=== PATIENT | male | born 1940 | race Caucasian/White ===

== ENCOUNTER → 2020-01-28 09:28 | Outpatient (BNVA) | payer MEDICARE, SELFPAY | PROVIDERS: PCP Internal Medicine; Referring Provider Internal Medicine; Visit Provider Internal Medicine Cardiovascular Disease | DX: I48.20 Chronic atrial fibrillation, unspecified (principal) | CPT/HCPCS: 93005; 99212 ==

== ENCOUNTER 2020-02-26 11:00 | Outpatient (REF) | payer MEDICARE, SELFPAY ==
[2020-02-26 14:15] LABS: MANUAL DIFF FLAG NO
[2020-02-26 14:22] LABS: Basophils Absolute Auto 0.1 X10*3/uL (0.0-0.2); Basophils Percent Auto 0.8 % (0-2); Eosinophils Absolute Auto 0.4 X10*3/uL (0.0-0.4); Eosinophils Percent Auto 3.9 % (0-4); Hematocrit 44.1 % (42-52); Hemoglobin 14.5 g/dl (14.0-18.0); Imm Gran Abs Auto 0.04 X10*3/uL (0.00-0.03); Imm Gran Pct Auto 0.4 % (0.0-0.4); Lymphocytes Percent Auto 19.1 % (20-40); Mean Corpuscular HGB Conc 32.9 g/dl (31.0-36.0); Mean Corpuscular Hemoglobin 30.3 pg (27.0-33.0); Mean Corpuscular Volume 92.3 fL (80-98); Mean Platelet Volume 9.8 fL (9.4-12.4); Monocytes Percent Auto 9.5 % (2-11); Neutrophils Absolute Auto 6.8 X10*3/uL (2.0-8.3); Neutrophils Percent Auto 66.3 % (45-73); Platelet Count 333 X10*3/uL (160-400); Red Blood Count 4.78 X10*6/uL (4.60-5.80); Red Cell Distribution Width 12.3 % (11.0-16.0); White Blood Count 10.3 X10*3/uL (4.8-10.8)
[2020-02-26 14:44] LABS: Alanine Aminotransferase 8 U/L (0-40); Albumin Level 4.1 g/dL (3.5-5.0); Alkaline Phosphatase 110 U/L (39-117); Anion Gap 13 (12-20); Aspartate Amino Transferase 10 U/L (5-37); Bilirubin Total 0.4 mg/dL (0.0-1.0); Blood Urea Nitrogen 17 mg/dL (9-16); Calcium 9.1 mg/dL (8.4-10.2); Carbon Dioxide 31 mmol/L (22-29); Chloride 97 mmol/L (96-108); Estimated Glomerular Filt Rate > 60; Glucose Random 83 mg/dL (60-115); Potassium 4.9 mmol/l (3.3-5.1); Sodium 136 mmol/L (135-145); Total Protein 6.6 g/dL (6.5-8.0)
== END 2020-02-26 11:01 | disposition home or self-care (01) ==
LOC: HO.10HDL 11:00
PROVIDERS: Absent Provider Internal Medicine Cardiovascular Disease; PCP Internal Medicine; Visit Provider Internal Medicine
DX: I48.91 Unspecified atrial fibrillation (principal); I10 Essential (primary) hypertension; J44.9 Chronic obstructive pulmonary disease, unspecified; E78.00 Pure hypercholesterolemia, unspecified
CPT/HCPCS: 36415; 80053; 85025

== ENCOUNTER → 2020-09-05 10:24 | Outpatient (BNVA) | payer MEDICARE, SELFPAY | PROVIDERS: PCP Internal Medicine; Visit Provider Nurse Practitioner | DX: Z13.89 Encounter for screening for other disorder (principal) | CPT/HCPCS: Q3014 ==

== ENCOUNTER 2020-10-07 09:53 | Outpatient (REF) | payer MEDICARE, SELFPAY ==
[2020-10-07 10:15] LABS: MANUAL DIFF FLAG NO
[2020-10-07 10:25] LABS: Basophils Absolute Auto 0.1 X10*3/uL (0.0-0.2); Basophils Percent Auto 0.5 % (0-2); Eosinophils Absolute Auto 0.3 X10*3/uL (0.0-0.4); Eosinophils Percent Auto 2.8 % (0-4); Hemoglobin 14.5 g/dl (14.0-18.0); Imm Gran Abs Auto 0.06 X10*3/uL (0.00-0.03); Imm Gran Pct Auto 0.5 % (0.0-0.4); Lymphocytes Absolute Auto 1.9 X10*3/uL (1.2-4.9); Lymphocytes Percent Auto 16.8 % (20-40); Mean Corpuscular Hemoglobin 29.7 pg (27.0-33.0); Mean Platelet Volume 8.9 fL (9.4-12.4); Monocytes Absolute Auto 1.1 X10*3/uL (0.1-1.2); Monocytes Percent Auto 9.6 % (2-11); Neutrophils Absolute Auto 7.9 X10*3/uL (2.0-8.3); Neutrophils Percent Auto 69.8 % (45-73); Platelet Count 346 X10*3/uL (160-400); Red Blood Count 4.89 X10*6/uL (4.60-5.80); Red Cell Distribution Width 12.6 % (11.0-16.0); White Blood Count 11.3 X10*3/uL (4.8-10.8)
[2020-10-07 11:15] LABS: Prostate Specific Antigen Scr 3.07 ng/mL (<0.05-4.0)
[2020-10-07 11:16] LABS: Alanine Aminotransferase 10 U/L (0-40); Albumin Level 4.3 g/dL (3.5-5.0); Alkaline Phosphatase 119 U/L (39-117); Anion Gap 13 (12-20); Aspartate Amino Transferase 10 U/L (5-37); Bilirubin Total 0.8 mg/dL (0.0-1.0); Blood Urea Nitrogen 15 mg/dL (9-16); Calcium 9.6 mg/dL (8.4-10.2); Carbon Dioxide 31 mmol/L (22-29); Chloride 93 mmol/L (96-108); Cholesterol 137 mg/dL; Estimated Glomerular Filt Rate > 60; Glucose Fasting 106 mg/dL (60-99); HDL Cholesterol 45 mg/dL; LDL Cholesterol Calculated 85 mg/dl; Potassium 4.7 mmol/L (3.3-5.1); Sodium 132 mmol/L (135-145); Total Protein 6.9 g/dL (6.5-8.0); Triglycerides 38 mg/dL
== END 2020-10-07 09:54 | disposition home or self-care (01) ==
LOC: HO.10HDL 09:53
PROVIDERS: Visit Provider Internal Medicine
DX: Z12.5 Encounter for screening for malignant neoplasm of prostate (principal); I48.91 Unspecified atrial fibrillation; E78.00 Pure hypercholesterolemia, unspecified; J44.9 Chronic obstructive pulmonary disease, unspecified; I10 Essential (primary) hypertension; N40.0 Benign prostatic hyperplasia without lower urinary tract symptoms
CPT/HCPCS: 36415; 80053; 80061; 84153; 85025

== ENCOUNTER → 2020-12-26 10:18 | Outpatient (REF) | payer MEDICARE, SELFPAY ==
--- NOTE | 2020-12-26 10:30 | CA_ITS ---
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 Normal LV systolic function 2. Mildly dilated left atrium 3. Normal cardiac valvular Doppler 4. Normal RV systolic pressure 5. No gross pericardial effusion Findings Left Ventricle Normal left ventricular size, thickness, and systolic function. The visually estimated ejection fraction is between 60-65%. Diastolic function is indeterminate on the basis of available data. Right Ventricle Normal right ventricular cavity size and systolic function. Atria The left atrium is mildly dilated. There is no evidence of interatrial shunt. The right atrium is normal in size. Aortic Valve There is mild calcification of the aortic valve. There is mild thickening of the aortic valve. There is no aortic valve stenosis. There is no aortic valve regurgitation. Mitral Valve There is mild anterior and posterior mitral leaflet thickening. There is trace mitral valve regurgitation. There is no mitral valve stenosis. Pulmonic Valve The pulmonic valve was not well visualized. Tricuspid Valve Likely normal tricuspid valve structure and function. There is mild tricuspid valve regurgitation. The right ventricular systolic pressure is normal. Normal right atrial pressure. There is no evidence of pulmonary hypertension. Great Vessels All visible segments of the aorta are normal in size. The pulmonary artery was not well visualized. Venous The inferior vena cava is normal in size and collapses greater than 50% with inspiration. Pericardium/Pleural There is no evidence of pericardial effusion. Prior Study Comparison No significant change compared to prior study. Measurements 2D Linear Measurements IVSd: 1.15 0.6-0.9/0.6-1.0 cm LVIDd: 3.76 3.9-5.3/4.2-5.9 cm LVIDd Index: 1.92 2.4-3.2/2.2-3.1 cm/m2 LVIDs: 2.54 2.0-3.6 cm LVPWd: 1.43 0.7-1.1 cm Ao Root: 2.80 2.1-3.5 cm LA Diam: 4.10 2.7-3.8/3.0-4.0 cm LAIDs Index: 2.09 1.5-2.3 cm/m2 LV Mass: 209.75 67-162/88-224 g LV Mass Index: 107.02 43-95/49-115 g/m2 LVOT Diam: 2.30 3.0+(-)1.3 cm 2D Systolic Function EF 4C: 73.60 >55% EF 2C: 55.70 >55% EF BiP: 66.70 >55% Mitral Valve MV Pk E: 0.97 MV Decel Time: 126.00 E'Lateral: 8.54 E'Medial: 7.56 E/E' Med: 12.80 E/E' Lat: 11.30 PHT: 37.00 MVA PHT: 5.95 Decel Murray: 7.68 Aortic Valve AoV Pk Jamel: 1.00 AoV Pk Grad: 4.00 LVOT LVOT Pk Jamel: 0.78 LVOT Mn Jamel: 0.60 LVOT VTI: 0.19 LVOT Pk Grad: 2.00 LVOT Mn Grad: 2.00 LVOT Diam: 2.30 LVOT Area: 4.15 Diastolic Function MV Pk E: 0.97 E'Medial: 7.56 E/E' Med: 12.80 E' Laterial: 8.54 E/E' Lat: 11.30 Right Ventricle TAPSE (mm): 1.82 Tricuspid Valve TR Pk Jamel: 2.79 TR Pk Grad: 31.00 RA Press: 3.00 RVSP: 34.00 Great Vessels Aorta Ao Root-2D: 2.80 2.0-3.7 cm Updated in Other Vendor System with Status of Final Moshe Morgan MD electronically signed on 12/26/2020 5:01:53 PM with status of Final
== END ==
LOC: HO.CARD 10:18
PROVIDERS: PCP Internal Medicine; Visit Provider Internal Medicine
DX: I65.29 Occlusion and stenosis of unspecified carotid artery (principal); I48.91 Unspecified atrial fibrillation; R60.9 Edema, unspecified
CPT/HCPCS: 93306

== ENCOUNTER 2021-01-05 13:45 | Outpatient (REF) | payer MEDICARE, SELFPAY ==
--- NOTE | ~2021-01-05 | US_ITS ---
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 Hypertension. Hyperlipidemia. COMPARISON: Comparison is made to a previous study dated 12/28/2017 which demonstrated bilateral 0-49% internal carotid artery stenoses. TECHNIQUE: Real-time ultrasound and Doppler techniques (integrating B-mode 2-D vascular images, Doppler spectral analysis and color-flow Doppler imaging) were utilized to interrogate the extracranial carotid arteries, the vertebral arteries and proximal subclavian arteries bilaterally. The degree of stenosis is determined by criteria similar to NASCET. FINDINGS: Right Side: 1. There is moderate atherosclerotic plaque seen in the bifurcation/proximal ICA region. 2. The common carotid artery PSV proximally is 112 cm/s and distally 105 cm/s. 3. The proximal internal carotid artery velocities are 150 cm/s systolic and 20 cm/s diastolic. 4. The proximal external carotid artery PSV is 150 cm/s. 5. The vertebral artery shows antegrade flow. 6. The subclavian artery waveforms are normal. Left Side: 1. There is moderate atherosclerotic plaque seen in the bifurcation/proximal ICA region. 2. The common carotid artery PSV proximally is 71 cm/s and distally 73 cm/s. 3. The proximal internal carotid artery velocities are 139 cm/s systolic and 35 cm/s diastolic. 4. The proximal external carotid artery PSV is 147 cm/s. 5. The vertebral artery shows antegrade flow. 6. The subclavian artery waveforms are elevated with stenotic velocities measuring 230 cm/s. US/US carotid duplex BI IMPRESSION: 1. RIGHT: Moderate, hemodynamically significant stenosis of the proximal right internal carotid artery corresponding to a 50-79% stenosis by velocity criteria. 2. LEFT: Moderate, hemodynamically significant stenosis of the proximal left internal carotid artery corresponding to a 50-79% stenosis by velocity criteria. 3. There has been an increase in the category severity of disease bilaterally when compared to the previous study dated 12/28/2017. 4. 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 However, both vertebral arteries remain antegrade. 5. There is an arrhythmia present during the duplex portion of the examination. This would be best evaluated with an EKG.
== END 2021-01-05 13:46 | disposition home or self-care (01) ==
LOC: HO.US 13:45
PROVIDERS: PCP Internal Medicine; Visit Provider Internal Medicine
DX: I65.29 Occlusion and stenosis of unspecified carotid artery (principal); I48.91 Unspecified atrial fibrillation; R60.9 Edema, unspecified
CPT/HCPCS: 93880

== ENCOUNTER → 2021-01-26 10:26 | Outpatient (BNVA) | payer MEDICARE, SELFPAY | PROVIDERS: PCP Internal Medicine; Referring Provider Internal Medicine; Visit Provider Internal Medicine Cardiovascular Disease | DX: I48.20 Chronic atrial fibrillation, unspecified (principal); I10 Essential (primary) hypertension | CPT/HCPCS: 93005; 99212 ==

== ENCOUNTER → 2021-03-03 10:11 | Outpatient (BNVA) | payer MEDICARE, SELFPAY | PROVIDERS: PCP Internal Medicine; Referring Provider Internal Medicine; Visit Provider Nurse Practitioner | DX: K21.9 Gastro-esophageal reflux disease without esophagitis (principal); Z53.20 Procedure and treatment not carried out because of patient's decision for unspecified reasons | CPT/HCPCS: 99212 ==

== ENCOUNTER 2021-03-26 10:20 | Outpatient (REF) | payer MEDICARE, SELFPAY ==
[2021-03-26 13:59] LABS: MANUAL DIFF FLAG NO
[2021-03-26 14:04] LABS: Basophils Absolute Auto 0.1 X10*3/uL (0.0-0.2); Basophils Percent Auto 0.7 % (0-2); Eosinophils Absolute Auto 0.4 X10*3/uL (0.0-0.4); Eosinophils Percent Auto 3.6 % (0-4); Hematocrit 44.7 % (42.0-52.0); Hemoglobin 14.5 g/dl (14.0-18.0); Imm Gran Abs Auto 0.04 X10*3/uL (0.00-0.03); Imm Gran Pct Auto 0.4 % (0.0-0.4); Lymphocytes Percent Auto 17.7 % (20-40); Mean Corpuscular HGB Conc 32.4 g/dl (31.0-36.0); Mean Corpuscular Hemoglobin 30.3 pg (27.0-33.0); Mean Corpuscular Volume 93.3 fL (80.0-98.0); Mean Platelet Volume 9.7 fL (9.4-12.4); Monocytes Absolute Auto 1.2 X10*3/uL (0.1-1.2); Monocytes Percent Auto 10.6 % (2-11); Neutrophils Absolute Auto 7.5 x10*3/uL (2.0-8.3); Platelet Count 311 X10*3/uL (160-400); Red Blood Count 4.79 X10*6/uL (4.60-5.80); Red Cell Distribution Width 12.7 % (11.0-16.0); White Blood Count 11.2 X10*3/uL (4.8-10.8)
[2021-03-26 14:43] LABS: Alanine Aminotransferase 11 U/L (0-40); Alkaline Phosphatase 110 U/L (39-117); Anion Gap 13 (12-20); Aspartate Amino Transferase 12 U/L (5-37); Bilirubin Total 0.6 mg/dL (0.0-1.0); Blood Urea Nitrogen 16 mg/dL (9-16); Calcium 9.5 mg/dL (8.4-10.2); Carbon Dioxide 31 mmol/L (22-29); Chloride 95 mmol/L (96-108); Estimated Glomerular Filt Rate > 60; Glucose Random 77 mg/dL (60-115); Potassium 4.7 mmol/L (3.3-5.1); Sodium 134 mmol/L (135-145); Total Protein 6.7 g/dL (6.5-8.0)
== END 2021-03-26 10:21 | disposition home or self-care (01) ==
LOC: HO.10HDL 10:20
PROVIDERS: Visit Provider Internal Medicine
DX: I48.91 Unspecified atrial fibrillation (principal); J44.9 Chronic obstructive pulmonary disease, unspecified; I73.9 Peripheral vascular disease, unspecified
CPT/HCPCS: 36415; 80053; 85025

== ENCOUNTER 2021-06-11 10:26 | Inpatient (IN) | payer MEDICARE, SELFPAY ==
[2021-06-11] VITALS (11 sets, daily range): BP systolic 135–157; BP diastolic 50–125; PULSE 74–103; RESP 16–22; TEMP 36.8–37; O2SAT 89–95; BMI 23.0
--- NOTE | ~2021-06-11 | XR_ITS ---
EXAMINATION: XR CHEST CLINICAL INFORMATION: Shortness of breath COMPARISON: Previous chest x-rays and chest CT scans most recent 06/11/2021 TECHNIQUE: Frontal view of the chest was obtained. FINDINGS: The cardiac and mediastinal contours are stable. The lungs are well-inflated suggestive of emphysema or COPD. There is right apical pleural thickening that is unchanged. There are calcified pulmonary nodules that are stable. There is airspace disease seen at the left lung base suggestive of a left lower lobe pneumonia. This does not appear appreciably changed from recent exam 06/11/2021 but is new from older exams from February 2019. There is blunting at the bilateral costophrenic angles that is stable questionable for tiny pleural effusions or pleural thickening. There is no Pneumothorax. There are degenerative changes of the spine. XR/XR chest 1V IMPRESSION: Left lower lobe pneumonia not appreciably changed from recent exam 06/11/2021. Hyperinflation right apical pleural thickening and innumerable calcified pulmonary nodules that appear stable.
--- NOTE | ~2021-06-11 | US_ITS ---
EXAMINATION: US VENOUS ULTRASOUND WITH DOPPLER LOWER EXTREMITY, BILATERAL CLINICAL INFORMATION: Edema COMPARISON: None TECHNIQUE: Ultrasound of the deep veins is performed from the hip to the calf with compression sonography and color and pulse Doppler assessment. Spectral analysis with color-flow imaging is performed. FINDINGS: RIGHT: There is normal venous compression and respiratory variation and augmented flow. The visualized common femoral vein, superficial femoral vein, profunda femoral vein, popliteal vein, and the trifurcation region shows no evidence of deep venous thrombosis. There is no significant popliteal fossa cyst. LEFT: There is normal venous compression and respiratory variation and augmented flow. The visualized common femoral vein, superficial femoral vein, profunda femoral vein, popliteal vein, and the trifurcation region shows no evidence of deep venous thrombosis. There is no significant popliteal fossa cyst. If the patient's symptoms persist, followup ultrasound in 5 days 7 days might be of value to exclude proximal propagation from a non-visualized calf vein. US/US venous duplex LE BI IMPRESSION: No DVT demonstrated in the bilateral lower extremities.
--- NOTE | ~2021-06-11 | XR_ITS ---
EXAMINATION: XR CHEST CLINICAL INFORMATION: Shortness of breath COMPARISON: Chest radiograph and chest CT 03/22/2019 TECHNIQUE: 2 views of the chest were obtained. FINDINGS: Compared to the prior study there's been no interval change. Once again noted is normal heart size and emphysematous changes with biapical scarring and innumerable small calcified pulmonary nodules. There is a calcified pleural plaque seen en face in the left midlung better characterized on the prior CT scan. On the lateral radiograph, there is increased patchy density seen overlying the lower thoracic spine suggesting an acute infiltrate in the posterior basal segment of the left lower lobe. This is a new finding when compared to the prior study. XR/XR chest 2V IMPRESSION: Chronic findings as described above with new patchy consolidation in the posterior basal segment of the left lower lobe
--- NOTE | ~2021-06-11 | CT_ITS ---
EXAMINATION: CT ANGIOGRAM OF THE CHEST WITH AND WITHOUT CONTRAST (CT PULMONARY ANGIOGRAM FOR PE) CLINICAL INFORMATION: Reason for Exam sob worsen COMPARISON: Radiograph 06/11/[address] 03/15/2019 . TECHNIQUE: Prior to contrast administration, noncontrast localization images were obtained. Subsequently, multidetector volumetric imaging was performed from the thoracic inlet to below the diaphragms following the administration of 63 mL Omnipaque 350 intravenous contrast. No contrast reaction reported Sagittal, coronal, and MIP oblique sagittal reformatted images were obtained on the CT workstation, uploaded to PACS, and reviewed. This CT examination was performed using dose optimization techniques as appropriate, variously including the following: *Automated exposure control *Adjustment of mA and/or kV according to patient size (this includes techniques or standardized protocols for targeted exams where dose is matched to indication/reason for exam; i.e. extremities or head) *Use of iterative reconstruction technique Total exam dose-length product 357 mGy-cm FINDINGS: QUALITY OF STUDY/CONTRAST BOLUS: Satisfactory. PULMONARY ARTERIES: No central or segmental pulmonary emboli. THORACIC AORTA: No aneurysm or dissection. LUNG: The central airways are patent. Bronchiectasis with bronchial wall thickening in the lower lungs. Severe emphysema again noted. Cystic changes are most prominent at the right apex posteriorly, similar to prior. There is surrounding pleural thickening. Calcified granulomata are seen throughout. Irregular area of cystic change with consolidation in the lingula, unchanged. There is an area of dependent consolidation in the left lower lobe associated with a small left pleural effusion. This finding could be acute. No pneumothorax. MEDIASTINUM: Normal heart size. No pericardial effusion. No hilar or mediastinal lymphadenopathy. No evidence of septal bowing or right heart strain. CHEST WALL/AXILLA: No axillary or internal mammary lymphadenopathy. OSSEOUS STRUCTURES: No acute or suspicious osseous abnormality. Mild degenerative changes of the spine. UPPER ABDOMEN: Unremarkable. No reflux of contrast into the hepatic veins to suggest elevated right heart pressures. CT/CT angio chest PE protocol IMPRESSION: 1. No pulmonary embolism. 2. Severe chronic changes in the lungs with emphysema. Diffuse granulomata with areas of cystic change and pleural thickening. 3. There is a small left pleural effusion with patchy areas of dependent consolidation in the lower lobe. This may be acute infectious/inflammatory in nature. VTE: negative
--- NOTE | 2021-06-11 10:46 | ECG_ITS ---
Test Reason : dyspnea Blood Pressure : / mmHG Vent. Rate : 087 BPM Atrial Rate : 000 BPM P-R Int : 000 ms QRS Dur : 104 ms QT Int : 376 ms P-R-T Axes : 000 028 063 degrees QTc Int : 452 ms Atrial fibrillation Incomplete right bundle branch block Anteroseptal infarct (cited on or before 09-APR-2013) Abnormal ECG When compared with ECG of 15-MAR-2019 16:49, No significant change was found Referred By: Generic ED Physician Electronically Signed By:
--- NOTE | 2021-06-11 11:03 | ED_ITS ---
HPI - SOB/Dyspnea General Chief Complaint: Dyspnea Stated Complaint: diff breathing Time Seen by Provider: 06/11/21 11:03 Source: patient Mode of arrival: ambulatory Limitations: no limitations History of Present Illness HPI Narrative: Patient presents to the emergency department for evaluation of increasing shortn ess of breath, dyspnea on exertion, productive cough with an increased amount of phlegm and congestion for 1 week, Additionally has generalized weakness and worsening bilateral lower extremity edema. Phlegm is a bella color which is normal but is increased in amount. Does not use home O2. Has been using inhalers and nebulizer treatments without significant improvement. Denies any known sick contacts. Denies fevers, chills, nasal congestion, sore throat, chest pain, nausea, vomiting, abdominal pain, constipation, diarrhea, dysuria, urinary frequency/ urgency / hesitancy. Denies any recent falls. Reports hospitalization 2 years ago for pneumonia. Related Data Home Medications Medication Instructions Recorded Confirmed albuterol sulfate 2.5 mg INHALATION Q4H PRN 01/28/20 06/11/21 albuterol sulfate 90 mcg/actuation 2 puff INHALATION Q6H PRN 01/28/20 06/11/21 aerosol inhaler apixaban 5 mg tablet 5 mg PO BID 01/28/20 06/11/21 ropinirole 2 mg tablet 2 mg PO BID 01/28/20 06/11/21 diltiazem HCl 120 mg capsule,24 1 cap PO QPM 06/11/21 06/11/21 hr,extended release pantoprazole 40 mg tablet,delayed 40 mg PO DAILY@0630 06/11/21 06/11/21 release tiotropium bromide 2.5 1 spray PO DAILY 06/11/21 06/11/21 mcg/actuation mist for inhalation (Spiriva Respimat) vit C 250 mg-vit E 90 mg-zinc 40 1 tab PO BID 06/11/21 06/11/21 mg-copper 1 [id number]-mupyku capsule (PreserVision AREDS-2) Previous Rx's Medication Instructions Recorded diltiazem HCl 240 mg 240 mg PO DAILY 90 Days #90 cap 11/11/20 capsule,extended release 24 hr atorvastatin 20 mg tablet 20 mg PO DAILY 90 Days #90 tab 02/23/21 metoprolol succinate 100 mg 100 mg PO DAILY 90 Days #90 tab 03/16/21 tablet,extended release 24 hr Allergies Allergy/AdvReac Type Severity Reaction Status Date / Time No Known Allergies Allergy Unknown UNKNOWN Verified 06/11/21 10:46 [NO KNOWN ALLERGIES] Review of Systems Review of Systems: Constitutional: Positive generalized weakness. Positive fatigue. No weight loss, fever, chills. HEENT: No visual loss, blurred vision, double vision or yellow sclera. No hearing loss, sneezing, congestion, runny nose or sore throat. Skin: No rash or itching. Cardiovascular: Positive bilateral pedal edema. No chest pain, chest pressure or chest discomfort. No palpitations. Respiratory: positive shortness of breath. Positive dyspnea on exertion. Positive orthopnea. Positive cough. Positive increased sputum production. Gastrointestinal: No anorexia, nausea, vomiting or diarrhea. No abdominal pain or blood in stool. Genitourinary: No burning micturition. No urinary frequency or incontinence. Neurologic: No headache, dizziness, syncope, unilateral weakness, ataxia, numbness or tingling in the extremities. Musculoskeletal: Positive body aches. No back pain, joint pain or stiffness. Hematologic: No bleeding or bruising. Lymphatics: No enlarged lymph nodes. Psychiatric:No depression or anxiety. Endocrine: No polyuria or polydipsia. Yes all other systems are reviewed and are negative PMFSH Past Medical History Attestation statement: The following information was validated with the patient. Source: old records reviewed Medical History Bilateral carotid artery disease Chronic atrial fibrillation COPD (chronic obstructive pulmonary disease) History of cardiomyopathy History of cardioversion HTN (hypertension) Hyperlipidemia Surgical History History of tonsillectomy and adenoidectomy Hx of cardiac cath Hx of colonoscopy Family History Family History Father Stroke CVD (cardiovascular disease) Mother Colon cancer Diabetes Sister Diabetes COPD (chronic obstructive pulmonary disease) Breast cancer Social History Social History Household Members: Spouse Housing: House Do you presently have visiting nurse or other home services: No Patient Tobacco Use Status: Former Tobacco user Quit Date: 2001 Tobacco use type: Cigarette Smoked in Last 30 Days: No Use of substances other than those prescribed or required for medical reasons: No Have you been hit, kicked, punched, or otherwise hurt by someone within the past year? If so, by whom?: No Do you feel safe in your current relationship?: Yes Is there a partner from a previous relationship who is making you feel unsafe now?: No Are you made to feel afraid or neglected: No Advance Directives: Yes Advance Directives Information Provided: Yes Advance Directives on File: No Advance Directives Date on File: 06/11/21 Do you have thoughts of harming others: None Do you have a plan to hurt others: No Plan Recently lost weight without trying: No Physical Exam Vital Signs: Vital Signs: Last Vital Signs Temp 98.6 F 06/11/21 16:00 Pulse 87 06/11/21 20:00 Resp 20 06/11/21 20:00 BP 153/78 H 06/11/21 20:00 Pulse Ox 94 06/11/21 20:00 BMI result Body Mass Index 23.0 Vital signs have been reviewed and appeared to be correct. Hypertensive.? Heart rate normal.? Tachypnea.. Temperature normal.? Oxygen saturation normal. Appearance: Alert.?Oriented to person, place and time. No acute distress.?Normal affect. Eyes: Pupils equal, round and reactive to light.? ENT: Pharynx normal.?? Neck: Normal inspection.? Neck supple.?? CVS: Heart sounds normal. Normal heart rate and rhythm.? Pulses normal.?? Respiratory: tachypnea. Increased work of breathing.? Lung sounds with rhonchi bilaterally?? Abdomen: Soft and non-tender. Normoactive bowel sounds. No pulsatile mass.?? Skin: Skin warm and dry.? Normal skin color.? Normal skin turgor.?? Extremities: 2+ bilateral lower extremity edema.? No calf ttp? Neuro: Moves all extremities spontaneously. Sensation intact bilaterally. CN II- XII intact. No focal neuro deficits. Ambulates with normal steady gait. Course Course Course Narrative: Patient is a 81-year-old male with a past medical history of carotid artery disease, atrial fibrillation on Eliquis, COPD, cardiomyopathy, hypertension, and hyperlipidemia. Presenting to the emergency department for shortness breath. He is tachypneic with rhonchi bilaterally, afebrile, no tachycardia, O2 saturation noted to drop to 92% on room air while talking, mild increased work of breathing. At this time managing airway, speaking clears short sentences. Will obtain CBC to evaluate for leukocytosis/ anemia, CMP to evaluate for abnormal electrolytes /abnormal renal function/ abnormal hepatic function, EKG and troponin to evaluate for ischemia/ACS. Chest x-ray to evaluate for consolidation/ infiltrate/ mass/ pulmonary congestion. Urinalysis to evaluate for infection. Patient received DuoNeb updraft, total albuterol 10 mg, methylprednisolone 125 mg. Disposition pending results. Reevaluation(s) Reevaluation #1: CBC reveals leukocytosis WBC 14.0 with left shift, mild normocytic anemia with hemoglobin 12.9 and hematocrit 36.8. Troponin <3.5, EKG reveals atrial fibrillation with incomplete RBBB, no acute concerns for ischemia, no active chest pain. BNP 99. Covid-19 and Influenza are negative. significant hypernatremia of 117, no neurological symptoms, no seizure activity concerning for SIADH. hyperkalemia 5.5, chloride 79, glucose is normal, total protein low 5.9, albumin low 2.3. Chest x-ray concerning for patchy consolidation of the posterior basal segment of the left lower lobe, concerning for pneumonia, ordered blood cultures and lactic acid in addition to ceftriaxone and azithromycin IV. Consulted historic clothing and costume maker Dr. Sloan, for admission to ICU, who accepted patient for transfer. spoke with patient and his , who were both agreeable with plan of care. Time: 12:40 MDM - SOB/Dyspnea Medical Records Attestation: I reviewed the patient's medical records. Lab Data Attestation: I reviewed the patient's lab results. Result diagrams: 06/11/21 11:03 06/11/21 15:07 Labs: Lab Results 06/11/21 06/11/21 06/11/21 Range/Units 10:58 10:58 11:03 WBC 14.0 H (4.8-10.8) X10*3/uL RBC 4.33 L (4.60-5.80) X10*6/uL Hgb 12.9 L (14.0-18.0) g/dl Hct 36.8 L (42.0-52.0) % MCV 85.0 (80.0-98.0) fL MCH 29.8 (27.0-33.0) pg MCHC 35.1 (31.0-36.0) g/dl RDW 11.6 (11.0-16.0) % Plt Count 354 (160-400) X10*3/uL MPV 8.9 L (9.4-12.4) fL Immature Gran % (Auto) 1.8 H (0.0-0.4) % Neut % (Auto) 75.0 H (45-73) % Lymph % (Auto) 7.7 L (20-40) % [place] % (Auto) 15.1 H (2-11) % Eos % (Auto) 0.1 (0-4) % Baso % (Auto) 0.3 (0-2) % Lymph # (Auto) 1.1 L (1.2-4.9) X10*3/uL [place] # (Auto) 2.1 H (0.1-1.2) X10*3/uL Eos # (Auto) 0.0 (0.0-0.4) X10*3/uL Baso # (Auto) 0.0 (0.0-0.2) X10*3/uL Abs Immat Gran (auto) 0.25 H (0.00-0.03) X10*3/uL Absolute Neuts (auto) 10.5 H (2.0-8.3) x10*3/uL Absolute Nucleated RBC 0.000 (0.0-0.012) X10*3/uL Nucleated RBC % (auto) 0.0 (0.0-0.2) /100WBC Smear Tech's Comments VERIFIED Sodium (135-145) mmol/L Potassium (3.3-5.1) mmol/L Chloride (96-108) mmol/L Carbon Dioxide (22-29) mmol/L Anion Gap (12-20) BUN (9-16) mg/dL Creatinine (0.5-1.4) mg/dL Estim Creat Clear Calc Estimated GFR Random Glucose (60-115) mg/dL Calcium (8.4-10.2) mg/dL Total Bilirubin (0.0-1.0) mg/dL Direct Bilirubin (0.0-0.5) mg/dL AST (5-37) U/L ALT (0-40) U/L Alkaline Phosphatase (39-117) U/L Troponin I High Sens (<3.5-35.0) ng/L B-Natriuretic Peptide (<100) pg/mL Total Protein (6.5-8.0) g/dL Albumin (3.5-5.0) g/dL COVID-19 ([facility]AYNE) Negative (Negative) COVID-19 Clin Com See Note Influenza Type A (LUIS E) Negative (Negative) Influenza Type B (LUIS E) Negative (Negative) Influenza A & B Note See Note 06/11/21 06/11/21 Range/Units 11:03 11:03 WBC (4.8-10.8) X10*3/uL RBC (4.60-5.80) X10*6/uL Hgb (14.0-18.0) g/dl Hct (42.0-52.0) % MCV (80.0-98.0) fL MCH (27.0-33.0) pg MCHC (31.0-36.0) g/dl RDW (11.0-16.0) % Plt Count (160-400) X10*3/uL MPV (9.4-12.4) fL Immature Gran % (Auto) (0.0-0.4) % Neut % (Auto) (45-73) % Lymph % (Auto) (20-40) % [place] % (Auto) (2-11) % Eos % (Auto) (0-4) % Baso % (Auto) (0-2) % Lymph # (Auto) (1.2-4.9) X10*3/uL [place] # (Auto) (0.1-1.2) X10*3/uL Eos # (Auto) (0.0-0.4) X10*3/uL Baso # (Auto) (0.0-0.2) X10*3/uL Abs Immat Gran (auto) (0.00-0.03) X10*3/uL Absolute Neuts (auto) (2.0-8.3) x10*3/uL Absolute Nucleated RBC (0.0-0.012) X10*3/uL Nucleated RBC % (auto) (0.0-0.2) /100WBC Smear Tech's Comments Sodium 117 L* (135-145) mmol/L Potassium 5.5 H (3.3-5.1) mmol/L Chloride 79 L (96-108) mmol/L Carbon Dioxide 31 H (22-29) mmol/L Anion Gap 13 (12-20) BUN 13 (9-16) mg/dL Creatinine 0.70 (0.5-1.4) mg/dL Estim Creat Clear Calc 93.3 Estimated GFR > 60 Random Glucose 105 D (60-115) mg/dL Calcium 8.3 L D (8.4-10.2) mg/dL Total Bilirubin 0.9 (0.0-1.0) mg/dL Direct Bilirubin 0.4 (0.0-0.5) mg/dL AST 21 D (5-37) U/L ALT 18 (0-40) U/L Alkaline Phosphatase 108 (39-117) U/L Troponin I High Sens < 3.5 (<3.5-35.0) ng/L B-Natriuretic Peptide 99 (<100) pg/mL Total Protein 5.9 L (6.5-8.0) g/dL Albumin 3.3 L (3.5-5.0) g/dL COVID-19 (DWAYNE) (Negative) COVID-19 Clin Com Influenza Type A (LUIS E) (Negative) Influenza Type B (LUIS E) (Negative) Influenza A & B Note Imaging Data Chest x-ray: Radiologist's impression: XR/XR chest 2V IMPRESSION: Chronic findings as described above with new patchy consolidation in the posterior basal segment of the left lower lobe ECG Data Attestation: I personally reviewed and interpreted this ECG as follows: ECG interpretation date: 06/11/21 ECG interpretation time: 12:10 Prior ECG tracings: available for review Interpretation: Rate: 93 Rhythm:? atrial fibrillation, incomplete RBBB [place]:? normal Normal QRS complex.?? ST T wave :?? no ST elevation, no ST depression, no T-wave inversion qTC: 467 prior studies:? February 2019 The study has been interpreted contemporaneously by me. Critical Care Time Critical Care Time Critical Care Time: Yes Total Critical Care Time: 40 Attestation: I personally attest to this time spent taking care of the patient. Discharge Plan Discharge Clinical Impression: Hyponatremia Patient Disposition: Admitted As Inpatient Interventions: Admission Worksheet (ED) Last Done: 06/11/21 15:35 Discharge Date/Time: 06/11/21 15:00
[2021-06-11] MEDS: methylPREDNISolone Sod Succ 125 MG/2 ML VIAL IVPUSH (11:23)
[2021-06-11 11:24] LABS: Basophils Percent Auto 0.3 % (0-2); Eosinophils Percent Auto 0.1 % (0-4); Hematocrit 36.8 % (42.0-52.0); Hemoglobin 12.9 g/dl (14.0-18.0); Imm Gran Abs Auto 0.25 X10*3/uL (0.00-0.03); Imm Gran Pct Auto 1.8 % (0.0-0.4); Lymphocytes Absolute Auto 1.1 X10*3/uL (1.2-4.9); Lymphocytes Percent Auto 7.7 % (20-40); MANUAL DIFF FLAG SCAN; Mean Corpuscular HGB Conc 35.1 g/dl (31.0-36.0); Mean Corpuscular Hemoglobin 29.8 pg (27.0-33.0); Mean Platelet Volume 8.9 fL (9.4-12.4); Monocytes Absolute Auto 2.1 X10*3/uL (0.1-1.2); Monocytes Percent Auto 15.1 % (2-11); Neutrophils Absolute Auto 10.5 x10*3/uL (2.0-8.3); Platelet Count 354 X10*3/uL (160-400); Red Blood Count 4.33 X10*6/uL (4.60-5.80); Red Cell Distribution Width 11.6 % (11.0-16.0); SCAN SMEAR FLAG 1
[2021-06-11 11:26] LABS: COVID-19 Test Negative (Negative); IDNOW Serial# 16C4AD1C
[2021-06-11 11:27] LABS: Influenza A Negative (Negative); Influenza B2 Negative (Negative)
[2021-06-11] MEDS: Albuterol Sulfate (0.083%) 2.5 MG/3 ML VIAL.NEB 7.5 MG INHALE (11:36)
[2021-06-11] MEDS: Albuterol/Iprat 2.5/0.5MG 3 ML AMPUL.NEB INHALE (11:36)
[2021-06-11 11:49] LABS: B Type Natriuretic Peptide 99 pg/mL (<100); Troponin-I High Sensitivity < 3.5 ng/L (<3.5-35.0)
[2021-06-11 12:12] LABS: Blood Urea Nitrogen 13 mg/dL (9-16); Calcium 8.3 mg/dL (8.4-10.2); Creatinine Clr Calc Pharmacy 93.3; Estimated Glomerular Filt Rate > 60; Glucose Random 105 mg/dL (60-115)
[2021-06-11 12:22] LABS: Anion Gap 13 (12-20); Carbon Dioxide 31 mmol/L (22-29); Chloride 79 mmol/L (96-108); Potassium 5.5 mmol/L (3.3-5.1); Sodium 117 mmol/L (135-145)
[2021-06-11 12:48] LABS: SLIDE REVIEW VERIFIED
[2021-06-11 12:55] LABS: Alanine Aminotransferase 18 U/L (0-40); Albumin Level 3.3 g/dL (3.5-5.0); Alkaline Phosphatase 108 U/L (39-117); Aspartate Amino Transferase 21 U/L (5-37); Bilirubin Direct 0.4 mg/dL (0.0-0.5); Bilirubin Total 0.9 mg/dL (0.0-1.0); Total Protein 5.9 g/dL (6.5-8.0)
[2021-06-11 13:43] LABS: Lactic Acid 2.7 mmol/L (0.5-2.0)
[2021-06-11] MEDS: Furosemide 20 MG/2 ML VIAL IVPUSH (14:00)
[2021-06-11] MEDS: cefTRIAXone sodium 1 GM in 0.9 % Sodium Chloride 50 ML IV (14:01)
[2021-06-11 14:39] LABS: Cancel Lactic Acid Canceled
--- NOTE | 2021-06-11 14:40 | P.HPCC_ITS ---
History of Present Illness Date of Service: 06/11/21 Attending physician on admission: Abdi Sloan Chief Complaint: Hyponatremia Mr. Marsh is being admitted to the ICU for management of severe hyponatremia. The patient is a 81-year-old man with past medical history of PVD with bilateral carotid artery disease and s/p left femoral stent, chronic atrial fibrillation on Eliquis, COPD 2? former smoking, hypertension, hyperlipidemia, GERD, rectal cancer s/p local excision with no chemo or XRT, alcoholism, and history of influenza pneumonia two years ago.? The patient has had multiple prior episodes of hyponatremia, in 2018, 2019, and 2020.? Lives with his , independent w ADLs, normally does not have AMADOR with usual activity, does not have orthopnea. No h/o heart failure.. MEDS at home include Eliquis, diltiazem and metoprolol. ECHOcardiogram 12/2020 showed normal LV systolic function, normal RV cavity size and function, mildly dilated left atrium, normal right atrium, normal cardiac valvular Dopplers, normal IVC, normal RV systolic pressure. The patient presented ambulatory to the ED about 11am for evaluation of increasing shortness of breath, dyspnea on exertion, productive cough with an increased amount of phlegm and congestion for 1 week,?? Additionally has genera lized weakness and worsening bilateral lower extremity edema.? Phlegm is a bella color which is normal but is increased in amount.? Does not use home O2.? Has been using inhalers and nebulizer treatments without significant improvement.? Denied any known sick contacts.? Denied fevers, chills, nasal congestion, sore throat, chest pain, nausea, vomiting, abdominal pain, constipation, diarrhea, dysuria, urinary frequency/ urgency / hesitancy.? Denied any recent falls.? Reported hospitalization two years ago for pneumonia. In the ED, the patient was afebrile, mildly tachypneic, hypertensive, with a sat of 95% on room air, that decreased to 92% with talking.? On exam he had increased work of breathing with bilateral rhonchi.? Neuro exam was intact.? He had at least 2+ periph edema. Labs in the ED notable for white count of 14, hemoglobin down to 12.9, sodium 117 (was 134 two months ago), BUN/creatinine 13/0.7, serum bicarb 31, potassium 5.5, serum albumin 3.3 (was 4.0 two months ago).? BNP was 99.? Lactate 2.7.? EKG showed atrial fibrillation with right bundle-branch block.? Chest x-ray was notable for marked emphysematous changes on the lateral radiograph, there is a suggestion of a new infiltrate in the posterior basal segment of the left lower lobe compared to the chest CT of 03/22/2019. The patient was given no fluids.? He was given ceftriaxone, Zithromax, and Solu- Medrol. ?The ICU was called and the patient was admitted to the ICU for management of hyponatremia. On my exam, the patient is awake, alert, and oriented, although when I asked him about his previous episodes of hyponatremia, he did not know anything about it.? His main complaint seems to be weakness and the swelling in his legs, he says he can?t walk.? He also has severe AMADOR, walking just a few steps, and severe orthop johny.? Hasn?t slept in his bed in over a week.? At rest he was breathing easy on room air with sat 92%.? He has no jugular venous distention with the head of the bed at about 45 degrees.? Auscultation of the chest shows diffuse coarse expiratory crackles, most of which seem to be coming from his upper airway.? His expiratory phase is completely normal.? Heart tones are very soft.? I heard no murmur or gallops.? He has at least 2+ lower extremity pitting edema. My bedside ECHOCARDIOGRAM:? Difficult to estimate EF bec of Afib, but LV size and fxn appears normal, with no wall motion abnormalities.? RV is mildly enlarged, with normal function.? No significant cardiac valvular Doppler abnormalities.? Tricuspid valve CWD was unremarkable.? IVC measured 1.6 cm with greater than 50% inspiratory collapse. IMPRESSION: 1. Underlying COPD.? Looking at his serum bicarb levels, they?ve all been 31 (just above our upper limit of normal) since 2020.? He may be starting to retain CO2. ?(He?s not on any diuretic as far as I can tell.) 2. Underlying atrial fibrillation, on Eliquis.? We?ll continue the Eliquis here. 3. Severe hyponatremia.? Aysmptomatic, so usual management, aiming for limited rise in the serum sodium over 24 hours. ?We?ll start off with just Lasix. 4. ?Although the chest x-ray is not very impressive, his symptoms are very out of proportion, possibly because he has pneumonia on top of severe COPD.? At this point in time, I do not think there is a need for a chest CT, but if he is not better within the next day or two, he?ll need one.? We?ll continue the ceftriaxone and Zithromax.? We?ll try to get a sputum sample. 5. Elevated lactate.? Undetermined etiology.? The patient is not septic, and I don?t think he?s dry.? Probably from his beta agonist nebs.? No need for a repeat. ADDENDUM at 1600.? Repeat S-Na was 116.? I?ll start him on low dose hypertonic saline.? D/W Dr. Santoyo (renal).? Later on or tomorrow we?ll start him on urea +/- salt tabs. Critical care time: 75+ min. [facility] Past Medical History Medical History Bilateral carotid artery disease Chronic atrial fibrillation COPD (chronic obstructive pulmonary disease) History of cardiomyopathy History of cardioversion HTN (hypertension) Hyperlipidemia Family History Family History Father Stroke CVD (cardiovascular disease) Mother Colon cancer Diabetes Sister Diabetes COPD (chronic obstructive pulmonary disease) Breast cancer Surgical History Surgical History History of tonsillectomy and adenoidectomy Hx of cardiac cath Hx of colonoscopy Social History Social History Household Members: Spouse Housing: House Do you presently have visiting nurse or other home services: No Patient Tobacco Use Status: Former Tobacco user Quit Date: 2001 Tobacco use type: Cigarette Smoked in Last 30 Days: No Use of substances other than those prescribed or required for medical reasons: No Have you been hit, kicked, punched, or otherwise hurt by someone within the past year? If so, by whom?: No Do you feel safe in your current relationship?: Yes Is there a partner from a previous relationship who is making you feel unsafe now?: No Are you made to feel afraid or neglected: No Advance Directives: Yes Advance Directives Information Provided: Yes Advance Directives on File: No Advance Directives Date on File: 06/11/21 Do you have thoughts of harming others: None Do you have a plan to hurt others: No Plan Recently lost weight without trying: No Meds Allergies Allergy/AdvReac Type Severity Reaction Status Date / Time No Known Allergies Allergy Unknown UNKNOWN Verified 06/11/21 10:46 [NO KNOWN ALLERGIES] Active Medications: Current Medications Pharmacy Consult (Consult Rx Perform Med Rec) 1 each MISCELLANE ONCE PRN PRN Reason: Consult order Home Medications Medication Instructions Recorded Confirmed Last Taken Type albuterol sulfate 2.5 mg INHALATION Q4H PRN 01/28/20 06/11/21 Unknown History albuterol sulfate 90 mcg/actuation 2 puff INHALATION Q6H PRN 01/28/20 06/11/21 Unknown History aerosol inhaler apixaban 5 mg tablet 5 mg PO BID 01/28/20 06/11/21 Unknown History ropinirole 2 mg tablet 2 mg PO BID 01/28/20 06/11/21 Unknown History diltiazem HCl 120 mg capsule,24 1 cap PO QPM 06/11/21 06/11/21 Unknown History hr,extended release pantoprazole 40 mg tablet,delayed 40 mg PO DAILY@0630 06/11/21 06/11/21 Unknown History release tiotropium bromide 2.5 1 spray PO DAILY 06/11/21 06/11/21 Unknown History mcg/actuation mist for inhalation (Spiriva Respimat) vit C 250 mg-vit E 90 mg-zinc 40 1 tab PO BID 06/11/21 06/11/21 Unknown History mg-copper 1 [id number] capsule (PreserVision AREDS-2) Physical Exam Vital Signs: Vital Signs: Last Vital Signs Temp 98.3 F 06/11/21 10:43 Pulse 84 06/11/21 11:37 Resp 22 H 06/11/21 11:37 BP 146/125 H 06/11/21 10:43 Pulse Ox 95 06/11/21 10:43 BMI result Body Mass Index 23.0 Results Labs CBC and Chem 7: 06/11/21 11:03 06/11/21 15:07 Labs: Laboratory Results - last 24 hr 06/11/21 06/11/21 06/11/21 10:58 10:58 11:03 MCV 85.0 MCH 29.8 MCHC 35.1 RDW 11.6 Plt Count 354 MPV 8.9 L Immature Gran % (Auto) 1.8 H Neut % (Auto) 75.0 H Lymph % (Auto) 7.7 L Wayne % (Auto) 15.1 H Eos % (Auto) 0.1 Baso % (Auto) 0.3 Lymph # (Auto) 1.1 L Wayne # (Auto) 2.1 H Eos # (Auto) 0.0 Baso # (Auto) 0.0 Abs Immat Gran (auto) 0.25 H Absolute Neuts (auto) 10.5 H Absolute Nucleated RBC 0.000 Nucleated RBC % (auto) 0.0 Smear Tech's Comments VERIFIED Anion Gap Estim Creat Clear Calc Estimated GFR Random Glucose Lactic Acid Calcium Total Bilirubin Direct Bilirubin AST ALT Alkaline Phosphatase Troponin I High Sens B-Natriuretic Peptide Total Protein Albumin COVID-19 (DWAYNE) Negative COVID-19 Clin Com See Note Influenza Type A (LUIS E) Negative Influenza Type B (LUIS E) Negative Influenza A & B Note See Note 06/11/21 06/11/21 06/11/21 11:03 11:03 13:20 MCV MCH MCHC RDW Plt Count MPV Immature Gran % (Auto) Neut % (Auto) Lymph % (Auto) Wayne % (Auto) Eos % (Auto) Baso % (Auto) Lymph # (Auto) Wayne # (Auto) Eos # (Auto) Baso # (Auto) Abs Immat Gran (auto) Absolute Neuts (auto) Absolute Nucleated RBC Nucleated RBC % (auto) Smear Tech's Comments Anion Gap 13 Estim Creat Clear Calc 93.3 Estimated GFR > 60 Random Glucose 105 D Lactic Acid 2.7 H* Calcium 8.3 L D Total Bilirubin 0.9 Direct Bilirubin 0.4 AST 21 D ALT 18 Alkaline Phosphatase 108 Troponin I High Sens < 3.5 B-Natriuretic Peptide 99 Total Protein 5.9 L Albumin 3.3 L COVID-19 (DWAYNE) COVID-19 Clin Com Influenza Type A (LUIS E) Influenza Type B (LUIS E) Influenza A & B Note Imaging Radiologist's Impressions: Impressions Chest X-Ray 06/11/21 11:30 IMPRESSION: Chronic findings as described above with new patchy consolidation in the posterior basal segment of the left lower lobe Critical Care Time Critical Care Time (minutes): 90
--- NOTE | 2021-06-11 14:55 | PHA.MEDREC ---
Addendum entered by Nicolasa Diaz [facility] 06/11/21 15:04: Spoke with Dr. Morgan, patient is on both strengths of Diltiazem 240 mg in am and 120 mg in evening. Original Note: Pharmacy Consult ? Medication Reconciliation Pharmacy has completed the medication reconciliation. Spoke with patient in the ED and also spoke with the patients . Pts listed off all medications. Pts unsure if he took his morning medications. Pt is on two different strengths of Diltiazem 120 mg [address] Morgan is prescribing the [address] Cifuentes is prescribing his 120 mg dose and patient is taking both and filling both regularly.
[2021-06-11] MEDS: Azithromycin 500 MG in 0.9 % Sodium Chloride 250 ML 125 MG IV (15:01)
--- NOTE | 2021-06-11 15:15 | CA_ITS ---
Transthoracic Echocardiogram Patient (Last, First, Middle): Mac Marsh A Gender: Male Date of : 1940 Age: 81 Procedure Date: 06/11/2021 Procedure Type: Transthoracic Echocardiogram Location: ICU Height: 182.88 cm Weight: 77.11 kg BSA: 1.99 m2 Heart Rate: bpm BP: 157 / 84 mmHg Nc Manager: BILLY Polo MD: Abdi Sloan MD Partition Assembly Machine Operator: Moshe Morgan MD Symptoms: severe AMADOR and orthopnea; r/o CHF Study Quality: Fair ECG Rhythm: Atrial Fibrillation Conclusions: - 1. Limited study performed 2. Normal biventricular systolic function with mildly dilated right-sided chambers and left atrium 3. Normal RV systolic pressure Findings Left Ventricle Normal left ventricular size, thickness, and systolic function. The visually estimated ejection fraction is between 55-60%. Diastolic function is indeterminate on the basis of available data. Right Ventricle Mildly increased right ventricular cavity size. There is normal right ventricular systolic function. Atria The left atrium is mildly dilated. Interatrial shunt cannot be excluded. The right atrium is moderately dilated. Tricuspid Valve Likely normal tricuspid valve structure and function. There is mild tricuspid valve regurgitation. The right ventricular systolic pressure is 14 mmHg. There is no evidence of pulmonary hypertension. Venous The inferior vena cava is normal in size and collapses greater than 50% with inspiration. Prior Study Comparison No significant change compared to prior study dated: 12/26/2020. Measurements Right Ventricle TAPSE (mm): 20.80 Tricuspid Valve TR Pk Jamel: 1.63 TR Pk Grad: 11.00 RA Press: 3.00 RVSP: 14.00 Updated in Other Vendor System with Status of Final Moshe Morgan MD electronically signed on 06/11/2021 4:27:55 PM with status of Final
[2021-06-11 15:17] LABS: Appearance Urine CLEAR; Color Urine YELLOW; Glucose Urine UA NEG (NEG); Leukocyte Esterase Urine NEG (NEG); Nitrite Urine NEG (NEG); PH 5.5 (5.0-8.0); Urine Blood NEG (NEG); Urine Ketones 15 MG/DL (NEG); Urine Protein TRACE MG/DL (NEG-TRACE)
[2021-06-11 15:30] LABS: Sodium 116 mmol/L (135-145)
--- NOTE | 2021-06-11 15:39 | PC.NURSE ---
Pt admitted to ICU from ED arrived in stretcher ambulated 4 ft to bed from [facility], voided 700ml urine, U/A sent, azithromycin running 20 R ac, serum sodium rechecked 116, pt was on 2L/min NC SaO2 was 98% CO2 was high 31 so i took pt off o2. MD aWARE. Med rec verified with , MD in at bedside, CA echo performed. pt breathing is labored, orthopnea noted, AMADOR noted, right throughout inssp/exp rhonchi w/ insp wheeze, intermittent strong prod cough waiting for sputum sample, lungs dim globally. Bed locked and in lowest position, call spence in reach.
[2021-06-11 20:23] LABS: Sodium 115 mmol/L (135-145)
[2021-06-11] MEDS: rOPINIRole HCL 2 MG TABLET PO (22:20)
[2021-06-11] MEDS: Metoprolol Succinate ER 25 MG TAB.ER.24H PO (22:20)
[2021-06-11] MEDS: Apixaban 5 MG TABLET PO (22:20)
[2021-06-11] MEDS: iohexoL 350 MG/ML 100 ML INFUS..BTL IV (22:38)
[2021-06-11] MEDS: Melatonin 3 MG TABLET 6 MG PO (22:52)
[2021-06-11 22:58] LABS: Anion Gap 13 (12-20); Blood Urea Nitrogen 12 mg/dL (9-16); Calcium 8.1 mg/dL (8.4-10.2); Carbon Dioxide 26 mmol/L (22-29); Chloride 82 mmol/L (96-108); Creatinine Clr Calc Pharmacy 93.3; Estimated Glomerular Filt Rate > 60; Glucose Random 158 mg/dL (60-115); Potassium 4.6 mmol/L (3.3-5.1); Sodium 116 mmol/L (135-145); Uric Acid 4.4 mg/dL (3.4-7.0)
[2021-06-11 23:03] LABS: D Dimer High Sensitivity 380 NG/ML
[2021-06-11] MEDS: levoFLOXacin/D5W 500 MG/100 ML PIGGYBACK 100 MG IV (23:40)
[2021-06-12] VITALS (20 sets, daily range): BP systolic 135–169; BP diastolic 67–94; PULSE 83–116; RESP 14–25; TEMP 36.4–37.1; O2SAT 89–97; BMI 22.6
--- NOTE | 2021-06-12 01:37 | PC.NURSE ---
Addendum entered by Christophe Carlisle RN 06/12/21 06:40: PATIENT STATED HE QUIT DRINKING BEER 2 YEARS AGO..NO CURRENT USE Addendum entered by Christophe Carlisle RN 06/12/21 06:00: AM [id number]...ICU PA AWARE...3% SALINE WEANED TO 20 CC/HR...FOR 9AM LAB DRAW Addendum entered by Christophe Carlisle RN 06/12/21 05:31: PREMIXED 3% SALINE UNABLE TO SCAN...MED CO-VERFIED AND HUNG 0520...AM LABS DRAWN 05:30 AND PENDING Addendum entered by Christophe Carlisle RN 06/12/21 05:02: CARDIZEM QHS ORDERED BY PA...5AM DOSE IN APR HELD PER PA..TO START 9PM TONIGHT PER [facility] Addendum entered by Christophe Carlisle RN 06/12/21 03:58: 03:19 SODIUM =[id number]....ICU PA AWARE...3% SODIUM CONTINUE 40 CC/HR..FOR F/U LABS THIS AM APPROX 05:30 PER PA...NEUROLOGIC ASSESSMENT UNCHANGED... Original Note: CARE ASSUMED 23:15..AWAKE..ALERT..ORIENTED X3...BP STABLE...ATRIAL FIB CONTROLLED HR....MILD AMADOR..PRODUCTIVE COUGH..RAISES THICK BOWMAN SPUTUM...3% SALINE INFUSING 40 CC/HR....STANDS TO VOID STEADY GAIT....RADIOLOGY AT BEDSIDE AT FOR US LEGS...(-) DVT....REMAINS BILATERAL LOWER LEG/PEDAL EDEMA...ICU PA PRESENT...WATER PITCHER REMOVED FROM BEDSIDE AND PROVIDED WITH ICE CHIPS AND SIPS H20 PER PA...REPEAT [id number]...PA PRESENT AND AWARE...REPEAT 3% SALINE HUNG @ 40 CC/HR X150ML...FOR REPEAT SODIUM LEVEL 3AM AND 6AM....SAO2 91-92% ROOM AIR AWAKE...SAO2 88-89% ASLEEP...O2 1 L/M CANNULA APPLIED...SAO2 95% ASLEEP...DENIES DISCOMFORT WHEN AWAKE...REPEAT 3% SALINE BAG FROM PHARMACY UNABLE TO SCAN...MED CO-VERIFIED..CURRENTLY DOZING
[2021-06-12 03:54] LABS: Sodium 119 mmol/L (135-145)
[2021-06-12] MEDS: Omeprazole 20 MG CAPSULE.DR PO (05:19)
[2021-06-12 05:28] LABS: MANUAL DIFF FLAG NO
[2021-06-12 05:31] LABS: Basophils Percent Auto 0.2 % (0-2); Hematocrit 36.2 % (42.0-52.0); Hemoglobin 12.9 g/dl (14.0-18.0); Imm Gran Abs Auto 0.41 X10*3/uL (0.00-0.03); Imm Gran Pct Auto 3.2 % (0.0-0.4); Lymphocytes Absolute Auto 0.7 X10*3/uL (1.2-4.9); Lymphocytes Percent Auto 5.8 % (20-40); Mean Corpuscular HGB Conc 35.6 g/dl (31.0-36.0); Mean Corpuscular Hemoglobin 29.9 pg (27.0-33.0); Mean Platelet Volume 8.5 fL (9.4-12.4); Monocytes Absolute Auto 0.6 X10*3/uL (0.1-1.2); Monocytes Percent Auto 4.7 % (2-11); Neutrophils Absolute Auto 10.9 x10*3/uL (2.0-8.3); Neutrophils Percent Auto 86.1 % (45-73); Platelet Count 379 X10*3/uL (160-400); Red Blood Count 4.31 X10*6/uL (4.60-5.80); Red Cell Distribution Width 11.8 % (11.0-16.0); White Blood Count 12.6 X10*3/uL (4.8-10.8)
[2021-06-12 05:52] LABS: Alanine Aminotransferase 18 U/L (0-40); Albumin Level 3.2 g/dL (3.5-5.0); Alkaline Phosphatase 104 U/L (39-117); Anion Gap 13 (12-20); Aspartate Amino Transferase 18 U/L (5-37); Bilirubin Total 0.5 mg/dL (0.0-1.0); Blood Urea Nitrogen 10 mg/dL (9-16); Calcium 8.3 mg/dL (8.4-10.2); Carbon Dioxide 27 mmol/L (22-29); Chloride 87 mmol/L (96-108); Creatinine Clr Calc Pharmacy 97.4; Estimated Glomerular Filt Rate > 60; Glucose Random 138 mg/dL (60-115); Potassium 4.9 mmol/L (3.3-5.1); Sodium 122 mmol/L (135-145)
[2021-06-12 06:18] LABS: Sodium 116 mmol/L (135-145)
[2021-06-12] MEDS: Metoprolol Succinate ER 100 MG TAB.ER.24H PO (08:25)
[2021-06-12] MEDS: Multivitamin TABLET 1 TAB PO (08:25)
[2021-06-12] MEDS: rOPINIRole HCL 2 MG TABLET PO ×2 (08:26→19:48)
[2021-06-12] MEDS: Apixaban 5 MG TABLET PO ×2 (08:26→19:48)
[2021-06-12] MEDS: Urea 15 GM POWDER 30 GM PO (08:26)
[2021-06-12 09:40] LABS: Anion Gap 15 (12-20); Carbon Dioxide 26 mmol/L (22-29); Chloride 87 mmol/L (96-108); Potassium 4.8 mmol/L (3.3-5.1); Sodium 123 mmol/L (135-145)
--- NOTE | 2021-06-12 10:19 | MHC.CM.PN ---
Met with pt and spouse to discuss d/c planning; Pt resides with spouse and is independent with all care needs at baseline. He has no services and has a cane prn. Pt drives and has no barriers to care. PCP Dr. Cifuentes, HCP at home: copy requested, BLAS vax x4, IMM in chart. D/C PLAN: home: no services.
--- NOTE | 2021-06-12 10:27 | P.CONNP_ITS ---
History of Present Illness Reason for Consult Consult date: 06/12/21 Reason for consult: Hyponatremia Requesting physician: Abdi Sloan Chief Complaint Chief complaint: Hyponatremia History of Present Illness Narrative: 81-year-old man with past medical history of chronic atrial fibrillation on Eliquis, COPD 2? former smoking, hypertension, hyperlipidemia, GERD, rectal cancer s/p local excision with no chemo or XRT, and alcoholism who presented to [facility] ED with increasing shortness of breath, dyspnea on exertion, productive cough with an increased amount of phlegm and congestion for 1 week. He was also noted to have generalized weakness and worsening bilateral lower extremity edema. In the ED, the patient was afebrile, mildly tachypneic, hypertensive, with a sat of 95% on room air, that decreased to 92% with talking. Noted to have edema on presentation ~ 2+. ROS otherwise negative. Review of Systems Review of Systems Yes all other systems are reviewed and are negative PMFSH Past Medical History Medical History Bilateral carotid artery disease Chronic atrial fibrillation COPD (chronic obstructive pulmonary disease) History of cardiomyopathy History of cardioversion HTN (hypertension) Hyperlipidemia Family History Family History Father Stroke CVD (cardiovascular disease) Mother Colon cancer Diabetes Sister Diabetes COPD (chronic obstructive pulmonary disease) Breast cancer Surgical History Surgical History History of tonsillectomy and adenoidectomy Hx of cardiac cath Hx of colonoscopy Social History Social History Household Members: Spouse Housing: House Do you presently have visiting nurse or other home services: No Patient Tobacco Use Status: Former Tobacco user Quit Date: 2001 Tobacco use type: Cigarette Smoked in Last 30 Days: No Use of substances other than those prescribed or required for medical reasons: No Currently Displaying Signs/Symptoms of Drug Intoxication Withdrawal: No Have you been hit, kicked, punched, or otherwise hurt by someone within the past year? If so, by whom?: No Do you feel safe in your current relationship?: Yes Is there a partner from a previous relationship who is making you feel unsafe now?: No Are you made to feel afraid or neglected: No Advance Directives: Yes Advance Directives Information Provided: Yes Advance Directives on File: No Advance Directives Date on File: 06/11/21 Do you have thoughts of harming others: None Do you have a plan to hurt others: No Plan Recently lost weight without trying: No service: No 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al status: retired Meds Allergies Allergy/AdvReac Type Severity Reaction Status Date / Time No Known Allergies Allergy Unknown UNKNOWN Verified 06/11/21 10:46 [NO KNOWN ALLERGIES] Active Medications: Current Medications Albuterol Sulfate (Albuterol Sulfate (0.083%) 2.5 Mg/3 Ml Vial.Neb) 2.5 mg INHALE Q4H PRN PRN Reason: Shortness Of Breath Albuterol Sulfate (Albuterol Sulfate 90 Mcg 8 Gm Inhaler) 2 puff INHALE Q6H PRN PRN Reason: Shortness Of Breath Or Wheezing Apixaban (Apixaban 5 Mg Tablet) 5 mg PO BID [facility] Last Admin: 06/12/21 08:26 Dose: 5 mg Documented by: Atorvastatin Calcium (Atorvastatin Calcium 20 Mg Tablet) 20 mg PO BEDTIME [facility] Diltiazem HCl (Diltiazem Hcl Cd 120 Mg Cap.Er.Deg) 120 mg PO BEDTIME [facility]; Protocol Last Admin: 06/12/21 05:02 Dose: Not Given Documented by: Levofloxacin (Levofloxacin 500 Mg Tablet) 500 mg PO Q24H [facility] Metoprolol Succinate (Metoprolol Succinate Er 100 Mg Tab.Er.24h) 100 mg PO DAILY [facility]; Protocol Last Admin: 06/12/21 08:25 Dose: 100 mg Documented by: Multivitamins/Vitamin C (Multivitamin Tablet) 1 tab PO DAILY [facility] Last Admin: 06/12/21 08:25 Dose: 1 tab Documented by: Omeprazole (Omeprazole 20 Mg Capsule.Dr) 20 mg PO DAILY@0630 [facility] Last Admin: 06/12/21 05:19 Dose: 20 mg Documented by: Pharmacy Consult (Consult Rx Perform Med Rec) 1 each MISCELLANE ONCE PRN PRN Reason: Consult order Ropinirole HCl (Ropinirole Hcl 2 Mg Tablet) 2 mg PO BID [facility] Last Admin: 06/12/21 08:26 Dose: 2 mg Documented by: Tiotropium Murray (Tiotropium [place] 18 Mcg Cap.W.Dev) 1 puff INHALE RDCANDIY [facility] Last Admin: 06/12/21 07:18 Dose: 1 puff Documented by: Home Medications Medication Instructions Recorded Confirmed Last Taken Type albuterol sulfate 2.5 mg INHALATION Q4H PRN 01/28/20 06/11/21 Unknown History albuterol sulfate 90 mcg/actuation 2 puff INHALATION Q6H PRN 01/28/20 06/11/21 Unknown History aerosol inhaler apixaban 5 mg tablet 5 mg PO BID 01/28/20 06/11/21 Unknown History ropinirole 2 mg tablet 2 mg PO BID 01/28/20 06/11/21 Unknown History diltiazem HCl 120 mg capsule,24 1 cap PO QPM 06/11/21 06/11/21 Unknown History hr,extended release pantoprazole 40 mg tablet,delayed 40 mg PO DAILY@0630 06/11/21 06/11/21 Unknown History release tiotropium bromide 2.5 1 spray PO DAILY 06/11/21 06/11/21 Unknown History mcg/actuation mist for inhalation (Spiriva Respimat) vit C 250 mg-vit E 90 mg-zinc 40 1 tab PO BID 06/11/21 06/11/21 Unknown History mg-copper 1 hv-[id number]-[id number] capsule (PreserVision AREDS-2) Physical Exam Vital Signs: Last Vital Signs Temp 97.9 F 06/12/21 08:00 Pulse 97 06/12/21 10:00 Resp 17 06/12/21 10:00 BP 142/73 H 06/12/21 10:00 Pulse Ox 91 L 06/12/21 10:00 BMI result Body Mass Index 22.6 Const General: no acute distress Orientation/consciousness: patient oriented x3 HEENT Head: Yes normocephalic and Yes atraumatic Neck Neck: Yes no JVD Resp Effort & Inspection: able to speak in complete sentences Auscultation: crackles Cardio Jugular venous distension: no JVD Rate: regular rate Rhythm: regular rhythm Heart sounds: S1 normal heart sound present and S2 normal heart sound present GI Auscultation: normal bowel sounds Neuro General: patient oriented x3 and no focal motor deficits Extrem General: Yes edema Results Lab Results Result Diagrams: 06/12/21 05:23 06/12/21 09:00 Lab results: Chemistry 06/11/21 06/11/21 06/11/21 11:03 15:07 20:04 Sodium 117 L* 116 L* 115 L* Potassium 5.5 H Carbon Dioxide 31 H BUN 13 Creatinine 0.70 Calcium 8.3 L D 06/11/21 06/12/21 06/12/21 22:33 00:34 03:19 Sodium 116 L* 116 L* 119 L* Potassium 4.6 Carbon Dioxide 26 BUN 12 Creatinine 0.70 Calcium 8.1 L 06/12/21 06/12/21 05:23 09:00 Sodium 122 L 123 L Potassium 4.9 4.8 Carbon Dioxide 27 26 BUN 10 Creatinine 0.66 Calcium 8.3 L Hematology 06/11/21 06/12/21 11:03 05:23 WBC 14.0 H 12.6 H Hgb 12.9 L 12.9 L Plt Count 354 379 Urinalysis 06/11/21 06/11/21 15:04 15:04 Urine Color Cancelled YELLOW Urine Appearance Cancelled CLEAR Urine pH Cancelled 5.5 Ur Specific [employer] Cancelled 1.010 Urine Protein Cancelled TRACE Urine Glucose (UA) Cancelled NEG Urine Ketones Cancelled 15 Urine Blood Cancelled NEG Urine Nitrite Cancelled NEG Ur Leukocyte Esterase Cancelled NEG Assessment and Plan (1) Hyponatremia: Status: Acute Plan #)Hypotonic Hyponatremia: No hx of CHF, liver cirrhosis, nephrotic syndrome. Can assess for urine protein gap to rule out paraproteinemia. -U-Osm pending, Urine sodium show inappropriate loss which likely consistent with ADH secretion however uric acid was normal. -I suspect he has adh present due to underlying infection and his hyponatremia was further exacerbated by poor po intake. -Check urine legionella -Urine studies pending.Uric acid normal. -Check S-Na q 6 hours. -Treat pain/nausea, as these also promote secretion of ADH. -S/P 3% hyperteonic saline with correction from 116--> 122. This is an appropriate 24 hour correction rate. -Agree with switching him to 30 Gm urea bid and limit FW intake to less than 1 L/day. Encourage sips of water only when thirsty. -Can also add boost or ensure for nutritional support and to provide additional solute load. -Goal correction over next 24 hours should be ~ 128 meq/L. Limit correction to 6-8 meq/L in 24 hour period. Procedures Date of Service Date of Service: 06/12/21
[2021-06-12] MEDS: Albuterol Sulfate (0.083%) 2.5 MG/3 ML VIAL.NEB INHALE (11:15)
--- NOTE | 2021-06-12 11:21 | PM.CNPUL ---
History of Present Illness History of Present Illness Consult date: 06/12/21 Requesting physician: Abdi Sloan Reason for consult: COPD and pneumonia Chief complaint: Hyponatremia Narrative: This patient is 81 years old male, admitted yesterday through the emergency room, which chief complaint of marked generalized weakness and shortness of breath on walking. In the ER found to have severe hyponatremia, which is being corrected here in the intensive care unit. In addition he also presented with history of increasing shortness of breath for the last 10 12 days, He did have says cold-like symptoms to start with, but denies fever or chills. He has had mild intermittent cough. Patient has been up to date with COVID vaccination, and he has been staying mostly in the house. This gentleman does have history of chronic obstructive pulmonary disease for the past many years. [place]ime in the remote I have seen him, but he is being cared by his primary care physician, and for COPD has been on Spiriva 1 inhalation daily and albuterol by updraft 2 or 3 times a day as needed. He denies having had any frequent respiratory infections. He has history of multiple medical problems including COPD as noted above, hyperlipidemia, GERD symptoms, peripheral vascular disease, bilateral carotid artery atherosclerosis, history of intermittent alcoholism. He has had rectal carcinoma treated by local surgical resection but did not have any chemo or radiation therapy. He smoked about 1 pack a day for 40 years or so and quit in 1998. Patient has had hypertension and chronic atrial fibrillation and he is on Eliquis for anticoagulation Recently he has had edema of the legs, and he was not on any diuretic therapy. [facility] Past Medical History Medical History (Updated 06/12/21 @ 11:32 by Leonidas Cloud MD) Bilateral carotid artery disease Chronic atrial fibrillation COPD (chronic obstructive pulmonary disease) COPD (chronic obstructive pulmonary disease) with emphysema History of cardiomyopathy History of cardioversion HTN (hypertension) Hyperlipidemia Pneumonia Family History Family History Father Stroke CVD (cardiovascular disease) Mother Colon cancer Diabetes Sister Diabetes COPD (chronic obstructive pulmonary disease) Breast cancer Surgical History Surgical History History of tonsillectomy and adenoidectomy Hx of cardiac cath Hx of colonoscopy Social History Social History Household Members: Spouse Housing: House Do you presently have visiting nurse or other home services: No Patient Tobacco Use Status: Former Tobacco user Quit Date: 2001 Tobacco use type: Cigarette Smoked in Last 30 Days: No Use of substances other than those prescribed or required for medical reasons: No Currently Displaying Signs/Symptoms of Drug Intoxication Withdrawal: No Have you been hit, kicked, punched, or otherwise hurt by someone within the past year? If so, by whom?: No Do you feel safe in your current relationship?: Yes Is there a partner from a previous relationship who is making you feel unsafe now?: No Are you made to feel afraid or neglected: No Advance Directives: Yes Advance Directives Information Provided: Yes Advance Directives on File: No Advance Directives Date on File: 06/11/21 Do you have thoughts of harming others: None Do you have a plan to hurt others: No Plan Recently lost weight without trying: No service: No 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al status: retired [employer] Allergies Allergy/AdvReac Type Severity Reaction Status Date / Time No Known Allergies Allergy Unknown UNKNOWN Verified 06/11/21 10:46 [NO KNOWN ALLERGIES] Active Medications: Current Medications Albuterol Sulfate (Albuterol Sulfate (0.083%) 2.5 Mg/3 Ml Vial.Neb) 2.5 mg INHALE Q4H PRN PRN Reason: Shortness Of Breath Last Admin: 06/12/21 11:15 Dose: 2.5 mg Documented by: Albuterol Sulfate (Albuterol Sulfate 90 Mcg 8 Gm Inhaler) 2 puff INHALE Q6H PRN PRN Reason: Shortness Of Breath Or Wheezing Apixaban (Apixaban 5 Mg Tablet) 5 mg PO BID [facility] Last Admin: 06/12/21 08:26 Dose: 5 mg Documented by: Atorvastatin Calcium (Atorvastatin Calcium 20 Mg Tablet) 20 mg PO BEDTIME [facility] Diltiazem HCl (Diltiazem Hcl Cd 120 Mg Cap.Er.Deg) 120 mg PO BEDTIME [facility]; Protocol Last Admin: 06/12/21 05:02 Dose: Not Given Documented by: Levofloxacin (Levofloxacin 500 Mg Tablet) 500 mg PO Q24H [facility] Metoprolol Succinate (Metoprolol Succinate Er 100 Mg Tab.Er.24h) 100 mg PO DAILY [facility]; Protocol Last Admin: 06/12/21 08:25 Dose: 100 mg Documented by: Multivitamins/Vitamin C (Multivitamin Tablet) 1 tab PO DAILY [facility] Last Admin: 06/12/21 08:25 Dose: 1 tab Documented by: Omeprazole (Omeprazole 20 Mg Capsule.) 20 mg PO DAILY@0630 [facility] Last Admin: 06/12/21 05:19 Dose: 20 mg Documented by: Pharmacy Consult (Consult Rx Perform Med Rec) 1 each MISCELLANE ONCE PRN PRN Reason: Consult order Ropinirole HCl (Ropinirole Hcl 2 Mg Tablet) 2 mg PO BID [facility] Last Admin: 06/12/21 08:26 Dose: 2 mg Documented by: Tiotropium [place] (Tiotropium [place] 18 Mcg Cap.W.Dev) 1 puff INHALE RDAILY [facility] Last Admin: 06/12/21 07:18 Dose: 1 puff Documented by: Urea (Urea 15 Gm Powder) 30 gm PO DAILY [facility] Urea (Urea 15 Gm Powder) 15 gm PO DAILY@1800 [facility] Home Medications Medication Instructions Recorded Confirmed Last Taken Type albuterol sulfate 2.5 mg INHALATION Q4H PRN 01/28/20 06/11/21 Unknown History albuterol sulfate 90 mcg/actuation 2 puff INHALATION Q6H PRN 01/28/20 06/11/21 Unknown History aerosol inhaler apixaban 5 mg tablet 5 mg PO BID 01/28/20 06/11/21 Unknown History ropinirole 2 mg tablet 2 mg PO BID 01/28/20 06/11/21 Unknown History diltiazem HCl 120 mg capsule,24 1 cap PO QPM 06/11/21 06/11/21 Unknown History hr,extended release pantoprazole 40 mg tablet,delayed 40 mg PO DAILY@0630 06/11/21 06/11/21 Unknown History release tiotropium bromide 2.5 1 spray PO DAILY 06/11/21 06/11/21 Unknown History mcg/actuation mist for inhalation (Spiriva Respimat) vit C 250 mg-vit E 90 mg-zinc 40 1 tab PO BID 06/11/21 06/11/21 Unknown History mg-copper 1 [id number]-tixcar capsule (PreserVision AREDS-2) Physical Exam Vital Signs: Vital Signs: Last Vital Signs Temp 97.9 F 04/22/22 08:00 Pulse 108 H 06/12/21 11:15 Resp 21 H 06/12/21 11:15 BP 147/79 H 06/12/21 11:00 Pulse Ox 92 06/12/21 11:00 BMI result Body Mass Index 22.6 Const: General: comfortable, no acute distress, alert and awake Orientation/consciousness: patient oriented x3 HEENT: Head: Yes normal to inspection General nose exam: No nasal polyps present and No nasal discharge present Face and sinus: Yes sinuses nontender Mouth: oropharynx normal Throat: Yes posterior oropharynx normal Eyes: General: appearance normal, both eyes and all related structures Neck: Neck: Yes normal visual inspection, Yes no lymphadenopathy, Yes trachea midline and Yes no JVD Thyroid: Thyroid normal Chest: Chest palpation & inspection: normal inspection of the chest and no tenderness Resp: Other: Percussion note hyper-resonant, breath sounds are distant, Has coarse crepitations over the left lower lobe, posteriorly and also over the right base. No wheezes are heard. Cardio: Palpation: normal PMI Rate: regular rate Rhythm: abnormal rhythm (Atrial fibrillation) Heart sounds: no gallops and no murmurs Bruits: femoral bruit GI: Palpation (GI): Soft to palpation, nontender, No hepatosplenomegaly present and no masses Auscultation: normal bowel sounds Back/Spine/Pelvis: Thoracic/Lumbar Spine: thoracic and lumbar spine normal to inspection Skin: General skin exam: no rashes or lesions noted Neuro: General: patient oriented x3 and no focal motor deficits Cranial nerves: Yes CN's II-XII intact bilaterally Extrem: General: Yes normal to inspection, Yes no calf tenderness and Yes edema (2 + pitting edema of both legs) Psych: Mental Status: mental status grossly normal Speech and movement: Normal speech and movement present Results Laboratory Findings CBC and BMP: 06/12/21 05:23 06/12/21 09:00 Abnormal lab findings: Abnormal Labs 06/11/21 06/11/21 06/11/21 11:03 11:03 13:20 WBC 14.0 H RBC 4.33 L Hgb 12.9 L Hct 36.8 L MPV 8.9 L Immature Gran % (Auto) 1.8 H Neut % (Auto) 75.0 H Lymph % (Auto) 7.7 L Phillips % (Auto) 15.1 H Lymph # (Auto) 1.1 L Phillips # (Auto) 2.1 H Abs Immat Gran (auto) 0.25 H Absolute Neuts (auto) 10.5 H Sodium 117 L* Potassium 5.5 H Chloride 79 L Carbon Dioxide 31 H Random Glucose Lactic Acid 2.7 H* Calcium 8.3 L D Total Protein 5.9 L Albumin 3.3 L 06/11/21 06/11/21 06/11/21 15:07 20:04 22:33 WBC RBC Hgb Hct MPV Immature Gran % (Auto) Neut % (Auto) Lymph % (Auto) Phillips % (Auto) Lymph # (Auto) Phillips # (Auto) Abs Immat Gran (auto) Absolute Neuts (auto) Sodium 116 L* 115 L* 116 L* Potassium Chloride 82 L Carbon Dioxide Random Glucose 158 H D Lactic Acid Calcium 8.1 L Total Protein Albumin 06/12/21 06/12/21 06/12/21 00:34 03:19 05:23 WBC 12.6 H RBC 4.31 L Hgb 12.9 L Hct 36.2 L MPV 8.5 L Immature Gran % (Auto) 3.2 H Neut % (Auto) 86.1 H Lymph % (Auto) 5.8 L Phillips % (Auto) Lymph # (Auto) 0.7 L Phillips # (Auto) Abs Immat Gran (auto) 0.41 H Absolute Neuts (auto) 10.9 H Sodium 116 L* 119 L* Potassium Chloride Carbon Dioxide Random Glucose Lactic Acid Calcium Total Protein Albumin 06/12/21 06/12/21 05:23 09:00 WBC RBC Hgb Hct MPV Immature Gran % (Auto) Neut % (Auto) Lymph % (Auto) Phillips % (Auto) Lymph # (Auto) Phillips # (Auto) Abs Immat Gran (auto) Absolute Neuts (auto) Sodium 122 L 123 L Potassium Chloride 87 L 87 L Carbon Dioxide Random Glucose 138 H Lactic Acid Calcium 8.3 L Total Protein 6.0 L Albumin 3.2 L Microbiology: Microbiology 06/11/21 15:58 Sputum - Expectorated Gram Stain - Final 06/11/21 15:58 Sputum - Expectorated Sputum Culture - Preliminary Culture in progress. Diagnostic Findings Chest x-ray: report reviewed and image reviewed CT scan - chest: report reviewed and image reviewed Assessment and Plan (1) COPD (chronic obstructive pulmonary disease) with emphysema: Status: Acute (2) Hyponatremia: Status: Acute (3) Pneumonia: Status: Acute Plan This gentleman being treated for ., the etiology of that is not clear at this time, He is responding well to the treatment. There is the clinical evidence of chronic obstructive pulmonary disease predominantly secondary to pulmonary emphysema. At present he has definite infiltrate in the left lower lobe and may and some infiltrate in the right base, consistent with pneumonia. This may be post viral infection. Recc . Correct hyponatremia Treat for pneumonia, he has been started on Levaquin that is fine. O2 supplementation only as needed to keep O2 sat above 90%. Check for CO2 retention, venous blood gas would be fine. Continue Spiriva Respimat 2 inhalation daily, and albuterol updraft Q 4-6 hours p.r.n.. Post discharge he would need complete pulmonary evaluation as outpatient. Thank you for asking me to see this patient Procedures Date of Service Date of Service: 06/12/21
--- NOTE | 2021-06-12 11:26 | P.PNCC_ITS ---
Subjective Subjective Date of Service: 06/12/21 Interval History: Mr. Marsh was admitted to the ICU yesterday for management of severe hyponatremia. The patient is a 81-year-old man with past medical history of PVD with bilateral carotid artery disease and s/p left femoral stent, chronic atrial fibrillation on Eliquis (sees Dr. Morgan), COPD 2? former smoking (doesn?t see a pulmnologist), hypertension, hyperlipidemia, GERD, rectal cancer s/p local excision with no chemo or XRT, alcoholism (last drink was two years ago), and history of influenza pneumonia two years ago.? The patient has had multiple prior episodes of hyponatremia, in 2018, 2019, and 2020.? Lives with his , independent w ADLs.? Moderately active, goes bowling.? Does not usually have AMADOR, is not on home oxygen. MEDS at home include Eliquis, diltiazem and metoprolol. ECHOcardiogram 12/2020 showed normal LV systolic function, normal RV cavity size and function, mildly dilated left atrium, normal right atrium, normal cardiac v alvular Dopplers, normal IVC, normal RV systolic pressure. HISTORY OF PRESENT ILLNESS:? The patient presented ambulatory to the ED yesterday morning for evaluation of increasing shortness of breath, dyspnea on exertion, productive cough with an increased amount of phlegm and congestion for 1 week,?? Additionally has generalized weakness and worsening bilateral lower extremity edema.? Phlegm is a bella color which is normal but is increased in amount.? Has been using inhalers and nebulizer treatments without significant improvement.? Denied any known sick contacts.? Denied fevers, chills, nasal congestion, sore throat, chest pain, nausea, vomiting, abdominal pain, consti pation, diarrhea, dysuria, urinary frequency/ urgency / hesitancy.? Denied any recent falls. In the ED, the patient was afebrile, mildly tachypneic, hypertensive, with a sat of 95% on room air, that decreased to 92% with talking.? On exam he had increased work of breathing with bilateral rhonchi.? Neuro exam was intact.? He had at least 2+ periph edema. Labs in the ED notable for white count of 14, hemoglobin down to 12.9, sodium 117 (was 134 two months ago), BUN/creatinine 13/0.7, serum bicarb 31, potassium 5.5, serum albumin 3.3 (was 4.0 two months ago).? BNP was 99.? Lactate 2.7.? EKG showed atrial fibrillation with right bundle-branch block.? Chest x-ray was notable for marked emphysematous changes; on the lateral radiograph, there is a suggestion of a new infiltrate in the posterior basal segment of the left lower lobe compared to the chest CT of 03/22/2019.? That chest CT shows significant emphysema. The patient was given no fluids.? He was given ceftriaxone, Zithromax, and Solu- Medrol.? The ICU was called and the patient was admitted to the ICU for management of hyponatremia. Exam in the ICU was most notable for extreme AMADOR, just getting off the gurney and into the ICU bed.? SpO2 on room air was 92%.? He had no JVD, chest had diffuse coarse crackles with normal exp phase.? At least 2+ LE edema. ECHOCARDIOGRAM showed normal LV size and fxn, mild increased RV size with normal fxn, normal IVC, and normal RVSP estimate. CTPA last night showed no PE, borderline RV size, borderline main PA size, small left pleural effusion with small area of patchy LLL consolidation.? LE duplex scan was negative for DVT. We changed his abx to Levaquin last night in case this is Legionella.? Mycoplasma titers pending, Legionella urinary Ag pending.? Sodium level had no response to Lasix, so he was started on hypertonic saline. Sodium level this morning is up to 122.? I stopped the hypertonic saline at 9am and started him on urea, plus fluid restriction to 1000cc/day.? This morning he tells me that he feels much better, less coughing, breathing easier.? Legs are still swollen.? He?s fully awake, alert, and oriented.? Heart rate about 100, chronic atrial fibrillation.? Blood pressure about 150/70.? Respiratory rate about 20 on room air with sat 92%.? No work of breathing.? No jugular venous distention sitting in the chair.? Chest is CTA, a dramatic difference compared to yesterday.? His expiratory phase is completely normal, with no wheezing.? Heart tones are very soft.? I heard no murmur or gallops.? He has at least 2+ lower extremity pitting edema. LABORATORY DATA:? Below.? Notably, white count is down to 12.6.? Sodium at 09:00 is up to 123.? Renal indices stable.? Albumin is 3.2. MICROBIOLOGY:? Sutum Gram stain shows 4+ polys, 2+ epithelial cells, 4+ GNR, 4+ GPC, 1+ GNC. IMPRESSION: 1. Underlying COPD.? Looking at his serum bicarb levels, they?ve all been 31 (just above our upper limit of normal) since 2020.? He may be starting to retain CO2.? (He?s not on any diuretic.)? Dr. Cloud has seen the patient and will follow. 2. Underlying atrial fibrillation, on Eliquis.? We?re continuing the Eliquis here. 3. Severe hyponatremia.? Aysmptomatic, so usual management, aiming for limited rise in the serum sodium over 24 hours.? I stopped his hypertonic saline this morning, put him on fluid restriction, and started him on Urea, 30g qAM, 15g qPM.? That should make his serum Na rise 5-10 meq.? If necessary, salt tablets can be added. 4. Severe AMADOR and orthopnea:? Although the chest x-ray and CT show no impre ssive infiltrates, his symptoms are very out of proportion, possibly because he has a small pneumonia on top of severe COPD.? Continue the Levaquin pending the Legionella antigen results. 5. Leg swelling.? Etiology is not entirely clear.? Contributing factors include hyponatremia, vasodilation 2? diltiazem, being sedentary for the last week bec of pneumonia.? Discussed with Dr. Morgan.? Altho his RV was enlarged on this echo, his IVC and RVSP were completely normal, so he doesn?t think the patient has RHF. 6. Elevated lactate.? The patient is not septic, and I don?t think he was significantly dry.? The lactate elevation is probably from his beta agonist nebs.? No need for a repeat. Stable for transfer to [facility] [place].? Will sign out to the hospitalists. Critical Care Time (minutes): 0 Physical Exam Vital Signs: Vital Signs: Last Vital Signs Temp 97.9 F 06/12/21 08:00 Pulse 108 H 06/12/21 11:15 Resp 21 H 06/12/21 11:15 BP 147/79 H 06/12/21 11:00 Pulse Ox 92 06/12/21 11:00 BMI result Body Mass Index 22.6 Objective Data Labs CBC & Chem 7: 06/12/21 05:23 06/12/21 09:00 Labs: Laboratory Results - last 24 hr 06/11/21 06/11/21 06/11/21 10:58 10:58 11:03 WBC 14.0 H RBC 4.33 L Hgb 12.9 L Hct 36.8 L MCV 85.0 MCH 29.8 MCHC 35.1 RDW 11.6 Plt Count 354 MPV 8.9 L Immature Gran % (Auto) 1.8 H Neut % (Auto) 75.0 H Lymph % (Auto) 7.7 L [place] % (Auto) 15.1 H Eos % (Auto) 0.1 Baso % (Auto) 0.3 Lymph # (Auto) 1.1 L [place] # (Auto) 2.1 H Eos # (Auto) 0.0 Baso # (Auto) 0.0 Abs Immat Gran (auto) 0.25 H Absolute Neuts (auto) 10.5 H Absolute Nucleated RBC 0.000 Nucleated RBC % (auto) 0.0 Smear Tech's Comments VERIFIED D-Dimer High Sensitivty Sodium Potassium Chloride Carbon Dioxide Anion Gap BUN Creatinine Estim Creat Clear Calc Estimated GFR Random Glucose Lactic Acid Uric Acid Calcium Total Bilirubin Direct Bilirubin AST ALT Alkaline Phosphatase Troponin I High Sens B-Natriuretic Peptide Total Protein Albumin Urine Color Urine Appearance Urine pH Ur Specific [place] Urine Protein Urine Glucose (UA) Urine Ketones Urine Blood Urine Nitrite Ur Leukocyte Esterase Ur Random Sodium COVID-19 (DWAYNE) Negative COVID-19 Clin Com See Note Influenza Type A (LUIS E) Negative Influenza Type B (LUIS E) Negative Influenza A & B Note See Note 06/11/21 06/11/21 06/11/21 11:03 11:03 13:20 WBC RBC Hgb Hct MCV MCH MCHC RDW Plt Count MPV Immature Gran % (Auto) Neut % (Auto) Lymph % (Auto) [place] % (Auto) Eos % (Auto) Baso % (Auto) Lymph # (Auto) [place] # (Auto) Eos # (Auto) Baso # (Auto) Abs Immat Gran (auto) Absolute Neuts (auto) Absolute Nucleated RBC Nucleated RBC % (auto) Smear Tech's Comments D-Dimer High Sensitivty Sodium 117 L* Potassium 5.5 H Chloride 79 L Carbon Dioxide 31 H Anion Gap 13 BUN 13 Creatinine 0.70 Estim Creat Clear Calc 93.3 Estimated GFR > 60 Random Glucose 105 D Lactic Acid 2.7 H* Uric Acid Calcium 8.3 L D Total Bilirubin 0.9 Direct Bilirubin 0.4 AST 21 D ALT 18 Alkaline Phosphatase 108 Troponin I High Sens < 3.5 B-Natriuretic Peptide 99 Total Protein 5.9 L Albumin 3.3 L Urine Color Urine Appearance Urine pH Ur Specific [place] Urine Protein Urine Glucose (UA) Urine Ketones Urine Blood Urine Nitrite Ur Leukocyte Esterase Ur Random Sodium COVID-19 (DWAYNE) COVID-19 Clin Com Influenza Type A (LUIS E) Influenza Type B (LUIS E) Influenza A & B Note 06/11/21 06/11/21 06/11/21 15:04 15:04 15:07 WBC RBC Hgb Hct MCV MCH MCHC RDW Plt Count MPV Immature Gran % (Auto) Neut % (Auto) Lymph % (Auto) [place] % (Auto) Eos % (Auto) Baso % (Auto) Lymph # (Auto) [place] # (Auto) Eos # (Auto) Baso # (Auto) Abs Immat Gran (auto) Absolute Neuts (auto) Absolute Nucleated RBC Nucleated RBC % (auto) Smear Tech's Comments D-Dimer High Sensitivty Sodium 116 L* Potassium Chloride Carbon Dioxide Anion Gap BUN Creatinine Estim Creat Clear Calc Estimated GFR Random Glucose Lactic Acid Uric Acid Calcium Total Bilirubin Direct Bilirubin AST ALT Alkaline Phosphatase Troponin I High Sens B-Natriuretic Peptide Total Protein Albumin Urine Color Cancelled YELLOW Urine Appearance Cancelled CLEAR Urine pH Cancelled 5.5 Ur Specific [place] Cancelled 1.010 Urine Protein Cancelled TRACE Urine Glucose (UA) Cancelled NEG Urine Ketones Cancelled 15 Urine Blood Cancelled NEG Urine Nitrite Cancelled NEG Ur Leukocyte Esterase Cancelled NEG Ur Random Sodium COVID-19 (DWAYNE) COVID-19 Clin Com Influenza Type A (LUIS E) Influenza Type B (LUIS E) Influenza A & B Note 06/11/21 06/11/21 06/11/21 16:23 20:04 22:33 WBC RBC Hgb Hct MCV MCH MCHC RDW Plt Count MPV Immature Gran % (Auto) Neut % (Auto) Lymph % (Auto) [place] % (Auto) Eos % (Auto) Baso % (Auto) Lymph # (Auto) [place] # (Auto) Eos # (Auto) Baso # (Auto) Abs Immat Gran (auto) Absolute Neuts (auto) Absolute Nucleated RBC Nucleated RBC % (auto) Smear Tech's Comments D-Dimer High Sensitivty Sodium 115 L* 116 L* Potassium 4.6 Chloride 82 L Carbon Dioxide 26 Anion Gap 13 BUN 12 Creatinine 0.70 Estim Creat Clear Calc 93.3 Estimated GFR > 60 Random Glucose 158 H D Lactic Acid Uric Acid 4.4 Calcium 8.1 L Total Bilirubin Direct Bilirubin AST ALT Alkaline Phosphatase Troponin I High Sens B-Natriuretic Peptide Total Protein Albumin Urine Color Urine Appearance Urine pH Ur Specific [place] Urine Protein Urine Glucose (UA) Urine Ketones Urine Blood Urine Nitrite Ur Leukocyte Esterase Ur Random Sodium 34.0 COVID-19 (DWAYNE) COVID-19 Clin Com Influenza Type A (LUIS E) Influenza Type B (LUIS E) Influenza A & B Note 06/11/21 06/12/21 06/12/21 22:33 00:34 03:19 WBC RBC Hgb Hct MCV MCH MCHC RDW Plt Count MPV Immature Gran % (Auto) Neut % (Auto) Lymph % (Auto) [place] % (Auto) Eos % (Auto) Baso % (Auto) Lymph # (Auto) [place] # (Auto) Eos # (Auto) Baso # (Auto) Abs Immat Gran (auto) Absolute Neuts (auto) Absolute Nucleated RBC Nucleated RBC % (auto) Smear Tech's Comments D-Dimer High Sensitivty 380 Sodium 116 L* 119 L* Potassium Chloride Carbon Dioxide Anion Gap BUN Creatinine Estim Creat Clear Calc Estimated GFR Random Glucose Lactic Acid Uric Acid Calcium Total Bilirubin Direct Bilirubin AST ALT Alkaline Phosphatase Troponin I High Sens B-Natriuretic Peptide Total Protein Albumin Urine Color Urine Appearance Urine pH Ur Specific [place] Urine Protein Urine Glucose (UA) Urine Ketones Urine Blood Urine Nitrite Ur Leukocyte Esterase Ur Random Sodium COVID-19 (DWAYNE) COVID-19 Clin Com Influenza Type A (LUIS E) Influenza Type B (LUIS E) Influenza A & B Note 06/12/21 06/12/21 06/12/21 05:23 05:23 09:00 WBC 12.6 H RBC 4.31 L Hgb 12.9 L Hct 36.2 L MCV 84.0 MCH 29.9 MCHC 35.6 RDW 11.8 Plt Count 379 MPV 8.5 L Immature Gran % (Auto) 3.2 H Neut % (Auto) 86.1 H Lymph % (Auto) 5.8 L [place] % (Auto) 4.7 Eos % (Auto) 0.0 Baso % (Auto) 0.2 Lymph # (Auto) 0.7 L [place] # (Auto) 0.6 Eos # (Auto) 0.0 Baso # (Auto) 0.0 Abs Immat Gran (auto) 0.41 H Absolute Neuts (auto) 10.9 H Absolute Nucleated RBC 0.000 Nucleated RBC % (auto) 0.0 Smear Tech's Comments D-Dimer High Sensitivty Sodium 122 L 123 L Potassium 4.9 4.8 Chloride 87 L 87 L Carbon Dioxide 27 26 Anion Gap 13 15 BUN 10 Creatinine 0.66 Estim Creat Clear Calc 97.4 Estimated GFR > 60 Random Glucose 138 H Lactic Acid Uric Acid Calcium 8.3 L Total Bilirubin 0.5 Direct Bilirubin AST 18 ALT 18 Alkaline Phosphatase 104 Troponin I High Sens B-Natriuretic Peptide Total Protein 6.0 L Albumin 3.2 L Urine Color Urine Appearance Urine pH Ur Specific [place] Urine Protein Urine Glucose (UA) Urine Ketones Urine Blood Urine Nitrite Ur Leukocyte Esterase Ur Random Sodium COVID-19 (DWAYNE) COVID-19 Clin Com Influenza Type A (LUIS E) Influenza Type B (LUIS E) Influenza A & B Note Microbiology Microbiology Results: Microbiology 06/11/21 15:58 Sputum - Expectorated Gram Stain - Final 06/11/21 15:58 Sputum - Expectorated Sputum Culture - Preliminary Culture in progress. Quality Stroke Does the patient have a stroke diagnosis?: No VTE Prior VTE?: No VTE Risk Level:: Medical - low VTE Device Contraindication: Treatment Not Indicated VTE Drug Contraindication: Treatment Not Indicated
[2021-06-12] MEDS: dilTIAZem HCL CD 120 MG CAP.ER.DEG PO ×2 (11:42→19:48)
[2021-06-12 15:36] LABS: Sodium 123 mmol/L (135-145)
--- NOTE | 2021-06-12 16:29 | PM.EVENT ---
Event Note Date of Service: 06/12/21 Event Note: We started Mr. Gore on bid Urea as of this morning. At 3pm, Na is still 123. I will add NaCL tablets, 1G tid, starting now. Next sodium level will be drawn at 10pm, then 4am tomorrow.
[2021-06-12] MEDS: Sodium Chloride Tab 1 GM TABLET PO ×2 (17:11→19:48)
[2021-06-12] MEDS: Urea 15 GM POWDER PO (17:12)
[2021-06-12] MEDS: Atorvastatin Calcium 20 MG TABLET PO (19:48)
[2021-06-12 22:18] LABS: Sodium 125 mmol/L (135-145)
[2021-06-13] VITALS (8 sets, daily range): BP systolic 141–173; BP diastolic 71–84; PULSE 88–104; RESP 17–20; TEMP 36.2–37.1; O2SAT 92–98; BMI 23.1
[2021-06-13] MEDS: levoFLOXacin 500 MG TABLET PO (00:24)
[2021-06-13] MEDS: Albuterol Sulfate (0.083%) 2.5 MG/3 ML VIAL.NEB INHALE ×2 (03:43→20:07)
[2021-06-13] MEDS: Omeprazole 20 MG CAPSULE.DR PO (06:25)
[2021-06-13 06:33] LABS: Basophils Absolute Auto 0.1 X10*3/uL (0.0-0.2); Basophils Percent Auto 0.2 % (0-2); Hematocrit 40.4 % (42.0-52.0); Imm Gran Abs Auto 0.96 X10*3/uL (0.00-0.03); Imm Gran Pct Auto 4.5 % (0.0-0.4); Lymphocytes Absolute Auto 1.1 X10*3/uL (1.2-4.9); MANUAL DIFF FLAG SCAN; Mean Corpuscular HGB Conc 34.7 g/dl (31.0-36.0); Mean Corpuscular Hemoglobin 29.8 pg (27.0-33.0); Mean Platelet Volume 8.5 fL (9.4-12.4); Monocytes Absolute Auto 1.9 X10*3/uL (0.1-1.2); Monocytes Percent Auto 8.9 % (2-11); Neutrophils Absolute Auto 17.5 x10*3/uL (2.0-8.3); Neutrophils Percent Auto 81.4 % (45-73); Platelet Count 449 X10*3/uL (160-400); Red Cell Distribution Width 12.2 % (11.0-16.0); SCAN SMEAR FLAG 1; White Blood Count 21.5 X10*3/uL (4.8-10.8)
[2021-06-13 06:36] LABS: Venous Blood Gas Refer to POC result
[2021-06-13 06:37] LABS: VBG Base Excess 5.4 mmol/L; VBG HCO3 30 mmol/L (22-26); VBG pCO2 47 mmHg; VBG pH 7.42 (7.32-7.43); VBG pO2 42 mmHg
[2021-06-13 06:53] LABS: SLIDE REVIEW VERIFIED
[2021-06-13 07:02] LABS: Alanine Aminotransferase 22 U/L (0-40); Albumin Level 3.4 g/dL (3.5-5.0); Alkaline Phosphatase 96 U/L (39-117); Anion Gap 13 (12-20); Aspartate Amino Transferase 19 U/L (5-37); Bilirubin Direct 0.2 mg/dL (0.0-0.5); Bilirubin Total 0.6 mg/dL (0.0-1.0); Blood Urea Nitrogen 32 mg/dL (9-16); Calcium 9.1 mg/dL (8.4-10.2); Carbon Dioxide 29 mmol/L (22-29); Chloride 91 mmol/L (96-108); Creatinine Clr Calc Pharmacy 87.4; Estimated Glomerular Filt Rate > 60; Glucose Random 138 mg/dL (60-115); Phosphorus 2.5 mg/dL (2.7-4.5); Potassium 4.6 mmol/L (3.3-5.1); Sodium 128 mmol/L (135-145); Total Protein 6.2 g/dL (6.5-8.0)
[2021-06-13] MEDS: Apixaban 5 MG TABLET PO ×2 (07:31→20:20)
[2021-06-13] MEDS: Urea 15 GM POWDER 30 GM PO (07:31)
[2021-06-13] MEDS: Sodium Chloride Tab 1 GM TABLET PO ×3 (07:31→20:19)
[2021-06-13] MEDS: Metoprolol Succinate ER 100 MG TAB.ER.24H PO (07:31)
[2021-06-13] MEDS: Multivitamin TABLET 1 TAB PO (07:32)
[2021-06-13] MEDS: dilTIAZem HCL CD 120 MG CAP.ER.DEG PO ×2 (07:32→20:20)
[2021-06-13] MEDS: rOPINIRole HCL 2 MG TABLET PO ×2 (07:32→20:20)
[2021-06-13 07:52] LABS: Osmolality Urine 363 mosm/kg (373-1093)
[2021-06-13] MEDS: Azithromycin 500 MG TABLET PO (12:20)
--- NOTE | 2021-06-13 12:47 | HO.PM.IMPN ---
Subjective Subjective Date of Service: 06/13/21 Interval History: No acute issues overnight. Patient ambulating in the halls without issue Review of Systems Denies chest pain Admits more short of breath this morning Denies nausea vomiting diarrhea Denies fever chills Physical Exam Vital Signs: Vital Signs: Last Vital Signs Temp 97.4 F 06/13/21 11:17 Pulse 88 06/13/21 11:17 Resp 18 06/13/21 11:17 BP 141/71 H 06/13/21 11:17 Pulse Ox 93 06/13/21 11:17 BMI result Body Mass Index 23.1 Const: Other: Wake alert no acute distress speaking full sentences Resp: Other: Diminished throughout with dense crackles left lower lung anderson. Diffuse expiratory wheezes noted Cardio: Other: No S4; positive S1-S2; no S3 murmurs or gallops GI: Other: Soft nontender nondistended with normoactive bowel sounds Extrem: Other: No edema bilaterally Objective Data Active Medications Albuterol Sulfate (Albuterol Sulfate (0.083%) 2.5 Mg/3 Ml Vial.Neb) 2.5 mg INHALE Q4H PRN PRN Reason: Shortness Of Breath Last Admin: 06/13/21 03:43 Dose: 2.5 mg Documented by: BERNARDA Albuterol Sulfate (Albuterol Sulfate 90 Mcg 8 Gm Inhaler) 2 puff INHALE Q6H PRN PRN Reason: Shortness Of Breath Or Wheezing Apixaban (Apixaban 5 Mg Tablet) 5 mg PO BID [facility] Last Admin: 06/13/21 07:31 Dose: 5 mg Documented by: SCOTT Atorvastatin Calcium (Atorvastatin Calcium 20 Mg Tablet) 20 mg PO BEDTIME [facility] Last Admin: 06/12/21 19:48 Dose: 20 mg Documented by: LISA Azithromycin (Azithromycin 500 Mg Tablet) 500 mg PO Q24H [facility] Stop: 06/17/21 12:01 Last Admin: 06/13/21 12:20 Dose: 500 mg Documented by: SCOTT Diltiazem HCl (Diltiazem Hcl Cd 120 Mg Cap.Er.Deg) 120 mg PO BID [facility]; Protocol Last Admin: 06/13/21 07:32 Dose: 120 mg Documented by: SCOTT Levofloxacin (Levofloxacin 500 Mg Tablet) 500 mg PO Q24H [facility] Last Admin: 06/13/21 00:24 Dose: 500 mg Documented by: LISA Metoprolol Succinate (Metoprolol Succinate Er 100 Mg Tab.Er.24h) 100 mg PO DAILY [facility]; Protocol Last Admin: 06/13/21 07:31 Dose: 100 mg Documented by: SCOTT Multivitamins/Vitamin C (Multivitamin Tablet) 1 tab PO DAILY [facility] Last Admin: 06/13/21 07:32 Dose: 1 tab Documented by: SCOTT Omeprazole (Omeprazole 20 Mg Capsule.Dr) 20 mg PO DAILY@0630 [facility] Last Admin: 06/13/21 06:25 Dose: 20 mg Documented by: LISA Pharmacy Consult (Consult Rx Perform Med Rec) 1 each MISCELLANE ONCE PRN PRN Reason: Consult order Ropinirole HCl (Ropinirole Hcl 2 Mg Tablet) 2 mg PO BID [facility] Last Admin: 06/13/21 07:32 Dose: 2 mg Documented by: SCOTT Sodium Chloride (Sodium Chloride Tab 1 Gm Tablet) 1 gm PO TID [facility] Last Admin: 06/13/21 07:31 Dose: 1 gm Documented by: SCOTT Tiotropium [place] (Tiotropium [place] 18 Mcg Cap.W.Dev) 1 puff INHALE RDAILY [facility] Last Admin: 06/13/21 09:44 Dose: 1 puff Documented by: SCOTT Urea (Urea 15 Gm Powder) 30 gm PO DAILY [facility] Last Admin: 06/13/21 07:31 Dose: 30 gm Documented by: SCOTT Urea (Urea 15 Gm Powder) 15 gm PO DAILY@1800 [facility] Last Admin: 06/12/21 17:12 Dose: 15 gm Documented by: GHADA Labs CBC & Chem 7: 06/13/21 06:25 06/13/21 06:25 Labs: Laboratory Results - last 24 hr 06/11/21 06/13/21 06/13/21 16:23 06:25 06:25 MCV 86.0 MCH 29.8 MCHC 34.7 RDW 12.2 Plt Count 449 H MPV 8.5 L Immature Gran % (Auto) 4.5 H Neut % (Auto) 81.4 H Lymph % (Auto) 5.0 L [place] % (Auto) 8.9 Eos % (Auto) 0.0 Baso % (Auto) 0.2 Lymph # (Auto) 1.1 L [place] # (Auto) 1.9 H Eos # (Auto) 0.0 Baso # (Auto) 0.1 Abs Immat Gran (auto) 0.96 H Absolute Neuts (auto) 17.5 H Absolute Nucleated RBC 0.000 Nucleated RBC % (auto) 0.0 Smear Tech's Comments VERIFIED VBG pH VBG pCO2 VBG pO2 VBG HCO3 VBG O2 Saturation VBG Base Excess Anion Gap Cancelled Estim Creat Clear Calc Cancelled Estimated GFR Cancelled Random Glucose Fasting Glucose Cancelled Calcium Cancelled Phosphorus Magnesium Total Bilirubin Cancelled Direct Bilirubin AST Cancelled ALT Cancelled Alkaline Phosphatase Cancelled Total Protein Cancelled Albumin Cancelled Urine Osmolality 363 L 06/13/21 06/13/21 06:25 06:27 MCV MCH MCHC RDW Plt Count MPV Immature Gran % (Auto) Neut % (Auto) Lymph % (Auto) [place] % (Auto) Eos % (Auto) Baso % (Auto) Lymph # (Auto) [place] # (Auto) Eos # (Auto) Baso # (Auto) Abs Immat Gran (auto) Absolute Neuts (auto) Absolute Nucleated RBC Nucleated RBC % (auto) Smear Tech's Comments VBG pH 7.42 VBG pCO2 47 VBG pO2 42 VBG HCO3 30 H VBG O2 Saturation 64.0 VBG Base Excess 5.4 Anion Gap 13 Estim Creat Clear Calc 87.4 Estimated GFR > 60 Random Glucose 138 H Fasting Glucose Calcium 9.1 D Phosphorus 2.5 L Magnesium 2.0 Total Bilirubin 0.6 Direct Bilirubin 0.2 AST 19 ALT 22 Alkaline Phosphatase 96 Total Protein 6.2 L Albumin 3.4 L Urine Osmolality Microbiology Microbiology Results: Microbiology 06/11/21 13:14 Blood Culture - Preliminary Blood - Venous No growth after 24 hours. 06/11/21 13:03 Blood Culture - Preliminary Blood - Venous No growth after 24 hours. Assessment and Plan (1) COPD (chronic obstructive pulmonary disease) with emphysema: Status: Acute (2) Pneumonia: Status: Acute (3) HTN (hypertension): Status: Acute Plan 81-year-old male presents the ER with complaints of worsening shortness of breath beginning 1 week prior to arrival. He also complained of generalized weakness and lower extremity edema. He stated he was not making sputum. Emergency room chest x-ray was suspicious for pneumonia; sodium was 117 treated in ICU. Sodium normalized he was transferred to the floor. Over the past 24 hours patient states he was ambulatory in the hallway without issue; states slightly more short of breath this a.m. 1. Pneumonia -started on Levaquin (suspicion for Legionella). -portable chest x-ray today without significant worsening -azithromycin added for greater atypical coverage -will add pulse dose steroids and continue nebs 2. Hyponatremia (resolved) -continue sodium tabs and urea as ordered -follow renals/divalents daily 3.Chronic Atrial Fibrilation -acceptable rate control; adjust as indicated -continue Eliquis 4.HTN -acceptable control on current therapies -adjust as indicated Eliquis Full code Requires ongoing hospitalization for trending of sodium and treatment of COPD/pneumonia Quality Stroke Does the patient have a stroke diagnosis?: No VTE Prior VTE?: No VTE Risk Level:: Medical - low VTE Device Contraindication: Treatment Not Indicated VTE Drug Contraindication: Treatment Not Indicated
[2021-06-13] MEDS: methylPREDNISolone Sod Succ 125 MG/2 ML VIAL 60 MG IVPUSH ×2 (14:09→18:27)
--- NOTE | 2021-06-13 18:10 | P.PNNP_ITS ---
Subjective Subjective Date of Service: 06/13/21 Interval history: No acute issues overnight. CHart Reviewed. Events noted. Physical Exam Vital Signs: Vital Signs: Last Vital Signs Temp 98.7 F 06/13/21 16:00 Pulse 89 06/13/21 16:00 Resp 18 06/13/21 16:00 BP 149/73 H 06/13/21 16:00 Pulse Ox 98 06/13/21 16:00 BMI result Body Mass Index 23.1 Const: General: comfortable and no acute distress Orientation/consciousness: patient oriented x3 HEENT: Head: Yes normocephalic and Yes atraumatic Neck: Neck: Yes no JVD Resp: Effort & Inspection: normal respiratory effort Auscultation: clear to auscultation bilaterally Cardio: Jugular venous distension: no JVD Rate: regular rate Rhythm: regular rhythm Heart sounds: S1 normal heart sound present and S2 normal heart sound present GI: Auscultation: normal bowel sounds Neuro: General: patient oriented x3 and no focal motor deficits Extrem: General: Yes no clubbing, cyanosis or edema Objective Data Labs CBC & Chem 7: 06/13/21 06:25 06/13/21 06:25 Labs: Laboratory Results - last 24 hr 06/11/21 06/12/21 06/13/21 16:23 21:53 06:25 WBC 21.5 H RBC 4.70 Hgb 14.0 Hct 40.4 L MCV 86.0 MCH 29.8 MCHC 34.7 RDW 12.2 Plt Count 449 H MPV 8.5 L Immature Gran % (Auto) 4.5 H Neut % (Auto) 81.4 H Lymph % (Auto) 5.0 L [place] % (Auto) 8.9 Eos % (Auto) 0.0 Baso % (Auto) 0.2 Lymph # (Auto) 1.1 L [place] # (Auto) 1.9 H Eos # (Auto) 0.0 Baso # (Auto) 0.1 Abs Immat Gran (auto) 0.96 H Absolute Neuts (auto) 17.5 H Absolute Nucleated RBC 0.000 Nucleated RBC % (auto) 0.0 Smear Tech's Comments VERIFIED VBG pH VBG pCO2 VBG pO2 VBG HCO3 VBG O2 Saturation VBG Base Excess Sodium 125 L Potassium Chloride Carbon Dioxide Anion Gap BUN Creatinine Estim Creat Clear Calc Estimated GFR Random Glucose Fasting Glucose Calcium Phosphorus Magnesium Total Bilirubin Direct Bilirubin AST ALT Alkaline Phosphatase Total Protein Albumin Urine Osmolality 363 L 06/13/21 06/13/21 06/13/21 06:25 06:25 06:27 WBC RBC Hgb Hct MCV MCH MCHC RDW Plt Count MPV Immature Gran % (Auto) Neut % (Auto) Lymph % (Auto) [place] % (Auto) Eos % (Auto) Baso % (Auto) Lymph # (Auto) [place] # (Auto) Eos # (Auto) Baso # (Auto) Abs Immat Gran (auto) Absolute Neuts (auto) Absolute Nucleated RBC Nucleated RBC % (auto) Smear Tech's Comments VBG pH 7.42 VBG pCO2 47 VBG pO2 42 VBG HCO3 30 H VBG O2 Saturation 64.0 VBG Base Excess 5.4 Sodium Cancelled 128 L Potassium Cancelled 4.6 Chloride Cancelled 91 L Carbon Dioxide Cancelled 29 Anion Gap Cancelled 13 BUN Cancelled 32 H D Creatinine Cancelled 0.75 Estim Creat Clear Calc Cancelled 87.4 Estimated GFR Cancelled > 60 Random Glucose 138 H Fasting Glucose Cancelled Calcium Cancelled 9.1 D Phosphorus 2.5 L Magnesium 2.0 Total Bilirubin Cancelled 0.6 Direct Bilirubin 0.2 AST Cancelled 19 ALT Cancelled 22 Alkaline Phosphatase Cancelled 96 Total Protein Cancelled 6.2 L Albumin Cancelled 3.4 L Urine Osmolality Microbiology Microbiology Results: Microbiology 06/11/21 13:14 Blood - Venous Blood Culture - Preliminary No growth after 48 hours. 06/11/21 13:03 Blood - Venous Blood Culture - Preliminary No growth after 48 hours. 06/11/21 15:58 Sputum - Expectorated Gram Stain - Final 06/11/21 15:58 Sputum - Expectorated Sputum Culture - Preliminary Culture in progress. Procedures Date of Service Date of Service: 06/13/21 Assessment & Plan Assessment and plan (1) Hyponatremia: Status: Acute Plan #)Hypotonic Hyponatremia: No hx of CHF, liver cirrhosis, nephrotic syndrome. Can assess for urine protein gap to rule out paraproteinemia. -S-Na improving. -S-Na level daily ok. -Continue 15 Gm urea powder for now. Patient reports improvement in eating and knee pain 100% better -Treat pain/nausea, as these also promote secretion of ADH. -Can also add boost or ensure for nutritional support and to provide additional solute load. -will give 10 mg IV lasix x 1 for additional FW excretion and treatment of htn. Time Spent With Patient Time: Total time spent is greater than 50% in coordination of care (as documented) at patient's floor/unit and/or counseling patient: Progress Note: Quality Stroke Does the patient have a stroke diagnosis?: No
[2021-06-13] MEDS: Urea 15 GM POWDER PO (18:27)
[2021-06-13] MEDS: Furosemide 20 MG/2 ML VIAL 10 MG IVPUSH (18:27)
[2021-06-13] MEDS: Atorvastatin Calcium 20 MG TABLET PO (20:20)
[2021-06-14] VITALS (9 sets, daily range): BP systolic 148–167; BP diastolic 60–91; PULSE 91–109; RESP 16–20; TEMP 36.1–37.1; O2SAT 92–99; BMI 22.7
[2021-06-14] MEDS: levoFLOXacin 500 MG TABLET PO ×2 (01:03→22:44)
[2021-06-14] MEDS: methylPREDNISolone Sod Succ 125 MG/2 ML VIAL 60 MG IVPUSH ×5 (01:03→23:53)
[2021-06-14] MEDS: Omeprazole 20 MG CAPSULE.DR PO (05:59)
[2021-06-14 07:30] LABS: Hematocrit 40.5 % (42.0-52.0); Hemoglobin 13.7 g/dl (14.0-18.0); Mean Corpuscular HGB Conc 33.8 g/dl (31.0-36.0); Mean Corpuscular Hemoglobin 29.8 pg (27.0-33.0); Mean Platelet Volume 8.6 fL (9.4-12.4); Platelet Count 563 X10*3/uL (160-400); Red Cell Distribution Width 12.4 % (11.0-16.0); White Blood Count 13.7 X10*3/uL (4.8-10.8)
[2021-06-14 08:04] LABS: Band Neutrophils Percent 3 % (3-5); Lymphocytes Absolute Manual 0.3 X10*3/uL (1.2-4.9); Lymphocytes Percent Manual 2 % (20-40); Metamyelocytes Absolute 0.3 X10*3/uL; Metamyelocytes Percent 2 %; Monocytes Absolute Manual 0.7 X10*3/uL (0.1-1.2); Monocytes Percent Manual 5 % (2-11); Neutrophils Absolute Manual 12.5 X10*3/uL (2.0-8.3); Neutrophils Percent Manual 88 % (45-73)
[2021-06-14 08:05] LABS: Platelet Estimate INCREASED (NORMAL); Platelet Morphology Comment NORMAL; RBC Morphology NORMAL
[2021-06-14 08:25] LABS: Alanine Aminotransferase 29 U/L (0-40); Albumin Level 3.6 g/dL (3.5-5.0); Alkaline Phosphatase 97 U/L (39-117); Anion Gap 15 (12-20); Aspartate Amino Transferase 17 U/L (5-37); Bilirubin Total 0.4 mg/dL (0.0-1.0); Blood Urea Nitrogen 40 mg/dL (9-16); Calcium 9.4 mg/dL (8.4-10.2); Carbon Dioxide 31 mmol/L (22-29); Chloride 92 mmol/L (96-108); Creatinine Clr Calc Pharmacy 79.5; Estimated Glomerular Filt Rate > 60; Glucose Fasting 135 mg/dL (60-99); Potassium 5.1 mmol/L (3.3-5.1); Sodium 133 mmol/L (135-145); Total Protein 6.5 g/dL (6.5-8.0)
[2021-06-14] MEDS: Urea 15 GM POWDER 30 GM PO (08:35)
[2021-06-14] MEDS: Multivitamin TABLET 1 TAB PO (08:35)
[2021-06-14] MEDS: Metoprolol Succinate ER 100 MG TAB.ER.24H PO (08:35)
[2021-06-14] MEDS: dilTIAZem HCL CD 120 MG CAP.ER.DEG PO ×2 (08:35→20:39)
[2021-06-14] MEDS: rOPINIRole HCL 2 MG TABLET PO ×2 (08:35→20:39)
[2021-06-14] MEDS: Sodium Chloride Tab 1 GM TABLET PO ×3 (08:35→20:39)
[2021-06-14] MEDS: Apixaban 5 MG TABLET PO ×2 (08:35→20:39)
[2021-06-14] MEDS: Albuterol Sulfate (0.083%) 2.5 MG/3 ML VIAL.NEB INHALE (12:20)
[2021-06-14] MEDS: Azithromycin 500 MG TABLET PO (12:20)
--- NOTE | 2021-06-14 15:04 | P.PNIM_ITS ---
Subjective Subjective Date of Service: 06/14/21 Interval History: No acute issues overnight. Patient ambulating in the halls without issue Review of Systems Denies chest pain Admits more short of breath this morning Denies nausea vomiting diarrhea Denies fever chills Physical Exam Vital Signs: Vital Signs: Last Vital Signs Temp 97.6 F 06/14/21 11:59 Pulse 106 H 06/14/21 11:59 Resp 16 06/14/21 11:59 BP 148/60 H 06/14/21 11:59 Pulse Ox 92 06/14/21 11:59 BMI result Body Mass Index 22.7 Const: Other: Wake alert no acute distress speaking full sentences Resp: Other: Diminished throughout with dense crackles left lower lung anderson. Diffuse expiratory wheezes noted Cardio: Other: No S4; positive S1-S2; no S3 murmurs or gallops GI: Other: Soft nontender nondistended with normoactive bowel sounds Extrem: Other: No edema bilaterally Objective Data Active Medications Albuterol Sulfate (Albuterol Sulfate (0.083%) 2.5 Mg/3 Ml Vial.Neb) 2.5 mg INH MYKEL Q4H PRN PRN Reason: Shortness Of Breath Last Admin: 06/14/21 12:20 Dose: 2.5 mg Documented by: KIMBERLYN Albuterol Sulfate (Albuterol Sulfate 90 Mcg 8 Gm Inhaler) 2 puff INHALE Q6H PRN PRN Reason: Shortness Of Breath Or Wheezing Albuterol/Ipratropium (Albuterol/Iprat 2.5/0.5mg 3 Ml Ampul.Neb) 3 ml INHALE RQ4H WHILE AWAKE [facility] Apixaban (Apixaban 5 Mg Tablet) 5 mg PO BID [facility] Last Admin: 06/14/21 08:35 Dose: 5 mg Documented by: KIMBERLYN Atorvastatin Calcium (Atorvastatin Calcium 20 Mg Tablet) 20 mg PO BEDTIME [facility] Last Admin: 06/13/21 20:20 Dose: 20 mg Documented by: NARA Azithromycin (Azithromycin 500 Mg Tablet) 500 mg PO Q24H [facility] Stop: 06/17/21 12:01 Last Admin: 06/14/21 12:20 Dose: 500 mg Documented by: KIMBERLYN Diltiazem HCl (Diltiazem Hcl Cd 120 Mg Cap.Er.Deg) 120 mg PO BID [facility]; Protocol Last Admin: 06/14/21 08:35 Dose: 120 mg Documented by: KIMBERLYN Guaifenesin (Guaifenesin [place] 600 Mg Tab.Er.12h) 600 mg PO BID PRN PRN Reason: Cough Levofloxacin (Levofloxacin 500 Mg Tablet) 500 mg PO Q24H [facility] Last Admin: 06/14/21 01:03 Dose: 500 mg Documented by: NARA Methylprednisolone Sodium Succinate (Methylprednisolone Sod Succ 125 Mg/2 Ml Vial) 60 mg IVPUSH Q6H [facility] Last Admin: 06/14/21 12:22 Dose: 60 mg Documented by: KIMBERLYN Metoprolol Succinate (Metoprolol Succinate Er 100 Mg Tab.Er.24h) 100 mg PO DAILY [facility]; Protocol Last Admin: 06/14/21 08:35 Dose: 100 mg Documented by: KIMBERLYN Multivitamins/Vitamin C (Multivitamin Tablet) 1 tab PO DAILY [facility] Last Admin: 06/14/21 08:35 Dose: 1 tab Documented by: KIMBERLYN Omeprazole (Omeprazole 20 Mg Capsule.Dr) 20 mg PO DAILY@0630 [facility] Last Admin: 06/14/21 05:59 Dose: 20 mg Documented by: NARA Pharmacy Consult (Consult Rx Perform Med Rec) 1 each MISCELLANE ONCE PRN PRN Reason: Consult order Ropinirole HCl (Ropinirole Hcl 2 Mg Tablet) 2 mg PO BID [facility] Last Admin: 06/14/21 08:35 Dose: 2 mg Documented by: KIMBERLYN Sodium Chloride (Sodium Chloride Tab 1 Gm Tablet) 1 gm PO TID [facility] Last Admin: 06/14/21 08:35 Dose: 1 gm Documented by: KIMBERLYN Tiotropium [place] (Tiotropium [place] 18 Mcg Cap.W.Dev) 1 puff INHALE RDAILY [facility] Last Admin: 06/14/21 07:24 Dose: 1 puff Documented by: KARUNA Urea (Urea 15 Gm Powder) 30 gm PO DAILY [facility] Last Admin: 06/14/21 08:35 Dose: 30 gm Documented by: KIMBERLYN Urea (Urea 15 Gm Powder) 15 gm PO DAILY@1800 [facility] Last Admin: 06/13/21 18:27 Dose: 15 gm Documented by: RICCARDO Labs CBC & Chem 7: 06/14/21 06:44 06/14/21 06:44 Labs: Laboratory Results - last 24 hr 06/14/21 06/14/21 06:44 06:44 MCV 88.0 MCH 29.8 MCHC 33.8 RDW 12.4 Plt Count 563 H D MPV 8.6 L Immature Gran % (Auto) Cancelled Neut % (Auto) Cancelled Lymph % (Auto) Cancelled [place] % (Auto) Cancelled Eos % (Auto) Cancelled Baso % (Auto) Cancelled Lymph # (Auto) Cancelled [place] # (Auto) Cancelled Eos # (Auto) Cancelled Baso # (Auto) Cancelled Abs Immat Gran (auto) Cancelled Absolute Neuts (auto) Cancelled Absolute Nucleated RBC 0.000 Nucleated RBC % (auto) 0.0 Neutrophils % (Manual) 88 H Band Neutrophils % 3 Lymphocytes % (Manual) 2 L Monocytes % (Manual) 5 Metamyelocytes % 2 Abs Neuts (Manual) 12.5 H Lymphocytes # (Manual) 0.3 L Monocytes # (Manual) 0.7 Metamyelocytes # 0.3 Platelet Estimate INCREASED Plt Morphology Comment NORMAL RBC Morphology NORMAL Anion Gap 15 Estim Creat Clear Calc 79.5 Estimated GFR > 60 Fasting Glucose 135 H Calcium 9.4 Total Bilirubin 0.4 AST 17 ALT 29 Alkaline Phosphatase 97 Total Protein 6.5 Albumin 3.6 Microbiology Microbiology Results: Microbiology 06/11/21 13:14 Blood Culture - Preliminary Blood - Venous No growth after 48 hours. 06/11/21 13:03 Blood Culture - Preliminary Blood - Venous No growth after 48 hours. 06/11/21 15:58 Gram Stain - Final Sputum - Expectorated Sputum Culture - Preliminary Culture in progress. Assessment and Plan (1) Pneumonia: Status: Acute (2) COPD (chronic obstructive pulmonary disease) with emphysema: Status: Acute (3) HTN (hypertension): Status: Acute (4) Chronic atrial fibrillation: Status: Acute Plan 81-year-old male presents the ER with complaints of worsening shortness of breath beginning 1 week prior to arrival. He also complained of generalized weakness and lower extremity edema. He stated he was not making sputum. Emergency room chest x-ray was suspicious for pneumonia; sodium was 117 treated in ICU. Sodium normalized he was transferred to the floor. Over the past 24 hours patient states he was ambulatory in the hallway without issue; states slightly more short of breath this a.m. 1. Pneumonia -WBC improved with addition of azithromycin -will schedule DuoNebs -good response to steroids -add Mucinex -pulmonary consult in a.m. 2. Hyponatremia (resolved) -continue sodium tabs and urea as ordered -follow renals/divalents daily 3.Chronic Atrial Fibrilation -acceptable rate control; adjust as indicated -continue Eliquis 4.HTN -acceptable control on current therapies -adjust as indicated Eliquis Full code Requires ongoing hospitalization for trending of sodium and treatment of COPD/pneumonia Quality Stroke Does the patient have a stroke diagnosis?: No VTE Prior VTE?: No VTE Risk Level:: Medical - low VTE Device Contraindication: Treatment Not Indicated VTE Drug Contraindication: Treatment Not Indicated
[2021-06-14] MEDS: Albuterol/Iprat 2.5/0.5MG 3 ML AMPUL.NEB INHALE ×2 (15:13→19:35)
--- NOTE | 2021-06-14 15:46 | PM.PNNEP ---
Subjective Subjective Date of Service: 06/14/21 Interval history: No acute issues overnight. Na improving. Physical Exam Vital Signs: Vital Signs: Last Vital Signs Temp 98.7 F 06/14/21 15:17 Pulse 91 06/14/21 15:17 Resp 19 06/14/21 15:17 BP 152/79 H 06/14/21 15:17 Pulse Ox 95 06/14/21 15:17 BMI result Body Mass Index 22.7 Const: General: cooperative, comfortable and no acute distress Orientation/consciousness: patient oriented x3 HEENT: Head: Yes normocephalic and Yes atraumatic Neck: Neck: Yes no JVD Resp: Effort & Inspection: normal respiratory effort Cardio: Jugular venous distension: no JVD Rate: regular rate Rhythm: regular rhythm Heart sounds: S1 normal heart sound present and S2 normal heart sound present GI: Auscultation: normal bowel sounds Neuro: General: patient oriented x3 and no focal motor deficits Extrem: General: Yes no clubbing, cyanosis or edema Objective Data Labs CBC & Chem 7: 06/14/21 06:44 06/14/21 06:44 Labs: Laboratory Results - last 24 hr 06/14/21 06/14/21 06:44 06:44 WBC 13.7 H RBC 4.60 Hgb 13.7 L Hct 40.5 L MCV 88.0 MCH 29.8 MCHC 33.8 RDW 12.4 Plt Count 563 H D MPV 8.6 L Immature Gran % (Auto) Cancelled Neut % (Auto) Cancelled Lymph % (Auto) Cancelled [place] % (Auto) Cancelled Eos % (Auto) Cancelled Baso % (Auto) Cancelled Lymph # (Auto) Cancelled [place] # (Auto) Cancelled Eos # (Auto) Cancelled Baso # (Auto) Cancelled Abs Immat Gran (auto) Cancelled Absolute Neuts (auto) Cancelled Absolute Nucleated RBC 0.000 Nucleated RBC % (auto) 0.0 Neutrophils % (Manual) 88 H Band Neutrophils % 3 Lymphocytes % (Manual) 2 L Monocytes % (Manual) 5 Metamyelocytes % 2 Abs Neuts (Manual) 12.5 H Lymphocytes # (Manual) 0.3 L Monocytes # (Manual) 0.7 Metamyelocytes # 0.3 Platelet Estimate INCREASED Plt Morphology Comment NORMAL RBC Morphology NORMAL Sodium 133 L Potassium 5.1 Chloride 92 L Carbon Dioxide 31 H Anion Gap 15 BUN 40 H Creatinine 0.81 Estim Creat Clear Calc 79.5 Estimated GFR > 60 Fasting Glucose 135 H Calcium 9.4 Total Bilirubin 0.4 AST 17 ALT 29 Alkaline Phosphatase 97 Total Protein 6.5 Albumin 3.6 Microbiology Microbiology Results: Microbiology 06/11/21 15:58 Sputum - Expectorated Gram Stain - Final 06/11/21 15:58 Sputum - Expectorated Sputum Culture - Final Haemophilus influenzae 06/11/21 13:14 Blood - Venous Blood Culture - Preliminary No growth after 48 hours. 06/11/21 13:03 Blood - Venous Blood Culture - Preliminary No growth after 48 hours. Procedures Date of Service Date of Service: 06/14/21 Assessment & Plan Assessment and plan (1) Hyponatremia: Status: Acute Plan #)Hypotonic Hyponatremia: No hx of CHF, liver cirrhosis, nephrotic syndrome. Can assess for urine protein gap to rule out paraproteinemia. -S-Na improving. -S-Na level daily ok. -Can dc urea salt tabs and monitor. Noted hypertension -Treat pain/nausea, as these also promote secretion of ADH. -Responded well to 10 mg IV lasix with noted FW excretion. -S-Na has improved further. -We can relax fluid restriction and monitor. -Encourage supplementation with boost or ensure daily. Time Spent With Patient Time: Total time spent is greater than 50% in coordination of care (as documented) at patient's floor/unit and/or counseling patient: Progress Note: Quality Stroke Does the patient have a stroke diagnosis?: No
[2021-06-14] MEDS: Urea 15 GM POWDER PO (18:12)
[2021-06-14] MEDS: Atorvastatin Calcium 20 MG TABLET PO (20:39)
[2021-06-15] MEDS: traZODone HCL 25 MG HALFTAB PO (02:17)
[2021-06-15 03:35] VITALS: BP 159/69; PULSE 98; RESP 18; TEMP 36; O2SAT 99
[2021-06-15 06:00] VITALS: BMI 23.0
[2021-06-15] MEDS: Omeprazole 20 MG CAPSULE.DR PO (06:09)
[2021-06-15] MEDS: methylPREDNISolone Sod Succ 125 MG/2 ML VIAL 60 MG IVPUSH ×2 (06:13→12:52)
[2021-06-15 06:37] LABS: Hematocrit 40.8 % (42.0-52.0); Hemoglobin 13.5 g/dl (14.0-18.0); Mean Corpuscular HGB Conc 33.1 g/dl (31.0-36.0); Mean Corpuscular Hemoglobin 29.1 pg (27.0-33.0); Mean Corpuscular Volume 87.9 fL (80.0-98.0); Mean Platelet Volume 8.2 fL (9.4-12.4); Platelet Count 523 X10*3/uL (160-400); Red Blood Count 4.64 X10*6/uL (4.60-5.80); Red Cell Distribution Width 12.6 % (11.0-16.0); White Blood Count 15.8 X10*3/uL (4.8-10.8)
[2021-06-15 06:55] LABS: Alanine Aminotransferase 26 U/L (0-40); Albumin Level 3.7 g/dL (3.5-5.0); Alkaline Phosphatase 87 U/L (39-117); Anion Gap 15 (12-20); Aspartate Amino Transferase 15 U/L (5-37); Bilirubin Total 0.5 mg/dL (0.0-1.0); Blood Urea Nitrogen 41 mg/dL (9-16); Calcium 9.4 mg/dL (8.4-10.2); Carbon Dioxide 30 mmol/L (22-29); Chloride 97 mmol/L (96-108); Creatinine Clr Calc Pharmacy 79.6; Estimated Glomerular Filt Rate > 60; Glucose Fasting 152 mg/dL (60-99); Potassium 4.7 mmol/L (3.3-5.1); Sodium 137 mmol/L (135-145); Total Protein 6.5 g/dL (6.5-8.0)
[2021-06-15 07:11] VITALS: BP 140/62; PULSE 110; RESP 18; TEMP 35.9; O2SAT 93
[2021-06-15] MEDS: Albuterol/Iprat 2.5/0.5MG 3 ML AMPUL.NEB INHALE ×2 (07:21→11:33)
[2021-06-15 07:23] VITALS: PULSE 78; RESP 16; O2SAT 97
[2021-06-15 08:09] LABS: Band Neutrophils Percent 1 % (3-5); Lymphocytes Absolute Manual 0.6 X10*3/uL (1.2-4.9); Lymphocytes Percent Manual 4 % (20-40); Metamyelocytes Absolute 0.2 X10*3/uL; Metamyelocytes Percent 1 %; Monocytes Absolute Manual 0.2 X10*3/uL (0.1-1.2); Monocytes Percent Manual 1 % (2-11); Myelocytes Absolute 0.2 X10*/uL; Myelocytes Percent 1 %; Neutrophils Absolute Manual 14.7 X10*3/uL (2.0-8.3); Neutrophils Percent Manual 92 % (45-73); Platelet Estimate INCREASED (NORMAL); Platelet Morphology Comment NORMAL; RBC Morphology NORMAL
[2021-06-15] MEDS: Multivitamin TABLET 1 TAB PO (09:09)
[2021-06-15] MEDS: rOPINIRole HCL 2 MG TABLET PO (09:09)
[2021-06-15] MEDS: dilTIAZem HCL CD 120 MG CAP.ER.DEG PO (09:09)
[2021-06-15] MEDS: Apixaban 5 MG TABLET PO (09:10)
[2021-06-15] MEDS: Metoprolol Succinate ER 100 MG TAB.ER.24H PO (09:10)
--- NOTE | 2021-06-15 10:40 | P.DS_ITS ---
DS: Providers Provider Date of Service: 06/15/21 Date of admission: 06/11/21 12:51 Date of discharge: 06/15/21 Primary care physician: Vicente Cifuentes MD Consults: 06/12/21 09:24 Consult to Pulmonology Routine Consulting Provider: Leonidas Cloud Reason for consultation: Severe emphysema Has provider been notified: No 06/12/21 10:08 Consult to Nephrology Routine Consulting Provider: Ricardo Santoyo Reason for consultation: hyponatrem Has provider been notified: Yes 06/15/21 08:18 Consult to Pulmonology Routine Consulting Provider: Jayy Genao Reason for consultation: copd Has provider been notified: No DS: Diagnosis Discharge Diagnosis (1) Hyponatremia: Status: Acute DS: Summary Hospital Course Hospital Course: The patient presented ambulatory to the ED about 11am for evaluation of increasing shortness of breath, dyspnea on exertion, productive cough with an increased amount of phlegm and congestion for 1 week,?? Additionally has generalized weakness and worsening bilateral lower extremity edema.? Phlegm is a bella color which is normal but is increased in amount.? Does not use home O2.? Has been using inhalers and nebulizer treatments without significant improvement.? Denied any known sick contacts.? Denied fevers, chills, nasal congestion, sore throat, chest pain, nausea, vomiting, abdominal pain, constipation, diarrhea, dysuria, urinary frequency/ urgency / hesitancy.? Denied any recent falls.? Reported hospitalization two years ago for pneumonia. In the ED, the patient was afebrile, mildly tachypneic, hypertensive, with a sat of 95% on room air, that decreased to 92% with talking.? On exam he had increased work of breathing with bilateral rhonchi.? Neuro exam was intact.? He had at least 2+ periph edema. Labs in the ED notable for white count of 14, hemoglobin down to 12.9, sodium 117 (was 134 two months ago), BUN/creatinine 13/0.7, serum bicarb 31, potassium 5.5, serum albumin 3.3 (was 4.0 two months ago).? BNP was 99.? Lactate 2.7.? EKG showed atrial fibrillation with right bundle-branch block.? Chest x-ray was notable for marked emphysematous changes on the lateral radiograph, there is a suggestion of a new infiltrate in the posterior basal segment of the left lower lobe compared to the chest CT of 03/22/2019. The patient was given no fluids.? He was given ceftriaxone, Zithromax, and Solu- Medrol. ?The ICU was called and the patient was admitted to the ICU for management of hyponatremia. Hopsital Course Patient sodium normalized and was transferred out of ICU. Seen by Renal for hyponatremia; felt to have increased ADH production secondary underlying infection which was exacerbated by poor p.o. intake. He initially was given 3% saline and then switch to 30 g urea b.i.d.. Free water was limited to 1 L per day. Sodium chloride tabs were added and his sodium normalized and remained normal for the remainder of his admission Seen by pulmonology for his pneumonia: Was treated with Levaquin initially for thoughts of Legionella possibly causing hyponatremia. Azithromycin at was added for better atypical coverage. Patient completed course of azithromycin will be discharged home to complete a course of oral Levaquin. Dr. Genao will follow him in the office for treatment of his COPD. He is sent home on DuoNeb solution has nebulizer and equipment at home. On the day of discharge he is medically stable for same. He will follow up with pulmonology and his PCP Time Spent with Patient Time attestation: Total time spent providing and/or coordinating discharge services: Discharge coordination time: Greater than 30 minutes Quality: Safe Use of Opioids Does Pt have an Active Cancer Diagnosis on the Problem List?: No Quality: Stroke Does the patient have a stroke diagnosis?: No Physical Exam Vital Signs: Vital Signs: Last Vital Signs Temp 96.6 F L 06/15/21 07:11 Pulse 78 06/15/21 07:23 Resp 16 06/15/21 07:23 BP 140/62 H 06/15/21 07:11 Pulse Ox 93 06/15/21 07:11 BMI result Body Mass Index 23.0 DS: Data Data Completed and Pending Labs on day of discharge: Laboratory Results - last 24 hr 06/15/21 06/15/21 06:27 06:27 WBC 15.8 H RBC 4.64 Hgb 13.5 L Hct 40.8 L MCV 87.9 MCH 29.1 MCHC 33.1 RDW 12.6 Plt Count 523 H MPV 8.2 L Immature Gran % (Auto) Cancelled Neut % (Auto) Cancelled Lymph % (Auto) Cancelled Branch % (Auto) Cancelled Eos % (Auto) Cancelled Baso % (Auto) Cancelled Lymph # (Auto) Cancelled Branch # (Auto) Cancelled Eos # (Auto) Cancelled Baso # (Auto) Cancelled Abs Immat Gran (auto) Cancelled Absolute Neuts (auto) Cancelled Absolute Nucleated RBC 0.000 Nucleated RBC % (auto) 0.0 Neutrophils % (Manual) 92 H Band Neutrophils % 1 L Lymphocytes % (Manual) 4 L Monocytes % (Manual) 1 L Metamyelocytes % 1 Myelocytes % 1 Abs Neuts (Manual) 14.7 H Lymphocytes # (Manual) 0.6 L Monocytes # (Manual) 0.2 Metamyelocytes # 0.2 Myelocytes # 0.2 Platelet Estimate INCREASED Plt Morphology Comment NORMAL RBC Morphology NORMAL Sodium 137 Potassium 4.7 Chloride 97 Carbon Dioxide 30 H Anion Gap 15 BUN 41 H Creatinine 0.82 Estim Creat Clear Calc 79.6 Estimated GFR > 60 Fasting Glucose 152 H Calcium 9.4 Total Bilirubin 0.5 AST 15 ALT 26 Alkaline Phosphatase 87 Total Protein 6.5 Albumin 3.7 Preliminary micro results at discharge 06/11/21 13:14 Blood Culture - Preliminary Blood - Venous No growth after 48 hours. 06/11/21 13:03 Blood Culture - Preliminary Blood - Venous No growth after 48 hours. Discharge Plan Discharge Patient Disposition: Home Health Service Discharge Diagnosis: Pneumonia Referrals: Vicente Cifuentes MD [Primary Care Provider] - 1 Week Discharge Medications: New ipratropium-albuterol 0.5 mg-3 mg(2.5 mg base)/3 mL Solution For Nebulization 3 ml inhalation RQ4H WHILE AWAKE Qty: 270 0RF levofloxacin 500 mg Tablet 500 mg PO Q24H Qty: 5 0RF sodium chloride 1 gram tablet 1,000 mg PO TID Qty: 90 0RF urea 15 gram powder in packet 1 packet PO BID Qty: 60 0RF prednisone 10 mg tablet See Rx Instructions .Route .COMPLEX Qty: 45 0RF Rx Instructions: 10 mg orally; 5 tabs p.o. daily x3 days; 4 tabs p.o. daily x3 days; 3 tabs daily x3 days; 2 tabs daily x3 days; 1 tab daily x3 days Continued diltiazem HCl 240 mg capsule,extended release 24hr 240 mg PO DAILY 90 Days Qty: 90 2RF atorvastatin 20 mg tablet 20 mg PO DAILY 90 Days Qty: 90 3RF metoprolol succinate 100 mg tablet extended release 24 hr 100 mg PO DAILY 90 Days Qty: 90 3RF Spiriva Respimat 2.5 mcg/actuation mist 1 spray PO DAILY 0RF PreserVision AREDS-2 250-90-40-1 mg Capsule 1 tab PO BID 0RF pantoprazole 40 mg tablet,delayed release (DR/EC) 40 mg PO DAILY@0630 0RF diltiazem HCl 120 mg capsule,extended release 24 hr 1 cap PO QPM 0RF ropinirole 2 mg tablet 2 mg PO BID 0RF apixaban 5 mg tablet 5 mg PO BID 0RF albuterol sulfate 2.5 mg /3 mL (0.083 %) solution for nebulization 2.5 mg inhalation Q4H PRN (Reason: Shortness Of Breath) 0RF albuterol sulfate 90 mcg/actuation HFA aerosol inhaler 2 puff inhalation Q6H PRN (Reason: Shortness Of Breath Or Wheezing) 0RF Discharge Orders: Discharge Order (Routine); Ordered 06/15/21 Ordered By: David Rodgers Diet: advance to usual diet Activity on Discharge: As tolerated Stand Alone Forms: Patient Portal Discharge page Care Plan Goals: Complete course of Levaquin and prednisone as ordered Health Concerns: Use DuoNeb solution 3 times a day in your nebulizer Plan of Treatment: Follow-up with Dr. Genao; his office will call you with an appointment. Follow-up with Dr. Cifuentes in 1-2 weeks Assessment: See discharge summary
[2021-06-15] MEDS: Urea 15 GM POWDER 30 GM PO (10:45)
[2021-06-15] MEDS: Sodium Chloride Tab 1 GM TABLET PO (10:45)
[2021-06-15 11:19] VITALS: BP 157/91; PULSE 109; RESP 19; TEMP 36.3; O2SAT 96
[2021-06-15 11:34] VITALS: PULSE 81; RESP 16; O2SAT 95
[2021-06-15] MEDS: Azithromycin 500 MG TABLET PO (12:52)
[2021-06-16 05:26] LABS: Legionella Ag Urine Not Detected (Not Detected)
[2021-06-17 14:01] LABS: Mycoplasma Pneumoniae - IgG <=0.90 (<=0.90); Mycoplasma Pneumoniae - IgM 233 U/mL (<770)
--- NOTE | 2021-06-19 08:33 | P.F2F_ITS ---
Service Date Service Date: 06/19/21 Encounter Date of encounter: 06/15/21 Encounter: Hospital Reasons for Services Signs and symptoms assessed: COPD exacerbation secondary to pneumonnia Reason for senior living: medication management and other (monitor respiratory status and response to therapies) Homebound: Leaving the home is medically contraindicated at this time without the asist of a device and/or another person due th the listed conditions above and below. Reason homebound: unsteady gait / fall risk, shortness of breath with minimal effort and shortness of breath at rest Certification: Based on the above findings, I certify that this patient is confined to the home and needs intermittent senior living care, physical therapy and/or speech therapy, or continues to need occupational therapy. The patient is under my care, and I have initiated the establishment of the plan of care. The patient will be followed by a physician who will periodically review the plan of care.
== END 2021-06-15 13:30 | disposition home health service (06) | DRG 640 ==
LOC: HO.ED 11:02 → HO.ICU 13:17 → HO.IMC 06-12 13:54
PROVIDERS: Nurse Practitioner Family; Physician Assistant Medical; Admitting Provider Anesthesiology; Emergency Provider Student in an Organized Health Care Education/Training Program; PCP Internal Medicine; Visit Provider Hospitalist
DX: E87.1 Hypo-osmolality and hyponatremia (principal); J18.9 Pneumonia, unspecified organism; I48.20 Chronic atrial fibrillation, unspecified; E78.5 Hyperlipidemia, unspecified; I10 Essential (primary) hypertension; K21.9 Gastro-esophageal reflux disease without esophagitis; Z85.048 Personal history of other malignant neoplasm of rectum, rectosigmoid junction, and anus; F10.21 Alcohol dependence, in remission; J43.9 Emphysema, unspecified; Z20.822 Contact with and (suspected) exposure to COVID-19; Z87.891 Personal history of nicotine dependence; Z79.01 Long term (current) use of anticoagulants; Z79.899 Other long term (current) drug therapy
CPT/HCPCS: 36415; 71045; 71046; 71275; 80048; 80051; 80053; 80076; 81003; 82803; 83605; 83735; 83880; 83935; 84100; 84295; 84300; 84484; 84550; 85007; 85025; 85027; 85379; 86738; 87040; 87070; 87077; 87185; 87205; 87449; 87502; 87635; 93005; 93308; 93970; 94640; 94644; 96365; 96367; 96375; 99283; 99291; J0456; J0696; J1940; J1956; J2930; J7131; Q9967

== ENCOUNTER 2021-06-29 11:59 | Outpatient (REF) | payer MEDICARE, SELFPAY ==
[2021-06-29 13:58] LABS: MANUAL DIFF FLAG NO
[2021-06-29 14:06] LABS: Basophils Percent Auto 0.2 % (0-2); Eosinophils Percent Auto 0.2 % (0-4); Hematocrit 42.1 % (42.0-52.0); Hemoglobin 13.6 g/dl (14.0-18.0); Imm Gran Pct Auto 0.8 % (0.0-0.4); Lymphocytes Absolute Auto 0.8 X10*3/uL (1.2-4.9); Mean Corpuscular HGB Conc 32.3 g/dl (31.0-36.0); Mean Corpuscular Volume 92.9 fL (80.0-98.0); Mean Platelet Volume 9.7 fL (9.4-12.4); Monocytes Absolute Auto 0.6 X10*3/uL (0.1-1.2); Neutrophils Absolute Auto 11.4 x10*3/uL (2.0-8.3); Neutrophils Percent Auto 87.8 % (45-73); Platelet Count 300 X10*3/uL (160-400); Red Blood Count 4.53 X10*6/uL (4.60-5.80); Red Cell Distribution Width 14.4 % (11.0-16.0); White Blood Count 12.9 X10*3/uL (4.8-10.8)
[2021-06-29 14:21] LABS: Alanine Aminotransferase 23 U/L (0-40); Albumin Level 3.7 g/dL (3.5-5.0); Alkaline Phosphatase 80 U/L (39-117); Anion Gap 12 (12-20); Aspartate Amino Transferase 17 U/L (5-37); Bilirubin Total 0.6 mg/dL (0.0-1.0); Blood Urea Nitrogen 34 mg/dL (9-16); Calcium 9.4 mg/dL (8.4-10.2); Carbon Dioxide 34 mmol/L (22-29); Chloride 94 mmol/L (96-108); Estimated Glomerular Filt Rate > 60; Glucose Random 121 mg/dL (60-115); Potassium 4.8 mmol/L (3.3-5.1); Sodium 135 mmol/L (135-145); Total Protein 5.8 g/dL (6.5-8.0)
== END 2021-06-29 12:00 | disposition home or self-care (01) ==
LOC: HO.HMGCLDS 11:59
PROVIDERS: PCP Internal Medicine; Visit Provider Internal Medicine
DX: J44.9 Chronic obstructive pulmonary disease, unspecified (principal); I48.91 Unspecified atrial fibrillation; E87.1 Hypo-osmolality and hyponatremia
CPT/HCPCS: 36415; 80053; 83735; 85025

== ENCOUNTER 2021-07-06 15:53 | Outpatient (REF) | payer MEDICARE, SELFPAY ==
--- NOTE | ~2021-07-06 | XR_ITS ---
EXAMINATION: XR CHEST CLINICAL INFORMATION: COPD. COMPARISON: Chest radiographs dated 06/13/2021; CTA chest dated 06/11/2021. TECHNIQUE: Frontal and lateral views of the chest were obtained. FINDINGS: The heart, great vessels, pulmonary vasculature and mediastinum are normal. There is biapical pleural and parenchymal scarring, right greater than left. There are benign, calcified course granulomas noted. There is hyperinflation, and bilateral blebs are seen. No new infiltrate, effusion or pneumothorax is seen. There is no acute osseous abnormality. There are degenerative changes of the thoracic spine. XR/XR chest 2V IMPRESSION: 1. No focal infiltrate or congestive heart failure is seen. 2. 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
== END 2021-07-06 15:54 | disposition home or self-care (01) ==
LOC: HO.XRAY 15:53
PROVIDERS: PCP Internal Medicine; Visit Provider Internal Medicine
DX: J44.9 Chronic obstructive pulmonary disease, unspecified (principal); J18.9 Pneumonia, unspecified organism
CPT/HCPCS: 71046; 99212

== ENCOUNTER 2021-07-27 10:56 | Outpatient (REF) | payer MEDICARE, SELFPAY ==
[2021-07-27 14:03] LABS: Alanine Aminotransferase 10 U/L (0-40); Albumin Level 3.9 g/dL (3.5-5.0); Alkaline Phosphatase 90 U/L (39-117); Anion Gap 12 (12-20); Aspartate Amino Transferase 9 U/L (5-37); Bilirubin Total 0.4 mg/dL (0.0-1.0); Blood Urea Nitrogen 14 mg/dL (9-16); Carbon Dioxide 31 mmol/L (22-29); Chloride 98 mmol/L (96-108); Estimated Glomerular Filt Rate > 60; Glucose Random 95 mg/dL (60-115); Magnesium 1.9 mg/dL (1.6-2.6); Potassium 5.3 mmol/L (3.3-5.1); Sodium 136 mmol/L (135-145); Total Protein 6.1 g/dL (6.5-8.0)
== END 2021-07-27 10:57 | disposition home or self-care (01) ==
LOC: HO.HMGCLDS 10:56
PROVIDERS: PCP Internal Medicine; Visit Provider Internal Medicine
DX: J44.9 Chronic obstructive pulmonary disease, unspecified (principal); I48.91 Unspecified atrial fibrillation; G25.81 Restless legs syndrome
CPT/HCPCS: 36415; 80053; 83735

== ENCOUNTER 2021-08-04 08:49 | Outpatient (REF) | payer MEDICARE, SELFPAY ==
--- NOTE | 2021-08-04 16:37 | PFT_ITS ---
FLOWS: FEV1 of 31% of predicted at 0.95 L. FVC of 81% of predicted at 3.43 L. FEV1 to FVC ratio of 0.28. Positive bronchodilator response. LUNG VOLUMES: Total lung capacity 81% of predicted at 5.91 L. Residual volume 111% of predicted at 3.02 L. Slow vital capacity 63% of predicted at 2.88 L. Expiratory reserve volume 104% of predicted at 1.30 L. Diffusion capacity is severely decreased, diffusion capacity adjust to being moderately decreased after correction for alveolar ventilation. IMPRESSION: Very severe obstructive ventilatory defect with positive bronchodilator response. Decreased diffusion capacity suggests emphysema. MD NILTON Pena/MODL / [id number]
== END 2021-08-04 08:50 | disposition home or self-care (01) ==
LOC: HO.RESP 08:49
PROVIDERS: Visit Provider Internal Medicine
DX: J44.9 Chronic obstructive pulmonary disease, unspecified (principal); J18.9 Pneumonia, unspecified organism
CPT/HCPCS: 94060; 94618; 94727; 94729; 99212

== ENCOUNTER → 2021-10-01 08:23 | Outpatient (BNVA) | payer MEDICARE, SELFPAY | PROVIDERS: PCP Internal Medicine; Referring Provider Internal Medicine; Visit Provider Nurse Practitioner | DX: K21.9 Gastro-esophageal reflux disease without esophagitis (principal) | CPT/HCPCS: 99212 ==

== ENCOUNTER 2021-11-03 09:26 | Outpatient (REF) | payer MEDICARE, SELFPAY ==
[2021-11-03 11:31] LABS: MANUAL DIFF FLAG NO
[2021-11-03 11:39] LABS: Basophils Absolute Auto 0.1 X10*3/uL (0.0-0.2); Basophils Percent Auto 0.5 % (0-2); Eosinophils Absolute Auto 0.7 X10*3/uL (0.0-0.4); Eosinophils Percent Auto 6.3 % (0-4); Hematocrit 42.1 % (42.0-52.0); Hemoglobin 13.7 g/dl (14.0-18.0); Imm Gran Abs Auto 0.04 X10*3/uL (0.00-0.03); Imm Gran Pct Auto 0.4 % (0.0-0.4); Lymphocytes Absolute Auto 1.2 X10*3/uL (1.2-4.9); Lymphocytes Percent Auto 10.7 % (20-40); Mean Corpuscular HGB Conc 32.5 g/dl (31.0-36.0); Mean Corpuscular Hemoglobin 29.7 pg (27.0-33.0); Mean Corpuscular Volume 91.3 fL (80.0-98.0); Monocytes Absolute Auto 1.1 X10*3/uL (0.1-1.2); Monocytes Percent Auto 10.1 % (2-11); Neutrophils Absolute Auto 7.9 x10*3/uL (2.0-8.3); Platelet Count 276 X10*3/uL (160-400); Red Blood Count 4.61 X10*6/uL (4.60-5.80); Red Cell Distribution Width 12.8 % (11.0-16.0)
[2021-11-03 12:06] LABS: Alanine Aminotransferase 10 U/L (0-40); Albumin Level 3.9 g/dL (3.5-5.0); Alkaline Phosphatase 120 U/L (39-117); Anion Gap 15 (12-20); Aspartate Amino Transferase 14 U/L (5-37); Bilirubin Total 0.7 mg/dL (0.0-1.0); Blood Urea Nitrogen 12 mg/dL (9-16); Calcium 8.7 mg/dL (8.4-10.2); Carbon Dioxide 28 mmol/L (22-29); Chloride 96 mmol/L (96-108); Cholesterol 125 mg/dL; Estimated Glomerular Filt Rate > 60; Glucose Fasting 109 mg/dL (60-99); HDL Cholesterol 38 mg/dL; LDL Cholesterol Calculated 79 mg/dl; Potassium 4.7 mmol/L (3.3-5.1); Sodium 134 mmol/L (135-145); Total Protein 6.5 g/dL (6.5-8.0); Triglycerides 44 mg/dL
[2021-11-03 12:08] LABS: Prostate Specific Antigen 2.55 ng/mL (<0.05-4.0)
== END 2021-11-03 09:27 | disposition home or self-care (01) ==
LOC: HO.HMGCLDS 09:26
PROVIDERS: PCP Internal Medicine; Visit Provider Internal Medicine
DX: Z12.5 Encounter for screening for malignant neoplasm of prostate (principal); I48.91 Unspecified atrial fibrillation; G25.81 Restless legs syndrome; E78.00 Pure hypercholesterolemia, unspecified; J44.9 Chronic obstructive pulmonary disease, unspecified; N40.0 Benign prostatic hyperplasia without lower urinary tract symptoms; I73.9 Peripheral vascular disease, unspecified
CPT/HCPCS: 36415; 80053; 80061; 84153; 85025

== ENCOUNTER → 2021-11-05 10:32 | Outpatient (BNVA) | payer MEDICARE, SELFPAY | PROVIDERS: PCP Internal Medicine; Visit Provider Internal Medicine | DX: J44.9 Chronic obstructive pulmonary disease, unspecified (principal); J18.9 Pneumonia, unspecified organism | CPT/HCPCS: 99212 ==

== ENCOUNTER → 2022-02-01 10:26 | Outpatient (BNVA) | payer MEDICARE, SELFPAY | PROVIDERS: PCP Internal Medicine; Referring Provider Internal Medicine; Visit Provider Internal Medicine Cardiovascular Disease | DX: I48.20 Chronic atrial fibrillation, unspecified (principal); I65.23 Occlusion and stenosis of bilateral carotid arteries; Z79.01 Long term (current) use of anticoagulants; Z79.899 Other long term (current) drug therapy | CPT/HCPCS: 93005; 99212 ==

== ENCOUNTER 2022-03-08 11:22 | Outpatient (REF) | payer MEDICARE, SELFPAY ==
--- NOTE | ~2022-03-08 | US_ITS ---
EXAMINATION: US EXTRACRANIAL CAROTID DUPLEX, BILATERAL CLINICAL INFORMATION: Carotid artery stenosis COMPARISON: Carotid duplex on 01/05/2021 TECHNIQUE: Real-time ultrasound and Doppler techniques (integrating B-mode 2-D vascular images, Doppler spectral analysis and color-flow Doppler imaging) were utilized to interrogate the extracranial carotid arteries, the vertebral arteries and proximal subclavian arteries bilaterally. The degree of stenosis is determined by criteria similar to NASCET. FINDINGS: Right Side: 1. There is moderate atherosclerotic plaque seen in the bifurcation/proximal ICA region. 2. The common carotid artery PSV proximally is 77 cm/s and distally 67 cm/s. 3. The proximal internal carotid artery velocities are 74 cm/s systolic and 15 cm/s diastolic. 4. The proximal external carotid artery PSV is 139 cm/s. 5. The vertebral artery shows antegrade flow. 6. The subclavian artery waveforms are normal. Left Side: 1. There is moderate atherosclerotic plaque seen in the bifurcation/proximal ICA region. 2. The common carotid artery PSV proximally is 64 cm/s and distally 68 cm/s. 3. The proximal internal carotid artery velocities are 69 cm/s systolic and 15 cm/s diastolic. 4. The proximal external carotid artery PSV is 121 cm/s. 5. The vertebral artery shows antegrade flow. 6. The subclavian artery waveforms are normal. Incidental note is made of arrhythmia. US/US carotid duplex BI IMPRESSION: 1. RIGHT: Minimal, non-hemodynamically significant stenosis of the proximal right internal carotid artery corresponding to a 0-49% stenosis by velocity criteria. 2. LEFT: Minimal, non-hemodynamically significant stenosis of the proximal left internal carotid artery corresponding to a 0-49% stenosis by velocity criteria. 3. There is improvement in the category disease compared to 01/05/2021 by velocity criteria, however the visual evaluation of the plaque at the bilateral bifurcations is unchanged.
== END 2022-03-08 11:23 | disposition home or self-care (01) ==
LOC: HO.US 11:22
PROVIDERS: Absent Provider Internal Medicine; PCP Internal Medicine; Visit Provider Internal Medicine Cardiovascular Disease
DX: I65.21 Occlusion and stenosis of right carotid artery (principal)
CPT/HCPCS: 93880

== ENCOUNTER 2022-07-01 13:12 | Outpatient (REF) | payer MEDICARE, SELFPAY ==
--- NOTE | 2022-07-01 08:30 | EMG_ITS ---
Right median and ulnar motor and sensory studies were performed. Right radial sensory study was performed, and paraspinal muscles were tested. IMPRESSION: 1. 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 2. Mild right ulnar neuropathy across cubital tunnel. MD KATE Francois/ABDIAS / [id number]
== END 2022-07-01 13:13 | disposition home or self-care (01) ==
LOC: HO.NEURO 13:12
PROVIDERS: PCP Internal Medicine; Visit Provider Internal Medicine
DX: M79.641 Pain in right hand (principal); M25.531 Pain in right wrist
CPT/HCPCS: 95886; 95909

== ENCOUNTER 2022-08-17 11:01 | Outpatient (REF) | payer MEDICARE, SELFPAY ==
[2022-08-17 13:36] LABS: MANUAL DIFF FLAG NO
[2022-08-17 13:42] LABS: Basophils Absolute Auto 0.1 X10*3/uL (0.0-0.2); Basophils Percent Auto 0.6 % (0-2); Eosinophils Absolute Auto 0.4 X10*3/uL (0.0-0.4); Eosinophils Percent Auto 4.2 % (0-4); Hematocrit 44.1 % (42.0-52.0); Hemoglobin 14.6 g/dl (14.0-18.0); Imm Gran Abs Auto 0.05 X10*3/uL (0.00-0.03); Imm Gran Pct Auto 0.5 % (0.0-0.4); Lymphocytes Absolute Auto 1.9 X10*3/uL (1.2-4.9); Lymphocytes Percent Auto 19.2 % (20-40); Mean Corpuscular HGB Conc 33.1 g/dl (31.0-36.0); Mean Corpuscular Hemoglobin 31.2 pg (27.0-33.0); Mean Corpuscular Volume 94.2 fL (80.0-98.0); Mean Platelet Volume 9.9 fL (9.4-12.4); Monocytes Percent Auto 10.1 % (2-11); Neutrophils Absolute Auto 6.5 x10*3/uL (2.0-8.3); Neutrophils Percent Auto 65.4 % (45-73); Platelet Count 274 X10*3/uL (160-400); Red Blood Count 4.68 X10*6/uL (4.60-5.80); Red Cell Distribution Width 12.7 % (11.0-16.0)
[2022-08-17 14:01] LABS: Alanine Aminotransferase 14 U/L (0-40); Alkaline Phosphatase 107 U/L (39-117); Anion Gap 13 (12-20); Aspartate Amino Transferase 18 U/L (5-37); Bilirubin Total 0.8 mg/dL (0.0-1.0); Blood Urea Nitrogen 15 mg/dL (9-16); Calcium 9.7 mg/dL (8.4-10.2); Carbon Dioxide 30 mmol/L (22-29); Chloride 97 mmol/L (96-108); Estimated Glomerular Filt Rate > 60; Glucose Random 96 mg/dL (60-115); Potassium 4.7 mmol/L (3.3-5.1); Sodium 135 mmol/L (135-145); Total Protein 6.7 g/dL (6.5-8.0)
== END 2022-08-17 11:02 | disposition home or self-care (01) ==
LOC: HO.10HDL 11:01
PROVIDERS: Visit Provider Internal Medicine
DX: J44.9 Chronic obstructive pulmonary disease, unspecified (principal); I48.91 Unspecified atrial fibrillation; R60.0 Localized edema; I10 Essential (primary) hypertension; I73.9 Peripheral vascular disease, unspecified
CPT/HCPCS: 36415; 80053; 85025

== ENCOUNTER 2022-09-29 08:56 | Outpatient (AMB) | payer MEDICARE, SELFPAY ==
--- NOTE | 2022-09-29 09:00 | MHC.OFFVIS ---
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 States symptoms started about 4-5 years and has worsen in the last 2 yrs especially at night time and mornings. States he has on and off numbness. Patient has tried bracing with little relief. EMG done. Patient would like to discuss injection vs surgical intervention. 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 He complains of numbness in the median nerve distribution of his right hand for ~5 years, worse in the last 2 years. He says his symptoms are intermittent, but daily, and worse at night. He denies any small finger numbness. His numbness is worse in the index finger & thumb, and he says he has difficulty with weakness or picking up objects. He found no relief from bracing and denies any other treatment. [facility] Medical History (Updated 09/29/22 @ 09:47 by Burton Ortiz) Bilateral carotid artery disease Chronic atrial fibrillation COPD (chronic obstructive pulmonary disease) COPD (chronic obstructive pulmonary disease) COPD (chronic obstructive pulmonary disease) with emphysema History of cardiomyopathy History of cardioversion HTN (hypertension) Hyperlipidemia Pneumonia Pneumonia Surgical History History of tonsillectomy and adenoidectomy Hx of cardiac cath Hx of colonoscopy Family History Father Stroke CVD (cardiovascular disease) Mother Colon cancer Diabetes Sister Diabetes COPD (chronic obstructive pulmonary disease) Breast cancer Social History (Updated 09/29/22 @ 09:05 by STANLEY Landin) Household Members: Spouse Housing: House Do you presently have visiting nurse or other home services: No Patient Tobacco Use Status: Former Tobacco user Quit Date: 2001 Tobacco use type: Cigarette Advance Directives Date on File: 06/11/21 service: No 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al status: retired 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 Review of Systems Const All systems reviewed & are unremarkable except as noted in HPI and below Physical Exam Vital Signs: BMI result Body Mass Index 23.0 Const General: cooperative, healthy appearing and no acute distress Orientation/consciousness: patient oriented x3 HEENT Head: Yes normocephalic and Yes atraumatic Eyes EOM: EOMs intact bilaterally Resp Effort & Inspection: normal respiratory effort and able to speak in complete sentences Cardio Jugular venous distension: no JVD Skin General skin exam: turgor normal Rashes: no rashes Neuro General: patient oriented x3 Extrem Other: Evaluation of Right Upper Extremity: The patient is alert, oriented, and in no acute distress Neuro: Dense numbness in the thumb & index finger today in clinic. Normal sensation in the middle, ring, and small fingers Mild thenar wasting, no intrinsic wasting Good APB muscle belly firing and good finger cross Vascular: Cap refill brisk ROM: He can make a fist and extend all his digits No locking or catching Skin: No lacerations or abrasions. General: No Ecchymosis. No Erythema or evidence of infection. Nerve Conduction Study: IMPRESSION:? 1. 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 2. Mild right ulnar neuropathy across cubital tunnel. 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 Maintained on rate control without obvious cardiac decompensation Code(s): I48.20 - Chronic atrial fibrillation, unspecified Plan Assessment & Plan: 1. Right Carpal tunnel syndrome, moderate-severe Dense numbness in the thumb & index finger, worse at night With mild thenar wasting I educated him about this condition I discussed operative and non-operative treatment options The patient would like to proceed with surgery The risks and benefits of operative treatment were discussed with the patient and the patient wishes to proceed with surgery. These risks include, but are not limited to risk of damage to blood vessels, nerves, tendons, infection, recurrence, incomplete relief of preoperative symptoms, persistent pain, possible need for further surgery and the risks associated with regional blocks and anesthesia. The plan is to take the patient to the operating room sometime in the next few weeks for the following procedures: 1. Right carpal tunnel release, under local All of the preoperative paperwork including the consent was filled out today. All the patient's questions were answered. The patient understands that they will be contacted by our appraisal manager soon to schedule this procedure He denies Diabetes, asthma, kidney issues He has a hx of afib, CAD, and COPD, and is on Eliquis 2. Right Cubital tunnel syndrome, mild Asymptomatic at this time I educated him on the signs of cubital tunnel, if he develops any increased numbness in the small finger he will contact the clinic Scribed for Carol Vu MD by Burton Ortiz, medical assistant internal medicine, on 09/29/22 at 9:45 AM, EST. 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
[2022-09-29 09:01] VITALS: BMI 23.0
== END 2022-09-29 09:58 | disposition home or self-care (01) ==
PROVIDERS: PCP Internal Medicine; Visit Provider Orthopaedic Surgery
DX: G56.01 Carpal tunnel syndrome, right upper limb (principal); G56.21 Lesion of ulnar nerve, right upper limb
CPT/HCPCS: 99204

== ENCOUNTER → 2022-09-29 08:56 | Outpatient (BNVA) | payer MEDICARE, SELFPAY | PROVIDERS: PCP Internal Medicine; Visit Provider Orthopaedic Surgery | DX: G56.01 Carpal tunnel syndrome, right upper limb (principal); G56.21 Lesion of ulnar nerve, right upper limb; I77.9 Disorder of arteries and arterioles, unspecified; I48.20 Chronic atrial fibrillation, unspecified | CPT/HCPCS: 99202 ==

== ENCOUNTER 2022-09-30 09:27 | Outpatient (AMB) | payer MEDICARE, SELFPAY ==
--- NOTE | 2022-09-30 09:30 | MHC.OFFVIS ---
Intake Vital Signs 09/30/22 09:31 Height 5 ft 11 in Weight 161 lb 6.054 oz BMI 22.5 BP 128/75 Blood Pressure Location Lt brachial Position Sitting Pulse 66 Intake Visit Reasons: 1 yr follow up Intake Note: Patient presents to in office visit today in 1 year follow up. Denies having any GI issues or concerns today. 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 He continues to decline any type of colon screening, colonoscopy or Cologuard. ROV 6 months. (2) Colonoscopy refused: ?Comment: ?also discussed Cologuard which she has refused ?Code(s): Z53.20 - Procedure and treatment not carried out because of patient's decision for unspecified reasons ? ? ? Medications:?Refilled pantoprazole 40 mg? PO DAILY 3 0 tabs 6RF K21.9 - Gastro-eso phageal reflux dis ease without esoph agitis TODAY'S VISIT He is here with his who is supportive. He continues to do well on his protonix. He continues to decline colonoscopy. With this he is quite satisfied with his GI regimen and since he is very stable we will move him to a 1 year follow-up and he is quite agreeable to this. ROV 1 years. [facility] Medical History (Updated 09/29/22 @ 09:47 by Burton Ortiz) Bilateral carotid artery disease Chronic atrial fibrillation COPD (chronic obstructive pulmonary disease) COPD (chronic obstructive pulmonary disease) COPD (chronic obstructive pulmonary disease) with emphysema History of cardiomyopathy History of cardioversion HTN (hypertension) Hyperlipidemia Pneumonia Pneumonia Surgical History History of tonsillectomy and adenoidectomy Hx of cardiac cath Hx of colonoscopy Family History Father Stroke CVD (cardiovascular disease) Mother Colon cancer Diabetes Sister Diabetes COPD (chronic obstructive pulmonary disease) Breast cancer Social History (Updated 09/29/22 @ 09:05 by Carmen Sood [facility]) Household Members: Spouse Housing: House Do you presently have visiting nurse or other home services: No Patient Tobacco Use Status: Former Tobacco user Quit Date: 2001 Tobacco use type: Cigarette Advance Directives Date on File: 06/11/21 service: No 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al status: retired 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 Review of Systems Const Denies fatigue, Denies fever(s), Denies night sweats, Denies poor appetite and Denies weight loss ENT Reports Normal hearing present, Denies dental pain, Denies dysphagia, Denies hearing loss, Denies mouth pain, Denies odynophagia, Denies throat swelling, Denies tongue swelling and Reports other (Dentition adequate) Card Reports no additional complaints Resp Reports no additional complaints GI Denies abdominal pain, Denies melena, Denies bloating, Denies hematochezia, Denies constipation, Denies GI cramping, Denies dysphagia, Denies excessive flatus, Denies early satiety, Reports heartburn, Denies diarrhea, Denies nausea, Denies odynophagia, Denies vomiting and Denies hematemesis Skin/Breast Denies pruritus, Denies lesions, Denies rash and Denies jaundice Neuro Reports Normal hearing present and Denies Abnormal speech present Endo Denies fatigue Aller/Immun Denies throat swelling and Denies tongue swelling Physical Exam Vital Signs: Last Vital Signs Pulse 66 09/30/22 09:31 BP 128/75 09/30/22 09:31 BMI result Body Mass Index 22.5 Const General: cooperative, no acute distress, well developed and well groomed Nutritional Appearance: well nourished and thin Orientation/consciousness: oriented to person, oriented to place and oriented to time Limitations: No language barrier HEENT Head: Yes normocephalic and Yes atraumatic Eyes General: appearance normal, both eyes and all related structures Pupils: Equal, round and reactive pupils present Neck Neck: Yes normal visual inspection and Yes no lymphadenopathy Thyroid: Thyroid normal Resp Effort & Inspection: normal respiratory effort and able to speak in complete sentences Auscultation: clear to auscultation bilaterally Cardio Rate: regular rate Rhythm: regular rhythm Heart sounds: Normal, physiologic split S2 sound present Peripheral pulses: radial pulses present and posterior tibial pulses present GI Inspection: No distended and No Abdominal panniculus present Palpation (GI): Soft to palpation, nontender, no guarding, not rigid and No hepatosplenomegaly present Percussion: Yes normal to percussion Auscultation: normal bowel sounds Rectal Exam - Male: Yes deferred Skin Other: Tattoos thinning skin General skin exam: no rashes or lesions noted, dry skin, no jaundice, No spider nevi, no striae and turgor decreased Rashes: no rashes Nails: normal Neuro General: oriented to person, oriented to place and oriented to time Cranial nerves: Yes Equal, round and reactive pupils present and Yes Normal hearing present Speech: No Abnormal speech present Extrem General: Yes normal to inspection, No clubbing, No cyanosis and No edema Psych Appearance: grossly normal and well kempt Mental Status: mental status grossly normal Speech and movement: Normal speech and movement present Affect: normal affect Attitude: cooperative Thought process: Normal thought process present and not confabulating Thought content: Normal thought content present Insight: Limited insight present (Psych) Judgement: Limited judgement present (Psych) Assessment & Plan Assessment & Plan (1) GERD (gastroesophageal reflux disease): Code(s): K21.9 - Gastro-esophageal reflux disease without esophagitis Plan: He is here with his who is supportive. He continues to do well on his protonix. He continues to decline colonoscopy. With this he is quite satisfied with his GI regimen and since he is very stable we will move him to a 1 year follow-up and he is quite agreeable to this. ROV 1 years. (2) Colonoscopy refused: Comment: also discussed Cologuard which she has refused Code(s): Z53.20 - Procedure and treatment not carried out because of patient's decision for unspecified reasons Medications: Refilled pantoprazole 40 mg PO DAILY 30 days 30 tabs 12RF K21.9 - Gastro-esophageal reflux disease without esophagitis Coding Level of Care Code Est Pt Level 3 (58678) Diagnoses GERD (gastroesophageal reflux disease) K21.9 Colonoscopy refused Z53.20
[2022-09-30 09:31] VITALS: BP 128/75; PULSE 66; BMI 22.5
== END 2022-09-30 09:49 | disposition home or self-care (01) ==
PROVIDERS: Visit Provider Nurse Practitioner
DX: K21.9 Gastro-esophageal reflux disease without esophagitis (principal); Z53.20 Procedure and treatment not carried out because of patient's decision for unspecified reasons
CPT/HCPCS: 99213

== ENCOUNTER → 2022-09-30 09:27 | Outpatient (BNVA) | payer MEDICARE, SELFPAY | PROVIDERS: Visit Provider Nurse Practitioner | DX: K21.9 Gastro-esophageal reflux disease without esophagitis (principal); Z79.899 Other long term (current) drug therapy | CPT/HCPCS: 99212 ==

== ENCOUNTER 2022-10-14 09:24 | Day surgery (SDC) | payer MEDICARE, SELFPAY ==
[2022-10-14 09:18] VITALS: BMI 23.0
[2022-10-14 09:43] VITALS: BP 151/64; PULSE 78; RESP 20; TEMP 36.6; O2SAT 95
--- NOTE | 2022-10-14 10:18 | PC.NURSE ---
dr rice aware patient took his eliquis okay to proceed no need to be held
--- NOTE | 2022-10-14 11:03 | PC.NURSE ---
report received from maximino ireland rn at this time.
--- NOTE | 2022-10-14 11:46 | MHC.SHP ---
Pre-Procedural Eval Section A Date of Service: 10/14/22 The patient is an INPATIENT: No Changes since office visit: No Cold of Flu in the past 2 weeks, No New Medical Problems, No Changes in Medication and No Patient answered all questions The History & Physical has been completed within 30 days and I have reviewed it.: Yes Section B Chief Complaint: Carpal tunnel syndrome, right upper limb Allergies: Allergies Allergy/AdvReac Type Severity Reaction Status Date / Time No Known Allergies Allergy Unknown UNKNOWN Verified 09/30/22 09:32 [NO KNOWN ALLERGIES] Plan I have reviewed the history and physical and performed a pertinent physical examination on my patient. No changes have occurred unless specified. Time Spent With Patient Time: Total time managing care of this patient today ____ minutes.
--- NOTE | 2022-10-14 11:46 | W.PM.OPN ---
Operative Note Operative Note Date of Service: 10/14/22 Narrative: Preop diagnosis: 1. right Carpal tunnel syndrome Postop diagnosis: same Procedure: 1. right Carpal tunnel release Surgeon: Carol Vu MD Anesthesia: local block using 1% lidocaine with epinephrine Findings: Thickened transverse carpal ligament. EBL: Less than 5 mL Specimens: None Complications: None Disposition: Brought to recovery room in stable condition Plan: Follow-up for 10-14 days for wound check and suture removal Indications: The patient is 82 years old, with right carpal tunnel syndrome that has been unresponsive to nonoperative management. The risks and benefits of operative treatment including but not limited to risk of damage to blood vessels, nerves, tendons, infection, persistent pain, persistent symptoms, or possible need for additional surgery were discussed with the patient and the patient wishes to proceed with surgery. Procedure: Once consent was obtained a local block was performed using a combination of 1% lidocaine with epinephrine. The patient was then brought back to the operating suite and placed on the operative table in supine position. The right upper extremity was prepped and draped in a standard surgical fashion. Once assured that we had a good block, a 2.0 cm longitudinal incision was made centered over the carpal tunnel. The incision was made through the skin to the subcutaneous tissues using a #15 blade. Dissection was made down to the level of the transverse carpal ligament with care being taken to protect the palmar cutaneous nerve. Once the transverse carpal ligament was clearly visualized, a longitudinal incision was made in the transverse carpal ligament 1st using a #15 blade, then using tenotomy scissors under direct visualization. Care was taken to look for and protect the motor branch of the median nerve when seen in this area. Once satisfied with our carpal tunnel release the wound was copiously irrigated with normal saline and hemostasis was obtained with a brief period of local pressure. The skin edges were reapproximated with some 5.0 nylon suture material and a sterile dressing was applied. The patient appears to have tolerated the procedure well and with no complications. All digits were well vascularized at the conclusion of the case.
[2022-10-14 11:47] VITALS: BP 148/69; PULSE 92; RESP 16; O2SAT 94
== END 2022-10-14 12:00 | disposition home or self-care (01) ==
PROVIDERS: PCP Internal Medicine; Visit Provider Orthopaedic Surgery
PROC: (CPT 64721; principal; 2022-10-14 10:30)
DX: G56.01 Carpal tunnel syndrome, right upper limb (principal); R20.0 Anesthesia of skin; R20.2 Paresthesia of skin; I48.20 Chronic atrial fibrillation, unspecified; I10 Essential (primary) hypertension; I77.9 Disorder of arteries and arterioles, unspecified; E78.5 Hyperlipidemia, unspecified; Z79.01 Long term (current) use of anticoagulants; J44.9 Chronic obstructive pulmonary disease, unspecified; Z87.891 Personal history of nicotine dependence
CPT/HCPCS: 64721; J0171

== ENCOUNTER → 2022-10-14 09:24 | Outpatient (BNV) | payer MEDICARE, SELFPAY | PROVIDERS: PCP Internal Medicine; Visit Provider Orthopaedic Surgery | DX: G56.01 Carpal tunnel syndrome, right upper limb (principal) | CPT/HCPCS: 64721 ==

== ENCOUNTER 2022-10-27 13:46 | Outpatient (AMB) | payer MEDICARE, SELFPAY ==
[2022-10-27 13:57] VITALS: BMI 23.0
--- NOTE | 2022-10-27 13:57 | MHC.OFFVIS ---
Intake Vital Signs 10/27/22 13:57 Height 5 ft 11 in Weight 165 lb BMI 23.0 Intake Visit Reasons: P/O CTR 10/14/22 Intake Note: Mac 82 yr old female presents today for her P/O visit for her right carpal tunnel release from 10/14/22. States numbness has improved and is now only having very little tingling in thumb. Sutures removed and steri strips applied. Allergies No Known Allergies [NO KNOWN ALLERGIES] Allergy (Unknown, Verified 10/27/22 14:04) UNKNOWN HPI P/O CTR 10/14/22 HPI Details Mac is an 82 year old right hand dominant man who presents S/P right carpal tunnel release, DOS: 10/14/22. He says he is doing well and has had good improvement in his numbness.. He has some mild numbness at the tip of his thumb and index finger, but normal sensation to the rest of his hand. He is happy with the results of his surgery [facility] Medical History (Updated 09/29/22 @ 09:47 by Burton Ortiz) Bilateral carotid artery disease Chronic atrial fibrillation COPD (chronic obstructive pulmonary disease) COPD (chronic obstructive pulmonary disease) COPD (chronic obstructive pulmonary disease) with emphysema History of cardiomyopathy History of cardioversion HTN (hypertension) Hyperlipidemia Pneumonia Pneumonia Surgical History History of tonsillectomy and adenoidectomy Hx of cardiac cath Hx of colonoscopy Family History Father Stroke CVD (cardiovascular disease) Mother Colon cancer Diabetes Sister Diabetes COPD (chronic obstructive pulmonary disease) Breast cancer Social History Household Members: Spouse Housing: House Do you presently have visiting nurse or other home services: No Patient Tobacco Use Status: Former Tobacco user Quit Date: 2001 Tobacco use type: Cigarette Advance Directives Date on File: 06/11/21 service: No 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al status: retired 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 Review of Systems Const All systems reviewed & are unremarkable except as noted in HPI and below Physical Exam Vital Signs: BMI result Body Mass Index 23.0 Const General: no acute distress and alert Orientation/consciousness: patient oriented x3 Neuro General: patient oriented x3 Extrem Other: The patient was alert oriented and in no acute distress The incision is healing well with no erythema drainage or evidence of infection. Sutures removed and Steri-Strips applied He can make a fist and extend all his digits Sensation is improved from prior to surgery in the median nerve distribution, still with some mild decreased sensation to the tip of the thumb & index finger. Cap refill is brisk Nerve Conduction Study: IMPRESSION:? 1. 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 2. Mild right ulnar neuropathy across cubital tunnel. 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 Right Carpal tunnel syndrome, S/P release Pre-operatively with dense numbness in the thumb & index finger, worse at night Now with improved sensation in the median nerve distribution, still some residual numbness to the tip of the thumb and index finger but improved from prior With mild thenar wasting The patient appears to be doing well post-operatively I educated him about the post-operative course I discussed activity modifications, he is to lift nothing heavier than a cellphone for the next two weeks He will perform gentle ROM exercises at home He should avoid any underwater activities for the next 5 days He should gently massage about the incision site to reduce the risk of hypersensitivity He can follow up prn 2. Right Cubital tunnel syndrome, mild Asymptomatic at this time I educated him on the signs of cubital tunnel, if he develops any increased numbness in the small finger he will contact the clinic Scribed for Carol Vu MD by Burton Ortiz, director medical writing, on 10/27/22 at 2:15 PM, EST. 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
== END 2022-10-27 14:24 | disposition home or self-care (01) ==
PROVIDERS: PCP Internal Medicine; Visit Provider Orthopaedic Surgery
DX: G56.01 Carpal tunnel syndrome, right upper limb (principal); G56.21 Lesion of ulnar nerve, right upper limb
CPT/HCPCS: 99024

== ENCOUNTER → 2022-10-27 13:46 | Outpatient (BNVA) | payer MEDICARE, SELFPAY | PROVIDERS: PCP Internal Medicine; Visit Provider Orthopaedic Surgery ==

== ENCOUNTER 2022-12-06 06:50 | Outpatient (REF) | payer MEDICARE, SELFPAY ==
[2022-12-06 11:22] LABS: Appearance Urine Turbid; Color Urine Yellow; Glucose Urine UA Negative (Negative); Leukocyte Esterase Urine Moderate (2+) (Negative); Nitrite Urine Positive (Negative); PH >= 9.0 (5.0-9.0); Specific Gravity - Urine 1.015 (1.005-1.025); UMIC TRIGGER UA YES; Urine Blood Negative (Negative); Urine Ketones Negative (Negative); Urine Protein Trace mg/dL (Neg-Trace)
[2022-12-06 11:25] LABS: MANUAL DIFF FLAG NO
[2022-12-06 11:34] LABS: Basophils Absolute Auto 0.1 X10*3/uL (0.0-0.2); Basophils Percent Auto 0.6 % (0-2); Eosinophils Absolute Auto 0.6 X10*3/uL (0.0-0.4); Eosinophils Percent Auto 4.6 % (0-4); Hematocrit 41.9 % (42.0-52.0); Hemoglobin 13.6 g/dl (14.0-18.0); Imm Gran Abs Auto 0.06 X10*3/uL (0.00-0.03); Imm Gran Pct Auto 0.5 % (0.0-0.4); Lymphocytes Percent Auto 15.2 % (20-40); Mean Corpuscular HGB Conc 32.5 g/dl (31.0-36.0); Mean Corpuscular Hemoglobin 30.6 pg (27.0-33.0); Mean Corpuscular Volume 94.2 fL (80.0-98.0); Mean Platelet Volume 10.4 fL (9.4-12.4); Monocytes Absolute Auto 1.3 X10*3/uL (0.1-1.2); Monocytes Percent Auto 10.1 % (2-11); Platelet Count 295 X10*3/uL (160-400); Red Blood Count 4.45 X10*6/uL (4.60-5.80); Red Cell Distribution Width 12.6 % (11.0-16.0); White Blood Count 13.1 X10*3/uL (4.8-10.8)
[2022-12-06 11:36] LABS: Bacteria Urine 2+ (None Seen); RBC Urine 0-2 /HPF (0-2); Squamous Epithelial Cell Urine 0-2 /HPF (0-2)
[2022-12-06 12:11] LABS: Alanine Aminotransferase 10 U/L (0-40); Albumin Level 3.8 g/dL (3.5-5.0); Alkaline Phosphatase 96 U/L (39-117); Anion Gap 16 (12-20); Aspartate Amino Transferase 14 U/L (5-37); Bilirubin Total 0.7 mg/dL (0.0-1.0); Blood Urea Nitrogen 19 mg/dL (9-16); Calcium 9.4 mg/dL (8.4-10.2); Carbon Dioxide 29 mmol/L (22-29); Chloride 92 mmol/L (96-108); Cholesterol 122 mg/dL (<200); Estimated Glomerular Filt Rate > 60; Glucose Fasting 93 mg/dL (60-99); HDL Cholesterol 42 mg/dL (>40); LDL Cholesterol Calculated 71 mg/dL (<100); Potassium 4.5 mmol/L (3.3-5.1); Sodium 132 mmol/L (135-145); Total Protein 6.6 g/dL (6.5-8.0); Triglycerides 48 mg/dL (<150)
== END 2022-12-06 06:51 | disposition home or self-care (01) ==
LOC: HO.HMGCLDS 06:50
PROVIDERS: PCP Internal Medicine; Visit Provider Internal Medicine
DX: J44.9 Chronic obstructive pulmonary disease, unspecified (principal); I73.9 Peripheral vascular disease, unspecified; K21.9 Gastro-esophageal reflux disease without esophagitis; I10 Essential (primary) hypertension; E78.00 Pure hypercholesterolemia, unspecified; I48.91 Unspecified atrial fibrillation
CPT/HCPCS: 36415; 80053; 80061; 81001; 85025

== ENCOUNTER 2022-12-23 08:26 | Outpatient (REF) | payer MEDICARE, SELFPAY ==
--- NOTE | ~2022-12-23 | XR_ITS ---
EXAMINATION: XR CHEST CLINICAL INFORMATION: Shortness of breath with history of COPD COMPARISON: Chest radiograph 07/06/2021, CT angiogram chest 06/11/2021 TECHNIQUE: 2 views of the chest were obtained. FINDINGS: Again noted are changes of severe emphysema with calcified granulomas present throughout the lung. Bronchiectatic changes are better demonstrated on the prior CT. Stable opacity in the mid left chest combination of area of bronchiectasis and calcifications, better characterized on prior CT. Compared to the prior chest radiograph, there has been no interval change. The heart size is normal. No new consolidations, pleural effusions or pneumothorax is seen. XR/XR chest 2V IMPRESSION: No acute intrathoracic disease. Severe emphysema with calcified granulomas and bronchiectasis. No interval change.
[2022-12-23 11:32] LABS: Basophils Absolute Auto 0.1 X10*3/uL (0.0-0.2); Basophils Percent Auto 0.4 % (0-2); Eosinophils Absolute Auto 0.4 X10*3/uL (0.0-0.4); Eosinophils Percent Auto 1.9 % (0-4); Hematocrit 37.2 % (42.0-52.0); Hemoglobin 12.2 g/dl (14.0-18.0); Imm Gran Abs Auto 0.19 X10*3/uL (0.00-0.03); Imm Gran Pct Auto 0.9 % (0.0-0.4); Lymphocytes Absolute Auto 1.1 X10*3/uL (1.2-4.9); Lymphocytes Percent Auto 5.2 % (20-40); MANUAL DIFF FLAG SCAN; Mean Corpuscular HGB Conc 32.8 g/dl (31.0-36.0); Mean Corpuscular Hemoglobin 29.9 pg (27.0-33.0); Mean Corpuscular Volume 91.2 fL (80.0-98.0); Mean Platelet Volume 8.7 fL (9.4-12.4); Monocytes Absolute Auto 2.1 X10*3/uL (0.1-1.2); Monocytes Percent Auto 9.9 % (2-11); Neutrophils Absolute Auto 17.1 x10*3/uL (2.0-8.3); Neutrophils Percent Auto 81.7 % (45-73); Platelet Count 655 X10*3/uL (160-400); Red Blood Count 4.08 X10*6/uL (4.60-5.80); SCAN SMEAR FLAG 1
[2022-12-23 12:14] LABS: Alanine Aminotransferase 99 U/L (0-40); Albumin Level 2.7 g/dL (3.5-5.0); Alkaline Phosphatase 98 U/L (39-117); Anion Gap 11 (12-20); Aspartate Amino Transferase 137 U/L (5-37); Bilirubin Total 0.6 mg/dL (0.0-1.0); Blood Urea Nitrogen 22 mg/dL (9-16); C Reactive Protein 21.47 mg/dL (< or = 0.50); Carbon Dioxide 35 mmol/L (22-29); Chloride 91 mmol/L (96-108); Estimated Glomerular Filt Rate > 60; Glucose Random 114 mg/dL (60-115); Potassium 3.9 mmol/L (3.3-5.1); Sodium 133 mmol/L (135-145); Total Protein 6.2 g/dL (6.5-8.0)
[2022-12-23 12:27] LABS: B Type Natriuretic Peptide 161 pg/mL (<100)
[2022-12-23 13:37] LABS: SLIDE REVIEW VERIFIED
== END 2022-12-23 08:27 | disposition home or self-care (01) ==
LOC: HO.HMGCX 08:26
PROVIDERS: PCP Internal Medicine; Visit Provider Internal Medicine
DX: I48.91 Unspecified atrial fibrillation (principal); I10 Essential (primary) hypertension; J44.9 Chronic obstructive pulmonary disease, unspecified; R60.9 Edema, unspecified; R06.02 Shortness of breath
CPT/HCPCS: 36415; 71046; 80053; 82550; 83880; 85025; 86140

== ENCOUNTER 2023-02-01 10:21 | Outpatient (AMB) | payer MEDICARE, SELFPAY ==
--- NOTE | 2023-02-01 10:30 | A.OFFVIS_ITS ---
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 Required: No Accompanied by: Spouse Allergies No Known Allergies [NO KNOWN ALLERGIES] Allergy (Unknown, Verified 10/27/22 14:04) UNKNOWN Medication List - Last Reviewed 02/01/23 by HEATH Vásquez albuterol sulfate 2.5 mg inhalation Q4H PRN albuterol sulfate 90 mcg/actuation 2 puffs inhalation Q6H PRN apixaban 5 mg PO BID atorvastatin 20 mg PO DAILY diltiazem HCl ER 240 mg PO DAILY diltiazem HCl ER 120 mg PO BEDTIME fluticasone propion-salmeterol 250-50 mcg/dose (Advair Diskus) 1 inh inhalation BID 30 days furosemide 20 mg PO BID metoprolol succinate ER 100 mg PO DAILY oxycodone-acetaminophen 5-325 mg 1 tab PO Q6H PRN pantoprazole 40 mg PO DAILY 30 days ropinirole 2 mg PO DAILY tiotropium bromide 2.5 mcg/actuation (Spiriva Respimat) 1 spray PO DAILY HPI HPI Comments History of Present Illness Details Mac comes for follow-up. He said recently started noticing increasing shortness of breath and a bilateral lower extremity edema. He was then started on furosemide 20 mg b.i.d. by Jigna about a month ago. He says leg edema is improved but continues to have exertional shortness of breath. He denies any clear significant shortness of breath. Denies any worsening lung function no wheezing. Denies any recent fever or chills. Denies any prolonged palpitations irregular heartbeat. No bleeding issues or neurologic events. His BNP done in December at shown a BNP of 161. He denies any lightheadedness, syncope. [facility] Medical History COPD (chronic obstructive pulmonary disease) Pneumonia Pneumonia COPD (chronic obstructive pulmonary disease) with emphysema Chronic atrial fibrillation HTN (hypertension) Bilateral carotid artery disease Hyperlipidemia History of cardiomyopathy COPD (chronic obstructive pulmonary disease) History of cardioversion Surgical History History of tonsillectomy and adenoidectomy Hx of colonoscopy Hx of cardiac cath Family History Father Stroke CVD (cardiovascular disease) Mother Colon cancer Diabetes Sister Diabetes COPD (chronic obstructive pulmonary disease) Breast cancer Social History Household Members: Spouse Housing: House Do you presently have visiting nurse or other home services: No Patient Tobacco Use Status: Former Tobacco user Quit Date: 2001 Tobacco use type: Cigarette Advance Directives Date on File: 06/11/21 service: No 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al status: retired 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 Review of Systems Const Reports chills, Reports fatigue, Reports fever(s), Reports frequent falls, Reports weakness, Reports weight gain and Reports weight loss ENT Reports dizziness Card Reports chest pain, Reports leg edema, Reports lightheadedness, Reports palpitations, Reports dyspnea and Reports dyspnea on exertion Resp Reports cough, Reports dyspnea and Reports dyspnea on exertion GI Reports hematochezia Musc Reports abnormal gait, Reports muscle weakness, Reports numbness, Reports radiating pain into limb and Reports tingling Neuro Reports abnormal gait, Reports dizziness, Reports frequent falls, Reports numb ness, Reports tingling and Reports weakness Endo Reports fatigue and Reports palpitations Physical Exam Vital Signs: Last Vital Signs Pulse 67 02/01/23 10:31 BP 106/50 L 02/01/23 10:31 BMI result Body Mass Index 22.0 Const General: cooperative, comfortable, alert and awake Nutritional Appearance: average body habitus Orientation/consciousness: patient oriented x3 Limitations: no limitations Neck Neck: Yes trachea midline, Yes supple and Yes no JVD Chest Chest palpation & inspection: normal inspection of the chest Resp Effort & Inspection: normal respiratory effort Auscultation: no crackles, no rales, no rhonchi, no wheezes and diminished lung sounds Cardio Jugular venous distension: no JVD Palpation: normal PMI Rhythm: abnormal rhythm irregularly irregular Heart sounds: S1 normal heart sound present and S2 normal heart sound present GI Auscultation: normal bowel sounds Skin General skin exam: no rashes or lesions noted Neuro General: patient oriented x3 and no focal motor deficits Extrem General: No clubbing, No cyanosis and Yes edema (One to 2+ below knee) Psych Appearance: grossly normal Office Procedures EKG Details: EKG shows atrial fibrillation with left axis deviation incomplete right bundle- branch block with poor R-wave progression [id number]-[id number], Complete Assessment & Plan Assessment & Plan (1) (HFpEF) heart failure with preserved ejection fraction: Code(s): I50.30 - Unspecified diastolic (congestive) heart failure Plan: Patient developing new symptoms of worsening shortness of breath as well as bilateral leg edema improved with diuretic therapy. I think patient developing heart failure syndrome at this point in time most likely related to chronic atrial fibrillation. Could also be related to right heart failure related advanced COPD. Will obtain an echocardiogram to assess for the same including filling pressures and biatrial chamber size any valvular abnormality and LV systolic function. Meanwhile agree with diuretic regimen. Will advise him to follow-up with blood work. If his potassium is within acceptable limits will consider starting spironolactone as additional heart failure therapy. Continue manage COPD aggressively. Continue rate control with atrial fibrillation. Management of heart failure was discussed including daily weight monitoring and additional diuretics as need be. Avoidance of salt loading was discussed. He was not quite happy to hear about it. Follow up in the clinic in 3 months time. (2) Chronic atrial fibrillation: Comment: failed maintenance of rhythm despite antiarrhythmic drug therapy and cardioversion. Maintained on rate control without obvious cardiac decompensation Code(s): I48.20 - Chronic atrial fibrillation, unspecified Plan: Chronic rate control atrial fibrillation. Continue rate control approach. Has failed rhythm control approach in the past. Unfortunately causing secondary heart failure development which is known in patients chronic atrial fibrillation. This was discussed with him. Continue full oral anticoagulation, currently on Eliquis 5 mg b.i.d.. At least semi annual renal function test should be pursued. Will follow up in the clinic in 3 months time, sooner p.r.n.. Thank you for allowing me to partake in his care Orders: Orders B Type Natriuretic Peptide Today I50.30 - Unspecified diastolic (congestive) heart failure CA echo transthoracic complete Today I50.30 - Unspecified diastolic (congestive) heart failure Basic Metabolic Panel Today I50.30 - Unspecified diastolic (congestive) heart failure Medications: New furosemide 20 mg PO BID Coding Level of Care Code Est Pt Level 4 (28847) Diagnoses (HFpEF) heart failure with preserved ejection fraction I50.30 Chronic atrial fibrillation I48.20 CPT Codes EKG - CPT: 56198-[id number], Complete ([id number])
[2023-02-01 10:31] VITALS: BP 106/50; PULSE 67; BMI 22.0
== END 2023-02-01 11:00 | disposition home or self-care (01) ==
PROVIDERS: Visit Provider Internal Medicine Cardiovascular Disease
DX: I50.30 Unspecified diastolic (congestive) heart failure (principal); I48.20 Chronic atrial fibrillation, unspecified
CPT/HCPCS: 93010; 99214

== ENCOUNTER → 2023-02-01 10:21 | Outpatient (BNVA) | payer MEDICARE, SELFPAY | PROVIDERS: Visit Provider Internal Medicine Cardiovascular Disease | DX: I50.30 Unspecified diastolic (congestive) heart failure (principal); I48.20 Chronic atrial fibrillation, unspecified | CPT/HCPCS: 93005; 99212 ==

== ENCOUNTER 2023-02-01 11:11 | Outpatient (REF) | payer MEDICARE, SELFPAY ==
[2023-02-01 12:11] LABS: B Type Natriuretic Peptide 237 pg/mL (<100)
[2023-02-01 12:15] LABS: Anion Gap 11 (12-20); Blood Urea Nitrogen 18 mg/dL (9-16); Calcium 9.3 mg/dL (8.4-10.2); Carbon Dioxide 34 mmol/L (22-29); Chloride 95 mmol/L (96-108); Estimated Glomerular Filt Rate > 60; Glucose Random 80 mg/dL (60-115); Potassium 4.4 mmol/L (3.3-5.1); Sodium 136 mmol/L (135-145)
== END 2023-02-01 11:12 | disposition home or self-care (01) ==
LOC: HO.LAB 11:11
PROVIDERS: Visit Provider Internal Medicine Cardiovascular Disease
DX: I50.30 Unspecified diastolic (congestive) heart failure (principal)
CPT/HCPCS: 36415; 80048; 83880

== ENCOUNTER 2023-02-16 10:39 | Outpatient (REF) | payer MEDICARE, SELFPAY ==
[2023-02-16 13:15] LABS: MANUAL DIFF FLAG NO
[2023-02-16 13:34] LABS: Basophils Absolute Auto 0.1 X10*3/uL (0.0-0.2); Basophils Percent Auto 0.6 % (0-2); Eosinophils Absolute Auto 0.5 X10*3/uL (0.0-0.4); Eosinophils Percent Auto 4.2 % (0-4); Hematocrit 42.3 % (42.0-52.0); Hemoglobin 13.6 g/dl (14.0-18.0); Imm Gran Abs Auto 0.04 X10*3/uL (0.00-0.03); Imm Gran Pct Auto 0.4 % (0.0-0.4); Lymphocytes Percent Auto 18.4 % (20-40); Mean Corpuscular HGB Conc 32.2 g/dl (31.0-36.0); Mean Corpuscular Hemoglobin 29.5 pg (27.0-33.0); Mean Corpuscular Volume 91.8 fL (80.0-98.0); Mean Platelet Volume 9.8 fL (9.4-12.4); Monocytes Percent Auto 9.4 % (2-11); Neutrophils Absolute Auto 7.4 x10*3/uL (2.0-8.3); Platelet Count 288 X10*3/uL (160-400); Red Blood Count 4.61 X10*6/uL (4.60-5.80); Red Cell Distribution Width 14.6 % (11.0-16.0); White Blood Count 11.1 X10*3/uL (4.8-10.8)
[2023-02-16 16:16] LABS: Alanine Aminotransferase 8 U/L (0-40); Alkaline Phosphatase 104 U/L (39-117); Anion Gap 15 (12-20); Aspartate Amino Transferase 13 U/L (5-37); Bilirubin Total 0.6 mg/dL (0.0-1.0); Blood Urea Nitrogen 22 mg/dL (9-16); C Reactive Protein 0.63 mg/dL (< or = 0.50); Calcium 9.4 mg/dL (8.4-10.2); Carbon Dioxide 32 mmol/L (22-29); Chloride 96 mmol/L (96-108); Estimated Glomerular Filt Rate > 60; Glucose Random 100 mg/dL (60-115); Potassium 4.5 mmol/L (3.3-5.1); Sodium 138 mmol/L (135-145); Total Protein 7.1 g/dL (6.5-8.0)
== END 2023-02-16 10:40 | disposition home or self-care (01) ==
LOC: HO.10HDL 10:39
PROVIDERS: Visit Provider Internal Medicine
DX: J44.9 Chronic obstructive pulmonary disease, unspecified (principal); I48.91 Unspecified atrial fibrillation; I10 Essential (primary) hypertension; R60.9 Edema, unspecified
CPT/HCPCS: 36415; 80053; 85025; 86140

== ENCOUNTER → 2023-02-18 08:54 | Outpatient (REF) | payer MEDICARE, SELFPAY ==
--- NOTE | 2023-02-18 08:57 | CA_ITS ---
Transthoracic Echocardiogram Patient (Last, First, Middle): Mac Marsh A Gender: Male Date of : 1940 Age: 83 Procedure Date: 02/18/2023 Procedure Type: Transthoracic Echocardiogram Location: OP Height: 177.8 cm Weight: 70.31 kg BSA: 1.87 m2 Heart Rate: 89 bpm BP: 115 / 60 mmHg Inventory Control Associate: TIERRA HERNANDEZ Referring MD: Moshe Morgan MD Symptoms: I50.30 - Unspecified diastolic (congestive) heart failure Study Quality: Fair ECG Rhythm: Atrial Fibrillation Conclusions: - The left ventricular systolic function is normal. The visually estimated ejection fraction is between 65-70%. - Moderately increased right ventricular cavity size. - No obvious valvular pathology seen on this study. Findings Left Ventricle Normal left ventricular cavity size. The left ventricular systolic function is normal. The visually estimated ejection fraction is between 65-70%. There is no evidence of regional wall motion abnormalities. Diastolic function is indeterminate on the basis of available data. There is mild septal asymmetric hypertrophy. Right Ventricle Moderately increased right ventricular cavity size. There is mildly decreased right ventricular systolic function. Atria The left atrium is likely dilated. There is no evidence of interatrial shunt by color Doppler. The right atrium is moderately dilated. Aortic Valve There is a normal trileaflet aortic valve. There is mild calcification of the aortic valve. There is no aortic valve regurgitation. Mitral Valve The mitral valve appears normal. There is trace mitral valve regurgitation. There is no mitral valve stenosis. Pulmonic Valve The pulmonic valve is likely normal. Tricuspid Valve Normal tricuspid valve structure. There is mild tricuspid valve regurgitation. There is no evidence of pulmonary hypertension. Great Vessels The asc aorta is normal in size. Venous The inferior vena cava is normal in size and collapses greater than 50% with inspiration. Pericardium/Pleural There is no evidence of pericardial effusion. Prior Study Comparison Changes noted compared to prior study dated: 06/11/2021. Right ventricular size seems larger. Recommendations, Care & Conclusions No obvious valvular pathology seen on this study. Measurements 2D Linear Measurements IVSd: 1.15 0.6-0.9/0.6-1.0 cm LVIDd: 3.92 3.9-5.3/4.2-5.9 cm LVIDd Index: 2.10 2.4-3.2/2.2-3.1 cm/m2 LVIDs: 1.64 2.0-3.6 cm LVPWd: 0.91 0.7-1.1 cm LA Diam: 4.50 2.7-3.8/3.0-4.0 cm LAIDs Index: 2.41 1.5-2.3 cm/m2 LV Mass: 160.20 67-162/88-224 g LV Mass Index: 85.67 43-95/49-115 g/m2 LVOT Diam: 2.20 3.0+(-)1.3 cm 2D Systolic Function EF 4C: 61.40 >55% EF 2C: 74.80 >55% EF BiP: 67.70 >55% Mitral Valve MV Pk E: 0.90 MV Decel Time: 126.00 E'Lateral: 9.14 E'Medial: 4.90 E/E' Med: 18.40 E/E' Lat: 9.80 PHT: 37.00 MVA PHT: 5.95 Decel [place]: 7.13 Aortic Valve AoV Pk Jamel: 1.12 AoV Mn Jamel: 0.86 AoV VTI: 0.23 AoV Pk Grad: 5.00 Aov Mn Grad: 3.00 NORMA Cont.VTI: 2.70 LVOT LVOT Pk Jamel: 0.69 LVOT Mn Jamel: 0.55 LVOT VTI: 0.17 LVOT Pk Grad: 2.00 LVOT Mn Grad: 1.00 LVOT Diam: 2.20 LVOT Area: 3.80 Diastolic Function MV Pk E: 0.90 E'Medial: 4.90 E/E' Med: 18.40 E' Laterial: 9.14 E/E' Lat: 9.80 Right Ventricle TAPSE (mm): 16.70 TVS' Jamel: 8.16 Tricuspid Valve TR Pk Jamel: 2.44 TR Pk Grad: 24.00 RA Press: 3.00 RVSP: 27.00 Great Vessels Aorta Sinus of Valsalva: 3.40 2.0-3.5 cm Ao Asc: 3.50 2.1-3.4 cm Updated in Other Vendor System with Status of Final Elliot Jurado MD electronically signed on 02/20/2023 11:59:52 AM with status of Final
== END ==
LOC: HO.CARD 08:54
PROVIDERS: Visit Provider Internal Medicine Cardiovascular Disease
DX: I50.30 Unspecified diastolic (congestive) heart failure (principal)
CPT/HCPCS: 93306

== ENCOUNTER → 2023-02-18 08:57 | Outpatient (BNV) | payer MEDICARE, SELFPAY | PROVIDERS: Visit Provider Internal Medicine | DX: I36.1 Nonrheumatic tricuspid (valve) insufficiency (principal); I50.30 Unspecified diastolic (congestive) heart failure | CPT/HCPCS: 93306 ==

== ENCOUNTER 2023-05-09 09:44 | Outpatient (AMB) | payer MEDICARE, SELFPAY ==
[2023-05-09 09:47] VITALS: BP 120/70; PULSE 70; BMI 21.2
--- NOTE | 2023-05-09 09:47 | A.OFFVIS_ITS ---
Intake Vital Signs 05/09/23 09:47 Height 5 ft 11 in Weight 152 lb 1.903 oz BMI 21.2 BP 120/70 Blood Pressure Location Lt brachial Position Sitting Pulse 70 Intake Visit Reasons: 3 mth f/up echo/ labs Intake Note: 3 month follow-up after echo feeling good Cradle Placer Required: No Supervisor Sawing And Assembly: Supervisor Sawing And Assembly Present Accompanied by: Spouse Allergies No Known Allergies [NO KNOWN ALLERGIES] Allergy (Unknown, Verified 10/27/22 14:04) UNKNOWN Medication List - Last Reconciled 05/09/23 by Moshe Morgan MD albuterol sulfate 2.5 mg inhalation Q4H PRN albuterol sulfate 90 mcg/actuation 2 puffs inhalation Q6H PRN apixaban 5 mg PO BID atorvastatin 20 mg PO DAILY diltiazem HCl ER 240 mg PO DAILY diltiazem HCl ER 120 mg PO BEDTIME fluticasone propion-salmeterol 250-50 mcg/dose (Advair Diskus) 1 inh inhalation BID 30 days furosemide 20 mg PO BID metoprolol succinate ER 100 mg PO DAILY oxycodone-acetaminophen 5-325 mg 1 tab PO Q6H PRN pantoprazole 40 mg PO DAILY 30 days ropinirole 2 mg PO DAILY spironolactone 12.5 mg (1/2 x 25 mg) PO DAILY 90 days tiotropium bromide 2.5 mcg/actuation (Spiriva Respimat) 1 spray PO DAILY HPI HPI Comments History of Present Illness Details Pj comes for follow-up. He has been doing okay with his fluid buildup appears taking Lasix 20 mg twice a day. However denies any orthopnea. 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 He said however he is doing and carrying heavy boxes which she has not used to do in the past. Denies any lightheadedness, syncope. No bleeding issues or neurologic events. [facility] Medical History COPD (chronic obstructive pulmonary disease) Pneumonia Pneumonia COPD (chronic obstructive pulmonary disease) with emphysema Chronic atrial fibrillation HTN (hypertension) Bilateral carotid artery disease Hyperlipidemia History of cardiomyopathy COPD (chronic obstructive pulmonary disease) History of cardioversion Surgical History History of tonsillectomy and adenoidectomy Hx of colonoscopy Hx of cardiac cath Family History Father Stroke CVD (cardiovascular disease) Mother Colon cancer Diabetes Sister Diabetes COPD (chronic obstructive pulmonary disease) Breast cancer Social History Household Members: Spouse Housing: House Do you presently have visiting nurse or other home services: No Patient Tobacco Use Status: Former Tobacco user Quit Date: 2001 Tobacco use type: Cigarette Advance Directives Date on File: 06/11/21 service: No 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al status: retired 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 Review of Systems Const Denies chills, Denies fatigue, Denies fever(s), Denies frequent falls, Denies weakness, Denies weight gain and Denies weight loss ENT Denies dizziness Card Denies chest pain, Denies leg edema, Denies lightheadedness, Denies palpitations, Denies dyspnea, Denies dyspnea on exertion, Denies orthopnea and Denies other (loss of consciousness) Resp Denies cough, Denies dyspnea and Denies dyspnea on exertion GI Denies hematochezia and Denies change in stool character Musc Denies abnormal gait, Denies muscle weakness, Denies numbness, Denies radiating pain into limb and Denies tingling Neuro Denies abnormal gait, Denies dizziness, Denies frequent falls, Denies numbness, Denies tingling and Denies weakness Endo Denies fatigue and Denies palpitations Physical Exam Vital Signs: Last Vital Signs Pulse 70 05/09/23 09:47 BP 120/70 05/09/23 09:47 BMI result Body Mass Index 21.2 Const General: cooperative, comfortable, alert and awake Nutritional Appearance: average body habitus Orientation/consciousness: patient oriented x3 Limitations: no limitations Neck Neck: Yes trachea midline, Yes supple and Yes no JVD Chest Chest palpation & inspection: normal inspection of the chest Resp Effort & Inspection: normal respiratory effort Auscultation: no crackles, no rales, no rhonchi, no wheezes and diminished lung sounds Cardio Jugular venous distension: no JVD Palpation: normal PMI Rhythm: abnormal rhythm irregularly irregular Heart sounds: S1 normal heart sound present and S2 normal heart sound present GI Auscultation: normal bowel sounds Skin General skin exam: no rashes or lesions noted Neuro General: patient oriented x3 and no focal motor deficits Extrem General: No clubbing, No cyanosis and No edema Psych Appearance: grossly normal Assessment & Plan Assessment & Plan (1) (HFpEF) heart failure with preserved ejection fraction: Code(s): I50.30 - Unspecified diastolic (congestive) heart failure Plan: Heart failure preserved ejection fraction, clinically euvolemic and well compensated. Currently on Lasix 20 mg twice a day. Advised him to switch her to 40 mg once a day for convenience and knees of remembering. Signs and symptoms of heart failure were discussed. Most likely related to advancing age and chronic atrial fibrillation with underlying COPD. Daily weight monitoring avoidance of salt loading was discussed. Additional diuretics as need be. Advised to call me with worsening symptoms of congestion. (2) Chronic atrial fibrillation: Comment: failed maintenance of rhythm despite antiarrhythmic drug therapy and cardioversion. Maintained on rate control without obvious cardiac decompensation Code(s): I48.20 - Chronic atrial fibrillation, unspecified Plan: Chronic atrial fibrillation has failed rhythm control approach despite antiarrhythmic drug therapy. Continue aggressive rate control, currently on metoprolol high dose as well as Cardizem twice a day. Continue the same. Continue full oral anticoagulation, currently on Eliquis 5 mg b.i.d.. Semi annual renal function test should be pursued. Follow up in the clinic in 6 months time. Coding Level of Care Code Est Pt Level 4 (29480) Diagnoses (HFpEF) heart failure with preserved ejection fraction I50.30 Chronic atrial fibrillation I48.20
== END 2023-05-09 10:07 | disposition home or self-care (01) ==
PROVIDERS: PCP Internal Medicine; Visit Provider Internal Medicine Cardiovascular Disease
DX: I50.30 Unspecified diastolic (congestive) heart failure (principal); I48.20 Chronic atrial fibrillation, unspecified
CPT/HCPCS: 99214

== ENCOUNTER → 2023-05-09 09:44 | Outpatient (BNVA) | payer MEDICARE, SELFPAY | PROVIDERS: PCP Internal Medicine; Visit Provider Internal Medicine Cardiovascular Disease | DX: I50.30 Unspecified diastolic (congestive) heart failure (principal); I48.20 Chronic atrial fibrillation, unspecified | CPT/HCPCS: 99212 ==

== ENCOUNTER 2023-05-12 10:43 | Outpatient (REF) | payer MEDICARE, SELFPAY ==
[2023-05-12 13:30] LABS: MANUAL DIFF FLAG NO
[2023-05-12 13:43] LABS: Basophils Absolute Auto 0.1 X10*3/uL (0.0-0.2); Basophils Percent Auto 0.7 % (0-2); Eosinophils Absolute Auto 0.4 X10*3/uL (0.0-0.4); Eosinophils Percent Auto 3.6 % (0-4); Hematocrit 44.9 % (42.0-52.0); Hemoglobin 14.8 g/dl (14.0-18.0); Imm Gran Abs Auto 0.05 X10*3/uL (0.00-0.03); Imm Gran Pct Auto 0.5 % (0.0-0.4); Lymphocytes Absolute Auto 1.9 X10*3/uL (1.2-4.9); Lymphocytes Percent Auto 17.8 % (20-40); Mean Corpuscular Hemoglobin 29.9 pg (27.0-33.0); Mean Corpuscular Volume 90.7 fL (80.0-98.0); Mean Platelet Volume 9.4 fL (9.4-12.4); Monocytes Absolute Auto 0.9 X10*3/uL (0.1-1.2); Monocytes Percent Auto 8.5 % (2-11); Neutrophils Absolute Auto 7.2 x10*3/uL (2.0-8.3); Neutrophils Percent Auto 68.9 % (45-73); Platelet Count 296 X10*3/uL (160-400); Red Blood Count 4.95 X10*6/uL (4.60-5.80); Red Cell Distribution Width 13.5 % (11.0-16.0); White Blood Count 10.4 X10*3/uL (4.8-10.8)
[2023-05-12 13:54] LABS: Alanine Aminotransferase 9 U/L (0-40); Alkaline Phosphatase 104 U/L (39-117); Anion Gap 12 (12-20); Aspartate Amino Transferase 13 U/L (5-37); Bilirubin Total 0.5 mg/dL (0.0-1.0); Blood Urea Nitrogen 30 mg/dL (9-16); Calcium 9.8 mg/dL (8.4-10.2); Carbon Dioxide 35 mmol/L (22-29); Chloride 96 mmol/L (96-108); Estimated Glomerular Filt Rate 59; Glucose Random 86 mg/dL (60-115); Potassium 4.4 mmol/L (3.3-5.1); Sodium 139 mmol/L (135-145); Total Protein 7.4 g/dL (6.5-8.0)
== END 2023-05-12 10:44 | disposition home or self-care (01) ==
LOC: HO.10HDL 10:43
PROVIDERS: Visit Provider Internal Medicine
DX: J44.9 Chronic obstructive pulmonary disease, unspecified (principal); I48.91 Unspecified atrial fibrillation
CPT/HCPCS: 36415; 80053; 85025

== ENCOUNTER 2023-08-18 11:46 | Outpatient (REF) | payer MEDICARE, SELFPAY ==
[2023-08-18 13:12] LABS: MANUAL DIFF FLAG NO
[2023-08-18 13:13] LABS: Basophils Absolute Auto 0.1 X10*3/uL (0.0-0.2); Basophils Percent Auto 0.4 % (0-2); Eosinophils Absolute Auto 0.3 X10*3/uL (0.0-0.4); Eosinophils Percent Auto 2.4 % (0-4); Hematocrit 41.6 % (42.0-52.0); Hemoglobin 13.9 g/dl (14.0-18.0); Imm Gran Abs Auto 0.03 X10*3/uL (0.00-0.03); Imm Gran Pct Auto 0.3 % (0.0-0.4); Lymphocytes Absolute Auto 1.9 X10*3/uL (1.2-4.9); Mean Corpuscular HGB Conc 33.4 g/dl (31.0-36.0); Mean Corpuscular Hemoglobin 30.8 pg (27.0-33.0); Mean Platelet Volume 9.2 fL (9.4-12.4); Monocytes Absolute Auto 1.1 X10*3/uL (0.1-1.2); Monocytes Percent Auto 9.7 % (2-11); Neutrophils Absolute Auto 8.4 x10*3/uL (2.0-8.3); Neutrophils Percent Auto 71.2 % (45-73); Platelet Count 268 X10*3/uL (160-400); Red Blood Count 4.52 X10*6/uL (4.60-5.80); Red Cell Distribution Width 12.4 % (11.0-16.0); White Blood Count 11.7 X10*3/uL (4.8-10.8)
[2023-08-18 13:24] LABS: Anion Gap 13 (12-20); Blood Urea Nitrogen 25 mg/dL (9-16); Calcium 9.6 mg/dL (8.4-10.2); Carbon Dioxide 32 mmol/L (22-29); Chloride 93 mmol/L (96-108); Estimated Glomerular Filt Rate 56; Glucose Random 98 mg/dL (60-115); Potassium 4.3 mmol/L (3.3-5.1); Sodium 134 mmol/L (135-145)
== END 2023-08-18 11:47 | disposition home or self-care (01) ==
LOC: HO.10HDL 11:46
PROVIDERS: Visit Provider Internal Medicine
DX: Z13.89 Encounter for screening for other disorder (principal)
CPT/HCPCS: 36415; 80048; 85025

== ENCOUNTER 2023-08-18 11:58 | Outpatient (REF) | payer MEDICARE, SELFPAY ==
--- NOTE | ~2023-08-18 | XR_ITS ---
EXAMINATION: XR CHEST CLINICAL INFORMATION: COPD. COMPARISON: December 23, 2022. TECHNIQUE: 2 views of the chest were obtained. FINDINGS: The lungs are hyperinflated with redemonstration of severe emphysema with calcified granulomata. Redemonstration of asymmetric right apical pleural thickening, bronchiectatic changes and stable opacity in the mid left chest, better characterized on CT chest. Stable right costophrenic angle blunting. S-shaped thoracolumbar scoliosis with multilevel degenerative changes. XR/XR chest 2V IMPRESSION: Redemonstration of severe emphysema with calcified granulomata. Redemonstration of asymmetric right apical pleural thickening, bronchiectatic changes and stable opacity in the mid left chest, better characterized on CT chest. Stable right costophrenic angle blunting.
== END 2023-08-18 11:59 | disposition home or self-care (01) ==
LOC: HO.XRAY 11:58
PROVIDERS: PCP Internal Medicine; Visit Provider Internal Medicine
DX: J44.9 Chronic obstructive pulmonary disease, unspecified (principal); R63.4 Abnormal weight loss; I48.91 Unspecified atrial fibrillation
CPT/HCPCS: 36415; 71046; 80048; 85025

== ENCOUNTER 2023-10-26 11:22 | Outpatient (AMB) | payer MEDICARE, SELFPAY ==
--- NOTE | 2023-10-26 11:28 | MHC.OFFVIS ---
Vital Signs 10/26/23 11:29 Height 5 ft 11 in Weight 147 lb BMI 20.5 BP 116/57 L Blood Pressure Location Lt brachial Position Sitting Pulse 63 Intake Visit Reasons: 1 yr follow up Intake Note: Patient yearly follow up for GERD. Patient denies any GI issues or concern. College Dean Required: No Accompanied by: Self / Same As Patient Allergies No Known Allergies [NO KNOWN ALLERGIES] Allergy (Unknown, Verified 10/26/23 11:27) UNKNOWN HPI HPI 1 yr follow up: Details: Assessment & Plan (1) GERD (gastroesophageal reflux disease): Code(s): K21.9 - Gastro-esophageal reflux disease without esophagitis Plan: He is here with his who is supportive. He continues to do well on his protonix. He continues to decline colonoscopy. With this he is quite satisfied with his GI regimen and since he is very stable we will move him to a 1 year follow-up and he is quite agreeable to this. ROV 1 years. (2) Colonoscopy refused: Comment: also discussed Cologuard which she has refused Code(s): Z53.20 - Procedure and treatment not carried out because of patient's decision for unspecified reasons Medications: Refilled pantoprazole 40 mg PO DAILY 30 days 30 tabs 12RF K21.9 - Gastro-esophageal reflux disease without esophagitis TODAY'S VISIT He is here today with his who is supportive. He would prefer to have Dr. Cifuentes take over his pantorpazole prescribing and this is fine wiht me since he has been very stable. He is always welcome to return to our service if needed/desired. prn PFSH Medical History COPD (chronic obstructive pulmonary disease) Pneumonia Pneumonia COPD (chronic obstructive pulmonary disease) with emphysema Chronic atrial fibrillation HTN (hypertension) Bilateral carotid artery disease Hyperlipidemia History of cardiomyopathy COPD (chronic obstructive pulmonary disease) History of cardioversion Surgical History History of tonsillectomy and adenoidectomy Hx of colonoscopy Hx of cardiac cath Family History Father Stroke CVD (cardiovascular disease) Mother Colon cancer Diabetes Sister Diabetes COPD (chronic obstructive pulmonary disease) Breast cancer Social History Household Members: Spouse Housing: House Do you presently have visiting nurse or other home services: No Patient Tobacco Use Status: Former Tobacco user Tobacco use type: Cigarette Advance Directives Date on File: 06/11/21 service: No 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al status: retired 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 Review of Systems Const Denies fatigue, Denies fever(s), Denies night sweats, Denies poor appetite and Denies weight loss ENT Reports Normal hearing present, Denies dental pain, Denies dysphagia, Denies hearing loss, Denies mouth pain, Denies odynophagia, Denies throat swelling, Denies tongue swelling and Reports other (Dentition adequate) Card Reports no additional complaints Resp Reports no additional complaints GI Details: Denies abdominal pain, Denies melena, Denies bloating, Denies hematochezia, Denies constipation, Denies GI cramping, Denies dysphagia, Denies excessive flatus, Denies early satiety, Reports heartburn, Denies diarrhea, Denies nausea, Denies odynophagia, Denies vomiting and Denies hematemesis Skin/Breast Denies pruritus, Denies lesions, Denies rash and Denies jaundice Neuro Reports Normal hearing present and Denies Abnormal speech present Endo Denies fatigue Aller/Immun Denies throat swelling and Denies tongue swelling Physical Exam Vital Signs: Last Vital Signs Pulse 63 10/26/23 11:29 BP 116/57 L 10/26/23 11:29 BMI result Body Mass Index 20.5 Const General: cooperative, no acute distress, well developed and well groomed Nutritional Appearance: average body habitus and well nourished Orientation/consciousness: oriented to person, oriented to place and oriented to time Limitations: No language barrier HEENT Head: Yes normocephalic and Yes atraumatic Eyes General: appearance normal, both eyes and all related structures Pupils: Equal, round and reactive pupils present Neck Neck: Yes normal visual inspection and Yes no lymphadenopathy Thyroid: Thyroid normal Resp Effort & Inspection: normal respiratory effort and able to speak in complete sentences GI Inspection: No distended and No Abdominal panniculus present Palpation (GI): Soft to palpation, nontender, no guarding, not rigid and No hepatosplenomegaly present Percussion: Yes normal to percussion Auscultation: normal bowel sounds Rectal Exam - Male: Yes deferred Skin General skin exam: no rashes or lesions noted, turgor normal, skin not dry, no jaundice, No spider nevi and no striae Rashes: no rashes Nails: normal Neuro General: oriented to person, oriented to place and oriented to time Cranial nerves: Yes Equal, round and reactive pupils present and Yes Normal hearing present Speech: No Abnormal speech present Extrem General: Yes normal to inspection Psych Appearance: grossly normal and well kempt Mental Status: mental status grossly normal Speech and movement: Normal speech and movement present Affect: normal affect Attitude: cooperative Thought process: Normal thought process present and not confabulating Thought content: Normal thought content present Insight: Limited insight present (Psych) Judgement: Limited judgement present (Psych) Assessment & Plan Assessment & Plan (1) GERD (gastroesophageal reflux disease): Code(s): K21.9 - Gastro-esophageal reflux disease without esophagitis Category: Medical Plan He is here today with his who is supportive. He would prefer to have Dr. Cifuentes take over his pantorpazole prescribing and this is fine wiht me since he has been very stable. He is always welcome to return to our service if needed/desired. prn Medications: Refilled pantoprazole 40 mg PO DAILY 30 tabs 12RF 30 days K21.9 - Gastro-esophageal reflux disease without esophagitis Coding Level of Care Code Est Pt Level 3 (85198) Diagnoses GERD (gastroesophageal reflux disease) K21.9
[2023-10-26 11:29] VITALS: BP 116/57; PULSE 63; BMI 20.5
== END 2023-10-26 11:46 | disposition home or self-care (01) ==
PROVIDERS: PCP Internal Medicine; Visit Provider Nurse Practitioner
DX: K21.9 Gastro-esophageal reflux disease without esophagitis (principal)
CPT/HCPCS: 99213

== ENCOUNTER → 2023-10-26 11:22 | Outpatient (BNVA) | payer MEDICARE, SELFPAY | PROVIDERS: PCP Internal Medicine; Visit Provider Nurse Practitioner | DX: K21.9 Gastro-esophageal reflux disease without esophagitis (principal) | CPT/HCPCS: 99212 ==

== ENCOUNTER 2023-10-31 11:10 | Outpatient (AMB) | payer MEDICARE, SELFPAY ==
[2023-10-31 11:22] VITALS: BP 110/62; PULSE 50; BMI 20.9
--- NOTE | 2023-10-31 11:22 | MHC.OFFVIS ---
Vital Signs 10/31/23 11:22 Height 5 ft 11 in Weight 149 lb 14.629 oz BMI 20.9 BP 110/62 Blood Pressure Location Lt brachial Position Sitting Pulse 50 Intake Visit Reasons: 6 mth f/up Intake Note: 6 month follow-up with ekg feeling good [employer] Required: No Allergies No Known Allergies [NO KNOWN ALLERGIES] Allergy (Unknown, Verified 10/26/23 11:27) UNKNOWN Medication List - Last Reconciled 10/31/23 by Moshe Morgan MD albuterol sulfate 2.5 mg inhalation Q4H PRN albuterol sulfate 90 mcg/actuation 2 puffs inhalation Q6H PRN apixaban 5 mg PO BID atorvastatin 20 mg PO DAILY diltiazem HCl ER 240 mg PO DAILY diltiazem HCl ER 120 mg PO BEDTIME fluticasone propion-salmeterol 250-50 mcg/dose (Advair Diskus) 1 inh inhalation BID 30 days furosemide 20 mg PO BID metoprolol succinate ER 100 mg PO DAILY oxycodone-acetaminophen 5-325 mg 1 tab PO Q6H PRN pantoprazole 40 mg PO DAILY 30 days ropinirole 2 mg PO DAILY spironolactone 12.5 mg (1/2 x 25 mg) PO DAILY 90 days tiotropium bromide 2.5 mcg/actuation (Spiriva Respimat) 1 spray PO DAILY HPI Comments Details: Mac comes for follow-up. He is accompanied by his . Continues to have exertional shortness of breath, NYHA class 2-3. Denies any clear orthopnea although has trouble laying flat for a long time uses pillows. However he has no leg edema, PND. Denies any palpitations. Takes all his medication including his diuretic regimen. No hospitalization the last 6 months. Denies any bleeding issues or neurologic events. [facility] Medical History COPD (chronic obstructive pulmonary disease) Pneumonia Pneumonia COPD (chronic obstructive pulmonary disease) with emphysema Chronic atrial fibrillation HTN (hypertension) Bilateral carotid artery disease Hyperlipidemia History of cardiomyopathy COPD (chronic obstructive pulmonary disease) History of cardioversion Surgical History History of tonsillectomy and adenoidectomy Hx of colonoscopy Hx of cardiac cath Family History Father Stroke CVD (cardiovascular disease) Mother Colon cancer Diabetes Sister Diabetes COPD (chronic obstructive pulmonary disease) Breast cancer Social History Household Members: Spouse Housing: House Do you presently have visiting nurse or other home services: No Patient Tobacco Use Status: Former Tobacco user Tobacco use type: Cigarette Advance Directives Date on File: 06/11/21 service: No 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al status: retired 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 Review of Systems Const Denies chills, Denies fatigue, Denies fever(s), Denies frequent falls, Denies weakness, Denies weight gain and Denies weight loss ENT Denies dizziness Card Denies chest pain, Denies leg edema, Denies lightheadedness, Denies palpitations, Denies dyspnea, Denies dyspnea on exertion, Denies orthopnea and Denies other (loss of consciousness) Resp Denies cough, Denies dyspnea and Denies dyspnea on exertion GI Denies hematochezia and Denies change in stool character Musc Denies abnormal gait, Denies muscle weakness, Denies numbness, Denies radiating pain into limb and Denies tingling Neuro Denies abnormal gait, Denies dizziness, Denies frequent falls, Denies numbness, Denies tingling and Denies weakness Endo Denies fatigue and Denies palpitations Physical Exam Vital Signs: Last Vital Signs Pulse 50 10/31/23 11:22 BP 110/62 10/31/23 11:22 BMI result Body Mass Index 20.9 Const General: cooperative, comfortable, alert and awake Nutritional Appearance: average body habitus Orientation/consciousness: patient oriented x3 Limitations: no limitations Neck Neck: Yes trachea midline, Yes supple and Yes no JVD Chest Chest palpation & inspection: normal inspection of the chest Resp Effort & Inspection: normal respiratory effort Auscultation: no crackles, no rales, no rhonchi, no wheezes and diminished lung sounds Cardio Jugular venous distension: no JVD Palpation: normal PMI Rhythm: abnormal rhythm irregularly irregular Heart sounds: S1 normal heart sound present and S2 normal heart sound present GI Auscultation: normal bowel sounds Skin General skin exam: no rashes or lesions noted Neuro General: patient oriented x3 and no focal motor deficits Extrem General: No clubbing, No cyanosis and No edema Psych Appearance: grossly normal Office Procedures EKG Details: EKG shows atrial fibrillation with slow ventricular response with incomplete right bundle-branch block and RVH with right axis deviation [id number], Complete Assessment & Plan Assessment & Plan (1) (HFpEF) heart failure with preserved ejection fraction: Code(s): I50.30 - Unspecified diastolic (congestive) heart failure Category: Medical Plan: Patient with significant exertional shortness of breath related to multifactorial issues including aging with deconditioning as well as advanced COPD as well as heart failure preserved ejection fraction in the setting of chronic atrial fibrillation. Clinically appears to be euvolemic and well compensated current diuretic regimen. Importance of medical therapy was discussed. Continue the same. Continue current diuretic regimen as well as Aldactone therapy for neurohormonal modulation. BNP should be pursued every 6 months. Signs and symptoms of heart failure were discussed advised to call me with any worsening symptoms. Daily weight monitoring avoidance salt loading was discussed. Continue maintain activity level as tolerated. Discussed with him possibly considering oxygen therapy although he says he is not going to go on chronic oxygen therapy. (2) Chronic atrial fibrillation: Comment: failed maintenance of rhythm despite antiarrhythmic drug therapy and cardioversion. Maintained on rate control without obvious cardiac decompensation Code(s): I48.20 - Chronic atrial fibrillation, unspecified Category: Medical Plan: Chronic rate control atrial fibrillation has failed rhythm control approach. Currently on high-dose metoprolol as well as Cardizem therapy. Heart rate is well controlled. No indication for pacing. Continue rate control approach. Continue full oral anticoagulation, currently on Eliquis 5 mg b.i.d.. At least semi annual renal function test and annual CBC should be pursued. Importance of oral anticoagulation was discussed. Will follow up in the clinic in 6 months time, sooner p.r.n.. Thank you for allowing me to partake in his care Coding Level of Care Code Est Pt Level 4 (08054) Diagnoses (HFpEF) heart failure with preserved ejection fraction I50.30 Chronic atrial fibrillation I48.20 CPT Codes EKG - CPT: 62519-[id number], Complete ([id number])
== END 2023-10-31 11:44 | disposition home or self-care (01) ==
PROVIDERS: PCP Internal Medicine; Visit Provider Internal Medicine Cardiovascular Disease
DX: I50.30 Unspecified diastolic (congestive) heart failure (principal); I48.20 Chronic atrial fibrillation, unspecified
CPT/HCPCS: 93010; 99214

== ENCOUNTER → 2023-10-31 11:10 | Outpatient (BNVA) | payer MEDICARE, SELFPAY | PROVIDERS: PCP Internal Medicine; Visit Provider Internal Medicine Cardiovascular Disease | DX: I50.30 Unspecified diastolic (congestive) heart failure (principal); I48.20 Chronic atrial fibrillation, unspecified; I45.10 Unspecified right bundle-branch block; I51.7 Cardiomegaly; R94.31 Abnormal electrocardiogram [ECG] [EKG] | CPT/HCPCS: 93005; 99212 ==

== ENCOUNTER 2023-12-13 09:10 | Outpatient (REF) | payer MEDICARE, SELFPAY ==
[2023-12-13 09:27] LABS: MANUAL DIFF FLAG NO
[2023-12-13 09:45] LABS: Basophils Absolute Auto 0.1 X10*3/uL (0.0-0.2); Basophils Percent Auto 0.4 % (0-2); Eosinophils Absolute Auto 0.6 X10*3/uL (0.0-0.4); Eosinophils Percent Auto 4.5 % (0-4); Hematocrit 42.5 % (42.0-52.0); Hemoglobin 13.8 g/dl (14.0-18.0); Imm Gran Abs Auto 0.05 X10*3/uL (0.00-0.03); Imm Gran Pct Auto 0.4 % (0.0-0.4); Lymphocytes Absolute Auto 1.7 X10*3/uL (1.2-4.9); Mean Corpuscular HGB Conc 32.5 g/dl (31.0-36.0); Mean Corpuscular Hemoglobin 30.5 pg (27.0-33.0); Mean Corpuscular Volume 93.8 fL (80.0-98.0); Mean Platelet Volume 8.6 fL (9.4-12.4); Monocytes Absolute Auto 1.1 X10*3/uL (0.1-1.2); Neutrophils Absolute Auto 8.7 x10*3/uL (2.0-8.3); Neutrophils Percent Auto 71.7 % (45-73); Platelet Count 435 X10*3/uL (160-400); Red Blood Count 4.53 X10*6/uL (4.60-5.80); Red Cell Distribution Width 12.7 % (11.0-16.0); White Blood Count 12.1 X10*3/uL (4.8-10.8)
[2023-12-13 09:52] LABS: Appearance Urine Clear; Color Urine Yellow; Glucose Urine UA Negative (Negative); Leukocyte Esterase Urine Large (3+) (Negative); Nitrite Urine Negative (Negative); PH 7.5 (5.0-9.0); Specific Gravity - Urine 1.015 (1.005-1.025); UMIC TRIGGER UA YES; Urine Blood Trace (Negative); Urine Ketones Negative (Negative); Urine Protein Trace mg/dL (Neg-Trace)
[2023-12-13 09:54] LABS: Bacteria Urine 3+ (None Seen); Hyaline Casts Urine 0-2 /LPF (0-2); RBC Urine 0-2 /HPF (0-2); Squamous Epithelial Cell Urine 0-2 /HPF (0-2); WBC Urine >50 /HPF (0-5)
[2023-12-13 10:58] LABS: Alanine Aminotransferase 11 U/L (0-40); Albumin Level 3.7 g/dL (3.5-5.0); Alkaline Phosphatase 114 U/L (39-117); Anion Gap 14 (12-20); Aspartate Amino Transferase 17 U/L (5-37); Bilirubin Total 0.6 mg/dL (0.0-1.0); Blood Urea Nitrogen 23 mg/dL (9-16); Calcium 9.9 mg/dL (8.4-10.2); Carbon Dioxide 34 mmol/L (22-29); Chloride 96 mmol/L (96-108); Cholesterol 139 mg/dL (<200); Estimated Glomerular Filt Rate > 60; Glucose Fasting 97 mg/dL (60-99); HDL Cholesterol 45 mg/dL (>40); LDL Cholesterol Calculated 86 mg/dL (<100); Potassium 4.5 mmol/L (3.3-5.1); Sodium 139 mmol/L (135-145); Triglycerides 41 mg/dL (<150)
[2023-12-13 11:12] LABS: Prostate Specific Antigen 7.29 ng/mL (<0.05-4.0)
== END 2023-12-13 09:11 | disposition home or self-care (01) ==
LOC: HO.LAB 09:10
PROVIDERS: PCP Internal Medicine; Visit Provider Internal Medicine
DX: J44.9 Chronic obstructive pulmonary disease, unspecified (principal); I73.9 Peripheral vascular disease, unspecified; E78.00 Pure hypercholesterolemia, unspecified; I48.91 Unspecified atrial fibrillation; Z12.5 Encounter for screening for malignant neoplasm of prostate
CPT/HCPCS: 36415; 80053; 80061; 81001; 84153; 85025

== ENCOUNTER 2024-02-18 13:27 | Emergency (ER) | payer OTHER, SELFPAY ==
[2024-02-18] VITALS (8 sets, daily range): BP systolic 120–170; BP diastolic 58–90; PULSE 78–90; RESP 16–20; TEMP 36.6–36.8; O2SAT 75–97; BMI 22.1
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
--- NOTE | ~2024-02-18 | CT_ITS ---
CLINICAL HISTORY: MVa, pain, SOB, hypoxia Exam: CT chest with contrast Comparison: Chest x-ray from 08/18/2023 Findings: No mediastinal hematoma. No dissection flap of the opacified thoracic aorta. Mild pulmonary artery dilatation as can be associated with pulmonary hypertension (4 cm diameter). Imaged timing not sensitive pulmonary embolism. Small mediastinal and hilar lymph nodes are nonspecific and may be reactive. Small left pleural effusion. No pneumothorax accounting for bulla and blebs from severe emphysematous changes. Calcified remnants of old granulomatous process are multifocal. Index airspace disease measures 1.3 cm with spiculation and architectural distortion in the anterior segment of the right upper lobe. Additional pulmonary opacities are multifocal including calcified and likely old fragmentation in the lingula. Airspace disease measuring up to 3 cm in the left lower lobe may be infectious/inflammatory. Mild bilateral rib deformities and/or healed fractures are favored to be old/chronic. Minimal vertebral height losses appear old chronic. Mild curvature sternum appears old. Impression: 1. Multifocal airspace disease. Differential considerations include multifocal pneumonia. Also recommend nonemergent utilization of Fleischner criteria to help guide management for index right upper lobe 1.3 cm lesion with spiculation, if not already achieved. 2. No acute aortic injury or mediastinal hematoma. 3. Severe emphysematous changes. This document has been electronically signed by: Burton White MD on 02/18/2024 19:14:18
--- NOTE | 2024-02-18 13:31 | ECG_ITS ---
Test Reason : CP Blood Pressure : / mmHG Vent. 

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
[2024-02-18 14:59] LABS: MANUAL DIFF FLAG NO
[2024-02-18 15:02] LABS: Basophils Absolute Auto 0.1 X10*3/uL (0.0-0.2); Basophils Percent Auto 0.7 % (0-2); Eosinophils Absolute Auto 0.3 X10*3/uL (0.0-0.4); Eosinophils Percent Auto 3.3 % (0-4); Hematocrit 41.8 % (42.0-52.0); Hemoglobin 13.6 g/dl (14.0-18.0); Imm Gran Abs Auto 0.05 X10*3/uL (0.00-0.03); Imm Gran Pct Auto 0.5 % (0.0-0.4); Lymphocytes Absolute Auto 1.4 X10*3/uL (1.2-4.9); Lymphocytes Percent Auto 13.2 % (20-40); Mean Corpuscular HGB Conc 32.5 g/dl (31.0-36.0); Mean Corpuscular Hemoglobin 29.4 pg (27.0-33.0); Mean Corpuscular Volume 90.5 fL (80.0-98.0); Monocytes Absolute Auto 1.2 X10*3/uL (0.1-1.2); Neutrophils Absolute Auto 7.2 x10*3/uL (2.0-8.3); Neutrophils Percent Auto 70.3 % (45-73); Platelet Count 281 X10*3/uL (160-400); Red Blood Count 4.62 X10*6/uL (4.60-5.80); Red Cell Distribution Width 13.5 % (11.0-16.0); White Blood Count 10.2 X10*3/uL (4.8-10.8)
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
[2024-02-18 15:12] LABS: INTERNATIONAL NORM RATIO 1.5 (0.9-1.1); Prothrombin Time 17.5 SEC (10.9-12.4)
[2024-02-18 15:19] LABS: Alanine Aminotransferase 10 U/L (0-40); Albumin Level 3.4 g/dL (3.5-5.0); Alkaline Phosphatase 109 U/L (39-117); Anion Gap 10 (12-20); Aspartate Amino Transferase 20 U/L (5-37); Bilirubin Total 0.4 mg/dL (0.0-1.0); Blood Urea Nitrogen 16 mg/dL (9-16); Calcium 8.5 mg/dL (8.4-10.2); Carbon Dioxide 35 mmol/L (22-29); Chloride 95 mmol/L (96-108); Creatinine Clr Calc Pharmacy 64.8; Estimated Glomerular Filt Rate > 60; Glucose Random 91 mg/dL (60-115); Lipase 25 U/L (8-78); Magnesium 1.8 mg/dL (1.6-2.6); Potassium 4.3 mmol/L (3.3-5.1); Sodium 136 mmol/L (135-145); Total Protein 6.6 g/dL (6.5-8.0)
--- NOTE | 2024-02-18 15:27 | PC.NURSE ---
Supplemental O2 re-applied as Pt noted to be sating in the high 80's. Good result with 2L via NC.
[2024-02-18 15:50] LABS: Troponin-I High Sensitivity < 2.7 ng/L (<3.5-35.0)
[2024-02-18] MEDS: iohexoL 350 MG/ML 75 ML INFUS..BTL 65 ML IV (18:43)
--- NOTE | 2024-02-18 19:36 | PC.NURSE ---
pt noted to be 75% on room air upon returning to bedside s/p walking to>< from the restroom. the pt endorses sob, educated on the importance of keeping O2 via NC at 2lpm in place for o2 supplementation. Pt with positive improvement s/p reapplication of NC at 2lpm with O2 sat noted to be in the low 90s
[2024-02-18] MEDS: Albuterol/Iprat 2.5/0.5MG 3 ML AMPUL.NEB INHALE (19:39)
--- NOTE | 2024-02-18 20:31 | PC.NURSE ---
RN to bedside to confirm pt's use of O2 via NC at home/baseline and he denies use of supplemental O2 at baseline stating that prior to this visit he did not/does not have O2 at home. PA made aware and pt's supplemental O2 discontinued to assess and monitor O2 saturation on room air
--- NOTE | 2024-02-18 20:38 | PC.NURSE ---
PA-C to bedside to speak with the patient. per family at bedside, the pt is supposed to wear O2 at home but refuses. Pt noted to be 88-89% on room air, speaking in full/complete sentences. pt refusing to stay inpatient at this time, aware of and agreeable to plan for signing out AMA.
[2024-02-18] MEDS: Amoxicillin/Potassium Clav 875 MG TABLET PO (20:57)
[2024-02-18] MEDS: predniSONE 20 MG TABLET 40 MG PO (20:58)
[2024-02-18] MEDS: Doxycycline Monohydrate 100 MG CAPSULE PO (20:58)
== END 2024-02-18 21:15 | disposition left against medical advice (07) ==
PROVIDERS: Nurse Practitioner Family; Emergency Provider Emergency Medicine; PCP Internal Medicine
DX: Z04.1 Encounter for examination and observation following transport accident (principal); J44.1 Chronic obstructive pulmonary disease with (acute) exacerbation; R09.02 Hypoxemia; I10 Essential (primary) hypertension; E78.5 Hyperlipidemia, unspecified; I48.91 Unspecified atrial fibrillation; Z87.891 Personal history of nicotine dependence; Z79.01 Long term (current) use of anticoagulants; Z79.02 Long term (current) use of antithrombotics/antiplatelets; Z79.899 Other long term (current) drug therapy; Z53.29 Procedure and treatment not carried out because of patient's decision for other reasons
CPT/HCPCS: 36415; 70450; 71260; 72125; 80053; 83690; 83735; 84484; 85025; 85610; 93005; 99285; Q9967

== ENCOUNTER → 2024-02-18 13:31 | Outpatient (BNV) | payer MEDICARE, SELFPAY | PROVIDERS: Emergency Provider Emergency Medicine; PCP Internal Medicine; Visit Provider Internal Medicine Cardiovascular Disease | DX: R94.31 Abnormal electrocardiogram [ECG] [EKG] (principal) | CPT/HCPCS: 93010 ==

== ENCOUNTER → 2024-02-18 13:59 | Outpatient (BNV) | payer MEDICARE, SELFPAY | PROVIDERS: Emergency Provider Emergency Medicine; PCP Internal Medicine; Visit Provider Radiology Neuroradiology | DX: S00.93XA Contusion of unspecified part of head, initial encounter (principal); J43.9 Emphysema, unspecified; R91.1 Solitary pulmonary nodule; M48.061 Spinal stenosis, lumbar region without neurogenic claudication | CPT/HCPCS: 70450; 71260; 72125 ==

== ENCOUNTER 2024-03-20 14:06 | Outpatient (REF) | payer MEDICARE, SELFPAY ==
--- NOTE | ~2024-03-20 | PE_ITS ---
EXAMINATION: FLUORINE-18 FDG PET/CT SCAN CLINICAL INFORMATION: Right upper lobe nodule. TECHNIQUE: 60 minutes following the intravenous administration of 15.6 mCi of fluorine 18 FDG, images from the skull base to proximal thigh were obtained using a combined PET/CT scanner with CT scan based attenuation correction. No oral or intravenous contrast was administered. Transverse, coronal, sagittal, and volume reconstruction projections were obtained. The patient's blood glucose as determined by a finger stick, was 89 mg/dL immediately prior to injection. The radiotracer was injected intravenously through left antecubital vein, without any complications. Total CT exam dose-length product 501 mGy-cm. * These CT images were obtained using dose optimization techniques as appropriate, variously including the following: Automated exposure control * Adjustment of mA and/or kV according to patient size (this includes techniques or standardized protocols for targeted exams where dose is matched to indication/reason for exam; i.e. extremities or head) * Use of iterative reconstruction technique COMPARISON: CT chest 02/18/2024 FINDINGS: HEAD AND NECK: There is nonspecific abnormal activity seen in the left mandible last molar area likely related to inflammatory process or dental abscess. Correlate clinically. No large intracranial hemorrhage, acute territorial infarct or significant shift of midline structures. CHEST: Ports and Devices: None Lungs: There is diffuse emphysematous changes of both lungs with chronic apical parenchymal pleural thickening and scarring. Bullous changes are seen in right upper lobe. There is trace metabolic activity seen in right upper lobe anterior segment scarring SPECTRAL SCIENTIST background. No metabolically active lymph nodes in mediastinum or axilla. 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 Some of the plaques have mild metabolic activity especially the left lingular plaque on axial slice 173/2. There is no pleural effusion. Lymph Nodes: No tracer-avid mediastinal, hilar or internal mammary or axillary lymphadenopathy. Mediastinum: There is no significant pericardial effusion/thickening. Breasts/Chest Wall: No abnormal radiotracer uptake. ABDOMEN/PELVIS: No tracer activity seen in the abdomen or pelvis. Liver/Biliary System: No focal tracer-avid liver lesion. The gallbladder appears unremarkable. Pancreas: Normal. Spleen: No abnormal radiotracer uptake. No evidence of splenomegaly. Adrenal Glands: No abnormal radiotracer uptake. Kidneys: No hydronephrosis, hydroureter or renal calculi bilaterally. Bowel: There is moderate stool seen throughout the colon without significant distention. Few scattered colonic diverticuli are noted without diverticulitis.. The small bowel loops are normal caliber. Appendix is not visualized. There is no free air or free fluid. Lymph Nodes: No tracer avid retroperitoneal, mesenteric or pelvic and/or groin lymphadenopathy. Pelvic Organs: The urinary bladder is underdistended. The prostate gland is normal size. MUSCULOSKELETAL: There is abnormal FDG activity right anterior second rib which corresponds to a new fracture. Also visualized is moderate increased activity in mid to lower sternum. No lesion is seen however there is mild metabolic activity in the sternum VASCULAR: There is mild atherosclerotic changes of the thoracic arch. No aneurysmal dilatation. PET/PET CT fusion skull to thigh IMPRESSION: No abnormal FDG activity seen in the index lesion right upper lobe as was suspected on the previous CT chest 02/10/2024. In fact there is no abnormal metabolic activity seen in the lung parenchyma, mediastinum or the axilla. There is mild metabolic activity seen in the right anterior second rib which corresponds to a healing fracture and mid sternum were normal lesion is visualized on CT. This may represent area of bone contusion however metastatic lesion cannot be excluded but considered less likely. There is emphysema and chronic interstitial lung changes in both lungs. 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 The lingular calcified pleural plaque shows mild metabolic activity e. Moderate focal FDG activity left posterior mandible along the last molar tooth. Question inflammatory process. Correlate with clinical symptoms and CT if patient has any pain. Electronically signed by: Jan Dunne MD 03/22/2024 07:34 AM [facility]
--- OUTSIDE RECORDS SUMMARY | 2024-03-20 15:05 | XMS_ITS | Patient Health Record ---
[facility] Organization [facility] Address [address] [place] [address] Care Team Providers Care Microbiology Laboratory Manager Name Role Phone Vicente Cifuentes MD Primary Care Provider Leo Abreu Unavailable [phone] Allergies No Known Allergies Reason For Referral No Information Medications Medication SIG (Take, Route, Frequency, Duration) Notes Start Date End Date Status Physical Therapy . . . 2-3x/week for 3- 4 weeks Active Eliquis 5 MG as directed Orally Active Furosemide 20 MG 1 tablet Orally Once a day Active Albuterol Active Spiriva HandiHaler A ctive Spironolactone 25 MG 1 tablet Orally Active Albuterol Sulfate (2.5 MG/3ML) 0.083% 3 mL as needed Inhalation every 6 hrs Active dilTIAZem HCl ER 240 MG 1 tablet Orally Once a day Active Metoprolol Succinate 100 MG 1 capsule Or ally Once a day Active Pantoprazole Sodium 40 MG 1 tablet Orall y Once a day Active dilTIAZem HCl ER 120 MG 1 capsule Orally Twice a day Active PreserVision AREDS 2 Active Atorvastatin Calcium 20 MG 1 tablet Oral ly Once a day Active rOPINIRole HCl 2 MG 1 tablet 1 to 3 hour s before bedtime Orally Once a day Active Night Splint AFO - L1930 as directed Active Social History Tobacco Use: Social History Observation Description Date Details (start date - stop date) Former Smoker NA - NA Tobacco Use/Smoking Question Answer Notes Are you a: former smoker Additional Findings: Tobacco Non-User Current no n-smoker Alcohol Screen Question Answer Notes Did you have a drink containing alcohol in the p ast year? No Points 0 Interpretation Negative Tobacco use other than smoking: Question Answer Notes Are you an other tobacco user? No Vital Signs Height 5ft 11in in 10/27/2023 Weight 160 lbs 10/27/2023 BMI 22.31 kg/m2 10/27/2023 Encounters Encounter Location Date Provider Diagnosis [address] [address] 09/21/2023 Leo Bella Other viral warts B07.8 ; Pain in left foot M79.672 ; Pain in right foot M79.671 ; Plantar fascial fibromatosis M72.2 ; Metatarsalgia, left foot M77.42 ; Metatarsalgia, right foot M77.41 ; Tinea unguium B35.1 and Ingrowing nail L60.[address] [address] 10/27/2023 Leo Bella Other viral warts B07.8 ; Pain in left foot M79.672 ; Pain in right foot M79.671 ; Plantar fascial fibromatosis M72.2 ; Metatarsalgia, left foot M77.42 ; Metatarsalgia, right foot M77.41 ; Tinea unguium B35.1 and Ingrowing nail L60.[address] [address] 09/21/2023 Leo Bella Assessments Encounter Date Diagnosis (ICD Code) Assessment Notes Treatment Notes Treatment Clinical Notes Section Notes 09/21/2023 Other viral warts (ICD-10 - B07.8) 09/21/2023 Pain in left foot (ICD-10 - M79.672) 10/27/2023 Other viral warts (ICD-10 - B07.8) 10/27/2023 Pain in left foot (ICD-10 - M79.672) 10/27/2023 Pain in right foot (ICD-10 - M79.671) 09/21/2023 Pain in right foot (ICD-10 - M79.671) 09/21/2023 Plantar fascial fibromatosis (ICD-10 - M72.2) 10/27/2023 Plantar fascial fibromatosis (ICD-10 - M72.2) 10/27/2023 Metatarsalgia, left foot (ICD-10 - M77.42) 09/21/2023 Metatarsalgia, left foot (ICD-10 - M77.42) 09/21/2023 Metatarsalgia, right foot (ICD-10 - M77.41) 10/27/2023 Metatarsalgia, right foot (ICD-10 - M77.41) 10/27/2023 Tinea unguium (ICD-10 - B35.1) 09/21/2023 Tinea unguium (ICD-10 - B35.1) 09/21/2023 Ingrowing nail (ICD-10 - L60.0) 10/27/2023 Ingrowing nail (ICD-10 - L60.0) Plan Of Treatment Pending Test Test Name Order Date X ray : Foot, left 3V 09/21/2023 X ray : Foot, right 3V 09/21/2023 Insurance Providers Payer Name Payer Address Payer Phone Subscriber Number Group Number Insured Name Patient Relationship to Insured Coverage Start Date Coverage End Date [employer] [place] [employer] Ad[employer]age One [facility] [address] [place] [address] [id number] Mac Marsh Self - patient is the insured Medical (General) History Medical History History ICD Code Angina asthma Back,Hip,and Knee pain Broken bones Cancer Cataracts Headaches/Migraines Hepatitis Lung disease Macular degeneration Tuberculosis Chicken pox Transfusions Surgical History Surgery Date(Month/Year) carpal tunnel surgery 10/14/22 cancer surgery 2009
--- OUTSIDE RECORDS SUMMARY | 2024-03-20 15:05 | XMS_ITS | Patient Health Record ---
Author Organization Yony Reynaga III, MD Address [address] [place] [address] [place] [address] Care Team Providers Care Assistant Film Editor Name Role Phone Vicente Cifuentes MD Primary Care Provider Yony Tinsley Unavailable [phone] Yony Reynaga III, MD Unavailable Allergies Allergen (clinical drug ingredient) Drug/Non Drug Allergy documented on EMR Reaction Allergy Type Onset Date Status No Known Drug Allergy Unknown Drug Allergy Active Reason For Referral No Information Medications Medication SIG (Take, Route, Frequency, Duration) Notes Start Date End Date Status rOPINIRole HCl 2 MG 1 tablet 1 to 3 hour s before bedtime Orally Once a day Active PreserVision AREDS 2 - as directed Orall y Twice a day Active Metoprolol Succinate ER 100 MG 1 tablet Orally Once a day Active Furosemide 20 MG TAKE 1 TABLET BY KATEY TH TWICE DAILY Oral Active Spiriva Respimat 2.5 MCG/ACT INHALE 1 SP RAY BY MOUTH EVERY DAY DIRECTED Inhalation Active Atorvastatin Calcium 20 MG TAKE 1 TABLET BY MOUTH EVERY EVENING Oral Active dilTIAZem HCl ER Beads 240 MG TAKE 1 CAPSULE BY MOUTH EVERY MORNING Oral Active Eliquis 5 MG as directed Orally Active Pantoprazole Sodium 40 MG 1 tablet 1 dyana r before morning meal Orally Once a day Active Albuterol Sulfate HFA 108 (90 Base) MCG/ACT 1 puff as needed Inhalation every 4 hrs Active Albuterol Sulfate (2.5 MG/3ML) 0.083% 3 mL as needed Inhalation every 6 hrs Active Spironolactone 25 MG 1 tablet Orally Active Social History Tobacco Use: Social History Observation Description Date Details (start date - stop date) Former Smoker NA - NA Sex Assigned At : Social History Observation Description Sex Assigned At Male Tobacco Control (Standard) Question Answer Notes Tobacco use: Former smoker How long has it been since you last smoked? Grea ter than 10 years Additional Findings: Tobacco non-user Ex-cigaret te smoker AUDIT-C (Standard) Question Answer Notes Did you have a drink containing alcohol in the p ast year? No Points 0 Interpretation Negative Problems Problem Type SNOMED Code ICD Code Onset Dates Problem Status W/U Status Risk Notes Problem 3770146 Former smoker (Z87.891) Active confirmed He is a former smoker. We made a plan to resist relapsing times stress or illness. Problem 265860804 Mixed hyperlipidemia (E78.2) Active confirmed Problem 826272827 Anticoagulated (Z79.01) Active confirmed He has had no recent bleeding. He is to be anticoagulat ed. Problem 363090672 Peripheral vascular disease (I73.9) Active confirmed Problem 45322278 Restless leg syndrome (G25.81) Active confirmed Problem 991971587 Chronic GERD (K21.9) Active confirmed Problem 292265584 Chronic atrial fibrillation (I48.20) Active confirmed He is in an irregularly irregular rhythm today. Denies any recent chest pain. Problem 595584153 Right upper lobe pulmonary nodule (R91.1) Active confirmed The nodule being 1.3 cm will be evaluated with a PET CT scan. I have also ordered pulmonary function tests. 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 He was breathing comfortably with an oxygen saturation 97%. He was continuing current medications. 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) Active confirmed Vital Signs Heart Rate 56 /min 03/14/2024 Temperature 97.4 degrees Fahrenheit 03/14/2024 Oximetry 97 % 03/14/2024 Blood pressure diastolic 63 mm Hg 03/14/2024 Height 5' 10 in 03/14/2024 Blood pressure systolic 119 mm Hg 03/14/2024 Weight 157 lbs 03/14/2024 BMI 22.52 kg/m2 03/14/2024 Encounters Encounter Location Date Provider Diagnosis Yony Reynaga III, MD [address] [place] [address] [place] [address] 03/14/2024 Yony Reynaga Right upper lobe pulmonary nodule R91.1 ; COPD, moderate J44.9 ; Chronic atrial fibrillation I48.20 ; Anticoagulated Z79.01 and Former smoker Z87.891 Assessments Encounter Date Diagnosis (ICD Code) Assessment Notes Treat ment Notes Treatment Clinical Notes 03/14/2024 Right upper lobe pulmonary nodule (ICD-10 - R91.1) The nodule being 1.3 cm will be evaluated with a PET CT scan. I have also ordered pulmonary function tests. 03/14/2024 COPD, moderate (ICD-10 - J44.9) He is a nonsmoker but has COPD. He was breathing comfortably with an oxygen saturation 97%. He was continuing current medications. 03/14/2024 Chronic atrial fibrillation (ICD-10 - I48.20) He is in an irregularly irregular rhythm today. Denies any recent chest pain. 03/14/2024 Anticoagulated (ICD-10 - Z79.01) He has had no recent bleeding. He is to be anticoagulated. 03/14/2024 Former smoker (ICD-1 0 - Z87.891) He is a former smoker. We made a plan to resist relapsing times stress or illness. Plan Of Treatment Pending Test Test Name Order Date PET CT SKULL TO THIGHS 03/14/2024 PFT with DLCO 03/14/2024 Insurance Providers Payer Name Payer Address Payer Phone Subscriber Number Group Number Insured Name Patient Relationship to Insured Coverage Start Date Coverage End Date [address] [place] [address] [id number] LIZ WASHINGTON Self - patient is the insured MEDICARE NGS [address] [facility] [place] [phone] [id number] LIZ WASHINGTON Self - patient is the insured Medical (General) History Medical History History ICD Code Right upper lobe 1.3 cm spiculated nodul e COPD Atrial fibrillation Pripheral edema GERD Carotid dicease Peripheral artery dicease Restless leg syndrome Hyperlipidemia Arthritis of the knee Anticoagulated with apixaban
--- OUTSIDE RECORDS SUMMARY | 2024-03-20 15:05 | XMS_ITS ---
Author Organization [facility] Address [address] [place] [address] Care Team Providers Care Air Brush Decorator Name Role Phone Vicente Cifuentes MD Primary Care Provider Leo Abreu [phone] REASON FOR VISIT dispense [id number] Encounters Encounter Location Date Provider Diagnosis [facility] [address] [place] [address] 09/21/2023 Leo Bella Plan Of Treatment No Information Progress Notes * Mac WASHINGTON ADOB: [birth year] (83 yo M)Acc No.[id number]:09/21/2023 Patient:?Mac Washington :1940???Age:83 Y???Sex:Male Address:[address] [place] [id number] * true * Date:? Generated for Patricki benny/Kvng/eTransmitting on:?03/20/2024 03:05 PM EST
--- OUTSIDE RECORDS SUMMARY | 2024-03-20 15:05 | XMS_ITS ---
Author Organization [facility] Address [address] [place] [address] Care Team Providers Care Body Technician Name Role Phone Vicente Cifuentes MD Primary Care Provider Leo Abreu Unavailable [phone] Allergies No Known Allergies REASON FOR VISIT Last PCP Visit: 08/24/2023, Dago(s), Heel pain Medications Medication SIG (Take, Route, Frequency, Duration) Notes Start Date End Date Status Eliquis 5 MG as directed Orally Active Atorvastatin Calcium 20 MG 1 tablet Oral ly Once a day Active Physical Therapy . . . 2-3x/week for 3- 4 weeks 09/21/2023 Active Metoprolol Succinate 100 MG 1 capsule Or ally Once a day Active Night Splint AFO - L1930 as directed 09/21/2023 Active Pantoprazole Sodium 40 MG 1 tablet Orall y Once a day Active Spiriva HandiHaler A ctive Albuterol Active dilTIAZem HCl ER 240 MG 1 tablet Orally Once a day Active dilTIAZem HCl ER 120 MG 1 capsule Orally Twice a day Active Albuterol Sulfate (2.5 MG/3ML) 0.083% 3 mL as needed Inhalation every 6 hrs Active Spironolactone 25 MG 1 tablet Orally Active Furosemide 20 MG 1 tablet Orally Once a day Active rOPINIRole HCl 2 MG 1 tablet 1 to 3 hour s before bedtime Orally Once a day Active PreserVision AREDS 2 Active Social History Tobacco Use: Social History [...] No Vital Signs Height 5ft 11in in 09/21/2023 Weight 160 lbs 09/21/2023 BMI 22.31 kg/m2 09/21/2023 Encounters Encounter Location Date Provider Diagnosis [facility] [place] [address] [place] [address] 09/21/2023 Leo Bella Other viral warts B07.8 ; Pain in left foot M79.672 ; Pain in right foot M79.671 ; Plantar fascial fibromatosis M72.2 ; Metatarsalgia, left foot M77.42 ; Metatarsalgia, right foot M77.41 ; Tinea unguium B35.1 and Ingrowing nail L60.0 Assessments Encounter Date Diagnosis (ICD Code) Assessment Notes Treatment Notes Treatment Clinical Notes Section Notes 09/21/2023 Other viral warts (ICD-10 - B07.8) 09/21/2023 Pain in left foot (ICD-10 - M79.672) 09/21/2023 Pain in right foot (ICD-10 - M79.671) 09/21/2023 Plantar fascial fibromatosis (ICD-10 - M72.2) 09/21/2023 Metatarsalgia, left foot (ICD-10 - M77.42) 09/21/2023 Metatarsalgia, right foot (ICD-10 - M77.41) 09/21/2023 Tinea unguium (ICD-10 - B35.1) 09/21/2023 Ingrowing nail (ICD-10 - L60.0) Plan Of Treatment Medication Medication Name Sig Start Date Stop Date Notes Physical Therapy . . . 2-3x/week for 3-4 weeks 09/21/2023 Night Splint AFO - L1930 as directed 09/21/2023 Pending Test Test Name Order Date X ray : Foot, left 3V 09/21/2023 X ray : Foot, right 3V 09/21/2023 Next Appt Details Follow Up: 4 Weeks, Reason: Procedure Notes * Category Sub-Category Detail Notes Wart Treatment Procedure Verrucae(s) were debrided to pin-point bleeding margins with sterile surgical blade (53591), silver nitrate chemocautery applied, recomm. Wartstick 40 percent Salicylic acid application under occlusion as directed Progress Notes * Mac WASHINGTON ADOB: [birth year] (83 yo M)Acc No.[id number]:09/21/2023 Progress Notes Patient:?Mac Washington Provider:?Leo Bella DPM :1940???Age:83 Y???Sex:Male Con e:09/21/2023 Address:[address] [place] [address], [facility] [place], [id number] Pcp:Vicente Cifuentes MD Subjective: * Chief Complaints: * ??? Last PCP Visit: 4Wart(s)Heel pain * HPI: ???Wart:?Pt States Last PCP Visit:?Date:?08/24/2023 ???Heel pain:?Nature:?sharp pain.?Location:?Proximal plantar aspect of Heel, B/L, RIGHT greater than Left.?Duration:?more than six months .?Onset/Cause:?unknown.?Course:?worse.?Aggravated:?walking first thing in the morning/after rest.?Treatments:?none.?Severity/Quality:?States 9 out of 10--rt and , States 5 out of 10--lt.?Misc:?pt has worn cowboy boots all his adult life.? * ROS:?General/Constitutional:?Nausea?denies, denies, denies.?Vomiting?denies, denies, denies.?Hunger Thirst?denies, denies, denies.?Loss appetite?denies, denies, denies.?Chills?denies, denies, denies.?Fatigue?denies, denies, denies.?Fever?denies, denies, denies.?Night Sweats?admits, denies, denies.?Unexplained weight loss?denies, denies, denies.?Unexplained weight gain?denies, denies.?Ophthalmologic:?Blurred vision?denies.?Red eye?denies.?HEENTM:?Dentures?admits, denies, denies.?Dizziness?denies, denies, denies.?Glasses/contacts?admits, denies, denies.?Retinopathy?denies, denies, denies.?Blurred/double vision?admits, denies, denies.?TMJ?denies, denies, denies.?Discharge/drainage?denies, denies, denies.?Implants?denies, denies, denies.?Sore throat?denies, denies.?Dental implants?denies, denies.?Hard of hearing ?admits, denies, denies.?Difficulty chewing/swallowing/speaking?admits, denies, denies.?Nose bleeds?denies, denies, denies.?Sore mouth?denies, denies, denies.?Swollen glands?denies.?Respiratory:?On Oxygen?denies, denies, denies.?Pneumonia/pleurisy?denies, denies, denies.?Bronchitis?denies, denies, denies.?Emphysema?admits, denies, denies.?Coughing?denies, denies, denies.?Cough blood?denies, denies, denies.?Shortness of breath?admits, denies, denies.?Wheezing?admits, denies, denies.?Cardiovascular:?Pacemaker?denies, denies, denies.?MVP?denies, denies, denies.?WPW?denies, denies, denies.?CHF?denies, denies, denies.?Heart attack?denies, denies, denies.?Septal defect?denies, denies, denies.?Rapid beat denies, denies, denies.?Chest pain ?denies, denies, denies.?Atrial Fib.?admits, denies, denies.?Murmur/Palpitations?denies, denies, denies.?Gastrointestinal:?Hemorrhoids?denies, denies, denies.?Stomach/Abdominal pain?denies, denies, denies.?Dark blood stool?denies, denies, denies.?Irritable bowel ?denies, denies, denies.?Constipation?denies, denies, denies.?Diarrhea denies, denies, denies.?Vomiting?denies.?Hematology:?Swelling?denies, denies, denies.?Clots?denies, denies.?Varicose Veins?denies, denies.?Bruising?denies, denies, denies.?Bleeding problem?denies, denies, denies.?Genitourinary:?Blood urine?denies, denies, denies.?Frequent/Painfu/urination/bladder control?denies, denies, denies.?Kidney stones?denies, denies, denies.?Infection (UTI)?denies, denies, denies.?Nephropathy?denies, denies, denies. sex trans dis (STD)?denies, denies.?Prostate?denies, denies.?Musculoskeletal:?Hammertoes?denies, denies, denies.?Bunions?denies, denies, denies.?Scoliosis/kyphosis?denies.?Back Pain?admits, denies.?Muscle Cramps/ Resting?admits, denies.?Muscle cramps / walking?admits, denies, denies. Generalized aches and pains?admits, denies, denies.?Weakness?denies, denies, denies.?Integ.:?Haynes?denies, denies, denies.?Scars?denies, denies, denies.?Corns/calluses?denies, denies, denies.?Ingrown nails?denies, denies, denies.?Painful nails?admits, denies, denies.?Open Sores?denies, denies.?Rashes?denies, denies, denies.?Neurologic:?Difficulty sleeping?admits, denies, denies.?Bipolar?denies.?Brain disorder?denies, denies, denies.?Numbness?denies, denies.?Balance trouble?denies, denies, denies.?Confusion?denies, denies, denies.?Fainting/blackouts?denies, denies, denies.?Headache?denies.?Tingling?denies, denies.?Tremors?denies, denies, denies.? * Medical History:? * Surgical History:?carpal amina jose surgery 10/14/22cancer surgery 2009 * Hospitalization/Major Diagno stic Procedure:?Denies Past Hospitalization * Family History:?Mother: dece ased, Cancer, diagnosed with Other malignant neoplasm of unspecified site.?Father: , Stroke, diagnosed with Unspecified heart disease.? * Social History:?Tobacco Use:?Tobacco Use/Smoking?Are you a:?former smoker ?Additional Findings: Tobacco Non-User?Current non-smoker ?Tobacco use other than smoking?Are you an other tobacco user??No ???Drugs/Alcohol:?Drugs?Have you used drugs other than those for medical reasons in the past 12 months??No ?Alcohol Screen?Did you have a drink containing alcohol in the past year??No ?Points?0 ?Interpretation?Negative ???Miscellaneous:?Caffeine: yes, frequency: 6 a day. ?Marital status: . ?Occupation: Retired. * Medications:?TakingPreserVis ion AREDS 2 rOPINIRole HCl 2 MG Tablet 1 tablet 1 to 3 hours before bedtime Orally Once a dayFurosemide 20 MG Tablet 1 tablet Orally Once a daySpironolactone 25 MG Tablet 1 tablet Orally Albuterol Sulfate (2.5 MG/3ML) 0.083% Nebulization Solution 3 mL as needed Inhalation every 6 hrsAlbuterol Spiriva HandiHaler Pantoprazole Sodium 40 MG Tablet Delayed Release 1 tablet Orally Once a daydilTIAZem HCl ER 120 MG Capsule Extended Release 12 Hour 1 capsule Orally Twice a daydilTIAZem HCl ER 240 MG Tablet Extended Release 24 Hour 1 tablet Orally Once a dayMetoprolol Succinate 100 MG Capsule ER 24 Hour Sprinkle 1 capsule Orally Once a dayAtorvastatin Calcium 20 MG Tablet 1 tablet Orally Once a dayEliquis 5 MG Tablet as directed Orally Medication List reviewed and reconciled with the patientTaking PreserVision AREDS 2 Taking rOPINIRole HCl 2 MG Tablet 1 tablet 1 to 3 hours before bedtime Orally Once a dayTaking Furosemide 20 MG Tablet 1 tablet Orally Once a dayTaking Spironolactone 25 MG Tablet 1 tablet Orally Taking Albuterol Sulfate (2.5 MG/3ML) 0.083% Nebulization Solution 3 mL as needed Inhalation every 6 hrsTaking Albuterol Taking Spiriva HandiHaler Taking Pantoprazole Sodium 40 MG Tablet Delayed Release 1 tablet Orally Once a dayTaking dilTIAZem HCl ER 120 MG Capsule Extended Release 12 Hour 1 capsule Orally Twice a dayTaking dilTIAZem HCl ER 240 MG Tablet Extended Release 24 Hour 1 tablet Orally Once a dayTaking Metoprolol Succinate 100 MG Capsule ER 24 Hour Sprinkle 1 capsule Orally Once a dayTaking Atorvastatin Calcium 20 MG Tablet 1 tablet Orally Once a dayTaking Eliquis 5 MG Tablet as directed Orally Medication List reviewed and reconciled with the patient * Allergies:?N.K.D.A.yes[Aller gies Verified] Objective: * Vitals:?Ht: 5ft 11in, Wt: 16 0, BMI: 22.31, Shoe size: 10, Ht-cm: 180.34 cm, Wt- k.57 kg. * Examination: ???Dermatologic: ?SKIN FINDINGS:?Skin exam reveals normal texture, elasticity, and tugor. There are no masses. The interspaces are clear.?VERRUCA:? Reveals a Single , multi-loculated , mosaic-patterned, round, raised, flat-topped, petechial bleeding papule(s), with cauliflower appearance and interruption of skin lines, pain to lateral compression, and size estimated at __2-3__ mm diameter, plantar Forefoot, RIGHT.?General Examination: ?GENERAL APPEARANCE:?pleasant, alert, well nourished, well developed, well hydrated, with good attention to hygene/body habitus, and in no acute distress.?ORIENTED:?person,place, and time.?Neurological: ?SENSORY:?Neurological exam reveals intact sensorium, pain sensation normal, vibration sensation intact, pinprick sensation is normal in the lower extremities, pt denies, anesthesia, burning, paresthesia, tingling, B/L, Neurological exam demonstrates pop plantar mtpj's naima and naima heels.?TINEL'S COMPRESSION:?Negative tarsal tunnel, jesus pedis, and medial calcaneal nerves, B/L.?BABINSKI REFLEX:?Absent, B/L.?Vascular: ?DP PULSES:? 0/4, B/L.?PT PULSES:? 0/4, B/L.?CAPILLARY FILL TIME:?3 secs. per digit, B/L.?SKIN TEMPERTURE GRADIENT OF THE LOWER EXTERMITIES:?warm to cool, proximal to distal, B/L.?HAIR GROWTH/TEXTURE/ELASTICITY/TURGOR:? decreased, B/L.?EDEMA:? 3/4, pitting, B/L, Ankle(s).?Heel Pain: ?INSPECTION REVEALS:?Pain on Palpation to Plantar Fascia med. and central bands, intrinsic musc., infra-calcaneal bursa, and med calc tubercle, B/L--right more severe than left.?Orthopedic: ?MUSCLE STRENGTH:?5/5 all groups in a symmetrical fashion B/L.?GAIT ABNORMALITY:?pronated, abducted, B/L.?X-Rays - IMAGING REPORT: ?Clinical Indication(s):? Evaluate Biomechanical Deformity.?Views:? 3 views of Foot, B/L.?Nails: ?NAILS are:? Elongated, overgrown, dystrophic, lytic, greater than 3mm thick, discolored and friable with crumbly malodorous subungual debris, with pain on palpation, 1-5 B/L; pop t5 cuticle.? * Physical Examination:?L1930 Nightsplint AFO:?Application of static AFO, including soft interface material, adjustable for fit/ positioning/ pressure reduction, may be used for minimal ambulation, prefabricated, including fitting and adjustment:?Large, Right.? 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 Plan: * Treatment: * Procedures:?Wart Treatment:?Procedure?Verrucae(s) were debrided to pin-point bleeding margins with sterile surgical blade (80064), silver nitrate chemocautery applied, recomm. Wartstick 40 percent Salicylic acid application under occlusion as directed.? * Procedure Codes:?82218 Wart Destruction, 1-14, Modifiers: [id number] X-RAY EXAM OF RIGHT FOOT 3V, Modifiers: 26 , [id number] X-RAY EXAM OF LEFT FOOT 3V, Modifiers: 26 , [id number] AFO PLASTIC/OTH MATERIAL PREFAB, Modifiers: RT * Preventive Medicine:? ??Counseling:?Discussion:?-04: Office or other outpatient visit for the evaluation and management of a new patient, which required a medically appropriate history and/or examination and MODERATE level of DECISION MAKING for: 1 OR MORE CHRONIC PROBLEM(S) THATS WORSENING, 2 STABLE CHRONIC PROBLEMS, A NEWLY DIAGNOSED PROBLEM WITH UNCERTAIN PROGNOSIS, AN ACUTE COMPLICATED INJURY WITH MULTIPLE TREATMENT OPTIONS, OR AN ACUTE PROBLEM WITH ACCOMPANYING SYSTEMIC SYMPTOMS, THAT POSE(S) A MODERATE RISK OF MORBIDITY. THIS CONDITION MAY ALSO INCLUDE RX DRUG MANAGEMENT, OR A DECISON FOR MINOR SURGERY. The visit on the day of the encounter encompassed interpreting the data and educating the patient as to the nature of their condition, treatment options available according to their individual PMH, meds, allergies, and overall health/living conditions, as well as any potential risks or complications that may occur from a failure to adhere to, and participate in, the recommended course of therapy. The discussion included a complete verbal, and/or written explanation of the examination results, any x-rays taken, the proposed diagnosis, and outline of the treatment plan. A schedule for future care needs was also explained. The patient verbalized an understanding of the instructions at this time and agreed to be an active participant in their treatment. If the patient should think of any questions or concerns after the visit, I have encouraged the patient to call the office; I advised pt about total nail bx t5 for relief of painful diseased nail and he is not compliant with this today.?Heel pain:?FASCIITIS: I explained to the patient the possible etiologies of Plantar Fasciitis including foot type/shoegear/activity level/exercise routine and the risks/benefits of all the different treatment options for heel pain including: No treatment at all, Rest, Ice, NSAIDs(only if well tolerated after meals), New/supportive Shoegear, Strappings and Tapings, Stretching exercises, Deep Tissue Massage, Heel cups/cushions, Arch support/shoe inserts, Custom orthoses, Topical analgesics including Aspercream/Voltaren gel, Night splint AFO for am stiffness, Cortisone injection therapy, Cast boot with crutches/cane/or walker for assisted ambulation, Physical Therapy, EPAT/ESWT, Interfil injection therapy, as well as surgical [place]/Endoscopic Fasciitomy surgical procedures if needed. Recommendations were made to limit barefoot walking, eliminate wearing nonsupportive shoegear (i.e. flip-flops or sandals, or a shoe with an easily bendable, foldable, or twistable sole) and wear shoegear with a good solid sole, a supportive arch, and plenty of room for an insert/orthotic if necessary. If wearing sandals was required by the patient, we recommended orthopedic sandals such as Orthoheel or Birkenstock even while in the home. If the patient wore heels in the past, we recommended they continue, but eliminate the use of flats. The advantages and disadvantages of each option were discussed and the patients questions re: types of shoegear, custom vs prefabricated inserts, activity level, PO vs Topical medications (and their respective potential complications/drug interactions/side effects), and consistency in home treatment regimens for optimal success were answered to their satisfaction. Literature detailing plantar fasciitis and the various treatment options were dispensed and reviewed.? * Follow Up:?4 Weeks * Images: * Sign off status: Completed true * Provider:?Leo Bella DPM Date:? 024 Generated for Nancy zapata/Kvng/Avery on:?03/20/2024 03:05 PM EST History and Physical Notes * HPI (History of Present Illness) Category Sub-Category Detail Notes Category Not es Heel pain Duration: more than six months Nature: sharp pain Severity/Quality: States 9 out of 10-- rt and , States 5 out of 10--lt Location: Proximal plantar asp ect of Heel, B/L, RIGHT greater than Left Onset/Cause: unknown Aggravated: walking first thing in the morning/after rest Course: worse Treatments: none Misc: pt has worn cowboy b oots all his adult life Wart Pt States Last PCP Visit: Date:: 08/24/2023 Physical Examination Category Sub-Category Detail Notes Section Note s L1930 Nightsplint AFO Application of sta tic AFO, including soft interface material, adjustable for fit/ positioning/ pressure reduction, may be used for minimal ambulation, prefabricated, including fitting and adjustment: Large, Right Examination Category Sub-Category Detail Notes Category Not es Heel Pain INSPECTION REVEALS: Pain on Palp ation to Plantar Fascia med. and central bands, intrinsic musc., infra-calcaneal bursa, and med calc tubercle, B/L--right more severe than left Neurological SENSORY: Neurological exa m reveals intact sensorium, pain sensation normal, vibration sensation intact, pinprick sensation is normal in the lower extremities, pt denies, anesthesia, burning, paresthesia, tingling, B/L, Neurological exam demonstrates pop plantar mtpj's naima and naima heels BABINSKI REFLEX: Absent, B/L TINEL'S COMPRESSION: Negative tarsal amina jose, jesus pedis, and medial calcaneal nerves, B/L Dermatologic SKIN FINDINGS: Skin exam reveal s normal texture, elasticity, and tugor. There are no masses. The interspaces are clear VERRUCA: Reveals a Single , m ulti-loculated , mosaic-patterned, round, raised, flat-topped, petechial bleeding papule(s), with cauliflower appearance and interruption of skin lines, pain to lateral compression, and size estimated at __2-3__ mm diameter, plantar Forefoot, RIGHT Orthopedic GAIT ABNORMALITY: pronated, abducted, B/L MUSCLE STRENGTH: 5/5 all groups in a symmetrical fashion B/L General Examination GENERAL APPEARANCE: pleasant , alert, well nourished, well developed, well hydrated, with good attention to hygene/body habitus, and in no acute distress ORIENTED: person,place, and ti me Vascular DP PULSES (B): 0/4, B/L PT PULSES (B): 0/4, B/L CAPILLARY FILL TIME: 3 secs. per digit, B/L TEMPERTURE GRADIENT (C): warm to cool, p roximal to distal, B/L TROPHIC CONDITION-TEXTURE/ELASTICITY/TURGOR/HAIR GROWTH (B): decreased, B/L EDEMA (C): 3/4, pitting, B/L, A nkle(s) Nails NAILS are: Elongated, overg rown, dystrophic, lytic, greater than 3mm thick, discolored and friable with crumbly malodorous subungual debris, with pain on palpation, 1-5 B/L; pop t5 cuticle X-Rays - IMAGING REPORT Views: 3 views of Foot, B/L Clinical Indication(s): Evaluate Biomech anical Deformity
--- OUTSIDE RECORDS SUMMARY | 2024-03-20 15:06 | XMS_ITS ---
Author Organization Yony Reynaga III, MD Address [address] [place] [address] [place] [address] Care Team Providers Care Foundry Helper Name Role Phone Vicente Cifuentes MD Primary Care Provider Yony Tinsley Unavailable [phone] Yony Reynaga III, MD [phone] Allergies Allergen (clinical drug ingredient) Drug/Non Drug Allergy documented on EMR Reaction Allergy Type Onset Date Status No Known Drug Allergy Unknown Drug Allergy Active REASON FOR VISIT spiculated RLL nodule 1.3cm, Former smoker Medications Medication SIG (Take, Route, Frequency, Duration) Notes Start Date End Date Status Furosemide 20 MG TAKE 1 TABLET BY KATEY TH TWICE DAILY Oral Active Spiriva Respimat 2.5 MCG/ACT INHALE 1 SP RAY BY MOUTH EVERY DAY DIRECTED Inhalation Active Atorvastatin Calcium 20 MG TAKE 1 TABLET BY MOUTH EVERY EVENING Oral Active dilTIAZem HCl ER Beads 240 MG TAKE 1 CAPSULE BY MOUTH EVERY MORNING Oral Active Eliquis 5 MG as directed Orally Active rOPINIRole HCl 2 MG 1 tablet 1 to 3 hour s before bedtime Orally Once a day Active Pantoprazole Sodium 40 MG 1 tablet 1 dyana r before morning meal Orally Once a day Active Albuterol Sulfate HFA 108 (90 Base) MCG/ACT 1 puff as needed Inhalation every 4 hrs Active Albuterol Sulfate (2.5 MG/3ML) 0.083% 3 mL as needed Inhalation every 6 hrs Active Spironolactone 25 MG 1 tablet Orally Active PreserVision AREDS 2 - as directed Orall y Twice a day Active Metoprolol Succinate ER 100 MG 1 tablet Orally Once a day Active Social History Tobacco Use: Social History [...] Problem Status W/U Status Risk Notes Problem 322019984 Right upper lobe pulmonary nodule (R91.1) Active confirmed The nodule being 1.3 cm will be evaluated with a PET CT scan. I have also ordered pulmonary function tests. 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 He was breathing comfortably with an oxygen saturation 97%. He was continuing current medications. Problem 774841701 Chronic atrial fibrillation (I48.20) Active confirmed He is in an irregularly irregular rhythm today. Denies any recent chest pain. Problem 583788630 Anticoagulated (Z79.01) Active confirmed He has had no recent bleeding. He is to be anticoagulat ed. 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 We made a plan to resist relapsing times stress or illness. Vital Signs Temperature 97.4 degrees Fahrenheit 03/14/19 25 Blood pressure systolic 119 mm Hg 03/14/19 25 Blood pressure diastolic 63 mm Hg 025 Heart Rate 56 /min 03/14/2024 Height 5' 10 in 03/14/2024 Weight 157 lbs 03/14/2024 BMI 22.52 kg/m2 03/14/2024 Oximetry 97 % 03/14/2024 Encounters Encounter Location Date Provider Diagnosis Yony Reynaga III, MD [address] [place] [address] [address] [place], [place] [id number] 03/14/2024 Yony Reynaga Right upper lobe pulmonary [...] times stress or illness. Plan Of Treatment Medication Medication Name Sig Start Date Stop Date Notes Furosemide 20 MG TAKE 1 TABLET BY KATEY TH TWICE DAILY Oral Spiriva Respimat 2.5 MCG/ACT INHALE 1 SP RAY BY MOUTH EVERY DAY DIRECTED Inhalation Atorvastatin Calcium 20 MG TAKE 1 TABLET BY MOUTH EVERY EVENING Oral dilTIAZem HCl ER Beads 240 MG TAKE 1 CAP CRISTI BY MOUTH EVERY MORNING Oral Eliquis 5 MG as directed Orally rOPINIRole HCl 2 MG 1 tablet 1 to 3 hour s before bedtime Orally Once a day Pantoprazole Sodium 40 MG 1 tablet 1 dyana r before morning meal Orally Once a day Albuterol Sulfate HFA 108 (9 0 Base) MCG/ACT 1 puff as needed Inhalation every 4 hrs Albuterol Sulfate (2.5 MG/3M L) 0.083% 3 mL as needed Inhalation every 6 hrs Spironolactone 25 MG 1 tablet Orally PreserVision AREDS 2 - as directed Orall y Twice a day Metoprolol Succinate ER 100 MG 1 tablet Orally Once a day Pending Test Test Name Order Date PET CT SKULL TO THIGHS 03/14/2024 PFT with DLCO 03/14/2024 Next Appt Details Follow Up: after testing, Re ason: OV review PFT and Pet scan done at [facility] * LIZ WASHINGTONDOB: [birth year] (84 yo M)Acc No.[id number]:03/14/2024 [facility] Notes Patient:LIZ JOHNSON Provider:?Yony Reynaga MD :1940???Age:84 Y???Sex:Male Con e:03/14/2024 Address:[address] [place] [address] Pcp:Vicente Cifuentes MD Subjective: * Chief Complaints: * ???spiculated RLL nodule 1.3 cmFormer smoker * HPI: ???COVID-19 Screening:? He is a very pleasant 84-year-old gentleman whose primary care physician is Dr. Vicente Cifuentes.? He recently had a chest x-ray done to evaluate pneumonia and an incidental finding was a 1.3 cm right upper lobe spiculated lesion.? He has a strong past history of smoking cigarettes.? He is currently asymptomatic.? He was referred here by Dr. Cifuentes for evaluation of nodule.? I have reviewed the CT scan with him it is in the right upper lobe is of uncertain appearance.? He has significant pulmonary disease.? A PET/CT scan has been ordered.His pneumonia has resolved is afebrile and breathing comfortably in room air.? His oxygen saturation was 97%. ?Questions?Have you had any new onset fever, chills, cough, congestion, sore throat, shortness of breath, muscle aches??No * ROS:?General/Constitutional:?pain?only normal aches and pains.?Chills?denies.?Fatigue?admits.?Fever?denies.?ENT:?Decreased hearing?mild.?Respiratory:?Cough?denies.?Cardiovascular:?Chest pain with exertion?denies.?Dyspnea on exertion?denies.?Shortness of breath?denies.?Gastrointestinal:?Constipation?denies.?Decreased appetite?denies.?Diarrhea?denies.?Heartburn?denies.?Nausea?denies.?Rectal bleeding?denies.?Vomiting?denies.?Hematology:?bruising?denies.?petechiae?denies.?Swollen glands?none have been noted.?Genitourinary:?Frequent urination?twice a night.?Musculoskeletal:?Muscle aches?denies.?Painful joints?denies.?Sciatica?denies.?Weakness?denies.?Skin:?Itching?denies.?Rash?denies.?Skin lesion(s)?denies.?Neurologic:?Difficulty speaking?denies.?Dizziness?denies.?Headache?denies.?Low back pain?denies.?Psychiatric:?Depressed mood?denies.? * Medical History:? * Surgical History:?Denies Pas t Surgical History * Hospitalization/Major Diagno stic Procedure:?Denies Past Hospitalization * Family History:?Father: dece ased.?Mother: , diagnosed with Cancer.?Siblings: , diagnosed with Cancer.?Maternal Grand Mother: , diagnosed with Cancer.?1 son(s) , 1 daughter(s) . .? * Social History:?Tobacco Use:?Tobacco Control (Standard)?Tobacco use:?Former smoker ?How long has it been since you last smoked??Greater than 10 years ?Additional Findings: Tobacco non-user?Ex-cigarette smoker ???Drugs/Alcohol:?Drugs?Have you used drugs other than those for medical reasons in the past 12 months??No ???Drug/Alcohol:?AUDIT-C (Standard)?Did you have a drink containing alcohol in the past year??No ?Points?0 ?Interpretation?Negative * Medications:?TakingMetoprolo l Succinate ER 100 MG Tablet Extended Release 24 Hour 1 tablet Orally Once a day PreserVision AREDS 2 - Capsule as directed Orally Twice a day rOPINIRole HCl 2 MG Tablet 1 tablet 1 to 3 hours before bedtime Orally Once a day Spironolactone 25 MG Tablet 1 tablet Orally Albuterol Sulfate (2.5 MG/3ML) 0.083% Nebulization Solution 3 mL as needed Inhalation every 6 hrs Albuterol Sulfate HFA 108 (90 Base) MCG/ACT Aerosol Solution 1 puff as needed Inhalation every 4 hrs Pantoprazole Sodium 40 MG Tablet Delayed Release 1 tablet 1 hour before morning meal Orally Once a day Eliquis 5 MG Tablet as directed Orally dilTIAZem HCl ER Beads 240 MG Capsule Extended Release 24 Hour TAKE 1 CAPSULE BY MOUTH EVERY MORNING Oral Atorvastatin Calcium 20 MG Tablet TAKE 1 TABLET BY MOUTH EVERY EVENING Oral Spiriva Respimat 2.5 MCG/ACT Aerosol Solution INHALE 1 SPRAY BY MOUTH EVERY DAY DIRECTED Inhalation Furosemide 20 MG Tablet TAKE 1 TABLET BY MOUTH TWICE DAILY Oral Medication List reviewed and reconciled with the patientTaking Metoprolol Succinate ER 100 MG Tablet Extended Release 24 Hour 1 tablet Orally Once a day Taking PreserVision AREDS 2 - Capsule as directed Orally Twice a day Taking rOPINIRole HCl 2 MG Tablet 1 tablet 1 to 3 hours before bedtime Orally Once a day Taking Spironolactone 25 MG Tablet 1 tablet Orally Taking Albuterol Sulfate (2.5 MG/3ML) 0.083% Nebulization Solution 3 mL as needed Inhalation every 6 hrs Taking Albuterol Sulfate HFA 108 (90 Base) MCG/ACT Aerosol Solution 1 puff as needed Inhalation every 4 hrs Taking Pantoprazole Sodium 40 MG Tablet Delayed Release 1 tablet 1 hour before morning meal Orally Once a day Taking Eliquis 5 MG Tablet as directed Orally Taking dilTIAZem HCl ER Beads 240 MG Capsule Extended Release 24 Hour TAKE 1 CAPSULE BY MOUTH EVERY MORNING Oral Taking Atorvastatin Calcium 20 MG Tablet TAKE 1 TABLET BY MOUTH EVERY EVENING Oral Taking Spiriva Respimat 2.5 MCG/ACT Aerosol Solution INHALE 1 SPRAY BY MOUTH EVERY DAY DIRECTED Inhalation Taking Furosemide 20 MG Tablet TAKE 1 TABLET BY MOUTH TWICE DAILY Oral Medication List reviewed and reconciled with the patient * Allergies:?No Known Drug All ergyno[Allergies Verified] Objective: * Vitals:?Ht: 5' 10 , Wt:157, BMI:22.52, BP:119/63, HR:56, Temp:97.4, Oxygen sat %:97, Ht-cm: 177.8, Wt-k.21. * Examination: ???General Examination: ?GENERAL APPEARANCE:?pleasant, well nourished, well developed, in no acute distress, calm and relaxed, elderly man.?HEAD:?atraumatic, normocephalic.?EYES:?eomi, perrla, anicteric, conjugate.?EARS:?normal.?NOSE:?septum intact.?ORAL CAVITY:?normal, unremarkable.?NECK/THYROID:?no jugular venous distention, no carotid bruit, thyroid normal.?LYMPH NODES:?no enlarged lymph nodes,spleen normal.?SKIN:?no suspicious lesions, anicteric.?HEART:?no clicks, gallops, murmurs, or rubs, irregular rhythm, S1, S2 normal, no s3, or vascular bruits.?LUNGS:?, diminished breath sounds throughout, rhonchi on the RIGHT, rhonchi on the LEFT.?BREASTS:??no masses palpable bilaterally.?ABDOMEN:?bowel sounds normal, no ascites, no organomegaly, no mass.?RECTAL EXAM:?not examined.?MUSCULOSKELETAL:?extremities unremarkable, no clubbing, cyanosis or edema.?PERIPHERAL PULSES:?normal.?NEUROLOGIC:?alert and oriented, cranial nerves 2-12 grossly intact, deep tendon reflexes 2+ symmetrical, motor strength normal upper and lower extremities, sensory exam intact.?PSYCH:?alert, oriented, cognitive function intact.? Assessment: * Assessment: 1.?Right upper lobe pulmonar y nodule - R91.1 (Primary)???Notes :The nodule being 1.3 cm will be evaluated with a PET CT scan.? I have also ordered pulmonary function tests.???2.?COPD, moderate - J44.9???Notes :He is a nonsmoker but has COPD.? He was breathing comfortably with an oxygen saturation 97%.? He was continuing current medications.???3.?Chronic atrial fibrillation - I48.20???Notes :He is in an irregularly irregular rhythm today.? Denies any recent chest pain.???4.?Anticoagulated - Z79.01???Notes :He has had no recent bleeding.? He is to be anticoagulated.???5.?Former smoker - Z87.891???Notes :He is a former smoker.? We made a plan to resist relapsing times stress or illness.??? Plan: * Treatment: * Imaging:? * ?Imaging: PET CT SKULL T O THIGHS ?Imaging: PFT with DLCO * Procedure Codes:?55377 MEASU RE BLOOD OXYGEN LEVEL * Preventive Medicine:? ??Counseling:?Smoking/Tobacco Use?Patient counseled on the dangers of tobacco use and urged to quit.?03/16/2024 ??COPD Care Plan:?Patient Lifestyle Goals?Be able to be more active with friends and family, Reduce number of ED and hospitalizations, Relieve symptoms and improve quality of life.?Treatment Goals?Exercise to help whole body, including lungs, Eat a nutritious diet and increase water consumption to 6-8 glasses a day, Eat 4-5 small meals throughout the day.?Barriers?no barriers.?Self-Managment Goals?Get an air purifier for the rooms you are in the most, Eat a healthy diet.? * Follow Up:?after testing (Re ason: OV review PFT and Pet scan done at ) * Images: * Sign off status: Completed true * Provider:?Yony Reynaga MD Date:?02/22 Generated for Printi ng/Farennyg/eTransmitting on:?03/20/2024 03:05 PM EST History and Physical Notes * HPI (History of Present Illness) Category Sub-Category Detail Notes COVID-19 Screening Questions Have you had any new onset fever, chills, cough, congestion, sore throat, shortness of breath, muscle aches?: No Examination Category Sub-Category Detail Notes General Examination GENERAL APPEARANCE: pleasant , well nourished, well developed, in no acute distress, calm and relaxed, elderly man HEAD: atraumatic, normocep halic EYES: eomi, perrla, anicte philip, conjugate EARS: normal NOSE: septum intact NECK/THYROID: no jugular venous di stention, no carotid bruit, thyroid normal HEART: no clicks, gallops, murmurs, or rubs, irregular rhythm, S1, S2 normal, no s3, or vascular bruits LUNGS: , diminished breath sounds throughout, rhonchi on the RIGHT, rhonchi on the LEFT ABDOMEN: bowel sounds normal, no ascites, no organomegaly, no mass NEUROLOGIC: alert and oriented, cranial nerves 2-12 grossly intact, deep tendon reflexes 2+ symmetrical, motor strength normal upper and lower extremities, sensory exam intact SKIN: no suspicious lesion s, anicteric PERIPHERAL PULSES: normal BREASTS: no masses palpable b ilaterally MUSCULOSKELETAL: extremities unremark able, no clubbing, cyanosis or edema LYMPH NODES: no enlarged lymph no brad,spleen normal RECTAL EXAM: not examined PSYCH: alert, oriented, cog nitive function intact ORAL CAVITY: normal, unremarkable
--- OUTSIDE RECORDS SUMMARY | 2024-03-20 15:06 | XMS_ITS | Clinical Summary ---
Author Organization [facility] Facility Address [address] [place] [address] Care Team Providers Care Environmental Technology Professor Name Role Phone Unavailable Primary Care Provider Unavailabl e Social History Tobacco Use Types Packs/Day Years Used Date Smoking Tobacco: Never Assessed Sex and Gender Information Value Date Recorded Sex Assigned at Not on file Legal Sex Male 4:56 PM EST Gender Identity Not on file Sexual Orientation Not on file Plan of Treatment Health Maintenance Due Date Last Done Comments Pneumococcal Vaccine: 65+ Ye ars (1 of 1 - PCV) 2007 Influenza Vaccine (#1) 2023 Hepatitis B Vaccine Aged Out No longe r eligible based on patient's age to complete this topic [place] [address] [place] [address]
--- OUTSIDE RECORDS SUMMARY | 2024-03-20 15:06 | XMS_ITS ---
Author Organization [facility] Address [address] [place] [address] Care Team Providers Care Emergency Room Physician Assistant Name Role Phone Vicente Cifuentes MD Primary Care Provider Leo Abreu Unavailable [phone] Allergies No Known Allergies REASON FOR VISIT Wart(s) Medications Medication SIG (Take, Route, Frequency, Duration) Notes Start Date End Date Status Atorvastatin Calcium 20 MG 1 tablet Oral ly Once a day Active Eliquis 5 MG as directed Orally Active dilTIAZem HCl ER 240 MG 1 tablet Orally Once a day Active Metoprolol Succinate 100 MG 1 capsule Or ally Once a day Active dilTIAZem HCl ER 120 MG 1 capsule Orally Twice a day Active Albuterol Active Spiriva HandiHaler A ctive Spironolactone 25 MG 1 tablet Orally Active Albuterol Sulfate (2.5 MG/3ML) 0.083% 3 mL as needed Inhalation every 6 hrs Active Pantoprazole Sodium 40 MG 1 tablet Orall y Once a day Active Physical Therapy . . . 2-3x/week for 3- 4 weeks Active PreserVision AREDS 2 Active rOPINIRole HCl 2 MG 1 tablet 1 to 3 hour s before bedtime Orally Once a day Active Furosemide 20 MG 1 tablet Orally Once a day Active Night Splint [...] 10/27/2023 Encounters Encounter Location Date Provider Diagnosis [facility] [place] [address] 10/27/2023 Leo Bella Other viral warts B07.8 ; Pain in left foot M79.672 ; Pain in right foot M79.671 ; Plantar fascial fibromatosis M72.2 ; Metatarsalgia, left foot M77.42 ; Metatarsalgia, right foot M77.41 ; Tinea unguium B35.1 and Ingrowing nail L60.0 Assessments Encounter Date Diagnosis (ICD Code) Assessment Notes Treatment Notes Treatment Clinical Notes Section Notes 10/27/2023 Other viral warts (ICD-10 - B07.8) 10/27/2023 Pain in left foot (ICD-10 - M79.672) 10/27/2023 Pain in right foot (ICD-10 - M79.671) 10/27/2023 Plantar fascial fibromatosis (ICD-10 - M72.2) 10/27/2023 Metatarsalgia, left foot (ICD-10 - M77.42) 10/27/2023 Metatarsalgia, right foot (ICD-10 - M77.41) 10/27/2023 Tinea unguium (ICD-10 - B35.1) 10/27/2023 Ingrowing nail (ICD-10 - L60.0) Plan Of Treatment Medication Medication Name Sig Start Date Stop Date Notes Physical Therapy . . . 2-3x/week for 3-4 weeks Night Splint AFO - L1930 as directed Next Appt Details Follow Up: prn, Reason: Procedure Notes * Category Sub-Category Detail Notes Wart Treatment Procedure Verrucae(s) were debrided to pin-point bleeding margins with sterile surgical blade (79127), silver nitrate chemocautery applied [facility] * Mac WASHINGTON ADOB: [birth year] (83 yo M)Acc No.[id number]:10/27/2023 [facility] Notes Patient:?Mac Washington Provider:?Leo Bella DPM :1940???Age:83 Y???Sex:Male Con e:10/27/2023 Address:[facility] [address], [id number] Pcp:Vicente Cifuentes MD Subjective: * Chief Complaints: * ???Wart(s) * HPI: ???Wart:?Pt States Last PCP Visit:?Date:?08/24/2023 ???Heel pain:?Nature:?sharp pain.?Location:?Proximal plantar aspect of Heel, B/L, RIGHT greater than Left.?Duration:?more than six months .?Onset/Cause:?unknown.?Course:?resolved--left and , unchanged-right.?Aggravated:?walking first thing in the morning/after rest.?Severity/Quality:?States 9 out of 10--rt.?Misc:?pt has worn cowboy boots all his adult life.? * ROS:?General/Constitutional:?Nausea?denies.?Vomiting?denies.?Hunger Thirst?denies.?Loss appetite?denies.?Chills?denies.?Fatigue?denies.?Fever?denies.?Night Sweats?denies.?Unexplained weight loss?denies.?Unexplained weight gain?denies.?HEENTM:?Dentures?denies.?Dizziness?denies.?Glasses/contacts?denies.?Retinopathy?de nies.?Blurred/double vision?denies.?TMJ?denies.?Discharge/drainage?denies.?Implants?denies.?Sore throat?denies.?Dental implants?denies.?Hard of hearing ?denies.?Difficulty chewing/swallowing/speaking?denies.?Nose bleeds?denies.?Sore mouth?denies.?Respiratory:?On Oxygen?denies.?Pneumonia/pleurisy?denies.?Bronchitis?denies.?Emphysema?denies.?C oughing?denies.?Cough blood?denies.?Shortness of breath?denies.?Wheezing?denies.?Cardiovascular:?Pacemaker?denies.?MVP?denies.?WPW?denies.?CHF?denies.?Heart attack?denies.?Septal defect?denies.?Rapid beat?denies.?Chest pain ?denies.?Atrial Fib.?denies.?Murmur/Palpitations?denies.?Gastrointestinal:?Hemorrhoids?denies.?Stomach/Abdominal pain?denies.?Dark blood stool?denies.?Irritable bowel ?denies.?Constipation?denies.?Diarrhea?denies.?Hematology:?Swelling?denies.?Clots?denies.?Varicose Veins?denies.?Bruising?denies.?Bleeding problem?denies.?Genitourinary:?Blood urine?denies.?Frequent/Painfu/urination/bladder control?denies.?Kidney stones?denies.?Infection (UTI)?denies.?Nephropathy?denies.?sex trans dis (STD)?denies.?Prostate?denies.?Musculoskeletal:?Hammertoes?denies.?Bunions?denies.?Back Pain?denies.?Muscle Cramps/ Resting?denies.?Muscle cramps / walking?denies.?Generalized aches and pains?denies.?Weakness?denies.?Integ.:?Haynes?denies.?Scars?denies.?Corns/calluses?denies.?Ingrown nails?denies.?Painful nails?denies.?Open Sores?denies.?Rashes?denies.?Neurologic:?Difficulty sleeping?denies.?Brain disorder?denies.?Numbness?denies.?Balance trouble?denies.?Confusion?denies.?Fainting/blackouts?denies.?Tingling?denies.?Tr emors?denies.? * Medical History:? * Surgical History:?carpal amina [...] dayEliquis 5 MG Tablet as directed Orally Night Splint AFO - L1930 as directed Physical Therapy . . . . 2-3x/weekMedication List reviewed and reconciled with the patientTaking [...] 5 MG Tablet as directed Orally Taking Night Splint AFO - L1930 as directed Taking Physical Therapy . . . . 2-3x/weekMedication List reviewed and reconciled with the patient * Allergies:?N.K.D.A.yes[Aller gies Verified] Objective: * Vitals:?Ht: 5ft 11in, Wt:160 , BMI:22.31, Shoe size:10. * Examination: ???Dermatologic: ?SKIN FINDINGS:?Skin exam reveals normal texture, elasticity, and tugor. There are no masses. The interspaces are clear.?VERRUCA:? Reveals a Single , multi-loculated , mosaic-patterned, round, raised, flat-topped, petechial bleeding papule(s), with cauliflower appearance and interruption of skin lines, pain to lateral compression, and size estimated at __2_ mm diameter, plantar Forefoot, left first mtpj.?General Examination: ?GENERAL APPEARANCE:?pleasant, alert, well nourished, well [...] in a symmetrical fashion B/L.?GAIT ABNORMALITY:?pronated, abducted, B/L.?Nails: ?NAILS are:? Elongated, overgrown, dystrophic, lytic, greater than 3mm thick, discolored and friable with crumbly malodorous subungual debris, with pain on palpation, 1-5 B/L; pop t5 cuticle.? 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 Plan: * Treatment: * Procedures:?Wart Treatment:?Procedure?Verrucae(s) were debrided to pin-point bleeding margins with sterile surgical blade (03521), silver nitrate chemocautery applied.? * Procedure Codes:?55725 Wart Destruction, 1-14, Modifiers: XS * Preventive Medicine:? ??Counseling:?Discussion:?-13: Office or other outpatient visit for the evaluation and management of an established patient, which required a medically appropriate history and/or examination and LOW level of DECISION MAKING for: 1 STABLE ACUTE UNCOMPLICATED PROBLEM, 2 OR MORE MINOR PROBLEMS, OR 1 STABLE CHRONIC PROBLEM, THAT POSE(S) A LOW RISK FOR MORBIDITY/MORTALITY. The visit on the day of the [...] have encouraged the patient to call the office--cotninue with insoles/orthoses.? * Follow Up:?prn * Images: * Sign off status: Completed true * Provider:?Leo Bella DPM Date:? 024 Generated for Nancy zapata/Kvng/eTranpaola on:?03/20/2024 03:05 PM EST History and Physical Notes * HPI (History of Present Illness) Category Sub-Category Detail Notes Category Not es Heel pain Duration: more than six months Nature: sharp pain Severity/Quality: States 9 out of 10-- rt Location: Proximal plantar asp ect of Heel, B/L, RIGHT greater than Left Onset/Cause: unknown Aggravated: walking first thing in the morning/after rest Course: resolved--left and , unchanged-right Misc: pt has worn cowboy b oots all his adult life Wart Pt States Last PCP Visit: Date:: 08/24/2023 Examination Category Sub-Category Detail Notes Category Not [...] to lateral compression, and size estimated at __2_ mm diameter, plantar Forefoot, left first mtpj Orthopedic GAIT ABNORMALITY: pronated, abducted, B/L MUSCLE [...]
== END 2024-03-20 14:07 | disposition home or self-care (01) ==
LOC: HO.PET 14:06
PROVIDERS: PCP Internal Medicine; Visit Provider Internal Medicine Medical Oncology
DX: Z13.89 Encounter for screening for other disorder (principal)

== ENCOUNTER 2024-03-21 11:23 | Outpatient (REF) | payer MEDICARE, SELFPAY ==
--- NOTE | 2024-03-21 11:30 | PFT_ITS ---
Flows: FEV1: 30 % of predicted at 0.82 L FVC: 78 % of predicted at 2.89 L FEV1/FVC: 28 % Bronchodilator response: Absent Volumes: Total lung capacity: 85 % of predicted at 5.82 L Residual volume: 109 % of predicted at 2.84 L Slow vital capacity: 74 % of predicted at 2.87 L Expiratory reserve volume: 95 % of predicted at 1.12 L Diffusion capacity: Moderately decreased, adjusts to being mildly decreased after correction for alveolar ventilation. Impression: Very severe obstructive ventilatory defect with no bronchodilator response. Decreased diffusion capacity suggests emphysema. MTDD
--- OUTSIDE RECORDS SUMMARY | 2024-03-21 13:41 | XMS_ITS ---
Author Organization [facility] Address [address] [place] [address] Care Team Providers Care Recycling Tech Name Role Phone Vicente Cifuentes MD Primary Care Provider Leo Abreu [phone] REASON FOR VISIT dispense [id number] Encounters Encounter Location Date Provider Diagnosis [facility] [address] [place] [address] 09/21/2023 Leo Bella Plan Of Treatment No Information Progress Notes * Mac WASHINGTON ADOB: [birth year] (83 yo M)Acc No.[id number]:09/21/2023 Patient:?Mac Washington :1940???Age:83 Y???Sex:Male Address:[address] [place] [address] * true * Date:? Generated for Patricki benny/Kvng/eTransmitting on:?03/21/2024 01:41 PM EST
--- OUTSIDE RECORDS SUMMARY | 2024-03-21 13:42 | XMS_ITS ---
Author Organization [facility] Address [address] [place] [address] Care Team Providers Care Draw Fire Operator Name Role Phone Vicente Cifuentes MD Primary Care Provider Leo Abreu Unavailable [phone] Allergies No Known Allergies REASON FOR VISIT [...] 09/21/2023 Encounters Encounter Location Date Provider Diagnosis [facility] [place] [address] [place] [address] 09/21/2023 Leo Bella Other viral warts B07.8 [...] pin-point bleeding margins with sterile surgical blade (20907), silver nitrate chemocautery applied, recomm. Wartstick 40 percent Salicylic acid application under occlusion as directed Progress Notes * Mac WASHINGTON ADOB: [birth year] (83 yo M)Acc No.[id number]:09/21/2023 Progress Notes Patient:?Mac Washington Provider:?Leo Bella DPM :1940???Age:83 Y???Sex:Male Con e:09/21/2023 Address:[address] [place] [address], [facility] [place], [facility] Pcp:Vicente Cifuentes MD Subjective: * Chief Complaints: [...] pin-point bleeding margins with sterile surgical blade (49411), silver nitrate chemocautery applied, recomm. Wartstick 40 percent Salicylic acid application under occlusion as directed.? * Procedure Codes:?32011 Wart Destruction, 1-14, Modifiers: XS 71236 X-RAY EXAM OF RIGHT FOOT 3V, Modifiers: 26 , [id number] X-RAY EXAM OF LEFT FOOT 3V, Modifiers: 26 , [id number] AFO PLASTIC/OTH MATERIAL PREFAB, Modifiers: RT * [...] Interfil injection therapy, as well as surgical Henry/Endoscopic Fasciitomy surgical procedures if needed. Recommendations were [...] DPM Date:? 024 Generated for Nancy zapata/Kvng/Avery on:?03/21/2024 01:41 PM EST History and Physical Notes * [...]
--- OUTSIDE RECORDS SUMMARY | 2024-03-21 13:42 | XMS_ITS ---
Author Organization Yony Reynaga III, MD Address [address] [place] [address] [place] [address] Care Team Providers Care Program Production Specialist Name Role Phone Vicente Cifuentes MD Primary Care Provider Yony Tinsley Unavailable [phone] Allergies Allergen (clinical drug ingredient) Drug/Non Drug [...] Problem Status W/U Status Risk Notes Problem 048533390 Right upper lobe pulmonary nodule (R91.1) Active confirmed The nodule being 1.3 cm will be evaluated with a PET CT scan. I have also ordered pulmonary function tests. Problem 418715144 COPD, moderate (J44.9) Active confirmed He is a nonsmoker but has COPD. He was breathing comfortably with an oxygen saturation 97%. He was continuing current medications. Problem 938304733 Chronic atrial fibrillation (I48.20) Active confirmed He is in an irregularly irregular rhythm today. Denies any recent chest pain. Problem 439762783 Anticoagulated (Z79.01) Active confirmed He has had no recent bleeding. He is to be anticoagulat ed. 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) Active confirmed Problem 8843210 Former smoker (Z87.891) Active confirmed He is [...] Date Provider Diagnosis Yony Reynaga III, MD [address] [place] [address] [place] [address] 03/14/2024 Yony Reynaga Right upper lobe pulmonary [...] * LIZ WASHINGTONDOB: 2 (84 yo M)Acc No.[id number]:03/14/2024 Progress Notes Patient:LIZ JOHNSON Provider:?Yony Reynaga MD :1940???Age:84 Y???Sex:Male Con e:03/14/2024 Address:[address] [place], [place] [id number] Pcp:Vicente Cifuentes MD Subjective: * Chief Complaints: [...] THIGHS ?Imaging: PFT with DLCO * Procedure Codes:?53657 MEASU RE BLOOD OXYGEN LEVEL * Preventive [...] * Provider:?Yony Reynaga MD Date:?02/22 Generated for Patricki benny/Kvng/eTransmitting on:?03/21/2024 01:42 PM EST History and Physical Notes * [...]
--- OUTSIDE RECORDS SUMMARY | 2024-03-21 13:42 | XMS_ITS | Patient Health Record ---
Author Organization Yony Reynaga III, MD Address [address] [place] [address] [place] [address] Care Team Providers Care Sheriff'S Officer Name Role Phone Vicente Cifuentes MD Primary Care Provider Yony Tinsley Unavailable [phone] Allergies Allergen (clinical drug ingredient) Drug/Non Drug [...] Problem Status W/U Status Risk Notes Problem 4099152 Former smoker (Z87.891) Active confirmed He is a former smoker. We made a plan to resist relapsing times stress or illness. Problem 809779855 Mixed hyperlipidemia (E78.2) Active confirmed Problem 583642549 Anticoagulated (Z79.01) Active confirmed He has had no recent bleeding. He is to be anticoagulat ed. Problem 905938116 Peripheral vascular disease (I73.9) Active confirmed Problem 20777542 Restless leg syndrome (G25.81) Active confirmed Problem 190412657 Chronic GERD (K21.9) Active confirmed Problem 983600184 Chronic atrial fibrillation (I48.20) Active confirmed He is in an irregularly irregular rhythm today. Denies any recent chest pain. Problem 574247467 Right upper lobe pulmonary nodule (R91.1) Active confirmed The nodule being 1.3 cm will be evaluated with a PET CT scan. I have also ordered pulmonary function tests. Problem 057303111 COPD, moderate (J44.9) Active confirmed He is a nonsmoker but has COPD. He was breathing comfortably with an oxygen saturation 97%. He was continuing current medications. 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) Active confirmed Vital Signs Heart Rate 56 /min 03/14/2024 Temperature 97.4 degrees Fahrenheit 03/14/2024 Oximetry 97 % 03/14/2024 Blood pressure diastolic 63 mm Hg 03/14/2024 Height 5' 10 in 03/14/2024 Blood pressure systolic 119 mm Hg 03/14/2024 Weight 157 lbs 03/14/2024 BMI 22.52 kg/m2 03/14/2024 Encounters Encounter Location Date Provider Diagnosis Yony Reynaga III, MD [address] [place] [address] [place] [address] 03/14/2024 Yony Reynaga Right upper lobe pulmonary [...] Insured Coverage Start Date Coverage End Date [facility] [address] [place] [phone] [id number] LIZ WASHINGTON Self - patient is the insured MEDICARE NGS [address] [facility] [place] [phone] [id number] LIZ WASHINGTON Self - patient is the insured Medical (General) History Medical History History ICD Code Right upper lobe 1.3 cm spiculated nodul e COPD Atrial fibrillation Pripheral edema GERD Carotid dicease Peripheral artery dicease Restless leg syndrome Hyperlipidemia Arthritis of the knee Anticoagulated with apixaban
--- OUTSIDE RECORDS SUMMARY | 2024-03-21 13:42 | XMS_ITS ---
Author Organization [facility] Address [address] [place] [address] Care Team Providers Care Double Back Operator Name Role Phone Vicente Cifuentes MD Primary Care Provider Leo Abreu Unavailable [phone] Allergies No Known Allergies REASON FOR VISIT [...] 10/27/2023 Encounters Encounter Location Date Provider Diagnosis [facility] [place] [address] [place] [address] 10/27/2023 Leo Bella Other viral warts B07.8 [...] pin-point bleeding margins with sterile surgical blade (56750), silver nitrate chemocautery applied Progress Notes * Mac WASHINGTON ADOB: [birth year] (83 yo M)Acc No.[id number]:10/27/2023 Progress Notes Patient:?Mac Washington Provider:?Leo Bella DPM :1940???Age:83 Y???Sex:Male Con e:10/27/2023 Address:[facility] [address], [id number] Pcp:Vicente Cifuentes MD Subjective: * Chief Complaints: [...] pin-point bleeding margins with sterile surgical blade (69794), silver nitrate chemocautery applied.? * Procedure Codes:?31077 Wart Destruction, 1-14, Modifiers: XS * Preventive [...] DPM Date:? 024 Generated for Nancy zapata/Kvng/eTranpaola on:?03/21/2024 01:42 PM EST History and Physical [...]
--- OUTSIDE RECORDS SUMMARY | 2024-03-21 13:42 | XMS_ITS | Patient Health Record ---
Author Organization [facility] Address [address] [place] [address] Care Team Providers Care Liner Assembler Name Role Phone Vicente Cifuentes MD Primary Care Provider Leo Abreu Unavailable [phone] Allergies No Known Allergies Reason For Referral [...] 10/27/2023 Encounters Encounter Location Date Provider Diagnosis [address] [address] 09/21/2023 Leo Bella Other viral warts B07.8 ; Pain in left foot M79.672 ; Pain in right foot M79.671 ; Plantar fascial fibromatosis M72.2 ; Metatarsalgia, left foot M77.42 ; Metatarsalgia, right foot M77.41 ; Tinea unguium B35.1 and Ingrowing nail L60.[address] [address] 10/27/2023 Leo Bella Other viral warts B07.8 ; Pain in left foot M79.672 ; Pain in right foot M79.671 ; Plantar fascial fibromatosis M72.2 ; Metatarsalgia, left foot M77.42 ; Metatarsalgia, right foot M77.41 ; Tinea unguium B35.1 and Ingrowing nail L60.[address] [address] 09/21/2023 Leo Bella Assessments Encounter Date Diagnosis [...] Date [employer] [place] Medicare Advantage [facility] [address] [facility] [place] [address] [phone] [id number] Mac Marsh Self - patient is the insured Medical (General) History Medical History History ICD Code Angina asthma Back,Hip,and Knee pain Broken bones Cancer Cataracts Headaches/Migraines Hepatitis Lung disease Macular degeneration Tuberculosis Chicken pox Transfusions Surgical History Surgery Date(Month/Year) carpal tunnel surgery 10/14/22 cancer surgery 2009
--- OUTSIDE RECORDS SUMMARY | 2024-03-21 13:42 | XMS_ITS | Clinical Summary ---
Author Organization [facility] Address [address] [place] [address] Care Team Providers Care Mining Speculator Name Role Phone Unavailable Primary Care Provider [...] patient's age to complete this topic [place] [address] [place] [address]
== END 2024-03-21 11:24 | disposition home or self-care (01) ==
LOC: HO.RESP 11:23
PROVIDERS: PCP Internal Medicine; Visit Provider Internal Medicine Medical Oncology
DX: R91.1 Solitary pulmonary nodule (principal)
CPT/HCPCS: 94010; 94640; 94727; 94729

== ENCOUNTER → 2024-03-21 11:30 | Outpatient (BNV) | payer MEDICARE, SELFPAY | PROVIDERS: PCP Internal Medicine; Visit Provider Internal Medicine Pulmonary Disease | DX: R91.1 Solitary pulmonary nodule (principal) | CPT/HCPCS: 94060; 94727; 94729 ==

== ENCOUNTER 2024-04-04 09:53 | Outpatient (AMB) | payer MEDICARE, SELFPAY ==
[2024-04-04 09:54] VITALS: BP 102/62; PULSE 75; O2SAT 90; BMI 21.2
--- NOTE | 2024-04-04 09:54 | MHC.OFFVIS ---
Vital Signs 04/04/24 09:54 Height 5 ft 11 in Weight 152 lb 1.903 oz BMI 21.2 BP 102/62 Blood Pressure Location Lt brachial Position Sitting Pulse 75 Pulse Source Doppler Pulse Oximetry (%) 90 L Oxygen Delivery Method Room Air Intake Visit Reasons: Pulmonary Nodule/PET Follow Up Allergies No Known Allergies [NO KNOWN ALLERGIES] Allergy (Unknown, Verified 02/18/24 13:50) UNKNOWN HPI HPI Pulmonary Nodule/PET Follow Up: Details: 84-year-old gentleman, former 40 pack-year smoker, quit 30 years prior, previously followed by Dr. Cloud, but lost to follow-up over the last 2-1/2 years returns to reestablish care. Patient continued to follow-up with his primary care who noted to have a 1.3 cm right lobe pulmonary density which was negative for PET scan and thereafter patient was Re referred for pulmonary follow-up. He states that he has been using Stiolto, Wixela, and albuterol MDI/nebs with reasonable control of his symptoms. He denies recent exacerbations. He denies underlying family history of lung disease. 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 [facility] Medical History (Updated 04/04/24 @ 10:21 by Fantasma Yu MD) COPD (chronic obstructive pulmonary disease) Pneumonia Pneumonia COPD (chronic obstructive pulmonary disease) with emphysema Chronic atrial fibrillation HTN (hypertension) Bilateral carotid artery disease Hyperlipidemia History of cardiomyopathy COPD (chronic obstructive pulmonary disease) History of cardioversion Surgical History History of tonsillectomy and adenoidectomy Hx of colonoscopy Hx of cardiac cath Family History Father Stroke CVD (cardiovascular disease) Mother Colon cancer Diabetes Sister Diabetes COPD (chronic obstructive pulmonary disease) Breast cancer Social History Household Members: Spouse Housing: House Do you presently have visiting nurse or other home services: No Patient Tobacco Use Status: Former Tobacco user Tobacco use type: Cigarette Advance Directives Date on File: 06/11/21 service: No 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al status: retired 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 Review of Systems Const Denies daytime sleepiness, Denies excessive sweating, Denies fatigue, Denies fever(s), Denies lethargy, Denies malaise, Denies night sweats, Denies snoring and Denies weight loss Eyes Denies blurry vision and Denies itchy eyes ENT Denies nasal congestion, Denies post nasal drip, Denies sinus pain, Denies sinus pressure and Denies other ( Thrush) Card Denies chest pain, Denies pedal edema, Denies dyspnea, Reports dyspnea on exertion, Denies orthopnea and Denies paroxysmal nocturnal dyspnea Resp Denies cough, Denies hemoptysis, Denies excessive phlegm production, Denies dyspnea, Reports dyspnea on exertion, Denies snoring and Denies wheezing GI Denies abdominal pain and Denies heartburn Musc Denies myalgias, Denies arthralgias and Denies joint swelling Skin/Breast Denies rash Neuro Denies memory loss and Denies seizure-like activity Psych Denies abnormal sleep pattern, Denies anxiety and Denies memory loss Endo Denies excessive sweating, Denies fatigue and Denies heat intolerance Maximiliano/Lymph Denies easy bruising Aller/Immun Denies itchy eyes, Denies seasonal rhinorrhea and Denies wheezing Physical Exam Vital Signs: Last Vital Signs Pulse 75 04/04/24 09:54 BP 102/62 04/04/24 09:54 Pulse Ox 90 L 04/04/24 09:54 Oxygen Delivery Method Room Air 04/04/24 09:54 BMI result Body Mass Index 21.2 Const General: no acute distress and alert Nutritional Appearance: not obese Orientation/consciousness: Other orientation findings ( oriented) HEENT Head: Yes atraumatic Eyes General: appearance normal, both eyes and all related structures Sclerae: sclerae normal EOM: EOMs intact bilaterally Neck Neck: Yes supple Lymphatic: no lymphadenopathy noted Resp Effort & Inspection: normal respiratory effort and no use of accessory muscles Auscultation: clear to auscultation bilaterally Cardio Rate: regular rate Rhythm: regular rhythm Heart sounds: no gallops, no murmurs and no rubs Skin General skin exam: other ( warm) Extrem General: No clubbing, No cyanosis and No edema Assessment & Plan Assessment & Plan (1) COPD (chronic obstructive pulmonary disease): Code(s): J44.9 - Chronic obstructive pulmonary disease, unspecified Category: Medical Plan: Will consolidate his inhaled bronchodilator therapy to Trelegy. Pulmonary function test reviewed, underlying very severe obstructive ventilatory defect. (2) Pulmonary nodule: Code(s): R91.1 - Solitary pulmonary nodule Category: Medical Plan: Results of PET scan reviewed, FDG negative right upper lobe 1.3 cm pulmonary nodule. Patient states that he has CT chest scheduled ordered by his primary care to follow-up on the nodule. Medications: New idxqnygsctl-togzbnkfh-mnnbxaff 200-62.5-25 mcg (Trelegy Ellipta) 1 inh inhalation DAILY 1 ea 6RF Coding Level of Care Code Est Pt Level 4 (30082) Diagnoses COPD (chronic obstructive pulmonary disease) J44.9 Pulmonary nodule R91.1
--- OUTSIDE RECORDS SUMMARY | 2024-04-04 11:31 | XMS_ITS ---
Author Organization [facility] Address [address] [place] [address] Care Team Providers Care Teleprinter Installer Name Role Phone Vicente Cifuentes MD Primary Care Provider Leo Abreu [phone] REASON FOR VISIT dispense L1930 Encounters Encounter Location Date Provider Diagnosis [facility] [address] [place] [address] 09/21/2023 Leo Bella Plan Of Treatment No Information Progress Notes * Mac WASHINGTON ADOB: [birth year] (83 yo M)Acc No.[id number]:09/21/2023 Patient:?Mac Washington :1940???Age:83 Y???Sex:Male Address:[address] [place] [address] * true * Date:? Generated for Patricki benny/Kvng/eTransmitting on:?04/04/2024 11:31 AM EST
--- OUTSIDE RECORDS SUMMARY | 2024-04-04 11:31 | XMS_ITS | Patient Health Record ---
Author Organization [facility] Address [address] [place] [address] Care Team Providers Care Recruiting Administrator Name Role Phone Vicente Cifuentes MD Primary Care Provider Leo Abreu Unavailable [phone] Allergies No Known Allergies Reason For Referral [...] 10/27/2023 Encounters Encounter Location Date Provider Diagnosis [address] [address] 09/21/2023 Leo Bella Other viral warts B07.8 ; Pain in left foot M79.672 ; Pain in right foot M79.671 ; Plantar fascial fibromatosis M72.2 ; Metatarsalgia, left foot M77.42 ; Metatarsalgia, right foot M77.41 ; Tinea unguium B35.1 and Ingrowing nail L60.[address] [address] 10/27/2023 Leo Bella Other viral warts B07.8 ; Pain in left foot M79.672 ; Pain in right foot M79.671 ; Plantar fascial fibromatosis M72.2 ; Metatarsalgia, left foot M77.42 ; Metatarsalgia, right foot M77.41 ; Tinea unguium B35.1 and Ingrowing nail L60.[address] [address] 09/21/2023 Leo Bella Assessments Encounter Date Diagnosis [...] Date [employer] [place] Medicare Advantage [facility] [address] [place] [address] [phone] [id number] Mac Marsh Self - patient is the insured Medical (General) History Medical History History ICD Code Angina asthma Back,Hip,and Knee pain Broken bones Cancer Cataracts Headaches/Migraines Hepatitis Lung disease Macular degeneration Tuberculosis Chicken pox Transfusions Surgical History Surgery Date(Month/Year) carpal tunnel surgery 10/14/22 cancer surgery 2009
--- OUTSIDE RECORDS SUMMARY | 2024-04-04 11:32 | XMS_ITS ---
Author Organization Yony Reynaga III, MD Address [address] [place] [address] [place] [address] Care Team Providers Care Window Sash Installer Name Role Phone Vicente Cifuentes MD Primary Care Provider Yony Tinsley Unavailable [phone] Allergies Allergen (clinical drug ingredient) Drug/Non Drug Allergy documented on EMR Reaction Allergy Type Onset Date Status No Known Drug Allergy Unknown Drug Allergy Active Reason For Referral Reason Consult and Treat Exposure to Asbestos Right upper lobe pulmonary nodule Diagnosis 1 Right upper lobe pul monary nodule (R91.1) Diagnosis 2 Former smoker (Z87.8 91) Diagnosis 3 COPD, moderate (J44. 9) Referral Organization Yony Reynaga III, MD Referring Provider First Name Yony Referring Provider Last Name Juhi Referring Provider Speciality Internal M edicine Referred Provider HILTON RUDD Referred Provider Specialty Pulmonary [facility] Notes Lois Aragon 03/30/2024 01:41:44 PM > Faxed referral with progress note Referral Priority Routine REASON FOR VISIT Right upper lobe pulmonary nodule, COPD, Emphysema, Atrial fibrillation, Peripheral arterial disease, Hyperlipidemia Medications Medication SIG (Take, Route, Frequency, Duration) Notes Start Date End Date Status Eliquis 5 MG as directed Orally Active dilTIAZem HCl ER Beads 240 MG TAKE 1 CAPSULE BY MOUTH EVERY MORNING Oral Active Atorvastatin Calcium 20 MG TAKE 1 TABLET BY MOUTH EVERY EVENING Oral Active Spiriva Respimat 2.5 MCG/ACT INHALE 1 SP RAY BY MOUTH EVERY DAY DIRECTED Inhalation Active Furosemide 20 MG TAKE 1 TABLET BY TH TWICE DAILY Oral Active Albuterol Sulfate (2.5 MG/3ML) 0.083% 3 mL as needed Inhalation every 6 hrs Active Albuterol Sulfate HFA 108 (90 Base) MCG/ACT 1 puff as needed Inhalation every 4 hrs Active Pantoprazole Sodium 40 MG 1 tablet 1 dynaa r before morning meal Orally Once a day Active rOPINIRole HCl 2 MG 1 tablet 1 to 3 hour s before bedtime Orally Once a day Active Spironolactone 25 MG 1 tablet Orally Active Metoprolol Succinate ER 100 MG 1 tablet Orally Once a day Active PreserVision AREDS 2 - as directed Orall y Twice a day Active Social History Tobacco Use: [...] Additional Findings: Tobacco non-user Ex-cigaret te smoker Problems Problem Type SNOMED Code ICD Code Onset Dates Problem Status W/U Status Risk Notes Problem 9772768 Panlobular emphysema (J43.1) Active confirmed His pulmonary function test were interpreted as showing likely emphysema. He has significant obstructive disease which did not improve with bronchodilator s. Vital Signs Temperature 97.8 degrees Fahrenheit 03/28/19 25 Blood pressure systolic 121 mm Hg 03/28/19 25 Blood pressure diastolic 64 mm Hg 025 Heart Rate 85 /min 03/28/2024 Height 5'10 in 03/28/2024 Weight 152 lbs 03/28/2024 BMI 21.81 kg/m2 03/28/2024 Encounters Encounter Location Date Provider Diagnosis Yony Reynaga III, MD [address] [place] [address] [place] [address] 03/28/2024 Yony Reynaga Right upper lobe pulmonary nodule R91.1 ; COPD, moderate J44.9 ; Chronic atrial fibrillation I48.20 ; Anticoagulated Z79.01 ; Chronic GERD K21.9 ; Peripheral vascular disease I73.9 ; Mixed hyperlipidemia E78.2 ; Localized osteoarthritis of knees, bilateral M17.0 ; Former smoker Z87.891 and Panlobular emphysema J43.1 Assessments Encounter Date Diagnosis (ICD Code) Assessment Notes Treat ment Notes Treatment Clinical Notes 03/28/2024 Right upper lobe pulmonary nodule (ICD-10 - R91.1) The right upper lobe lesion is PET negative. He is being referred to pulmonary for treatment of his lung disease and to follow this nodule. I have ordered a repeat CT scan of the chest in 3 months. 03/28/2024 COPD, moderate (ICD-10 - J44.9) He is a nonsmoker but has COPD. He was breathing comfortably with an oxygen saturation 97%. He was continuing current medications. 03/28/2024 Chronic atrial fibrillation (ICD-10 - I48.20) He is in an irregularly irregular rhythm today. Denies any recent chest pain. 03/28/2024 Anticoagulated (ICD-10 - Z79.01) He has had no recent bleeding. He is to be anticoagulated. 03/28/2024 Chronic GERD (ICD-10 - K21.9) His reflux symptoms are controlled with medication. 03/28/2024 Peripheral vascular disease (ICD-10 - I73.9) He says he experiences claudication in one block. No lesions were seen on his feet. This issue will be managed by primary care. 03/28/2024 Mixed hyperlipidemia (ICD-10 - E78.2) No change was made in his medical regimen today. 03/28/2024 Localized osteoarthritis of knees, bilateral (ICD-10 - M17.0) 03/28/2024 Former smoker (ICD-1 0 - Z87.891) He is a former smoker. We made a plan to resist relapsing times stress or illness. 03/28/2024 Panlobular emphysema (ICD-10 - J43.1) His pulmonary function test were interpreted as showing likely emphysema. He has significant obstructive disease which did not improve with bronchodilators. Plan Of Treatment Medication Medication Name Sig Start Date Stop Date Notes Eliquis 5 MG as directed Orally dilTIAZem HCl ER Beads 240 MG TAKE 1 CAP CRISTI BY MOUTH EVERY MORNING Oral Atorvastatin Calcium 20 MG TAKE 1 TABLET BY MOUTH EVERY EVENING Oral Spiriva Respimat 2.5 MCG/ACT INHALE 1 SP RAY BY MOUTH EVERY DAY DIRECTED Inhalation Furosemide 20 MG TAKE 1 TABLET BY KATEY TH TWICE DAILY Oral Albuterol Sulfate (2.5 MG/3M L) 0.083% 3 mL as needed Inhalation every 6 hrs Albuterol Sulfate HFA 108 (9 0 Base) MCG/ACT 1 puff as needed Inhalation every 4 hrs Pantoprazole Sodium 40 MG 1 tablet 1 dyana r before morning meal Orally Once a day rOPINIRole HCl 2 MG 1 tablet 1 to 3 hour s before bedtime Orally Once a day Spironolactone 25 MG 1 tablet Orally Metoprolol Succinate ER 100 MG 1 tablet Orally Once a day PreserVision AREDS 2 - as directed Orall y Twice a day Pending Test Test Name Order Date CT CHEST WITH CONTRAST 03/28/2024 Referrals Referral Date Details 03/28/2024 03/28/2024, Consult and Treat Exposure to Asbestos Right upper lobe pulmonary nodule, HILTON RUDD Next Appt Details Follow Up: 3 1/2 Months, [place] son: OV Provider Name:Yony Reynaga, 07/19/2024 10:30:00 AM, [address] [place] [address], [place] [address], [place], [address], Progress Notes * LIZ WASHINGTONDOB: 2 (84 yo M)Acc No.[id number]:03/28/2024 Progress Notes Patient:?FELIXLIZ Provider:?Yony Reynaga MD :1940???Age:84 Y???Sex:Male Con e:03/28/2024 Address:[address] [place], [place] [id number] Pcp:Vicente Cifuentes MD Subjective: * Chief Complaints: * ???Right upper lobe pulmonar y noduleCOPDEmphysemaAtrial fibrillationPeripheral arterial diseaseHyperlipidemia * HPI: ???COVID-19 Screening:?He returns to review the results of the recent PET CT scan.? It shows significant emphysema and COPD.? The right upper lobe nodule was PET negative.? I have referred him to pulmonary for treatment of his severe lung disease.? It has been many years since he last saw Dr. Cloud.? He is not currently smoking.? A repeat CT scan in 3 months, was ordered.His pulmonary function tests have been done and were interpreted as showing very severe obstructive ventilatory defect with no Jorge dilator response.? Decreased diffusion capacity suggested emphysema. ?Questions?Have you had any new onset fever, chills, cough, congestion, sore throat, shortness of breath, muscle aches??No * ROS:?General/Constitutional:?pain?only normal aches and pains.?Chills?denies.?Fatigue?admits.?Fever?denies.?ENT:?Decreased hearing?denies.?Respiratory:?Cough?non-productive.?Cardiovascular:?Chest pain with exertion?denies.?Dyspnea on exertion?denies.?Shortness of breath?with exertion.?Gastrointestinal:?Constipation?occasional.?Decreased appetite?denies.?Diarrhea?denies.?Heartburn?denies.?Nausea?denies.?Rectal bleeding?denies.?Vomiting?denies.?Hematology:?bruising?denies.?petechiae?denies.?Swollen glands?none have been noted.?Genitourinary:?Frequent urination?twice [...] 10 years ?Additional Findings: Tobacco non-user?Ex-cigarette smoker * Medications:?TakingMetoprolo l Succinate ER 100 MG [...] Drug All ergyno[Allergies Verified] Objective: * Vitals:?Ht: 5'10 , Wt:152, B PR:21.81, BP:121/64, HR:85, Temp:97.8, Ht-cm: 177.8, Wt-k.95. * ???Past Orders: ???Imaging:PET CT fusion sku ll to thigh (Order Date - 03/20/2024) (Performed Date - 03/20/2024) * Examination: ???General Examination: ?GENERAL APPEARANCE:?pleasant, well nourished, well developed, in no acute distress, calm and relaxed, elderly man.?HEAD:?atraumatic, normocephalic.?EYES:?eomi, perrla, anicteric, conjugate.?EARS:?normal.?NOSE:?septum intact.?ORAL CAVITY:?normal, unremarkable.?NECK/THYROID:?no jugular venous distention, no carotid bruit, thyroid normal.?LYMPH NODES:?no enlarged lymph nodes,spleen normal.?SKIN:?no suspicious lesions, anicteric.?HEART:?no clicks, gallops, murmurs, or rubs, regular rhythm, S1, S2 normal, no s3, or vascular bruits.?LUNGS:?Very diminished lung sounds,, rhonchi on the RIGHT, rhonchi on the LEFT.?BREASTS:??no masses palpable bilaterally.?ABDOMEN:?bowel sounds normal, no ascites, no organomegaly, no mass.?RECTAL EXAM:?not examined.?MUSCULOSKELETAL:?extremities unremarkable, no clubbing, cyanosis or edema, Crepitus both knees.?PERIPHERAL PULSES:?normal.?NEUROLOGIC:?alert and oriented, cranial nerves 2-12 grossly intact, deep tendon reflexes 2+ symmetrical, motor strength normal upper and lower extremities, sensory exam intact.?PSYCH:?alert, oriented, anxious appearing.? Assessment: * Assessment: 1.?Right upper lobe pulmonar y nodule - R91.1 (Primary)???Notes :The right upper lobe lesion is PET negative.? He is being referred to pulmonary for treatment of his lung disease and to follow this nodule.? I have ordered a repeat CT scan of the chest in 3 months.???2.?COPD, moderate - J44.9???Notes :He is a nonsmoker but has COPD. He was breathing comfortably with an oxygen saturation 97%. He was continuing current medications.???3.?Chronic atrial fibrillation - I48.20???Notes :He is in an irregularly irregular rhythm today. Denies any recent chest pain.???4.?Anticoagulated - Z79.01???Notes :He has had no recent bleeding. He is to be anticoagulated.???5.?Chronic GERD - K21.9???Notes :His reflux symptoms are controlled with medication.???6.?Peripheral vascular disease - I73.9???Notes :He says he experiences claudication in one block.? No lesions were seen on his feet.? This issue will be managed by primary care.???7.?Mixed hyperlipidemia - E78.2???Notes :No change was made in his medical regimen today.???8.?Localized osteoarthritis of knees, bilateral - M17.0???9.?Former smoker - Z87.891???Notes :He is a former smoker. We made a plan to resist relapsing times stress or illness.???10.?Panlobular emphysema - J43.1???Notes :His pulmonary function test were interpreted as showing likely emphysema.? He has significant obstructive disease which did not improve with bronchodilators.??? Plan: * Treatment: 2.?COPD, moderate? Referral To:HILTON RUDD??Pulmonary Diseases ?Reason:Consult and Treat Exposure to Asbestos Right upper lobe pulmonary nodule 3.?Former smoker? Referral To:HILTON RUDD??Pulmonary Diseases ?Reason:Consult and Treat Exposure to Asbestos Right upper lobe pulmonary nodule 4.?Others? Continue Metoprolol Succinate ER Tablet Extended Release 24 Hour, 100 MG, 1 tablet, Orally, Once a day;?Continue PreserVision AREDS 2 Capsule, -, as directed, Orally, Twice a day;?Continue rOPINIRole HCl Tablet, 2 MG, 1 tablet 1 to 3 hours before bedtime, Orally, Once a day;?Continue Spironolactone Tablet, 25 MG, 1 tablet, Orally;?Continue Albuterol Sulfate Nebulization Solution, (2.5 MG/3ML) 0.083%, 3 mL as needed, Inhalation, every 6 hrs;?Continue Albuterol Sulfate HFA Aerosol Solution, 108 (90 Base) MCG/ACT, 1 puff as needed, Inhalation, every 4 hrs;?Continue Pantoprazole Sodium Tablet Delayed Release, 40 MG, 1 tablet 1 hour before morning meal, Orally, Once a day;?Continue Eliquis Tablet, 5 MG, as directed, Orally;?Continue dilTIAZem HCl ER Beads Capsule Extended Release 24 Hour, 240 MG, TAKE 1 CAPSULE BY MOUTH EVERY MORNING, Oral;?Continue Atorvastatin Calcium Tablet, 20 MG, TAKE 1 TABLET BY MOUTH EVERY EVENING, Oral;?Continue Spiriva Respimat Aerosol Solution, 2.5 MCG/ACT, INHALE 1 SPRAY BY MOUTH EVERY DAY DIRECTED, Inhalation;?Continue Furosemide Tablet, 20 MG, TAKE 1 TABLET BY MOUTH TWICE DAILY, Oral.?? * Procedure Codes:? * Preventive Medicine:? ??Counseling:?Smoking/Tobacco Use?Patient counseled on the dangers of tobacco use and urged to quit.?03/28/2024 ??COPD Care Plan:?Patient Lifestyle Goals?Be able to be more active with friends and family, Reduce number of ED and hospitalizations, Relieve symptoms and improve quality of life.?Treatment Goals?Exercise to help whole body, including lungs, Eat a nutritious diet and increase water consumption to 6-8 glasses a day.?Barriers?no barriers.?Self-Managment Goals?Get an air purifier for the rooms you are in the most, Eat a healthy diet.? * Follow Up:?3 1/2 Months ([place] son: OV) * Images: * Sign off status: Completed true * Provider:?Yony Reynaga MD Date:?06/2024 Generated for Nancy zapata/Kvng/Harpalsmitting on:?04/04/2024 11:32 AM EST History and Physical Notes * HPI [...] HEART: no clicks, gallops, murmurs, or rubs, regular rhythm, S1, S2 normal, no s3, or vascular bruits LUNGS: Very diminished lung sounds,, rhonchi on the RIGHT, rhonchi on the [...] extremities unremark able, no clubbing, cyanosis or edema, Crepitus both knees LYMPH NODES: no enlarged lymph no brad,spleen normal RECTAL EXAM: not examined PSYCH: alert, oriented, anx ious appearing ORAL CAVITY: normal, unremarkable Consultation Request Notes Referral Date Referring Provider Referred Provider Not es 03/28/2024 Yony Reynaga MIGUEL Consult a nd Treat Exposure to Asbestos Right upper lobe pulmonary nodule
--- OUTSIDE RECORDS SUMMARY | 2024-04-04 11:32 | XMS_ITS ---
Author Organization Yony Reynaga III, MD Address [address] [place] [address] [place] [address] Care Team Providers Care Bpo Specialist Name Role Phone Vicente Cifuentes MD Primary Care Provider Yony Tinsley Unavailable [phone] Allergies Allergen (clinical drug ingredient) Drug/Non Drug [...] Problem Status W/U Status Risk Notes Problem 577216249 Right upper lobe pulmonary nodule (R91.1) Active confirmed The right upper lobe lesion is PET negative. He is being referred to pulmonary for treatment of his lung disease and to follow this nodule. I have ordered a repeat CT scan of the chest in 3 months. Problem 424862247 COPD, moderate (J44.9) Active confirmed He is a nonsmoker but has COPD. He was breathing comfortably with an oxygen saturation 97%. He was continuing current medications. Problem 257102185 Chronic atrial fibrillation (I48.20) Active confirmed He is in an irregularly irregular rhythm today. Denies any recent chest pain. Problem 237453584 Anticoagulated (Z79.01) Active confirmed He has had no recent bleeding. He is to be anticoagulate d. Problem 106487961 Chronic GERD (K21.9) Active confirmed His reflux symptoms are controlled with medication. Problem 615122309 Peripheral edema (R60.0) Active confirmed Problem 925856634 Peripheral vascular disease (I73.9) Active confirmed He says he experiences claudication in one block. No lesions were seen on his feet. This issue will be managed by primary care. Problem 517046588 Mixed hyperlipidemia (E78.2) Active confirmed No change was made in his medical regimen today. Problem 29595434 Restless leg syndrome (G25.81) Active confirmed Problem 738598843301998 Localized osteoarthritis of knees, bilateral (M17.0) Active confirmed Problem 9137682 Former smoker (Z87.891) Active confirmed He is [...] Date Provider Diagnosis Yony Reynaga III, MD [address] [place] [address] [address] [place], [place] [address] 03/14/2024 Yony Reynaga Right upper lobe pulmonary [...] day Pending Test Test Name Order Date PFT with DLCO 03/14/2024 Next Appt Details Follow Up: after testing, Re ason: OV review PFT and Pet scan done at Provider Name:Yony Reynaga, 07/19/2024 10:30:00 AM, [address] [place] [address] [address] [place] [address], [place], [address], Progress Notes * LIZ WASHINGTONDOB: [birth year] (84 yo M)Acc No.[id number]:03/14/2024 Progress Notes Patient:?LIZ WASHINGTON Provider:?Yony Reynaga MD :1940???Age:84 Y???Sex:Male Con e:03/14/2024 Address:[address] [place], [place] [id number] Pcp:Vicente Cifuentes MD Subjective: * Chief Complaints: [...] THIGHS ?Imaging: PFT with DLCO * Procedure Codes:?39092 MEASU RE BLOOD OXYGEN LEVEL * Preventive [...] * Provider:?Yony Reynaga MD Date:?02/22 Generated for Nancy zapata/Kvng/Ramandeepitting on:?04/04/2024 11:32 AM EST History and Physical [...]
--- OUTSIDE RECORDS SUMMARY | 2024-04-04 11:32 | XMS_ITS ---
Author Organization [facility] Address [address] [place] [address] Care Team Providers Care Grinding Supervisor Name Role Phone Vicente Cifuentes MD Primary Care Provider Leo Abreu Unavailable [phone] Allergies No Known Allergies REASON FOR VISIT [...] 09/21/2023 Encounters Encounter Location Date Provider Diagnosis [facility] [place] [address] [place] [address] 09/21/2023 Leo Bella Other viral warts B07.8 [...] pin-point bleeding margins with sterile surgical blade (49478), silver nitrate chemocautery applied, recomm. Wartstick 40 percent Salicylic acid application under occlusion as directed Progress Notes * Mac WASHINGTON ADOB: [birth year] (83 yo M)Acc No.[id number]:09/21/2023 Progress Notes Patient:?Mac Washington Provider:?Leo Bella DPM :1940???Age:83 Y???Sex:Male Con e:09/21/2023 Address:[address] [place] [address], [facility] [place], [facility] Pcp:Vicente Cifuentes MD Subjective: * Chief Complaints: [...] pin-point bleeding margins with sterile surgical blade (24975), silver nitrate chemocautery applied, recomm. Wartstick 40 percent Salicylic acid application under occlusion as directed.? * Procedure Codes:?52023 Wart Destruction, 1-14, Modifiers: XS 16829 X-RAY EXAM OF RIGHT FOOT 3V, Modifiers: 26 , [id number] X-RAY EXAM OF LEFT FOOT 3V, Modifiers: 26 , [id number] AFO PLASTIC/OTH MATERIAL PREFAB, Modifiers: RT * [...] Interfil injection therapy, as well as surgical [place]/Endoscopic Fasciitomy surgical procedures if needed. Recommendations were [...] DPM Date:? 024 Generated for Nancy zapata/Kvng/Avery on:?04/04/2024 11:31 AM EST History and Physical Notes * [...]
--- OUTSIDE RECORDS SUMMARY | 2024-04-04 11:32 | XMS_ITS ---
Author Organization [facility] Address [address] [place] [address] Care Team Providers Care Smoking Pipes Cleaner Name Role Phone Vicente Cifuentes MD Primary Care Provider Leo Abreu Unavailable [phone] Allergies No Known Allergies REASON FOR VISIT [...] 10/27/2023 Encounters Encounter Location Date Provider Diagnosis [facility] [place] [address] [place] [address] 10/27/2023 Leo Bella Other viral warts B07.8 [...] pin-point bleeding margins with sterile surgical blade (12722), silver nitrate chemocautery applied Progress Notes * Mac WASHINGTON ADOB: [birth year] (83 yo M)Acc No.[id number]:10/27/2023 Progress Notes Patient:?Mac Washington Provider:?Leo Bella DPM :1940???Age:83 Y???Sex:Male Con e:10/27/2023 Address:[facility] [address], [id number] Pcp:Vicente Cifuentes MD Subjective: * Chief Complaints: [...] pin-point bleeding margins with sterile surgical blade (70934), silver nitrate chemocautery applied.? * Procedure Codes:?66877 Wart Destruction, 1-14, Modifiers: XS * Preventive [...] DPM Date:? 024 Generated for Nancy zapata/Kvng/eTranpaola on:?04/04/2024 11:32 AM EST History and Physical [...]
--- OUTSIDE RECORDS SUMMARY | 2024-04-04 11:32 | XMS_ITS | Patient Health Record ---
Author Organization Yony Reynaga III, MD Address [address] [place] [address] [place] [address] Care Team Providers Care Research Specialist Name Role Phone Vicente Cifuentes MD Primary Care Provider Yony [facility] [phone] Allergies Allergen (clinical drug ingredient) Drug/Non Drug Allergy documented on EMR Reaction Allergy Type Onset Date Status No Known Drug Allergy Unknown Drug Allergy Active Results Component Value Reference Range Notes PET CT fusion skull to thigh Reviewed date:03/28/2024 02:16:55 PM Interpretation: Performing Lab: Notes/Report: [address] [address] PET Report Signed Patient: Liz Washington MR#: [id number] : 1940 Acct:[id number] Age/Sex: 84 / M ADM Date: 03/20/24 Loc: HO.PET Attending Dr: Yony Reynaga MD Ordering Physician: Yony Reynaga MD Date of Service: 03/20/24 Procedure(s): PET CT fusion skull to thigh Accession Number(s): [id number] cc: Yony Reynaga MD; Vicente Cifuentes MD EXAMINATION: FLUORINE-18 FDG PET/CT SCAN CLINICAL INFORMATION: Right upper lobe nodule. TECHNIQUE: 60 minutes following the intravenous administration of 15.6 mCi of fluorine 18 FDG, images from the skull base to proximal thigh were obtained using a combined PET/CT scanner with CT scan based attenuation correction. No oral or intravenous contrast was administered. Transverse, coronal, sagittal, and volume reconstruction projections were obtained. The patient's blood glucose as determined by a finger stick, was 89 mg/dL immediately prior to injection. The radiotracer was injected intravenously through left antecubital vein, without any complications. Total CT exam dose-length product 501 mGy-cm. * These CT images were obtained using dose optimization techniques as appropriate, variously including the following: Automated exposure control * Adjustment of mA and/or kV according to patient size (this includes techniques or standardized protocols for targeted exams where dose is matched to indication/reason for exam; i.e. extremities or head) * Use of iterative reconstruction technique COMPARISON: CT chest 02/18/2024 FINDINGS: HEAD AND NECK: There is nonspecific abnormal activity seen in the left mandible last molar area likely related to inflammatory process or dental abscess. Correlate clinically. No large intracranial hemorrhage, acute territorial infarct or significant shift of midline structures. CHEST: Ports and Devices: None Lungs: There is diffuse emphysematous changes of both lungs with chronic apical parenchymal pleural thickening and scarring. Bullous changes are seen in right upper lobe. There is trace metabolic activity seen in right upper lobe anterior segment scarring [employer]TEGRATION [employer] background. No metabolically active lymph nodes in mediastinum or axilla. 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 Some of the plaques have mild metabolic activity especially the left lingular plaque on axial slice 173/2. There is no pleural effusion. Lymph Nodes: No tracer-avid mediastinal, hilar or internal mammary or axillary lymphadenopathy. Mediastinum: There is no significant pericardial effusion/thickening. Breasts/Chest Wall: No abnormal radiotracer uptake. ABDOMEN/PELVIS: No tracer activity seen in the abdomen or pelvis. Liver/Biliary System: No focal tracer-avid liver lesion. The gallbladder appears unremarkable. Pancreas: Normal. Spleen: No abnormal radiotracer uptake. No evidence of splenomegaly. Adrenal Glands: No abnormal radiotracer uptake. Kidneys: No hydronephrosis, hydroureter or renal calculi bilaterally. Bowel: There is moderate stool seen throughout the colon without significant distention. Few scattered colonic diverticuli are noted without diverticulitis.. The small bowel loops are normal caliber. Appendix is not visualized. There is no free air or free fluid. Lymph Nodes: No tracer avid retroperitoneal, mesenteric or pelvic and/or groin lymphadenopathy. Pelvic Organs: The urinary bladder is underdistended. The prostate gland is normal size. MUSCULOSKELETAL: There is abnormal FDG activity right anterior second rib which corresponds to a new fracture. Also visualized is moderate increased activity in mid to lower sternum. No lesion is seen however there is mild metabolic activity in the sternum VASCULAR: There is mild atherosclerotic changes of the thoracic arch. No aneurysmal dilatation. PET/PET CT fusion skull to thigh IMPRESSION: No abnormal FDG activity seen in the index lesion right upper lobe as was suspected on the previous CT chest 02/10/2024. In fact there is no abnormal metabolic activity seen in the lung parenchyma, mediastinum or the axilla. There is mild metabolic activity seen in the right anterior second rib which corresponds to a healing fracture and mid sternum were normal lesion is visualized on CT. This may represent area of bone contusion however metastatic lesion cannot be excluded but considered less likely. There is emphysema and chronic interstitial lung changes in both lungs. 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 The lingular calcified pleural plaque shows mild metabolic activity e. Moderate focal FDG activity left posterior mandible along the last molar tooth. Question inflammatory process. Correlate with clinical symptoms and CT if patient has any pain. Electronically signed by: Jan Dunne MD 03/22/2024 07:34 AM EST Dictated By: Jan Dunne MD Signed By: <Electronically signed by Jan Dunne MD in OV> 03/22/24 0734 DD/ 1415 TD/TT: 03/20/24 1600 Materials Management Supervisor: [place] [id number] PET Report Signed Patient: Raymond Washington MR#: [id number] : 1940 Acct:[id number] Age/Sex: 84 / M ADM Date: 03/20/24 Loc: HO.PET Attending Dr: Yony Reynaga MD Ordering Physician: Yony Reynaga MD Date of Service: 03/20/24 Procedure(s): PET CT fusion skull to thigh Accession Number(s): [id number] cc: Yony Reynaga MD; Vicente Cifuentes MD EXAMINATION: FLUORINE-18 FDG PET/CT SCAN CLINICAL INFORMATION: Right upper lobe nodule. TECHNIQUE: 60 minutes following the intravenous administration of 15.6 mCi of fluorine 18 FDG, taniya ges from the skull base to proximal thigh were obtained using a com bined PET/CT scanner with CT scan based attenuation correction. No oral or intravenous contrast was administered. Transverse, coronal, sagittal, and volume reconstruction projections were obtained. The p atient's blood glucose as determined by a finger stick, was 89 mg/dL immediately prior to injection. The radiotracer was injected intravenously through left antecubital vein, without any complications. Total CT exam dose-l ength product 501 mGy-cm. * These CT images we re obtained using dose optimization techniques as appropriate, various ly including the following: Automated exposure control * Adjustment of mA a nd/or kV according to patient size (this includes techniques or standa rdized protocols for targeted exams where dose is matched to indicatio n/reason for exam; i.e. extremities or head) * Use of iterative reconstruction technique COMPARISON: CT chest 02/18/2024 FINDINGS: HEAD AND NECK: There is nonspecific abnormal activity seen in the left mandible last molar area likely related to inflammatory process or dental abscess. Travon elate clinically. No large intracranial hemorrhage, acute territorial in farct or significant shift of midline structures. CHEST: Ports and Devices: None Lungs: There is diff use emphysematous changes of both lungs with chronic apical paren chymal pleural thickening and scarring. Bullous changes are seen in right upper lobe. There is trace metabolic activity seen in right upper lobe anterior segment scarring [employer]TEGRATION CONS[employer] background. No metabolically active lymph nodes in mediastinum or axilla. Pleura: There is sca ttered pleural thickening with bilateral calcified pleural plaques like ly from asbestosis exposure. Some of the plaques have mild metabolic activity especially the left lingular plaque on axial slice 173/2. T here is no pleural effusion. Lymph Nodes: No trac er-avid mediastinal, hilar or internal mammary or axillary lymphadenopathy. Mediastinum: There i s no significant pericardial effusion/thickening. Breasts/Chest Wall: No abnormal radiotracer uptake. ABDOMEN/PELVIS: No t racer activity seen in the abdomen or pelvis. Liver/Biliary System : No focal tracer-avid liver lesion. The gallbladder appears unremarkable. Pancreas: Normal. Spleen: No abnormal radiotracer uptake. No evidence of splenomegaly. Adrenal Glands: No a bnormal radiotracer uptake. Kidneys: No hydronep hrosis, hydroureter or renal calculi bilaterally. Bowel: There is mode rate stool seen throughout the colon without significant distenti on. Few scattered colonic diverticuli are noted without diverticulit is.. The small bowel loops are normal caliber. Appendix is not visu alized. There is no free air or free fluid. Lymph Nodes: No trac er avid retroperitoneal, mesenteric or pelvic and/or groin lymphadenopathy. Pelvic Organs: The u rinary bladder is underdistended. The prostate gland is normal size. MUSCULOSKELETAL: The re is abnormal FDG activity right anterior second rib which correspond s to a new fracture. Also visualized is moderate increased activity i n mid to lower sternum. No lesion is seen however there is mild metabo lic activity in the sternum VASCULAR: There is m ild atherosclerotic changes of the thoracic arch. No aneurysmal dilatation. P ET/PET CT fusion skull to thigh IMPRESSION: No abnormal FDG acti vity seen in the index lesion right upper lobe as was suspected on the previous CT chest 02/10/2024. In fact there is no abnormal metabolic a ctivity seen in the lung parenchyma, mediastinum or the axilla. There is mild metabo lic activity seen in the right anterior second rib which corresponds to a healing fracture and mid sternum were normal lesion is visualized on CT. This may represent area of bone contusion however metastatic l esion cannot be excluded but considered less likely. There is emphysema a nd chronic interstitial lung changes in both lungs. There is bilateral p leural calcification likely from asbestos exposure. The lingular calcifi ed pleural plaque shows mild metabolic activity e. Moderate focal FDG a ctivity left posterior mandible along the last molar tooth. Questio n inflammatory process. Correlate with clinical symptoms and CT if p atient has any pain. Electronically thang d by: Jan Dunne MD 03/22/2024 07:34 AM EST Dictated By: Jan Dunne MD Signed By: <Electron ically signed by Jan Dunne MD in OV> 03/22/24 0734 DD/ 1415 TD/TT: 03/20/24 1600 Materials Management Supervisor: LEONCIO Reason For Referral Reason Consult and Treat [...] Provider HILTON RUDD Referred Provider Specialty Pulmonary Di seases General Notes Lois Aragon 03/30/2024 01:41:44 PM > Faxed referral with progress note Referral Priority Routine Medications Medication SIG (Take, Route, Frequency, Duration) Notes Start Date End Date Status Albuterol Sulfate (2.5 MG/3ML) 0.083% 3 mL as needed Inhalation every 6 hrs Active Albuterol Sulfate HFA 108 (90 Base) MCG/ACT 1 puff as needed Inhalation every 4 hrs Active Pantoprazole Sodium 40 MG 1 tablet 1 dyana r before morning meal Orally Once a day Active Eliquis 5 MG as directed Orally Active dilTIAZem HCl ER Beads 240 MG TAKE 1 CAPSULE BY MOUTH EVERY MORNING Oral Active Atorvastatin Calcium 20 MG TAKE 1 TABLET BY MOUTH EVERY EVENING Oral Active Spiriva Respimat 2.5 MCG/ACT INHALE 1 SP RAY BY MOUTH EVERY DAY DIRECTED Inhalation Active Metoprolol Succinate ER 100 MG 1 tablet Orally Once a day Active Furosemide 20 MG TAKE 1 TABLET BY KATEY TH TWICE DAILY Oral Active PreserVision AREDS 2 - as directed Orall y Twice a day Active rOPINIRole HCl 2 MG [...] Problem Status W/U Status Risk Notes Problem 1768871 Former smoker (Z87.891) Active confirmed He is a former smoker. We made a plan to resist relapsing times stress or illness. Problem 573734774 Mixed hyperlipidemia (E78.2) Active confirmed No change was made in his medical regimen today. Problem 5802847 Panlobular emphysema (J43.1) Active confirmed His pulmonary function test were interpreted as showing likely emphysema. He has significant obstructive disease which did not improve with bronchodilato rs. Problem 801642927 Anticoagulated (Z79.01) Active confirmed He has had no recent bleeding. He is to be anticoagulate d. Problem 278038273 Peripheral vascular disease (I73.9) Active confirmed He says he experiences claudication in one block. No lesions were seen on his feet. This issue will be managed by primary care. Problem 83432080 Restless leg syndrome (G25.81) Active confirmed Problem 418461765 Chronic GERD (K21.9) Active confirmed His reflux symptoms are controlled with medication. Problem 008054257 Chronic atrial fibrillation (I48.20) Active confirmed He is in an irregularly irregular rhythm today. Denies any recent chest pain. Problem 996033665 Right upper lobe pulmonary nodule (R91.1) Active confirmed The right upper lobe lesion is PET negative. He is being referred to pulmonary for treatment of his lung disease and to follow this nodule. I have ordered a repeat CT scan of the chest in 3 months. 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 He was breathing comfortably with an oxygen saturation 97%. He was continuing current medications. 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) Active confirmed Vital Signs Heart Rate 85 /min 03/28/2024 Temperature 97.8 degrees Fahrenheit 03/28/2024 Oximetry 97 % 03/14/2024 Blood pressure diastolic 64 mm Hg 03/28/2024 Height 5'10 in 03/28/2024 Blood pressure systolic 121 mm Hg 03/28/2024 Weight 152 lbs 03/28/2024 BMI 21.81 kg/m2 03/28/2024 Encounters Encounter Location Date Provider Diagnosis Yony Reynaga III, MD [address] [place] [address] [place] [address] 03/14/2024 Yony Reynaga Right upper lobe pulmonary nodule R91.1 ; COPD, moderate J44.9 ; Chronic atrial fibrillation I48.20 ; Anticoagulated Z79.01 and Former smoker Z87.891 Yony Reynaga III, MD [address] [place] [address] [place] [address] 03/28/2024 Yony Reynaga Right upper lobe pulmonary [...] 97%. He was continuing current medications. 03/28/2024 Right upper lobe pulmonary nodule (ICD-10 [...] today. Denies any recent chest pain. 03/28/2024 Chronic atrial fibrillation (ICD-10 - I48.20) He is in an irregularly irregular rhythm today. Denies any recent chest pain. 03/14/2024 Anticoagulated (ICD-10 - Z79.01) He has had no recent bleeding. He is to be anticoagulated. 03/28/2024 Anticoagulated (ICD-10 - Z79.01) He has had no recent bleeding. He is to be anticoagulated. 03/14/2024 Former smoker (ICD-1 0 - Z87.891) He is a former smoker. We made a plan to resist relapsing times stress or illness. 03/28/2024 Chronic GERD (ICD-10 - K21.9) His [...] not improve with bronchodilators. Plan Of Treatment Pending Test Test Name Order Date CT CHEST WITH CONTRAST 03/28/2024 PFT with DLCO 03/14/2024 Next Appt Details Provider Name:Yony Reynaga, 07/19/2024 10:30:00 AM, [address] [place] [address] [address], [place], [address], Insurance Providers Payer Name Payer Address Payer Phone Subscriber Number Group Number Insured Name Patient Relationship to Insured Coverage Start Date Coverage End Date [address] [place] [phone] [id number] LIZ WASHINGTON Self - patient is the insured MEDICARE NGS [address] [place] [phone] [id number] LIZ WASHINGTON Self - patient is the insured Medical (General) History Medical History History ICD Code Right upper lobe 1.3 cm spiculated nodul e COPD Atrial fibrillation Pripheral edema GERD Carotid dicease Peripheral artery dicease Restless leg syndrome Hyperlipidemia Arthritis of the knee Anticoagulated with apixaban Emphysema L
--- OUTSIDE RECORDS SUMMARY | 2024-04-04 11:32 | XMS_ITS | Clinical Summary ---
Author Organization [facility] Facility Address [address] [place] [address] Care Team Providers Care Audit Manager Name Role Phone Unavailable Primary Care Provider [...] patient's age to complete this topic Insurance [place] [address]
== END 2024-04-04 10:19 | disposition home or self-care (01) ==
PROVIDERS: PCP Internal Medicine Medical Oncology; Referring Provider Internal Medicine Medical Oncology; Visit Provider Internal Medicine Pulmonary Disease
DX: J44.9 Chronic obstructive pulmonary disease, unspecified (principal); R91.1 Solitary pulmonary nodule
CPT/HCPCS: 99214

== ENCOUNTER → 2024-04-04 09:53 | Outpatient (BNVA) | payer MEDICARE, SELFPAY | PROVIDERS: PCP Internal Medicine Medical Oncology; Referring Provider Internal Medicine Medical Oncology; Visit Provider Internal Medicine Pulmonary Disease | DX: R91.1 Solitary pulmonary nodule (principal); J44.9 Chronic obstructive pulmonary disease, unspecified | CPT/HCPCS: 99212 ==

== ENCOUNTER 2024-05-09 09:29 | Outpatient (AMB) | payer MEDICARE, SELFPAY ==
[2024-05-09 09:34] VITALS: BP 118/62; PULSE 78; BMI 20.9
--- NOTE | 2024-05-09 09:34 | A.OFFVIS_ITS ---
Vital Signs 05/09/24 09:34 Height 5 ft 11 in Weight 149 lb 14.629 oz BMI 20.9 BP 118/62 Blood Pressure Location Lt brachial Position Sitting Pulse 78 Pulse Source Pulse Oximeter Intake Visit Reasons: 6 mth f/up Allergies No Known Allergies [NO KNOWN ALLERGIES] Allergy (Unknown, Verified 02/18/24 13:50) UNKNOWN Medication List - Last Reconciled 05/09/24 by Moshe Morgan MD albuterol sulfate 2.5 mg inhalation Q4H PRN albuterol sulfate 90 mcg/actuation 2 puffs inhalation Q6H PRN apixaban 5 mg PO BID atorvastatin 20 mg PO DAILY diltiazem HCl ER 240 mg PO DAILY diltiazem HCl ER 120 mg PO BEDTIME qmgfhzrsyhn-zfsysbiys-ijbfenzl 200-62.5-25 mcg (Trelegy Ellipta) 1 inh inhalation DAILY furosemide 20 mg PO BID metoprolol succinate ER 100 mg PO DAILY pantoprazole 40 mg PO DAILY 30 days ropinirole 2 mg PO DAILY spironolactone 12.5 mg (1/2 x 25 mg) PO DAILY 90 days HPI Comments Details: Pj comes for follow-up. He continues to have exertional shortness of breath and thick phlegm that bothers him. He was recently started on a new inhaler which seems to have helped but then because of the after taste he has stopped using them. He has started using his old inhaler and says he continues to have shortness of breath. He has not had any progressive heart failure symptoms including no weight gain, abdominal distention, leg edema, orthopnea, PND. No prolonged palpitation irregular heartbeat. No bleeding issues or neurologic olesya nts. [facility] Medical History COPD (chronic obstructive pulmonary disease) Pneumonia Pneumonia COPD (chronic obstructive pulmonary disease) with emphysema Chronic atrial fibrillation HTN (hypertension) Bilateral carotid artery disease Hyperlipidemia History of cardiomyopathy COPD (chronic obstructive pulmonary disease) History of cardioversion Surgical History History of tonsillectomy and adenoidectomy Hx of colonoscopy Hx of cardiac cath Family History Father Stroke CVD (cardiovascular disease) Mother Colon cancer Diabetes Sister Diabetes COPD (chronic obstructive pulmonary disease) Breast cancer Social History Household Members: Spouse Housing: House Do you presently have visiting nurse or other home services: No Patient Tobacco Use Status: Former Tobacco user Tobacco use type: Cigarette Advance Directives Date on File: 06/11/21 service: No 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al status: retired 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 Review of Systems Const Denies weakness ENT Denies dizziness Card Denies chest pain, Denies chest pain with activity, Denies syncope, Denies rapid heart rate, Denies pedal edema, Denies edema, Denies leg edema, Denies lightheadedness, Denies palpitations, Denies dyspnea, Denies dyspnea on exertion and Denies orthopnea Resp Denies cough, Denies dyspnea and Denies dyspnea on exertion GI Denies hematochezia and Denies change in stool character Musc Denies abnormal gait, Denies muscle cramps, Denies muscle weakness, Denies numbness, Denies radiating pain into limb and Denies tingling Neuro Denies abnormal gait, Denies dizziness, Denies syncope, Denies numbness, Denies tingling and Denies weakness Endo Denies palpitations Physical Exam Vital Signs: Last Vital Signs Pulse 78 05/09/24 09:34 BP 118/62 05/09/24 09:34 BMI result Body Mass Index 20.9 Const General: cooperative, comfortable, alert and awake Nutritional Appearance: average body habitus Orientation/consciousness: patient oriented x3 Limitations: no limitations Neck Neck: Yes trachea midline, Yes supple and Yes no JVD Chest Chest palpation & inspection: normal inspection of the chest Resp Effort & Inspection: normal respiratory effort Auscultation: no crackles, no rales, no rhonchi, no wheezes and diminished lung sounds Cardio Jugular venous distension: no JVD Palpation: normal PMI Rhythm: abnormal rhythm irregularly irregular Heart sounds: S1 normal heart sound present and S2 normal heart sound present GI Auscultation: normal bowel sounds Skin General skin exam: no rashes or lesions noted Neuro General: patient oriented x3 and no focal motor deficits Extrem General: No clubbing, No cyanosis and No edema Psych Appearance: grossly normal Assessment & Plan Assessment & Plan (1) (HFpEF) heart failure with preserved ejection fraction: Code(s): I50.30 - Unspecified diastolic (congestive) heart failure Category: Medical Plan: Heart failure preserved ejection fraction, clinically euvolemic and well compensated on current diuretic regimen as well as spironolactone therapy. Continue both. Continue aggressive rate control approach. Advised to switch his Lasix to once a day at 40 mg daily. Daily weight monitoring avoidance salt loading was discussed additional diuretics as need be. Continue to optimize pulmonary function and discussed with him about importance of pursuing pulmonary recommendation with new inhalers that should help with overall functioning and symptom improvement. Goals of therapy were discussed. Overall remains high risk for recurrent hospitalization related to his underlying severe pulmonary as well as underlying heart situation. (2) Chronic atrial fibrillation: Comment: failed maintenance of rhythm despite antiarrhythmic drug therapy and cardioversion. Maintained on rate control without obvious cardiac decompensation Code(s): I48.20 - Chronic atrial fibrillation, unspecified Category: Medical Plan: Chronic atrial fibrillation has failed rhythm control approach. Continue rate control with metoprolol as well as Cardizem therapy. Rate is adequately controlled. Given his chronic atrial fibrillation and atrial enlargement unlikely to pursue rhythm control approach. Continue full oral anticoagulation, currently on Eliquis 5 mg b.i.d.. Semi annual renal function test should be pursued. Will follow up in the clinic in 6 months time, sooner p.r.n.. Thank you for allowing me to partake in his care Coding Level of Care Code Est Pt Level 4 (00172) Complex EM visit Add On G2211 Diagnoses (HFpEF) heart failure with preserved ejection fraction I50.30 Chronic atrial fibrillation I48.20
--- OUTSIDE RECORDS SUMMARY | 2024-05-09 10:28 | XMS_ITS | Patient Health Record ---
Author Organization Yony Reynaga III, MD Address [address] [place] [address] [place] [address] Care Team Providers Care Blacksmith Supervisor Name Role Phone Vicente Cifuentes MD Primary Care Provider Yony Tinsley [facility] [phone] Allergies Allergen (clinical drug ingredient) Drug/Non Drug Allergy documented on EMR Reaction Allergy Type Onset Date Status No Known Drug Allergy Unknown Drug Allergy Active Results Component Value Reference Range Notes PET CT fusion skull to thigh Reviewed date:03/28/2024 02:16:55 PM Interpretation: Performing Lab: Notes/Report: [address] [address] PET Report Signed Patient: Liz Washington MR#: [id number] : 1940 Acct:[id number] Age/Sex: 84 / M ADM Date: 03/20/24 Loc: HO.PET Attending Dr: Yony Reynaga MD Ordering Physician: Yony Reynaga MD Date of Service: 03/20/24 Procedure(s): PET CT fusion skull to thigh Accession Number(s): [id number] cc: Yony Reynaga MD; Vicente Cifuentes MD [...] in right upper lobe anterior segment scarring 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 No metabolically active lymph nodes in [...] 03/22/24 0734 DD/ 1415 TD/TT: 03/20/24 1600 Lawn Care Worker: LEONCIO Reason For Referral Reason Consult and [...] referral with progress note Referral Priority Routine Referral Appointment Date 04/04/2024 Medications Medication SIG (Take, Route, Frequency, Duration) [...] Problem Status W/U Status Risk Notes Problem 2483657 Former smoker (Z87.891) Active confirmed He is a former smoker. We made a plan to resist relapsing times stress or illness. Problem 101264451 Mixed hyperlipidemia (E78.2) Active confirmed No change was made in his medical regimen today. 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 He has significant obstructive disease which did not improve with bronchodilato rs. Problem 377094990 Anticoagulated (Z79.01) Active confirmed He has had no recent bleeding. He is to be anticoagulate d. Problem 967175410 Peripheral vascular disease (I73.9) Active confirmed He says he experiences claudication in one block. No lesions were seen on his feet. This issue will be managed by primary care. Problem 85376636 Restless leg syndrome (G25.81) Active confirmed Problem 099683281 Chronic GERD (K21.9) Active confirmed His reflux symptoms are controlled with medication. Problem 398153655 Chronic atrial fibrillation (I48.20) Active confirmed He is in an irregularly irregular rhythm today. Denies any recent chest pain. Problem 991530000 Right upper lobe pulmonary nodule (R91.1) Active confirmed The right upper lobe lesion is PET negative. He is being referred to pulmonary for treatment of his lung disease and to follow this nodule. I have ordered a repeat CT scan of the chest in 3 months. 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 He was breathing comfortably with an oxygen saturation 97%. He was continuing current medications. 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) Active confirmed Vital Signs Heart Rate 85 /min 03/28/2024 Temperature 97.8 degrees Fahrenheit 03/28/2024 Oximetry 97 % 03/14/2024 Blood pressure diastolic 64 mm Hg 03/28/2024 Height 5'10 in 03/28/2024 Blood pressure systolic 121 mm Hg 03/28/2024 Weight 152 lbs 03/28/2024 BMI 21.81 kg/m2 03/28/2024 Encounters Encounter Location Date Provider Diagnosis Yony Reynaga III, MD [address] [place] [address] [place] [address] 03/14/2024 Yony Reynaga Right upper lobe pulmonary nodule R91.1 ; COPD, moderate J44.9 ; Chronic atrial fibrillation I48.20 ; Anticoagulated Z79.01 and Former smoker Z87.891 Yony Reynaga III, MD [address] [place] [address] [place] [address] 03/28/2024 Yony Reynaga Right upper lobe pulmonary [...] Details Provider Name:Yony Reynaga, 07/19/2024 10:30:00 AM, [address] [place] [address] [address] KIM, [place], [address], Insurance Providers Payer Name Payer Address Payer Phone Subscriber Number Group Number Insured Name Patient Relationship to Insured Coverage Start Date Coverage End Date [address] [facility] [place] [phone] [id number] LIZ WASHINGTON Self - patient is the insured MEDICARE NGS [address] [facility] [phone] [id number] LIZ WASHINGTON Self - patient is the insured Medical (General) History Medical History History ICD Code Right upper lobe 1.3 cm spiculated nodul e COPD Atrial fibrillation Pripheral edema GERD Carotid dicease Peripheral artery dicease Restless leg syndrome Hyperlipidemia Arthritis of the knee Anticoagulated with apixaban Emphysema L
--- OUTSIDE RECORDS SUMMARY | 2024-05-09 10:28 | XMS_ITS | Patient Health Record ---
Author Organization [facility] Address [address] [place] [address] Care Team Providers Care Shoes Salesperson Name Role Phone Vicente Cifuentes MD Primary Care Provider Leo Abreu Unavailable [phone] Allergies No Known Allergies Reason For Referral [...] 10/27/2023 Encounters Encounter Location Date Provider Diagnosis [address] [address] 09/21/2023 Leo Bella Other viral warts B07.8 ; Pain in left foot M79.672 ; Pain in right foot M79.671 ; Plantar fascial fibromatosis M72.2 ; Metatarsalgia, left foot M77.42 ; Metatarsalgia, right foot M77.41 ; Tinea unguium B35.1 and Ingrowing nail L60.[address] [address] 10/27/2023 Leo Bella Other viral warts B07.8 ; Pain in left foot M79.672 ; Pain in right foot M79.671 ; Plantar fascial fibromatosis M72.2 ; Metatarsalgia, left foot M77.42 ; Metatarsalgia, right foot M77.41 ; Tinea unguium B35.1 and Ingrowing nail L60.[address] [address] 09/21/2023 Leo Bella Assessments Encounter Date Diagnosis [...] Date [employer] [place] Medicare Advantage [facility] [address] [place] [address] [phone] [id number] Mac Marsh Self - patient is the insured Medical (General) History Medical History History ICD Code Angina asthma Back,Hip,and Knee pain Broken bones Cancer Cataracts Headaches/Migraines Hepatitis Lung disease Macular degeneration Tuberculosis Chicken pox Transfusions Surgical History Surgery Date(Month/Year) carpal tunnel surgery 10/14/22 cancer surgery 2009
--- OUTSIDE RECORDS SUMMARY | 2024-05-09 10:28 | XMS_ITS ---
Author Organization [facility] Address [address] [place] [address] Care Team Providers Care Shoe Packer Name Role Phone Vicente Cifuentes MD Primary Care Provider Leo Abreu [phone] REASON FOR VISIT dispense [phone] Encounters Encounter Location Date Provider Diagnosis [facility] [address] [place] [address] 09/21/2023 Leo Bella Plan Of Treatment No Information Progress Notes * Mac WASHINGTON ADOB: [birth year] (83 yo M)Acc No.[id number]:09/21/2023 Patient:?Mac Washington :1940???Age:83 Y???Sex:Male Address:[address] [place] [address] * true * Date:? Generated for Printi benny/Kvgn/eTransmitting on:?05/09/2024 10:28 AM EDT
--- OUTSIDE RECORDS SUMMARY | 2024-05-09 10:28 | XMS_ITS ---
Author Organization [facility] Address [address] [place] [address] Care Team Providers Care Tissue Coordinator Name Role Phone Vicente Cifuentes MD Primary Care Provider Leo Abreu Unavailable [phone] Allergies No Known Allergies REASON FOR VISIT [...] 09/21/2023 Encounters Encounter Location Date Provider Diagnosis [facility] [address] [place] [address] 09/21/2023 Leo Bella Other viral warts B07.8 [...] pin-point bleeding margins with sterile surgical blade (31804), silver nitrate chemocautery applied, recomm. Wartstick 40 percent Salicylic acid application under occlusion as directed Progress Notes * Mac WASHINGTON ADOB: [birth year] (83 yo M)Acc No.[id number]:09/21/2023 Progress Notes Patient:?Mac Washington Provider:?Leo Bella DPM :1940???Age:83 Y???Sex:Male Con e:09/21/2023 Address:[address] [place] [address], [facility] [place], [id number] Pcp:Vicente Cifuentes MD Subjective: * Chief Complaints: [...] pin-point bleeding margins with sterile surgical blade (16387), silver nitrate chemocautery applied, recomm. Wartstick 40 percent Salicylic acid application under occlusion as directed.? * Procedure Codes:?58417 Wart Destruction, 1-14, Modifiers: XS 81538 X-RAY EXAM OF RIGHT FOOT 3V, Modifiers: 26 , [id number] X-RAY EXAM OF LEFT FOOT 3V, Modifiers: 26 , [id number] AFO PLASTIC/OTH MATERIAL PREFAB, Modifiers: RT * [...] Interfil injection therapy, as well as surgical Harrold/Endoscopic Fasciitomy surgical procedures if needed. Recommendations were [...] DPM Date:? 024 Generated for Nancy zapata/Kvng/Avery on:?05/09/2024 10:28 AM EDT History and Physical Notes * HPI (History [...]
--- OUTSIDE RECORDS SUMMARY | 2024-05-09 10:28 | XMS_ITS ---
Author Organization Yony Reynaga III, MD Address [address] [place] [address] [place] [address] Care Team Providers Care Copy Center Operator Name Role Phone Vicente Cifuentes MD Primary Care Provider Yony Tinsley Unavailable [phone] Allergies Allergen (clinical drug ingredient) Drug/Non Drug [...] Provider HILTON RUDD Referred Provider Specialty Pulmonary [facility] Notes Lois Aragon 03/30/2024 01:41:44 PM > Faxed referral with progress note Referral Priority Routine Referral Appointment Date 04/04/2024 REASON FOR VISIT Right upper lobe pulmonary [...] BY KATEY TH TWICE DAILY Oral Active Albuterol Sulfate [...] Problem Status W/U Status Risk Notes Problem 9352053 Panlobular emphysema (J43.1) Active confirmed His pulmonary [...] Date Provider Diagnosis Yony Reynaga III, MD [address] [place] [address] [place] [address] 03/28/2024 Yony Reynaga Right upper lobe pulmonary [...] Asbestos Right upper lobe pulmonary nodule, HILTON BLAIRE Next Appt Details Follow Up: 3 1/2 Months, Aida son: OV Provider Name:Yony Reynaga, 07/19/2024 10:30:00 AM, [address] [place] [address], [place] [address], [place], [address], Progress Notes * JUANPABLOFROYLAN LIZDOB: 2 (84 yo M)Acc No.[id number]:03/28/2024 Progress Notes Patient:?LIZ WASHINGTON Provider:?Yony Reynaga MD :1940???Age:84 Y???Sex:Male Con e:03/28/2024 Address:[address] [place], [place] [address] Pcp:Vicente Cifuentes MD Subjective: * Chief Complaints: [...] Objective: * Vitals:?Ht: 5'10 , Wt:152, B HI:21.81, BP:121/64, HR:85, Temp:97.8, Ht-cm: 177.8, Wt-k.95. * [...] healthy diet.? * Follow Up:?3 1/2 Months (Aida son: OV) * Images: * Sign off status: Completed true * Provider:?Yony Reynaga MD Date:?06/2024 Generated for Nancy zapata/Kvng/Ramandeepitting on:?05/09/2024 10:28 AM EDT History and Physical [...]
--- OUTSIDE RECORDS SUMMARY | 2024-05-09 10:29 | XMS_ITS | Clinical Summary ---
Author Organization [facility] Address [address] [place] [address] Care Team Providers Care News Librarian Name Role Phone Unavailable Primary Care Provider [...] patient's age to complete this topic [place] [address] [place] [address]
--- OUTSIDE RECORDS SUMMARY | 2024-05-09 10:29 | XMS_ITS ---
Author Organization Yony Reynaga III, MD Address [address] [place] [address] [place] [address] Care Team Providers Care Mineral Engineer Name Role Phone Vicente Cifuentes MD Primary Care Provider Yony Tinsley Unavailable [phone] Allergies Allergen (clinical drug ingredient) Drug/Non Drug [...] Problem Status W/U Status Risk Notes Problem 956723714 Right upper lobe pulmonary nodule (R91.1) Active confirmed The right upper lobe lesion is PET negative. He is being referred to pulmonary for treatment of his lung disease and to follow this nodule. I have ordered a repeat CT scan of the chest in 3 months. Problem 545629399 COPD, moderate (J44.9) Active confirmed He is a nonsmoker but has COPD. He was breathing comfortably with an oxygen saturation 97%. He was continuing current medications. Problem 366197239 Chronic atrial fibrillation (I48.20) Active confirmed He is in an irregularly irregular rhythm today. Denies any recent chest pain. Problem 299847541 Anticoagulated (Z79.01) Active confirmed He has had no recent bleeding. He is to be anticoagulate d. Problem 499281489 Chronic GERD (K21.9) Active confirmed His reflux symptoms are controlled with medication. Problem 789421707 Peripheral edema (R60.0) Active confirmed Problem 128302096 Peripheral vascular disease (I73.9) Active confirmed He says he experiences claudication in one block. No lesions were seen on his feet. This issue will be managed by primary care. Problem 205629130 Mixed hyperlipidemia (E78.2) Active confirmed No change was made in his medical regimen today. 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) Active confirmed Problem 9896030 Former smoker (Z87.891) Active confirmed He is [...] Date Provider Diagnosis Yony Reynaga III, MD [address] [place] [address] [address] [place], [place] [address] 03/14/2024 Yony Reynaga Right upper lobe pulmonary [...] at Provider Name:Yony Reynaga, 07/19/2024 10:30:00 AM, [address] [place] [address] [address] [place] [address], [place], [address], Progress Notes * LIZ WASHINGTONDOB: [birth year] (84 yo M)Acc No.[id number]:03/14/2024 Progress Notes Patient:?LIZ WASHINGTON Provider:?Yony Reynaga MD :1940???Age:84 Y???Sex:Male Con e:03/14/2024 Address:[address] [place], [place] [id number] Pcp:Vicente Cifuentes MD Subjective: * Chief Complaints: * ???spiculated RLL nodule 1.3 cmFormer smoker * HPI: ???COVID-19 Screening:? He is a very pleasant 84-year-old gentleman whose primary care physician is Dr. Vciente Cifuentes.? He recently had a chest x-ray [...] THIGHS ?Imaging: PFT with DLCO * Procedure Codes:?08627 MEASU RE BLOOD OXYGEN LEVEL * Preventive [...] Reynaga MD Date:?02/22 Generated for Nancy zapata/Kvng/Ramandeepitting on:?05/09/2024 10:28 AM [...]
--- OUTSIDE RECORDS SUMMARY | 2024-05-09 10:29 | XMS_ITS ---
Author Organization [facility] Address [address] [place] [address] Care Team Providers Care Architecture Faculty Member Name Role Phone Vicente Cifuentes MD Primary Care Provider Leo Abreu Unavailable [phone] Allergies No Known Allergies REASON FOR VISIT [...] 10/27/2023 Encounters Encounter Location Date Provider Diagnosis [facility] [address] [place] [address] 10/27/2023 Leo Bella Other viral warts B07.8 [...] pin-point bleeding margins with sterile surgical blade (49082), silver nitrate chemocautery applied Progress Notes * Mac WASHINGTON ADOB: [birth year] (83 yo M)Acc No.[id number]:10/27/2023 Progress Notes Patient:?Mac Washington Provider:?Leo Bella DPM :1940???Age:83 Y???Sex:Male Con e:10/27/2023 Address:[facility] [address], [place] Pcp:Vicente Cifuentes MD Subjective: * Chief Complaints: [...] pin-point bleeding margins with sterile surgical blade (41899), silver nitrate chemocautery applied.? * Procedure Codes:?30594 Wart Destruction, 1-14, Modifiers: XS * Preventive [...] Bella DPM Date:? 024 Generated for Nancy zapata/Kvng/eTransmaydee on:?05/09/2024 10:28 AM EDT History and Physical [...]
== END 2024-05-09 09:53 | disposition home or self-care (01) ==
LOC: HO.HCS 09:29
PROVIDERS: PCP Internal Medicine; Visit Provider Internal Medicine Cardiovascular Disease
DX: I50.30 Unspecified diastolic (congestive) heart failure (principal); I48.20 Chronic atrial fibrillation, unspecified
CPT/HCPCS: 99214; G2211

== ENCOUNTER → 2024-05-09 09:29 | Outpatient (BNVA) | payer MEDICARE, SELFPAY | PROVIDERS: PCP Internal Medicine; Visit Provider Internal Medicine Cardiovascular Disease | DX: I50.30 Unspecified diastolic (congestive) heart failure (principal); I48.20 Chronic atrial fibrillation, unspecified | CPT/HCPCS: 99212 ==

== ENCOUNTER 2024-05-17 13:16 | Inpatient (IN) | payer MEDICARE, SELFPAY ==
[2024-05-17] VITALS (11 sets, daily range): BP systolic 116–133; BP diastolic 56–76; PULSE 84–101; RESP 16–24; TEMP 36.1–37.2; O2SAT 71–97; BMI 25.1
--- NOTE | ~2024-05-17 | XR_ITS ---
EXAMINATION: XR CHEST 2 VIEWS HISTORY: hypoxia COMPARISON: Comparison is made with the prior examination dated 08/18/2023. FINDINGS: PA and lateral views of the chest are submitted. The lungs remain hyperinflated. Extensive bilateral scarring and nodularity is again noted. There is a new airspace opacity in the right lower lobe, consistent with pneumonia. There is biapical pleural and parenchymal scarring, right greater than left. There is no pleural effusion, pneumothorax, or pulmonary vascular congestion. The heart is normal in size. The aorta is calcified. There is degenerative disc disease of the spine. XR/XR chest 2V IMPRESSION: COPD and extensive bilateral lung scarring. Right lower lobe pneumonia. Follow-up is recommended to document resolution. Electronically signed by: Yony Jamies MD 05/17/2024 02:02 PM EDT
--- NOTE | 2024-05-17 13:26 | ED_ITS ---
HPI - General Adult General Chief complaint: Dyspnea Stated complaint: diff breathing Time Seen by Provider: 05/17/24 14:14 Source: patient Mode of arrival: ambulatory Limitations: no limitations History of Present Illness HPI narrative: This is an 84-year-old man with a past medical history of PVD, afib Eliquis, COPD, HTN, HLD, CHF who presents for evaluation of cough and dyspnea. Patient reports feeling sick for the last 1 week. He states no fevers, reports chills. He states increased cough frequency and sputum production. He states no hemoptysis. He states no chest pain. He states no leg swelling or pain. He states no GI or symptoms. He states no trauma. He states no headache or myalgias. Related Data Home Medications ?Medication ?Instructions ?Recorded ?Confirmed albuterol sulfate 2.5 mg/3 mL 2.5 mg inhalation Q4H PRN 01/28/20 05/09/24 (0.083 %) solution for nebulization Shortness Of Breath albuterol sulfate 90 mcg/actuation 2 puff inhalation Q6H PRN 01/28/20 05/09/24 aerosol inhaler Shortness Of Breath Or Wheezing apixaban 5 mg tablet 5 mg PO BID 01/28/20 05/09/24 diltiazem HCl 240 mg capsule,24 240 mg PO DAILY 08/04/21 05/09/24 hr,extended release ropinirole 2 mg tablet 2 mg PO DAILY 08/04/21 05/09/24 diltiazem HCl 120 mg capsule,24 120 mg PO BEDTIME 02/01/22 05/09/24 hr,extended release furosemide 20 mg tablet 20 mg PO BID 02/01/23 05/09/24 fluticasone fur. 200 mcg-umeclid 1 ea inhalation DAILY 05/17/24 05/17/24 62.5 mcg-vilant 25 mcg inhalat.powder (Trelegy Ellipta) Previous Rx's ?Medication ?Instructions ?Recorded atorvastatin 20 mg tablet 20 mg PO DAILY #90 tabs 11/23/21 pantoprazole 40 mg tablet,delayed 40 mg PO DAILY 30 days #30 tabs 10/26/23 release spironolactone 25 mg tablet 12.5 mg (1/2 x 25 mg) PO DAILY 90 01/03/24 days #45 tabs metoprolol succinate 100 mg 100 mg PO DAILY #90 tabs 03/26/24 tablet,extended release 24 hr Allergies Allergy/AdvReac Type Severity Reaction Status Date / Time No Known Allergies Allergy Unknown UNKNOWN Verified 05/17/24 13:34 [NO KNOWN ALLERGIES] Review of Systems 2 Review of Systems: ROS as per HPI [facility] Past Medical History Medical History COPD (chronic obstructive pulmonary disease) Pneumonia Pneumonia COPD (chronic obstructive pulmonary disease) with emphysema Chronic atrial fibrillation HTN (hypertension) Bilateral carotid artery disease Hyperlipidemia History of cardiomyopathy COPD (chronic obstructive pulmonary disease) History of cardioversion Surgical History History of tonsillectomy and adenoidectomy Hx of colonoscopy Hx of cardiac cath Family History Family History Father Stroke CVD (cardiovascular disease) Mother Colon cancer Diabetes Sister Diabetes COPD (chronic obstructive pulmonary disease) Breast cancer Social History Social History Household Members: Spouse Housing: House Do you presently have visiting nurse or other home services: No Patient Tobacco Use Status: Former Tobacco user Tobacco use type: Cigarette Smoked in Last 30 Days: No Advance Directives: No Advance Directives Information Provided: Yes Advance Directives Date on File: 06/11/21 Do you have a plan to hurt others: No Plan service: No 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al status: retired 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 Physical Exam ED Vital Signs: Vital Signs - 24 hr 05/17/24 13:25 05/17/24 13:54 05/17/24 13:55 Temperature 96.9 F Pulse Rate 91 85 Respiratory Rate 24 H 22 H Blood Pressure 130/76 132/60 Pulse Oximetry 71 L 85 L 91 L Oxygen Delivery Method Room Air Room Air Oxymask Oxygen Flow Rate 6 05/17/24 14:05 05/17/24 14:06 05/17/24 14:50 Temperature Pulse Rate 93 Respiratory Rate 20 24 H Blood Pressure Pulse Oximetry 97 97 Oxygen Delivery Method Oxymask Oxymask Oxygen Flow Rate 4 2 05/17/24 15:43 Temperature 98.9 F Pulse Rate 101 H Respiratory Rate 16 Blood Pressure 133/67 Pulse Oximetry 92 Oxygen Delivery Method Non-Rebreather Mask Oxygen Flow Rate 2 BMI result Body Mass Index 25.1 Gen: NAD, AOx3 HEENT: NCAT, EOMI, normal conjunctiva CV: RRR Pulm: Scattered expiratory wheezes, no respiratory distress or increased work of breathing at rest GI: Soft, NTND, no rebound, guarding or rigidity Neuro: Grossly non focal Course Course Course Narrative: This is a rapid medical exam performed by Dhaval Peterson ENGAGEMENT ENGINEER: Additional HPI, ROS, PE not included below will be deferred to primary provider. Patient is an 84-year-old male with history of COPD, afib, HFpEF, GERD presenting with shortness of breath for the past week, worse over the past few days. Increased WOB in triage, sat 73% room air. O2 applied. Charge notified. Plan: EKG, labs Medications Administered Generic Name Dose Route Start Last Admin Trade Name Freq PRN Reason Stop Dose Admin Azithromycin 500 mg/ Sodium 250 mls @ 125 mls/hr 05/17/24 14:27 05/17/24 15:20 Chloride IV 05/17/24 16:26 125 mls/hr ONCE ONE Administration Discontinued Medications Generic Name Dose Route Start Last Admin Trade Name Freq PRN Reason Stop Dose Admin Ceftriaxone Sodium 1 gm 05/17/24 14:27 05/17/24 15:20 Ceftriaxone Sodium 1 Gm Vial IVPUSH 05/17/24 14:28 1 gm ONCE ONE Administration Albuterol Sulfate 2.5 mg/ 0 mg 05/17/24 14:41 05/17/24 14:46 Albuterol/Ipratropium 3 ml INHALE 05/17/24 14:42 5 dose ONCE ONE Administration Lactated Ringer's 1,000 mls @ 999 mls/hr 05/17/24 14:33 05/17/24 15:27 Lr IV 05/17/24 15:33 Not Given .Q1H1M ONE Methylprednisolone Sodium Succinate 125 mg 05/17/24 14:28 05/17/24 15:20 Methylprednisolone Sod Succ 125 Mg/2 Ml Vial IVPUSH 05/17/24 14:29 125 mg ONCE ONE Administration Medical Decision Making Medical Decision Making [facility] Narrative: Differential diagnosis includes, but is not limited to COPD exacerbation, viral URI, pneumonia, sepsis. Patient is afebrile and hemodynamically stable and found to have new oxygen requirement saturating well on OxyMask and is tachypneic with respiration rate greater than 20 with leukocytosis and has a suspected source of infection thus meeting sepsis criteria. Exam is is notable for expiratory wheezes consistent with a bronchospasm for which the patient is provided nebulized bronchodilators and Solu-Medrol due to concern for COPD exacerbation. I reviewed the patient's x-ray, viral testing, blood work and EKG as below. The patient is treated for community-acquired pneumonia with ceftriaxone and azithromycin Patient is provided 1 L IV LR at 999 cc/hour and not provided 30 cc/kilos IV fluid bolus due to concern for fluid overload in the setting heart failure. Further, patient maintaining MAP greater than 65 mm Hg. I discussed the patient's case and management with admitting hospitalist, Dr. Pineda, who accepts the patient for admission and for further workup and management. Critical Care Time: A total of 35 minutes spent in direct patient care with coordinating critical resuscitation, procedures, reviewing records, discussing with consultants, reviewing labs, and/or managing patient. Admission/Observation Consideration of admission/observation: Escalation of care including admission/observation considered Consult Healthcare Provider Management of the patient was discussed with: Hospitalist I discussed the patient's case and management with admitting hospitalist, Dr. Pineda, who accepts the patient for further workup and management Lab Data MDM Lab Attestation statement: I reviewed the patient's lab results. Per my interpretation, labs notable for leukocytosis of 16.4 in keeping with pneumonia, stable chronic anemia with hemoglobin 13.9 (previous 13.6), venous blood gas with no acid-base derangement, lactic acid 2.6, BNP 536. The patient tests negative for COVID-19, influenza and RSV 05/17/24 14:03 05/17/24 14:54 Labs: Lab Results 05/17/24 05/17/24 05/17/24 Range/Units 14:03 14:05 14:07 WBC 16.4 H (4.8-10.8) X10*3/uL RBC 4.64 (4.60-5.80) X10*6/uL Hgb 13.9 L (14.0-18.0) g/dl Hct 41.9 L (42.0-52.0) % MCV 90.3 (80.0-98.0) fL MCH 30.0 (27.0-33.0) pg MCHC 33.2 (31.0-36.0) g/dl RDW 14.0 (11.0-16.0) % Plt Count 255 (160-400) X10*3/uL MPV 9.0 L (9.4-12.4) fL Immature Gran % (Auto) 0.5 H (0.0-0.4) % Neut % (Auto) 81.2 H (45-73) % Lymph % (Auto) 6.1 L (20-40) % [place] % (Auto) 11.9 H (2-11) % Eos % (Auto) 0.1 (0-4) % Baso % (Auto) 0.2 (0-2) % Lymph # (Auto) 1.0 L (1.2-4.9) X10*3/uL [place] # (Auto) 2.0 H (0.1-1.2) X10*3/uL Eos # (Auto) 0.0 (0.0-0.4) X10*3/uL Baso # (Auto) 0.0 (0.0-0.2) X10*3/uL Abs Immat Gran (auto) 0.09 H (0.00-0.03) X10*3/uL Absolute Neuts (auto) 13.3 H (2.0-8.3) x10*3/uL Absolute Nucleated RBC 0.000 (0.0-0.012) X10*3/uL Nucleated RBC % (auto) 0.0 (0.0-0.2) /100WBC Smear Tech's Comments VERIFIED PT (10.9-12.4) SEC INR (0.9-1.1) APTT (26.0-36.8) SEC VBG pH Cancelled 7.35 VBG pCO2 Cancelled 73 VBG pO2 Cancelled 32 VBG HCO3 Cancelled 41 H VBG O2 Saturation Cancelled 41.0 VBG Base Excess Cancelled 11.7 Sodium 136 (135-145) mmol/L Potassium 4.6 (3.3-5.1) mmol/L Chloride 96 (96-108) mmol/L Carbon Dioxide 33 H (22-29) mmol/L Anion Gap 12 (12-20) BUN 25 H (9-16) mg/dL Creatinine 1.01 (0.5-1.4) mg/dL Estim Creat Clear Calc 58.2 Estimated GFR > 60 Random Glucose 108 (60-115) mg/dL Lactic Acid (0.5-2.0) mmol/L Calcium 9.2 D (8.4-10.2) mg/dL Magnesium 1.8 (1.6-2.6) mg/dL Total Bilirubin 1.0 (0.0-1.0) mg/dL Direct Bilirubin (0.0-0.5) mg/dL AST 18 (5-37) U/L ALT 6 (0-40) U/L Alkaline Phosphatase 145 H (39-117) U/L Troponin I High Sens < 2.7 (<3.5-35.0) ng/L B-Natriuretic Peptide 536 H (<100) pg/mL Total Protein 7.0 (6.5-8.0) g/dL Albumin 3.5 (3.5-5.0) g/dL Influenza Type A (PCR) NEGATIVE (Negative) Influenza Type B (PCR) NEGATIVE (Negative) RSV RNA Qual (PCR) NEGATIVE (Negative) SARS-CoV-2 RNA (RT-PCR) NEGATIVE (Negative) 05/17/24 Range/Units 14:54 WBC (4.8-10.8) X10*3/uL RBC (4.60-5.80) X10*6/uL Hgb (14.0-18.0) g/dl Hct (42.0-52.0) % MCV (80.0-98.0) fL MCH (27.0-33.0) pg MCHC (31.0-36.0) g/dl RDW (11.0-16.0) % Plt Count (160-400) X10*3/uL MPV (9.4-12.4) fL Immature Gran % (Auto) (0.0-0.4) % Neut % (Auto) (45-73) % Lymph % (Auto) (20-40) % [place] % (Auto) (2-11) % Eos % (Auto) (0-4) % Baso % (Auto) (0-2) % Lymph # (Auto) (1.2-4.9) X10*3/uL [place] # (Auto) (0.1-1.2) X10*3/uL Eos # (Auto) (0.0-0.4) X10*3/uL Baso # (Auto) (0.0-0.2) X10*3/uL Abs Immat Gran (auto) (0.00-0.03) X10*3/uL Absolute Neuts (auto) (2.0-8.3) x10*3/uL Absolute Nucleated RBC (0.0-0.012) X10*3/uL Nucleated RBC % (auto) (0.0-0.2) /100WBC Smear Tech's Comments PT 29.3 H D (10.9-12.4) SEC INR 2.5 H (0.9-1.1) APTT 36.6 (26.0-36.8) SEC VBG pH VBG pCO2 VBG pO2 VBG HCO3 VBG O2 Saturation VBG Base Excess Sodium 137 (135-145) mmol/L Potassium 5.1 (3.3-5.1) mmol/L Chloride 96 (96-108) mmol/L Carbon Dioxide 33 H (22-29) mmol/L Anion Gap 13 (12-20) BUN 26 H (9-16) mg/dL Creatinine 1.02 (0.5-1.4) mg/dL Estim Creat Clear Calc 57.6 Estimated GFR > 60 Random Glucose 94 (60-115) mg/dL Lactic Acid 2.6 H* (0.5-2.0) mmol/L Calcium 9.3 (8.4-10.2) mg/dL Magnesium (1.6-2.6) mg/dL Total Bilirubin 0.9 (0.0-1.0) mg/dL Direct Bilirubin 0.4 (0.0-0.5) mg/dL AST 13 (5-37) U/L ALT < 6 (0-40) U/L Alkaline Phosphatase (39-117) U/L Troponin I High Sens (<3.5-35.0) ng/L B-Natriuretic Peptide (<100) pg/mL Total Protein 6.5 (6.5-8.0) g/dL Albumin 3.2 L (3.5-5.0) g/dL Influenza Type A (PCR) (Negative) Influenza Type B (PCR) (Negative) RSV RNA Qual (PCR) (Negative) SARS-CoV-2 RNA (RT-PCR) (Negative) Independent Interpretation I performed an independent interpretation of an: EKG and Plain X-Ray Interpretation: Per my interpretation, chest x-ray demonstrates right lower lobe pneumonia. No pneumothorax EKG demonstrates a significant baseline artifact and within limits of the interpretation demonstrates apparent atrial fibrillation at 92 beats per minute, QRS 106, QTC 427, no STEMI Radiology Impression Discussion of test interpretation with radiology: I have reviewed the radiologist's reading. Radiologist Impression: XR/XR chest 2V IMPRESSION: COPD and extensive bilateral lung scarring. Right lower lobe pneumonia. Follow-up is recommended to document resolution. Electronically signed by: Yony Jaimes MD 05/17/2024 02:02 PM EDT RP Dictated By: Yony Jaimes MD Signed By: <Electronically signed by Yony Jaimes MD in OV> 05/17/24 1402 Independent Historian Clinical information obtained from an independent historian. History obtained from or confirmed by: Other states patient has been sick for the last 1 week and initially was not interested in coming to the hospital, but given progression of symptoms presents today for evaluation Discharge Plan Discharge Clinical Impression: Pneumonia, Leukocytosis, Lactic acidosis, Acute hypoxic respiratory failure, Elevated brain natriuretic peptide (BNP) level, Asthma exacerbation in COPD Patient Disposition: Admitted As Inpatient Prescriptions: No Action atorvastatin 20 mg tablet 20 mg PO DAILY Qty: 90 3RF spironolactone 25 mg tablet 12.5 mg PO DAILY 90 Days Qty: 45 2RF metoprolol succinate 100 mg tablet extended release 24 hr 100 mg PO DAILY Qty: 90 3RF Trelegy Ellipta 200-62.5-25 mcg blister with device 1 ea inhalation DAILY apixaban 5 mg tablet 5 mg PO BID albuterol sulfate 2.5 mg /3 mL (0.083 %) solution for nebulization 2.5 mg inhalation Q4H PRN (Reason: Shortness Of Breath) albuterol sulfate 90 mcg/actuation HFA aerosol inhaler 2 puff inhalation Q6H PRN (Reason: Shortness Of Breath Or Wheezing) diltiazem HCl 120 mg capsule,extended release 24 hr 120 mg PO BEDTIME diltiazem HCl 240 mg capsule,extended release 24 hr 240 mg PO DAILY ropinirole 2 mg tablet 2 mg PO DAILY furosemide 20 mg tablet 20 mg PO BID pantoprazole 40 mg tablet,delayed release (DR/EC) 40 mg PO DAILY 30 Days Qty: 30 12RF Print Language: Telugu
--- NOTE | 2024-05-17 13:31 | ECG_ITS ---
Test Reason : SOB Blood Pressure : */* mmHG Vent. Rate : 92 BPM Atrial Rate : * BPM P-R Int : * ms QRS Dur : 106 ms QT Int : 346 ms P-R-T Axes : * -79 66 degrees QTcB Int : 427 ms Atrial fibrillation Left axis deviation Incomplete right bundle branch block Anteroseptal infarct (cited on or before 09-Apr-2013) Abnormal ECG When compared with ECG of 18-Feb-2024 13:50, Serial changes of Anteroseptal infarct Present Referred By: Dannielle Peterson Electronically Signed By: NELL GALVAN MD
[2024-05-17 14:10] LABS: Venous Blood Gas Refer to POC result
[2024-05-17 14:10] LABS: Basophils Percent Auto 0.2 % (0-2); Eosinophils Percent Auto 0.1 % (0-4); Hematocrit 41.9 % (42.0-52.0); Hemoglobin 13.9 g/dl (14.0-18.0); Imm Gran Abs Auto 0.09 X10*3/uL (0.00-0.03); Imm Gran Pct Auto 0.5 % (0.0-0.4); Lymphocytes Percent Auto 6.1 % (20-40); MANUAL DIFF FLAG SCAN; Mean Corpuscular HGB Conc 33.2 g/dl (31.0-36.0); Mean Corpuscular Volume 90.3 fL (80.0-98.0); Monocytes Percent Auto 11.9 % (2-11); Neutrophils Absolute Auto 13.3 x10*3/uL (2.0-8.3); Neutrophils Percent Auto 81.2 % (45-73); Platelet Count 255 X10*3/uL (160-400); Red Blood Count 4.64 X10*6/uL (4.60-5.80); SCAN SMEAR FLAG 1; White Blood Count 16.4 X10*3/uL (4.8-10.8)
--- NOTE | 2024-05-17 14:10 | PC.NURSE ---
Pt reporting he has been compliant with his home inhalers, reporting that pulmonary has been changing his inhalers around and he feels that has what caused his breathing to worsen. Pt noted to be abdominally breathing, labored, pt does not normally wear oxygen at home, reporting he has had terrible breathing for years but reporting that his breathing has been worse for the last 3-4 days. Pt noted to have course crackles/exp rhonci/ wheezing noted, see head to toe assessment. Pt rpeorting he is coughing up oates phlegm. Pt was in the service but denies being exposed to specific chemicals. Pt was 85% RA in main ED, 6L oxy he was 98%, turned down to 4L, he maintained high 90s, decreased to 2 L and has been 95-96%. Pt reports he does have COPD, he is currently having issues with his heart, and has some Bilat LE swelling noted, but pt feels that it is getting better. IV placed at this time.
[2024-05-17 14:13] LABS: VBG Base Excess 11.7 mmol/L; VBG HCO3 41 mmol/L (22-26); VBG pCO2 73 mmHg; VBG pH 7.35 (7.32-7.43); VBG pO2 32 mmHg
[2024-05-17 14:24] LABS: Alanine Aminotransferase 6 U/L (0-40); Albumin Level 3.5 g/dL (3.5-5.0); Alkaline Phosphatase 145 U/L (39-117); Anion Gap 12 (12-20); Aspartate Amino Transferase 18 U/L (5-37); Blood Urea Nitrogen 25 mg/dL (9-16); Calcium 9.2 mg/dL (8.4-10.2); Carbon Dioxide 33 mmol/L (22-29); Chloride 96 mmol/L (96-108); Creatinine Clr Calc Pharmacy 58.2; Estimated Glomerular Filt Rate > 60; Glucose Random 108 mg/dL (60-115); Magnesium 1.8 mg/dL (1.6-2.6); Potassium 4.6 mmol/L (3.3-5.1); Sodium 136 mmol/L (135-145)
[2024-05-17 14:29] LABS: B Type Natriuretic Peptide 536 pg/mL (<100)
[2024-05-17 14:33] LABS: Troponin-I High Sensitivity < 2.7 ng/L (<3.5-35.0)
[2024-05-17] MEDS: Albuterol Sulfate 2.5 MG, Albuterol/Iprat 2.5/0.5MG 3 ML 3 ML INHALE (14:46)
[2024-05-17 14:54] LABS: SLIDE REVIEW VERIFIED
--- NOTE | 2024-05-17 14:58 | ED_ITS ---
HPI - General Adult General Chief complaint: Dyspnea Stated complaint: diff breathing Time Seen by Provider: 05/17/24 14:14 Related Data Home Medications ?Medication ?Instructions ?Recorded ?Confirmed albuterol sulfate 2.5 mg/3 mL 2.5 mg inhalation Q4H PRN 01/28/20 05/17/24 (0.083 %) solution for nebulization Shortness Of Breath albuterol sulfate 90 mcg/actuation 2 puff inhalation Q6H PRN 01/28/20 05/17/24 aerosol inhaler Shortness Of Breath Or Wheezing apixaban 5 mg tablet 5 mg PO BID 01/28/20 05/17/24 diltiazem HCl 240 mg capsule,24 240 mg PO DAILY 08/04/21 05/17/24 hr,extended release ropinirole 2 mg tablet 2 mg PO DAILY 08/04/21 05/17/24 diltiazem HCl 120 mg capsule,24 120 mg PO BEDTIME 02/01/22 05/17/24 hr,extended release furosemide 20 mg tablet 20 mg PO BID 02/01/23 05/17/24 fluticasone fur. 200 mcg-umeclid 1 ea inhalation DAILY 05/17/24 05/17/24 62.5 mcg-vilant 25 mcg inhalat.powder (Trelegy Ellipta) pantoprazole 40 mg tablet,delayed 40 mg PO DAILY@0600 05/17/24 05/17/24 release vitamins A,C,M-ukln-pzinot 2,148 2 tab PO BID 05/17/24 05/17/24 mcg-113 mg-45 mg-17.4 mg tablet (PreserVision AREDS) Previous Rx's ?Medication ?Instructions ?Recorded atorvastatin 20 mg tablet 20 mg PO DAILY #90 tabs 11/23/21 spironolactone 25 mg tablet 12.5 mg (1/2 x 25 mg) PO DAILY 90 01/03/24 days #45 tabs metoprolol succinate 100 mg 100 mg PO DAILY #90 tabs 03/26/24 tablet,extended release 24 hr Allergies Allergy/AdvReac Type Severity Reaction Status Date / Time No Known Allergies Allergy Unknown UNKNOWN Verified 05/17/24 13:34 [NO KNOWN ALLERGIES] PMFSH Past Medical History Medical History COPD (chronic obstructive pulmonary disease) Pneumonia Pneumonia COPD (chronic obstructive pulmonary disease) with emphysema Chronic atrial fibrillation HTN (hypertension) Bilateral carotid artery disease Hyperlipidemia History of cardiomyopathy COPD (chronic obstructive pulmonary disease) History of cardioversion Surgical History History of tonsillectomy and adenoidectomy Hx of colonoscopy Hx of cardiac cath Family History Family History Father Stroke CVD (cardiovascular disease) Mother Colon cancer Diabetes Sister Diabetes COPD (chronic obstructive pulmonary disease) Breast cancer Social History Social History Household Members: Spouse Housing: House Do you presently have visiting nurse or other home services: No Patient Tobacco Use Status: Former Tobacco user Tobacco use type: Cigarette Smoked in Last 30 Days: No Advance Directives: No Advance Directives Information Provided: Yes Advance Directives Date on File: 06/11/21 Do you have a plan to hurt others: No Plan service: No 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al status: retired 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 Physical Exam ED Vital Signs: Vital Signs - 24 hr 05/17/24 13:25 05/17/24 13:54 05/17/24 13:55 Temperature 96.9 F Pulse Rate 91 85 Respiratory Rate 24 H 22 H Blood Pressure 130/76 132/60 Pulse Oximetry 71 L 85 L 91 L Oxygen Delivery Method Room Air Room Air Oxymask Oxygen Flow Rate 6 05/17/24 14:05 05/17/24 14:06 05/17/24 14:50 Temperature Pulse Rate 93 Respiratory Rate 20 24 H Blood Pressure Pulse Oximetry 97 97 Oxygen Delivery Method Oxymask Oxymask Oxygen Flow Rate 4 2 05/17/24 15:43 Temperature 98.9 F Pulse Rate 101 H Respiratory Rate 16 Blood Pressure 133/67 Pulse Oximetry 92 Oxygen Delivery Method Non-Rebreather Mask Oxygen Flow Rate 2 BMI result Body Mass Index 25.1 Medications Administered Discontinued Medications Generic Name Dose Route Start Last Admin Trade Name Freq PRN Reason Stop Dose Admin Ceftriaxone Sodium 1 gm 05/17/24 14:27 05/17/24 15:20 Ceftriaxone Sodium 1 Gm Vial IVPUSH 05/17/24 14:28 1 gm ONCE ONE Administration Albuterol Sulfate 2.5 mg/ 0 mg 05/17/24 14:41 05/17/24 14:46 Albuterol/Ipratropium 3 ml INHALE 05/17/24 14:42 5 dose ONCE ONE Administration Azithromycin 500 mg/ Sodium 250 mls @ 125 mls/hr 05/17/24 14:27 05/17/24 15:20 Chloride IV 05/17/24 16:26 125 mls/hr ONCE ONE Administration Lactated Ringer's 1,000 mls @ 999 mls/hr 05/17/24 14:33 05/17/24 15:27 Lr IV 05/17/24 15:33 Not Given .Q1H1M ONE Methylprednisolone Sodium Succinate 125 mg 05/17/24 14:28 05/17/24 15:20 Methylprednisolone Sod Succ 125 Mg/2 Ml Vial IVPUSH 05/17/24 14:29 125 mg ONCE ONE Administration Medical Decision Making Lab Data 05/17/24 14:03 05/17/24 14:54 Labs: Lab Results 05/17/24 05/17/24 05/17/24 Range/Units 14:03 14:05 14:07 WBC 16.4 H (4.8-10.8) X10*3/uL RBC 4.64 (4.60-5.80) X10*6/uL Hgb 13.9 L (14.0-18.0) g/dl Hct 41.9 L (42.0-52.0) % MCV 90.3 (80.0-98.0) fL MCH 30.0 (27.0-33.0) pg MCHC 33.2 (31.0-36.0) g/dl RDW 14.0 (11.0-16.0) % Plt Count 255 (160-400) X10*3/uL MPV 9.0 L (9.4-12.4) fL Immature Gran % (Auto) 0.5 H (0.0-0.4) % Neut % (Auto) 81.2 H (45-73) % Lymph % (Auto) 6.1 L (20-40) % [place] % (Auto) 11.9 H (2-11) % Eos % (Auto) 0.1 (0-4) % Baso % (Auto) 0.2 (0-2) % Lymph # (Auto) 1.0 L (1.2-4.9) X10*3/uL [place] # (Auto) 2.0 H (0.1-1.2) X10*3/uL Eos # (Auto) 0.0 (0.0-0.4) X10*3/uL Baso # (Auto) 0.0 (0.0-0.2) X10*3/uL Abs Immat Gran (auto) 0.09 H (0.00-0.03) X10*3/uL Absolute Neuts (auto) 13.3 H (2.0-8.3) x10*3/uL Absolute Nucleated RBC 0.000 (0.0-0.012) X10*3/uL Nucleated RBC % (auto) 0.0 (0.0-0.2) /100WBC Smear Tech's Comments VERIFIED PT (10.9-12.4) SEC INR (0.9-1.1) APTT (26.0-36.8) SEC VBG pH Cancelled 7.35 VBG pCO2 Cancelled 73 VBG pO2 Cancelled 32 VBG HCO3 Cancelled 41 H VBG O2 Saturation Cancelled 41.0 VBG Base Excess Cancelled 11.7 Sodium 136 (135-145) mmol/L Potassium 4.6 (3.3-5.1) mmol/L Chloride 96 (96-108) mmol/L Carbon Dioxide 33 H (22-29) mmol/L Anion Gap 12 (12-20) BUN 25 H (9-16) mg/dL Creatinine 1.01 (0.5-1.4) mg/dL Estim Creat Clear Calc 58.2 Estimated GFR > 60 Random Glucose 108 (60-115) mg/dL Lactic Acid (0.5-2.0) mmol/L Calcium 9.2 D (8.4-10.2) mg/dL Magnesium 1.8 (1.6-2.6) mg/dL Total Bilirubin 1.0 (0.0-1.0) mg/dL Direct Bilirubin (0.0-0.5) mg/dL AST 18 (5-37) U/L ALT 6 (0-40) U/L Alkaline Phosphatase 145 H (39-117) U/L Troponin I High Sens < 2.7 (<3.5-35.0) ng/L B-Natriuretic Peptide 536 H (<100) pg/mL Total Protein 7.0 (6.5-8.0) g/dL Albumin 3.5 (3.5-5.0) g/dL Influenza Type A (PCR) NEGATIVE (Negative) Influenza Type B (PCR) NEGATIVE (Negative) RSV RNA Qual (PCR) NEGATIVE (Negative) SARS-CoV-2 RNA (RT-PCR) NEGATIVE (Negative) 05/17/24 Range/Units 14:54 WBC (4.8-10.8) X10*3/uL RBC (4.60-5.80) X10*6/uL Hgb (14.0-18.0) g/dl Hct (42.0-52.0) % MCV (80.0-98.0) fL MCH (27.0-33.0) pg MCHC (31.0-36.0) g/dl RDW (11.0-16.0) % Plt Count (160-400) X10*3/uL MPV (9.4-12.4) fL Immature Gran % (Auto) (0.0-0.4) % Neut % (Auto) (45-73) % Lymph % (Auto) (20-40) % [place] % (Auto) (2-11) % Eos % (Auto) (0-4) % Baso % (Auto) (0-2) % Lymph # (Auto) (1.2-4.9) X10*3/uL [place] # (Auto) (0.1-1.2) X10*3/uL Eos # (Auto) (0.0-0.4) X10*3/uL Baso # (Auto) (0.0-0.2) X10*3/uL Abs Immat Gran (auto) (0.00-0.03) X10*3/uL Absolute Neuts (auto) (2.0-8.3) x10*3/uL Absolute Nucleated RBC (0.0-0.012) X10*3/uL Nucleated RBC % (auto) (0.0-0.2) /100WBC Smear Tech's Comments PT 29.3 H D (10.9-12.4) SEC INR 2.5 H (0.9-1.1) APTT 36.6 (26.0-36.8) SEC VBG pH VBG pCO2 VBG pO2 VBG HCO3 VBG O2 Saturation VBG Base Excess Sodium 137 (135-145) mmol/L Potassium 5.1 (3.3-5.1) mmol/L Chloride 96 (96-108) mmol/L Carbon Dioxide 33 H (22-29) mmol/L Anion Gap 13 (12-20) BUN 26 H (9-16) mg/dL Creatinine 1.02 (0.5-1.4) mg/dL Estim Creat Clear Calc 57.6 Estimated GFR > 60 Random Glucose 94 (60-115) mg/dL Lactic Acid 2.6 H* (0.5-2.0) mmol/L Calcium 9.3 (8.4-10.2) mg/dL Magnesium (1.6-2.6) mg/dL Total Bilirubin 0.9 (0.0-1.0) mg/dL Direct Bilirubin 0.4 (0.0-0.5) mg/dL AST 13 (5-37) U/L ALT < 6 (0-40) U/L Alkaline Phosphatase 119 H (39-117) U/L Troponin I High Sens (<3.5-35.0) ng/L B-Natriuretic Peptide (<100) pg/mL Total Protein 6.5 (6.5-8.0) g/dL Albumin 3.2 L (3.5-5.0) g/dL Influenza Type A (PCR) (Negative) Influenza Type B (PCR) (Negative) RSV RNA Qual (PCR) (Negative) SARS-CoV-2 RNA (RT-PCR) (Negative) Discharge Plan Discharge Clinical Impression: Pneumonia, Leukocytosis, Lactic acidosis, Acute hypoxic respiratory failure, Elevated brain natriuretic peptide (BNP) level, Asthma exacerbation in COPD Patient Disposition: Admitted As Inpatient
[2024-05-17 15:15] LABS: INTERNATIONAL NORM RATIO 2.5 (0.9-1.1); Prothrombin Time 29.3 SEC (10.9-12.4)
[2024-05-17 15:18] LABS: Partial Thromboplastin Time 36.6 SEC (26.0-36.8)
[2024-05-17 15:19] LABS: Influenza A PCR NEGATIVE (Negative); Influenza B PCR NEGATIVE (Negative); Resp Syncy Virus RNA Qual PCR NEGATIVE (Negative); SARS COV2 PCR INHOUSE NEGATIVE (Negative)
[2024-05-17] MEDS: cefTRIAXone sodium 1 GM VIAL IVPUSH (15:20)
[2024-05-17] MEDS: methylPREDNISolone Sod Succ 125 MG/2 ML VIAL IVPUSH (15:20)
[2024-05-17] MEDS: Azithromycin 500 MG in 0.9 % Sodium Chloride 250 ML 125 MG IV (15:20)
[2024-05-17 15:54] LABS: Lactic Acid 2.6 mmol/L (0.5-2.0)
[2024-05-17 15:55] LABS: Alanine Aminotransferase < 6 U/L (0-40); Albumin Level 3.2 g/dL (3.5-5.0); Anion Gap 13 (12-20); Aspartate Amino Transferase 13 U/L (5-37); Bilirubin Direct 0.4 mg/dL (0.0-0.5); Bilirubin Total 0.9 mg/dL (0.0-1.0); Blood Urea Nitrogen 26 mg/dL (9-16); Calcium 9.3 mg/dL (8.4-10.2); Carbon Dioxide 33 mmol/L (22-29); Chloride 96 mmol/L (96-108); Creatinine Clr Calc Pharmacy 57.6; Estimated Glomerular Filt Rate > 60; Glucose Random 94 mg/dL (60-115); Potassium 5.1 mmol/L (3.3-5.1); Sodium 137 mmol/L (135-145); Total Protein 6.5 g/dL (6.5-8.0)
[2024-05-17 16:23] LABS: Alkaline Phosphatase 119 U/L (39-117)
--- NOTE | 2024-05-17 16:31 | PHA.MEDREC ---
Addendum entered by Bernie Xavier RPh 05/17/24 17:14: reviewed by [facility]. Original Note: Pharmacy Consult ? Medication Reconciliation Pharmacy has completed the medication reconciliation. Spoke to patient's Ree to confirm med list. was able to name all of patients medications. states patient takes Diltiazem HCl 240 mg daily and Diltiazem 120 mg at bedtime. was unclear when patients last dose was .
[2024-05-17 17:05] LABS: Reflex Lactate? Lactic Acid Added
[2024-05-17 17:55] LABS: Cancel Lactic Acid Canceled
--- NOTE | 2024-05-17 18:00 | PC.NURSE ---
Lab called in regards to Lactic acid, as order was DC'd but system reordered. This RN reached out to provider who continues to not want IVF and would not like to repeat the Lactic, no repeat needed.
--- NOTE | 2024-05-17 18:50 | P.HPHOSP_ITS ---
History of Present Illness Date of Service: 05/17/24 Attending physician on admission: Luis Holloway Chief Complaint: SOB Pt is an 84-year-old male with a PMH significant for?COPD not on home O2, HTN, HLD, HFpEF, chronic AFib on Eliquis, and GERD who presents to the ED with?SOB and difficulty breathing for the past 1-2 weeks, worse the past 3 days. Pt is accompanied by his who notes pt has been experiencing symptoms for awhile, though refused to come to the ED until this morning when he felt like he could not breathe. In triage was satting at 71% on RA. Not on home O2. Cough has been productive of whitish sputum. Reports feeling cold, but no measured fever. No nausea, vomiting, abdominal pain. Denies chest pain/pressure, palpitations. In the ED pt was tachycardic up to 101, tachypneic up to 24, and desatting as low as 71% on RA. Labs were significant for leukocytosis 16.4, lactic acid 2.6, and BNP 536. Stable H&H. No significant electrolyte abnormalities. Renal function WNL. Hepatic function WNL. Troponin negative. Tested negative for flu, COVID, RSV. CXR showed new right lower lobe pneumonia. EKG demonstrated atrial fibrillation with HR of 92. Pt was treated with DuoNebs, Solu-Medrol, ceftriaxone, and azithromycin. Pt will be admitted to the hospital for treatment and further evaluation of acute hypoxic respiratory failure in the setting of acute COPD exacerbation with underlying pneumonia with sepsis. Review of Systems 2 Review of Systems: Negative except for that which is stated in the HPI. [facility] Medical History COPD (chronic obstructive pulmonary disease) Pneumonia Pneumonia COPD (chronic obstructive pulmonary disease) with emphysema Chronic atrial fibrillation HTN (hypertension) Bilateral carotid artery disease Hyperlipidemia History of cardiomyopathy COPD (chronic obstructive pulmonary disease) History of cardioversion Family History Father Stroke CVD (cardiovascular disease) Mother Colon cancer Diabetes Sister Diabetes COPD (chronic obstructive pulmonary disease) Breast cancer Surgical History History of tonsillectomy and adenoidectomy Hx of colonoscopy Hx of cardiac cath Social History Household Members: Spouse Housing: House Do you presently have visiting nurse or other home services: No Patient Tobacco Use Status: Former Tobacco user Tobacco use type: Cigarette Smoked in Last 30 Days: No Patient Interested in Nicotine Replacement: No Patient Given Instructions on How to Stop Smoking: No Second Hand Smoke Exposure: No Use of substances other than those prescribed or required for medical reasons: No Currently Displaying Signs/Symptoms of Drug Intoxication Withdrawal: No Any prior treatment program specific to substance use: No Have you been hit, kicked, punched, or otherwise hurt by someone within the past year? 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 Meds Allergies Allergy/AdvReac Type Severity Reaction Status Date / Time No Known Allergies Allergy Unknown UNKNOWN Verified 05/17/24 13:34 [NO KNOWN ALLERGIES] Active Medications: Current Medications Acetaminophen (Acetaminophen 325 Mg Tablet) 650 mg PO Q6H PRN PRN Reason: Pain, Mild 1-3,fever,headache Albuterol/Ipratropium (Albuterol/Iprat 2.5/0.5mg 3 Ml Ampul.Neb) 3 ml INHALE RQ4H WHILE AWAKE [facility] Albuterol/Ipratropium (Albuterol/Iprat 2.5/0.5mg 3 Ml Ampul.Neb) 3 ml INHALE RQ4H WHILE AWAKE PRN PRN Reason: Shortness of Breath/Wheezing Calcium Carbonate (Calcium Carbonate 750 Mg Tab.Chew) 750 mg PO Q4H PRN PRN Reason: Heartburn Ceftriaxone Sodium (Ceftriaxone Sodium 1 Gm Vial) 1 gm IVPUSH Q24H [facility] Azithromycin 500 mg/ Sodium (Chloride) 250 mls @ 125 mls/hr IV Q24H [facility] Magnesium Hydroxide (Milk Of Magnesia 30 Ml Oral.Susp) 30 ml PO DAILY PRN PRN Reason: Constipation Melatonin (Melatonin 3 Mg Tablet) 6 mg PO BEDTIME PRN PRN Reason: Insomnia Methylprednisolone Sodium Succinate (Methylprednisolone Sod Succ 40 Mg/Ml Vial) 40 mg IVPUSH Q12H [facility] Sodium Chloride (0.9 % Sodium Chloride Flush 3 Ml Syringe) 3 ml IVFLUSH QSHIFT CARLOS Home Medications ?Medication ?Instructions ?Recorded ?Confirmed ?Last Taken ?Type albuterol sulfate 2.5 mg/3 mL 2.5 mg inhalation Q4H PRN 01/28/20 05/17/24 10/14/22 History (0.083 %) solution for nebulization Shortness Of Breath albuterol sulfate 90 mcg/actuation 2 puff inhalation Q6H PRN 01/28/20 05/17/24 10/14/22 History aerosol inhaler Shortness Of Breath Or Wheezing apixaban 5 mg tablet 5 mg PO BID 01/28/20 05/17/24 10/14/22 History diltiazem HCl 240 mg capsule,24 240 mg PO DAILY 08/04/21 05/17/24 10/14/22 History hr,extended release ropinirole 2 mg tablet 2 mg PO BID 08/04/21 05/17/24 Unknown History diltiazem HCl 120 mg capsule,24 120 mg PO BEDTIME 02/01/22 05/17/24 10/13/22 History hr,extended release furosemide 20 mg tablet 20 mg PO BID 02/01/23 05/17/24 Unknown History fluticasone fur. 200 mcg-umeclid 1 ea inhalation DAILY 05/17/24 05/17/24 Unknown History 62.5 mcg-vilant 25 mcg inhalat.powder (Trelegy Ellipta) pantoprazole 40 mg tablet,delayed 40 mg PO DAILY@0630 05/17/24 05/17/24 Unknown History release vitamins A,C,F-nuyn-dlrbyo 2,148 2 tab PO BID 05/17/24 05/17/24 Unknown History mcg-113 mg-45 mg-17.4 mg tablet (PreserVision AREDS) Physical Exam 2 Vital Signs and Narrative: Vital Signs: Last Vital Signs Temp 98.9 F 05/17/24 15:43 Pulse 101 H 05/17/24 15:43 Resp 16 05/17/24 15:43 BP 133/67 05/17/24 15:43 Pulse Ox 92 05/17/24 15:43 O2 Del Method Non-Rebreather Ma sk 05/17/24 15:43 O2 Flow Rate 2 05/17/24 15:43 BMI result Body Mass Index 25.1 General: AOx3, no acute distress Resp: Extensive bilateral wheezing, capable speaking in complete sentences. CVS: Irregularly irregular rhythm GI: +BS, NT, no distention Skin: Warm, dry Neuro: Cranial nerves II-XII grossly intact bilaterally. Motor grossly intact bilaterally Extremities: Trace bilateral edema Psych: Appropriate affect, slightly anxious Results Labs 05/18/24 06:45 05/18/24 06:45 Labs: Laboratory Results - last 24 hr 05/17/24 05/17/24 05/17/24 14:03 14:05 14:07 MCV 90.3 MCH 30.0 MCHC 33.2 RDW 14.0 Plt Count 255 MPV 9.0 L Immature Gran % (Auto) 0.5 H Neut % (Auto) 81.2 H Lymph % (Auto) 6.1 L [place] % (Auto) 11.9 H Eos % (Auto) 0.1 Baso % (Auto) 0.2 Lymph # (Auto) 1.0 L [place] # (Auto) 2.0 H Eos # (Auto) 0.0 Baso # (Auto) 0.0 Abs Immat Gran (auto) 0.09 H Absolute Neuts (auto) 13.3 H Absolute Nucleated RBC 0.000 Nucleated RBC % (auto) 0.0 Smear Tech's Comments VERIFIED PT INR APTT VBG pH Cancelled 7.35 VBG pCO2 Cancelled 73 VBG pO2 Cancelled 32 VBG HCO3 Cancelled 41 H VBG O2 Saturation Cancelled 41.0 VBG Base Excess Cancelled 11.7 Anion Gap 12 Estim Creat Clear Calc 58.2 Estimated GFR > 60 Random Glucose 108 Lactic Acid Calcium 9.2 D Magnesium 1.8 Total Bilirubin 1.0 Direct Bilirubin AST 18 ALT 6 Alkaline Phosphatase 145 H B-Natriuretic Peptide 536 H Total Protein 7.0 Albumin 3.5 Influenza Type A (PCR) NEGATIVE Influenza Type B (PCR) NEGATIVE RSV RNA Qual (PCR) NEGATIVE SARS-CoV-2 RNA (RT-PCR) NEGATIVE 05/17/24 14:54 MCV MCH MCHC RDW Plt Count MPV Immature Gran % (Auto) Neut % (Auto) Lymph % (Auto) [place] % (Auto) Eos % (Auto) Baso % (Auto) Lymph # (Auto) [place] # (Auto) Eos # (Auto) Baso # (Auto) Abs Immat Gran (auto) Absolute Neuts (auto) Absolute Nucleated RBC Nucleated RBC % (auto) Smear Tech's Comments PT 29.3 H D INR 2.5 H APTT 36.6 VBG pH VBG pCO2 VBG pO2 VBG HCO3 VBG O2 Saturation VBG Base Excess Anion Gap 13 Estim Creat Clear Calc 57.6 Estimated GFR > 60 Random Glucose 94 Lactic Acid 2.6 H* Calcium 9.3 Magnesium Total Bilirubin 0.9 Direct Bilirubin 0.4 AST 13 ALT < 6 Alkaline Phosphatase 119 H B-Natriuretic Peptide Total Protein 6.5 Albumin 3.2 L Influenza Type A (PCR) Influenza Type B (PCR) RSV RNA Qual (PCR) SARS-CoV-2 RNA (RT-PCR) Imaging Radiologist's Impressions: Impressions Chest X-Ray 05/17/24 13:31 IMPRESSION: COPD and extensive bilateral lung scarring. Right lower lobe pneumonia. Follow-up is recommended to document resolution. Electronically signed by: Yony Jaimes MD 05/17/2024 02:02 PM EDT RP Assessment and Plan (1) Acute hypoxic respiratory failure: Status: Acute (2) COPD exacerbation: Status: Inactive (3) Community acquired pneumonia: Qualifiers: Laterality: right Lung location: lower lobe of lung Qualified Code(s): J18.9 - Pneumonia, unspecified organism Status: Acute Plan Pt is an 84-year-old male with a PMH significant for?COPD not on home O2, HTN, HLD, HFpEF, chronic AFib on Eliquis, and GERD who presents to the ED with?SOB and difficulty breathing for the past 1-2 weeks, worse the past 3 days. Pt will be admitted to the hospital for treatment and further evaluation of acute hypoxic respiratory failure in the setting of acute COPD exacerbation with superimposed pneumonia with sepsis. Acute hypoxic respiratory failure in the setting of acute COPD exacerbation with superimposed pneumonia with sepsis Pt with SOB, AMADOR, cough, significantly worsened x3 days; CXR with RLL pneumonia, initially satting at 71% on RA Meets sepsis criteria with tachycardia, tachypnea, leukocytosis Pt started on broad-spectrum antibiotics in the ED Will treat with ceftriaxone and azithromycin, started 05/17/2024 DuoNebs, Solu-Medrol, guaifenesin CO2 retainer oxygen protocol, wean as tolerated Monitor respiratory status Acute lactic acidosis Lactic acid 2.6 at time of presentation Secondary to albuterol use, not sepsis Treat as above HFpEF Not in acute exacerbation BNP elevated, but pt appears euvolemic; no pulmonary edema or effusions on CXR Continue home Lasix and spironolactone Persistent AFib Continue diltiazem, metoprolol, and Eliquis HLD Continue statin GERD Continue PPI Full Code Attending:?Dr. Holloway DVT Prophylaxis: On Eliquis Pt will require a hospitalization of at least two nights for treatment of acute hypoxic respiratory failure in the setting of acute COPD exacerbation with superimposed pneumonia with sepsis. Pt will require hospital level care for administration of IV antibiotics, IV steroids, bronchodilators, and supplemental oxygen. Quality Stroke Does the patient have a stroke diagnosis?: No VTE Prior VTE?: No VTE Risk Level:: Medical - moderate - high VTE Device Contraindication: Treatment Not Indicated VTE Drug Contraindication: N/A - Med Ordered
[2024-05-17] MEDS: Albuterol/Iprat 2.5/0.5MG 3 ML AMPUL.NEB INHALE (19:20)
[2024-05-17] MEDS: Furosemide 20 MG TABLET PO (20:51)
[2024-05-17] MEDS: Apixaban 5 MG TABLET PO (20:51)
[2024-05-17] MEDS: rOPINIRole HCL 2 MG TABLET PO (21:37)
[2024-05-17] MEDS: dilTIAZem HCL CD 120 MG CAP.ER.DEG PO (21:37)
[2024-05-18] VITALS (9 sets, daily range): BP systolic 115–142; BP diastolic 58–76; PULSE 73–119; RESP 16–18; TEMP 36.4–36.7; O2SAT 90–95; BMI 25.1
[2024-05-18] MEDS: 0.9 % Sodium Chloride Flush 3 ML SYRINGE IVFLUSH ×4 (00:11→20:31)
--- NOTE | 2024-05-18 04:35 | MHC.EVENTN ---
Assumed care of patient. Patient resting in chair overnight. Vitals stable, Will continue to monitor.
[2024-05-18] MEDS: Omeprazole 20 MG CAPSULE.DR PO (05:41)
[2024-05-18 07:36] LABS: Hematocrit 39.9 % (42.0-52.0); Hemoglobin 13.2 g/dl (14.0-18.0); Mean Corpuscular HGB Conc 33.1 g/dl (31.0-36.0); Mean Corpuscular Hemoglobin 29.9 pg (27.0-33.0); Mean Corpuscular Volume 90.5 fL (80.0-98.0); Mean Platelet Volume 9.7 fL (9.4-12.4); Platelet Count 238 X10*3/uL (160-400); Red Blood Count 4.41 X10*6/uL (4.60-5.80); Red Cell Distribution Width 13.6 % (11.0-16.0); White Blood Count 12.3 X10*3/uL (4.8-10.8)
[2024-05-18] MEDS: Albuterol/Iprat 2.5/0.5MG 3 ML AMPUL.NEB INHALE ×4 (07:46→18:54)
[2024-05-18 07:53] LABS: Anion Gap 14 (12-20); Blood Urea Nitrogen 29 mg/dL (9-16); Calcium 9.9 mg/dL (8.4-10.2); Carbon Dioxide 31 mmol/L (22-29); Chloride 95 mmol/L (96-108); Creatinine Clr Calc Pharmacy 63.2; Estimated Glomerular Filt Rate > 60; Glucose Random 140 mg/dL (60-115); Potassium 4.5 mmol/L (3.3-5.1); Sodium 135 mmol/L (135-145)
[2024-05-18 08:10] LABS: Procalcitonin 1.02 ng/mL
[2024-05-18] MEDS: methylPREDNISolone Sod Succ 40 MG/ML VIAL IVPUSH ×2 (09:26→20:31)
[2024-05-18] MEDS: Furosemide 20 MG TABLET PO ×2 (09:27→20:31)
[2024-05-18] MEDS: Atorvastatin Calcium 20 MG TABLET PO (09:27)
[2024-05-18] MEDS: Metoprolol Succinate ER 100 MG TAB.ER.24H PO (09:27)
[2024-05-18] MEDS: rOPINIRole HCL 2 MG TABLET PO ×2 (09:27→20:31)
[2024-05-18] MEDS: Apixaban 5 MG TABLET PO ×2 (09:27→20:31)
[2024-05-18] MEDS: Multivitamin TABLET 1 TAB PO (09:27)
[2024-05-18] MEDS: dilTIAZem HCL CD 240 MG CAP.ER.DEG PO (09:27)
[2024-05-18] MEDS: Spironolactone 25 MG TABLET 12.5 MG PO (09:28)
--- NOTE | 2024-05-18 10:57 | HO.PM.IMPN ---
Subjective Subjective Date of Service: 05/18/24 Interval History: breathing improved scant white sputum Review of Systems Review of Systems: Yes all other systems are reviewed and are negative Physical Exam Vital Signs: Vital Signs: Last Vital Signs Temp 97.9 F 05/18/24 08:53 Pulse 119 H 05/18/24 08:53 Resp 18 05/18/24 08:53 BP 142/76 H 05/18/24 08:53 Pulse Ox 95 05/18/24 08:53 O2 Del Method Nasal Cannula 05/18/24 08:53 O2 Flow Rate 2 05/18/24 08:53 BMI result Body Mass Index 25.1 Gen: in no acute distress HEENT: sclera anicteric, moist mucus membranes Neck: supple Lungs: diminished, R basilar inspiratory crackles Heart: irregular, no murmurs Abd: soft, non-tender, non-distended Ext: no edema Skin: warm/well-perfused Neuro: alert and oriented x3, no focal findings Psych: appropriate affect Objective Data Active Medications Acetaminophen (Acetaminophen 325 Mg Tablet) 650 mg PO Q6H PRN PRN Reason: Pain, Mild 1-3,fever,headache Albuterol/Ipratropium (Albuterol/Iprat 2.5/0.5mg 3 Ml Ampul.Neb) 3 ml INHALE RQ4H WHILE AWAKE [facility] Last Admin: 05/18/24 07:46 Dose: 3 ml Documented By: ELOISE Albuterol/Ipratropium (Albuterol/Iprat 2.5/0.5mg 3 Ml Ampul.Neb) 3 ml INHALE RQ4H WHILE AWAKE PRN PRN Reason: Shortness of Breath/Wheezing Apixaban (Apixaban 5 Mg Tablet) 5 mg PO BID [facility] Last Admin: 05/18/24 09:27 Dose: 5 mg Documented By: MICHAEL Atorvastatin Calcium (Atorvastatin Calcium 20 Mg Tablet) 20 mg PO DAILY [facility] Last Admin: 05/18/24 09:27 Dose: 20 mg Documented By: MICHAEL Calcium Carbonate (Calcium Carbonate 750 Mg Tab.Chew) 750 mg PO Q4H PRN PRN Reason: Heartburn Ceftriaxone Sodium (Ceftriaxone Sodium 1 Gm Vial) 1 gm IVPUSH Q24H [facility] Diltiazem HCl (Diltiazem Hcl Cd 120 Mg Cap.Er.Deg) 120 mg PO BEDTIME [facility]; Protocol Last Admin: 05/17/24 21:37 Dose: 120 mg Documented By: BECKY Diltiazem HCl (Diltiazem Hcl Cd 240 Mg Cap.Er.Deg) 240 mg PO DAILY [facility]; Protocol Last Admin: 05/18/24 09:27 Dose: 240 mg Documented By: MICHAEL Fluticasone/Umeclidinium/Vilanterol (Fluticasone/Umeclidinium/Vilanterol 200/62.5/25 Blst.W.Dev) 1 puff INHALE RDAILY [facility] Last Admin: 05/18/24 08:42 Dose: 1 puff Documented By: ARNOLD Furosemide (Furosemide 20 Mg Tablet) 20 mg PO BID [facility]; Protocol Last Admin: 05/18/24 09:27 Dose: 20 mg Documented By: MICHAEL Guaifenesin/Dextromethorphan (Guaifenesin Dm 200/20/10 Ml 10 Ml Syrup) 10 ml PO Q4H PRN PRN Reason: Cough Azithromycin 500 mg/ Sodium (Chloride) 250 mls @ 125 mls/hr IV Q24H [facility] Magnesium Hydroxide (Milk Of Magnesia 30 Ml Oral.Susp) 30 ml PO DAILY PRN PRN Reason: Constipation Melatonin (Melatonin 3 Mg Tablet) 6 mg PO BEDTIME PRN PRN Reason: Insomnia Methylprednisolone Sodium Succinate (Methylprednisolone Sod Succ 40 Mg/Ml Vial) 40 mg IVPUSH Q12H [facility] Last Admin: 05/18/24 09:26 Dose: 40 mg Documented By: MICHAEL Metoprolol Succinate (Metoprolol Succinate Er 100 Mg Tab.Er.24h) 100 mg PO DAILY [facility]; Protocol Last Admin: 05/18/24 09:27 Dose: 100 mg Documented By: MICHAEL Multivitamins/Vitamin C (Multivitamin Tablet) 1 tab PO DAILY [facility] Last Admin: 05/18/24 09:27 Dose: 1 tab Documented By: MICHAEL Omeprazole (Omeprazole 20 Mg Capsule.Dr) 20 mg PO DAILY@0630 [facility] Last Admin: 05/18/24 05:41 Dose: 20 mg Documented By: EBCKY Ropinirole HCl (Ropinirole Hcl 2 Mg Tablet) 2 mg PO BID [facility] Last Admin: 05/18/24 09:27 Dose: 2 mg Documented By: MICHAEL Sodium Chloride (0.9 % Sodium Chloride Flush 3 Ml Syringe) 3 ml IVFLUSH QSHIFT [facility] Last Admin: 05/18/24 09:26 Dose: 3 ml Documented By: MICHAEL Spironolactone (Spironolactone 25 Mg Tablet) 12.5 mg PO DAILY [facility]; Protocol Last Admin: 05/18/24 09:28 Dose: 12.5 mg Documented By: MICHAEL Labs 05/18/24 06:45 05/18/24 06:45 Labs: Laboratory Results - last 24 hr 05/17/24 05/17/24 05/17/24 14:03 14:05 14:07 MCV 90.3 MCH 30.0 MCHC 33.2 RDW 14.0 Plt Count 255 MPV 9.0 L Immature Gran % (Auto) 0.5 H Neut % (Auto) 81.2 H Lymph % (Auto) 6.1 L [place] % (Auto) 11.9 H Eos % (Auto) 0.1 Baso % (Auto) 0.2 Lymph # (Auto) 1.0 L [place] # (Auto) 2.0 H Eos # (Auto) 0.0 Baso # (Auto) 0.0 Abs Immat Gran (auto) 0.09 H Absolute Neuts (auto) 13.3 H Absolute Nucleated RBC 0.000 Nucleated RBC % (auto) 0.0 Smear Tech's Comments VERIFIED PT INR APTT VBG pH Cancelled 7.35 VBG pCO2 Cancelled 73 VBG pO2 Cancelled 32 VBG HCO3 Cancelled 41 H VBG O2 Saturation Cancelled 41.0 VBG Base Excess Cancelled 11.7 Anion Gap 12 Estim Creat Clear Calc 58.2 Estimated GFR > 60 Random Glucose 108 Lactic Acid Calcium 9.2 D Magnesium 1.8 Total Bilirubin 1.0 Direct Bilirubin AST 18 ALT 6 Alkaline Phosphatase 145 H B-Natriuretic Peptide 536 H Total Protein 7.0 Albumin 3.5 Procalcitonin Influenza Type A (PCR) NEGATIVE Influenza Type B (PCR) NEGATIVE RSV RNA Qual (PCR) NEGATIVE SARS-CoV-2 RNA (RT-PCR) NEGATIVE 05/17/24 05/18/24 14:54 06:45 MCV 90.5 MCH 29.9 MCHC 33.1 RDW 13.6 Plt Count 238 MPV 9.7 Immature Gran % (Auto) Neut % (Auto) Lymph % (Auto) [place] % (Auto) Eos % (Auto) Baso % (Auto) Lymph # (Auto) [place] # (Auto) Eos # (Auto) Baso # (Auto) Abs Immat Gran (auto) Absolute Neuts (auto) Absolute Nucleated RBC 0.000 Nucleated RBC % (auto) 0.0 Smear Tech's Comments PT 29.3 H D INR 2.5 H APTT 36.6 VBG pH VBG pCO2 VBG pO2 VBG HCO3 VBG O2 Saturation VBG Base Excess Anion Gap 13 14 Estim Creat Clear Calc 57.6 63.2 Estimated GFR > 60 > 60 Random Glucose 94 140 H Lactic Acid 2.6 H* Calcium 9.3 9.9 D Magnesium Total Bilirubin 0.9 Direct Bilirubin 0.4 AST 13 ALT < 6 Alkaline Phosphatase 119 H B-Natriuretic Peptide Total Protein 6.5 Albumin 3.2 L Procalcitonin 1.02 Influenza Type A (PCR) Influenza Type B (PCR) RSV RNA Qual (PCR) SARS-CoV-2 RNA (RT-PCR) Assessment and Plan (1) COPD (chronic obstructive pulmonary disease): Status: Acute Plan d2 for 84yo M with COPD not on home O2, HTN, HLD, HFpEF, chronic AF on apixaban, and GERD presenting with dyspnea x 1-2 wk, found to be hypoxic with pneumonia + COPD exacerbation sepsis and acute hypoxic respiratory failure due to PNA with COPD exacerbation - 05/17- ceftriaxone + azithromycin, follow BCx, trend PCT, send urinary antigens for Legionella and pneumococcus + MRSA swab - 05/17- methylprednisolone, standing/prn nebs, Trelegy - supplemental O2, wean as tolerated; goal SaO2 no greater than 92% given CO2 retention acute lactic acidosis - due to albuterol, not severe sepsis chronic HFpEF - continue furosemide + spironolactone chronic AF - continue metoprolol succinate + diltiazem - continue apixaban HLD - continue statin GERD - PPI VTE ppx - apixaban dispo - TBD In my clinical judgment, the patient requires continued inpatient hospitalization for the following reasons: hypoxia, IV ABX Total time managing care of this patient today: 45 minutes. Quality Stroke Does the patient have a stroke diagnosis?: No VTE Prior VTE?: No VTE Risk Level:: Medical - moderate - high VTE Device Contraindication: Treatment Not Indicated VTE Drug Contraindication: N/A - Med Ordered
[2024-05-18] MEDS: Fluticasone/Umeclidinium/Vilanterol 200/62.5/25 BLST.W.DEV 1 PUFF INHALE (11:29)
--- NOTE | 2024-05-18 12:33 | MHC.CM.PN ---
PT LIVES WITH IS [facility] HAS OWN RIDE HOME DC PLAN HOME NO SERVICES
[2024-05-18] MEDS: Azithromycin 500 MG in 0.9 % Sodium Chloride 250 ML 125 MG IV (16:28)
[2024-05-18] MEDS: cefTRIAXone sodium 1 GM VIAL IVPUSH (16:28)
[2024-05-18] MEDS: dilTIAZem HCL CD 120 MG CAP.ER.DEG PO (20:48)
--- NOTE | 2024-05-18 23:18 | PC.NURSE ---
2100 pt refused chair alarm.pt states he has restless leg syndrome and needs to stand frequently and move his legs.pt is steady on his feet.
[2024-05-19] VITALS (9 sets, daily range): BP systolic 105–131; BP diastolic 58–65; PULSE 69–100; RESP 16–18; TEMP 36.4–36.6; O2SAT 89–98
[2024-05-19] MEDS: Omeprazole 20 MG CAPSULE.DR PO (05:36)
[2024-05-19 06:06] LABS: Hematocrit 40.6 % (42.0-52.0); Hemoglobin 13.8 g/dl (14.0-18.0); Mean Corpuscular Hemoglobin 30.5 pg (27.0-33.0); Mean Corpuscular Volume 89.6 fL (80.0-98.0); Mean Platelet Volume 9.4 fL (9.4-12.4); Platelet Count 301 X10*3/uL (160-400); Red Blood Count 4.53 X10*6/uL (4.60-5.80); Red Cell Distribution Width 13.4 % (11.0-16.0); White Blood Count 14.3 X10*3/uL (4.8-10.8)
[2024-05-19 06:06] LABS: Venous Blood Gas Refer to POC result
[2024-05-19 06:10] LABS: VBG Base Excess 8.6 mmol/L; VBG HCO3 36 mmol/L (22-26); VBG pCO2 62 mmHg; VBG pH 7.37 (7.32-7.43); VBG pO2 35 mmHg
[2024-05-19 06:18] LABS: Anion Gap 13 (12-20); Blood Urea Nitrogen 44 mg/dL (9-16); Calcium 9.6 mg/dL (8.4-10.2); Carbon Dioxide 31 mmol/L (22-29); Chloride 95 mmol/L (96-108); Creatinine Clr Calc Pharmacy 57.6; Estimated Glomerular Filt Rate > 60; Glucose Random 140 mg/dL (60-115); Potassium 5.2 mmol/L (3.3-5.1); Sodium 134 mmol/L (135-145)
[2024-05-19] MEDS: Fluticasone/Umeclidinium/Vilanterol 200/62.5/25 BLST.W.DEV 1 PUFF INHALE (07:47)
[2024-05-19] MEDS: Albuterol/Iprat 2.5/0.5MG 3 ML AMPUL.NEB INHALE ×4 (07:47→19:20)
[2024-05-19] MEDS: Atorvastatin Calcium 20 MG TABLET PO (08:18)
[2024-05-19] MEDS: dilTIAZem HCL CD 240 MG CAP.ER.DEG PO (08:18)
[2024-05-19] MEDS: Furosemide 20 MG TABLET PO ×2 (08:19→21:08)
[2024-05-19] MEDS: Metoprolol Succinate ER 100 MG TAB.ER.24H PO (08:19)
[2024-05-19] MEDS: Multivitamin TABLET 1 TAB PO (08:19)
[2024-05-19] MEDS: predniSONE 20 MG TABLET 40 MG PO (08:19)
[2024-05-19] MEDS: Spironolactone 25 MG TABLET 12.5 MG PO (08:20)
[2024-05-19] MEDS: rOPINIRole HCL 2 MG TABLET PO ×2 (08:20→21:08)
[2024-05-19] MEDS: Apixaban 5 MG TABLET PO ×2 (08:20→21:08)
[2024-05-19] MEDS: Sodium Zirconium Cyclosilicate 10 GM POWD.PACK PO (08:22)
[2024-05-19] MEDS: 0.9 % Sodium Chloride Flush 3 ML SYRINGE IVFLUSH ×3 (08:26→21:11)
[2024-05-19 10:23] LABS: MRSA Nasal PCR NEGATIVE (Negative); SA Nasal PCR NEGATIVE (Negative)
--- NOTE | 2024-05-19 11:41 | HO.PM.IMPN ---
Subjective Subjective Date of Service: 05/19/24 Interval History: cough improved, no sputum production dyspnea improving Review of Systems Review of Systems: Yes all other systems are reviewed and are negative Physical Exam Vital Signs: Vital Signs: Last Vital Signs Temp 98 F 05/19/24 07:00 Pulse 91 05/19/24 11:12 Resp 16 05/19/24 11:12 BP 105/59 L 05/19/24 07:00 Pulse Ox 93 05/19/24 07:00 O2 Del Method Nasal Cannula 05/19/24 07:00 O2 Flow Rate 2 05/19/24 07:00 BMI result Body Mass Index 25.1 Gen: in no acute distress HEENT: sclera anicteric, moist mucus membranes Neck: supple Lungs: diminished R base Heart: irregular, no murmurs Abd: soft, non-tender, non-distended Ext: no edema Skin: warm/well-perfused Neuro: alert and oriented x3, no focal findings Psych: appropriate affect Objective Data Active Medications Acetaminophen (Acetaminophen 325 Mg Tablet) 650 mg PO Q6H PRN PRN Reason: Pain, Mild 1-3,fever,headache Albuterol/Ipratropium (Albuterol/Iprat 2.5/0.5mg 3 Ml Ampul.Neb) 3 ml INHALE RQ4H WHILE AWAKE [facility] Last Admin: 05/19/24 11:11 Dose: 3 ml Documented By: VIOLETTE Albuterol/Ipratropium (Albuterol/Iprat 2.5/0.5mg 3 Ml Ampul.Neb) 3 ml INHALE RQ4H WHILE AWAKE PRN PRN Reason: Shortness of Breath/Wheezing Apixaban (Apixaban 5 Mg Tablet) 5 mg PO BID [facility] Last Admin: 05/19/24 08:20 Dose: 5 mg Documented By: MICHAELA Atorvastatin Calcium (Atorvastatin Calcium 20 Mg Tablet) 20 mg PO DAILY [facility] Last Admin: 05/19/24 08:18 Dose: 20 mg Documented By: MICHAELA Calcium Carbonate (Calcium Carbonate 750 Mg Tab.Chew) 750 mg PO Q4H PRN PRN Reason: Heartburn Ceftriaxone Sodium (Ceftriaxone Sodium 1 Gm Vial) 1 gm IVPUSH Q24H [facility] Last Admin: 05/18/24 16:28 Dose: 1 gm Documented By: CINTIA Diltiazem HCl (Diltiazem Hcl Cd 120 Mg Cap.Er.Deg) 120 mg PO BEDTIME [facility]; Protocol Last Admin: 05/18/24 20:48 Dose: 120 mg Documented By: CAMILLE Diltiazem HCl (Diltiazem Hcl Cd 240 Mg Cap.Er.Deg) 240 mg PO DAILY [facility]; Protocol Last Admin: 05/19/24 08:18 Dose: 240 mg Documented By: MICHAELA Fluticasone/Umeclidinium/Vilanterol (Fluticasone/Umeclidinium/Vilanterol 200/62.5/25 Blst.W.Dev) 1 puff INHALE RDAILY [facility] Last Admin: 05/19/24 07:47 Dose: 1 puff Documented By: VIOLETTE Furosemide (Furosemide 20 Mg Tablet) 20 mg PO BID [facility]; Protocol Last Admin: 05/19/24 08:19 Dose: 20 mg Documented By: MICHAELA Guaifenesin/Dextromethorphan (Guaifenesin Dm 200/20/10 Ml 10 Ml Syrup) 10 ml PO Q4H PRN PRN Reason: Cough Azithromycin 500 mg/ Sodium (Chloride) 250 mls @ 125 mls/hr IV Q24H [facility] Last Infusion: 05/18/24 20:24 Dose: Infused Documented By: CAMILLE Magnesium Hydroxide (Milk Of Magnesia 30 Ml Oral.Susp) 30 ml PO DAILY PRN PRN Reason: Constipation Melatonin (Melatonin 3 Mg Tablet) 6 mg PO BEDTIME PRN PRN Reason: Insomnia Metoprolol Succinate (Metoprolol Succinate Er 100 Mg Tab.Er.24h) 100 mg PO DAILY [facility]; Protocol Last Admin: 05/19/24 08:19 Dose: 100 mg Documented By: MICHAELA Multivitamins/Vitamin C (Multivitamin Tablet) 1 tab PO DAILY [facility] Last Admin: 05/19/24 08:19 Dose: 1 tab Documented By: MICHAELA Omeprazole (Omeprazole 20 Mg Capsule.Dr) 20 mg PO DAILY@0630 [facility] Last Admin: 05/19/24 05:36 Dose: 20 mg Documented By: CAMILLE Prednisone (Prednisone 20 Mg Tablet) 40 mg PO DAILY [facility] Last Admin: 05/19/24 08:19 Dose: 40 mg Documented By: MICHAELA Ropinirole HCl (Ropinirole Hcl 2 Mg Tablet) 2 mg PO BID [facility] Last Admin: 05/19/24 08:20 Dose: 2 mg Documented By: MICHAELA Sodium Chloride (0.9 % Sodium Chloride Flush 3 Ml Syringe) 3 ml IVFLUSH QSHIFT [facility] Last Admin: 05/19/24 08:26 Dose: 3 ml Documented By: MICHAELA Spironolactone (Spironolactone 25 Mg Tablet) 12.5 mg PO DAILY [facility]; Protocol Last Admin: 05/19/24 08:20 Dose: 12.5 mg Documented By: MICHAELA Labs 05/19/24 05:59 05/19/24 05:59 Labs: Laboratory Results - last 24 hr 05/18/24 05/19/24 05/19/24 18:40 05:59 06:06 MCV 89.6 MCH 30.5 MCHC 34.0 RDW 13.4 Plt Count 301 D MPV 9.4 Absolute Nucleated RBC 0.000 Nucleated RBC % (auto) 0.0 VBG pH 7.37 VBG pCO2 62 VBG pO2 35 VBG HCO3 36 H VBG O2 Saturation 50.0 VBG Base Excess 8.6 Anion Gap 13 Estim Creat Clear Calc 57.6 Estimated GFR > 60 Random Glucose 140 H Calcium 9.6 Nasal Screen MRSA (PCR) NEGATIVE Nasal S. aureus Screen NEGATIVE Nasal MRSA/S.aureus Interp SEE NOTE Microbiology Microbiology Results: Microbiology 05/17/24 14:54 Blood Culture - Preliminary Blood - Venous No growth after 24 hours. 05/17/24 14:54 Blood Culture - Preliminary Blood - Venous No growth after 24 hours. Assessment and Plan (1) COPD (chronic obstructive pulmonary disease): Status: Acute Plan d3 for 84yo M with COPD not on home O2, HTN, HLD, HFpEF, chronic AF on apixaban, and GERD presenting with dyspnea x 1-2 wk, found to be hypoxic with pneumonia + COPD exacerbation sepsis and acute hypoxic respiratory failure due to PNA with COPD exacerbation - 05/17- ceftriaxone + azithromycin, follow BCx, trend PCT, MRSA swab negative, urinary antigens for Legionella and pneumococcus + pending - 05/17-05/19 methylprednisolone, 05/19- prednisone taper, standing/prn nebs, Trelegy - supplemental O2, wean as tolerated; goal SaO2 no greater than 92% given CO2 retention hyperK - give 1 dose Lokelma; recheck BMP in AM acute lactic acidosis - due to albuterol, not severe sepsis chronic HFpEF - continue furosemide + spironolactone chronic AF - continue metoprolol succinate + diltiazem - continue apixaban HLD - continue statin GERD - PPI VTE ppx - apixaban dispo - eventualhome with VNA In my clinical judgment, the patient requires continued inpatient hospitalization for the following reasons: hypoxia, IV ABX Total time managing care of this patient today: 35 minutes. Quality Stroke Does the patient have a stroke diagnosis?: No VTE Prior VTE?: No VTE Risk Level:: Medical - moderate - high VTE Device Contraindication: Treatment Not Indicated VTE Drug Contraindication: N/A - Med Ordered
[2024-05-19] MEDS: cefTRIAXone sodium 1 GM VIAL IVPUSH (16:16)
[2024-05-19] MEDS: Azithromycin 500 MG in 0.9 % Sodium Chloride 250 ML 125 MG IV (16:16)
[2024-05-19] MEDS: dilTIAZem HCL CD 120 MG CAP.ER.DEG PO (21:09)
[2024-05-20 03:19] VITALS: BP 119/70; PULSE 100; RESP 20; TEMP 36.4; O2SAT 93
[2024-05-20] MEDS: Omeprazole 20 MG CAPSULE.DR PO (05:44)
[2024-05-20 06:48] VITALS: BP 121/74; PULSE 110; RESP 16; TEMP 36.6; O2SAT 90
[2024-05-20 07:27] LABS: Hemoglobin 14.2 g/dl (14.0-18.0); Mean Corpuscular Hemoglobin 29.6 pg (27.0-33.0); Mean Corpuscular Volume 89.6 fL (80.0-98.0); Mean Platelet Volume 9.5 fL (9.4-12.4); Platelet Count 412 X10*3/uL (160-400); Red Cell Distribution Width 13.5 % (11.0-16.0); White Blood Count 16.5 X10*3/uL (4.8-10.8)
[2024-05-20] MEDS: Albuterol/Iprat 2.5/0.5MG 3 ML AMPUL.NEB INHALE ×2 (07:33→11:17)
[2024-05-20] MEDS: Fluticasone/Umeclidinium/Vilanterol 200/62.5/25 BLST.W.DEV 1 PUFF INHALE (07:35)
[2024-05-20 07:36] VITALS: PULSE 110; RESP 18; O2SAT 90
[2024-05-20 07:49] LABS: Anion Gap 15 (12-20); Blood Urea Nitrogen 48 mg/dL (9-16); Carbon Dioxide 30 mmol/L (22-29); Chloride 94 mmol/L (96-108); Estimated Glomerular Filt Rate > 60; Glucose Random 114 mg/dL (60-115); Potassium 4.9 mmol/L (3.3-5.1); Sodium 134 mmol/L (135-145)
[2024-05-20 08:04] LABS: Procalcitonin 0.49 ng/mL
[2024-05-20 08:58] VITALS: BP 139/60; PULSE 98
[2024-05-20 09:17] VITALS: PULSE 110; PULSE 114; PULSE 74; O2SAT 86; O2SAT 90; O2SAT 93
[2024-05-20] MEDS: predniSONE 20 MG TABLET 40 MG PO (09:23)
[2024-05-20] MEDS: rOPINIRole HCL 2 MG TABLET PO (09:23)
[2024-05-20] MEDS: dilTIAZem HCL CD 240 MG CAP.ER.DEG PO (09:25)
[2024-05-20] MEDS: Furosemide 20 MG TABLET PO (09:25)
[2024-05-20] MEDS: Multivitamin TABLET 1 TAB PO (09:25)
[2024-05-20] MEDS: Apixaban 5 MG TABLET PO (09:25)
[2024-05-20] MEDS: Metoprolol Succinate ER 100 MG TAB.ER.24H PO (09:25)
[2024-05-20] MEDS: Atorvastatin Calcium 20 MG TABLET PO (09:26)
[2024-05-20] MEDS: Spironolactone 25 MG TABLET 12.5 MG PO (09:27)
[2024-05-20] MEDS: 0.9 % Sodium Chloride Flush 3 ML SYRINGE IVFLUSH (09:28)
--- NOTE | 2024-05-20 09:28 | W.MHC.F2F ---
Service Date Service Date: 05/20/24 Encounter Date of encounter: 05/20/24 Reasons for Services Signs and symptoms assessed: work of breathing/hypoxia Reason for assisted: medication management, medication treatment, teach disease management and other (respiratory monitoring) MD Overseeing Care: Jefferson Taylor Homebound: Leaving the home is medically contraindicated at this time without the asist of a device and/or another person due th the listed conditions above and below. Reason homebound: shortness of breath with minimal effort Certification: Based on the above findings, I certify that this patient is confined to the home and needs intermittent assisted care, physical therapy and/or speech therapy, or continues to need occupational therapy. The patient is under my care, and I have initiated the establishment of the plan of care. The patient will be followed by a physician who will periodically review the plan of care. Time Spent With Patient Time: Total time managing care of this patient today ____ minutes.
--- NOTE | 2024-05-20 09:29 | PM.DS ---
DS: Providers Provider Date of Service: 05/20/24 Date of admission: 05/17/24 16:09 Date of discharge: 05/20/24 Primary care physician: Jefferson Taylor MD DS: Diagnosis Discharge Diagnosis (1) Acute hypoxic respiratory failure: Status: Acute (2) Pneumonia: Status: Acute (3) Asthma exacerbation in COPD: Status: Acute DS: Summary Hospital Course Hospital Course: From the history and physical by the admitting hospitalist, AVIS Gerard, 05/17/24: Pt is an 84-year-old male with a PMH significant for?COPD not on home O2, HTN, HLD, HFpEF, chronic AFib on Eliquis, and GERD who presents to the ED with?SOB and difficulty breathing for the past 1-2 weeks, worse the past 3 days. Pt is accompanied by his who notes pt has been experiencing symptoms for awhile, though refused to come to the ED until this morning when he felt like he could not breathe. In triage was satting at 71% on RA. Not on home O2. Cough has been productive of whitish sputum. Reports feeling cold, but no measured fever. No nausea, vomiting, abdominal pain. Denies chest pain/pressure, palpitations. In the ED pt was tachycardic up to 101, tachypneic up to 24, and desatting as low as 71% on RA. Labs were significant for leukocytosis 16.4, lactic acid 2.6, and BNP 536. Stable H&H. No significant electrolyte abnormalities. Renal function WNL. Hepatic function WNL. Troponin negative. Tested negative for flu, COVID, RSV. CXR showed new right lower lobe pneumonia. EKG demonstrated atrial fibrillation with HR of 92. Pt was treated with DuoNebs, Solu-Medrol, ceftriaxone, and azithromycin. Pt will be admitted to the hospital for treatment and further evaluation of acute hypoxic respiratory failure in the setting of acute COPD exacerbation with underlying pneumonia with sepsis. 84yo M with COPD not on home O2, HTN, HLD, HFpEF, chronic AF on apixaban, and GERD presenting with dyspnea x 1-2 wk, found to be hypoxic with pneumonia + COPD exacerbation for which he was admitted to the medical-surgical unit. He was treated with methylprednisolone, ceftriaxone, azithromycin, and nebulizer treatments with clinical improvement. He was weaned off O2 at rest but did require 2L of home O2 with ambulation. He was discharged on cefuroxime, azithromycin, and prednisone taper with VNA services. CXR should be repeated in 4-6 weeks. Status at Discharge Functional status at discharge: wheelchair bound Time Attestation Discharge Coordination Time (in mins): 40 Quality: Safe Use of Opioids Does Pt have an Active Cancer Diagnosis on the Problem List?: No Quality: Stroke Does the patient have a stroke diagnosis?: No Physical Exam Vital Signs: Vital Signs: Last Vital Signs Temp 97.9 F 05/20/24 06:48 Pulse 98 05/20/24 08:58 Resp 18 05/20/24 07:36 BP 139/60 05/20/24 08:58 Pulse Ox 90 L 05/20/24 06:48 O2 Del Method Room Air 05/20/24 06:48 O2 Flow Rate 2 05/19/24 07:00 BMI result Body Mass Index 25.1 Gen: in no acute distress HEENT: sclera anicteric, moist mucus membranes Neck: supple Lungs: diminished R base Heart: irregular, no murmurs Abd: soft, non-tender, non-distended Ext: no edema Skin: warm/well-perfused Neuro: alert and oriented x3, no focal findings Psych: appropriate affect DS: Data Data Completed and Pending Completed studies during hospitalization [Text1]: Laboratory Results WBC 16.5 X10*3/uL (4.8-10.8) H 05/20/24 06:44 RBC 4.80 X10*6/uL (4.60-5.80) 05/20/24 06:44 Hgb 14.2 g/dl (14.0-18.0) 05/20/24 06:44 Hct 43.0 % (42.0-52.0) 05/20/24 06:44 MCV 89.6 fL (80.0-98.0) 05/20/24 06:44 MCH 29.6 pg (27.0-33.0) 05/20/24 06:44 MCHC 33.0 g/dl (31.0-36.0) 05/20/24 06:44 RDW 13.5 % (11.0-16.0) 05/20/24 06:44 Plt Count 412 X10*3/uL (160-400) H D 05/20/24 06:44 MPV 9.5 fL (9.4-12.4) 05/20/24 06:44 Immature Gran % (Auto) 0.5 % (0.0-0.4) H 05/17/24 14:03 Neut % (Auto) 81.2 % (45-73) H 05/17/24 14:03 Lymph % (Auto) 6.1 % (20-40) L 05/17/24 14:03 Travis % (Auto) 11.9 % (2-11) H 05/17/24 14:03 Eos % (Auto) 0.1 % (0-4) 05/17/24 14:03 Baso % (Auto) 0.2 % (0-2) 05/17/24 14:03 Lymph # (Auto) 1.0 X10*3/uL (1.2-4.9) L 05/17/24 14:03 Travis # (Auto) 2.0 X10*3/uL (0.1-1.2) H 05/17/24 14:03 Eos # (Auto) 0.0 X10*3/uL (0.0-0.4) 05/17/24 14:03 Baso # (Auto) 0.0 X10*3/uL (0.0-0.2) 05/17/24 14:03 Abs Immat Gran (auto) 0.09 X10*3/uL (0.00-0.03) H 05/17/24 14:03 Absolute Neuts (auto) 13.3 x10*3/uL (2.0-8.3) H 05/17/24 14:03 Absolute Nucleated RBC 0.000 X10*3/uL (0.0-0.012) 05/20/24 06:44 Nucleated RBC % (auto) 0.0 /100WBC (0.0-0.2) 05/20/24 06:44 Smear Tech's Comments VERIFIED 05/17/24 14:03 Hold Purple Top SEE NOTE 05/20/24 06:35 PT 29.3 SEC (10.9-12.4) H D 05/17/24 14:54 INR 2.5 (0.9-1.1) H 05/17/24 14:54 APTT 36.6 SEC (26.0-36.8) 05/17/24 14:54 VBG pH 7.37 (7.32-7.43) 05/19/24 06:06 VBG pCO2 62 mmHg 05/19/24 06:06 VBG pO2 35 mmHg 05/19/24 06:06 VBG HCO3 36 mmol/L (22-26) H 05/19/24 06:06 VBG O2 Saturation 50.0 % 05/19/24 06:06 VBG Base Excess 8.6 mmol/L 05/19/24 06:06 Sodium 134 mmol/L (135-145) L 05/20/24 06:44 Potassium 4.9 mmol/L (3.3-5.1) 05/20/24 06:44 Chloride 94 mmol/L (96-108) L 05/20/24 06:44 Carbon Dioxide 30 mmol/L (22-29) H 05/20/24 06:44 Anion Gap 15 (12-20) 05/20/24 06:44 BUN 48 mg/dL (9-16) H 05/20/24 06:44 Creatinine 1.13 mg/dL (0.5-1.4) 05/20/24 06:44 Estim Creat Clear Calc 52.0 05/20/24 06:44 Estimated GFR > 60 05/20/24 06:44 Random Glucose 114 mg/dL (60-115) 05/20/24 06:44 Lactic Acid 2.6 mmol/L (0.5-2.0) H* 05/17/24 14:54 Calcium 10.0 mg/dL (8.4-10.2) 05/20/24 06:44 Magnesium 1.8 mg/dL (1.6-2.6) 05/17/24 14:03 Total Bilirubin 0.9 mg/dL (0.0-1.0) 05/17/24 14:54 Direct Bilirubin 0.4 mg/dL (0.0-0.5) 05/17/24 14:54 AST 13 U/L (5-37) 05/17/24 14:54 ALT < 6 U/L (0-40) 05/17/24 14:54 Alkaline Phosphatase 119 U/L (39-117) H 05/17/24 14:54 Troponin I High Sens < 2.7 ng/L (<3.5-35.0) 05/17/24 14:03 B-Natriuretic Peptide 536 pg/mL (<100) H 05/17/24 14:03 Total Protein 6.5 g/dL (6.5-8.0) 05/17/24 14:54 Albumin 3.2 g/dL (3.5-5.0) L 05/17/24 14:54 Procalcitonin 0.49 ng/mL 05/20/24 06:44 Nasal Screen MRSA (PCR) NEGATIVE (Negative) 05/18/24 18:40 Nasal S. aureus Screen NEGATIVE (Negative) 05/18/24 18:40 Nasal MRSA/S.aureus Interp SEE NOTE 05/18/24 18:40 Influenza Type A (PCR) NEGATIVE (Negative) 05/17/24 14:03 Influenza Type B (PCR) NEGATIVE (Negative) 05/17/24 14:03 RSV RNA Qual (PCR) NEGATIVE (Negative) 05/17/24 14:03 SARS-CoV-2 RNA (RT-PCR) NEGATIVE (Negative) 05/17/24 14:03 Impressions Chest X-Ray 05/17/24 13:31 IMPRESSION: COPD and extensive bilateral lung scarring. Right lower lobe pneumonia. Follow-up is recommended to document resolution. Electronically signed by: Yony Jaimes MD 05/17/2024 02:02 PM EDT Discharge Plan Discharge Anticipated Discharge Date/Time: 05/20/24 12:19 Patient Disposition: Home Health Service Discharge Diagnosis: hypoxia due to pneumonia and COPD exacerbation Referrals: [facility] [Outside] - 1 Week Jefferson Taylor MD [Primary Care Provider] - 1 Week Discharge Medications: New cefuroxime axetil 500 mg tablet 500 mg PO BID Qty: 8 0RF azithromycin 500 mg tablet 500 mg PO DAILY 4 Days Qty: 4 0RF prednisone 10 mg tablet See Rx Instructions .ROUTE .COMPLEX Qty: 12 0RF Rx Instructions: 30 mg daily x 2 days, then 20 mg daily x 2 days, then 10 mg daily x 2 days Continued atorvastatin 20 mg tablet 20 mg PO DAILY Qty: 90 3RF spironolactone 25 mg tablet 12.5 mg PO DAILY 90 Days Qty: 45 2RF metoprolol succinate 100 mg tablet extended release 24 hr 100 mg PO DAILY Qty: 90 3RF Trelegy Ellipta 200-62.5-25 mcg blister with device 1 ea inhalation DAILY PreserVision AREDS 2,148 mcg-113 mg-45 mg-17.4mg Tablet 2 tab PO BID Rx Instructions: administer with AM and PM meals pantoprazole 40 mg tablet,delayed release (DR/EC) 40 mg PO DAILY@0630 apixaban 5 mg tablet 5 mg PO BID albuterol sulfate 2.5 mg /3 mL (0.083 %) solution for nebulization 2.5 mg inhalation Q4H PRN (Reason: Shortness Of Breath) albuterol sulfate 90 mcg/actuation HFA aerosol inhaler 2 puff inhalation Q6H PRN (Reason: Shortness Of Breath Or Wheezing) diltiazem HCl 120 mg capsule,extended release 24 hr 120 mg PO BEDTIME diltiazem HCl 240 mg capsule,extended release 24 hr 240 mg PO DAILY ropinirole 2 mg tablet 2 mg PO BID furosemide 20 mg tablet 20 mg PO BID Discharge Orders: Discharge Order (Routine); Ordered 05/20/24 Ordered By: Luis Holloway Diet: Advance to usual diet Activity on Discharge: As tolerated Stand Alone Forms: Patient Portal Discharge page Print Language: [place] Care Plan Goals: respiratory health Health Concerns: hypoxia due to pneumonia and COPD exacerbation Plan of Treatment: home with VNA services for respiratory monitoring 2L of O2 via nasal cannual with ambulation take cefuroxime 500 mg twice daily for 4 days take azithromycin 500 mg once daily for 4 days take prednisone as follows: - 30 mg once daily for 2 days, then 20 mg once daily for 2 days, then 10 mg once daily for 2 days Please follow up with your primary care doctor within 1 week. Return to the hospital if you experience recurrent or worsening symptoms. Repeat chest X-ray in 4-6 weeks. Assessment: See Discharge Summary.
--- NOTE | 2024-05-20 10:38 | MHC.CM.PN ---
INN 05/18/24 Patient is discharged to home with [facility]. Patient qualies for home oxygen 2L via [place]. He has been set up with home oxygen by respiratory therapy. Patient has arranged for a ride home.
[2024-05-20 11:20] VITALS: PULSE 96; RESP 16; O2SAT 92
[2024-05-21 14:09] LABS: Strep Pneumo Ag urine Not Detected (Not Detected)
[2024-05-25 13:24] LABS: Legionella Ag Urine Not Detected (Not Detected)
== END 2024-05-20 11:44 | disposition home health service (06) | DRG 871 ==
LOC: HO.ED 16:09 → HO.EDOVER 16:29 → HO.S3 05-18 07:50
PROVIDERS: Registered Nurse Emergency; Admitting Provider Student in an Organized Health Care Education/Training Program; Emergency Provider Emergency Medicine; PCP Internal Medicine; Visit Provider Family Medicine
DX: A41.9 Sepsis, unspecified organism (principal); J18.9 Pneumonia, unspecified organism; J96.01 Acute respiratory failure with hypoxia; J44.0 Chronic obstructive pulmonary disease with (acute) lower respiratory infection; J44.1 Chronic obstructive pulmonary disease with (acute) exacerbation; I48.19 Other persistent atrial fibrillation; E87.21 Acute metabolic acidosis; I50.32 Chronic diastolic (congestive) heart failure; E87.5 Hyperkalemia; E78.5 Hyperlipidemia, unspecified; K21.9 Gastro-esophageal reflux disease without esophagitis; Z20.822 Contact with and (suspected) exposure to COVID-19; Z79.01 Long term (current) use of anticoagulants; Z79.899 Other long term (current) drug therapy
CPT/HCPCS: 0241U; 36415; 71046; 80048; 80053; 80076; 82803; 83605; 83735; 83880; 84145; 84484; 85025; 85027; 85610; 85730; 87040; 87449; 87640; 87641; 87899; 93005; 94640; 97161; 99285; J0456; J0696; J2919

== ENCOUNTER → 2024-05-17 13:31 | Outpatient (BNV) | payer MEDICARE, SELFPAY | PROVIDERS: Emergency Provider Emergency Medicine; PCP Internal Medicine; Visit Provider Internal Medicine Cardiovascular Disease | DX: I48.91 Unspecified atrial fibrillation (principal); I45.10 Unspecified right bundle-branch block; I25.2 Old myocardial infarction | CPT/HCPCS: 93010 ==

== ENCOUNTER → 2024-05-17 13:31 | Outpatient (BNV) | payer MEDICARE, SELFPAY | PROVIDERS: Emergency Provider Emergency Medicine; PCP Internal Medicine; Visit Provider Radiology Diagnostic Radiology | DX: J84.10 Pulmonary fibrosis, unspecified (principal); J44.9 Chronic obstructive pulmonary disease, unspecified; J18.9 Pneumonia, unspecified organism | CPT/HCPCS: 71046 ==

== ENCOUNTER → 2024-05-17 16:09 | Outpatient (BNV) | payer MEDICARE, SELFPAY | PROVIDERS: Admitting Provider Student in an Organized Health Care Education/Training Program; Emergency Provider Emergency Medicine; PCP Internal Medicine; Visit Provider Student in an Organized Health Care Education/Training Program | DX: J96.01 Acute respiratory failure with hypoxia (principal); J18.9 Pneumonia, unspecified organism; J44.1 Chronic obstructive pulmonary disease with (acute) exacerbation | CPT/HCPCS: 99223; 99232; 99239; G0180 ==

== ENCOUNTER 2024-05-30 09:20 | Outpatient (AMB) | payer MEDICARE, SELFPAY ==
--- NOTE | 2024-05-30 09:21 | A.OFFPC_ITS ---
Vital Signs 05/30/24 09:24 Height 5 ft 8 in Weight 161 lb BMI 24.5 BP 120/70 Blood Pressure Location Lt brachial Position Sitting Pulse 95 Pulse Source Pulse Oximeter Temp 97.4 F Temp Source Axillary Pulse Oximetry (%) 92 Oxygen Delivery Method Room Air Intake Visit Reasons: Hospital F/U Records Clerk Required: No Accompanied by: Spouse Allergies No Known Allergies [NO KNOWN ALLERGIES] Allergy (Unknown, Verified 05/30/24 09:21) UNKNOWN Tobacco use date assessed: 05/30/24 Fall risk assessment: No Falls in past year Last assessed Fall Risk: 05/30/24 Dental Screening Dental Screen Date: 05/30/24 Did you have a dental visit in the last 12 months?: No Did you have a dental problem in the last 6 months where you did not have access to dental care?: No PFSH Medical History Elevated brain natriuretic peptide (BNP) level COPD (chronic obstructive pulmonary disease) Pneumonia Pneumonia COPD (chronic obstructive pulmonary disease) with emphysema Chronic atrial fibrillation HTN (hypertension) Bilateral carotid artery disease Hyperlipidemia History of cardiomyopathy COPD (chronic obstructive pulmonary disease) History of cardioversion Surgical History History of tonsillectomy and adenoidectomy Hx of colonoscopy Hx of cardiac cath Family History Father Stroke CVD (cardiovascular disease) Mother Colon cancer Diabetes Sister Diabetes COPD (chronic obstructive pulmonary disease) Breast cancer Social History Household Members: Spouse Housing: House Do you presently have visiting nurse or other home services: No Comment: pt refuses chair alarm, he has restless legs ans needs to stand often Patient Tobacco Use Status: Former Tobacco user Tobacco use type: Cigarette Second Hand Smoke Exposure: No Advance Directives Date on File: 06/11/21 service: No 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al status: retired 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 Cognitive needs: No Hearing needs: No Vision needs: Yes (rx glasses) Questionnaire PHQ-9 Over the last 2 weeks, how often have you been bothered by any of the following problems? 1. Little interest or pleasure in doing things: not at all 2. Feeling down, depressed, or hopeless: not at all 3. Trouble falling or staying asleep, or sleeping too much: not at all 4. Feeling tired or having little energy: not at all 5. Poor appetite or overeating: not at all 6. Feeling bad about yourself - or that you are a failure or have let yourself or your family down: not at all 7. Trouble concentrating on things, such as reading the newspaper or watching television: not at all 8. Moving or speaking so slowly that other people could have noticed. Or the opposite - being so fidgety or restless that you have been moving around a lot more than usual: not at all 9. Thoughts that you would be better off or of hurting yourself in some way: not at all Total score: 0 Source: Developed by Drs. Yony Riley, Iliana Barriga, Torres Aguilar and colleagues, with an educational tio from [employer]. Thrive Questionnaire Date Thrive assessed: 05/30/24 I am a: Patient Within the past 12 months, did the food you bought not last and you didn't have the money to get more?: Never true Within the past 12 months, did you worry whether your food would run out before you got money to buy more?: Never true Do you have trouble paying for medicines?: No Do you have trouble getting transportation to medical appointments?: No Do you have trouble paying your heating and electricity bill?: No Do you have trouble taking care of your child, family member or friend?: No Do you have trouble with day-to-day activities such as bathing, preparing meals, shopping, managing finances, etc.?: No Are you currently unemployed and looking for a job?: No Are you interested in more education?: No THRIVE Score: 0 AUDIT C Alcohol Use Questionnaire (AUDIT-C) 1. How often do you have a drink containing alcohol?: Never 3. How often do you have six or more drinks on one occasion?: Never Total Score: 0 CONNOR-7 AMB Questionnaire CONNOR-7 Date CONNOR - 7 assessed: 05/30/24 Feeling nervous, anxious, or on edge: 0 = Not at all Not being able to stop or control worryin = Not at all Worrying too much about different things: 0 = Not at all Trouble relaxin = Not at all Being so restless that it is hard to sit still: 0 = Not at all Becoming easily annoyed or irritable: 0 = Not at all Feeling afraid as if something awful might happen: 0 = Not at all Total CONNOR-7 score (0-4 normal; 5-9 mild; 10-14 moderate; 15-21 severe): 0 Source: Developed by Drs. Yony Riley, Iliana Barriga, Torres Aguilar and colleagues, with an educational tio from [employer]. Physical exam (Primary Care) Vital Signs: Last Vital Signs Temp 97.4 F 05/30/24 09:24 Pulse 95 05/30/24 09:24 BP 120/70 05/30/24 09:24 Pulse Ox 92 05/30/24 09:24 Oxygen Delivery Method Room Air 05/30/24 09:24 BMI result Body Mass Index 24.5 Tobacco/Smoking Status: Tobacco use Status Tobacco use date assessed 05/30/24 05/30/24 09:38 Patient Tobacco Use Status Former Tobacco user 05/30/24 09:38 Tobacco use type Cigarette 05/30/24 09:38 PHQ-9: PHQ-9 Score PHQ-9: Total score 0 05/30/24 09:38 Thrive Assessment: Date of Thrive Assessment Date Thrive assessed 05/30/24 05/30/24 09:38 Coding Level of Care Code New Pt Level 4 (31610) Complex EM visit Add On G2211 Diagnoses Chronic atrial fibrillation I48.20 Asthma exacerbation in COPD J44.1 Assessment & Plan Assessment & Plan (1) Chronic atrial fibrillation: Comment: failed maintenance of rhythm despite antiarrhythmic drug therapy and cardioversion. Maintained on rate control without obvious cardiac decompensation Code(s): I48.20 - Chronic atrial fibrillation, unspecified Category: Medical Plan: Prescription for diltiazem refilled. Continue use of anticoagulants. (2) Asthma exacerbation in COPD: Code(s): J44.1 - Chronic obstructive pulmonary disease with (acute) exacerbation Category: Medical Plan: Not using the oxygen much. Completed the abx and prednisone. Hospital d/c note revd. Rpt WBC and Xray in three weeks. Plan History of Present Illness The patient is an 84-year-old male presenting with a follow-up post- hospitalization for pneumonia and management of ongoing health concerns. He was hospitalized for bacterial pneumonia, during which he was treated with antibiotics and prednisone and used supplemental oxygen. Having completed the treatment regimen, he reports a full recovery and a return to his pre- hospitalization baseline. Despite being supplied with substantial home oxygen equipment, he no longer perceives any need for supplemental oxygen. This is partly due to his limited mobility and because he does not leave his home frequently. The patient also has a history of atrial fibrillation and reports taking blood thinners. He acknowledges visual impairment secondary to macular degeneration, hindering his ability to drive, though his activities of daily living remain unaffected. 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 He resides with family who aids with grocery shopping and other tasks. He denies any new symptoms since his last episode and advocates for reducing his home oxygen supply to avoid unnecessary insurance charges. 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 - Lives with family who assists with daily activities, including grocery shopping. - Has a history of adapting his mobility by using a jig with his walker. - Visual impairment due to macular degeneration excludes him from driving. - Socially limited by necessity of home residence. Review of Systems - Respiratory: Denies current need for supplemental oxygen; reports a history of pneumonia treated successfully. - Cardiovascular: Denies current symptoms but has a history of atrial fibrillation managed on blood thinners. - Ophthalmologic: Reports macular degeneration, resulting in significant visual impairment. - Genitourinary: Denies urinary symptoms or difficulty. - Neurological: Denies any neurological symptoms impacting activities of daily living. Physical Exam General: Cooperative and healthy appearing Nutritional Appearance: Well nourished Orientation/consciousness: Patient oriented x3 Limitations: No limitations Head: Normal to inspection General: Appearance normal, both eyes and all related structures Neck: Normal visual inspection Chest: Normal palpation of entire chest wall Respiratory: Patient was previously hospitalized for pneumonia and used oxygen, but currently does not feel the need for oxygen. ormal respiratory effort Neurology: Patient oriented x3. Results - Labs: Blood work during hospitalization indicated elevated white count due to infection. - Tests and Diagnostics: Pneumonia confirmed during past hospitalization. Plan To ensure complete recovery from pneumonia, a repeat chest X-ray and blood work are planned two weeks after June 17. This will help confirm the complete resolution of infection. I will facilitate the removal of unnecessary oxygen equipment to avoid charges on insurance, ensuring comfort at home given his limited requirement for supplemental oxygen. A prescription for diltiazem 240 mg will be issued, with continued administration of additional medications for atrial fibrillation as necessary. Further investigation of vision management, given macular degeneration, and associated adaptations will be monitored. Follow-ups will assess the efficacy of management in light of ongoing health conditions. Patient was informed and verbally consented to the use of an ambient scribe for clinic note documentation during this visit. Discussion Notes I explained to the patient that a follow-up chest X-ray and blood work are necessary to ensure full resolution of pneumonia and to confirm that elevated white count has returned to normal levels post-infection. We explored the patient's home oxygen situation, and I advised awaiting the reduction of e quipment listed before contacting the provider to collect excess supplies. I emphasized that this would mitigate unnecessary insurance charges. We addressed his need for the prescriptions, with refills particularly for diltiazem, confirming continuity of medication management. Plans to review his continuation on blood thinners for atrial fibrillation were discussed. Further instructions included utilizing support through family for managing daily activities, considering his visual impairment. A follow-up in three months is scheduled. Patient Instructions - Return for a follow-up appointment in three months. - Undergo a chest X-ray and blood work two weeks after June 17. - Contact the oxygen supplier in two weeks if equipment is deemed unnecessary. - Monitor medication refills and follow dosage instructions for diltiazem and blood thinners. - Maintain current lifestyle adaptations for visual impairment and seek assistance from family as needed. Medications: New diltiazem HCl CD 240 mg PO DAILY 90 caps 1RF Discontinued prednisone Discontinued Reason: Patient Completed Course 30 mg daily x 2 days, then 20 mg daily x 2 days, then 10 mg daily x 2 days 12 tabs 0RF
[2024-05-30 09:24] VITALS: BP 120/70; PULSE 95; TEMP 36.3; O2SAT 92; BMI 24.5
--- OUTSIDE RECORDS SUMMARY | 2024-05-30 09:58 | XMS_ITS | Patient Health Record ---
Author Organization Yony Reynaga III, MD Address [address] [place] [address] [place] [address] Care Team Providers Care Development Professional Name Role Phone Vicente Cifuentes MD Primary Care Provider Yony Tinsley [facility] [phone] Allergies Allergen (clinical drug ingredient) Drug/Non Drug Allergy documented on EMR Reaction Allergy Type Onset Date Status No Known Drug Allergy Unknown Drug Allergy Active Results Component Value Reference Range Notes PET CT fusion skull to thigh Reviewed date:03/28/2024 02:16:55 PM Interpretation: Performing Lab: Notes/Report: [address] [address] PET Report Signed Patient: Liz Washington MR#: [id number] : 1940 Acct:[id number] Age/Sex: 84 / M ADM Date: 03/20/24 Loc: HO.PET Attending Dr: Yony Reynaga MD Ordering Physician: Yony Reynaga MD Date of Service: 03/20/24 Procedure(s): PET CT fusion skull to thigh Accession Number(s): [id number] cc: Yony Reynaga MD; Vicente Cifuentes MD [...] in right upper lobe anterior segment scarring GOPHERMAN background. No metabolically active lymph nodes in [...] 03/22/24 0734 DD/ 1415 TD/TT: 03/20/24 1600 Fitting Room Inspector: [place] [id number] PET Report Signed Patient: Raymond Washington MR#: [id number] : 1940 Acct:[id number] Age/Sex: 84 / M ADM Date: 03/20/24 Loc: HO.PET Attending Dr: Yony Reynaga MD Ordering Physician: Yony Reynaga MD Date of Service: 03/20/24 Procedure(s): PET CT fusion skull to thigh Accession Number(s): [id number] cc: Yony Reynaga MD; Vicente Cifuentes MD [...] in right upper lobe anterior segment scarring GOPHERMAN background. No metabolically active lymph nodes in [...] 03/22/24 0734 DD/ 1415 TD/TT: 03/20/24 1600 Fitting Room Inspector: LEONCIO Reason For Referral Reason Consult and [...] Problem Status W/U Status Risk Notes Problem 9577677 Former smoker (Z87.891) Active confirmed He is a former smoker. We made a plan to resist relapsing times stress or illness. Problem 034495990 Mixed hyperlipidemia (E78.2) Active confirmed No change was made in his medical regimen today. 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 He has significant obstructive disease which did not improve with bronchodilato rs. Problem 183816363 Anticoagulated (Z79.01) Active confirmed He has had no recent bleeding. He is to be anticoagulate d. Problem 989408518 Peripheral vascular disease (I73.9) Active confirmed He says he experiences claudication in one block. No lesions were seen on his feet. This issue will be managed by primary care. Problem 27518777 Restless leg syndrome (G25.81) Active confirmed Problem 999980092 Chronic GERD (K21.9) Active confirmed His reflux symptoms are controlled with medication. Problem 270453020 Chronic atrial fibrillation (I48.20) Active confirmed He is in an irregularly irregular rhythm today. Denies any recent chest pain. Problem 533321525 Right upper lobe pulmonary nodule (R91.1) Active confirmed The right upper lobe lesion is PET negative. He is being referred to pulmonary for treatment of his lung disease and to follow this nodule. I have ordered a repeat CT scan of the chest in 3 months. Problem 903436707 COPD, moderate (J44.9) Active confirmed He is a nonsmoker but has COPD. He was breathing comfortably with an oxygen saturation 97%. He was continuing current medications. 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) Active confirmed Vital Signs Heart Rate 85 /min 03/28/2024 Temperature 97.8 degrees Fahrenheit 03/28/2024 Oximetry 97 % 03/14/2024 Blood pressure diastolic 64 mm Hg 03/28/2024 Height 5'10 in 03/28/2024 Blood pressure systolic 121 mm Hg 03/28/2024 Weight 152 lbs 03/28/2024 BMI 21.81 kg/m2 03/28/2024 Encounters Encounter Location Date Provider Diagnosis Yony Reynaga III, MD [address] [place] [address] [place] [address] 03/14/2024 Yony Reynaga Right upper lobe pulmonary nodule R91.1 ; COPD, moderate J44.9 ; Chronic atrial fibrillation I48.20 ; Anticoagulated Z79.01 and Former smoker Z87.891 Yony Reynaga III, MD [address] [place] [address] [place] [address] 03/28/2024 Yony Reynaga Right upper lobe pulmonary [...] Details Provider Name:Yony Reynaga, 07/19/2024 10:30:00 AM, [address] [place] [address] [address], [place], [address], Insurance Providers Payer Name Payer Address Payer Phone Subscriber Number Group Number Insured Name Patient Relationship to Insured Coverage Start Date Coverage End Date [address] [facility] [place] [phone] [id number] LIZ WASHINGTON Self - patient is the insured MEDICARE NGS [address] [facility] [phone] [id number] LIZ WASHINGTON Self - patient is the insured Medical (General) History Medical History History ICD Code Right upper lobe 1.3 cm spiculated nodul e COPD Atrial fibrillation Pripheral edema GERD Carotid dicease Peripheral artery dicease Restless leg syndrome Hyperlipidemia Arthritis of the knee Anticoagulated with apixaban Emphysema L
--- OUTSIDE RECORDS SUMMARY | 2024-05-30 09:58 | XMS_ITS | Patient Health Record ---
Author Organization [facility] Address [address] [place] [address] Care Team Providers Care Corduroy Cutter Operator Name Role Phone Vicente Cifuentes MD Primary Care Provider Leo Abreu Unavailable [phone] Allergies No Known Allergies Reason For Referral [...] 10/27/2023 Encounters Encounter Location Date Provider Diagnosis [address] [address] 09/21/2023 Leo Bella Other viral warts B07.8 ; Pain in left foot M79.672 ; Pain in right foot M79.671 ; Plantar fascial fibromatosis M72.2 ; Metatarsalgia, left foot M77.42 ; Metatarsalgia, right foot M77.41 ; Tinea unguium B35.1 and Ingrowing nail L60.[address] [address] 10/27/2023 Leo Bella Other viral warts B07.8 ; Pain in left foot M79.672 ; Pain in right foot M79.671 ; Plantar fascial fibromatosis M72.2 ; Metatarsalgia, left foot M77.42 ; Metatarsalgia, right foot M77.41 ; Tinea unguium B35.1 and Ingrowing nail L60.[address] [address] 09/21/2023 Leo Bella Assessments Encounter Date Diagnosis [...] Date [employer] [place] Medicare Advantage [facility] [address] [facility] [place] [address] [phone] [id number] Mac Marsh Self - patient is the insured Medical (General) History Medical History History ICD Code Angina asthma Back,Hip,and Knee pain Broken bones Cancer Cataracts Headaches/Migraines Hepatitis Lung disease Macular degeneration Tuberculosis Chicken pox Transfusions Surgical History Surgery Date(Month/Year) carpal tunnel surgery 10/14/22 cancer surgery 2009
--- OUTSIDE RECORDS SUMMARY | 2024-05-30 09:58 | XMS_ITS ---
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) Active confirmed His pulmonary [...] Date Provider Diagnosis Yony Reynaga III, MD [address] [place] [address] [place] [address] 03/28/2024 Yony Reynaga Right upper lobe pulmonary [...] Appt Details Follow Up: 3 1/2 Months, [place] son: OV Provider Name:Yony Reynaga, 07/19/2024 10:30:00 AM, [address] [place] [address], [place] [address], [place], [address], Progress Notes * JUANPABLOFROYLAN LIZDOB: 2 (84 yo M)Acc No.[id number]:03/28/2024 Progress Notes Patient:?LIZ WASHINGTON Provider:?Yony Reynaga MD :1940???Age:84 Y???Sex:Male Con e:03/28/2024 Address:[address] [place], [place] [id number] Pcp:Vicente Cifuentes MD Subjective: * Chief Complaints: [...] Objective: * Vitals:?Ht: 5'10 , Wt:152, B PA:21.81, BP:121/64, HR:85, Temp:97.8, Ht-cm: 177.8, Wt-k.95. * [...] Reynaga MD Date:?06/2024 Generated for Nancy zapata/Kvng/Ramandeepitting on:?05/30/2024 09:58 AM EDT History and Physical Notes * [...]
--- OUTSIDE RECORDS SUMMARY | 2024-05-30 09:58 | XMS_ITS ---
Author Organization [facility] Address [address] [place] [address] Care Team Providers Care On Site Wastewater Systems Technician Name Role Phone Vicente Cifuentes MD Primary Care Provider Leo Abreu Unavailable [phone] Allergies No Known Allergies REASON FOR VISIT [...] 10/27/2023 Encounters Encounter Location Date Provider Diagnosis [facility] [place] [address] [place] [address] 10/27/2023 Leo Bella Other viral warts B07.8 [...] pin-point bleeding margins with sterile surgical blade (12306), silver nitrate chemocautery applied Progress Notes * Mac WASHINGTON ADOB: [birth year] (83 yo M)Acc No.[id number]:10/27/2023 Progress Notes Patient:?Mac Washington Provider:?Leo Bella DPM :1940???Age:83 Y???Sex:Male Con e:10/27/2023 Address:[facility] [address], [place] Pcp:Vicente Cifuentes MD Subjective: * Chief Complaints: [...] pin-point bleeding margins with sterile surgical blade (23917), silver nitrate chemocautery applied.? * Procedure Codes:?83909 Wart Destruction, 1-14, Modifiers: XS * Preventive [...] DPM Date:? 024 Generated for Nancy zapata/Kvng/eTranpaola on:?05/30/2024 09:58 AM EDT History and Physical [...]
--- OUTSIDE RECORDS SUMMARY | 2024-05-30 09:58 | XMS_ITS ---
Author Organization Ynoy Reynaga III, MD Address [address] [place] [address] Care Team Providers Care Bone Grinder Name Role Phone Vicente Cifuentes MD Primary Care Provider Yony Tinsley Unavailable [phone] Allergies Allergen (clinical drug ingredient) Drug/Non Drug [...] Problem Status W/U Status Risk Notes Problem 431282556 Right upper lobe pulmonary nodule (R91.1) Active confirmed The right upper lobe lesion is PET negative. He is being referred to pulmonary for treatment of his lung disease and to follow this nodule. I have ordered a repeat CT scan of the chest in 3 months. Problem 176266427 COPD, moderate (J44.9) Active confirmed He is a nonsmoker but has COPD. He was breathing comfortably with an oxygen saturation 97%. He was continuing current medications. Problem 206363160 Chronic atrial fibrillation (I48.20) Active confirmed He is in an irregularly irregular rhythm today. Denies any recent chest pain. Problem 795481911 Anticoagulated (Z79.01) Active confirmed He has had no recent bleeding. He is to be anticoagulate d. Problem 463235381 Chronic GERD (K21.9) Active confirmed His reflux symptoms are controlled with medication. Problem 910087889 Peripheral edema (R60.0) Active confirmed Problem 988330299 Peripheral vascular disease (I73.9) Active confirmed He says he experiences claudication in one block. No lesions were seen on his feet. This issue will be managed by primary care. Problem 264018156 Mixed hyperlipidemia (E78.2) Active confirmed No change was made in his medical regimen today. 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) Active confirmed Problem 4167925 Former smoker (Z87.891) Active confirmed He is [...] Date Provider Diagnosis Yony Reynaga III, MD [address] [place] [address] [address] [place], [place] [address] 03/14/2024 Yony Reynaga Right upper lobe pulmonary [...] at Provider Name:Yony Reynaga, 07/19/2024 10:30:00 AM, [address] [place] [address] [address] [place] [address], [place], [address], Progress Notes * LIZ WASHINGTONDOB: [birth year] (84 yo M)Acc No.[id number]:03/14/2024 Progress Notes Patient:?LIZ WASHINGTON Provider:?Yony Reynaga MD :1940???Age:84 Y???Sex:Male Con e:03/14/2024 Address:[address] [place], [place] [phone] Pcp:Vicente Cifuentes MD Subjective: * Chief Complaints: [...] THIGHS ?Imaging: PFT with DLCO * Procedure Codes:?47801 MEASU RE BLOOD OXYGEN LEVEL * Preventive [...] * Sign off status: Completed true * Provider:?oYny Reynaga MD Date:?02/22 Generated for Nancy zapata/Kvng/Ramandeepitting on:?05/30/2024 09:58 AM [...]
--- OUTSIDE RECORDS SUMMARY | 2024-05-30 09:58 | XMS_ITS ---
[facility] Address [address] [place] [address] Care Team Providers Care Fact Checker Name Role Phone Vicente Cifuentes MD Primary Care Provider Leo Abreu [phone] REASON FOR VISIT dispense [id number] Encounters Encounter Location Date Provider Diagnosis [facility] [address] [place] [address] 09/21/2023 Leo Bella Plan Of Treatment No Information Progress Notes * Mac WASHINGTON ADOB: [birth year] (83 yo M)Acc No.[id number]:09/21/2023 Patient:?Mac Washington :1940???Age:83 Y???Sex:Male Address:[address] [place] [address] * true * Date:? Generated for Printi benny/Kvng/eTransmitting on:?05/30/2024 09:57 AM EDT
--- OUTSIDE RECORDS SUMMARY | 2024-05-30 09:58 | XMS_ITS ---
Author Organization [facility] Address [address] [place] [address] Care Team Providers Care Buckler And Lacer Name Role Phone Vicente Cifuentes MD Primary Care Provider Leo Abreu Unavailable [phone] Allergies No Known Allergies REASON FOR VISIT [...] 09/21/2023 Encounters Encounter Location Date Provider Diagnosis [facility] [address] [place] [address] 09/21/2023 Leo Bella Other viral warts B07.8 [...] pin-point bleeding margins with sterile surgical blade (36497), silver nitrate chemocautery applied, recomm. Wartstick 40 percent Salicylic acid application under occlusion as directed Progress Notes * Mac WASHINGTON ADOB: [birth year] (83 yo M)Acc No.[id number]:09/21/2023 Progress Notes Patient:?Mac Washington Provider:?Leo Bella DPM :1940???Age:83 Y???Sex:Male Con e:09/21/2023 Address:[address] [place] [address], [facility] [place], [facility] Pcp:Vicente Cifuentes MD Subjective: * Chief Complaints: [...] pin-point bleeding margins with sterile surgical blade (68145), silver nitrate chemocautery applied, recomm. Wartstick 40 percent Salicylic acid application under occlusion as directed.? * Procedure Codes:?87334 Wart Destruction, 1-14, Modifiers: XS 60381 X-RAY EXAM OF RIGHT FOOT 3V, Modifiers: 26 , [id number] X-RAY EXAM OF LEFT FOOT 3V, Modifiers: 26 , [id number] AFO PLASTIC/OTH MATERIAL PREFAB, Modifiers: RT * [...] Interfil injection therapy, as well as surgical [place]/Endoscopic Fasciitomy surgical procedures if needed. Recommendations were [...] DPM Date:? 024 Generated for Nancy zapata/Kvng/Avery on:?05/30/2024 09:58 AM EDT History and Physical [...]
--- OUTSIDE RECORDS SUMMARY | 2024-05-30 09:58 | XMS_ITS | Clinical Summary ---
Author Organization [facility] Facility Address [address] [place] [address] Care Team Providers Care Sheet Metal Shop Helper Name Role Phone Unavailable Primary Care Provider [...] of 1 - PCV) 2007 Influenza Vaccine (Season Ended) 2024 Hepatitis B Vaccine Aged Out No longe r eligible based on patient's age to complete this topic [place] [address] [place] [address]
== END 2024-05-30 10:00 | disposition home or self-care (01) ==
LOC: HO.HMCHD 09:20
PROVIDERS: PCP Internal Medicine; Visit Provider Internal Medicine
DX: I48.20 Chronic atrial fibrillation, unspecified (principal); J44.1 Chronic obstructive pulmonary disease with (acute) exacerbation

== ENCOUNTER → 2024-05-30 09:20 | Outpatient (BNVA) | payer MEDICARE, SELFPAY | PROVIDERS: PCP Internal Medicine; Visit Provider Internal Medicine | DX: I48.20 Chronic atrial fibrillation, unspecified (principal); J44.1 Chronic obstructive pulmonary disease with (acute) exacerbation | CPT/HCPCS: 96127; 99202 ==

== ENCOUNTER → 2024-06-08 23:59 | Outpatient (BNV) | payer MEDICARE, SELFPAY | PROVIDERS: PCP Internal Medicine; Visit Provider Internal Medicine | DX: J96.01 Acute respiratory failure with hypoxia (principal); J44.1 Chronic obstructive pulmonary disease with (acute) exacerbation; I11.0 Hypertensive heart disease with heart failure | CPT/HCPCS: G0180 ==

== ENCOUNTER 2024-07-04 10:00 | Outpatient (REF) | payer MEDICARE, SELFPAY ==
--- NOTE | ~2024-07-04 | XR_ITS ---
CLINICAL HISTORY: J18.9 - Pneumonia, unspecified organism --- Additional Notes or Special Instruction s: cxr follow up 3 27 25 2 view chest x-ray Comparison: 05/17/2024 Findings: Lungs are clear without acute infiltrates. Stable chronic interstitial fibrosis. Stable asymmetric right apical thickening. Emphysema. Heart size normal. No acute bony abnormalities. Impression: Stable chronic disease without acute process This document has been electronically signed by: Ranjan Angeles MD on 07/04/2024 22:08:20
--- OUTSIDE RECORDS SUMMARY | 2024-07-04 12:00 | XMS_ITS | Clinical Summary ---
Author Organization [facility] Facility Address [address] [place] [address] Care Team Providers Care Mason Tender Name Role Phone Unavailable Primary Care Provider [...] patient's age to complete this topic [place] [address]
== END 2024-07-04 10:01 | disposition home or self-care (01) ==
LOC: HO.XRAY 10:00
PROVIDERS: PCP Internal Medicine; Visit Provider Physician Assistant
DX: J18.9 Pneumonia, unspecified organism (principal); I50.30 Unspecified diastolic (congestive) heart failure; E78.5 Hyperlipidemia, unspecified; I48.20 Chronic atrial fibrillation, unspecified; J44.9 Chronic obstructive pulmonary disease, unspecified
CPT/HCPCS: 71046; 99212

== ENCOUNTER 2024-07-04 10:00 | Outpatient (AMB) | payer MEDICARE, SELFPAY ==
--- NOTE | 2024-07-04 10:04 | A.OFFPC_ITS ---
Vital Signs 07/04/24 10:09 Height 5 ft 8 in Weight 69.853 kg BMI 23.4 BP 120/58 L Pulse 78 Pulse Source Pulse Oximeter Temp 97.5 F Temp Source Temporal Artery Scan Pulse Oximetry (%) 90 L Oxygen Delivery Method Room Air Intake Visit Reasons: rx follow up Polysomnographer Required: No Accompanied by: Spouse Allergies No Known Allergies [NO KNOWN ALLERGIES] Allergy (Unknown, Verified 07/04/24 10:06) UNKNOWN Tobacco use date assessed: 05/30/24 Dental Screening Dental Screen Date: 05/30/24 HPI HPI Comments History of Present Illness Details 84-year-old male with history of COPD no t on home oxygen, hypertension, chronic atrial fibrillation, hyperlipidemia presents to the office for follow-up. He was recently hospitalized from 05/17- due to community-acquired pneumonia and COPD exacerbation with acute hypoxemic respiratory failure. Symptoms have completely resolved and he did complete course of steroids and antibiotics. He was weaned successfully from supplemental O2. He has not yet completed follow- up chest x-ray to ensure resolution. He reports COPD symptoms are stable. He is compliant with his Trelegy inhaler and uses his rescue albuterol only as needed. He continues following with Cardiology for his atrial fibrillation as well as heart failure. He is compliant with his Eliquis for anticoagulation as well as diltiazem and metoprolol. He does weigh himself daily without any significant changes. He does report chronic dyspnea on exertion that has not worsened. Reports chronic edema in the lower extremities that is stable. He is no longer smoking. He is concerned about his restless legs syndrome. States this is not only occurring at night but also occurs during the day. He has been taking Requip 2 mg twice daily without much effect. Symptoms are very bothersome. He denies any weakness in the legs and denies any low back pain. He has never undergone EMG testing. [facility] Medical History (Updated 07/04/24 @ 13:50 by AVIS Jaimes) COPD (chronic obstructive pulmonary disease) Elevated brain natriuretic peptide (BNP) level Pneumonia Pneumonia COPD (chronic obstructive pulmonary disease) with emphysema Chronic atrial fibrillation HTN (hypertension) Bilateral carotid artery disease Hyperlipidemia History of cardiomyopathy COPD (chronic obstructive pulmonary disease) History of cardioversion Surgical History History of tonsillectomy and adenoidectomy Hx of colonoscopy Hx of cardiac cath Family History Father Stroke CVD (cardiovascular disease) Mother Colon cancer Diabetes Sister Diabetes COPD (chronic obstructive pulmonary disease) Breast cancer Social History Household Members: Spouse Housing: House Do you presently have visiting nurse or other home services: No Comment: pt refuses chair alarm, he has restless legs ans needs to stand often Patient Tobacco Use Status: Former Tobacco user Tobacco use type: Cigarette Second Hand Smoke Exposure: No Advance Directives Date on File: 06/11/21 service: No 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al status: retired 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 Cognitive needs: No Hearing needs: No Vision needs: Yes (rx glasses) Questionnaire Thrive Questionnaire Date Thrive assessed: 05/30/24 CONNOR-7 AMB Questionnaire CONNOR-7 Date CONNOR - 7 assessed: 05/30/24 Source: Developed by Drs. Yony Riley, Iliana Barriga, Torres Aguilar and colleagues, with an educational tio from [employer] Review of Systems Const All systems reviewed & are unremarkable except as noted in HPI and below Physical exam (Primary Care) Vital Signs: Last Vital Signs Temp 97.5 F 07/04/24 10:09 Pulse 78 07/04/24 10:09 BP 120/58 L 07/04/24 10:09 Pulse Ox 90 L 07/04/24 10:09 Oxygen Delivery Method Room Air 07/04/24 10:09 BMI result Body Mass Index 23.4 Tobacco/Smoking Status: Tobacco use Status Tobacco use date assessed 05/30/24 07/04/24 10:13 Patient Tobacco Use Status Former Tobacco user 07/04/24 10:13 Tobacco use type Cigarette 07/04/24 10:13 Thrive Assessment: Date of Thrive Assessment Date Thrive assessed 05/30/24 07/04/24 10:13 Const Other: Constitutional - Awake and Alert, No apparent distress Eyes - PERRL Cardiovascular - S1S2, RRR, 2+ ble edema Respiratory - Normal lung expansion, Normal respiratory effort, No respiratory distress, CTA bilaterally Extremities - no calf tenderness bilaterally, no swelling Skin - Warm/Dry Neurological - Alert & oriented x3, sensation in tact Psychological - Appropriate affect Coding Level of Care Code Est Pt Level 4 (93366) Complex EM visit Add On G2211 Diagnoses (HFpEF) heart failure with preserved ejection fraction I50.30 Hyperlipidemia E78.5 Chronic atrial fibrillation I48.20 COPD (chronic obstructive pulmonary disease) J44.9 Community acquired pneumonia of right lower lobe of lung J18.9 Laterality: right Lung location: lower lobe of lung Hospital discharge follow-up Z09 Assessment & Plan Assessment & Plan (1) (HFpEF) heart failure with preserved ejection fraction: Code(s): I50.30 - Unspecified diastolic (congestive) heart failure Category: Medical Plan: Clinically euvolemic. Continue Lasix 20 mg b.i.d. as prescribed. Follow-up wit h cardiology as scheduled. Continue with daily weights and fluid restrictions. (2) Hyperlipidemia: Code(s): E78.5 - Hyperlipidemia, unspecified Category: Medical Plan: Lipid panel ordered. Continue atorvastatin 20mg daily and follow low fat diet. (3) Chronic atrial fibrillation: Comment: failed maintenance of rhythm despite antiarrhythmic drug therapy and cardioversion. Maintained on rate control without obvious cardiac decompensation Code(s): I48.20 - Chronic atrial fibrillation, unspecified Category: Medical Plan: Chronic atrial fibrillation, rate controlled. Continue Eliquis for anticoagulation as well as diltiazem and metoprolol for rate control. Follow-up with cardiology as scheduled. (4) COPD (chronic obstructive pulmonary disease): Code(s): J44.9 - Chronic obstructive pulmonary disease, unspecified Category: Medical Plan: Recent exacerbation with hospital discharge 05/20. Hospital discharge summary reviewed. Completed course of steroids and antibiotics. Currently asymptomatic. Continue maintenance inhalers as well as albuterol only as needed for shortness of breath and wheezing. (5) Community acquired pneumonia: Code(s): J18.9 - Pneumonia, unspecified organism Category: Medical Qualifiers: Laterality: right Lung location: lower lobe of lung Qualified Code(s): J18.9 - Pneumonia, unspecified organism Plan: Recent hospitalization for community-acquired pneumonia with acute hypoxemic respiratory failure. No longer requiring supplemental O2. Completed course of cefuroxime and azithromycin. Chest x-ray ordered to ensure full resolution of pneumonia. (6) Hospital discharge follow-up: Code(s): Z09 - Encounter for follow-up examination after completed treatment for conditions other than malignant neoplasm Category: Medical Plan: Hospital discharge notes reviewed including discharge summary, chest x-ray and labs. Plan Follow-up in the office as scheduled. Chest x-ray to be performed. Lung cancer screening CT scan scheduled for early next month. Follow up with pulmonology as scheduled. Labs ordered to be completed after today's visit. Orders: Orders Basic Metabolic Panel Today I48.20 - Chronic atrial fibrillation, unspecified, I50.30 - Unspecified diastolic (congestive) heart failure, J18.9 - Pneumonia, unspecified organism TSH reflex Free T4 Today I48.20 - Chronic atrial fibrillation, unspecified, I50.30 - Unspecified diastolic (congestive) heart failure, J18.9 - Pneumonia, unspecified organism Lipid Panel Today E78.5 - Hyperlipidemia, unspecified XR chest 2V Today J18.9 - Pneumonia, unspecified organism Complete Blood Count Auto Diff Today I48.20 - Chronic atrial fibrillation, unspecified, I50.30 - Unspecified diastolic (congestive) heart failure, J18.9 - Pneumonia, unspecified organism Hemoglobin A1c Today I48.20 - Chronic atrial fibrillation, unspecified, I50.30 - Unspecified diastolic (congestive) heart failure, J18.9 - Pneumonia, unspecified organism
[2024-07-04 10:09] VITALS: BP 120/58; PULSE 78; TEMP 36.4; O2SAT 90; BMI 23.4
--- OUTSIDE RECORDS SUMMARY | 2024-07-04 10:52 | XMS_ITS ---
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) Active confirmed His pulmonary [...] Date Provider Diagnosis Yony Reynaga III, MD [address] [place] [address] [place] [address] 03/28/2024 Yony Reynaga Right upper lobe pulmonary [...] OV Provider Name:Yony Reynaga, 07/19/2024 10:30:00 AM, [address] [place] [address], [place] [address], [place], [address], Progress Notes * JUANPABLOFROYLAN LIZDOB: 2 (84 yo M)Acc No.[id number]:03/28/2024 Progress Notes Patient:?LIZ WASHINGTON Provider:?Yony Reynaga MD :1940???Age:84 Y???Sex:Male Con e:03/28/2024 Address:[address] [place], [place] [id number] Pcp:Vicente Cifuentes MD Subjective: * Chief Complaints: [...] healthy diet.? * Follow Up:?3 1/2 Months ([facility] son: OV) * Images: * Sign off status: Completed true * Provider:?Yony Reynaga MD Date:?06/2024 Generated for Nancy zapata/Kvng/Ramandeepitting on:?07/04/2024 10:52 AM EDT History and Physical Notes * [...]
--- OUTSIDE RECORDS SUMMARY | 2024-07-04 10:52 | XMS_ITS | Patient Health Record ---
[facility] Organization [facility] Address [address] [place] [address] Care Team Providers Care Sack Keeper Name Role Phone Vicente Cifuentes MD Primary Care Provider Leo Abreu Unavailable [phone] Allergies No Known Allergies Reason For Referral [...] 10/27/2023 Encounters Encounter Location Date Provider Diagnosis [address] [address] 09/21/2023 Leo Bella Other viral warts B07.8 ; Pain in left foot M79.672 ; Pain in right foot M79.671 ; Plantar fascial fibromatosis M72.2 ; Metatarsalgia, left foot M77.42 ; Metatarsalgia, right foot M77.41 ; Tinea unguium B35.1 and Ingrowing nail L60.[address] [address] 10/27/2023 Leo Bella Other viral warts B07.8 ; Pain in left foot M79.672 ; Pain in right foot M79.671 ; Plantar fascial fibromatosis M72.2 ; Metatarsalgia, left foot M77.42 ; Metatarsalgia, right foot M77.41 ; Tinea unguium B35.1 and Ingrowing nail L60.[address] [address] 09/21/2023 Leo Bella Assessments Encounter Date Diagnosis [...] Date [facility] [place] Medicare Advantage [facility] [address] [place] [address] [phone] [id number] Mac Marsh Self - patient is the insured Medical (General) History Medical History History ICD Code Angina asthma Back,Hip,and Knee pain Broken bones Cancer Cataracts Headaches/Migraines Hepatitis Lung disease Macular degeneration Tuberculosis Chicken pox Transfusions Surgical History Surgery Date(Month/Year) carpal tunnel surgery 10/14/22 cancer surgery 2009
--- OUTSIDE RECORDS SUMMARY | 2024-07-04 10:52 | XMS_ITS | Patient Health Record ---
Author Organization Yony Reynaga III, MD Address [address] [place] [address] [place] [address] Care Team Providers Care Packing Machine Feeder Name Role Phone Vicente Cifuentes MD Primary Care Provider Yony Tinsley [facility] [phone] Allergies Allergen (clinical drug ingredient) Drug/Non Drug Allergy documented on EMR Reaction Allergy Type Onset Date Status No Known Drug Allergy Unknown Drug Allergy Active Results Component Value Reference Range Notes PET CT fusion skull to thigh Reviewed date:03/28/2024 02:16:55 PM Interpretation: Performing Lab: Notes/Report: [address] [address] PET Report Signed Patient: Liz Washington MR#: [id number] : 1940 Acct:[id number] Age/Sex: 84 / M ADM Date: 03/20/24 Loc: HO.PET Attending Dr: Yony Reynaga MD Ordering Physician: Yony Reynaga MD Date of Service: 03/20/24 Procedure(s): PET CT fusion skull to thigh Accession Number(s): [id number] cc: Yony Reynaga MD; Vicente Cifuentes MD [...] in right upper lobe anterior segment scarring [employer] background. No metabolically active lymph nodes in [...] 03/22/24 0734 DD/ 1415 TD/TT: 03/20/24 1600 Type Proof Reproducer: [place] [address] PET Report Signed Patient: Raymond Washington MR#: [id number] : 1940 Acct:[id number] Age/Sex: 84 / M ADM Date: 03/20/24 Loc: HO.PET Attending Dr: Yony Reynaga MD Ordering Physician: Yony Reynaga MD Date of Service: 03/20/24 Procedure(s): PET CT fusion skull to thigh Accession Number(s): [id number] cc: Yony Reynaga MD; Vicente Cifuentes MD [...] in right upper lobe anterior segment scarring [employer] background. No metabolically active lymph nodes in [...] 03/22/24 0734 DD/ 1415 TD/TT: 03/20/24 1600 Type Proof Reproducer: LEONCIO Reason For Referral Reason Consult and [...] Problem Status W/U Status Risk Notes Problem 9669748 Former smoker (Z87.891) Active confirmed He is a former smoker. We made a plan to resist relapsing times stress or illness. Problem 794906185 Mixed hyperlipidemia (E78.2) Active confirmed No change was made in his medical regimen today. 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 He has significant obstructive disease which did not improve with bronchodilato rs. Problem 032989643 Anticoagulated (Z79.01) Active confirmed He has had no recent bleeding. He is to be anticoagulate d. Problem 664984597 Peripheral vascular disease (I73.9) Active confirmed He says he experiences claudication in one block. No lesions were seen on his feet. This issue will be managed by primary care. Problem 37915599 Restless leg syndrome (G25.81) Active confirmed Problem 417809508 Chronic GERD (K21.9) Active confirmed His reflux symptoms are controlled with medication. Problem 080259791 Chronic atrial fibrillation (I48.20) Active confirmed He is in an irregularly irregular rhythm today. Denies any recent chest pain. Problem 143551634 Right upper lobe pulmonary nodule (R91.1) Active confirmed The right upper lobe lesion is PET negative. He is being referred to pulmonary for treatment of his lung disease and to follow this nodule. I have ordered a repeat CT scan of the chest in 3 months. Problem 663023133 COPD, moderate (J44.9) Active confirmed He is a nonsmoker but has COPD. He was breathing comfortably with an oxygen saturation 97%. He was continuing current medications. 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) Active confirmed Vital Signs Heart Rate 85 /min 03/28/2024 Temperature 97.8 degrees Fahrenheit 03/28/2024 Oximetry 97 % 03/14/2024 Blood pressure diastolic 64 mm Hg 03/28/2024 Height 5'10 in 03/28/2024 Blood pressure systolic 121 mm Hg 03/28/2024 Weight 152 lbs 03/28/2024 BMI 21.81 kg/m2 03/28/2024 Encounters Encounter Location Date Provider Diagnosis Yony Reynaga III, MD [address] [place] [address] [place] [address] 03/14/2024 Yony Reynaga Right upper lobe pulmonary nodule R91.1 ; COPD, moderate J44.9 ; Chronic atrial fibrillation I48.20 ; Anticoagulated Z79.01 and Former smoker Z87.891 Yony Reynaga III, MD [address] [place] [address] [place] [address] 03/28/2024 Yony Reynaga Right upper lobe pulmonary nodule R91.1 ; COPD, moderate J44.9 ; Chronic atrial fibrillation I48.20 ; Anticoagulated Z79.01 ; Chronic GERD K21.9 ; Peripheral vascular disease I73.9 ; Mixed hyperlipidemia E78.2 ; Localized osteoarthritis of knees, bilateral M17.0 ; Former smoker Z87.891 and Panlobular emphysema J43.1 Yony Reynaga III, MD [address] [place] [address] [address] [place] [address] 06/20/2024 Yony Reynaga Encounter for preprocedural laboratory examination Z01.812 Assessments Encounter Date Diagnosis (ICD Code) Assessment [...] saturation 97%. He was continuing current medications. 06/20/2024 Encounter for preprocedural laboratory examination (ICD-10 - Z01.812) 03/14/2024 Chronic atrial fibrillation (ICD-10 - I48.20) [...] Treatment Pending Test Test Name Order Date BUN 06/20/2024 CT CHEST WITH CONTRAST 03/28/2024 PFT with DLCO 03/14/2024 Creatinine 06/20/2024 Next Appt Details Provider Name:Yony Reynaga, 07/19/2024 10:30:00 AM, [address] [place] [address] , [place] [address], [place], [address], Insurance Providers Payer Name Payer Address Payer Phone Subscriber Number Group Number Insured Name Patient Relationship to Insured Coverage Start Date Coverage End Date [facility] [address] [facility] [phone] [id number] LIZ WASHINGTON Self - patient is the insured MEDICARE NGS [address] [place] [phone] [id number] LIZ WASHINGTON Self - patient is the insured Medical (General) History Medical History History ICD Code Right upper lobe 1.3 cm spiculated nodul e COPD Atrial fibrillation Pripheral edema GERD Carotid dicease Peripheral artery dicease Restless leg syndrome Hyperlipidemia Arthritis of the knee Anticoagulated with apixaban Emphysema L
--- OUTSIDE RECORDS SUMMARY | 2024-07-04 10:52 | XMS_ITS ---
Author Organization Yony Reynaga III, MD Address [address] [place] [address] [place] [address] Care Team Providers Care Jumpbasting Collar Baster Name Role Phone Vicente Cifuentes MD Primary Care Provider Yony Tinsley Unavailable [phone] REASON FOR VISIT Labs for CT Chest with Contrast Social History Sex Assigned At : Social History Observation Description Sex Assigned At Male Encounters Encounter Location Date Provider Diagnosis Yony Reynaga III, MD [address] [place] [address] [place] [address] 06/20/2024 Yony Reynaga Encounter for preprocedural laboratory examination Z01.812 Assessments Encounter Date Diagnosis (ICD Code) Assessment Notes Treat ment Notes Treatment Clinical Notes 06/20/2024 Encounter for preprocedural laboratory examination (ICD-10 - Z01.812) Plan Of Treatment Pending Test Test Name Order Date BUN 06/20/2024 Creatinine 06/20/2024 Next Appt Details Provider Name:Yony Reynaga, 07/19/2024 10:30:00 AM, [address] [place] [address] [address], [place], [address], Progress Notes * JUANPABLOLIZ GALEANODOB: 2 (84 yo M)Acc No.[id number]:06/20/2024 Patient:?LIZ WASHINGTON :1940???Age:84 Y???Sex:Male Address:[address] [place] [address], [address] Subjective: * Chief Complaints: * ???Labs for CT Chest with Co ntrast * Medical History:? * Surgical History:? * Hospitalization/Major Diagno stic Procedure:? * Medications:? Objective: * Vitals:? * Physical Examination:? Assessment: * Assessment: 1.?Encounter for preprocedur al laboratory examination - Z01.812??? Plan: * Treatment: * Procedure Codes:? * true * Date:? Generated for Nancy zapata/Kvng/eTgosiasmitting on:?07/04/2024 10:52 AM EDT
--- OUTSIDE RECORDS SUMMARY | 2024-07-04 10:52 | XMS_ITS ---
Author Organization Yony Reynaga III, MD Address [address] [place] [address] [place] [address] Care Team Providers Care [employer] Physical Education Teacher Name Role Phone Vicente Cifuentes MD Primary Care Provider Yony Tinsley Unavailable [phone] Allergies Allergen (clinical drug ingredient) Drug/Non Drug [...] Problem Status W/U Status Risk Notes Problem 087062084 Right upper lobe pulmonary nodule (R91.1) Active confirmed The right upper lobe lesion is PET negative. He is being referred to pulmonary for treatment of his lung disease and to follow this nodule. I have ordered a repeat CT scan of the chest in 3 months. Problem 587432413 COPD, moderate (J44.9) Active confirmed He is a nonsmoker but has COPD. He was breathing comfortably with an oxygen saturation 97%. He was continuing current medications. Problem 767347264 Chronic atrial fibrillation (I48.20) Active confirmed He is in an irregularly irregular rhythm today. Denies any recent chest pain. Problem 711160035 Anticoagulated (Z79.01) Active confirmed He has had no recent bleeding. He is to be anticoagulate d. Problem 791668182 Chronic GERD (K21.9) Active confirmed His reflux symptoms are controlled with medication. Problem 870163204 Peripheral edema (R60.0) Active confirmed Problem 139076976 Peripheral vascular disease (I73.9) Active confirmed He says he experiences claudication in one block. No lesions were seen on his feet. This issue will be managed by primary care. Problem 300692434 Mixed hyperlipidemia (E78.2) Active confirmed No change was made in his medical regimen today. 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) Active confirmed Problem 1774387 Former smoker (Z87.891) Active confirmed He is [...] Date Provider Diagnosis Yony Reynaga III, MD [address] [place] [address] [address] [place], [place] [address] 03/14/2024 Yony Reynaga Right upper lobe pulmonary [...] at Provider Name:Yony Reynaga, 07/19/2024 10:30:00 AM, [address] [place] [address] [address] [place] [address], [place], [address], Progress Notes * LIZ WASHINGTONDOB: [birth year] (84 yo M)Acc No.[id number]:03/14/2024 Progress Notes Patient:?LIZ WASHINGTON Provider:?Yony Reynaga MD :1940???Age:84 Y???Sex:Male Con e:03/14/2024 Address:[address] [place], [place] [address] Pcp:Vicente Cifuentes MD Subjective: * Chief Complaints: [...] THIGHS ?Imaging: PFT with DLCO * Procedure Codes:?15114 MEASU RE BLOOD OXYGEN LEVEL * Preventive [...] Reynaga MD Date:?02/22 Generated for [place] zapata/Kvng/Ramandeepitting on:?07/04/2024 10:52 AM [...]
--- OUTSIDE RECORDS SUMMARY | 2024-07-04 10:52 | XMS_ITS | Clinical Summary ---
Author Organization [facility] Facility Address [address] [place] [address] Care Team Providers Care Immigration Specialist Name Role Phone Unavailable Primary Care Provider Unavailabl e Social History Tobacco Use Types Packs/Day Years Used Date Smoking Tobacco: Never Assessed Sex and Gender Information Value Date Recorded Sex Assigned at Not on file Legal Sex Male 4:56 PM EST Gender Identity Not on file Sexual Orientation Not on file Plan of Treatment Health Maintenance Due Date Last Done Comments Pneumococcal Vaccine: 50+ Ye ars (1 of - PCV) 02/07/1992 Influenza Vaccine (Season Ended) 2024 Hepatitis B Vaccine Aged Out No longe r eligible based on patient's age to complete this topic [place] [address]
--- OUTSIDE RECORDS SUMMARY | 2024-07-04 10:52 | XMS_ITS ---
Author Organization [facility] Address [address] [facility] [place] [address] Care Team Providers Care 1St [employer]man On Web Press Name Role Phone Vicente Cifuentes MD Primary Care Provider Leo Abreu Unavailable [phone] Allergies No Known Allergies REASON FOR VISIT [...] 10/27/2023 Encounters Encounter Location Date Provider Diagnosis [facility] [place] [address] [place] [address] 10/27/2023 Leo Bella Other viral warts B07.8 [...] pin-point bleeding margins with sterile surgical blade (24288), silver nitrate chemocautery applied Progress Notes * Mac WASHINGTON ADOB: [birth year] (83 yo M)Acc No.[id number]:10/27/2023 Progress Notes Patient:?Mac Washington Provider:?Leo Bella DPM :1940???Age:83 Y???Sex:Male Con e:10/27/2023 Address:[facility] [address], [id number] Pcp:Vicente Cifuentes MD Subjective: * Chief Complaints: [...] * Medical History:? * Surgical History:?carpal amina joes surgery 10/14/22cancer surgery 2009 * Hospitalization/Major Diagno [...] pin-point bleeding margins with sterile surgical blade (16641), silver nitrate chemocautery applied.? * Procedure Codes:?35946 Wart Destruction, 1-14, Modifiers: XS * Preventive [...] Bella DPM Date:? 024 Generated for [place] zapata/Kvng/eTransmitting on:?07/04/2024 10:52 AM EDT History and Physical [...] B/L, Neurological exam demonstrates pop plantar mtpj's anima and naima heels BABINSKI REFLEX: Absent, B/L [...]
--- OUTSIDE RECORDS SUMMARY | 2024-07-04 10:52 | XMS_ITS ---
Author Organization [facility] Address [address] [facility] [place] [address] Care Team Providers Care Raiser Helper Name Role Phone Vicente Cifuentes MD Primary Care Provider Leo Abreu Unavailable [phone] Allergies No Known Allergies REASON FOR VISIT [...] 09/21/2023 Encounters Encounter Location Date Provider Diagnosis [facility] [place] [address] [place] [address] 09/21/2023 Leo Bella Other viral warts B07.8 [...] pin-point bleeding margins with sterile surgical blade (95976), silver nitrate chemocautery applied, recomm. Wartstick 40 percent Salicylic acid application under occlusion as directed Progress Notes * Mac WASHINGTON ADOB: [birth year] (83 yo M)Acc No.[id number]:09/21/2023 Progress Notes Patient:?Mac Washington Provider:?Leo Bella DPM :1940???Age:83 Y???Sex:Male Con e:09/21/2023 Address:[address] [place] [address], [facility] [place], [facility] Pcp:Vicente Cifuentes MD Subjective: * Chief Complaints: [...] pin-point bleeding margins with sterile surgical blade (40944), silver nitrate chemocautery applied, recomm. Wartstick 40 percent Salicylic acid application under occlusion as directed.? * Procedure Codes:?36075 Wart Destruction, 1-14, Modifiers: XS 17273 X-RAY EXAM OF RIGHT FOOT 3V, Modifiers: 26 , [id number] X-RAY EXAM OF LEFT FOOT 3V, Modifiers: 26 , [id number] AFO PLASTIC/OTH MATERIAL PREFAB, Modifiers: RT * [...] Interfil injection therapy, as well as surgical [place]/Endoscopic Fasciitomy surgical procedures if needed. Recommendations were [...] DPM Date:? 024 Generated for [place] zapata/Kvng/Avery on:?07/04/2024 10:51 AM EDT History and Physical Notes * [...]
--- OUTSIDE RECORDS SUMMARY | 2024-07-04 10:52 | XMS_ITS ---
Author Organization [facility] Address [address] [place] [address] Care Team Providers Care Bone Char Kiln Operator Name Role Phone Vicente Cifuentes MD Primary Care Provider Leo Abreu [phone] REASON FOR VISIT dispense L1930 Encounters Encounter Location Date Provider Diagnosis [facility] [address] [place] [address] 09/21/2023 Leo Bella Plan Of Treatment No Information Progress Notes * Mac WASHINGTON ADOB: [birth year] (83 yo M)Acc No.[id number]:09/21/2023 Patient:?Mac Washington :1940???Age:83 Y???Sex:Male Address:[address] [place] [address] * true * Date:? Generated for Printi benny/Kvng/eTransmitting on:?07/04/2024 10:51 AM EDT
== END 2024-07-04 10:45 | disposition home or self-care (01) ==
LOC: HO.HMCHD 10:01
PROVIDERS: PCP Internal Medicine; Visit Provider Physician Assistant
DX: I50.30 Unspecified diastolic (congestive) heart failure (principal); E78.5 Hyperlipidemia, unspecified; I48.20 Chronic atrial fibrillation, unspecified; J44.9 Chronic obstructive pulmonary disease, unspecified; J18.9 Pneumonia, unspecified organism; Z09 Encounter for follow-up examination after completed treatment for conditions other than malignant neoplasm

== ENCOUNTER → 2024-07-04 11:00 | Outpatient (BNV) | payer MEDICARE, SELFPAY | PROVIDERS: PCP Internal Medicine; Visit Provider Radiology Diagnostic Radiology | DX: J43.9 Emphysema, unspecified (principal) | CPT/HCPCS: 71046 ==

== ENCOUNTER 2024-07-05 08:28 | Outpatient (REF) | payer MEDICARE, SELFPAY ==
--- OUTSIDE RECORDS SUMMARY | 2024-07-05 08:49 | XMS_ITS | Patient Health Record ---
Author Organization [facility] Address [address] [place] [address] Care Team Providers Care Kettle Operator Name Role Phone Vicente Cifuentes MD Primary Care Provider Leo Abreu Unavailable [phone] Allergies No Known Allergies Reason For Referral [...] 10/27/2023 Encounters Encounter Location Date Provider Diagnosis [address] [address] 09/21/2023 Leo Bella Other viral warts B07.8 ; Pain in left foot M79.672 ; Pain in right foot M79.671 ; Plantar fascial fibromatosis M72.2 ; Metatarsalgia, left foot M77.42 ; Metatarsalgia, right foot M77.41 ; Tinea unguium B35.1 and Ingrowing nail L60.[address] [address] 10/27/2023 Leo Bella Other viral warts B07.8 ; Pain in left foot M79.672 ; Pain in right foot M79.671 ; Plantar fascial fibromatosis M72.2 ; Metatarsalgia, left foot M77.42 ; Metatarsalgia, right foot M77.41 ; Tinea unguium B35.1 and Ingrowing nail L60.[address] [address] 09/21/2023 Leo Bella Assessments Encounter Date Diagnosis [...] [facility] [address] [place] [address] [id number] Mac Marsh Self - patient is the insured Medical (General) History Medical History History ICD Code Angina asthma Back,Hip,and Knee pain Broken bones Cancer Cataracts Headaches/Migraines Hepatitis Lung disease Macular degeneration Tuberculosis Chicken pox Transfusions Surgical History Surgery Date(Month/Year) carpal tunnel surgery 10/14/22 cancer surgery 2009
--- OUTSIDE RECORDS SUMMARY | 2024-07-05 08:49 | XMS_ITS ---
Author Organization Yony Reynaga III, MD Address [address] [place] [address] [place] [address] Care Team Providers Care Enterprise Records Analyst Name Role Phone Vicente Cifuentes MD Primary Care Provider Yony Tinsley Unavailable [phone] Allergies Allergen (clinical drug ingredient) Drug/Non Drug [...] Provider HILTON RUDD Referred Provider Specialty Pulmonary [facility] Notes Lois Aragon 03/30/2024 01:41:44 PM > [...] Problem Status W/U Status Risk Notes Problem 2951031 Panlobular emphysema (J43.1) Active confirmed His pulmonary [...] Date Provider Diagnosis Yony Reynaga III, MD [address] [place] [address] [place] [address] 03/28/2024 Yony Reynaga Right upper lobe pulmonary [...] OV Provider Name:Yony Reynaga, 07/19/2024 10:30:00 AM, [address] [place] [address], [place] [address], [place], [address], Progress Notes * JUANPABLOFROYLAN LIZDOB: 2 (84 yo M)Acc No.[id number]:03/28/2024 Progress Notes Patient:?LIZ WASHINGTON Provider:?Yony Reynaga MD :1940???Age:84 Y???Sex:Male Con e:03/28/2024 Address:[address] [place], [place] [address] Pcp:Vicente Cifuentes MD Subjective: * Chief Complaints: [...] healthy diet.? * Follow Up:?3 1/2 Months ([place] son: OV) * Images: * Sign off status: Completed true * Provider:?Yony Reynaga MD Date:?06/2024 Generated for [place] zapata/Kvng/Ramandeepitting on:?07/05/2024 08:49 AM EDT History and Physical Notes * [...]
--- OUTSIDE RECORDS SUMMARY | 2024-07-05 08:49 | XMS_ITS ---
Author Organization [facility] Address [address] [place] [address] Care Team Providers Care Systems Planner Name Role Phone Vicente Cifuentes MD Primary Care Provider Leo Abreu [phone] REASON FOR VISIT dispense L1930 Encounters Encounter Location Date Provider Diagnosis [facility] [address] [place] [address] 09/21/2023 Leo Bella Plan Of Treatment No Information Progress Notes * Mac WASHINGTON ADOB: [birth year] (83 yo M)Acc No.[id number]:09/21/2023 Patient:?Mac Washington :1940???Age:83 Y???Sex:Male Address:[address] [place] [address] * true * Date:? Generated for Printi benny/Fagianfranco/eTransmitting on:?07/05/2024 08:48 AM EDT
--- OUTSIDE RECORDS SUMMARY | 2024-07-05 08:49 | XMS_ITS | Patient Health Record ---
Author Organization Yony Reynaga III, MD Address [address] [place] [address] [place] [address] Care Team Providers Care Systems Analysis Manager Name Role Phone Vicente Cifuentes MD Primary Care Provider Yony Tinsley [facility] [phone] Allergies Allergen (clinical drug ingredient) Drug/Non Drug Allergy documented on EMR Reaction Allergy Type Onset Date Status No Known Drug Allergy Unknown Drug Allergy Active Results Component Value Reference Range Notes PET CT fusion skull to thigh Reviewed date:03/28/2024 02:16:55 PM Interpretation: Performing Lab: Notes/Report: [address] [address] PET Report Signed Patient: Liz Washington MR#: [id number] : 1940 Acct:[id number] Age/Sex: 84 / M ADM Date: 03/20/24 Loc: HO.PET Attending Dr: Yony Reynaga MD Ordering Physician: Yony Reynaga MD Date of Service: 03/20/24 Procedure(s): PET CT fusion skull to thigh Accession Number(s): [id number] cc: Yony Reynaga MD; Vicente Cifuentes MD [...] in right upper lobe anterior segment scarring DRIFTMAN background. No metabolically active lymph nodes in [...] 03/22/24 0734 DD/ 1415 TD/TT: 03/20/24 1600 Product Marketing Intern: [place] [address] PET Report Signed Patient: Raymond Washington MR#: [id number] : 1940 Acct:[id number] Age/Sex: 84 / M ADM Date: 03/20/24 Loc: HO.PET Attending Dr: Yony Reynaga MD Ordering Physician: Yony Reynaga MD Date of Service: 03/20/24 Procedure(s): PET CT fusion skull to thigh Accession Number(s): [id number] cc: Yony Reynaga MD; Vicente Cifuentes MD [...] in right upper lobe anterior segment scarring DRIFTMAN background. No metabolically active lymph nodes in [...] 03/22/24 0734 DD/ 1415 TD/TT: 03/20/24 1600 Product Marketing Intern: LEOCNIO Reason For Referral Reason Consult and Treat [...] Problem Status W/U Status Risk Notes Problem 6727986 Former smoker (Z87.891) Active confirmed He is a former smoker. We made a plan to resist relapsing times stress or illness. Problem 663704438 Mixed hyperlipidemia (E78.2) Active confirmed No change was made in his medical regimen today. Problem 3695617 Panlobular emphysema (J43.1) Active confirmed His pulmonary function test were interpreted as showing likely emphysema. He has significant obstructive disease which did not improve with bronchodilato rs. Problem 003957625 Anticoagulated (Z79.01) Active confirmed He has had no recent bleeding. He is to be anticoagulate d. Problem 413789494 Peripheral vascular disease (I73.9) Active confirmed He says he experiences claudication in one block. No lesions were seen on his feet. This issue will be managed by primary care. Problem 87573451 Restless leg syndrome (G25.81) Active confirmed Problem 887763738 Chronic GERD (K21.9) Active confirmed His reflux symptoms are controlled with medication. Problem 472578840 Chronic atrial fibrillation (I48.20) Active confirmed He is in an irregularly irregular rhythm today. Denies any recent chest pain. Problem 592783922 Right upper lobe pulmonary nodule (R91.1) Active confirmed The right upper lobe lesion is PET negative. He is being referred to pulmonary for treatment of his lung disease and to follow this nodule. I have ordered a repeat CT scan of the chest in 3 months. Problem 450146196 COPD, moderate (J44.9) Active confirmed He is a nonsmoker but has COPD. He was breathing comfortably with an oxygen saturation 97%. He was continuing current medications. 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) Active confirmed Vital Signs Heart Rate 85 /min 03/28/2024 Temperature 97.8 degrees Fahrenheit 03/28/2024 Oximetry 97 % 03/14/2024 Blood pressure diastolic 64 mm Hg 03/28/2024 Height 5'10 in 03/28/2024 Blood pressure systolic 121 mm Hg 03/28/2024 Weight 152 lbs 03/28/2024 BMI 21.81 kg/m2 03/28/2024 Encounters Encounter Location Date Provider Diagnosis Yony Reynaga III, MD [address] [place] [address] [place] [address] 03/14/2024 Yony Reynaga Right upper lobe pulmonary nodule R91.1 ; COPD, moderate J44.9 ; Chronic atrial fibrillation I48.20 ; Anticoagulated Z79.01 and Former smoker Z87.891 Yony Reynaga III, MD [address] [place] [address] [place] [address] 03/28/2024 Yony Reynaga Right upper lobe pulmonary nodule R91.1 ; COPD, moderate J44.9 ; Chronic atrial fibrillation I48.20 ; Anticoagulated Z79.01 ; Chronic GERD K21.9 ; Peripheral vascular disease I73.9 ; Mixed hyperlipidemia E78.2 ; Localized osteoarthritis of knees, bilateral M17.0 ; Former smoker Z87.891 and Panlobular emphysema J43.1 Yony Reynaga III, MD [address] [place] [address] [address] [place] [address] 06/20/2024 Yony Reynaga Encounter for preprocedural laboratory [...] Details Provider Name:Yony Reynaga, 07/19/2024 10:30:00 AM, [address] [place] [address] , [place] [address], [place], [address], Insurance Providers Payer Name Payer Address Payer Phone Subscriber Number Group Number Insured Name Patient Relationship to Insured Coverage Start Date Coverage End Date [facility] [address] [facility] [address] [facility] [phone] [id number] LIZ WASHINGTON Self - patient is the insured MEDICARE NGS [address] DAYSINILTONGirma CHANDNIPETER [phone] [id number] LIZ WASHINGTON Self - patient is the insured Medical (General) History Medical History History ICD Code Right upper lobe 1.3 cm spiculated nodul e COPD Atrial fibrillation Pripheral edema GERD Carotid dicease Peripheral artery dicease Restless leg syndrome Hyperlipidemia Arthritis of the knee Anticoagulated with apixaban Emphysema L
--- OUTSIDE RECORDS SUMMARY | 2024-07-05 08:49 | XMS_ITS ---
Author Organization [facility] Address [address] [facility] [place] [address] Care Team Providers Care Sales And Leasing Consultant Name Role Phone Vicente Cifuentes MD Primary Care Provider Leo Abreu Unavailable [phone] Allergies No Known Allergies REASON FOR VISIT [...] 09/21/2023 Encounters Encounter Location Date Provider Diagnosis [facility] [place] [address] [place] [address] 09/21/2023 Leo Bella Other viral warts B07.8 [...] pin-point bleeding margins with sterile surgical blade (10485), silver nitrate chemocautery applied, recomm. Wartstick 40 percent Salicylic acid application under occlusion as directed Progress Notes * Mac WASHINGTON ADOB: [birth year] (83 yo M)Acc No.[id number]:09/21/2023 Progress Notes Patient:?Mac Washington Provider:?Leo Bella DPM :1940???Age:83 Y???Sex:Male Con e:09/21/2023 Address:[address] [place] [address], [facility] [place], [facility] Pcp:Vicente Cifuentes MD Subjective: * Chief Complaints: [...] pin-point bleeding margins with sterile surgical blade (55915), silver nitrate chemocautery applied, recomm. Wartstick 40 percent Salicylic acid application under occlusion as directed.? * Procedure Codes:?71012 Wart Destruction, 1-14, Modifiers: XS 21164 X-RAY EXAM OF RIGHT FOOT 3V, Modifiers: 26 , IQ06255 X-RAY EXAM OF LEFT FOOT 3V, Modifiers: 26 , [id number] AFO PLASTIC/OTH MATERIAL PREFAB, Modifiers: RT * [...] Interfil injection therapy, as well as surgical [place]/Endoscopic Fasciitomy surgical procedures if needed. Recommendations were [...] DPM Date:? 024 Generated for [place] zapata/Kvng/Avery on:?07/05/2024 08:49 AM EDT History and Physical [...]
--- OUTSIDE RECORDS SUMMARY | 2024-07-05 08:50 | XMS_ITS | Clinical Summary ---
Author Organization [facility] Facility Address [address] [place] [address] Care Team Providers Care In Store Demonstrator Name Role Phone Unavailable Primary Care Provider [...] patient's age to complete this topic [place] [address]
--- OUTSIDE RECORDS SUMMARY | 2024-07-05 08:50 | XMS_ITS ---
Author Organization Yony Reynaga III, MD Address [address] [place] [address] [place] [address] Care Team Providers Care Switch Tender Name Role Phone Vicente Cifuentes MD Primary Care Provider Yony Tinsley Unavailable [phone] Allergies Allergen (clinical drug ingredient) Drug/Non Drug [...] Problem Status W/U Status Risk Notes Problem 591364957 Right upper lobe pulmonary nodule (R91.1) Active confirmed The right upper lobe lesion is PET negative. He is being referred to pulmonary for treatment of his lung disease and to follow this nodule. I have ordered a repeat CT scan of the chest in 3 months. Problem 502156107 COPD, moderate (J44.9) Active confirmed He is a nonsmoker but has COPD. He was breathing comfortably with an oxygen saturation 97%. He was continuing current medications. Problem 230555092 Chronic atrial fibrillation (I48.20) Active confirmed He is in an irregularly irregular rhythm today. Denies any recent chest pain. Problem 302966279 Anticoagulated (Z79.01) Active confirmed He has had no recent bleeding. He is to be anticoagulate d. Problem 272988039 Chronic GERD (K21.9) Active confirmed His reflux symptoms are controlled with medication. Problem 377944689 Peripheral edema (R60.0) Active confirmed Problem 463662471 Peripheral vascular disease (I73.9) Active confirmed He says he experiences claudication in one block. No lesions were seen on his feet. This issue will be managed by primary care. Problem 900124523 Mixed hyperlipidemia (E78.2) Active confirmed No change was made in his medical regimen today. 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) Active confirmed Problem 3261910 Former smoker (Z87.891) Active confirmed He is [...] Provider Diagnosis Yony Reynaga III, MD [address] [place] [address] [address] [address] 03/14/2024 Yony Reynaga Right upper lobe pulmonary [...] at Provider Name:Yony Reynaga, 07/19/2024 10:30:00 AM, [address] [place] [address] [address] [place] [address], [place], [address], Progress Notes * LIZ WASHINGTONDOB: [birth year] (84 yo M)Acc No.[id number]:03/14/2024 Progress Notes Patient:?LIZ WASHINGTON Provider:?Yony Reynaga MD :1940???Age:84 Y???Sex:Male Con e:03/14/2024 Address:[address] [place], [place] [address] Pcp:Vicente Cifuentes MD Subjective: * Chief Complaints: [...] THIGHS ?Imaging: PFT with DLCO * Procedure Codes:?30895 MEASU RE BLOOD OXYGEN LEVEL * Preventive [...] Reynaga MD Date:?02/22 Generated for [place] zapata/Kvng/Ramandeepitting on:?07/05/2024 08:49 AM [...]
--- OUTSIDE RECORDS SUMMARY | 2024-07-05 08:50 | XMS_ITS ---
Author Organization [facility] Address [address] [place] [address] Care Team Providers Care Reciprocating Drill Operator Name Role Phone Vicente Cifuentes MD Primary Care Provider Leo Abreu Unavailable [phone] Allergies No Known Allergies REASON FOR VISIT [...] 10/27/2023 Encounters Encounter Location Date Provider Diagnosis [facility] [place] [address] [place] [address] 10/27/2023 Leo Bella Other viral warts B07.8 [...] pin-point bleeding margins with sterile surgical blade (21164), silver nitrate chemocautery applied Progress Notes * Mac [place] ADOB: [birth year] (83 yo M)Acc No.[id number]:10/27/2023 Progress Notes Patient:?Mac [place] Provider:?Leo Bella DPM :1940???Age:83 Y???Sex:Male Con e:10/27/2023 Address:[facility] [address], [id number] Pcp:Vicente Cifuentes MD Subjective: * Chief Complaints: [...] pin-point bleeding margins with sterile surgical blade (48201), silver nitrate chemocautery applied.? * Procedure Codes:?99521 Wart Destruction, 1-14, Modifiers: XS * Preventive [...] DPM Date:? 024 Generated for Nancy zapata/Kvng/eTransmaydee on:?07/05/2024 08:49 AM EDT History and Physical [...]
--- OUTSIDE RECORDS SUMMARY | 2024-07-05 08:50 | XMS_ITS ---
Author Organization Yony Reynaga III, MD Address [address] [place] [address] [place] [address] Care Team Providers Care Artillery Meteorological Man Name Role Phone Vicente Cifuentes MD Primary Care Provider Yony Tinsley Unavailable [phone] REASON FOR VISIT Labs for CT Chest with Contrast Social History Sex Assigned At : Social History Observation Description Sex Assigned At Male Encounters Encounter Location Date Provider Diagnosis Yony Reynaga III, MD [address] [place] [address] [place] [address] 06/20/2024 Yony Reynaga Encounter for preprocedural laboratory examination Z01.812 Assessments Encounter Date Diagnosis (ICD Code) Assessment Notes Treat ment Notes Treatment Clinical Notes 06/20/2024 Encounter for preprocedural laboratory examination (ICD-10 - Z01.812) Plan Of Treatment Pending Test Test Name Order Date BUN 06/20/2024 Creatinine 06/20/2024 Next Appt Details Provider Name:Yony Reynaga, 07/19/2024 10:30:00 AM, [address] [place] [address] [address], [place], [address], Progress Notes * JUANPABLOLIZ GALEANODOB: 2 (84 yo M)Acc No.[id number]:06/20/2024 Patient:?LIZ [place] :1940???Age:84 Y???Sex:Male Address:[address] [place] [address], [id number] Subjective: * Chief Complaints: * ???Labs for CT Chest with Co ntrast * Medical History:? * Surgical History:? * Hospitalization/Major Diagno stic Procedure:? * Medications:? Objective: * Vitals:? * Physical Examination:? Assessment: * Assessment: 1.?Encounter for preprocedur al laboratory examination - Z01.812??? Plan: * Treatment: * Procedure Codes:? * true * Date:? Generated for Nancy zapata/Kvng/Avery on:?07/05/2024 08:49 AM EDT
[2024-07-05 08:54] LABS: MANUAL DIFF FLAG NO
[2024-07-05 09:27] LABS: Basophils Absolute Auto 0.1 X10*3/uL (0.0-0.2); Basophils Percent Auto 0.7 % (0-2); Eosinophils Absolute Auto 0.5 X10*3/uL (0.0-0.4); Hematocrit 43.3 % (42.0-52.0); Hemoglobin 14.1 g/dl (14.0-18.0); Imm Gran Abs Auto 0.06 X10*3/uL (0.00-0.03); Imm Gran Pct Auto 0.6 % (0.0-0.4); Lymphocytes Absolute Auto 1.6 X10*3/uL (1.2-4.9); Lymphocytes Percent Auto 15.1 % (20-40); Mean Corpuscular HGB Conc 32.6 g/dl (31.0-36.0); Mean Corpuscular Hemoglobin 29.9 pg (27.0-33.0); Mean Corpuscular Volume 91.7 fL (80.0-98.0); Mean Platelet Volume 9.5 fL (9.4-12.4); Monocytes Absolute Auto 0.9 X10*3/uL (0.1-1.2); Monocytes Percent Auto 8.3 % (2-11); Neutrophils Absolute Auto 7.4 x10*3/uL (2.0-8.3); Neutrophils Percent Auto 70.3 % (45-73); Platelet Count 283 X10*3/uL (160-400); Red Blood Count 4.72 X10*6/uL (4.60-5.80); Red Cell Distribution Width 13.5 % (11.0-16.0); White Blood Count 10.6 X10*3/uL (4.8-10.8)
[2024-07-05 09:29] LABS: Hematocrit 43.3 % (42.0-52.0); Mean Corpuscular HGB Conc 32.3 g/dl (31.0-36.0); Mean Corpuscular Hemoglobin 29.9 pg (27.0-33.0); Mean Corpuscular Volume 92.3 fL (80.0-98.0); Mean Platelet Volume 9.4 fL (9.4-12.4); Platelet Count 299 X10*3/uL (160-400); Red Blood Count 4.69 X10*6/uL (4.60-5.80); Red Cell Distribution Width 13.5 % (11.0-16.0); White Blood Count 10.3 X10*3/uL (4.8-10.8)
[2024-07-05 09:32] LABS: Estimated Average Glucose 123 mg/dL; Hemoglobin A1C 151.8363 umol/L; Hemoglobin A1c % 5.9 % (<6.0)
[2024-07-05 10:10] LABS: Anion Gap 12 (12-20); Blood Urea Nitrogen 23 mg/dL (9-16); Calcium 9.4 mg/dL (8.4-10.2); Carbon Dioxide 35 mmol/L (22-29); Chloride 95 mmol/L (96-108); Cholesterol 131 mg/dL (<200); Estimated Glomerular Filt Rate > 60; Glucose Random 114 mg/dL (60-115); HDL Cholesterol 43 mg/dL (>40); LDL Cholesterol Calculated 80 mg/dL (<100); Potassium 4.3 mmol/L (3.3-5.1); Sodium 138 mmol/L (135-145); Triglycerides 42 mg/dL (<150)
[2024-07-05 10:15] LABS: TSH reflex Free T4 2.06 uIU/mL (0.32-4.0)
== END 2024-07-05 08:29 | disposition home or self-care (01) ==
LOC: HO.LAB 08:28
PROVIDERS: Internal Medicine; PCP Physician Assistant; Visit Provider Physician Assistant
DX: J44.1 Chronic obstructive pulmonary disease with (acute) exacerbation (principal); E78.5 Hyperlipidemia, unspecified; I48.20 Chronic atrial fibrillation, unspecified; I50.30 Unspecified diastolic (congestive) heart failure; J18.9 Pneumonia, unspecified organism; Z99.81 Dependence on supplemental oxygen; R91.1 Solitary pulmonary nodule; Z13.1 Encounter for screening for diabetes mellitus
CPT/HCPCS: 36415; 80048; 80061; 83036; 84443; 85025; 85027; 94618; 99212

== ENCOUNTER 2024-07-05 13:57 | Outpatient (AMB) | payer MEDICARE, SELFPAY ==
[2024-07-05 13:59] VITALS: BP 110/58; PULSE 87; O2SAT 93; BMI 23.3
--- NOTE | 2024-07-05 13:59 | MHC.OFFVIS ---
Vital Signs 07/05/24 13:59 Height 5 ft 8 in Weight 153 lb BMI 23.3 BP 110/58 L Blood Pressure Location Lt brachial Position Sitting Pulse 87 Pulse Source Pulse Oximeter Pulse Oximetry (%) 93 Oxygen Delivery Method Room Air Intake Visit Reasons: pulm nodule Allergies No Known Allergies [NO KNOWN ALLERGIES] Allergy (Unknown, Verified 07/05/24 14:04) UNKNOWN HPI HPI pulm nodule: Details: 84-year-old gentleman, former 40 pack-year smoker, quit 30 years prior, now followed for COPD and pulmonary nodules. Patient has been using trilogy and albuterol MDI with reasonable control of his symptoms. His last PET-CT was negative. However, his oncologist wants to repeated in July of 2024. Patient does have home oxygen with [employer]. [facility] Medical History (Updated 07/05/24 @ 15:49 by Fantasma Yu MD) COPD (chronic obstructive pulmonary disease) Elevated brain natriuretic peptide (BNP) level Pneumonia Pneumonia COPD (chronic obstructive pulmonary disease) with emphysema Chronic atrial fibrillation HTN (hypertension) Bilateral carotid artery disease Hyperlipidemia History of cardiomyopathy COPD (chronic obstructive pulmonary disease) History of cardioversion Surgical History History of tonsillectomy and adenoidectomy Hx of colonoscopy Hx of cardiac cath Family History Father Stroke CVD (cardiovascular disease) Mother Colon cancer Diabetes Sister Diabetes COPD (chronic obstructive pulmonary disease) Breast cancer Social History Household Members: Spouse Housing: House Do you presently have visiting nurse or other home services: No Comment: pt refuses chair alarm, he has restless legs ans needs to stand often Patient Tobacco Use Status: Former Tobacco user Tobacco use type: Cigarette Second Hand Smoke Exposure: No Advance Directives Date on File: 06/11/21 service: No 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al status: retired 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 Cognitive needs: No Hearing needs: No Vision needs: Yes (rx glasses) Review of Systems Const Denies daytime sleepiness, Denies excessive sweating, Denies fatigue, Denies fever(s), Denies lethargy, Denies malaise, Denies night sweats, Denies snoring and Denies weight loss Eyes Denies blurry vision and Denies itchy eyes ENT Denies nasal congestion, Denies post nasal drip, Denies sinus pain, Denies sinus pressure and Denies other ( Thrush) Card Denies chest pain, Denies pedal edema, Reports dyspnea on exertion, Denies orthopnea and Denies paroxysmal nocturnal dyspnea Resp Denies cough, Denies hemoptysis, Denies excessive phlegm production, Reports dyspnea on exertion, Denies snoring and Denies wheezing GI Denies abdominal pain and Denies heartburn Musc Denies myalgias, Denies arthralgias and Denies joint swelling Skin/Breast Denies rash Neuro Denies memory loss and Denies seizure-like activity Psych Denies abnormal sleep pattern, Denies anxiety and Denies memory loss Endo Denies excessive sweating, Denies fatigue and Denies heat intolerance Maximiliano/Lymph Denies easy bruising Aller/Immun Denies itchy eyes, Denies seasonal rhinorrhea and Denies wheezing Physical Exam Vital Signs: Last Vital Signs Pulse 87 07/05/24 13:59 BP 110/58 L 07/05/24 13:59 Pulse Ox 93 07/05/24 13:59 Oxygen Delivery Method Room Air 07/05/24 13:59 BMI result Body Mass Index 23.3 Const General: no acute distress and alert Nutritional Appearance: not obese Orientation/consciousness: Other orientation findings ( oriented) HEENT Head: Yes atraumatic Eyes General: appearance normal, both eyes and all related structures Sclerae: sclerae normal EOM: EOMs intact bilaterally Neck Neck: Yes supple Lymphatic: no lymphadenopathy noted Resp Effort & Inspection: normal respiratory effort and no use of accessory muscles Auscultation: clear to auscultation bilaterally Cardio Rate: regular rate Rhythm: regular rhythm Heart sounds: no gallops, no murmurs and no rubs Skin General skin exam: other ( warm) Extrem General: No clubbing, No cyanosis and No edema Office Procedures 6 Minute Walk Time:: 14:30 SPO2 % at rest: 94 Pulse at rest: 79 SPO2 % during excercise: 87 Pulse during excercise: 112 SPO2 % after excercise: 92 Pulse after excercise: 98 Distance in yards walked: 150 Doyle Score: 7 Performance Observations:: Patient walked unassisted on level ground. After 1.5 minutes O2 saturation dropped to 87% with pulse of 112. O2 applied at 2L via nasal cannula with return of O2 sat to 94%. Patient completed walk maintaining O2 sat of 92-94% and pulse rate of 120. Patient would benefit from the use of O2 at 2L with exertion. 39825 - 6 Minute Walk Assessment & Plan Assessment & Plan (1) COPD (chronic obstructive pulmonary disease): Code(s): J44.9 - Chronic obstructive pulmonary disease, unspecified Category: Medical Plan: Well controlled on current regimen of Trelegy and albuterol MDI. Continue current regimen. (2) Supplemental oxygen dependent: Code(s): Z99.81 - Dependence on supplemental oxygen Category: Medical Plan: 6 minute walk test performed. Patient requires supplemental oxygen at on current 5 L to maintain normal oximetry with exertion. Portable oxygen concentrator order placed with [employer]. (3) Pulmonary nodule: Code(s): R91.1 - Solitary pulmonary nodule Category: Medical Plan: Negative on the last PET scan. Per patient, his oncologist wants to repeat PET scan in July of 2024. Orders: Orders AMB 6 minute walk Today J44.9 - Chronic obstructive pulmonary disease, unspecified Coding Level of Care Code Est Pt Level 4 (22536) Complex EM visit Add On G2211 Diagnoses COPD (chronic obstructive pulmonary disease) J44.9 Supplemental oxygen dependent Z99.81 Pulmonary nodule R91.1 CPT Codes Coding ([id number])
--- OUTSIDE RECORDS SUMMARY | 2024-07-05 14:38 | XMS_ITS | Clinical Summary ---
Author Organization [facility] Facility Address [address] [place] [id number] Care Team Providers Care Facility Security Officer Name Role Phone Unavailable Primary Care Provider [...] patient's age to complete this topic Insurance [place] [address]
[2024-07-05 14:47] VITALS: PULSE 79; O2SAT 94
== END 2024-07-05 14:52 | disposition home or self-care (01) ==
LOC: HO.HPS 13:57
PROVIDERS: PCP Internal Medicine; Visit Provider Internal Medicine Pulmonary Disease
DX: J44.9 Chronic obstructive pulmonary disease, unspecified (principal); Z99.81 Dependence on supplemental oxygen; R91.1 Solitary pulmonary nodule
CPT/HCPCS: 94618; 99214; G2211

== ENCOUNTER 2024-07-12 17:00 | Inpatient (IN) | payer MEDICARE, SELFPAY ==
[2024-07-12] VITALS (9 sets, daily range): BP systolic 122–162; BP diastolic 53–94; PULSE 103–120; RESP 18–30; TEMP 37.2–37.9; O2SAT 86–95; BMI 21.5
--- NOTE | ~2024-07-12 | CT_ITS ---
CLINICAL HISTORY: sudden left side weakness CT head without contrast Comparison: CT - CT HEAD/BRAIN WO IV CON - 02/18/24 17:50 EST Findings: Scattered subcortical and periventricular hypoattenuation, likely in keeping with chronic small vessel ischemic disease. Parenchymal volume loss with compensatory prominence of the ventricles and CSF spaces. No acute territorial infarction, intracranial hemorrhage, midline shift or hydrocephalus. Possible choroidal fissure cysts. Mucosal thickening throughout the paranasal sinuses. The orbits are unremarkable. There is no acute fracture. Bilateral lens extraction. IMPRESSION: 1. No acute intracranial abnormality. 2. Additional findings as described. This document has been electronically signed by: Cody Clinton MD on 07/12/2024 19:58:49
--- NOTE | ~2024-07-12 | CT_ITS ---
CLINICAL HISTORY: hypoxia, work of breathing CT chest without contrast Comparison: None Findings: Enlarged right more than left cardiac atria. Enlarged pulmonary trunk measuring up to 42 mm in width. Query pulmonary arterial hypertension. Mild nonhomogeneous right thyroid lobe. Small amount of fluid in the nondistended distal thoracic esophagus. Query GE reflux. Smoking-related lung changes and small bilateral calcified lung granulomas. Scattered bilateral lung atelectasis/scarring. Irregular up to 29 x 31 mm opacity in the right lower lobe (series 5, image 90). Smaller nodules in the lower lobes (including spiculated left lower lobe lung nodules, for example on series 5, images 35 and 49 measuring up to 12 mm). Small right and [id number] left pleural simple pleural effusions. Partially evaluated right renal cyst could be further characterized with nonemergent ultrasound if also clinically indicated Age-indeterminate (more likely nonacute and at least partially healed) nondisplaced fracture of the upper to middle 3rd junction of the sternal body cannot be excluded. Correlate clinically for focal tenderness. IMPRESSION: 1. Irregular up to 29 x 31 mm opacity in the right lower lobe. Smaller nodules in the lower lobes (including spiculated left lower lobe lung nodules measuring up to 12 mm). Findings may least partially be due to pneumonia +/-mucous plugging/bronchiolitis. Further evaluation with a [address] follow-up recommended. 2. [id number] bilateral pleural effusions. 3. Enlarged right more than left cardiac atria. Enlarged pulmonary trunk measuring up to 42 mm in width. Query pulmonary arterial hypertension. 4. Age-indeterminate (more likely nonacute and at least partially healed) nondisplaced fracture of the upper to middle 3rd junction of the sternal body cannot be excluded. Correlate clinically for focal tenderness. 5. Small amount of fluid in the nondistended distal thoracic esophagus. Query GE reflux. This document has been electronically signed by: Natalya Cabrera MD on 07/16/2024 10:24:30
--- NOTE | ~2024-07-12 | MR_ITS ---
EXAMINATION: MR BRAIN WITHOUT CONTRAST CLINICAL INFORMATION: Left-sided weakness, rule out stroke. COMPARISON: No prior MRI. Correlation made with CT head and CT angiogram head 07/12/2024. TECHNIQUE: MRI of the brain was obtained using routine sequences without contrast. FINDINGS: Examination is moderately motion degraded on multiple pulsing sequences. This limits the sensitivity of the study. There is no diffusion restriction. There is no intracranial hemorrhage, acute infarction, mass effect, or edema. Ventricles, sulci, and cisterns are normal in size and configuration for patient age. No shift of midline. No abnormal hemosiderin deposition is identified. There are moderate scattered punctate and minimally confluent foci of white matter T2 hyperintensity in the periventricular, subcortical, and hemispheric deep white matter. These foci are nonspecific but statistically most likely relate to small vessel ischemic changes. 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 Midline structures appear normally formed. The pituitary gland appears normal. Posterior fossa structures appear normal. Cerebellar tonsils are appropriately located. Major flow voids are preserved within the skull base. The globes and orbital contents demonstrate no abnormalities. There are bilateral lens replacements. Moderate dependent mucosal thickening left maxillary sinus. Paranasal sinuses are otherwise clear bilaterally. There is trace fluid in the left mastoid air cells. The mastoids and tympanic cavities are otherwise normally aerated. Extracranial soft tissues demonstrate no abnormalities. No suspicious bone marrow changes are evident. Atlantoaxial joint is normally aligned with moderate degenerative changes. MR/MR head/brain wo con IMPRESSION: 1. Motion degraded exam, limiting the sensitivity of the study. 2. There is no intracranial hemorrhage, acute infarction, mass effect, or edema. 3. There are moderate changes of small vessel ischemia. There are old lacunar type infarcts in the bilateral cerebellar hemispheres left greater than right. 4. Trace fluid in the left mastoid air cells. 5. Moderate dependent mucosal thickening left maxillary sinus. No air-fluid levels. Electronically signed by: Javid Baker MD 07/13/2024 01:34 PM EDT
--- NOTE | ~2024-07-12 | NM_ITS ---
EXAMINATION: NM LUNG PERFUSION HISTORY: continued sob. TECHNIQUE: A pulmonary perfusion scan was performed following the intravenous administration of 4.0 mCi technetium 99m-MAA. COMPARISON: Correlation is made with a chest CT dated 07/16/2024. FINDINGS: There is a nonsegmental perfusion defect involving the posterior aspect of the left lung, likely secondary to the pleural effusion noted on CT. There is diffuse patchy uptake of the radiopharmaceutical bilaterally as well as additional nonsegmental perfusion defects, likely related to emphysema and bronchiectasis. No segmental perfusion defects are identified. Findings are consistent with a low probability for pulmonary emboli. NM/NM pul perfusion IMPRESSION: Low probability for pulmonary emboli. Electronically signed by: Yony Jaimes MD 07/17/2024 10:09 AM EDT
--- NOTE | ~2024-07-12 | XR_ITS ---
CLINICAL HISTORY: hypoxia Single view of the chest. COMPARISON: XR chest dated 07/13/24 at 20:17 EDT XR chest dated 07/12/24 at 18:[address] chest dated 02/18/24 at 17:50 EST FINDINGS: Cardiomegaly, stable. Atherosclerotic thoracic aorta. Multifocal patchy reticular nodular opacities, mildly worsened along the medial left lung base. Blunting of the bilateral costophrenic angles. No pneumothorax. No acute fracture. IMPRESSION: 1. Multifocal bilateral pulmonary opacities have mildly worsened along the medial left lung base. Findings are suggestive of a multifocal infection, likely superimposed upon chronic interstitial changes. 2. Likely small bilateral pleural effusions. This document has been electronically signed by: Perfecto Skelton MD on 07/14/2024 14:29:09
--- NOTE | ~2024-07-12 | CT_ITS ---
CLINICAL HISTORY: left hemiparesis CT angiography head and neck with contrast. 3D Postprocessing. Comparison: None Findings: Calcified atheromatous plaques throughout the visualized aorta and branch vessels of the aortic arch. High-grade stenoses in the proximal left subclavian artery just distal to its origin and proximal to the 1st rib. High-grade stenoses of the origin of the bilateral vertebral arteries, hypoplastic. Calcified and noncalcified atheromatous plaques in the bilateral carotid bifurcations and proximal cervical segment ICAs, with moderate approximate 50% stenoses in the bilateral cervical segment ICAs. Visualized cervical arteries are patent. Mild stenoses in the bilateral cavernous and paraclinoid segments of the ICAs. Hypoplastic vertebral basilar system. Cerebral arteries are patent. No intracranial aneurysms. No abnormal intracranial enhancement. Heterogeneous thyroid gland with likely small hypodense nodules. No cervical mass or fluid collection. Lobulated mucosal thickening in the left maxillary sinus. Bullous emphysematous changes with biapical scarring. Atelectasis. Calcified granulomas in the lungs. Bronchiectasis. Ill-defined patchy/nodular consolidations pronounced in the superior left lower lobe measuring 1.4 cm. Additional more ill-defined smaller nodular/patchy consolidations scattered throughout in the lungs. Infectious/inflammatory or neoplastic etiologies are considered. Comparison with priors, clinical correlation and attention on follow-up advised. Prominent mediastinal and hilar nodes may be reactive, nonspecific. Dilated main pulmonary artery, suggesting pulmonary artery hypertension. Exaggeration of the cervical lordosis. Multilevel spondylosis with osteophytosis, uncovertebral hypertrophy, facet arthropathy and degenerative disc disease. Osteopenia with diffuse multilevel spondylosis. IMPRESSION: Patent head and neck CTA. If clinical concern persists consider follow-up MRI. Additional findings as described. This document has been electronically signed by: Cody Clinton MD on 07/12/2024 21:04:19
--- NOTE | ~2024-07-12 | US_ITS ---
EXAMINATION: US TRIPLEX LOWER EXTREMITY, BILATERAL CLINICAL INFORMATION: Hypoxia. COMPARISON: June 11, 2021. TECHNIQUE: Color-flow triplex imaging with spectral analysis and compression Doppler were performed on the bilateral lower extremities. FINDINGS: Respiratory variation, normal compression and augmented flow are present within the interrogated common femoral vein, superficial femoral vein, profunda femoral vein, popliteal vein and midcalf peroneal and posterior tibial venous segments.. There is no Yao's cyst. US/US venous duplex LE BI IMPRESSION: No acute deep venous thrombosis interrogated veins, bilateral lower extremities. Negative for DVT. Electronically signed by: Juventino Knight MD 07/17/2024 11:07 AM EDT
--- NOTE | ~2024-07-12 | XR_ITS ---
CLINICAL HISTORY: dypnea, fever 1 view chest x-ray Comparison: CR/SR - XR CHEST 2V - 07/04/24 11:27 EDT Findings: Similar calcified pleural plaques with bilateral calcified granulomatous disease and multifocal scarring. Possible developing small focal opacity in the right mid lung. No significant pleural effusion or pneumothorax. Similar prominent/enlarged cardiac silhouette. No acute fracture. IMPRESSION: Extensive chronic changes with possible superimposed small focal opacity in the right mid lung. Correlation for developing pneumonia advised. Attention on follow-up. This document has been electronically signed by: Cody Clinton MD on 07/12/2024 19:27:45
--- NOTE | ~2024-07-12 | XR_ITS ---
CLINICAL HISTORY: ?pulm edema, hypoxia 1 view chest x-ray Comparison: CR - XR CHEST 1V - 07/12/24 18:40 EDT Findings: Slight worsening of right mid lung airspace opacity with chronic bilateral nodularity and opacities. Mild pulmonary vascular congestion. No large effusion or pneumothorax. Cardiomediastinal silhouette is stable. Aortic atherosclerosis. No acute fracture. IMPRESSION: Slight worsening of right mid lung airspace opacity with chronic bilateral nodularity and opacities. Mild pulmonary vascular congestion. This document has been electronically signed by: Juanito Obregon MD on 07/13/2024 21:22:27
--- NOTE | 2024-07-12 17:02 | ED_ITS ---
HPI - General Adult General Chief complaint: Dyspnea Stated complaint: SOB/ DIFFICULTY BREATHING HX OF PNEUMONIA Time Seen by Provider: 07/12/24 17:34 Source: patient and family Mode of arrival: ambulatory Limitations: no limitations History of Present Illness ED Provider: DR. Townsend HPI narrative: Patient is an 84-year-old male with history of COPD, has PRN 2 L of supplemental O2 at home, HFpEF, afib on Eliquis, GERD, HLD presenting with worsening shortness of breath over the past few days. Fever, productive cough, patient with increased WOB in triage. O2 sat 85% on supplemental oxygen. Related Data Home Medications ?Medication ?Instructions ?Recorded ?Confirmed apixaban 5 mg tablet 5 mg PO BID 01/28/20 05/17/24 ropinirole 2 mg tablet 2 mg PO BID 08/04/21 05/17/24 diltiazem HCl 120 mg capsule,24 120 mg PO BEDTIME 02/01/22 05/17/24 hr,extended release furosemide 20 mg tablet 20 mg PO BID 02/01/23 05/17/24 fluticasone fur. 200 mcg-umeclid 1 ea inhalation DAILY 05/17/24 05/17/24 62.5 mcg-vilant 25 mcg inhalat.powder (Trelegy Ellipta) pantoprazole 40 mg tablet,delayed 40 mg PO DAILY@0630 05/17/24 05/17/24 release Previous Rx's ?Medication ?Instructions ?Recorded atorvastatin 20 mg tablet 20 mg PO DAILY #90 tabs 11/23/21 spironolactone 25 mg tablet 12.5 mg (1/2 x 25 mg) PO DAILY 90 01/03/24 days #45 tabs metoprolol succinate 100 mg 100 mg PO DAILY #90 tabs 03/26/24 tablet,extended release 24 hr diltiazem HCl 240 mg 240 mg PO DAILY #90 caps 05/30/24 capsule,extended release 24 hr gabapentin 100 mg capsule 100 mg PO TID #270 caps 07/09/24 Allergies Allergy/AdvReac Type Severity Reaction Status Date / Time No Known Allergies Allergy Unknown UNKNOWN Verified 07/12/24 17:05 [NO KNOWN ALLERGIES] Review of Systems 2 Review of Systems: all other systems are reviewed and are negative Constitutional: Reports as per HPI and Reports no additional constitutional complaints Eyes: Reports as per HPI and Reports no additional eye complaints Reports system reviewed and no additional complaints, except as documented Cardiovascular: Reports as per HPI and Reports no additional cardiovascular complaints Respiratory: Reports as per HPI and Reports no additional respiratory complaints Gastrointestinal: Reports as per HPI and Reports no additional gastrointestinal complaints Genitourinary: Reports no additional female genitourinary complaints Musculoskeletal: Reports no additional musculoskeletal complaints Skin/Breast: Reports system reviewed and no additional complaints, except as docu Psychiatric: Reports no additional psychiatric complaints Endocrine: Reports no additional endocrine complaints Hematologic/Lymphatic: Reports no additional hematologic/lymphatic complaints Allergic/Immunologic: Reports no additional allergic/immunologic complaints Reports system reviewed and no additional complaints, except as documented and Reports Abnormal speech present [facility] Past Medical History Medical History COPD (chronic obstructive pulmonary disease) Elevated brain natriuretic peptide (BNP) level Pneumonia Pneumonia COPD (chronic obstructive pulmonary disease) with emphysema Chronic atrial fibrillation HTN (hypertension) Bilateral carotid artery disease Hyperlipidemia History of cardiomyopathy COPD (chronic obstructive pulmonary disease) History of cardioversion Surgical History History of tonsillectomy and adenoidectomy Hx of colonoscopy Hx of cardiac cath Family History Family History Father Stroke CVD (cardiovascular disease) Mother Colon cancer Diabetes Sister Diabetes COPD (chronic obstructive pulmonary disease) Breast cancer Social History Social History Household Members: Spouse Housing: House Do you presently have visiting nurse or other home services: No Alcohol intake: former Comment: pt refuses chair alarm, he has restless legs ans needs to stand often Patient Tobacco Use Status: Former Tobacco user Tobacco use type: Cigarette Smoked in Last 30 Days: No Second Hand Smoke Exposure: No Advance Directives: No Advance Directives Information Provided: No Advance Directives Date on File: 06/11/21 Nutrition Risks: No Nutritional Risk service: No 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al status: retired 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 Cognitive needs: No Hearing needs: No Vision needs: Yes (rx glasses) Physical Exam ED Vital Signs: Vital Signs - 24 hr 07/12/24 17:03 07/12/24 17:22 07/12/24 17:34 Temperature 100.2 F Pulse Rate 114 H 119 H 120 H Respiratory Rate 24 H 26 H 30 H Blood Pressure 145/94 H Pulse Oximetry 86 L Oxygen Delivery Method Nasal Cannula Oxygen Flow Rate 07/12/24 17:47 07/12/24 17:58 07/12/24 19:08 Temperature 99.9 F 99 F Pulse Rate 107 H 115 H Respiratory Rate 24 H 21 H Blood Pressure 162/73 H 162/73 H 122/59 L Pulse Oximetry 95 92 Oxygen Delivery Method Oxymask Oxymask Oxygen Flow Rate 2 3 07/12/24 19:59 07/12/24 20:40 Temperature Pulse Rate 113 H 113 H Respiratory Rate 27 H 27 H Blood Pressure 145/71 H Pulse Oximetry 91 L Oxygen Delivery Method Oxymask Oxygen Flow Rate 3 BMI result Body Mass Index 21.5 Vital signs have been reviewed and appear to be correct. Blood pressure elevated. Heart rate normal. Respiratory rate normal. Temperature normal. Oxygen saturation normal. Appearance: Alert. Oriented X3. In acute respiratory distress. Head: Normal external exam. Normocephalic. Atraumatic. No Kraft signs noted. No raccoon eyes noted Eyes: PERRLA. EOMI. Conjunctiva and sclera normal. Eyelids normal. ENT: TM's Normal. Pharynx normal. Uvula midline. Moist mucous membranes. No trismus noted. No drooling noted. No muffled voice noted. Neck: Normal inspection. Neck supple. FROM. No adenopathy. Thyroid Normal. No meningeal signs. No neck mass noted. CVS: Normal heart rate and rhythm. Heart sound normal. No murmurs noted. Pulses normal throughout. Respiratory: Mild respiratory distress. Painless inspiration. Breath sounds diminished bilaterally, diffuse expiratory wheezing with prolonged expiration, bilateral rales up to 1/3 lung bases bilaterally, No accessory muscle usage noted or decreased air movement noted. Abdomen: Soft and nontender. Bowel sounds normal in all 4 quadrants. No distention noted. No organomegaly noted. No visible injury noted. Back: No CVA tenderness. Full range of motion noted. Skin: Skin warm and dry. Normal skin color. Normal skin turgor. No rashes/lesions/lacerations noted. Extremities: No lower extremity edema. Extremities exhibit normal range of motion. Extremities nontender. Neuro: Oriented X 3. Cranial nerve exam: II-XII are grossly intact No motor deficit. No sensory deficit. Reflexes normal. NIH Stroke Scale Time: 19:39 Level of Consciousness: Alert Level of Consciousness Questions: Answers both questions correctly Level of Consciousness Commands: Performs both tasks correctly Best Gaze: Normal Visual: No visual loss Facial Palsy: Normal Motor Arm (Right): No drift Motor Arm (Left): No effort against gravity Motor Leg (Right): No drift Motor Leg (Left): No effort against gravity Limb Ataxia: Absent Sensory: Mild to moderate sensory loss Best Language: No aphasia Dysarthia: Normal Extinction and Inattention: No abnormality Score: 7 Course Course Course Narrative: This is a rapid medical exam performed by Dhaval Peterson NP: Additional HPI, ROS, PE not included below will be deferred to primary provider. 84-year-old male came in for evaluation of few days of difficulty breathing. Plan: charge coordinator notified, EKG, CXR, labs, pt brought directly to room 4 Reevaluation(s) Reevaluation #1: left-sided hemiparesis while he is in the emergency department, patient with history of AFib heart rate now is 100-105 already on Eliquis, NIH score is 7 with left hemiparesis. Stroke protocol was activated immediately for further evaluation, patient is on Eliquis And he confirmed its administration today. Time: 19:48 Reevaluation #2: patient continued to improve, NIH score improved from 7 to 2, with good strength to his left Upper and lower extremity, patient is not a candidate for thrombolysis because patient's symptoms improvement and patient is already on anticoagulation, case discussed with Dr. Santos who agreed on the plan. COPD exacerbation, mild CHF, right lung pneumonia, sirs. Patient meet SIRS criteria, received ceftriaxone/doxycycline. Time: 21:13 Medications Administered Generic Name Dose Route Start Last Admin Trade Name Freq PRN Reason Stop Dose Admin Albuterol/Ipratropium 3 ml 07/12/24 20:00 07/12/24 20:40 Albuterol/Iprat 2.5/0.5mg 3 Ml Ampul.Neb INHALE 3 ml RQ4H WHILE AWAKE CARLOS Administration Discontinued Medications Generic Name Dose Route Start Last Admin Trade Name Freq PRN Reason Stop Dose Admin Ceftriaxone Sodium 1 gm 07/12/24 17:40 07/12/24 17:48 Ceftriaxone Sodium 1 Gm Vial IVPUSH 07/12/24 17:41 1 gm ONCE ONE Administration Albuterol Sulfate 5 mg/ 0 mg 07/12/24 17:19 07/12/24 17:21 Albuterol/Ipratropium 3 ml INHALE 07/12/24 17:20 1 each ONCE ONE Administration Furosemide 40 mg 07/12/24 17:40 07/12/24 17:47 Furosemide 40 Mg/4 Ml Vial IVPUSH 07/12/24 17:41 40 mg STAT STA Administration Protocol Magnesium Sulfate 2 gm in 50 mls @ 25 mls/hr 07/12/24 17:40 07/12/24 19:08 Magnesium Sulfate/H2o IV 07/12/24 19:39 Infused ONCE ONE Infusion Doxycycline Hyclate 100 mg/ 250 mls @ 166.67 mls/hr 07/12/24 18:56 07/12/24 20:38 Sodium Chloride IV 07/12/24 20:25 Infused ONCE ONE Infusion Iohexol 100 ml 07/12/24 20:01 07/12/24 20:01 Iohexol 350 Mg/Ml 100 Ml Infus..Btl IV 07/12/24 20:02 70 ml ONCE ONE Administration Methylprednisolone Sodium Succinate 125 mg 07/12/24 17:40 07/12/24 17:48 Methylprednisolone Sod Succ 125 Mg Vial IVPUSH 07/12/24 17:41 125 mg ONCE ONE Administration Medical Decision Making Differential Diagnosis Differential Diagnoses: The differential diagnosis associated with the presentation includes (Pneumonia, pneumothorax, pleural effusion, CHF, ACS, stroke, TIA, electrolyte derangement, severe anemia.) Admission/Observation Consideration of admission/observation: Escalation of care including admission/observation considered Consult Healthcare Provider Management of the patient was discussed with: Hospitalist ( Dr. Casanova) and Home School Liaison Officer ( Dr. Santos) Lab Data MDM Lab Attestation statement: I reviewed the patient's lab results. 07/12/24 17:21 07/12/24 17:54 Labs: Lab Results 07/12/24 07/12/24 07/12/24 Range/Units 17:21 17:22 17:26 WBC 12.1 H (4.8-10.8) X10*3/uL RBC 4.71 (4.60-5.80) X10*6/uL Hgb 14.1 (14.0-18.0) g/dl Hct 43.6 (42.0-52.0) % MCV 92.6 (80.0-98.0) fL MCH 29.9 (27.0-33.0) pg MCHC 32.3 (31.0-36.0) g/dl RDW 13.4 (11.0-16.0) % Plt Count 222 D (160-400) X10*3/uL MPV 9.0 L (9.4-12.4) fL Immature Gran % (Auto) 0.3 (0.0-0.4) % Neut % (Auto) 78.3 H (45-73) % Lymph % (Auto) 8.5 L (20-40) % [place] % (Auto) 11.9 H (2-11) % Eos % (Auto) 0.6 (0-4) % Baso % (Auto) 0.4 (0-2) % Lymph # (Auto) 1.0 L (1.2-4.9) X10*3/uL [place] # (Auto) 1.4 H (0.1-1.2) X10*3/uL Eos # (Auto) 0.1 (0.0-0.4) X10*3/uL Baso # (Auto) 0.1 (0.0-0.2) X10*3/uL Abs Immat Gran (auto) 0.04 H (0.00-0.03) X10*3/uL Absolute Neuts (auto) 9.4 H (2.0-8.3) x10*3/uL Absolute Nucleated RBC 0.000 (0.0-0.012) X10*3/uL Nucleated RBC % (auto) 0.0 (0.0-0.2) /100WBC Hold Purple Top PT 20.7 H D (10.9-12.4) SEC INR 1.8 H (0.9-1.1) VBG pH (7.32-7.43) VBG pCO2 mmHg VBG pO2 mmHg VBG HCO3 (22-26) mmol/L VBG O2 Saturation % VBG Base Excess mmol/L Sodium (135-145) mmol/L Potassium (3.3-5.1) mmol/L Chloride (96-108) mmol/L Carbon Dioxide (22-29) mmol/L Anion Gap (12-20) BUN (9-16) mg/dL Creatinine (0.5-1.4) mg/dL Estim Creat Clear Calc Estimated GFR Random Glucose (60-115) mg/dL Lactic Acid 2.1 H* (0.5-2.0) mmol/L Lactic Acid F/U @ 2Hr (0.5-2.0) mmol/L Calcium (8.4-10.2) mg/dL Total Bilirubin (0.0-1.0) mg/dL AST (5-37) U/L ALT (0-40) U/L Alkaline Phosphatase (39-117) U/L Troponin I High Sens < 2.7 (<3.5-35.0) ng/L B-Natriuretic Peptide 249 H (<100) pg/mL Total Protein (6.5-8.0) g/dL Albumin (3.5-5.0) g/dL Influenza Type A (PCR) NEGATIVE (Negative) Influenza Type B (PCR) NEGATIVE (Negative) RSV RNA Qual (PCR) NEGATIVE (Negative) SARS-CoV-2 RNA (RT-PCR) NEGATIVE (Negative) 07/12/24 07/12/24 07/12/24 Range/Units 17:30 17:54 20:04 WBC (4.8-10.8) X10*3/uL RBC (4.60-5.80) X10*6/uL Hgb (14.0-18.0) g/dl Hct (42.0-52.0) % MCV (80.0-98.0) fL MCH (27.0-33.0) pg MCHC (31.0-36.0) g/dl RDW (11.0-16.0) % Plt Count (160-400) X10*3/uL MPV (9.4-12.4) fL Immature Gran % (Auto) (0.0-0.4) % Neut % (Auto) (45-73) % Lymph % (Auto) (20-40) % [place] % (Auto) (2-11) % Eos % (Auto) (0-4) % Baso % (Auto) (0-2) % Lymph # (Auto) (1.2-4.9) X10*3/uL [place] # (Auto) (0.1-1.2) X10*3/uL Eos # (Auto) (0.0-0.4) X10*3/uL Baso # (Auto) (0.0-0.2) X10*3/uL Abs Immat Gran (auto) (0.00-0.03) X10*3/uL Absolute Neuts (auto) (2.0-8.3) x10*3/uL Absolute Nucleated RBC (0.0-0.012) X10*3/uL Nucleated RBC % (auto) (0.0-0.2) /100WBC Hold Purple Top SEE NOTE PT (10.9-12.4) SEC INR (0.9-1.1) VBG pH 7.37 (7.32-7.43) VBG pCO2 68 mmHg VBG pO2 38 mmHg VBG HCO3 40 H (22-26) mmol/L VBG O2 Saturation 55.0 % VBG Base Excess 11.7 mmol/L Sodium 137 (135-145) mmol/L Potassium 4.5 (3.3-5.1) mmol/L Chloride 95 L (96-108) mmol/L Carbon Dioxide 34 H (22-29) mmol/L Anion Gap 13 (12-20) BUN 22 H (9-16) mg/dL Creatinine 1.04 (0.5-1.4) mg/dL Estim Creat Clear Calc 52.7 Estimated GFR > 60 Random Glucose 120 H (60-115) mg/dL Lactic Acid (0.5-2.0) mmol/L Lactic Acid F/U @ 2Hr 0.7 (0.5-2.0) mmol/L Calcium 9.0 (8.4-10.2) mg/dL Total Bilirubin 0.5 (0.0-1.0) mg/dL AST 16 (5-37) U/L ALT < 6 (0-40) U/L Alkaline Phosphatase 125 H (39-117) U/L Troponin I High Sens (<3.5-35.0) ng/L B-Natriuretic Peptide (<100) pg/mL Total Protein 7.1 (6.5-8.0) g/dL Albumin 3.8 (3.5-5.0) g/dL Influenza Type A (PCR) (Negative) Influenza Type B (PCR) (Negative) RSV RNA Qual (PCR) (Negative) SARS-CoV-2 RNA (RT-PCR) (Negative) Independent Interpretation I performed an independent interpretation of an: Plain X-Ray ( chest:Extensive chronic changes with possible superimposed small focal opacity in the right mid lung. Correlation for developing pneumonia advised. Attention on follow-up.) and CT Scan ( CT head /CT angio of head and neck: Patent head and neck CTA, negative plain Head CT) Radiology Impression Discussion of test interpretation with radiology: I have reviewed the radiologist's reading. Critical Care Time Critical Care Time Critical Care Time: Yes Total Critical Care Time: 60 Attestation: The patient was critically ill with a high probability of imminent or life- threatening deterioration. I spent greater than 30 minutes of discontinuous time evaluating the patient, delivering critical care at the bedside, discussing evaluating data with consultants. Critical care time does not include time spent performing separately billable procedures or teaching. Time spent performing critical care was 60 minutes. Discharge Plan Discharge Clinical Impression: Pneumonia, SIRS (systemic inflammatory response syndrome), CHF (congestive heart failure), Acute CVA (cerebrovascular accident) Patient Disposition: Admitted As Inpatient Print Language: Sinhala
--- NOTE | 2024-07-12 17:06 | ECG_ITS ---
Test Reason : Dyspena Blood Pressure : */* mmHG Vent. Rate : 124 BPM Atrial Rate : * BPM P-R Int : * ms QRS Dur : 112 ms QT Int : 294 ms P-R-T Axes : * -83 82 degrees QTcB Int : 422 ms Atrial fibrillation with rapid ventricular response with premature ventricular or aberrantly conducted complexes Left axis deviation Incomplete right bundle branch block Anteroseptal infarct (cited on or before 09-Apr-2013) Abnormal ECG When compared with ECG of 17-May-2024 14:03, No significant change was found Referred By: Dannielle Peterson Electronically Signed By: Dajuan Sosa
[2024-07-12] MEDS: Albuterol Sulfate 5 MG, Albuterol/Iprat 2.5/0.5MG 3 ML 3 ML INHALE (17:21)
[2024-07-12 17:30] LABS: MANUAL DIFF FLAG NO
[2024-07-12 17:33] LABS: Venous Blood Gas Refer to POC result
[2024-07-12 17:33] LABS: VBG Base Excess 11.7 mmol/L; VBG HCO3 40 mmol/L (22-26); VBG pCO2 68 mmHg; VBG pH 7.37 (7.32-7.43); VBG pO2 38 mmHg
[2024-07-12 17:35] LABS: Basophils Absolute Auto 0.1 X10*3/uL (0.0-0.2); Basophils Percent Auto 0.4 % (0-2); Eosinophils Absolute Auto 0.1 X10*3/uL (0.0-0.4); Eosinophils Percent Auto 0.6 % (0-4); Hematocrit 43.6 % (42.0-52.0); Hemoglobin 14.1 g/dl (14.0-18.0); Imm Gran Abs Auto 0.04 X10*3/uL (0.00-0.03); Imm Gran Pct Auto 0.3 % (0.0-0.4); Lymphocytes Percent Auto 8.5 % (20-40); Mean Corpuscular HGB Conc 32.3 g/dl (31.0-36.0); Mean Corpuscular Hemoglobin 29.9 pg (27.0-33.0); Mean Corpuscular Volume 92.6 fL (80.0-98.0); Monocytes Absolute Auto 1.4 X10*3/uL (0.1-1.2); Monocytes Percent Auto 11.9 % (2-11); Neutrophils Absolute Auto 9.4 x10*3/uL (2.0-8.3); Neutrophils Percent Auto 78.3 % (45-73); Platelet Count 222 X10*3/uL (160-400); Red Blood Count 4.71 X10*6/uL (4.60-5.80); Red Cell Distribution Width 13.4 % (11.0-16.0); White Blood Count 12.1 X10*3/uL (4.8-10.8)
[2024-07-12] MEDS: Furosemide 40 MG/4 ML VIAL IVPUSH (17:47)
[2024-07-12] MEDS: cefTRIAXone sodium 1 GM VIAL IVPUSH (17:48)
[2024-07-12] MEDS: Magnesium Sulfate/H2O 2 GM/50 ML PIGGYBACK IV (17:48)
[2024-07-12 17:50] LABS: Lactic Acid 2.1 mmol/L (0.5-2.0)
[2024-07-12 17:54] LABS: B Type Natriuretic Peptide 249 pg/mL (<100)
[2024-07-12 17:59] LABS: Troponin-I High Sensitivity < 2.7 ng/L (<3.5-35.0)
[2024-07-12 18:04] LABS: INTERNATIONAL NORM RATIO 1.8 (0.9-1.1); Prothrombin Time 20.7 SEC (10.9-12.4)
[2024-07-12 18:09] LABS: Influenza A PCR NEGATIVE (Negative); Influenza B PCR NEGATIVE (Negative); Resp Syncy Virus RNA Qual PCR NEGATIVE (Negative); SARS COV2 PCR INHOUSE NEGATIVE (Negative)
[2024-07-12 18:18] LABS: Alanine Aminotransferase < 6 U/L (0-40); Albumin Level 3.8 g/dL (3.5-5.0); Alkaline Phosphatase 125 U/L (39-117); Anion Gap 13 (12-20); Aspartate Amino Transferase 16 U/L (5-37); Bilirubin Total 0.5 mg/dL (0.0-1.0); Blood Urea Nitrogen 22 mg/dL (9-16); Carbon Dioxide 34 mmol/L (22-29); Chloride 95 mmol/L (96-108); Creatinine Clr Calc Pharmacy 52.7; Estimated Glomerular Filt Rate > 60; Glucose Random 120 mg/dL (60-115); Potassium 4.5 mmol/L (3.3-5.1); Sodium 137 mmol/L (135-145); Total Protein 7.1 g/dL (6.5-8.0)
[2024-07-12] MEDS: Doxycycline Hyclate 100 MG in 0.9 % Sodium Chloride 250 ML 166.67 MG IV (19:06)
--- NOTE | 2024-07-12 19:19 | PC.NURSE ---
assumed care of patient at 1900. report received from Karlie MENDEZ. pt sitting up comfortably in recliner, says he uses a recliner at home and prefers it over the bed as he gets too short of breath laying flat. doxycycline started per apr. pt denies any acute complaints or distress, reports relief of breathing symptoms since arrival. wearing 3L via oxymask. given water as requested. vital signs updated, call spence within reach. plan of care continues.
[2024-07-12 19:28] LABS: Reflex Lactate? Lactic Acid Added
--- NOTE | 2024-07-12 19:37 | P.HPHOSP_ITS ---
History of Present Illness Date of Service: 07/12/24 Chief Complaint: dyspnea This is a 82-year-old male with pertinent history of chronic hypoxemic respiratory failure due to COPD on 2 L supplemental oxygen, chronic atrial fibrillation on anticoagulation, gastroesophageal reflux disease, mixed hyperlipidemia, congestive heart failure with preserved ejection fraction who presents to the emergency department for evaluation of dyspnea. Patient states his symptoms started 3 days prior to presentation. He has having shortness of breath which is worse with exertion. Also has associated purulent cough. Does have wheezing not relieve with home inhaler. Denies dyspnea or PND. Does have leg swelling but it is chronic as per the patient. No known fever, chills, chest pain, palpitations, abdominal pain, changes in urinary or bowel habits. In the emergency department, as per ER provider, patient had sudden onset of left-sided upper and lower extremity weakness. Stroke protocol was called and patient underwent CT head and CT angio head and neck. Neurology was consulted who requested admission with aspirin. Patient states his left-sided weakness has improved at the time of my evaluation. CT head without any acute abnormality and CT angio head and neck with patent CTA. Review of Systems 2 Constitutional: Constitutional: Reports fatigue, Reports malaise and Reports weakness Cardiovascular: Cardiovascular: Reports dyspnea on exertion Respiratory: Respiratory: Reports cough, Reports dyspnea on exertion and Reports wheezing Gastrointestinal: Gastrointestinal: Reports no additional gastrointestinal complaints Genitourinary: Genitourinary: Reports no additional male genitourinary complaints Neurologic: Reports weakness Endocrine: Endocrine: Reports fatigue Allergic/Immunologic: Allergic/Immunologic: Reports wheezing [facility] Medical History COPD (chronic obstructive pulmonary disease) Elevated brain natriuretic peptide (BNP) level Pneumonia Pneumonia COPD (chronic obstructive pulmonary disease) with emphysema Chronic atrial fibrillation HTN (hypertension) Bilateral carotid artery disease Hyperlipidemia History of cardiomyopathy COPD (chronic obstructive pulmonary disease) History of cardioversion Family History Father Stroke CVD (cardiovascular disease) Mother Colon cancer Diabetes Sister Diabetes COPD (chronic obstructive pulmonary disease) Breast cancer Surgical History History of tonsillectomy and adenoidectomy Hx of colonoscopy Hx of cardiac cath Social History Household Members: Spouse Housing: House Do you presently have visiting nurse or other home services: No Alcohol intake: former Comment: pt refuses chair alarm, he has restless legs ans needs to stand often Patient Tobacco Use Status: Former Tobacco user Tobacco use type: Cigarette Smoked in Last 30 Days: No Second Hand Smoke Exposure: No Advance Directives: No Advance Directives Information Provided: No Advance Directives Date on File: 06/11/21 Nutrition Risks: No Nutritional Risk service: No 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al status: retired 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 Cognitive needs: No Hearing needs: No Vision needs: Yes (rx glasses) Meds Allergies Allergy/AdvReac Type Severity Reaction Status Date / Time No Known Allergies Allergy Unknown UNKNOWN Verified 07/12/24 17:05 [NO KNOWN ALLERGIES] Active Medications: Current Medications Magnesium Sulfate (Magnesium Sulfate/H2o) 2 gm in 50 mls @ 25 mls/hr IV ONCE ONE Stop: 07/12/24 19:39 Last Infusion: 07/12/24 19:08 Dose: Infused Doxycycline Hyclate 100 mg/ (Sodium Chloride) 250 mls @ 166.67 mls/hr IV ONCE ONE Stop: 07/12/24 20:25 Last Admin: 07/12/24 19:06 Dose: 166.67 mls/hr Home Medications ?Medication ?Instructions ?Recorded ?Confirmed ?Last Taken ?Type apixaban 5 mg tablet 5 mg PO BID 01/28/20 05/17/24 10/14/22 History ropinirole 2 mg tablet 2 mg PO BID 08/04/21 05/17/24 Unknown History diltiazem HCl 120 mg capsule,24 120 mg PO BEDTIME 02/01/22 05/17/24 10/13/22 History hr,extended release furosemide 20 mg tablet 20 mg PO BID 02/01/23 05/17/24 Unknown History fluticasone fur. 200 mcg-umeclid 1 ea inhalation DAILY 05/17/24 05/17/24 Unknown History 62.5 mcg-vilant 25 mcg inhalat.powder (Trelegy Ellipta) pantoprazole 40 mg tablet,delayed 40 mg PO DAILY@0630 05/17/24 05/17/24 Unknown History release Physical Exam 2 Vital Signs and Narrative: Vital Signs: Last Vital Signs Temp 99 F 07/12/24 19:08 Pulse 115 H 07/12/24 19:08 Resp 21 H 07/12/24 19:08 BP 122/59 L 07/12/24 19:08 Pulse Ox 92 07/12/24 19:08 O2 Del Method Oxymask 07/12/24 19:08 O2 Flow Rate 3 07/12/24 19:08 Oxygen Flow Rate 2 07/12/24 17:03 BMI result Body Mass Index 21.5 Elderly male lying in bed in mild distress on supplemental oxygen Neck supple, no JVD Regular rate and rhythm, S1-S2 heard Bilateral wheezing appreciated Abdomen soft nontender, no guarding, no rigidity Patient is awake, alert and oriented x3, no pronator drift, left upper and lower extremity strength 5/5, right lower and upper extremity strength 5/5, tongue and uvula midline Psych: Normal mood Bilateral minimal pedal edema Results Labs 07/12/24 17:21 07/12/24 17:54 Labs: Laboratory Results - last 24 hr 07/12/24 07/12/24 07/12/24 17:21 17:22 17:26 MCV 92.6 MCH 29.9 MCHC 32.3 RDW 13.4 Plt Count 222 D MPV 9.0 L Immature Gran % (Auto) 0.3 Neut % (Auto) 78.3 H Lymph % (Auto) 8.5 L Nobles % (Auto) 11.9 H Eos % (Auto) 0.6 Baso % (Auto) 0.4 Lymph # (Auto) 1.0 L Nobles # (Auto) 1.4 H Eos # (Auto) 0.1 Baso # (Auto) 0.1 Abs Immat Gran (auto) 0.04 H Absolute Neuts (auto) 9.4 H Absolute Nucleated RBC 0.000 Nucleated RBC % (auto) 0.0 Hold Purple Top PT 20.7 H D INR 1.8 H VBG pH VBG pCO2 VBG pO2 VBG HCO3 VBG O2 Saturation VBG Base Excess Anion Gap Estim Creat Clear Calc Estimated GFR Random Glucose Lactic Acid 2.1 H* Calcium Total Bilirubin AST ALT Alkaline Phosphatase B-Natriuretic Peptide 249 H Total Protein Albumin Influenza Type A (PCR) NEGATIVE Influenza Type B (PCR) NEGATIVE RSV RNA Qual (PCR) NEGATIVE SARS-CoV-2 RNA (RT-PCR) NEGATIVE 07/12/24 07/12/24 17:30 17:54 MCV MCH MCHC RDW Plt Count MPV Immature Gran % (Auto) Neut % (Auto) Lymph % (Auto) Nobles % (Auto) Eos % (Auto) Baso % (Auto) Lymph # (Auto) Nobles # (Auto) Eos # (Auto) Baso # (Auto) Abs Immat Gran (auto) Absolute Neuts (auto) Absolute Nucleated RBC Nucleated RBC % (auto) Hold Purple Top SEE NOTE PT INR VBG pH 7.37 VBG pCO2 68 VBG pO2 38 VBG HCO3 40 H VBG O2 Saturation 55.0 VBG Base Excess 11.7 Anion Gap 13 Estim Creat Clear Calc 52.7 Estimated GFR > 60 Random Glucose 120 H Lactic Acid Calcium 9.0 Total Bilirubin 0.5 AST 16 ALT < 6 Alkaline Phosphatase 125 H B-Natriuretic Peptide Total Protein 7.1 Albumin 3.8 Influenza Type A (PCR) Influenza Type B (PCR) RSV RNA Qual (PCR) SARS-CoV-2 RNA (RT-PCR) Assessment and Plan (1) Pneumonia: Status: Acute (2) COPD exacerbation: Status: Acute (3) SIRS (systemic inflammatory response syndrome): Status: Acute (4) Left-sided weakness: Status: Acute Plan This is a 82-year-old male with pertinent history of chronic hypoxemic respiratory failure due to COPD on 2 L supplemental oxygen, chronic atrial fibrillation on anticoagulation, gastroesophageal reflux disease, mixed hyperlipidemia, congestive heart failure with preserved ejection fraction who presents to the emergency department for evaluation of dyspnea. #. Sepsis due to right-sided pneumonia leading to COPD exacerbation in a patient with chronic hypoxemic respiratory failure: Resuscitated with IV crystalloids. Lactic acid and blood culture obtained. Initiating empiric IV ceftriaxone and azithromycin for CAP. Scheduled and p.r.n. DuoNebs. Initiating systemic steroids. Patient is on baseline home O2: 2 L #. Transient left-sided weakness: TIA versus CVA. Obtaining MRI. Consulted Neurology, appreciate assistance. Initiated aspirin and increasing statin to high intensity dosage. Obtaining lipid panel, A1c and echo #. Acute lactic acidosis due to sepsis #. Chronic atrial fibrillation: Rate controlled in the ER. On diltiazem and Eliquis #. Gastroesophageal reflux disease: On PPI #. Congestive heart failure with preserved EF: No decompensation during admission. Continue home diuretics Med rec pending DVT prophylaxis: Eliquis DNR/DNI. Discussed with patient at bedside Admit as inpatient and will require two night minimum hospital stay for IV antibiotics, monitoring of respiratory status, evaluation of left-sided weakness (as above), which is not possible in a lesser acute setting. Specialist consult pending Quality Stroke Does the patient have a stroke diagnosis?: No VTE Prior VTE?: No VTE Risk Level:: Medical - moderate - high VTE Device Contraindication: Treatment Not Indicated VTE Drug Contraindication: N/A - Med Ordered
--- NOTE | 2024-07-12 19:43 | PC.NURSE ---
tech went in room to draw lactic acid at 1930 and pt noted to be c/o of left arm weakness, inability to lift left arm. 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 Elmogsmith to bedside. intitiating stroke protocol at this time, pt in CT scan now. Pt on eliquis and not a candidate for TNK per .
--- NOTE | 2024-07-12 20:00 | PC.NURSE ---
pt back from CT scan at this time. digital recruiter strength to left hand improving however still unable to lift left arm/leg. pt denies any other symptoms - no LOVING/dizziness/blurred vision etc. on media monitor. plan of care continues.
[2024-07-12] MEDS: iohexoL 350 MG/ML 100 ML INFUS..BTL IV (20:01)
--- NOTE | 2024-07-12 20:24 | PC.NURSE ---
pt feels very warm to touch, oral temp 99, however pt refusing to let this RN and tech do a rectal temp.
[2024-07-12 20:26] LABS: ~Lactic Acid-LAB USE ONLY 0.7 mmol/L (0.5-2.0)
[2024-07-12] MEDS: Albuterol/Iprat 2.5/0.5MG 3 ML AMPUL.NEB INHALE (20:40)
--- NOTE | 2024-07-12 21:34 | PC.NURSE ---
per MD oTwnsend waiting to hear back from Dr. Santos to determine if patient will need further care or can be admitted to med/tele floor.
[2024-07-12] MEDS: Aspirin Enteric Coated 81 MG TABLET.DR PO (22:07)
[2024-07-13] VITALS (12 sets, daily range): BP systolic 107–154; BP diastolic 55–72; PULSE 65–133; RESP 18–30; TEMP 36.3–37.6; O2SAT 84–97; BMI 21.5
[2024-07-13] MEDS: Lactated Ringers 500 ML IV (00:30)
[2024-07-13] MEDS: guaiFEN/Codeine SF 200/20/10ML 10 ML LIQUID 5 ML PO ×2 (01:06→07:54)
--- NOTE | 2024-07-13 03:34 | PC.NURSE ---
pt moved back into recliner as requested.
[2024-07-13 05:04] LABS: Basophils Percent Auto 0.2 % (0-2); Hematocrit 40.6 % (42.0-52.0); Hemoglobin 13.4 g/dl (14.0-18.0); Imm Gran Abs Auto 0.03 X10*3/uL (0.00-0.03); Imm Gran Pct Auto 0.5 % (0.0-0.4); Lymphocytes Absolute Auto 0.2 X10*3/uL (1.2-4.9); Lymphocytes Percent Auto 4.2 % (20-40); MANUAL DIFF FLAG SCAN; Mean Corpuscular Hemoglobin 30.2 pg (27.0-33.0); Mean Corpuscular Volume 91.6 fL (80.0-98.0); Mean Platelet Volume 9.2 fL (9.4-12.4); Monocytes Absolute Auto 0.1 X10*3/uL (0.1-1.2); Monocytes Percent Auto 1.9 % (2-11); Neutrophils Absolute Auto 5.3 x10*3/uL (2.0-8.3); Neutrophils Percent Auto 93.2 % (45-73); Platelet Count 173 X10*3/uL (160-400); Red Blood Count 4.43 X10*6/uL (4.60-5.80); Red Cell Distribution Width 13.3 % (11.0-16.0); SCAN SMEAR FLAG 1; White Blood Count 5.7 X10*3/uL (4.8-10.8)
[2024-07-13 05:16] LABS: Estimated Average Glucose 123 mg/dL; Hemoglobin A1C 141.8355 umol/L; Hemoglobin A1c % 5.9 % (<6.0); Total Hemoglobin (HGBA1C) 3471.5112 umol/L
[2024-07-13 05:17] LABS: Anion Gap 15 (12-20); Blood Urea Nitrogen 25 mg/dL (9-16); Calcium 8.6 mg/dL (8.4-10.2); Carbon Dioxide 33 mmol/L (22-29); Chloride 93 mmol/L (96-108); Cholesterol 115 mg/dL (<200); Creatinine Clr Calc Pharmacy 48.9; Estimated Glomerular Filt Rate > 60; Glucose Random 149 mg/dL (60-115); HDL Cholesterol 38 mg/dL (>40); LDL Cholesterol Calculated 70 mg/dL (<100); Potassium 4.5 mmol/L (3.3-5.1); Sodium 136 mmol/L (135-145); Triglycerides 38 mg/dL (<150)
[2024-07-13 05:22] LABS: SLIDE REVIEW VERIFIED
--- NOTE | 2024-07-13 07:00 | CA_ITS ---
Transthoracic Echocardiogram Patient (Last, First, Middle): Mac Marsh A Gender: Male Date of : 1940 Age: 84 Procedure Date: 07/13/2024 Procedure Type: Transthoracic Echocardiogram Location: ER Height: 177.8 cm Weight: 68.04 kg BSA: 1.85 m2 Heart Rate: bpm BP: 123 / 69 mmHg Money Market Dealer: Referring MD: Chriss Casanova MD Symptoms: cva Study Quality: Fair ECG Rhythm: Atrial Fibrillation Conclusions: - Normal left ventricular cavity size. There is normal left ventricular wall thickness. The left ventricular systolic function is hyperdynamic. The visually estimated ejection fraction is >70%. - Severely increased right ventricular cavity size. There is normal right ventricular systolic function. - The right atrium is severely dilated. Findings Left Ventricle Normal left ventricular cavity size. There is normal left ventricular wall thickness. The left ventricular systolic function is hyperdynamic. The visually estimated ejection fraction is >70%. There is no evidence of regional wall motion abnormalities. Diastolic function is normal for age. Right Ventricle Severely increased right ventricular cavity size. There is normal right ventricular systolic function. Atria The left atrium is normal in size. The right atrium is severely dilated. Aortic Valve There is a normal trileaflet aortic valve. There is mild calcification of the aortic valve. There is no aortic valve stenosis. There is no aortic valve regurgitation. Mitral Valve The mitral valve appears normal. There is no mitral valve regurgitation. There is no mitral valve stenosis. Pulmonic Valve The pulmonic valve was not well visualized. Tricuspid Valve Normal tricuspid valve structure. There is trace tricuspid valve regurgitation. Normal right atrial pressure. There is no evidence of pulmonary hypertension. Great Vessels All visible segments of the aorta are normal in size. Venous The inferior vena cava is normal in size and collapses greater than 50% with inspiration. Pericardium/Pleural There is no evidence of pericardial effusion. Prior Study Comparison Changes noted compared to prior study dated: 02/18/2023. Severe RV dilation Measurements 2D Linear Measurements IVSd: 1.06 0.6-0.9/0.6-1.0 cm LVIDd: 3.88 3.9-5.3/4.2-5.9 cm LVIDd Index: 2.10 2.4-3.2/2.2-3.1 cm/m2 LVIDs: 2.35 2.0-3.6 cm LVPWd: 1.10 0.7-1.1 cm LA Diam: 4.60 2.7-3.8/3.0-4.0 cm LAIDs Index: 2.49 1.5-2.3 cm/m2 LV Mass: 168.42 67-162/88-224 g LV Mass Index: 91.04 43-95/49-115 g/m2 LVOT Diam: 2.00 3.0+(-)1.3 cm Mitral Valve MV Pk E: 0.72 MV Decel Time: 219.00 E'Lateral: 10.90 E'Medial: 8.59 E/E' Med: 8.40 E/E' Lat: 6.60 PHT: 64.00 MVA PHT: 3.44 Decel [place]: 3.28 Aortic Valve AoV Pk Jamel: 1.14 AoV Mn Jamel: 0.75 AoV VTI: 0.27 AoV Pk Grad: 5.00 Aov Mn Grad: 3.00 NORMA Cont.VTI: 2.19 LVOT LVOT Pk Jamel: 0.80 LVOT Mn Jamel: 0.59 LVOT VTI: 0.19 LVOT Pk Grad: 3.00 LVOT Mn Grad: 2.00 LVOT Diam: 2.00 LVOT Area: 3.14 Diastolic Function MV Pk E: 0.72 E'Medial: 8.59 E/E' Med: 8.40 E' Laterial: 10.90 E/E' Lat: 6.60 Tricuspid Valve TR Pk Jamel: 2.80 TR Pk Grad: 31.00 RA Press: 3.00 RVSP: 34.00 Great Vessels Aorta Sinus of Valsalva: 3.30 2.0-3.5 cm Pulmonary Valve PV Pk Jamel: 0.95 Peak PV Grad: 4.00 Updated in Other Vendor System with Status of Final Dajuan Sosa MD electronically signed on 07/13/2024 9:48:51 PM with status of Final
[2024-07-13] MEDS: Aspirin 81 MG TAB.CHEW PO (07:49)
[2024-07-13] MEDS: Metoprolol Succinate ER 100 MG TAB.ER.24H PO (07:49)
[2024-07-13] MEDS: Atorvastatin Calcium 40 MG TABLET PO (07:49)
[2024-07-13] MEDS: methylPREDNISolone Sod Succ 40 MG/ML VIAL IVPUSH ×2 (07:54→20:08)
[2024-07-13] MEDS: 0.9 % Sodium Chloride Flush 3 ML SYRINGE IVFLUSH ×3 (07:55→21:02)
--- NOTE | 2024-07-13 08:14 | PHA.MEDREC ---
Addendum entered by Leonila Tolbert RPh 07/13/24 08:27: Med rec was reviewed by [facility]. Original Note: Pharmacy Consult ? Medication Reconciliation Pharmacy has completed the medication reconciliation. Spoke with pt and he was a poor historian. Called pt (Ree) and she was able to confirm pts medications. Pt confirmed pt just started taking the Gabapentin 100mg caps 1 TID in the last week. Pt nor could confirm what medications pt took yesterday, but confirmed he took some of them yesterday.
[2024-07-13] MEDS: Apixaban 5 MG TABLET PO ×2 (11:07→21:02)
[2024-07-13] MEDS: Gabapentin 100 MG CAPSULE PO ×2 (11:07→16:47)
[2024-07-13] MEDS: Furosemide 20 MG TABLET PO (11:07)
--- NOTE | 2024-07-13 11:12 | HO.PM.IMPN ---
Subjective Subjective Date of Service: 07/13/24 Interval History: seen and examined this morning follow up for COPD exacerbation, pneumonia pt noted to be in afib rvr, denies palpitations reports sob, cough Review of Systems Review of Systems: Yes all other systems are reviewed and are negative Constitutional Constitutional: Denies chills and Denies fever(s) Cardiovascular Cardiovascular: Denies chest pain, Denies palpitations and Reports dyspnea Respiratory Respiratory: Reports cough and Reports dyspnea Gastrointestinal Gastrointestinal: Denies abdominal pain Endocrine Endocrine: Denies palpitations Physical Exam Vital Signs: Vital Signs: Last Vital Signs Temp 97.6 F 07/13/24 05:41 Pulse 133 H 07/13/24 07:49 Resp 30 H 07/13/24 05:41 BP 107/55 L 07/13/24 07:49 Pulse Ox 90 L 07/13/24 05:41 O2 Del Method Nasal Cannula 07/13/24 05:41 O2 Flow Rate 2 07/13/24 05:41 Oxygen Flow Rate 2 07/12/24 17:03 BMI result Body Mass Index 21.5 Const: Other: frail elderly male, appears tachypnic General: alert and awake Nutritional Appearance: average body habitus Orientation/consciousness: patient oriented x3 Resp: Other: diminished scattered wheeze Effort & Inspection: able to speak in complete sentences and prolonged expiratory phase Cardio: Rate: tachycardic GI: Inspection: No distended Palpation (GI): Soft to palpation Neuro: General: patient oriented x3 and moves all extremities Objective Data Active Medications Acetaminophen (Acetaminophen 325 Mg Tablet) 650 mg PO Q6H PRN PRN Reason: Pain, Mild 1-3,fever,headache Albuterol/Ipratropium (Albuterol/Iprat 2.5/0.5mg 3 Ml Ampul.Neb) 3 ml INHALE Q4H PRN PRN Reason: Shortness of Breath/Wheezing Albuterol/Ipratropium (Albuterol/Iprat 2.5/0.5mg 3 Ml Ampul.Neb) 3 ml INHALE RQ4H WHILE AWAKE [facility] Last Admin: 07/13/24 07:39 Dose: Not Given Documented By: HÉCTOR Non-Admin Reason: Patient Refused Apixaban (Apixaban 5 Mg Tablet) 5 mg PO BID [facility] Last Admin: 07/13/24 11:07 Dose: 5 mg Documented By: ROSIBEL Aspirin (Aspirin 81 Mg Tab.Chew) 81 mg PO DAILY [facility] Last Admin: 07/13/24 07:49 Dose: 81 mg Documented By: ROSIBEL Atorvastatin Calcium (Atorvastatin Calcium 40 Mg Tablet) 40 mg PO DAILY [facility] Last Admin: 07/13/24 07:49 Dose: 40 mg Documented By: ROSIBEL Benzonatate (Benzonatate 100 Mg Capsule) 100 mg PO TID PRN PRN Reason: Cough Calcium Carbonate (Calcium Carbonate 750 Mg Tab.Chew) 750 mg PO Q4H PRN PRN Reason: Heartburn Ceftriaxone Sodium (Ceftriaxone Sodium 1 Gm Vial) 1 gm IVPUSH Q24H [facility] Diltiazem HCl (Diltiazem Hcl Cd 240 Mg Cap.Er.Deg) 240 mg PO DAILY [facility]; Protocol Diltiazem HCl (Diltiazem Hcl Cd 120 Mg Cap.Er.Deg) 120 mg PO BEDTIME [facility]; Protocol Furosemide (Furosemide 20 Mg Tablet) 20 mg PO BID [facility]; Protocol Last Admin: 07/13/24 11:07 Dose: 20 mg Documented By: ROSIBEL Gabapentin (Gabapentin 100 Mg Capsule) 100 mg PO TID [facility] Last Admin: 07/13/24 11:07 Dose: 100 mg Documented By: ROSIBEL Guaifenesin/Codeine Phosphate (Guaifen/Codeine Sf 200/20/10ml 10 Ml Liquid) 5 ml PO Q6H PRN PRN Reason: Cough Last Admin: 07/13/24 07:54 Dose: 5 ml Documented By: ROSIBEL Azithromycin 500 mg/ Sodium (Chloride) 250 mls @ 125 mls/hr IV Q24H [facility] Magnesium Hydroxide (Milk Of Magnesia 30 Ml Oral.Susp) 30 ml PO DAILY PRN PRN Reason: Constipation Melatonin (Melatonin 3 Mg Tablet) 6 mg PO BEDTIME PRN PRN Reason: Insomnia Methylprednisolone Sodium Succinate (Methylprednisolone Sod Succ 40 Mg/Ml Vial) 40 mg IVPUSH Q12H [facility] Last Admin: 07/13/24 07:54 Dose: 40 mg Documented By: ROSIBEL Metoprolol Succinate (Metoprolol Succinate Er 100 Mg Tab.Er.24h) 100 mg PO DAILY [facility]; Protocol Last Admin: 07/13/24 07:49 Dose: 100 mg Documented By: ROSIBEL Omeprazole (Omeprazole 20 Mg Capsule.Dr) 20 mg PO DAILY@0630 [facility] Ondansetron HCl (Ondansetron Hcl 4 Mg/2 Ml Vial) 4 mg IVPUSH Q8H PRN PRN Reason: Nausea and Vomiting Ropinirole HCl (Ropinirole Hcl 2 Mg Tablet) 2 mg PO BID [facility] Sodium Chloride (0.9 % Sodium Chloride Flush 3 Ml Syringe) 3 ml IVFLUSH QSHIFT [facility] Last Admin: 07/13/24 07:55 Dose: 3 ml Documented By: ROSIBEL Spironolactone (Spironolactone 25 Mg Tablet) 12.5 mg PO DAILY [facility]; Protocol Labs 07/13/24 04:34 07/13/24 04:34 Labs: Laboratory Results - last 24 hr 07/12/24 07/12/24 07/12/24 17:21 17:22 17:26 MCV 92.6 MCH 29.9 MCHC 32.3 RDW 13.4 Plt Count 222 D MPV 9.0 L Immature Gran % (Auto) 0.3 Neut % (Auto) 78.3 H Lymph % (Auto) 8.5 L Harris % (Auto) 11.9 H Eos % (Auto) 0.6 Baso % (Auto) 0.4 Lymph # (Auto) 1.0 L Harris # (Auto) 1.4 H Eos # (Auto) 0.1 Baso # (Auto) 0.1 Abs Immat Gran (auto) 0.04 H Absolute Neuts (auto) 9.4 H Absolute Nucleated RBC 0.000 Nucleated RBC % (auto) 0.0 Smear Tech's Comments Hold Purple Top PT 20.7 H D INR 1.8 H VBG pH VBG pCO2 VBG pO2 VBG HCO3 VBG O2 Saturation VBG Base Excess Anion Gap Estim Creat Clear Calc Estimated GFR Random Glucose Estimat Average Glucose Hemoglobin A1c % Lactic Acid 2.1 H* Lactic Acid F/U @ 2Hr Calcium Total Bilirubin AST ALT Alkaline Phosphatase B-Natriuretic Peptide 249 H Total Protein Albumin Triglycerides Cholesterol LDL Cholesterol, Calc HDL Cholesterol Influenza Type A (PCR) NEGATIVE Influenza Type B (PCR) NEGATIVE RSV RNA Qual (PCR) NEGATIVE SARS-CoV-2 RNA (RT-PCR) NEGATIVE 07/12/24 07/12/24 07/12/24 17:30 17:54 20:04 MCV MCH MCHC RDW Plt Count MPV Immature Gran % (Auto) Neut % (Auto) Lymph % (Auto) Harris % (Auto) Eos % (Auto) Baso % (Auto) Lymph # (Auto) Harris # (Auto) Eos # (Auto) Baso # (Auto) Abs Immat Gran (auto) Absolute Neuts (auto) Absolute Nucleated RBC Nucleated RBC % (auto) Smear Tech's Comments Hold Purple Top SEE NOTE PT INR VBG pH 7.37 VBG pCO2 68 VBG pO2 38 VBG HCO3 40 H VBG O2 Saturation 55.0 VBG Base Excess 11.7 Anion Gap 13 Estim Creat Clear Calc 52.7 Estimated GFR > 60 Random Glucose 120 H Estimat Average Glucose Hemoglobin A1c % Lactic Acid Lactic Acid F/U @ 2Hr 0.7 Calcium 9.0 Total Bilirubin 0.5 AST 16 ALT < 6 Alkaline Phosphatase 125 H B-Natriuretic Peptide Total Protein 7.1 Albumin 3.8 Triglycerides Cholesterol LDL Cholesterol, Calc HDL Cholesterol Influenza Type A (PCR) Influenza Type B (PCR) RSV RNA Qual (PCR) SARS-CoV-2 RNA (RT-PCR) 07/13/24 04:34 MCV 91.6 MCH 30.2 MCHC 33.0 RDW 13.3 Plt Count 173 MPV 9.2 L Immature Gran % (Auto) 0.5 H Neut % (Auto) 93.2 H Lymph % (Auto) 4.2 L Harris % (Auto) 1.9 L Eos % (Auto) 0.0 Baso % (Auto) 0.2 Lymph # (Auto) 0.2 L Harris # (Auto) 0.1 Eos # (Auto) 0.0 Baso # (Auto) 0.0 Abs Immat Gran (auto) 0.03 Absolute Neuts (auto) 5.3 Absolute Nucleated RBC 0.000 Nucleated RBC % (auto) 0.0 Smear Tech's Comments VERIFIED Hold Purple Top PT INR VBG pH VBG pCO2 VBG pO2 VBG HCO3 VBG O2 Saturation VBG Base Excess Anion Gap 15 Estim Creat Clear Calc 48.9 Estimated GFR > 60 Random Glucose 149 H Estimat Average Glucose 123 Hemoglobin A1c % 5.9 Lactic Acid Lactic Acid F/U @ 2Hr Calcium 8.6 Total Bilirubin AST ALT Alkaline Phosphatase B-Natriuretic Peptide Total Protein Albumin Triglycerides 38 Cholesterol 115 LDL Cholesterol, Calc 70 HDL Cholesterol 38 L Influenza Type A (PCR) Influenza Type B (PCR) RSV RNA Qual (PCR) SARS-CoV-2 RNA (RT-PCR) Assessment and Plan (1) Left-sided weakness: Status: Acute (2) COPD exacerbation: Status: Acute Plan This is a 82-year-old male with pertinent history of chronic hypoxemic respiratory failure due to COPD on 2 L supplemental oxygen, chronic atrial fibrillation on anticoagulation, gastroesophageal reflux disease, mixed hyperlipidemia, congestive heart failure with preserved ejection fraction who presents to the emergency department for evaluation of dyspnea. Sepsis and acute on chronic respiratory failure due to right-sided pneumonia and COPD exacerbation Lactic acid 2.1, down to 0.7 continue IV ceftriaxone and azithromycin Scheduled and p.r.n. DuoNebs systemic steroids. on baseline home O2: [address] chest for further characterization left-sided weakness likely due to stroke head/neck CTA with no LVO MRI pending continue aspirin and increasing statin to high intensity dosage echo pending neurology consult atrial fibrillation with RVR likely due to missing medications and COPD exacerbation resume metoprolol, Cardizem, anticoagulation with Eliquis RLS resume gabapentin, Requip Gastroesophageal reflux disease: PPI Congestive heart failure with preserved EF: No decompensation during admission. Continue home diuretics DVT prophylaxis: Eliquis DNR/DNI. Discussed with patient at bedside Patient requires ongoing inpatient hospital stay for IV antibiotics, monitoring of respiratory status, evaluation of left-sided weakness (as above), which is not possible in a lesser acute setting. Specialist consult pending Quality Stroke Does the patient have a stroke diagnosis?: No VTE Prior VTE?: No VTE Risk Level:: Medical - moderate - high VTE Device Contraindication: Treatment Not Indicated VTE Drug Contraindication: N/A - Med Ordered
--- NOTE | 2024-07-13 12:07 | P.CNNE_ITS ---
History of Present Illness Data of Consult Service Date: 07/13/24 Primary Care Provider: Jefferson Taylor MD HPI Reason for consult: Stroke 84 years old man with CHF when COPD on anticoagulation with Eliquis who was probably not taking medicine on regular basis or missed the dose yesterday morning. Due to shortness of breath he came to hospital and later in the evening was noted to have sudden onset of left-sided weakness. Initial NIH stroke scale was 6-7 but then he improved and a decline to 2-3. I had a discussion with ER physician and due to anticoagulation on board and improvement in his clinical status treatment with TNK was not considered. CTA did not reveal any large vessel occlusion. I saw him in emergency room this morning when he was feeling better but he still had mild left-sided weakness. Review of Systems 2 Review of Systems: Shortness of breath that brought him to hospital. [facility] Past Medical History Medical History COPD (chronic obstructive pulmonary disease) Elevated brain natriuretic peptide (BNP) level Pneumonia Pneumonia COPD (chronic obstructive pulmonary disease) with emphysema Chronic atrial fibrillation HTN (hypertension) Bilateral carotid artery disease Hyperlipidemia History of cardiomyopathy COPD (chronic obstructive pulmonary disease) History of cardioversion Family History Family History Father Stroke CVD (cardiovascular disease) Mother Colon cancer Diabetes Sister Diabetes COPD (chronic obstructive pulmonary disease) Breast cancer Surgical History Surgical History History of tonsillectomy and adenoidectomy Hx of colonoscopy Hx of cardiac cath Social History Social History Household Members: Spouse Housing: House Do you presently have visiting nurse or other home services: No Alcohol intake: former Comment: pt refuses chair alarm, he has restless legs ans needs to stand often Patient Tobacco Use Status: Former Tobacco user Tobacco use type: Cigarette Second Hand Smoke Exposure: No Advance Directives Date on File: 06/11/21 service: No 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al status: retired 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 Cognitive needs: No Hearing needs: No Vision needs: Yes (rx glasses) Meds Allergies Allergy/AdvReac Type Severity Reaction Status Date / Time No Known Allergies Allergy Unknown UNKNOWN Verified 07/12/24 17:05 [NO KNOWN ALLERGIES] Active Medications: Current Medications Acetaminophen (Acetaminophen 325 Mg Tablet) 650 mg PO Q6H PRN PRN Reason: Pain, Mild 1-3,fever,headache Albuterol/Ipratropium (Albuterol/Iprat 2.5/0.5mg 3 Ml Ampul.Neb) 3 ml INHALE Q4H PRN PRN Reason: Shortness of Breath/Wheezing Albuterol/Ipratropium (Albuterol/Iprat 2.5/0.5mg 3 Ml Ampul.Neb) 3 ml INHALE RQ4H WHILE AWAKE [facility] Last Admin: 07/13/24 07:39 Dose: Not Given Apixaban (Apixaban 5 Mg Tablet) 5 mg PO BID [facility] Last Admin: 07/13/24 11:07 Dose: 5 mg Aspirin (Aspirin 81 Mg Tab.Chew) 81 mg PO DAILY [facility] Last Admin: 07/13/24 07:49 Dose: 81 mg Atorvastatin Calcium (Atorvastatin Calcium 40 Mg Tablet) 40 mg PO DAILY [facility] Last Admin: 07/13/24 07:49 Dose: 40 mg Benzonatate (Benzonatate 100 Mg Capsule) 100 mg PO TID PRN PRN Reason: Cough Calcium Carbonate (Calcium Carbonate 750 Mg Tab.Chew) 750 mg PO Q4H PRN PRN Reason: Heartburn Ceftriaxone Sodium (Ceftriaxone Sodium 1 Gm Vial) 1 gm IVPUSH Q24H [facility] Diltiazem HCl (Diltiazem Hcl Cd 240 Mg Cap.Er.Deg) 240 mg PO DAILY [facility]; Protocol Diltiazem HCl (Diltiazem Hcl Cd 120 Mg Cap.Er.Deg) 120 mg PO BEDTIME [facility]; Protocol Furosemide (Furosemide 20 Mg Tablet) 20 mg PO BID [facility]; Protocol Last Admin: 07/13/24 11:07 Dose: 20 mg Gabapentin (Gabapentin 100 Mg Capsule) 100 mg PO TID [facility] Last Admin: 07/13/24 11:07 Dose: 100 mg Guaifenesin/Codeine Phosphate (Guaifen/Codeine Sf 200/20/10ml 10 Ml Liquid) 5 ml PO Q6H PRN PRN Reason: Cough Last Admin: 07/13/24 07:54 Dose: 5 ml Azithromycin 500 mg/ Sodium (Chloride) 250 mls @ 125 mls/hr IV Q24H [facility] Magnesium Hydroxide (Milk Of Magnesia 30 Ml Oral.Susp) 30 ml PO DAILY PRN PRN Reason: Constipation Melatonin (Melatonin 3 Mg Tablet) 6 mg PO BEDTIME PRN PRN Reason: Insomnia Methylprednisolone Sodium Succinate (Methylprednisolone Sod Succ 40 Mg/Ml Vial) 40 mg IVPUSH Q12H [facility] Last Admin: 07/13/24 07:54 Dose: 40 mg Metoprolol Succinate (Metoprolol Succinate Er 100 Mg Tab.Er.24h) 100 mg PO DAILY [facility]; Protocol Last Admin: 07/13/24 07:49 Dose: 100 mg Omeprazole (Omeprazole 20 Mg Capsule.Dr) 20 mg PO DAILY@0630 [facility] Ondansetron HCl (Ondansetron Hcl 4 Mg/2 Ml Vial) 4 mg IVPUSH Q8H PRN PRN Reason: Nausea and Vomiting Ropinirole HCl (Ropinirole Hcl 2 Mg Tablet) 2 mg PO BID [facility] Sodium Chloride (0.9 % Sodium Chloride Flush 3 Ml Syringe) 3 ml IVFLUSH QSHIFT [facility] Last Admin: 07/13/24 07:55 Dose: 3 ml Spironolactone (Spironolactone 25 Mg Tablet) 12.5 mg PO DAILY [facility]; Protocol Home Medications ?Medication ?Instructions ?Recorded ?Confirmed ?Last Taken ?Type apixaban 5 mg tablet 5 mg PO BID 01/28/20 07/13/24 1 Day Ago History ~07/12/24 ropinirole 2 mg tablet 2 mg PO BID 08/04/21 07/13/24 1 Day Ago History ~07/12/24 diltiazem HCl 120 mg capsule,24 120 mg PO BEDTIME 02/01/22 07/13/24 1 Day Ago History hr,extended release ~07/12/24 furosemide 20 mg tablet 20 mg PO BID 02/01/23 07/13/24 1 Day Ago History ~07/12/24 fluticasone fur. 200 mcg-umeclid 1 ea inhalation DAILY 05/17/24 07/13/24 1 Day Ago History 62.5 mcg-vilant 25 mcg ~07/12/24 inhalat.powder (Trelegy Ellipta) pantoprazole 40 mg tablet,delayed 40 mg PO DAILY@0630 05/17/24 07/13/24 1 Day Ago History release ~07/12/24 Physical Exam 2 Vital Signs: Vital Signs: Last Vital Signs Temp 97.6 F 07/13/24 05:41 Pulse 133 H 07/13/24 07:49 Resp 30 H 07/13/24 05:41 BP 107/55 L 07/13/24 07:49 Pulse Ox 90 L 07/13/24 05:41 O2 Del Method Nasal Cannula 07/13/24 05:41 O2 Flow Rate 2 07/13/24 05:41 Oxygen Flow Rate 2 07/12/24 17:03 BMI result Body Mass Index 21.5 Neuro: Other: Alert and awake with normal spontaneity of speech fluency comprehension and flat affect. There was almost no facial asymmetry. There was mild left arm drift. Leg strength was symmetrical and okay. Plantars were flexor. Deep tendon reflexes were absent. Visual extinction was absent. Results Labs 07/13/24 04:34 07/13/24 04:34 Labs: Short CBC 07/12/24 07/13/24 Range/Units 17:21 04:34 WBC 12.1 H 5.7 (4.8-10.8) X10*3/uL Hgb 14.1 13.4 L (14.0-18.0) g/dl Hct 43.6 40.6 L (42.0-52.0) % Plt Count 222 D 173 (160-400) X10*3/uL BMP 07/12/24 07/13/24 17:54 04:34 Sodium 137 136 Potassium 4.5 4.5 Chloride 95 L 93 L Carbon Dioxide 34 H 33 H BUN 22 H 25 H Creatinine 1.04 1.12 Calcium 9.0 8.6 Liver Function 07/12/24 Range/Units 17:54 Total Bilirubin 0.5 (0.0-1.0) mg/dL AST 16 (5-37) U/L ALT < 6 (0-40) U/L Alkaline Phosphatase 125 H (39-117) U/L Albumin 3.8 (3.5-5.0) g/dL Head CT revealed mild diffuse cerebral atrophy with no acute lesion. CTA did not reveal any vascular stenosis. Assessment and Plan (1) Cerebral infarction: Qualifiers: Cerebral infarction mechanism: embolism Precerebral and cerebral artery: middle cerebral artery Laterality of affected vessel: right Qualified Code(s): I63.411 - Cerebral infarction due to embolism of right middle cerebral artery Status: Acute 84 years old man who probably had a small embolic right frontal middle cerebral artery area ischemic infarction as he missed his dose of anticoagulation. Mainstay of management is regular use of these drugs as the do not have long half life. Otherwise PT OT consultation is recommended. Procedures Date of Service Date of Service: 07/13/24
[2024-07-13] MEDS: dilTIAZem HCL CD 240 MG CAP.ER.DEG PO (13:33)
[2024-07-13] MEDS: rOPINIRole HCL 2 MG TABLET PO ×2 (13:34→21:02)
[2024-07-13] MEDS: Albuterol/Iprat 2.5/0.5MG 3 ML AMPUL.NEB INHALE ×2 (15:55→19:23)
[2024-07-13] MEDS: cefTRIAXone sodium 1 GM VIAL IVPUSH (16:47)
[2024-07-13] MEDS: Azithromycin 500 MG in 0.9 % Sodium Chloride 250 ML 125 MG IV (19:05)
[2024-07-13 20:58] LABS: VBG Base Excess 6.8 mmol/L; VBG HCO3 31 mmol/L (22-26); VBG pCO2 44 mmHg; VBG pH 7.45 (7.32-7.43); VBG pO2 51 mmHg
[2024-07-13 21:00] LABS: Venous Blood Gas Refer to POC result
[2024-07-13] MEDS: dilTIAZem HCL CD 120 MG CAP.ER.DEG PO (21:02)
[2024-07-13 21:15] LABS: B Type Natriuretic Peptide 869 pg/mL (<100)
--- NOTE | 2024-07-13 21:24 | PM.EVENT ---
Event Note Date of Service: 07/13/24 Event Note: Patient with dyspnea and increasing oxygen requirements. Bilateral crackles noted. Obtained chest x-ray which is with vascular congestion. BNP elevated. Will order 1 dose of IV Lasix. Time Spent With Patient Time: Total time managing care of this patient today ____ minutes.
[2024-07-13] MEDS: Furosemide 40 MG/4 ML VIAL IVPUSH (21:33)
[2024-07-13 23:42] LABS: Glucose, Whole Blood 129 mg/dL (60-115)
[2024-07-14] VITALS (10 sets, daily range): BP systolic 97–139; BP diastolic 51–76; PULSE 97–112; RESP 16–28; TEMP 36.3–37.6; O2SAT 86–98
--- NOTE | 2024-07-14 01:38 | PM.EVENT ---
Event Note Date of Service: 07/14/24 Event Note: Reported hematuria. Hold Eliquis and initiating CBI. Consulted Urology Time Spent With Patient Time: Total time managing care of this patient today ____ minutes.
[2024-07-14] MEDS: Lidocaine HCl 2 % Urojet 10 ML JEL.PF.APP TOPICAL (02:38)
[2024-07-14] MEDS: Omeprazole 20 MG CAPSULE.DR PO (06:26)
[2024-07-14] MEDS: Metoprolol Succinate ER 100 MG TAB.ER.24H PO (08:06)
[2024-07-14] MEDS: Spironolactone 25 MG TABLET 12.5 MG PO (08:07)
[2024-07-14] MEDS: Furosemide 20 MG TABLET PO (08:07)
[2024-07-14] MEDS: dilTIAZem HCL CD 240 MG CAP.ER.DEG PO (08:07)
[2024-07-14] MEDS: rOPINIRole HCL 2 MG TABLET PO ×2 (08:07→20:17)
[2024-07-14] MEDS: Gabapentin 100 MG CAPSULE PO (08:07)
[2024-07-14] MEDS: Atorvastatin Calcium 40 MG TABLET PO (08:07)
[2024-07-14] MEDS: Aspirin 81 MG TAB.CHEW PO (08:07)
[2024-07-14] MEDS: methylPREDNISolone Sod Succ 40 MG/ML VIAL IVPUSH ×2 (08:07→20:17)
[2024-07-14] MEDS: 0.9 % Sodium Chloride Flush 3 ML SYRINGE IVFLUSH ×2 (08:08→20:27)
--- NOTE | 2024-07-14 09:17 | MHC.CM.PN ---
IMM delivered. Patient lives in a home w/ . Independent w/ care. Ambulates w/ cane. Uses 2L O2 @ baseline, supplied by [employer]. Reports he is active with [facility] for SN/PT. Return referral sent. PCP Jefferson Taylor MD Reports he has an HCP naming his , Ree, as HCA. Copy requested. DP: PT rec inpatient pulm rehab. Patient is currently undecided, may prefer to return home w/ services, but agrees to referrals at this time. Transport TBD by dispo, family transport if home. CM will continue to follow.
--- NOTE | 2024-07-14 12:00 | HO.PM.IMPN ---
Subjective Subjective Date of Service: 07/14/24 Interval History: seen and examined this morning follow up for COPD exacerbation, pneumonia pt noted to be in afib rvr, denies palpitations reports sob, cough Review of Systems Review of Systems: Yes all other systems are reviewed and are negative Constitutional Constitutional: Denies chills and Denies fever(s) Cardiovascular Cardiovascular: Denies chest pain, Denies palpitations and Reports dyspnea Respiratory Respiratory: Reports cough and Reports dyspnea Gastrointestinal Gastrointestinal: Denies abdominal pain Endocrine Endocrine: Denies palpitations Physical Exam Vital Signs: Vital Signs: Last Vital Signs Temp 97.9 F 07/14/24 11:02 Pulse 98 07/14/24 11:02 Resp 28 H 07/14/24 11:02 BP 139/65 07/14/24 11:02 Pulse Ox 96 07/14/24 11:02 O2 Del Method Oxymask 07/14/24 11:02 O2 Flow Rate 4 07/14/24 11:02 FiO2 96 07/14/24 03:00 Oxygen Flow Rate 2 07/12/24 17:03 BMI result Body Mass Index 21.5 Appearing in no acute distress lung sounds are clear to auscultation heart regular rate rhythm, clear S1, S2 positive bowel sounds, abdomen is soft, nontender neuro patient is alert x3, no focal deficits Objective Data Active Medications Acetaminophen (Acetaminophen 325 Mg Tablet) 650 mg PO Q6H PRN PRN Reason: Pain, Mild 1-3,fever,headache Albuterol/Ipratropium (Albuterol/Iprat 2.5/0.5mg 3 Ml Ampul.Neb) 3 ml INHALE Q4H PRN PRN Reason: Shortness of Breath/Wheezing Albuterol/Ipratropium (Albuterol/Iprat 2.5/0.5mg 3 Ml Ampul.Neb) 3 ml INHALE RQ4H WHILE AWAKE [facility] Last Admin: 07/14/24 11:10 Dose: Not Given Documented By: APOLLO Non-Admin Reason: Patient Refused Aspirin (Aspirin 81 Mg Tab.Chew) 81 mg PO DAILY [facility] Last Admin: 07/14/24 08:07 Dose: 81 mg Documented By: HAYDEE Atorvastatin Calcium (Atorvastatin Calcium 40 Mg Tablet) 40 mg PO DAILY [facility] Last Admin: 07/14/24 08:07 Dose: 40 mg Documented By: HAYDEE Benzonatate (Benzonatate 100 Mg Capsule) 100 mg PO TID PRN PRN Reason: Cough Calcium Carbonate (Calcium Carbonate 750 Mg Tab.Chew) 750 mg PO Q4H PRN PRN Reason: Heartburn Ceftriaxone Sodium (Ceftriaxone Sodium 1 Gm Vial) 1 gm IVPUSH Q24H [facility] Last Admin: 07/13/24 16:47 Dose: 1 gm Documented By: HAYDEE Diltiazem HCl (Diltiazem Hcl Cd 240 Mg Cap.Er.Deg) 240 mg PO DAILY [facility]; Protocol Last Admin: 07/14/24 08:07 Dose: 240 mg Documented By: HAYDEE Diltiazem HCl (Diltiazem Hcl Cd 120 Mg Cap.Er.Deg) 120 mg PO BEDTIME [facility]; Protocol Last Admin: 07/13/24 21:02 Dose: 120 mg Documented By: TRACY Furosemide (Furosemide 20 Mg Tablet) 20 mg PO BID [facility]; Protocol Last Admin: 07/14/24 08:07 Dose: 20 mg Documented By: HAYDEE Gabapentin (Gabapentin 100 Mg Capsule) 100 mg PO TID [facility] Last Admin: 07/14/24 08:07 Dose: 100 mg Documented By: HAYDEE Guaifenesin/Codeine Phosphate (Guaifen/Codeine Sf 200/20/10ml 10 Ml Liquid) 5 ml PO Q6H PRN PRN Reason: Cough Last Admin: 07/13/24 07:54 Dose: 5 ml Documented By: ROSIBEL Azithromycin 500 mg/ Sodium (Chloride) 250 mls @ 125 mls/hr IV Q24H [facility] Last Infusion: 07/13/24 21:05 Dose: Infused Documented By: TRACY Magnesium Hydroxide (Milk Of Magnesia 30 Ml Oral.Susp) 30 ml PO DAILY PRN PRN Reason: Constipation Melatonin (Melatonin 3 Mg Tablet) 6 mg PO BEDTIME PRN PRN Reason: Insomnia Methylprednisolone Sodium Succinate (Methylprednisolone Sod Succ 40 Mg/Ml Vial) 40 mg IVPUSH Q12H [facility] Last Admin: 07/14/24 08:07 Dose: 40 mg Documented By: HAYDEE Metoprolol Succinate (Metoprolol Succinate Er 100 Mg Tab.Er.24h) 100 mg PO DAILY [facility]; Protocol Last Admin: 07/14/24 08:06 Dose: 100 mg Documented By: HAYDEE Omeprazole (Omeprazole 20 Mg Capsule.) 20 mg PO DAILY@0630 [facility] Last Admin: 07/14/24 06:26 Dose: 20 mg Documented By: TRACY Ondansetron HCl (Ondansetron Hcl 4 Mg/2 Ml Vial) 4 mg IVPUSH Q8H PRN PRN Reason: Nausea and Vomiting Ropinirole HCl (Ropinirole Hcl 2 Mg Tablet) 2 mg PO BID [facility] Last Admin: 07/14/24 08:07 Dose: 2 mg Documented By: HAYDEE Sodium Chloride (0.9 % Sodium Chloride Flush 3 Ml Syringe) 3 ml IVFLUSH QSHIFT [facility] Last Admin: 07/14/24 08:08 Dose: 3 ml Documented By: HAYDEE Spironolactone (Spironolactone 25 Mg Tablet) 12.5 mg PO DAILY [facility]; Protocol Last Admin: 07/14/24 08:07 Dose: 12.5 mg Documented By: HAYDEE Labs 07/14/24 12:29 07/14/24 12:29 Labs: Laboratory Results - last 24 hr 07/13/24 07/13/24 07/13/24 20:48 20:53 23:19 VBG pH 7.45 H VBG pCO2 44 VBG pO2 51 VBG HCO3 31 H VBG O2 Saturation 86.0 VBG Base Excess 6.8 POC Glucose 129 H B-Natriuretic Peptide 869 H Microbiology Microbiology Results: Microbiology 07/12/24 17:21 Blood Culture - Preliminary Blood - Venous No growth after 24 hours. 07/12/24 17:23 Blood Culture - Preliminary Blood - Venous No growth after 24 hours. Assessment and Plan (1) Left-sided weakness: Status: Acute (2) COPD exacerbation: Status: Acute Plan 82-year-old male with pertinent history of chronic hypoxemic respiratory failure due to COPD on 2 L supplemental oxygen, chronic atrial fibrillation on anticoagulation, gastroesophageal reflux disease, mixed hyperlipidemia, congestive heart failure with preserved ejection fraction who presents to the emergency department for evaluation of dyspnea. Encepalopathy likely hospital delirium treat for PNA with abx at this time Hematuria Eliquis on Hold CBI initiated, on hold to assess for improvement urology consultation pending Hyperkalemia Lokelma follow CBC Sepsis and acute on chronic respiratory failure due to right-sided pneumonia and COPD exacerbation Sepsis resolved s/p IV ceftriaxone and azithromycin Scheduled and p.r.n. DuoNebs systemic steroids. 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 Continue home diuretics DVT prophylaxis Eliquis DNR/DNI. Discussed with patient at bedside Quality Stroke Does the patient have a stroke diagnosis?: No VTE Prior VTE?: No VTE Risk Level:: Medical - moderate - high VTE Device Contraindication: Treatment Not Indicated VTE Drug Contraindication: N/A - Med Ordered
[2024-07-14 12:35] LABS: Hematocrit 44.7 % (42.0-52.0); Mean Corpuscular HGB Conc 31.3 g/dl (31.0-36.0); Mean Corpuscular Hemoglobin 29.5 pg (27.0-33.0); Mean Corpuscular Volume 94.1 fL (80.0-98.0); Mean Platelet Volume 9.2 fL (9.4-12.4); Platelet Count 201 X10*3/uL (160-400); Red Blood Count 4.75 X10*6/uL (4.60-5.80); Red Cell Distribution Width 12.9 % (11.0-16.0); White Blood Count 14.2 X10*3/uL (4.8-10.8)
[2024-07-14] MEDS: Furosemide 40 MG/4 ML VIAL IVPUSH ×2 (12:53→18:13)
[2024-07-14 13:08] LABS: Anion Gap 17 (12-20); Blood Urea Nitrogen 42 mg/dL (9-16); Carbon Dioxide 34 mmol/L (22-29); Chloride 93 mmol/L (96-108); Creatinine Clr Calc Pharmacy 43.1; Estimated Glomerular Filt Rate 54; Glucose Random 151 mg/dL (60-115); Potassium 5.7 mmol/L (3.3-5.1); Sodium 138 mmol/L (135-145)
[2024-07-14 13:45] LABS: B Type Natriuretic Peptide 767 pg/mL (<100)
[2024-07-14] MEDS: Albuterol/Iprat 2.5/0.5MG 3 ML AMPUL.NEB INHALE ×2 (15:08→18:34)
[2024-07-14] MEDS: cefTRIAXone sodium 1 GM VIAL IVPUSH (16:02)
[2024-07-14] MEDS: vancomycin HCL 1,500 MG in 0.9 % Sodium Chloride 500 ML 333.33 MG IV (16:03)
[2024-07-14] MEDS: Morphine Sulfate 2 MG/ML CARTRIDGE 0.5 MG IVPUSH ×2 (16:25→20:26)
[2024-07-14] MEDS: Azithromycin 500 MG in 0.9 % Sodium Chloride 250 ML 125 MG IV (18:13)
[2024-07-14] MEDS: Acetaminophen Supp 650 MG SUPP.RECT PR (18:18)
[2024-07-14] MEDS: OLANZapine 10 MG VIAL 5 MG IM (22:01)
[2024-07-15] VITALS (18 sets, daily range): BP systolic 109–159; BP diastolic 55–82; PULSE 84–152; RESP 14–34; TEMP 36.4–36.9; O2SAT 90–98
--- NOTE | 2024-07-15 | ECG_ITS ---
Test Reason : chest pain, sob Blood Pressure : */* mmHG Vent. Rate : 138 BPM Atrial Rate : * BPM P-R Int : * ms QRS Dur : 98 ms QT Int : 262 ms P-R-T Axes : * -84 94 degrees QTcB Int : 396 ms Atrial fibrillation with rapid ventricular response Left axis deviation Incomplete right bundle branch block Anteroseptal infarct (cited on or before 09-Apr-2013) Abnormal ECG When compared with ECG of 12-Jul-2024 17:34, No significant change was found Referred By: Latasha Genao Electronically Signed By: Dajuan Sosa
[2024-07-15] MEDS: diazePAM 10 MG/2 ML CARTRIDGE 5 MG IVPUSH ×2 (00:04→17:35)
[2024-07-15] MEDS: OLANZapine 10 MG VIAL IM (02:39)
[2024-07-15] MEDS: Morphine Sulfate 2 MG/ML CARTRIDGE 0.5 MG IVPUSH ×4 (03:37→22:35)
--- NOTE | 2024-07-15 06:01 | PC.NURSE ---
Pt was unable to follow commands throughout the night, needing constant redirection from staff. Pt disrobed, pulled at telemonitor, 3-way burgos, IV, trying to exit bed and becoming aggressive with staff. MD notified multiple times and pt received several doses of medication, see MAR. Pt continued to be restless and exhibit delirious behaviors as described above. No sitter was available and RN had to be stationed outside of room throughout of the night, even with camera in the room.
[2024-07-15] MEDS: Albuterol/Iprat 2.5/0.5MG 3 ML AMPUL.NEB INHALE ×3 (07:31→18:38)
[2024-07-15 09:17] LABS: Hematocrit 44.4 % (42.0-52.0); Hemoglobin 13.7 g/dl (14.0-18.0); Mean Corpuscular HGB Conc 30.9 g/dl (31.0-36.0); Mean Corpuscular Hemoglobin 29.7 pg (27.0-33.0); Mean Corpuscular Volume 96.3 fL (80.0-98.0); Mean Platelet Volume 9.6 fL (9.4-12.4); Platelet Count 170 X10*3/uL (160-400); Red Blood Count 4.61 X10*6/uL (4.60-5.80); Red Cell Distribution Width 12.9 % (11.0-16.0); White Blood Count 10.5 X10*3/uL (4.8-10.8)
[2024-07-15 09:30] LABS: Anion Gap 13 (12-20); Blood Urea Nitrogen 54 mg/dL (9-16); Carbon Dioxide 39 mmol/L (22-29); Chloride 95 mmol/L (96-108); Creatinine Clr Calc Pharmacy 40.5; Estimated Glomerular Filt Rate 51; Glucose Random 137 mg/dL (60-115); Potassium 4.6 mmol/L (3.3-5.1); Sodium 142 mmol/L (135-145)
--- NOTE | 2024-07-15 09:34 | HE.PHANOTE ---
re vanco Patient has only received load dose of vancomycin so far, patient is due for 1250 mg of vancomycin at 1600 today, level to be pulled tomorrow 07/16 @1400 to ensure safety vs efficacy
[2024-07-15 09:36] LABS: B Type Natriuretic Peptide 432 pg/mL (<100)
[2024-07-15] MEDS: Furosemide 40 MG/4 ML VIAL IVPUSH (09:57)
[2024-07-15] MEDS: methylPREDNISolone Sod Succ 40 MG/ML VIAL IVPUSH ×2 (09:57→20:24)
--- NOTE | 2024-07-15 10:09 | HO.PM.IMPN ---
Subjective Subjective Date of Service: 07/15/24 Interval History: seen and examined this morning follow up for COPD exacerbation, pneumonia very delirious overnight requiring multiple medications Review of Systems Review of Systems: Yes all other systems are reviewed and are negative Constitutional Constitutional: Denies chills and Denies fever(s) Cardiovascular Cardiovascular: Denies chest pain, Denies palpitations and Reports dyspnea Respiratory Respiratory: Reports cough and Reports dyspnea Gastrointestinal Gastrointestinal: Denies abdominal pain Endocrine Endocrine: Denies palpitations Physical Exam Vital Signs: Vital Signs: Last Vital Signs Temp 98.4 F 07/15/24 07:26 Pulse 102 H 07/15/24 07:31 Resp 14 07/15/24 07:31 BP 130/82 07/15/24 09:57 Pulse Ox 96 07/15/24 07:26 O2 Del Method Humidified O2, Ox ymask 07/15/24 07:26 O2 Flow Rate 5 07/15/24 07:26 FiO2 96 07/14/24 03:00 Oxygen Flow Rate 2 07/12/24 17:03 BMI result Body Mass Index 21.5 Appearing in no acute distress lung sounds are clear to auscultation heart regular rate rhythm, clear S1, S2 positive bowel sounds, abdomen is soft, nontender neuro patient is alert x3, no focal deficits Objective Data Active Medications Acetaminophen (Acetaminophen 325 Mg Tablet) 650 mg PO Q6H PRN PRN Reason: Pain, Mild 1-3,fever,headache Acetaminophen (Acetaminophen Supp 650 Mg Supp.Rect) 650 mg SC Q6H PRN PRN Reason: Fever Last Admin: 07/14/24 18:18 Dose: 650 mg Documented By: HAYDEE Albuterol/Ipratropium (Albuterol/Iprat 2.5/0.5mg 3 Ml Ampul.Neb) 3 ml INHALE Q4H PRN PRN Reason: Shortness of Breath/Wheezing Albuterol/Ipratropium (Albuterol/Iprat 2.5/0.5mg 3 Ml Ampul.Neb) 3 ml INHALE RQ4H WHILE AWAKE [facility] Last Admin: 07/15/24 07:31 Dose: 3 ml Documented By: APOLLO Aspirin (Aspirin 81 Mg Tab.Chew) 81 mg PO DAILY [facility] Last Admin: 07/15/24 08:11 Dose: Not Given Documented By: HAYDEE Non-Admin Reason: Patient Condition Contraindication Atorvastatin Calcium (Atorvastatin Calcium 40 Mg Tablet) 40 mg PO DAILY [facility] Last Admin: 07/15/24 08:12 Dose: Not Given Documented By: HAYDEE Non-Admin Reason: Patient Condition Contraindication Benzonatate (Benzonatate 100 Mg Capsule) 100 mg PO TID PRN PRN Reason: Cough Calcium Carbonate (Calcium Carbonate 750 Mg Tab.Chew) 750 mg PO Q4H PRN PRN Reason: Heartburn Ceftriaxone Sodium (Ceftriaxone Sodium 1 Gm Vial) 1 gm IVPUSH Q24H [facility] Last Admin: 07/14/24 16:02 Dose: 1 gm Documented By: HAYDEE Diltiazem HCl (Diltiazem Hcl Cd 240 Mg Cap.Er.Deg) 240 mg PO DAILY [facility]; Protocol Last Admin: 07/15/24 08:12 Dose: Not Given Documented By: HAYDEE Non-Admin Reason: Patient Condition Contraindication Diltiazem HCl (Diltiazem Hcl Cd 120 Mg Cap.Er.Deg) 120 mg PO BEDTIME [facility]; Protocol Last Admin: 07/14/24 20:21 Dose: Not Given Documented By: DORY Non-Admin Reason: Decreased Blood Pressure Comments: per Furosemide (Furosemide 40 Mg/4 Ml Vial) 40 mg IVPUSH BID@0900,1800 [facility]; Protocol Last Admin: 07/15/24 09:57 Dose: 40 mg Documented By: HAYDEE Gabapentin (Gabapentin 100 Mg Capsule) 100 mg PO TID [facility] Last Admin: 07/15/24 08:12 Dose: Not Given Documented By: HAYDEE Non-Admin Reason: Patient Condition Contraindication Guaifenesin/Codeine Phosphate (Guaifen/Codeine Sf 200/20/10ml 10 Ml Liquid) 5 ml PO Q6H PRN PRN Reason: Cough Last Admin: 07/13/24 07:54 Dose: 5 ml Documented By: ROSIBEL Azithromycin 500 mg/ Sodium (Chloride) 250 mls @ 125 mls/hr IV Q24H [facility] Last Infusion: 07/14/24 20:15 Dose: Infused Documented By: DORY Vancomycin HCl 1,250 mg/ (Sodium Chloride) 250 mls @ 166.667 mls/hr IV Q24H [facility] Magnesium Hydroxide (Milk Of Magnesia 30 Ml Oral.Susp) 30 ml PO DAILY PRN PRN Reason: Constipation Melatonin (Melatonin 3 Mg Tablet) 6 mg PO BEDTIME PRN PRN Reason: Insomnia Methylprednisolone Sodium Succinate (Methylprednisolone Sod Succ 40 Mg/Ml Vial) 40 mg IVPUSH Q12H [facility] Last Admin: 07/15/24 09:57 Dose: 40 mg Documented By: HAYDEE Metoprolol Succinate (Metoprolol Succinate Er 100 Mg Tab.Er.24h) 100 mg PO DAILY [facility]; Protocol Last Admin: 07/15/24 08:12 Dose: Not Given Documented By: HAYDEE Non-Admin Reason: Patient Condition Contraindication Morphine Sulfate (Morphine Sulfate 2 Mg/Ml Cartridge) 0.5 mg IVPUSH Q4H PRN; Protocol PRN Reason: tachypnea Last Admin: 07/15/24 09:59 Dose: 0.5 mg Documented By: HAYDEE Omeprazole (Omeprazole 20 Mg Capsule.Dr) 20 mg PO DAILY@0630 [facility] Last Admin: 07/15/24 08:11 Dose: Not Given Documented By: HAYDEE Non-Admin Reason: Patient Condition Contraindication Ondansetron HCl (Ondansetron Hcl 4 Mg/2 Ml Vial) 4 mg IVPUSH Q8H PRN PRN Reason: Nausea and Vomiting Pharmacy Consult (Consult Rx Vancomycin Dosing) 1 each MISCELLANE DAILY PRN PRN Reason: Consult order Ropinirole HCl (Ropinirole Hcl 2 Mg Tablet) 2 mg PO BID [facility] Last Admin: 07/15/24 08:12 Dose: Not Given Documented By: HAYDEE Non-Admin Reason: Patient Condition Contraindication Sodium Chloride (0.9 % Sodium Chloride Flush 3 Ml Syringe) 3 ml IVFLUSH QSHIFT [facility] Last Admin: 07/15/24 08:00 Dose: Not Given Documented By: HAYDEE Non-Admin Reason: No Access Spironolactone (Spironolactone 25 Mg Tablet) 12.5 mg PO DAILY [facility]; Protocol Last Admin: 07/15/24 08:12 Dose: Not Given Documented By: HAYDEE Non-Admin Reason: Patient Condition Contraindication Labs 07/15/24 08:56 07/15/24 08:56 Labs: Laboratory Results - last 24 hr 07/14/24 07/14/24 07/15/24 12:29 13:08 08:56 MCV 94.1 96.3 MCH 29.5 29.7 MCHC 31.3 30.9 L RDW 12.9 12.9 Plt Count 201 170 MPV 9.2 L 9.6 Absolute Nucleated RBC 0.000 0.000 Nucleated RBC % (auto) 0.0 0.0 Anion Gap 17 13 Estim Creat Clear Calc 43.1 40.5 Estimated GFR 54 51 Random Glucose 151 H 137 H Calcium 9.0 9.0 B-Natriuretic Peptide 767 H 432 H Microbiology Microbiology Results: Microbiology 07/12/24 17:21 Blood Culture - Preliminary Blood - Venous No growth after 48 hours. 07/12/24 17:23 Blood Culture - Preliminary Blood - Venous No growth after 48 hours. Assessment and Plan (1) Left-sided weakness: Status: Acute (2) COPD exacerbation: Status: Acute Plan 82-year-old male with pertinent history of chronic hypoxemic respiratory failure due to COPD on 2 L supplemental oxygen, chronic atrial fibrillation on anticoagulation, gastroesophageal reflux disease, mixed hyperlipidemia, congestive heart failure with preserved ejection fraction who presents to the emergency department for evaluation of dyspnea. Congestive heart failure with preserved EF BNP peaked at 869, down to 432 today On Lasix 40 mg BID follow I&O closely Sepsis and acute on chronic respiratory failure due to right-sided pneumonia and COPD exacerbation Sepsis resolved s/p IV ceftriaxone and azithromycin Scheduled and p.r.n. DuoNebs systemic steroids. on baseline home O2 2 L, titrate as needed noted hypoxia 07/14 >Repeat CXR 07/14 showing multifocal bilateral pulmonary opacities mildly worsening Changed antibiotics to vancomycin and Zosyn Encepalopathy likely hospital delirium worse overnight requiring zyprexa and valium Hematuria Eliquis on Hold CBI initiated, on hold to assess for improvement urology consultation pending Hyperkalemia. 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 Discussed with patient at bedside Quality Stroke Does the patient have a stroke diagnosis?: No VTE Prior VTE?: No VTE Risk Level:: Medical - moderate - high VTE Device Contraindication: Treatment Not Indicated VTE Drug Contraindication: N/A - Med Ordered
[2024-07-15 10:40] LABS: Venous Blood Gas Refer to POC result
[2024-07-15 10:41] LABS: VBG Base Excess 17.3 mmol/L; VBG HCO3 49 mmol/L (22-26); VBG pCO2 99 mmHg; VBG pO2 28 mmHg
--- NOTE | 2024-07-15 13:34 | P.CNUR_ITS ---
History of Present Illness Consult details Consult date: 07/15/24 Narrative: Hematuria Eliquis on Hold CBI initiated, on hold to assess for improvement urology consultation pending [facility] Past Medical History Medical History COPD (chronic obstructive pulmonary disease) Elevated brain natriuretic peptide (BNP) level Pneumonia Pneumonia COPD (chronic obstructive pulmonary disease) with emphysema Chronic atrial fibrillation HTN (hypertension) Bilateral carotid artery disease Hyperlipidemia History of cardiomyopathy COPD (chronic obstructive pulmonary disease) History of cardioversion Family History Family History Father Stroke CVD (cardiovascular disease) Mother Colon cancer Diabetes Sister Diabetes COPD (chronic obstructive pulmonary disease) Breast cancer Surgical History Surgical History History of tonsillectomy and adenoidectomy Hx of colonoscopy Hx of cardiac cath Social History Social History Household Members: Spouse Housing: House Do you presently have visiting nurse or other home services: No Alcohol intake: former Comment: pt refuses chair alarm, he has restless legs ans needs to stand often Patient Tobacco Use Status: Former Tobacco user Tobacco use type: Cigarette Second Hand Smoke Exposure: No Advance Directives Date on File: 06/11/21 service: No 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al status: retired 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 Cognitive needs: No Hearing needs: No Vision needs: Yes (rx glasses) Meds Allergies Allergy/AdvReac Type Severity Reaction Status Date / Time No Known Allergies Allergy Unknown UNKNOWN Verified 07/12/24 17:05 [NO KNOWN ALLERGIES] Active Medications: Current Medications Acetaminophen (Acetaminophen 325 Mg Tablet) 650 mg PO Q6H PRN PRN Reason: Pain, Mild 1-3,fever,headache Acetaminophen (Acetaminophen Supp 650 Mg Supp.Rect) 650 mg ME Q6H PRN PRN Reason: Fever Last Admin: 07/14/24 18:18 Dose: 650 mg Albuterol/Ipratropium (Albuterol/Iprat 2.5/0.5mg 3 Ml Ampul.Neb) 3 ml INHALE Q4H PRN PRN Reason: Shortness of Breath/Wheezing Albuterol/Ipratropium (Albuterol/Iprat 2.5/0.5mg 3 Ml Ampul.Neb) 3 ml INHALE RQ4H WHILE AWAKE [facility] Last Admin: 07/15/24 11:21 Dose: Not Given Aspirin (Aspirin 81 Mg Tab.Chew) 81 mg PO DAILY [facility] Last Admin: 07/15/24 08:11 Dose: Not Given Atorvastatin Calcium (Atorvastatin Calcium 40 Mg Tablet) 40 mg PO DAILY [facility] Last Admin: 07/15/24 08:12 Dose: Not Given Benzonatate (Benzonatate 100 Mg Capsule) 100 mg PO TID PRN PRN Reason: Cough Calcium Carbonate (Calcium Carbonate 750 Mg Tab.Chew) 750 mg PO Q4H PRN PRN Reason: Heartburn Ceftriaxone Sodium (Ceftriaxone Sodium 1 Gm Vial) 1 gm IVPUSH Q24H [facility] Last Admin: 07/14/24 16:02 Dose: 1 gm Diltiazem HCl (Diltiazem Hcl Cd 240 Mg Cap.Er.Deg) 240 mg PO DAILY [facility]; Protocol Last Admin: 07/15/24 08:12 Dose: Not Given Diltiazem HCl (Diltiazem Hcl Cd 240 Mg Cap.Er.Deg) 240 mg PO BEDTIME [facility]; Protocol Furosemide (Furosemide 40 Mg/4 Ml Vial) 40 mg IVPUSH DAILY [facility]; Protocol Gabapentin (Gabapentin 100 Mg Capsule) 100 mg PO TID [facility] Last Admin: 07/15/24 08:12 Dose: Not Given Guaifenesin/Codeine Phosphate (Guaifen/Codeine Sf 200/20/10ml 10 Ml Liquid) 5 ml PO Q6H PRN PRN Reason: Cough Last Admin: 07/13/24 07:54 Dose: 5 ml Azithromycin 500 mg/ Sodium (Chloride) 250 mls @ 125 mls/hr IV Q24H [facility] Last Infusion: 07/14/24 20:15 Dose: Infused Vancomycin HCl 1,250 mg/ (Sodium Chloride) 250 mls @ 166.667 mls/hr IV Q24H [facility] Magnesium Hydroxide (Milk Of Magnesia 30 Ml Oral.Susp) 30 ml PO DAILY PRN PRN Reason: Constipation Melatonin (Melatonin 3 Mg Tablet) 6 mg PO BEDTIME PRN PRN Reason: Insomnia Methylprednisolone Sodium Succinate (Methylprednisolone Sod Succ 40 Mg/Ml Vial) 40 mg IVPUSH Q12H [facility] Last Admin: 07/15/24 09:57 Dose: 40 mg Metoprolol Succinate (Metoprolol Succinate Er 100 Mg Tab.Er.24h) 100 mg PO DAILY [facility]; Protocol Last Admin: 07/15/24 08:12 Dose: Not Given Morphine Sulfate (Morphine Sulfate 2 Mg/Ml Cartridge) 0.5 mg IVPUSH Q4H PRN; Protocol PRN Reason: tachypnea Last Admin: 07/15/24 09:59 Dose: 0.5 mg Omeprazole (Omeprazole 20 Mg Capsule.Dr) 20 mg PO DAILY@0630 [facility] Last Admin: 07/15/24 08:11 Dose: Not Given Ondansetron HCl (Ondansetron Hcl 4 Mg/2 Ml Vial) 4 mg IVPUSH Q8H PRN PRN Reason: Nausea and Vomiting Pharmacy Consult (Consult Rx Vancomycin Dosing) 1 each MISCELLANE DAILY PRN PRN Reason: Consult order Ropinirole HCl (Ropinirole Hcl 2 Mg Tablet) 2 mg PO BID [facility] Last Admin: 07/15/24 08:12 Dose: Not Given Sodium Chloride (0.9 % Sodium Chloride Flush 3 Ml Syringe) 3 ml IVFLUSH QSHIFT [facility] Last Admin: 07/15/24 08:00 Dose: Not Given Spironolactone (Spironolactone 25 Mg Tablet) 12.5 mg PO DAILY [facility]; Protocol Last Admin: 07/15/24 08:12 Dose: Not Given Home Medications ?Medication ?Instructions ?Recorded ?Confirmed ?Last Taken ?Type apixaban 5 mg tablet 5 mg PO BID 01/28/20 07/13/24 1 Day Ago History ~07/12/24 ropinirole 2 mg tablet 2 mg PO BID 08/04/21 07/13/24 1 Day Ago History ~07/12/24 diltiazem HCl 120 mg capsule,24 120 mg PO BEDTIME 02/01/22 07/13/24 1 Day Ago History hr,extended release ~07/12/24 furosemide 20 mg tablet 20 mg PO BID 02/01/23 07/13/24 1 Day Ago History ~07/12/24 fluticasone fur. 200 mcg-umeclid 1 ea inhalation DAILY 05/17/24 07/13/24 1 Day Ago History 62.5 mcg-vilant 25 mcg ~07/12/24 inhalat.powder (Trelegy Ellipta) pantoprazole 40 mg tablet,delayed 40 mg PO DAILY@0630 05/17/24 07/13/24 1 Day Ago History release ~07/12/24 Physical Exam 2 Vital Signs: Vital Signs: Last Vital Signs Temp 98.5 F 07/15/24 11:36 Pulse 113 H 07/15/24 11:36 Resp 20 07/15/24 11:36 BP 109/59 L 07/15/24 11:36 Pulse Ox 98 07/15/24 11:36 O2 Del Method Room Air 07/15/24 11:36 O2 Flow Rate 5 07/15/24 07:26 FiO2 96 07/14/24 03:00 Oxygen Flow Rate 2 07/12/24 17:03 BMI result Body Mass Index 21.5 Results Labs 07/15/24 08:56 07/15/24 08:56 Labs: Abnormal lab results 07/14/24 07/15/24 07/15/24 Range/Units 13:08 08:56 10:37 Hgb 13.7 L (14.0-18.0) g/dl MCHC 30.9 L (31.0-36.0) g/dl VBG pH 7.30 L (7.32-7.43) VBG HCO3 49 H (22-26) mmol/L Chloride 95 L (96-108) mmol/L Carbon Dioxide 39 H (22-29) mmol/L BUN 54 H (9-16) mg/dL Random Glucose 137 H (60-115) mg/dL B-Natriuretic Peptide 767 H 432 H (<100) pg/mL Short CBC 07/15/24 Range/Units 08:56 WBC 10.5 (4.8-10.8) X10*3/uL Hgb 13.7 L (14.0-18.0) g/dl Hct 44.4 (42.0-52.0) % Plt Count 170 (160-400) X10*3/uL BMP 07/15/24 08:56 Sodium 142 Potassium 4.6 Chloride 95 L Carbon Dioxide 39 H BUN 54 H Creatinine 1.35 Calcium 9.0 All other labs normal. Procedures Date of Service Date of Service: 07/15/24
[2024-07-15] MEDS: dilTIAZem HCL 50 MG/10 ML VIAL 20 MG IVPUSH (16:47)
[2024-07-15] MEDS: cefTRIAXone sodium 1 GM VIAL IVPUSH (16:48)
[2024-07-15] MEDS: 0.9 % Sodium Chloride Flush 3 ML SYRINGE IVFLUSH (16:48)
[2024-07-15] MEDS: vancomycin HCL 1,250 MG in 0.9 % Sodium Chloride 250 ML 166.67 MG IV (17:03)
[2024-07-15] MEDS: Acetaminophen 325 MG TABLET 650 MG PO (17:07)
[2024-07-15 17:53] LABS: ABG Base Excess 17.9 mmol/L; ABG HCO3 48 mmol/L (22-26); ABG pCO2 87 mmHg (32-45); ABG pH 7.34 (7.35-7.45); ABG pO2 62 mmHg (83-108)
[2024-07-15] MEDS: dilTIAZem HCL 125 MG in 0.9 % Sodium Chloride 100 ML 10 MG IVCONT (17:53)
--- NOTE | 2024-07-15 18:19 | PM.EVENT ---
Documented by User: Latasha Genao NP 07/15/24 18:25 Event Note Date of Service: 07/15/24 Event Note: Patient agitated and anxious with afib RVR, stating he cant breath. EKG, ABG and diltiazem drip ordered as well as a dose of valium for severe agitation (after ABG drawn) ABG 7.34/87/62/48, somewhat improved from morning VBG. Discussed with patient spouse re placing patient on Bipap for a short period of time to see if that will help PCO2, she agreed. RT placed pt on Bipap at around 6pm. Patient is DNR/DNI. Discussed with ICU attending. Will repeat ABG at 7pm, if not improved transfer to ICU for closer monitoring. I do not believe his would want him intubated if he does not improve from bipap. Time Spent With Patient Time: Total time managing care of this patient today ____ minutes. Documented by User: Sergio Gonzalez MD 07/16/24 12:42 Event Note Date of Service: 07/16/24
--- NOTE | 2024-07-15 19:16 | PC.NURSE ---
Pt confused this am more lethargic while awake pulling at lines, pulled IV out Vinnie Genao [employer] notified am po meds held. 1:1 at bedside for safety along with camera. IV meds given per order burgos cath with clear yellow urine no blood noted at this time. LS dim with exp/insp wheezes on 5L oxymask continues to c/o SOB with increased resp effort prn morphine given with good effect. Pt slept 2-3 hours late am into afternoon more awake and alert following only confused on date. Continues to be anxious agitated complaining of worsening SOB and difficulty breathing remains on oxymask at 5L satting low to mid 90's when removed desats to 80 quickly. HR late afternoon sustained 140-160's continues with anxiety/agiation increasing. Vinnie Genao notified. 20 mg IV push cardizem given with little effect. Providers on unit 5 mg IV valium given with good effect pt resting although remains tachypneic and diaphoretic. ABG completed patient placed on cardizem drip and bipap. 1:1 at bedside. Spouse at bedside agrees with plan as discussed with provider.
[2024-07-15 19:37] LABS: ABG Base Excess 16.2 mmol/L; ABG HCO3 45 mmol/L (22-26); ABG pCO2 74 mmHg (32-45); ABG pH 7.39 (7.35-7.45); ABG pO2 68 mmHg (83-108)
--- NOTE | 2024-07-15 20:06 | PM.EVENT ---
Event Note Date of Service: 07/15/24 Event Note: Noted repeat ABG. Discussed with ICU attending. Okay to keep on the floor off BiPAP. Will closely monitor Time Spent With Patient Time: Total time managing care of this patient today ____ minutes.
[2024-07-15] MEDS: Metoprolol Tartrate 5 MG/5 ML VIAL IVPUSH ×2 (20:18→23:29)
[2024-07-15] MEDS: Piperacillin Sodium/Tazobactam 3.375 GM in 0.9 % Sodium Chloride 50 ML IV (20:24)
[2024-07-15] MEDS: PHENobarb/Hyoscy/Atropine/Scop 10 ML ELIXIR PO (23:22)
[2024-07-15 23:54] LABS: ABG Refer to POC result
[2024-07-15 23:54] LABS: ABG Refer to POC result
[2024-07-16] VITALS (18 sets, daily range): BP systolic 96–140; BP diastolic 48–92; PULSE 90–143; RESP 16–26; TEMP 36.2–37; O2SAT 93–97
[2024-07-16 00:45] LABS: Venous Blood Gas Refer to POC result
[2024-07-16 00:46] LABS: VBG Base Excess 21.2 mmol/L; VBG HCO3 47 mmol/L (22-26); VBG pCO2 58 mmHg; VBG pH 7.51 (7.32-7.43); VBG pO2 147 mmHg
[2024-07-16] MEDS: Piperacillin Sodium/Tazobactam 3.375 GM in 0.9 % Sodium Chloride 50 ML IV ×4 (00:54→19:57)
[2024-07-16] MEDS: dilTIAZem HCL 125 MG in 0.9 % Sodium Chloride 100 ML 15 MG IVCONT ×3 (00:55→16:29)
[2024-07-16] MEDS: Morphine Sulfate 2 MG/ML CARTRIDGE 0.5 MG IVPUSH ×3 (05:39→22:12)
[2024-07-16] MEDS: methylPREDNISolone Sod Succ 40 MG/ML VIAL IVPUSH ×2 (07:35→19:57)
[2024-07-16] MEDS: Digoxin 0.5 MG/2 ML AMPUL 0.125 MG IVPUSH ×3 (07:35→19:57)
[2024-07-16] MEDS: 0.9 % Sodium Chloride Flush 3 ML SYRINGE IVFLUSH (07:36)
[2024-07-16 08:15] LABS: Hematocrit 38.3 % (42.0-52.0); Hemoglobin 12.5 g/dl (14.0-18.0); Mean Corpuscular HGB Conc 32.6 g/dl (31.0-36.0); Mean Corpuscular Hemoglobin 30.2 pg (27.0-33.0); Mean Corpuscular Volume 92.5 fL (80.0-98.0); Mean Platelet Volume 9.6 fL (9.4-12.4); Platelet Count 178 X10*3/uL (160-400); Red Blood Count 4.14 X10*6/uL (4.60-5.80); Red Cell Distribution Width 13.1 % (11.0-16.0); White Blood Count 9.2 X10*3/uL (4.8-10.8)
[2024-07-16] MEDS: rOPINIRole HCL 2 MG TABLET PO ×2 (08:15→19:58)
[2024-07-16] MEDS: Metoprolol Succinate ER 100 MG TAB.ER.24H PO (08:15)
[2024-07-16] MEDS: Apixaban 5 MG TABLET PO ×2 (08:15→19:59)
[2024-07-16] MEDS: Spironolactone 25 MG TABLET 12.5 MG PO (08:17)
[2024-07-16 08:28] LABS: Blood Urea Nitrogen 51 mg/dL (9-16); Creatinine Clr Calc Pharmacy 47.2; Estimated Glomerular Filt Rate > 60; Glucose Random 146 mg/dL (60-115)
[2024-07-16 08:34] LABS: B Type Natriuretic Peptide 272 pg/mL (<100)
[2024-07-16 08:35] LABS: Anion Gap 15 (12-20); Carbon Dioxide 38 mmol/L (22-29); Chloride 96 mmol/L (96-108); Potassium 4.8 mmol/L (3.3-5.1); Sodium 144 mmol/L (135-145)
--- NOTE | 2024-07-16 08:46 | HO.PM.IMPN ---
Subjective Subjective Date of Service: 07/16/24 Interval History: seen and examined this morning follow up for COPD exacerbation, pneumonia Placed on bipap for hypoxia more awake today but still with sob Review of Systems Review of Systems: Yes all other systems are reviewed and are negative Constitutional Constitutional: Denies chills and Denies fever(s) Cardiovascular Cardiovascular: Denies chest pain, Denies palpitations and Reports dyspnea Respiratory Respiratory: Reports cough and Reports dyspnea Gastrointestinal Gastrointestinal: Denies abdominal pain Endocrine Endocrine: Denies palpitations Physical Exam Vital Signs: Vital Signs: Last Vital Signs Temp 98.6 F 07/16/24 07:28 Pulse 136 H 07/16/24 07:28 Resp 26 H 07/16/24 07:51 BP 120/48 L 07/16/24 07:54 Pulse Ox 93 07/16/24 07:28 O2 Del Method Nasal Cannula, Ox ymask 07/16/24 07:28 O2 Flow Rate 5 07/16/24 07:28 FiO2 96 07/14/24 03:00 Oxygen Flow Rate 2 07/12/24 17:03 BMI result Body Mass Index 21.5 Appearing in no acute distress lung sounds rales and wheezing heart regular rate rhythm, clear S1, S2 positive bowel sounds, abdomen is soft, nontender neuro patient is alert Objective Data Active Medications Acetaminophen (Acetaminophen 325 Mg Tablet) 650 mg PO Q6H PRN PRN Reason: Pain, Mild 1-3,fever,headache Last Admin: 07/15/24 17:07 Dose: 650 mg Documented By: HAYDEE Acetaminophen (Acetaminophen Supp 650 Mg Supp.Rect) 650 mg NM Q6H PRN PRN Reason: Fever Last Admin: 07/14/24 18:18 Dose: 650 mg Documented By: HAYDEE Albuterol/Ipratropium (Albuterol/Iprat 2.5/0.5mg 3 Ml Ampul.Neb) 3 ml INHALE Q4H PRN PRN Reason: Shortness of Breath/Wheezing Albuterol/Ipratropium (Albuterol/Iprat 2.5/0.5mg 3 Ml Ampul.Neb) 3 ml INHALE RQ4H WHILE AWAKE [facility] [place] Last Admin: 07/16/24 07:51 Dose: Not Given Documented By: PRO Non-Admin Reason: Elevated Heart Rate Apixaban (Apixaban 5 Mg Tablet) 5 mg PO BID [facility] [place] Last Admin: 07/16/24 08:15 Dose: 5 mg Documented By: JEN Aspirin (Aspirin 81 Mg Tab.Chew) 81 mg PO DAILY [facility] [place] Last Admin: 07/15/24 08:11 Dose: Not Given Documented By: HAYDEE Non-Admin Reason: Patient Condition Contraindication Atorvastatin Calcium (Atorvastatin Calcium 40 Mg Tablet) 40 mg PO DAILY [facility] [place] Last Admin: 07/15/24 08:12 Dose: Not Given Documented By: HAYDEE Non-Admin Reason: Patient Condition Contraindication Benzonatate (Benzonatate 100 Mg Capsule) 100 mg PO TID PRN PRN Reason: Cough Calcium Carbonate (Calcium Carbonate 750 Mg Tab.Chew) 750 mg PO Q4H PRN PRN Reason: Heartburn Digoxin (Digoxin 0.5 Mg/2 Ml Ampul) 0.125 mg IVPUSH Q6H [facility] [place]; Protocol Stop: 07/16/24 19:31 Last Admin: 07/16/24 07:35 Dose: 0.125 mg Documented By: JEN Diltiazem HCl (Diltiazem Hcl Cd 240 Mg Cap.Er.Deg) 240 mg PO DAILY [facility] [place]; Protocol Last Admin: 07/15/24 08:12 Dose: Not Given Documented By: HAYDEE Non-Admin Reason: Patient Condition Contraindication Diltiazem HCl (Diltiazem Hcl Cd 240 Mg Cap.Er.Deg) 240 mg PO BEDTIME [facility] [place]; Protocol Last Admin: 07/15/24 20:24 Dose: Not Given Documented By: IVAN Non-Admin Reason: NPO Comments: BIPAP IN PLACE Furosemide (Furosemide 40 Mg/4 Ml Vial) 40 mg IVPUSH DAILY [facility] [place]; Protocol Gabapentin (Gabapentin 100 Mg Capsule) 100 mg PO TID [facility] [place] Last Admin: 07/15/24 20:25 Dose: Not Given Documented By: IVAN Non-Admin Reason: NPO Guaifenesin/Codeine Phosphate (Guaifen/Codeine Sf 200/20/10ml 10 Ml Liquid) 5 ml PO Q6H PRN PRN Reason: Cough Last Admin: 07/13/24 07:54 Dose: 5 ml Documented By: ROSIBEL Vancomycin HCl 1,250 mg/ (Sodium Chloride) 250 mls @ 166.667 mls/hr IV Q24H [facility] [place] Last Infusion: 07/15/24 19:42 Dose: Infused Documented By: IVAN Diltiazem HCl 125 mg/ Sodium (Chloride) 125 mls @ 0 mls/hr IVCONT .Q0M [facility] [place]; Protocol Last Admin: 07/16/24 00:55 Dose: 15 mg/hr, 15 mls/hr Documented By: IVAN Piperacillin Sod/Tazobactam (Sod 3.375 gm/ Sodium Chloride) 50 mls @ 100 mls/hr IV Q6H [facility] [place] Last Admin: 07/16/24 07:35 Dose: 100 mls/hr Documented By: JEN Magnesium Hydroxide (Milk Of Magnesia 30 Ml Oral.Susp) 30 ml PO DAILY PRN PRN Reason: Constipation Melatonin (Melatonin 3 Mg Tablet) 6 mg PO BEDTIME PRN PRN Reason: Insomnia Methylprednisolone Sodium Succinate (Methylprednisolone Sod Succ 40 Mg/Ml Vial) 40 mg IVPUSH Q12H [facility] [place] Last Admin: 07/16/24 07:35 Dose: 40 mg Documented By: JEN Metoprolol Succinate (Metoprolol Succinate Er 100 Mg Tab.Er.24h) 100 mg PO DAILY [facility] [place]; Protocol Last Admin: 07/16/24 08:15 Dose: 100 mg Documented By: JEN Morphine Sulfate (Morphine Sulfate 2 Mg/Ml Cartridge) 0.5 mg IVPUSH Q4H PRN; Protocol PRN Reason: tachypnea Last Admin: 07/16/24 05:39 Dose: 0.5 mg Documented By: IVAN Olanzapine (Olanzapine 10 Mg Vial) 5 mg IM DAILY PRN PRN Reason: agitation Omeprazole (Omeprazole 20 Mg Capsule.Dr) 20 mg PO DAILY@0630 [facility] [place] Last Admin: 07/16/24 05:42 Dose: Not Given Documented By: IVAN Non-Admin Reason: Patient Refused Ondansetron HCl (Ondansetron Hcl 4 Mg/2 Ml Vial) 4 mg IVPUSH Q8H PRN PRN Reason: Nausea and Vomiting Pharmacy Consult (Consult Rx Vancomycin Dosing) 1 each MISCELLANE DAILY PRN PRN Reason: Consult order Ropinirole HCl (Ropinirole Hcl 2 Mg Tablet) 2 mg PO BID [facility] [place] Last Admin: 07/16/24 08:15 Dose: 2 mg Documented By: JEN Sodium Chloride (0.9 % Sodium Chloride Flush 3 Ml Syringe) 3 ml IVFLUSH QSHIFT CARLOS Last Admin: 07/16/24 07:36 Dose: 3 ml Documented By: JEN Spironolactone (Spironolactone 25 Mg Tablet) 12.5 mg PO DAILY [facility] [place]; Protocol Last Admin: 07/16/24 08:17 Dose: 12.5 mg Documented By: JEN Labs 07/16/24 08:01 07/16/24 08:01 Labs: Laboratory Results - last 24 hr 07/15/24 07/15/24 07/15/24 08:56 10:37 17:48 MCV 96.3 MCH 29.7 MCHC 30.9 L RDW 12.9 Plt Count 170 MPV 9.6 Absolute Nucleated RBC 0.000 Nucleated RBC % (auto) 0.0 O2 Saturation 90.0 ABG pH at Pt Temp 7.34 L ABG pCO2 at Pt Temp 87 H* ABG pO2 at Pt Temp 62 L ABG HCO3 48 H ABG Base Excess (Actual) 17.9 VBG pH 7.30 L VBG pCO2 99 VBG pO2 28 VBG HCO3 49 H VBG O2 Saturation 33.0 VBG Base Excess 17.3 Anion Gap 13 Estim Creat Clear Calc 40.5 Estimated GFR 51 Random Glucose 137 H Calcium 9.0 B-Natriuretic Peptide 432 H 07/15/24 07/16/24 07/16/24 19:32 00:41 08:01 MCV 92.5 MCH 30.2 MCHC 32.6 RDW 13.1 Plt Count 178 MPV 9.6 Absolute Nucleated RBC 0.000 Nucleated RBC % (auto) 0.0 O2 Saturation 94.0 ABG pH at Pt Temp 7.39 ABG pCO2 at Pt Temp 74 H* ABG pO2 at Pt Temp 68 L ABG HCO3 45 H ABG Base Excess (Actual) 16.2 VBG pH 7.51 H VBG pCO2 58 VBG pO2 147 VBG HCO3 47 H VBG O2 Saturation 100.0 VBG Base Excess 21.2 Anion Gap 15 Estim Creat Clear Calc 47.2 Estimated GFR Random Glucose Calcium B-Natriuretic Peptide 07/16/24 07/16/24 08:01 08:01 MCV MCH MCHC RDW Plt Count MPV Absolute Nucleated RBC Nucleated RBC % (auto) O2 Saturation ABG pH at Pt Temp ABG pCO2 at Pt Temp ABG pO2 at Pt Temp ABG HCO3 ABG Base Excess (Actual) VBG pH VBG pCO2 VBG pO2 VBG HCO3 VBG O2 Saturation VBG Base Excess Anion Gap Estim Creat Clear Calc Cancelled Estimated GFR > 60 Cancelled Random Glucose 146 H Calcium 9.0 B-Natriuretic Peptide 272 H Assessment and Plan (1) Left-sided weakness: Status: Acute (2) COPD exacerbation: Status: Acute Plan 82-year-old male with pertinent history of chronic hypoxemic respiratory failure due to COPD on 2 L supplemental oxygen, chronic atrial fibrillation on anticoagulation, gastroesophageal reflux disease, mixed hyperlipidemia, congestive heart failure with preserved ejection fraction who presents to the emergency department for evaluation of dyspnea. Acute on chronic hypoxic respiratory failure with hypercarbia secondary to acute metabolic acidosis Placed on BiPAP yesterday which seemed to help his symptoms of lethargy and hypoxia ABG 7.34/87/62/48, repeat 7.51/58/147/47 Patient still has some work of breathing, on 5 L OxyMask Respiratory therapy attempted to place back on BiPAP the patient pulled off mask Venous Doppler ultrasound of lower extremities pending to assess for DVT V/Q pending to assess for pulmonary embolus as patient has been off anticoagulation due to hematuria but restarted Eliquis this morning Repeat chest CT 07/16 showing [id number] bilateral pleural effusions, enlarged right cardiac atria, enlarged pulmonary trunk, regular opacity in the right lower lobe Discussed with pulmonology>rec check the spot, sputum for AFB and culture (?GLADYS), avoid benzos or opiates secondary to worsening hypercapnia, CPT with Acapella, doubt PE but keep on Eliquis Atrial fibrillation with RVR likely due to missing medications and COPD exacerbation metoprolol, Cardizem 240 am and increased to 240 in pm Patient given IV Cardizem yesterday x2 then started on Cardizem drip Patient is still with elevated heart rate, started digoxin load Cardiology consultation Restarted Eliquis as hematuria has resolved Congestive heart failure with preserved EF. Resolved BNP peaked at 869 On Lasix 40 mg daily follow I&O closely Sepsis and acute on chronic respiratory failure due to right-sided pneumonia and COPD exacerbation Sepsis resolved s/p IV ceftriaxone and azithromycin Scheduled and p.r.n. DuoNebs systemic steroids. on baseline home O2 2 L, titrate as needed noted hypoxia 07/14 >Repeat CXR 07/14 showing multifocal bilateral pulmonary opacities mildly worsening Changed antibiotics to vancomycin and Zosyn Encepalopathy likely hospital delirium worse overnight requiring zyprexa and valium Hematuria. Resolved s/p cbi urology following Hyperkalemia. 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 Discussed with patient at bedside Quality Stroke Does the patient have a stroke diagnosis?: No VTE Prior VTE?: No VTE Risk Level:: Medical - moderate - high VTE Device Contraindication: Treatment Not Indicated VTE Drug Contraindication: N/A - Med Ordered
[2024-07-16] MEDS: Furosemide 40 MG/4 ML VIAL IVPUSH (09:40)
[2024-07-16] MEDS: Atorvastatin Calcium 40 MG TABLET PO (09:41)
[2024-07-16] MEDS: Aspirin 81 MG TAB.CHEW PO (09:42)
[2024-07-16] MEDS: Gabapentin 100 MG CAPSULE PO (09:42)
[2024-07-16] MEDS: Opium/Belladonna 60/16.2 mg SUPP.RECT 1 SUPP PR ×2 (09:47→18:05)
[2024-07-16] MEDS: Albuterol/Iprat 2.5/0.5MG 3 ML AMPUL.NEB INHALE ×3 (11:17→19:38)
--- NOTE | 2024-07-16 12:45 | P.CONPL_ITS ---
History of Present Illness History of Present Illness Consult date: 07/16/24 Chief complaint: dyspnea Narrative: This is an inpt pulmonary consulttion. This is a 84 year-old male with pertinent history of chronic hypoxemic respiratory failure due to COPD on 2 L supplemental oxygen, chronic atrial fibrillation on anticoagulation, gastroesophageal reflux disease, mixed hyperlipidemia, congestive heart failure with preserved ejection fraction who presents to the emergency department for evaluation of dyspnea. Patient states his symptoms started 3 days prior to presentation. He has having shortness of breath which is worse with exertion. Also has associated purulent cough. Does have wheezing not relieve with home inhaler. Denies dyspnea or PND. Does have leg swelling but it is chronic as per the patient. No known fever, chills, chest pain, palpitations, abdominal pain, changes in urinary or bowel habits. In the emergency department, as per ER provider, patient had sudden onset of left-sided upper and lower extremity weakness. Stroke protocol was called and patient underwent CT head and CT angio head and neck. Neurology was consulted who requested admission with aspirin. Patient states his left- sided weakness has improved at the time of my evaluation. He had a blood gas with acute on chronic respiratory acidosis and placed on BIPAP with good result. HE had an ECHO with severe right ventricle dilation and right sided heart failure. 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 Review of Systems 2 Constitutional: Constitutional: Reports fatigue, Reports malaise and Reports weakness Cardiovascular: Cardiovascular: Reports dyspnea on exertion Respiratory: Respiratory: Reports cough, Reports dyspnea on exertion and Reports wheezing Gastrointestinal: Gastrointestinal: Reports no additional gastrointestinal complaints Genitourinary: Genitourinary: Reports no additional male genitourinary complaints Neurologic: Reports weakness Endocrine: Endocrine: Reports fatigue Allergic/Immunologic: Allergic/Immunologic: Reports wheezing PMFSH Past Medical History Medical History (Updated 07/16/24 @ 12:50 by Jayy Genao MD) Acute on chronic respiratory failure with hypoxia and hypercapnia Pulmonary nodules Bronchiectasis Right-sided heart failure Cor pulmonale COPD (chronic obstructive pulmonary disease) Elevated brain natriuretic peptide (BNP) level Pneumonia Pneumonia COPD (chronic obstructive pulmonary disease) with emphysema Chronic atrial fibrillation HTN (hypertension) Bilateral carotid artery disease Hyperlipidemia History of cardiomyopathy COPD (chronic obstructive pulmonary disease) History of cardioversion Family History Family History Father Stroke CVD (cardiovascular disease) Mother Colon cancer Diabetes Sister Diabetes COPD (chronic obstructive pulmonary disease) Breast cancer Surgical History Surgical History History of tonsillectomy and adenoidectomy Hx of colonoscopy Hx of cardiac cath Social History Social History Household Members: Spouse Housing: House Do you presently have visiting nurse or other home services: No Alcohol intake: former Comment: sitter at bedside Patient Tobacco Use Status: Former Tobacco user Tobacco use type: Cigarette Second Hand Smoke Exposure: No Advance Directives Date on File: 06/11/21 service: No 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al status: retired 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 Cognitive needs: No Hearing needs: No Vision needs: Yes (rx glasses) Meds Allergies Allergy/AdvReac Type Severity Reaction Status Date / Time No Known Allergies Allergy Unknown UNKNOWN Verified 07/12/24 17:05 [NO KNOWN ALLERGIES] Active Medications: Current Medications Acetaminophen (Acetaminophen 325 Mg Tablet) 650 mg PO Q6H PRN PRN Reason: Pain, Mild 1-3,fever,headache Last Admin: 07/15/24 17:07 Dose: 650 mg Acetaminophen (Acetaminophen Supp 650 Mg Supp.Rect) 650 mg KS Q6H PRN PRN Reason: Fever Last Admin: 07/14/24 18:18 Dose: 650 mg Albuterol/Ipratropium (Albuterol/Iprat 2.5/0.5mg 3 Ml Ampul.Neb) 3 ml INHALE Q4H PRN PRN Reason: Shortness of Breath/Wheezing Last Admin: 07/16/24 11:17 Dose: 3 ml Albuterol/Ipratropium (Albuterol/Iprat 2.5/0.5mg 3 Ml Ampul.Neb) 3 ml INHALE RQ4H WHILE AWAKE CARLOS Last Admin: 07/16/24 11:27 Dose: 3 ml Apixaban (Apixaban 5 Mg Tablet) 5 mg PO BID CARLOS Last Admin: 07/16/24 08:15 Dose: 5 mg Aspirin (Aspirin 81 Mg Tab.Chew) 81 mg PO DAILY CARLOS Last Admin: 07/16/24 09:42 Dose: 81 mg Atorvastatin Calcium (Atorvastatin Calcium 40 Mg Tablet) 40 mg PO DAILY [facility] Last Admin: 07/16/24 09:41 Dose: 40 mg Belladonna Alkaloids/Opium (Opium/Belladonna 60/16.2 Mg Supp.Rect) 1 supp KS BID PRN PRN Reason: bladder spasms Last Admin: 07/16/24 09:47 Dose: 1 supp Benzonatate (Benzonatate 100 Mg Capsule) 100 mg PO TID PRN PRN Reason: Cough Calcium Carbonate (Calcium Carbonate 750 Mg Tab.Chew) 750 mg PO Q4H PRN PRN Reason: Heartburn Digoxin (Digoxin 0.5 Mg/2 Ml Ampul) 0.125 mg IVPUSH Q6H CARLOS; Protocol Stop: 07/16/24 19:31 Last Admin: 07/16/24 07:35 Dose: 0.125 mg Diltiazem HCl (Diltiazem Hcl Cd 240 Mg Cap.Er.Deg) 240 mg PO DAILY [facility]; Protocol Last Admin: 07/16/24 09:42 Dose: Not Given Diltiazem HCl (Diltiazem Hcl Cd 240 Mg Cap.Er.Deg) 240 mg PO BEDTIME [facility]; Protocol Last Admin: 07/15/24 20:24 Dose: Not Given Furosemide (Furosemide 40 Mg/4 Ml Vial) 40 mg IVPUSH DAILY [facility]; Protocol Last Admin: 07/16/24 09:40 Dose: 40 mg Gabapentin (Gabapentin 100 Mg Capsule) 100 mg PO TID [facility]OS Last Admin: 07/16/24 09:42 Dose: 100 mg Guaifenesin/Codeine Phosphate (Guaifen/Codeine Sf 200/20/10ml 10 Ml Liquid) 5 ml PO Q6H PRN PRN Reason: Cough Last Admin: 07/13/24 07:54 Dose: 5 ml Vancomycin HCl 1,250 mg/ (Sodium Chloride) 250 mls @ 166.667 mls/hr IV Q24H [facility] Last Infusion: 07/15/24 19:42 Dose: Infused Diltiazem HCl 125 mg/ Sodium (Chloride) 125 mls @ 0 mls/hr IVCONT .Q0M [facility]; Protocol Last Admin: 07/16/24 09:12 Dose: 15 mg/hr, 15 mls/hr Piperacillin Sod/Tazobactam (Sod 3.375 gm/ Sodium Chloride) 50 mls @ 100 mls/hr IV Q6H [facility] Last Infusion: 07/16/24 10:21 Dose: Infused Magnesium Hydroxide (Milk Of Magnesia 30 Ml Oral.Susp) 30 ml PO DAILY PRN PRN Reason: Constipation Melatonin (Melatonin 3 Mg Tablet) 6 mg PO BEDTIME PRN PRN Reason: Insomnia Methylprednisolone Sodium Succinate (Methylprednisolone Sod Succ 40 Mg/Ml Vial) 40 mg IVPUSH Q12H [facility] Last Admin: 07/16/24 07:35 Dose: 40 mg Metoprolol Succinate (Metoprolol Succinate Er 100 Mg Tab.Er.24h) 100 mg PO DAILY [facility]; Protocol Last Admin: 07/16/24 08:15 Dose: 100 mg Morphine Sulfate (Morphine Sulfate 2 Mg/Ml Cartridge) 0.5 mg IVPUSH Q4H PRN; Protocol PRN Reason: tachypnea Last Admin: 07/16/24 09:40 Dose: 0.5 mg Olanzapine (Olanzapine 10 Mg Vial) 5 mg IM DAILY PRN PRN Reason: agitation Omeprazole (Omeprazole 20 Mg Capsule.Dr) 20 mg PO DAILY@0630 [facility] Last Admin: 07/16/24 05:42 Dose: Not Given Ondansetron HCl (Ondansetron Hcl 4 Mg/2 Ml Vial) 4 mg IVPUSH Q8H PRN PRN Reason: Nausea and Vomiting Pharmacy Consult (Consult Rx Vancomycin Dosing) 1 each MISCELLANE DAILY PRN PRN Reason: Consult order Ropinirole HCl (Ropinirole Hcl 2 Mg Tablet) 2 mg PO BID [facility] Last Admin: 07/16/24 08:15 Dose: 2 mg Sodium Chloride (0.9 % Sodium Chloride Flush 3 Ml Syringe) 3 ml IVFLUSH QSHIFT [facility] Last Admin: 07/16/24 07:36 Dose: 3 ml Spironolactone (Spironolactone 25 Mg Tablet) 12.5 mg PO DAILY [facility]; Protocol Last Admin: 07/16/24 08:17 Dose: 12.5 mg Home Medications ?Medication ?Instructions ?Recorded ?Confirmed ?Last Taken ?Type apixaban 5 mg tablet 5 mg PO BID 01/28/20 07/13/24 1 Day Ago History ~07/12/24 ropinirole 2 mg tablet 2 mg PO BID 08/04/21 07/13/24 1 Day Ago History ~07/12/24 diltiazem HCl 120 mg capsule,24 120 mg PO BEDTIME 02/01/22 07/13/24 1 Day Ago History hr,extended release ~07/12/24 furosemide 20 mg tablet 20 mg PO BID 02/01/23 07/13/24 1 Day Ago History ~07/12/24 fluticasone fur. 200 mcg-umeclid 1 ea inhalation DAILY 05/17/24 07/13/24 1 Day Ago History 62.5 mcg-vilant 25 mcg ~07/12/24 inhalat.powder (Trelegy Ellipta) pantoprazole 40 mg tablet,delayed 40 mg PO DAILY@0630 05/17/24 07/13/24 1 Day Ago History release ~07/12/24 Physical Exam 2 Vital Signs: Vital Signs: Last Vital Signs Temp 97.6 F 07/16/24 11:40 Pulse 125 H 07/16/24 11:40 Resp 18 07/16/24 11:40 BP 96/64 07/16/24 11:40 Pulse Ox 97 07/16/24 11:40 O2 Del Method Oxymask 07/16/24 11:40 O2 Flow Rate 4 07/16/24 11:40 FiO2 96 07/14/24 03:00 Oxygen Flow Rate 2 07/12/24 17:03 BMI result Body Mass Index 21.5 Appearing in no acute distress lung sounds rales and wheezing heart regular rate rhythm, clear S1, S2 positive bowel sounds, abdomen is soft, nontender neuro patient is alert Results Laboratory Findings 07/16/24 08:01 07/16/24 08:01 ABG, PT/INR, D-dimer: PT/INR, D-dimer PT 20.7 SEC (10.9-12.4) H D 07/12/24 17:21 INR 1.8 (0.9-1.1) H 07/12/24 17:21 Abnormal lab findings: Abnormal Labs 07/12/24 07/12/24 07/12/24 17:21 17:22 17:30 WBC 12.1 H RBC Hgb Hct MCHC MPV 9.0 L Immature Gran % (Auto) Neut % (Auto) 78.3 H Lymph % (Auto) 8.5 L Cole % (Auto) 11.9 H Lymph # (Auto) 1.0 L Cole # (Auto) 1.4 H Abs Immat Gran (auto) 0.04 H Absolute Neuts (auto) 9.4 H PT 20.7 H D INR 1.8 H ABG pH at Pt Temp ABG pCO2 at Pt Temp ABG pO2 at Pt Temp ABG HCO3 VBG pH VBG HCO3 40 H Potassium Chloride Carbon Dioxide BUN POC Glucose Random Glucose Lactic Acid 2.1 H* Alkaline Phosphatase B-Natriuretic Peptide 249 H HDL Cholesterol 07/12/24 07/13/24 07/13/24 17:54 04:34 20:48 WBC RBC 4.43 L Hgb 13.4 L Hct 40.6 L MCHC MPV 9.2 L Immature Gran % (Auto) 0.5 H Neut % (Auto) 93.2 H Lymph % (Auto) 4.2 L Cole % (Auto) 1.9 L Lymph # (Auto) 0.2 L Cole # (Auto) Abs Immat Gran (auto) Absolute Neuts (auto) PT INR ABG pH at Pt Temp ABG pCO2 at Pt Temp ABG pO2 at Pt Temp ABG HCO3 VBG pH VBG HCO3 Potassium Chloride 95 L 93 L Carbon Dioxide 34 H 33 H BUN 22 H 25 H POC Glucose Random Glucose 120 H 149 H Lactic Acid Alkaline Phosphatase 125 H B-Natriuretic Peptide 869 H HDL Cholesterol 38 L 07/13/24 07/13/24 07/14/24 20:53 23:19 12:29 WBC 14.2 H RBC Hgb Hct MCHC MPV 9.2 L Immature Gran % (Auto) Neut % (Auto) Lymph % (Auto) Cole % (Auto) Lymph # (Auto) Cole # (Auto) Abs Immat Gran (auto) Absolute Neuts (auto) PT INR ABG pH at Pt Temp ABG pCO2 at Pt Temp ABG pO2 at Pt Temp ABG HCO3 VBG pH 7.45 H VBG HCO3 31 H Potassium 5.7 H D Chloride 93 L Carbon Dioxide 34 H BUN 42 H POC Glucose 129 H Random Glucose 151 H Lactic Acid Alkaline Phosphatase B-Natriuretic Peptide HDL Cholesterol 07/14/24 07/15/24 07/15/24 13:08 08:56 10:37 WBC RBC Hgb 13.7 L Hct MCHC 30.9 L MPV Immature Gran % (Auto) Neut % (Auto) Lymph % (Auto) Cole % (Auto) Lymph # (Auto) Cole # (Auto) Abs Immat Gran (auto) Absolute Neuts (auto) PT INR ABG pH at Pt Temp ABG pCO2 at Pt Temp ABG pO2 at Pt Temp ABG HCO3 VBG pH 7.30 L VBG HCO3 49 H Potassium Chloride 95 L Carbon Dioxide 39 H BUN 54 H POC Glucose Random Glucose 137 H Lactic Acid Alkaline Phosphatase B-Natriuretic Peptide 767 H 432 H HDL Cholesterol 07/15/24 07/15/24 07/16/24 17:48 19:32 00:41 WBC RBC Hgb Hct MCHC MPV Immature Gran % (Auto) Neut % (Auto) Lymph % (Auto) Cole % (Auto) Lymph # (Auto) Cole # (Auto) Abs Immat Gran (auto) Absolute Neuts (auto) PT INR ABG pH at Pt Temp 7.34 L ABG pCO2 at Pt Temp 87 H* 74 H* ABG pO2 at Pt Temp 62 L 68 L ABG HCO3 48 H 45 H VBG pH 7.51 H VBG HCO3 47 H Potassium Chloride Carbon Dioxide BUN POC Glucose Random Glucose Lactic Acid Alkaline Phosphatase B-Natriuretic Peptide HDL Cholesterol 07/16/24 08:01 WBC RBC 4.14 L Hgb 12.5 L Hct 38.3 L MCHC MPV Immature Gran % (Auto) Neut % (Auto) Lymph % (Auto) Cole % (Auto) Lymph # (Auto) Cole # (Auto) Abs Immat Gran (auto) Absolute Neuts (auto) PT INR ABG pH at Pt Temp ABG pCO2 at Pt Temp ABG pO2 at Pt Temp ABG HCO3 VBG pH VBG HCO3 Potassium Chloride Carbon Dioxide 38 H BUN 51 H POC Glucose Random Glucose 146 H Lactic Acid Alkaline Phosphatase B-Natriuretic Peptide 272 H HDL Cholesterol Microbiology: Microbiology 07/12/24 17:21 Blood - Venous Blood Culture - Preliminary No growth after 48 hours. 07/12/24 17:23 Blood - Venous Blood Culture - Preliminary No growth after 48 hours. Assessment and Plan (1) COPD exacerbation: Status: Acute (2) Cor pulmonale: Status: Acute (3) Right-sided heart failure: Qualifiers: Heart failure chronicity: acute on chronic Qualified Code(s): I50.813 - Acute on chronic right heart failure Status: Acute (4) Bronchiectasis: Qualifiers: Bronchiectasis type: with acute lower respiratory infection Qualified Code(s): J47.0 - Bronchiectasis with acute lower respiratory infection Status: Acute (5) Pulmonary nodules: Status: Acute (6) Acute on chronic respiratory failure with hypoxia and hypercapnia: Status: Acute Plan REC: -TSpot -sputum for AFB and cx -continue abx therapy -avoid benzos or opiods due to risk of worsening hypercapnea -respiratory therapy -diuresis as tolerated -oxygen to keep pox>90% -benifits from BIPAP at night. In order for him to get a BIPAP at night he may need to do an inlab sleep study once he is discharge. -CPT with acapella valve -doubt PE, would just keep on Eliquis as lung as he does not have any minor or major bleeding -Goals of care, DNR Procedures Date of Service Date of Service: 07/16/24
[2024-07-16] MEDS: vancomycin HCL 1,250 MG in 0.9 % Sodium Chloride 250 ML 166.67 MG IV (16:23)
--- NOTE | 2024-07-16 17:14 | P.CONCA_ITS ---
History of Present Illness History of Present Illness Date of Service: 07/16/24 Requesting physician: Latasha Genao Chief complaint: dyspnea Narrative: [age] gentleman who has background history chronic atrial fib on him and metoprolol succinate, heart failure with preserved ejection fraction, pulmonary hypertension, severe RV dilation with normal RV function based on echocardiography from June 2024. He is presenting with shortness of breath and is being treated as multifocal pneumonia. He has chronic atrial fibrillation and is currently being treated with rate control strategy and had significant tachycardia on admission. He is quite sleepy currently and was sleeping during the whole interview. The gave most of the history. It appears he has been getting more short of breath and his visiting nurse advised him to come to the emergency department for concern of pneumonia. His imaging has shown multifocal infiltrates and he is on antibiotics currently he also was found to have small pleural effusions on imaging along with concern for pulmonary hypertension. [facility] Past Medical History Medical History (Updated 07/16/24 @ 12:50 by Jayy Genao MD) Acute on chronic respiratory failure with hypoxia and hypercapnia Pulmonary nodules Bronchiectasis Right-sided heart failure Cor pulmonale COPD (chronic obstructive pulmonary disease) Elevated brain natriuretic peptide (BNP) level Pneumonia Pneumonia COPD (chronic obstructive pulmonary disease) with emphysema Chronic atrial fibrillation HTN (hypertension) Bilateral carotid artery disease Hyperlipidemia History of cardiomyopathy COPD (chronic obstructive pulmonary disease) History of cardioversion Family History Family History Father Stroke CVD (cardiovascular disease) Mother Colon cancer Diabetes Sister Diabetes COPD (chronic obstructive pulmonary disease) Breast cancer Surgical History Surgical History History of tonsillectomy and adenoidectomy Hx of colonoscopy Hx of cardiac cath Social History Social History Household Members: Spouse Housing: House Do you presently have visiting nurse or other home services: No Alcohol intake: former Comment: sitter at bedside Patient Tobacco Use Status: Former Tobacco user Tobacco use type: Cigarette Second Hand Smoke Exposure: No Advance Directives Date on File: 06/11/21 service: No 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al status: retired 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 Cognitive needs: No Hearing needs: No Vision needs: Yes (rx glasses) Meds Allergies Allergy/AdvReac Type Severity Reaction Status Date / Time No Known Allergies Allergy Unknown UNKNOWN Verified 07/12/24 17:05 [NO KNOWN ALLERGIES] Active Medications: Current Medications Acetaminophen (Acetaminophen 325 Mg Tablet) 650 mg PO Q6H PRN PRN Reason: Pain, Mild 1-3,fever,headache Last Admin: 07/15/24 17:07 Dose: 650 mg Acetaminophen (Acetaminophen Supp 650 Mg Supp.Rect) 650 mg [place] Q6H PRN PRN Reason: Fever Last Admin: 07/14/24 18:18 Dose: 650 mg Albuterol/Ipratropium (Albuterol/Iprat 2.5/0.5mg 3 Ml Ampul.Neb) 3 ml INHALE Q4H PRN PRN Reason: Shortness of Breath/Wheezing Last Admin: 07/16/24 11:17 Dose: 3 ml Albuterol/Ipratropium (Albuterol/Iprat 2.5/0.5mg 3 Ml Ampul.Neb) 3 ml INHALE RQ4H WHILE AWAKE [facility] Last Admin: 07/16/24 15:35 Dose: Not Given Apixaban (Apixaban 5 Mg Tablet) 5 mg PO BID [facility] Last Admin: 07/16/24 08:15 Dose: 5 mg Aspirin (Aspirin 81 Mg Tab.Chew) 81 mg PO DAILY [facility] Last Admin: 07/16/24 09:42 Dose: 81 mg Atorvastatin Calcium (Atorvastatin Calcium 40 Mg Tablet) 40 mg PO DAILY [facility] Last Admin: 07/16/24 09:41 Dose: 40 mg Belladonna Alkaloids/Opium (Opium/Belladonna 60/16.2 Mg Supp.Rect) 1 supp IL BID PRN PRN Reason: bladder spasms Last Admin: 07/16/24 09:47 Dose: 1 supp Benzonatate (Benzonatate 100 Mg Capsule) 100 mg PO TID PRN PRN Reason: Cough Calcium Carbonate (Calcium Carbonate 750 Mg Tab.Chew) 750 mg PO Q4H PRN PRN Reason: Heartburn Digoxin (Digoxin 0.5 Mg/2 Ml Ampul) 0.125 mg IVPUSH Q6H [facility]; Protocol Stop: 07/16/24 19:31 Last Admin: 07/16/24 13:33 Dose: 0.125 mg Diltiazem HCl (Diltiazem Hcl Cd 240 Mg Cap.Er.Deg) 240 mg PO DAILY [facility]; Protocol Last Admin: 07/16/24 09:42 Dose: Not Given Diltiazem HCl (Diltiazem Hcl Cd 240 Mg Cap.Er.Deg) 240 mg PO BEDTIME [facility]; Protocol Last Admin: 07/15/24 20:24 Dose: Not Given Furosemide (Furosemide 40 Mg/4 Ml Vial) 40 mg IVPUSH DAILY [facility]; Protocol Last Admin: 07/16/24 09:40 Dose: 40 mg Gabapentin (Gabapentin 100 Mg Capsule) 100 mg PO TID [facility] Last Admin: 07/16/24 15:21 Dose: Not Given Guaifenesin/Codeine Phosphate (Guaifen/Codeine Sf 200/20/10ml 10 Ml Liquid) 5 ml PO Q6H PRN PRN Reason: Cough Last Admin: 07/13/24 07:54 Dose: 5 ml Vancomycin HCl 1,250 mg/ (Sodium Chloride) 250 mls @ 166.667 mls/hr IV Q24H [facility] Last Admin: 07/16/24 16:23 Dose: 166.67 mls/hr Diltiazem HCl 125 mg/ Sodium (Chloride) 125 mls @ 0 mls/hr IVCONT .Q0M [facility]; Protocol Last Admin: 07/16/24 16:29 Dose: 15 mg/hr, 15 mls/hr Piperacillin Sod/Tazobactam (Sod 3.375 gm/ Sodium Chloride) 50 mls @ 100 mls/hr IV Q6H [facility] Last Infusion: 07/16/24 15:21 Dose: Infused Magnesium Hydroxide (Milk Of Magnesia 30 Ml Oral.Susp) 30 ml PO DAILY PRN PRN Reason: Constipation Melatonin (Melatonin 3 Mg Tablet) 6 mg PO BEDTIME PRN PRN Reason: Insomnia Methylprednisolone Sodium Succinate (Methylprednisolone Sod Succ 40 Mg/Ml Vial) 40 mg IVPUSH Q12H [facility] Last Admin: 07/16/24 07:35 Dose: 40 mg Metoprolol Succinate (Metoprolol Succinate Er 100 Mg Tab.Er.24h) 100 mg PO DAILY [facility]; Protocol Last Admin: 07/16/24 08:15 Dose: 100 mg Morphine Sulfate (Morphine Sulfate 2 Mg/Ml Cartridge) 0.5 mg IVPUSH Q4H PRN; Protocol PRN Reason: tachypnea Last Admin: 07/16/24 09:40 Dose: 0.5 mg Olanzapine (Olanzapine 10 Mg Vial) 5 mg IM DAILY PRN PRN Reason: agitation Omeprazole (Omeprazole 20 Mg Capsule.Dr) 20 mg PO DAILY@629 [facility] Last Admin: 07/16/24 05:42 Dose: Not Given Ondansetron HCl (Ondansetron Hcl 4 Mg/2 Ml Vial) 4 mg IVPUSH Q8H PRN PRN Reason: Nausea and Vomiting Pharmacy Consult (Consult Rx Vancomycin Dosing) 1 each MISCELLANE DAILY PRN PRN Reason: Consult order Ropinirole HCl (Ropinirole Hcl 2 Mg Tablet) 2 mg PO BID [facility] Last Admin: 07/16/24 08:15 Dose: 2 mg Sodium Chloride (0.9 % Sodium Chloride Flush 3 Ml Syringe) 3 ml IVFLUSH QSHIFT [facility] Last Admin: 07/16/24 07:36 Dose: 3 ml Spironolactone (Spironolactone 25 Mg Tablet) 12.5 mg PO DAILY [facility]; Protocol Last Admin: 07/16/24 08:17 Dose: 12.5 mg Home Medications ?Medication ?Instructions ?Recorded ?Confirmed ?Last Taken ?Type apixaban 5 mg tablet 5 mg PO BID 01/28/20 07/13/24 1 Day Ago History ~07/12/24 ropinirole 2 mg tablet 2 mg PO BID 08/04/21 07/13/24 1 Day Ago History ~07/12/24 diltiazem HCl 120 mg capsule,24 120 mg PO BEDTIME 02/01/22 07/13/24 1 Day Ago History hr,extended release ~07/12/24 furosemide 20 mg tablet 20 mg PO BID 02/01/23 07/13/24 1 Day Ago History ~07/12/24 fluticasone fur. 200 mcg-umeclid 1 ea inhalation DAILY 05/17/24 07/13/24 1 Day Ago History 62.5 mcg-vilant 25 mcg ~07/12/24 inhalat.powder (Trelegy Ellipta) pantoprazole 40 mg tablet,delayed 40 mg PO DAILY@0630 05/17/24 07/13/24 1 Day Ago History release ~07/12/24 Physical Exam 2 Vital Signs: Vital Signs: Last Vital Signs Temp 97.1 F 07/16/24 16:00 Pulse 90 07/16/24 16:00 Resp 18 07/16/24 16:00 BP 104/59 L 07/16/24 16:00 Pulse Ox 97 07/16/24 16:00 O2 Del Method Oxymask 07/16/24 16:00 O2 Flow Rate 4 07/16/24 16:00 FiO2 96 07/14/24 03:00 Oxygen Flow Rate 2 07/12/24 17:03 BMI result Body Mass Index 21.5 GENERAL APPEARANCE: On facemask, sleeping. On supplemental oxygen. NECK: no carotid bruit, no jugular venous distention. SKIN: no suspicious lesions, warm and dry. HEART: no murmurs, irregular rate and rhythm. LUNGS: clear to auscultation bilaterally. ABDOMEN: soft. EXTREMITIES: no edema. PERIPHERAL PULSES: equal. NEUROLOGIC: Currently sleeping. Objective Labs and Meds 07/16/24 08:01 07/16/24 08:01 Lab results: Laboratory Results - last 24 hr 07/15/24 07/15/24 07/16/24 17:48 19:32 00:41 WBC RBC Hgb Hct MCV MCH MCHC RDW Plt Count MPV Absolute Nucleated RBC Nucleated RBC % (auto) O2 Saturation 90.0 94.0 ABG pH at Pt Temp 7.34 L 7.39 ABG pCO2 at Pt Temp 87 H* 74 H* ABG pO2 at Pt Temp 62 L 68 L ABG HCO3 48 H 45 H ABG Base Excess (Actual) 17.9 16.2 VBG pH 7.51 H VBG pCO2 58 VBG pO2 147 VBG HCO3 47 H VBG O2 Saturation 100.0 VBG Base Excess 21.2 Sodium Potassium Chloride Carbon Dioxide Anion Gap BUN Creatinine Estim Creat Clear Calc Estimated GFR Random Glucose Calcium B-Natriuretic Peptide TB Test (T-Spot) Com TB Test Nil Control TB Test Panel A TB Test Panel B TB Test Positive Cntrl 07/16/24 07/16/24 07/16/24 08:01 08:01 08:01 WBC 9.2 RBC 4.14 L Hgb 12.5 L Hct 38.3 L MCV 92.5 MCH 30.2 MCHC 32.6 RDW 13.1 Plt Count 178 MPV 9.6 Absolute Nucleated RBC 0.000 Nucleated RBC % (auto) 0.0 O2 Saturation ABG pH at Pt Temp ABG pCO2 at Pt Temp ABG pO2 at Pt Temp ABG HCO3 ABG Base Excess (Actual) VBG pH VBG pCO2 VBG pO2 VBG HCO3 VBG O2 Saturation VBG Base Excess Sodium 144 Potassium 4.8 Chloride 96 Carbon Dioxide 38 H Anion Gap 15 BUN 51 H Creatinine 1.16 Cancelled Estim Creat Clear Calc 47.2 Cancelled Estimated GFR > 60 Random Glucose Calcium B-Natriuretic Peptide TB Test (T-Spot) Com TB Test Nil Control TB Test Panel A TB Test Panel B TB Test Positive Cntrl 07/16/24 07/16/24 08:01 12:19 WBC RBC Hgb Hct MCV MCH MCHC RDW Plt Count MPV Absolute Nucleated RBC Nucleated RBC % (auto) O2 Saturation ABG pH at Pt Temp ABG pCO2 at Pt Temp ABG pO2 at Pt Temp ABG HCO3 ABG Base Excess (Actual) VBG pH VBG pCO2 VBG pO2 VBG HCO3 VBG O2 Saturation VBG Base Excess Sodium Potassium Chloride Carbon Dioxide Anion Gap BUN Creatinine Estim Creat Clear Calc Estimated GFR Cancelled Random Glucose 146 H Calcium 9.0 B-Natriuretic Peptide 272 H TB Test (T-Spot) Com Cancelled TB Test Nil Control Cancelled TB Test Panel A Cancelled TB Test Panel B Cancelled TB Test Positive Cntrl Cancelled Assessment and Plan (1) Acute on chronic respiratory failure with hypoxia and hypercapnia: Status: Acute (2) Right-sided heart failure: Qualifiers: Heart failure chronicity: acute on chronic Qualified Code(s): I50.813 - Acute on chronic right heart failure Status: Acute (3) Chronic atrial fibrillation: Status: Acute Plan [age] year gentleman presenting with shortness of breath and multifocal infiltrates with concern for pneumonia. He has background of COPD, cor pulmonale/pulmonary hypertension and chronic atrial fibrillation. Clinically does not appear to be volume overloaded. Continue IV antibiotics. Can change to oral diuretics. Start him on 40 mg of Lasix daily. Heart rates were difficult to control in the setting of multifocal infiltrates and pneumonia but overall improving currently. He was given some digoxin on admission 2. He is on Cardizem 240 mg in the morning and 120 in the night along with Toprol-XL. I think same medications should be continued for now. In general Cardizem use should be limited with RV dysfunction but currently he has difficult to control atrial fibrillation but as he starts improving I think we should cut back on the dose because high dose also puts him at higher risk of bleeding. Thank you for allowing me to participate in the care of your patient. Please feel free to contact me if you have any questions. Procedures Date of Service Date of Service: 07/16/24
[2024-07-16] MEDS: dilTIAZem HCL CD 240 MG CAP.ER.DEG PO (19:59)
[2024-07-16] MEDS: Mirabegron 50 MG TAB.ER.24H PO (22:13)
--- NOTE | 2024-07-16 22:19 | PC.NURSE ---
Patient stating I cant breathe. Patient on 4L oxymask 02 sat 95%. RR 33, fine crackles auscultated to lower bases. 0.5mg IV morphine administered at 2219.
[2024-07-17] VITALS (15 sets, daily range): BP systolic 103–138; BP diastolic 55–83; PULSE 84–144; RESP 16–38; TEMP 36.1–36.9; O2SAT 93–98
[2024-07-17] MEDS: dilTIAZem HCL 125 MG in 0.9 % Sodium Chloride 100 ML 15 MG IVCONT (00:32)
[2024-07-17] MEDS: 0.9 % Sodium Chloride Flush 3 ML SYRINGE IVFLUSH ×3 (00:33→16:44)
[2024-07-17] MEDS: Piperacillin Sodium/Tazobactam 3.375 GM in 0.9 % Sodium Chloride 50 ML IV ×4 (02:03→20:19)
[2024-07-17] MEDS: Morphine Sulfate 2 MG/ML CARTRIDGE 0.5 MG IVPUSH ×3 (02:10→09:55)
[2024-07-17] MEDS: Omeprazole 20 MG CAPSULE.DR PO (06:06)
[2024-07-17 07:48] LABS: Creatinine Clr Calc Pharmacy 47.6; Estimated Glomerular Filt Rate > 60
[2024-07-17] MEDS: methylPREDNISolone Sod Succ 40 MG/ML VIAL IVPUSH (09:28)
--- NOTE | 2024-07-17 09:30 | P.PNIM_ITS ---
Subjective Subjective Date of Service: 07/17/24 Interval History: seen and examined this morning follow up for COPD exacerbation, pneumonia Placed on bipap for hypoxia more awake today but still with sob Review of Systems Review of Systems: Yes all other systems are reviewed and are negative Constitutional Constitutional: Denies chills and Denies fever(s) Cardiovascular Cardiovascular: Denies chest pain, Denies palpitations and Reports dyspnea Respiratory Respiratory: Reports cough and Reports dyspnea Gastrointestinal Gastrointestinal: Denies abdominal pain Endocrine Endocrine: Denies palpitations Physical Exam 2 Vital Signs: Vital Signs: Last Vital Signs Temp 98.4 F 07/17/24 07:56 Pulse 104 H 07/17/24 07:56 Resp 18 07/17/24 07:56 BP 119/67 07/17/24 07:56 Pulse Ox 96 07/17/24 07:56 O2 Del Method Oxymask 07/17/24 07:56 O2 Flow Rate 4 07/17/24 07:56 FiO2 96 07/14/24 03:00 Oxygen Flow Rate 2 07/12/24 17:03 BMI result Body Mass Index 21.5 Appearing in no acute distress lung sounds are clear to auscultation heart regular rate rhythm, clear S1, S2 positive bowel sounds, abdomen is soft, nontender neuro patient is alert x3, no focal deficits Objective Data Active Medications Acetaminophen (Acetaminophen 325 Mg Tablet) 650 mg PO Q6H PRN PRN Reason: Pain, Mild 1-3,fever,headache Last Admin: 07/15/24 17:07 Dose: 650 mg Documented By: HAYDEE Acetaminophen (Acetaminophen Supp 650 Mg Supp.Rect) 650 mg OR Q6H PRN PRN Reason: Fever Last Admin: 07/14/24 18:18 Dose: 650 mg Documented By: HAYDEE Albuterol/Ipratropium (Albuterol/Iprat 2.5/0.5mg 3 Ml Ampul.Neb) 3 ml INHALE Q4H PRN PRN Reason: Shortness of Breath/Wheezing Last Admin: 07/16/24 11:17 Dose: 3 ml Documented By: PRO Albuterol/Ipratropium (Albuterol/Iprat 2.5/0.5mg 3 Ml Ampul.Neb) 3 ml INHALE RQ4H WHILE AWAKE [facility] Last Admin: 07/17/24 08:12 Dose: Not Given Documented By: HÉCTOR Non-Admin Reason: Not In Room Apixaban (Apixaban 5 Mg Tablet) 5 mg PO BID [facility] Last Admin: 07/16/24 19:59 Dose: 5 mg Documented By: ALICIA Aspirin (Aspirin 81 Mg Tab.Chew) 81 mg PO DAILY [facility] Last Admin: 07/16/24 09:42 Dose: 81 mg Documented By: JEN Atorvastatin Calcium (Atorvastatin Calcium 40 Mg Tablet) 40 mg PO DAILY [facility] Last Admin: 07/16/24 09:41 Dose: 40 mg Documented By: JEN Belladonna Alkaloids/Opium (Opium/Belladonna 60/16.2 Mg Supp.Rect) 1 supp OR BID PRN PRN Reason: bladder spasms Last Admin: 07/16/24 18:05 Dose: 1 supp Documented By: JEN Comments: provider okayed early dose Benzonatate (Benzonatate 100 Mg Capsule) 100 mg PO TID PRN PRN Reason: Cough Calcium Carbonate (Calcium Carbonate 750 Mg Tab.Chew) 750 mg PO Q4H PRN PRN Reason: Heartburn Diltiazem HCl (Diltiazem Hcl Cd 240 Mg Cap.Er.Deg) 240 mg PO DAILY [facility]; Protocol Last Admin: 07/16/24 09:42 Dose: Not Given Documented By: JEN Non-Admin Reason: Physician Held Med Diltiazem HCl (Diltiazem Hcl Cd 240 Mg Cap.Er.Deg) 240 mg PO BEDTIME [facility]; Protocol Last Admin: 07/16/24 19:59 Dose: 240 mg Documented By: ALICIA Furosemide (Furosemide 40 Mg Tablet) 40 mg PO DAILY [facility]; Protocol Gabapentin (Gabapentin 100 Mg Capsule) 100 mg PO TID [facility] Last Admin: 07/16/24 19:59 Dose: Not Given Documented By: ALICIA Non-Admin Reason: Physician Held Med Guaifenesin/Codeine Phosphate (Guaifen/Codeine Sf 200/20/10ml 10 Ml Liquid) 5 ml PO Q6H PRN PRN Reason: Cough Last Admin: 07/13/24 07:54 Dose: 5 ml Documented By: ROSIBEL Vancomycin HCl 1,250 mg/ (Sodium Chloride) 250 mls @ 166.667 mls/hr IV Q24H [facility] Last Infusion: 07/16/24 18:03 Dose: Infused Documented By: JEN Diltiazem HCl 125 mg/ Sodium (Chloride) 125 mls @ 0 mls/hr IVCONT .Q0M [facility]; Protocol Last Titration: 07/17/24 09:00 Dose: 0 mg/hr, 0 mls/hr Documented By: DONALDO Piperacillin Sod/Tazobactam (Sod 3.375 gm/ Sodium Chloride) 50 mls @ 100 mls/hr IV Q6H [facility] Last Infusion: 07/17/24 02:41 Dose: Infused Documented By: JAYE Magnesium Hydroxide (Milk Of Magnesia 30 Ml Oral.Susp) 30 ml PO DAILY PRN PRN Reason: Constipation Melatonin (Melatonin 3 Mg Tablet) 6 mg PO BEDTIME PRN PRN Reason: Insomnia Methylprednisolone Sodium Succinate (Methylprednisolone Sod Succ 40 Mg/Ml Vial) 40 mg IVPUSH Q12H [facility] Last Admin: 07/16/24 19:57 Dose: 40 mg Documented By: ALICIA Metoprolol Succinate (Metoprolol Succinate Er 100 Mg Tab.Er.24h) 100 mg PO DAILY [facility]; Protocol Last Admin: 07/16/24 08:15 Dose: 100 mg Documented By: JEN Mirabegron (Mirabegron 50 Mg Tab.Er.24h) 50 mg PO DAILY [facility] Last Admin: 07/16/24 22:13 Dose: 50 mg Documented By: ALICIA Morphine Sulfate (Morphine Sulfate 2 Mg/Ml Cartridge) 0.5 mg IVPUSH Q4H PRN; Protocol PRN Reason: tachypnea Last Admin: 07/17/24 06:05 Dose: 0.5 mg Documented By: JAYE Olanzapine (Olanzapine 10 Mg Vial) 5 mg IM DAILY PRN PRN Reason: agitation Omeprazole (Omeprazole 20 Mg Capsule.Dr) 20 mg PO DAILY@0630 [facility] Last Admin: 07/17/24 06:06 Dose: 20 mg Documented By: JAYE Ondansetron HCl (Ondansetron Hcl 4 Mg/2 Ml Vial) 4 mg IVPUSH Q8H PRN PRN Reason: Nausea and Vomiting Pharmacy Consult (Consult Rx Vancomycin Dosing) 1 each MISCELLANE DAILY PRN PRN Reason: Consult order Ropinirole HCl (Ropinirole Hcl 2 Mg Tablet) 2 mg PO BID [facility] Last Admin: 07/16/24 19:58 Dose: 2 mg Documented By: ALICIA Sodium Chloride (0.9 % Sodium Chloride Flush 3 Ml Syringe) 3 ml IVFLUSH QSHIFT [facility] Last Admin: 07/17/24 00:33 Dose: 3 ml Documented By: JAYE Spironolactone (Spironolactone 25 Mg Tablet) 12.5 mg PO DAILY [facility]; Protocol Last Admin: 07/16/24 08:17 Dose: 12.5 mg Documented By: JANNTEKR Labs 07/16/24 08:01 07/17/24 06:36 Labs: Laboratory Results - last 24 hr 07/16/24 07/17/24 12:19 06:36 Hold Purple Top SEE NOTE Estim Creat Clear Calc 47.6 Estimated GFR > 60 TB Test (T-Spot) Com Cancelled TB Test Nil Control Cancelled TB Test Panel A Cancelled TB Test Panel B Cancelled TB Test Positive Cntrl Cancelled Assessment and Plan (1) Left-sided weakness: Status: Acute (2) COPD exacerbation: Status: Acute Plan 82-year-old male with pertinent history of chronic hypoxemic respiratory failure due to COPD on 2 L supplemental oxygen, chronic atrial fibrillation on anticoagulation, gastroesophageal reflux disease, mixed hyperlipidemia, congestive heart failure with preserved ejection fraction who presents to the emergency department for evaluation of dyspnea. Acute on chronic hypoxic respiratory failure with hypercarbia secondary to acute metabolic acidosis Placed on BiPAP 07/15 which seemed to help his symptoms of lethargy and hypoxia ABG 7.34/87/62/48, repeat 7.51/58/147/47 Patient still has some work of breathing, on 3-5 L OxyMask Repeat chest CT 07/16 showing [id number] bilateral pleural effusions, enlarged right cardiac atria, enlarged pulmonary trunk, regular opacity in the right lower lobe Discussed with pulmonology>rec check the spot, sputum for AFB and culture (?GLADYS), avoid benzos or opiates secondary to worsening hypercapnia, CPT with Acapella VQ scan with low probability of PE, venous doppler us negative on and off bipap Atrial fibrillation with RVR likely due to missing medications and COPD exacerbation metoprolol, Cardizem 240 am and increased to 240 in pm Patient given IV Cardizem yesterday x2 then started on Cardizem drip Patient is still with elevated heart rate, started digoxin load Cardiology consultation>continue current regimin, when hr improved consider lowering doses of CCB Restarted Eliquis as hematuria has resolved Congestive heart failure with preserved EF. Resolved BNP peaked at 869 On Lasix 40 mg po daily follow I&O closely Sepsis and acute on chronic respiratory failure due to right-sided pneumonia and COPD exacerbation Sepsis resolved s/p IV ceftriaxone and azithromycin Scheduled and p.r.n. DuoNebs systemic steroids. on baseline home O2 2 L, titrate as needed noted hypoxia 07/14 >Repeat CXR 07/14 showing multifocal bilateral pulmonary opacities mildly worsening Changed antibiotics to vancomycin and Zosyn Encepalopathy likely hospital delirium requiring zyprexa and valium especially at night agitated off and on Hematuria. Resolved s/p [facility]bi urology following Hyperkalemia. 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 Quality Stroke Does the patient have a stroke diagnosis?: No VTE Prior VTE?: No VTE Risk Level:: Medical - moderate - high VTE Device Contraindication: Treatment Not Indicated VTE Drug Contraindication: N/A - Med Ordered
[2024-07-17] MEDS: dilTIAZem HCL CD 240 MG CAP.ER.DEG PO ×2 (09:39→20:19)
[2024-07-17] MEDS: Metoprolol Succinate ER 100 MG TAB.ER.24H PO (09:40)
[2024-07-17] MEDS: Furosemide 40 MG TABLET PO (09:41)
[2024-07-17] MEDS: Spironolactone 25 MG TABLET 12.5 MG PO (09:41)
[2024-07-17] MEDS: Atorvastatin Calcium 40 MG TABLET PO (09:45)
[2024-07-17] MEDS: Apixaban 5 MG TABLET PO ×2 (09:45→20:18)
[2024-07-17] MEDS: Aspirin 81 MG TAB.CHEW PO (09:45)
[2024-07-17] MEDS: Gabapentin 100 MG CAPSULE PO ×3 (09:45→20:19)
[2024-07-17] MEDS: Mirabegron 50 MG TAB.ER.24H PO (09:46)
[2024-07-17] MEDS: rOPINIRole HCL 2 MG TABLET PO ×2 (09:46→20:19)
[2024-07-17 11:06] LABS: Venous Blood Gas Refer to POC result
[2024-07-17 11:09] LABS: VBG Base Excess 22.5 mmol/L; VBG HCO3 55 mmol/L (22-26); VBG pCO2 104 mmHg; VBG pH 7.33 (7.32-7.43); VBG pO2 64 mmHg
[2024-07-17] MEDS: Albuterol/Iprat 2.5/0.5MG 3 ML AMPUL.NEB INHALE ×3 (11:10→20:14)
[2024-07-17] MEDS: Opium/Belladonna 60/16.2 mg SUPP.RECT 1 SUPP PR (12:01)
--- NOTE | 2024-07-17 12:13 | MHC.CLN ---
CONSULT FOR POOR PO NOTED PO INTAKE 0% X 2 DAYS PT APPEARS ANXIOUS AND C/O SOB CARDIAC DIET IN PLACE RECOMMEND ADDING ENSURE TID TO INCREASE KCALS SUPP TO PROVIDE 1050KCALS, 60G PROTEIN WITH 100% ACCEPTANCE MONITOR PO INTAKE CLOSELY AND ENCOURAGE SUPPLEMENT
--- NOTE | 2024-07-17 12:35 | PM.PNCARD ---
Subjective Subjective Date of Service: 07/17/24 Principal diagnosis: Atrial fibrillation Interval history: Patient with borderline rate control. Overall rate this morning was in the 90s. He is very agitated when I saw him and in altered mental sensorium, delirium. Patient admitted with pneumonia and acute respiratory failure in the setting of chronic respiratory failure. Atrial fibrillation rate is difficult control. Noted to have possible CVA although brain MRI imaging does not show any significant acute infarcts. Review of Systems Review of Systems Yes Unobtainable due to mental status Physical Exam Vital Signs: Last Vital Signs Temp 97.0 F 07/17/24 12:00 Pulse 144 H 07/17/24 12:00 Resp 30 H 07/17/24 12:06 BP 132/83 07/17/24 12:00 Pulse Ox 96 07/17/24 12:00 O2 Del Method BiPAP 07/17/24 12:00 O2 Flow Rate 4 07/17/24 07:56 FiO2 96 07/14/24 03:00 Oxygen Flow Rate 2 07/12/24 17:03 BMI result Body Mass Index 21.5 GENERAL APPEARANCE: On facemask, sleeping. On supplemental oxygen. NECK: no carotid bruit, no jugular venous distention. SKIN: no suspicious lesions, warm and dry. HEART: no murmurs, irregular rate and rhythm. LUNGS: clear to auscultation bilaterally. ABDOMEN: soft. EXTREMITIES: no edema. PERIPHERAL PULSES: equal. NEUROLOGIC: Currently sleeping. Objective Labs and Meds 07/16/24 08:01 07/17/24 06:36 Lab results: Laboratory Results - last 24 hr 07/16/24 07/17/24 07/17/24 12:19 06:36 11:05 Hold Purple Top SEE NOTE VBG pH 7.33 VBG pCO2 104 VBG pO2 64 VBG HCO3 55 H VBG O2 Saturation 85.0 VBG Base Excess 22.5 Creatinine 1.15 Estim Creat Clear Calc 47.6 Estimated GFR > 60 TB Test (T-Spot) Com Cancelled TB Test Nil Control Cancelled TB Test Panel A Cancelled TB Test Panel B Cancelled TB Test Positive Cntrl Cancelled Imaging Radiologist's impression: Impressions Pulmonary Perfusion Imaging 07/17/24 08:20 IMPRESSION: Low probability for pulmonary emboli. Electronically signed by: Yony Jaimes MD 07/17/2024 10:09 AM EDT RP Venous Duplex 07/17/24 09:59 IMPRESSION: No acute deep venous thrombosis interrogated veins, bilateral lower extremities. Negative for DVT. Electronically signed by: Juventino Knight MD 07/17/2024 11:07 AM EDT RP Progress Note: A&P Assessment and plan (1) Chronic atrial fibrillation: Status: Acute Assessment and Plan: Atrial fibrillation, chronic with difficult control rate in his elderly gentleman who is admitted with a again pneumonia and acute hypoxemic respiratory failure currently in delirium and very agitated. This is most likely also contributing to his difficult control rate. Currently on high dose Cardizem as well as metoprolol therapy. I would focus on treating his underlying agitation and altered mental sensorium that might make his rate control with more achievable. Continue full oral anticoagulation with Eliquis. Overall prognosis guarded given his advanced respiratory dysfunction. Clinically does not appear to be in overt heart failure Will sign of the case at this point time and follow as need be. Please consult if there any persisting ongoing issues. Time Spent With Patient Time: Total time managing care of this patient today ____ minutes. Progress Note: Quality Stroke Does the patient have a stroke diagnosis?: No Procedures Date of Service Date of Service: 07/17/24
--- NOTE | 2024-07-17 14:15 | MHC.CM.PN ---
EMR reviewed and per MD rounds, pt is not medically cleared for discharge due to management of COPD exacerbation, and pneumonia, TB panel pending.
[2024-07-17 14:29] LABS: Vancomycin Random 20.7 mcg/mL (15-20)
[2024-07-17 15:41] LABS: VBG HCO3 55 mmol/L (22-26); VBG pCO2 88 mmHg; VBG pO2 137 mmHg
[2024-07-17 15:41] LABS: Venous Blood Gas Refer to POC result
--- NOTE | 2024-07-17 15:56 | P.CDIM_ITS ---
PROVIDER RESPONSE TEXT: To clarify, the appropriate diagnosis supported by the clinical indicators: Paroxysmal atrial fibrillation QUERY TEXT: PHYSICIAN'S DOCUMENTATION REQUEST Date of Query: 07/17/2024 12:34 PM EDT Patient Name: Mac Marsh Admit Date: 07/12/2024 Dear Latasha Genao PRINT WASHER, A review of the medical record indicates additional documentation may be needed. Please review below and update the documentation accordingly. Clinical Indicators: H&P 07/12/24 - Chronic atrial fibrillation, rate controlled in the ED. Cardiology note 07/16/24 - Heart rates difficult to control in the setting of multifocal infiltrates a nd pneumonia but overall improving. Dioxin on admission, Cardizem 240 mg in the morning and 120 in the night along with Toprol-XL. Progress notes: Atrial fibrillation with RVR likely due to missing medications and COPD exacerbation. Patient is still with elevated heart rate, started on Cardizem drip. If possible, please provide further specificity regarding atrial fibrillation, such as: Paroxysmal atrial fibrillation Persistent atrial fibrillation Long lasting persistent atrial fibrillation Permanent atrial fibrillation Other (explain) Clinically unable to determine (explain) Thank you, Lupe Robles, CCS, CDIS Use of terms such as suspected, likely, concern for, or probable (associated with a specific diagnosi s that is being evaluated, monitored, or treated as if it exists) are acceptable and can be coded in the inpatient se tting, when documented at the time of discharge. Please use your independent medical judgment in providing your response. THIS QUERY IS PART OF THE PERMANENT MEDICAL RECORD
[2024-07-17] MEDS: vancomycin HCL 750 MG in 0.9 % Sodium Chloride 250 ML 265 MG IV (16:32)
[2024-07-17] MEDS: dilTIAZem HCL 125 MG in 0.9 % Sodium Chloride 100 ML 10 MG IVCONT (18:24)
--- NOTE | 2024-07-17 19:14 | PC.NURSE ---
pt having increased WOB, tachypnea, diaporetic. VBG ordered. pt placed on bipap at 1130 by RT. 1:1 sitter at bedside. pt semi-tolerating bipap, needing frequent redirection from removing mask. pt tolerated bipap until 1500, taken off by RT and repeat VBG ordered. 1145 bladder scan 441, straight cath per Vinnie Genao [employer]ING GROUP LEADER. 1750 per Vinnie Genao [employer] LEADER, restart dilt gtt d/t HR sustaining 120s, as high as 130s. see MAR
[2024-07-18] VITALS (20 sets, daily range): BP systolic 107–154; BP diastolic 54–95; PULSE 54–132; RESP 16–35; TEMP 36.3–36.8; O2SAT 89–100
[2024-07-18] MEDS: 0.9 % Sodium Chloride Flush 3 ML SYRINGE IVFLUSH ×3 (01:34→14:57)
[2024-07-18] MEDS: Piperacillin Sodium/Tazobactam 3.375 GM in 0.9 % Sodium Chloride 50 ML IV ×4 (01:35→20:32)
[2024-07-18] MEDS: Morphine Sulfate 2 MG/ML CARTRIDGE 0.5 MG IVPUSH ×2 (01:41→05:42)
[2024-07-18] MEDS: Opium/Belladonna 60/16.2 mg SUPP.RECT 1 SUPP PR (03:42)
[2024-07-18] MEDS: dilTIAZem HCL 125 MG in 0.9 % Sodium Chloride 100 ML 10 MG IVCONT (05:41)
[2024-07-18] MEDS: Albuterol/Iprat 2.5/0.5MG 3 ML AMPUL.NEB INHALE ×4 (08:02→19:13)
[2024-07-18 08:17] LABS: Venous Blood Gas Refer to POC result
[2024-07-18 08:22] LABS: VBG Base Excess 23.3 mmol/L; VBG HCO3 54 mmol/L (22-26); VBG pCO2 95 mmHg; VBG pH 7.36 (7.32-7.43); VBG pO2 123 mmHg
[2024-07-18 08:36] LABS: Creatinine Clr Calc Pharmacy 47.6; Estimated Glomerular Filt Rate > 60
[2024-07-18] MEDS: methylPREDNISolone Sod Succ 40 MG/ML VIAL IVPUSH (08:40)
--- NOTE | 2024-07-18 10:47 | HO.PM.IMPN ---
Subjective Subjective Date of Service: 07/18/24 Interval History: seen and evaluated this morning difficult to arouse, sleeping after long night where he was restless on Cardizem drip and Unable to tolerate PO medications this morning pending sputum samples no other events Review of Systems Review of Systems: Yes Unobtainable due to mental status Physical Exam Vital Signs: Vital Signs: Last Vital Signs Temp 97.3 F 07/18/24 08:00 Pulse 97 07/18/24 08:10 Resp 18 07/18/24 08:10 BP 112/56 L 07/18/24 08:00 Pulse Ox 96 07/18/24 08:00 O2 Del Method Oxymask 07/18/24 08:00 O2 Flow Rate 6 07/18/24 08:00 FiO2 96 07/14/24 03:00 Oxygen Flow Rate 2 07/12/24 17:03 BMI result Body Mass Index 21.5 Const: Other: Constitutional : altered , sleeping , not in distress Cardiovascular : no JVP, no lower extremity edema Respiratory : bilateral chest movement, not in resp distress , On O2 supplement Gastrointestinal: soft, lax, Non tender Skin : Warm, Dry Neurological : Alert with stimulation but goes back to sleep. moving all extremities Objective Data Active Medications Acetaminophen (Acetaminophen 325 Mg Tablet) 650 mg PO Q6H PRN PRN Reason: Pain, Mild 1-3,fever,headache Last Admin: 07/15/24 17:07 Dose: 650 mg Documented By: HAYDEE Acetaminophen (Acetaminophen Supp 650 Mg Supp.Rect) 650 mg AR Q6H PRN PRN Reason: Fever Last Admin: 07/14/24 18:18 Dose: 650 mg Documented By: HAYDEE Albuterol/Ipratropium (Albuterol/Iprat 2.5/0.5mg 3 Ml Ampul.Neb) 3 ml INHALE Q4H PRN PRN Reason: Shortness of Breath/Wheezing Last Admin: 07/16/24 11:17 Dose: 3 ml Documented By: PRO Albuterol/Ipratropium (Albuterol/Iprat 2.5/0.5mg 3 Ml Ampul.Neb) 3 ml INHALE RQ4H WHILE AWAKE CARLOS Last Admin: 07/18/24 08:02 Dose: 3 ml Documented By: HÉCTOR Apixaban (Apixaban 5 Mg Tablet) 5 mg PO BID [facility] Last Admin: 07/17/24 20:18 Dose: 5 mg Aspirin (Aspirin 81 Mg Tab.Chew) 81 mg PO DAILY [facility] Last Admin: 07/17/24 09:45 Dose: 81 mg Atorvastatin Calcium (Atorvastatin Calcium 40 Mg Tablet) 40 mg PO DAILY [facility] Last Admin: 07/17/24 09:45 Dose: 40 mg Belladonna Alkaloids/Opium (Opium/Belladonna 60/16.2 Mg Supp.Rect) 1 supp AR BID PRN PRN Reason: bladder spasms Last Admin: 07/18/24 03:42 Dose: 1 supp Documented By: DALLAS Benzonatate (Benzonatate 100 Mg Capsule) 100 mg PO TID PRN PRN Reason: Cough Calcium Carbonate (Calcium Carbonate 750 Mg Tab.Chew) 750 mg PO Q4H PRN PRN Reason: Heartburn Diltiazem HCl (Diltiazem Hcl Cd 240 Mg Cap.Er.Deg) 240 mg PO DAILY [facility]; Protocol Last Admin: 07/17/24 09:39 Dose: 240 mg Diltiazem HCl (Diltiazem Hcl Cd 240 Mg Cap.Er.Deg) 240 mg PO BEDTIME CARLOS; Protocol Last Admin: 07/17/24 20:19 Dose: 240 mg Documented By: BECKY Furosemide (Furosemide 40 Mg Tablet) 40 mg PO DAILY [facility]; Protocol Last Admin: 07/17/24 09:41 Dose: 40 mg Gabapentin (Gabapentin 100 Mg Capsule) 100 mg PO TID [facility] Last Admin: 07/17/24 20:19 Dose: 100 mg Diltiazem HCl 125 mg/ Sodium (Chloride) 125 mls @ 0 mls/hr IVCONT .Q0M [facility]; Protocol Last Titration: 07/18/24 10:32 Dose: 5 mg/hr, 5 mls/hr Documented By: TAYLOR Piperacillin Sod/Tazobactam (Sod 3.375 gm/ Sodium Chloride) 50 mls @ 100 mls/hr IV Q6H [facility] Last Infusion: 07/18/24 10:25 Dose: Infused Documented By: TAYOLR Vancomycin HCl 750 mg/ Sodium (Chloride) 265 mls @ 265 mls/hr IV Q24H [facility] Last Infusion: 07/17/24 18:04 Dose: Infused Documented By: DONALDO Magnesium Hydroxide (Milk Of Magnesia 30 Ml Oral.Susp) 30 ml PO DAILY PRN PRN Reason: Constipation Melatonin (Melatonin 3 Mg Tablet) 6 mg PO BEDTIME PRN PRN Reason: Insomnia Methylprednisolone Sodium Succinate (Methylprednisolone Sod Succ 40 Mg/Ml Vial) 40 mg IVPUSH DAILY [facility] Last Admin: 07/18/24 08:40 Dose: 40 mg Documented By: TAYLOR Metoprolol Succinate (Metoprolol Succinate Er 100 Mg Tab.Er.24h) 100 mg PO DAILY [facility]; Protocol Last Admin: 07/17/24 09:40 Dose: 100 mg Mirabegron (Mirabegron 50 Mg Tab.Er.24h) 50 mg PO DAILY [facility] Last Admin: 07/17/24 09:46 Dose: 50 mg Morphine Sulfate (Morphine Sulfate 2 Mg/Ml Cartridge) 0.5 mg IVPUSH Q4H PRN; Protocol PRN Reason: tachypnea Last Admin: 07/18/24 05:42 Dose: 0.5 mg Documented By: BECKY Olanzapine (Olanzapine 10 Mg Vial) 5 mg IM DAILY PRN PRN Reason: agitation Omeprazole (Omeprazole 20 Mg Capsule.Dr) 20 mg PO DAILY@0630 [facility] Last Admin: 07/18/24 06:05 Dose: Not Given Documented By: DALLAS Non-Admin Reason: Patient Condition Contraindication Ondansetron HCl (Ondansetron Hcl 4 Mg/2 Ml Vial) 4 mg IVPUSH Q8H PRN PRN Reason: Nausea and Vomiting Pharmacy Consult (Consult Rx Vancomycin Dosing) 1 each MISCELLANE DAILY PRN PRN Reason: Consult order Ropinirole HCl (Ropinirole Hcl 2 Mg Tablet) 2 mg PO BID [facility] Last Admin: 07/17/24 20:19 Dose: 2 mg Documented By: BECKY Sodium Chloride (0.9 % Sodium Chloride Flush 3 Ml Syringe) 3 ml IVFLUSH QSHIFT [facility] Last Admin: 07/18/24 08:36 Dose: 3 ml Documented By: TAYLOR Spironolactone (Spironolactone 25 Mg Tablet) 12.5 mg PO DAILY [facility]; Protocol Last Admin: 07/17/24 09:41 Dose: 12.5 mg Labs 07/16/24 08:01 07/18/24 08:03 Labs: Laboratory Results - last 24 hr 07/17/24 07/17/24 07/17/24 11:05 13:55 15:30 VBG pH 7.33 7.40 VBG pCO2 104 88 VBG pO2 64 137 VBG HCO3 55 H 55 H VBG O2 Saturation 85.0 100.0 VBG Base Excess 22.5 25.0 Estim Creat Clear Calc Estimated GFR Random Vancomycin 20.7 H 07/18/24 07/18/24 08:03 08:17 VBG pH 7.36 VBG pCO2 95 VBG pO2 123 VBG HCO3 54 H VBG O2 Saturation 99.0 VBG Base Excess 23.3 Estim Creat Clear Calc 47.6 Estimated GFR > 60 Random Vancomycin Microbiology Microbiology Results: Microbiology 07/12/24 17:21 Blood Culture - Final Blood - Venous No growth after 5 days. 07/12/24 17:23 Blood Culture - Final Blood - Venous No growth after 5 days. Assessment and Plan (1) Acute on chronic respiratory failure with hypoxia and hypercapnia: Status: Acute (2) Pulmonary nodules: Status: Acute (3) Bronchiectasis: Status: Acute (4) Right-sided heart failure: Status: Acute (5) Cerebral infarction: Status: Acute (6) COPD exacerbation: Status: Acute Plan 82-year-old male with pertinent history of chronic hypoxemic respiratory failure due to COPD on 2 L supplemental oxygen, chronic atrial fibrillation on anticoagulation, gastroesophageal reflux disease, mixed hyperlipidemia, congestive heart failure with preserved ejection fraction who presents to the emergency department for evaluation of dyspnea. Acute on chronic hypoxic respiratory failure with hypercarbia secondary to COPD exacerbation VQ scan with low probability of PE, venous doppler us negative Repeat chest CT 07/16 showing [id number] bilateral pleural effusions, enlarged right cardiac atria, enlarged pulmonary trunk, regular opacity in the right lower lobe Placed on BiPAP 07/15 recheck VBG today on 3-5 L OxyMask Discussed with pulmonology>rec check the spot, sputum for AFB and culture (?GLADYS) avoid benzos or opiates secondary to worsening hypercapnia CPT with Acapella on and off bipap Atrial fibrillation with RVR Unable to take PO metoprolol, Cardizem 240 mg bid continue IV Cardizem drip started digoxin load Cardiology consultation>continue current regimen, when hr improved consider lowering doses of CCB Restarted Eliquis as hematuria has resolved Congestive heart failure with preserved EF. Resolved BNP trended down On Lasix 40 mg po daily follow I&O closely Sepsis and acute on chronic respiratory failure due to right-sided pneumonia and COPD exacerbation complicated with acute lactic acidosis Repeat CXR 07/14 showing multifocal bilateral pulmonary opacities mildly worsening s/p IV ceftriaxone and azithromycin Scheduled and p.r.n. DuoNebs systemic steroids. on baseline home O2 2 L, titrate as needed Changed to vancomycin and Zosyn Toxic metabolic Encepalopathy likely hospital delirium requiring zyprexa PRN agitated off and on Hematuria. Resolved ,s/p cbi urology following acute Hyperkalemia. 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 The patient will need overnight stay for IV Cardizem, O2 support, altered mentaiton evaluation. Quality Stroke Does the patient have a stroke diagnosis?: No VTE Prior VTE?: No VTE Risk Level:: Medical - moderate - high VTE Device Contraindication: Treatment Not Indicated VTE Drug Contraindication: N/A - Med Ordered
--- NOTE | 2024-07-18 10:51 | PC.NURSE ---
Lethargic, unable to open his eyes, grimacing to sternal rub , unable to take po meds or food , BP 128/53 HR 98 , oxygen sat 94% 6 liter oxymask , DR Crews aware . Plan : VBG
[2024-07-18 11:35] LABS: VBG Base Excess 22.9 mmol/L; VBG HCO3 58 mmol/L (22-26); VBG pCO2 138 mmHg; VBG pH 7.23 (7.32-7.43); VBG pO2 180 mmHg
[2024-07-18 11:37] LABS: Venous Blood Gas Refer to POC result
--- NOTE | 2024-07-18 11:48 | MHC.CM.PN ---
Per rounds, pt. is not ready for DC, he is being treated with IV Cardizem, is on O2 support and needs eval for altered mentation. Pt. had VNA services in the home prior to hosp stay ([facility]). CM to follow for DC needs.
--- NOTE | 2024-07-18 12:25 | PC.RT ---
pt placed on bipap due to elevated vc02 of 138. pt is somnolent and would not be able to pull mask off if pt vomitted. Pt has a sitter and in the room. DR. Crews and Carlos aware as well as Director Edgard Aguilera about pt condition. Dr Smith aware as well. Will recheck a VBG at 1600 today.
[2024-07-18 14:31] LABS: Vancomycin Random 16.9 mcg/mL (15-20)
[2024-07-18 15:55] LABS: Venous Blood Gas Refer to POC result
[2024-07-18 15:58] LABS: VBG HCO3 57 mmol/L (22-26); VBG pCO2 125 mmHg; VBG pH 7.26 (7.32-7.43); VBG pO2 67 mmHg
[2024-07-18] MEDS: vancomycin HCL 750 MG in 0.9 % Sodium Chloride 250 ML 265 MG IV (16:52)
--- NOTE | 2024-07-18 18:45 | PC.NURSE ---
pt on Bipap since noon time , VBG gases done at 1600 , some improvement , will keep BIPap and repeat blood gases tonight
[2024-07-18] MEDS: dilTIAZem HCL 125 MG in 0.9 % Sodium Chloride 100 ML 15 MG IVCONT (22:08)
[2024-07-18] MEDS: HYDROmorphone HCl 0.5 MG/0.5 ML SYRINGE IVPUSH (22:09)
[2024-07-18 22:16] LABS: Venous Blood Gas Refer to POC result
[2024-07-18 22:16] LABS: VBG Base Excess 26.5 mmol/L; VBG HCO3 57 mmol/L (22-26); VBG pCO2 91 mmHg; VBG pO2 137 mmHg
[2024-07-18] MEDS: Digoxin 0.5 MG/2 ML AMPUL 0.25 MG IVPUSH (23:13)
[2024-07-19] VITALS: BP 152/71; PULSE 62; RESP 17; TEMP 36.4; O2SAT 94
[2024-07-19] MEDS: Piperacillin Sodium/Tazobactam 3.375 GM in 0.9 % Sodium Chloride 50 ML IV ×2 (02:54→07:52)
[2024-07-19] MEDS: HYDROmorphone HCl 0.5 MG/0.5 ML SYRINGE IVPUSH (02:55)
[2024-07-19 04:00] VITALS: BP 146/63; PULSE 81; RESP 16; TEMP 36.9; O2SAT 93
--- NOTE | 2024-07-19 04:02 | PM.EVENT ---
Event Note Date of Service: 07/19/24 Event Note: Contacted in multiple occassions to notify patient's HR was sustaining 120-130s. Instructed nursing to titrate diltiazem infusion. Patient persisted to have uncontrolled HR despite receiving 15 ml/hr. One time dose of digoxin was given which subsequently control the heart rate to low 100. Patient also received 2 doses of Dilaudid with adequate pain control. Time Spent With Patient Time: Total time managing care of this patient today ____ minutes.
--- NOTE | 2024-07-19 04:38 | PC.NURSE ---
Addendum entered by Haleigh Kimble RN 07/19/24 04:55: [id number]: pt somnolent during beginning of shift - arousable to sternal rub - unable to tolerate PO meds. During duration of shift - pt becoming more alert and restless. When bipap mask off - pt yelling help non re-directable- not following commands. Original Note: 1954: pt on continuous bipap, restless, HR sustaining in 120's/130's - A fib/ a flutter rhythm - on Cardizem gtt at 5mg/hr - MD ponce aware. 2032: stat VBG ordered and obtained - showing improvement, Cardizem titrated to 10mg/hr with no effect. 2208: 1 x dose of IVP Dilaudid ordered for restlessness - given with good effect. 2133: pt HR sustaining in 120's - a fib/a flutter rhythm - Cardizem titrated to 15mg/hr with no effect. 2244: pt HR remains in 120's/130's despite max titration of Cardizem gtt - aware. 2313: 1x dose of 0.25mg digoxin IVP ordered and given with good effect - HR steady in high 90's/ low 100's on Cardizem gtt at 15mg/hr throughout remainder of shift. HR peaks to 110's with agitation, and pain. 0230: pt off bipap - has oxy mask at 6L- O2 in high 90's - pt restless and complaining of pain - aware. 0255: 1 x dose of IVP Dilaudid ordered and given with good effect. [id number]: 1:1 sitter at bedside for safety, airborne precautions maintained.
[2024-07-19] MEDS: dilTIAZem HCL 125 MG in 0.9 % Sodium Chloride 100 ML 15 MG IVCONT (06:35)
[2024-07-19 07:09] LABS: Basophils Percent Auto 0.3 % (0-2); Hematocrit 48.7 % (42.0-52.0); Hemoglobin 13.7 g/dl (14.0-18.0); Imm Gran Pct Auto 2.6 % (0.0-0.4); Lymphocytes Absolute Auto 0.5 X10*3/uL (1.2-4.9); Lymphocytes Percent Auto 3.1 % (20-40); MANUAL DIFF FLAG SCAN; Mean Corpuscular HGB Conc 28.1 g/dl (31.0-36.0); Mean Corpuscular Hemoglobin 29.8 pg (27.0-33.0); Mean Corpuscular Volume 106.1 fL (80.0-98.0); Mean Platelet Volume 9.7 fL (9.4-12.4); Monocytes Absolute Auto 1.8 X10*3/uL (0.1-1.2); Monocytes Percent Auto 11.5 % (2-11); NRBC Pct Auto 0.1 /100WBC (0.0-0.2); Neutrophils Absolute Auto 12.9 x10*3/uL (2.0-8.3); Neutrophils Percent Auto 82.5 % (45-73); Platelet Count 220 X10*3/uL (160-400); Red Blood Count 4.59 X10*6/uL (4.60-5.80); Red Cell Distribution Width 12.9 % (11.0-16.0); SCAN SMEAR FLAG 1; White Blood Count 15.6 X10*3/uL (4.8-10.8)
[2024-07-19 07:17] LABS: Creatinine Clr Calc Pharmacy 39.6; Estimated Glomerular Filt Rate 49
[2024-07-19 07:20] LABS: Blood Urea Nitrogen 61 mg/dL (9-16); Calcium 9.5 mg/dL (8.4-10.2); Creatinine Clr Calc Pharmacy 39.6; Estimated Glomerular Filt Rate 49; Glucose Random 156 mg/dL (60-115)
[2024-07-19 07:27] LABS: Anion Gap 17 (12-20); Chloride 107 mmol/L (96-108); Potassium 5.6 mmol/L (3.3-5.1)
[2024-07-19 07:34] LABS: Carbon Dioxide 45 mmol/L (22-29); Sodium 163 mmol/L (135-145)
[2024-07-19 07:35] LABS: SLIDE REVIEW VERIFIED
[2024-07-19] MEDS: Dextrose 5 % 1,000 ML 150 ML IVCONT (07:47)
[2024-07-19 08:00] VITALS: BP 147/61; PULSE 100; RESP 20; TEMP 36.8; O2SAT 90
[2024-07-19] MEDS: methylPREDNISolone Sod Succ 40 MG/ML VIAL IVPUSH (08:00)
[2024-07-19] MEDS: 0.9 % Sodium Chloride Flush 3 ML SYRINGE IVFLUSH ×2 (08:01→16:46)
[2024-07-19] MEDS: Digoxin 0.5 MG/2 ML AMPUL 0.125 MG IVPUSH (08:08)
[2024-07-19 08:20] LABS: Venous Blood Gas Refer to POC result
[2024-07-19 08:21] LABS: VBG Base Excess 17.8 mmol/L; VBG HCO3 56 mmol/L (22-26); VBG pH 7.09 (7.32-7.43); VBG pO2 77 mmHg
[2024-07-19] MEDS: Albuterol/Iprat 2.5/0.5MG 3 ML AMPUL.NEB INHALE (08:35)
[2024-07-19 08:39] VITALS: PULSE 100; PULSE 127; RESP 20; O2SAT 88
--- NOTE | 2024-07-19 08:50 | W.PM.CCCN ---
History of Present Illness Data of Consult Service Date: 07/19/24 Primary Care Provider: Jefferson Taylor MD HPI Reason for consult: unresponsive A 84-year-old gentleman with past medical history of COPD on 2 L supplemental oxygen, chronic atrial fibrillation on anticoagulation, GERD, HLP, HFpEF was admitted to the hospital due to shortness of breath on 07/12/2024. He is being treated as COPD exacerbation, worsening hypercarbia placed on BiPAP support. This morning patient was more unresponsive, ABG showing pCO2 under reasonable pH 7.09 with bicarb 56. As of now patient is DNI/DNR His sodium is elevated to 163 possibly due to poor oral intake Review of Systems Review of Systems: Unresponsive [facility] Past Medical History Medical History (Updated 07/16/24 @ 12:50 by Jayy Genao MD) Acute on chronic respiratory failure with hypoxia and hypercapnia Pulmonary nodules Bronchiectasis Right-sided heart failure Cor pulmonale COPD (chronic obstructive pulmonary disease) Elevated brain natriuretic peptide (BNP) level Pneumonia Pneumonia COPD (chronic obstructive pulmonary disease) with emphysema Chronic atrial fibrillation HTN (hypertension) Bilateral carotid artery disease Hyperlipidemia History of cardiomyopathy COPD (chronic obstructive pulmonary disease) History of cardioversion Family History Family History Father Stroke CVD (cardiovascular disease) Mother Colon cancer Diabetes Sister Diabetes COPD (chronic obstructive pulmonary disease) Breast cancer Surgical History Surgical History History of tonsillectomy and adenoidectomy Hx of colonoscopy Hx of cardiac cath Social History Social History Household Members: Spouse Housing: House Do you presently have visiting nurse or other home services: No Alcohol intake: former Comment: sitter at bedside Patient Tobacco Use Status: Former Tobacco user Tobacco use type: Cigarette Second Hand Smoke Exposure: No Advance Directives Date on File: 06/11/21 service: No 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al status: retired 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 Cognitive needs: No Hearing needs: No Vision needs: Yes (rx glasses) Meds Allergies Allergy/AdvReac Type Severity Reaction Status Date / Time No Known Allergies Allergy Unknown UNKNOWN Verified 07/12/24 17:05 [NO KNOWN ALLERGIES] Active Medications: Current Medications Acetaminophen (Acetaminophen 325 Mg Tablet) 650 mg PO Q6H PRN PRN Reason: Pain, Mild 1-3,fever,headache Last Admin: 07/15/24 17:07 Dose: 650 mg Acetaminophen (Acetaminophen Supp 650 Mg Supp.Rect) 650 mg SC Q6H PRN PRN Reason: Fever Last Admin: 07/14/24 18:18 Dose: 650 mg Albuterol/Ipratropium (Albuterol/Iprat 2.5/0.5mg 3 Ml Ampul.Neb) 3 ml INHALE Q4H PRN PRN Reason: Shortness of Breath/Wheezing Last Admin: 07/16/24 11:17 Dose: 3 ml Albuterol/Ipratropium (Albuterol/Iprat 2.5/0.5mg 3 Ml Ampul.Neb) 3 ml INHALE RQ4H WHILE AWAKE [facility] Last Admin: 07/19/24 08:35 Dose: 3 ml Apixaban (Apixaban 5 Mg Tablet) 5 mg PO BID [facility] Last Admin: 07/18/24 20:33 Dose: Not Given Aspirin (Aspirin 81 Mg Tab.Chew) 81 mg PO DAILY [facility] Last Admin: 07/18/24 13:18 Dose: Not Given Atorvastatin Calcium (Atorvastatin Calcium 40 Mg Tablet) 40 mg PO DAILY [facility] Last Admin: 07/18/24 13:19 Dose: Not Given Belladonna Alkaloids/Opium (Opium/Belladonna 60/16.2 Mg Supp.Rect) 1 supp SC BID PRN PRN Reason: bladder spasms Last Admin: 07/18/24 03:42 Dose: 1 supp Benzonatate (Benzonatate 100 Mg Capsule) 100 mg PO TID PRN PRN Reason: Cough Calcium Carbonate (Calcium Carbonate 750 Mg Tab.Chew) 750 mg PO Q4H PRN PRN Reason: Heartburn Digoxin (Digoxin 0.5 Mg/2 Ml Ampul) 0.125 mg IVPUSH DAILY [facility]; Protocol Last Admin: 07/19/24 08:08 Dose: 0.125 mg Diltiazem HCl (Diltiazem Hcl Cd 240 Mg Cap.Er.Deg) 240 mg PO DAILY [facility]; Protocol Last Admin: 07/18/24 13:19 Dose: Not Given Diltiazem HCl (Diltiazem Hcl Cd 240 Mg Cap.Er.Deg) 240 mg PO BEDTIME [facility]; Protocol Last Admin: 07/18/24 20:33 Dose: Not Given Furosemide (Furosemide 40 Mg Tablet) 40 mg PO DAILY [facility]; Protocol Last Admin: 07/18/24 13:20 Dose: Not Given Gabapentin (Gabapentin 100 Mg Capsule) 100 mg PO TID [facility] Last Admin: 07/18/24 13:20 Dose: Not Given Diltiazem HCl 125 mg/ Sodium (Chloride) 125 mls @ 0 mls/hr IVCONT .Q0M [facility]; Protocol Last Titration: 07/19/24 08:49 Dose: 10 mg/hr, 10 mls/hr Piperacillin Sod/Tazobactam (Sod 3.375 gm/ Sodium Chloride) 50 mls @ 100 mls/hr IV Q6H [facility] Last Infusion: 07/19/24 08:23 Dose: Infused Vancomycin HCl 750 mg/ Sodium (Chloride) 265 mls @ 265 mls/hr IV Q24H [facility] Last Infusion: 07/18/24 18:24 Dose: Infused Dextrose (D5w) 1,000 mls @ 150 mls/hr IVCONT .Q6H40M [facility] Last Admin: 07/19/24 07:47 Dose: 150 mls/hr Magnesium Hydroxide (Milk Of Magnesia 30 Ml Oral.Susp) 30 ml PO DAILY PRN PRN Reason: Constipation Melatonin (Melatonin 3 Mg Tablet) 6 mg PO BEDTIME PRN PRN Reason: Insomnia Methylprednisolone Sodium Succinate (Methylprednisolone Sod Succ 40 Mg/Ml Vial) 40 mg IVPUSH DAILY [facility] Last Admin: 07/19/24 08:00 Dose: 40 mg Metoprolol Succinate (Metoprolol Succinate Er 100 Mg Tab.Er.24h) 100 mg PO DAILY [facility]; Protocol Last Admin: 07/18/24 13:20 Dose: Not Given Mirabegron (Mirabegron 50 Mg Tab.Er.24h) 50 mg PO DAILY [facility] Last Admin: 07/18/24 13:21 Dose: Not Given Morphine Sulfate (Morphine Sulfate 2 Mg/Ml Cartridge) 0.5 mg IVPUSH Q4H PRN; Protocol PRN Reason: tachypnea Last Admin: 07/18/24 05:42 Dose: 0.5 mg Olanzapine (Olanzapine 10 Mg Vial) 5 mg IM DAILY PRN PRN Reason: agitation Omeprazole (Omeprazole 20 Mg Capsule.Dr) 20 mg PO DAILY@0630 [facility] Last Admin: 07/19/24 06:36 Dose: Not Given Ondansetron HCl (Ondansetron Hcl 4 Mg/2 Ml Vial) 4 mg IVPUSH Q8H PRN PRN Reason: Nausea and Vomiting Pharmacy Consult (Consult Rx Vancomycin Dosing) 1 each MISCELLANE DAILY PRN PRN Reason: Consult order Ropinirole HCl (Ropinirole Hcl 2 Mg Tablet) 2 mg PO BID [facility] Last Admin: 07/18/24 13:21 Dose: Not Given Sodium Chloride (0.9 % Sodium Chloride Flush 3 Ml Syringe) 3 ml IVFLUSH QSHIFT [facility] Last Admin: 07/19/24 08:01 Dose: 3 ml Spironolactone (Spironolactone 25 Mg Tablet) 12.5 mg PO DAILY [facility]; Protocol Last Admin: 07/18/24 13:21 Dose: Not Given Home Medications ?Medication ?Instructions ?Recorded ?Confirmed ?Last Taken ?Type apixaban 5 mg tablet 5 mg PO BID 01/28/20 07/13/24 1 Day Ago History ~07/12/24 ropinirole 2 mg tablet 2 mg PO BID 08/04/21 07/13/24 1 Day Ago History ~07/12/24 diltiazem HCl 120 mg capsule,24 120 mg PO BEDTIME 02/01/22 07/13/24 1 Day Ago History hr,extended release ~07/12/24 furosemide 20 mg tablet 20 mg PO BID 02/01/23 07/13/24 1 Day Ago History ~07/12/24 fluticasone fur. 200 mcg-umeclid 1 ea inhalation DAILY 05/17/24 07/13/24 1 Day Ago History 62.5 mcg-vilant 25 mcg ~07/12/24 inhalat.powder (Trelegy Ellipta) pantoprazole 40 mg tablet,delayed 40 mg PO DAILY@0630 05/17/24 07/13/24 1 Day Ago History release ~07/12/24 Physical Exam Vital Signs: Vital Signs: Last Vital Signs Temp 98.2 F 07/19/24 08:00 Pulse 100 07/19/24 08:39 Resp 20 07/19/24 08:39 BP 147/61 H 07/19/24 08:00 Pulse Ox 90 L 07/19/24 08:00 O2 Del Method Oxymask 07/19/24 08:00 O2 Flow Rate 15 05/29/25 08:00 FiO2 96 07/14/24 03:00 Oxygen Flow Rate 2 07/12/24 17:03 BMI result Body Mass Index 21.5 General: Elderly, emaciated male in severe acute distress, ill appearing and tired appearing Nutritional Appearance: well nourished and overweight Eyes: appearance normal, both eyes and all related structures; Alignment and Position: alignment normal and position normal Neck: No lymphadenopathy, no thyromegaly Resp: bilateral air entry equal, bilateral decreased breath sounds Cardio: Regular rate, regular rhythm; Heart sounds: S1 normal heart sound present and S2 normal heart sound present GI: soft, nontender, no guarding, no hepatosplenomegaly : bladder normal to inspection, bladder normal to palpation, no renal angle tenderness Skin: no rashes or lesions noted and elasticity normal Neuro: Unresponsive Results Labs 07/19/24 06:46 07/19/24 06:46 Labs: Short CBC 07/19/24 Range/Units 06:46 WBC 15.6 H (4.8-10.8) X10*3/uL Hgb 13.7 L (14.0-18.0) g/dl Hct 48.7 D (42.0-52.0) % Plt Count 220 (160-400) X10*3/uL BMP 07/19/24 07/19/24 06:46 06:46 Sodium 163 H* Potassium 5.6 H Chloride 107 Carbon Dioxide 45 H* BUN 61 H Creatinine 1.38 1.38 Calcium 9.5 Microbiology Microbiology Results: Microbiology 07/18/24 10:10 Sputum - Expectorated Gram Stain - Final 07/12/24 17:21 Blood - Venous Blood Culture - Final No growth after 5 days. 07/12/24 17:23 Blood - Venous Blood Culture - Final No growth after 5 days. Assessment and Plan (1) (HFpEF) heart failure with preserved ejection fraction: Status: Acute (2) GERD (gastroesophageal reflux disease): Status: Acute (3) Asthma exacerbation in COPD: Status: Acute (4) Acute hypoxic respiratory failure: Status: Acute (5) Chronic atrial fibrillation: Status: Acute Plan Neuro: Acute encephalopathy possibly due to metabolic encephalopathy due to a combination of hypercarbia and hypernatremia. Possibly hypernatremia med his mental status worse and thereby precipitating the hypercarbia. Cardiac: Hypertensive urgency: Continue diltiazem drip as tolerated Respiratory: Acute on chronic hypercapnic respiratory failure due to COPD exacerbation further exacerbated by hyponatremia VBG showing pH of 7.09, possibly corresponding to pH of 7.15 with a ABG but mostly secondary to respiratory acidosis. Bicarb is 56 due to chronic hypercapnia Currently on BiPAP 20/5 with a rate of 20 has a very poor seal. Recommending improving seal Continue DuoNeb, add Solu-Medrol Given his poor mental status obviously the next step would be intubating the patient but this patient has a chronic respiratory failure due to COPD with his admitting bicarb 34 suggesting that his baseline pCO2 is around 60-70. Currently patient is DNI/ DNR, we will bring him to the ICU for intubation of the code status changes. However patient is not a great candidate to go on a ventilator given his chronic catabolic state, chronic CO2 retention. For now hospitalist service is taking excellent care in the floor, no additional services offered in the ICU unless the code status changes. GI: Keep him NPO due to mental status Renal: Hypernatremia: Possibly due to poor oral intake thereby exacerbating encephalopathy D5 drip 1 L over 1 hour followed by D5 water at 0150 cc/hour Repeat sodium this afternoon Prophylaxis: Lovenox, pantoprazole Total time managing care of this patient today: 35 minutes.
[2024-07-19] MEDS: Dextrose 5 % 500 ML IV (09:40)
--- NOTE | 2024-07-19 10:53 | P.PNIM_ITS ---
Subjective Subjective Date of Service: 07/19/24 Interval History: seen and evaluated this morning altered mentation VBG this morning showing 7.09 while on Bipap discussed goals of care with family and decided to change to CMP status Review of Systems Review of Systems: Yes Unobtainable due to mental status Physical Exam 2 Vital Signs: Vital Signs: Last Vital Signs Temp 98.2 F 07/19/24 08:00 Pulse 100 07/19/24 08:39 Resp 20 07/19/24 08:39 BP 147/61 H 07/19/24 08:00 Pulse Ox 90 L 07/19/24 08:00 O2 Del Method Oxymask 07/19/24 08:00 O2 Flow Rate 15 07/19/24 08:00 FiO2 96 07/14/24 03:00 Oxygen Flow Rate 2 07/12/24 17:03 BMI result Body Mass Index 21.5 Const: Other: Constitutional : altered , not in distress Cardiovascular : no JVP, no lower extremity edema Respiratory : bilateral chest movement, not in resp distress , On bipap Gastrointestinal: soft, lax, Non tender Skin : Warm, Dry Neurological : altered Objective Data Active Medications Acetaminophen (Acetaminophen 325 Mg Tablet) 650 mg PO Q6H PRN PRN Reason: Pain, Mild 1-3,fever,headache Last Admin: 07/15/24 17:07 Dose: 650 mg Documented By: HAYDEE Acetaminophen (Acetaminophen Supp 650 Mg Supp.Rect) 650 mg CA Q6H PRN PRN Reason: Fever Last Admin: 07/14/24 18:18 Dose: 650 mg Documented By: HAYDEE Albuterol/Ipratropium (Albuterol/Iprat 2.5/0.5mg 3 Ml Ampul.Neb) 3 ml INHALE Q4H PRN PRN Reason: Shortness of Breath/Wheezing Last Admin: 07/16/24 11:17 Dose: 3 ml Documented By: PRO Belladonna Alkaloids/Opium (Opium/Belladonna 60/16.2 Mg Supp.Rect) 1 supp CA BID PRN PRN Reason: bladder spasms Last Admin: 07/18/24 03:42 Dose: 1 supp Documented By: DALLAS Benzonatate (Benzonatate 100 Mg Capsule) 100 mg PO TID PRN PRN Reason: Cough Calcium Carbonate (Calcium Carbonate 750 Mg Tab.Chew) 750 mg PO Q4H PRN PRN Reason: Heartburn Diltiazem HCl (Diltiazem Hcl Cd 240 Mg Cap.Er.Deg) 240 mg PO DAILY [facility]; Protocol Last Admin: 07/19/24 10:22 Dose: Not Given Documented By: TAYLOR Non-Admin Reason: unresponsive Diltiazem HCl (Diltiazem Hcl Cd 240 Mg Cap.Er.Deg) 240 mg PO BEDTIME [facility]; Protocol Last Admin: 07/18/24 20:33 Dose: Not Given Documented By: ANTOINC Non-Admin Reason: Patient Asleep Furosemide (Furosemide 40 Mg Tablet) 40 mg PO DAILY [facility]; Protocol Last Admin: 07/18/24 13:20 Dose: Not Given Documented By: TAYLOR Non-Admin Reason: lethargic Gabapentin (Gabapentin 100 Mg Capsule) 100 mg PO TID [facility] Last Admin: 07/18/24 13:20 Dose: Not Given Documented By: TAYLOR Non-Admin Reason: lethargic Diltiazem HCl 125 mg/ Sodium (Chloride) 125 mls @ 0 mls/hr IVCONT .Q0M [facility]; Protocol Last Titration: 07/19/24 08:49 Dose: 10 mg/hr, 10 mls/hr Documented By: TAYLOR Piperacillin Sod/Tazobactam (Sod 3.375 gm/ Sodium Chloride) 50 mls @ 100 mls/hr IV Q6H [facility] Last Infusion: 07/19/24 08:23 Dose: Infused Documented By: TAYLOR Vancomycin HCl 750 mg/ Sodium (Chloride) 265 mls @ 265 mls/hr IV Q24H [facility] Last Infusion: 07/18/24 18:24 Dose: Infused Documented By: TAYLOR Magnesium Hydroxide (Milk Of Magnesia 30 Ml Oral.Susp) 30 ml PO DAILY PRN PRN Reason: Constipation Melatonin (Melatonin 3 Mg Tablet) 6 mg PO BEDTIME PRN PRN Reason: Insomnia Methylprednisolone Sodium Succinate (Methylprednisolone Sod Succ 40 Mg/Ml Vial) 40 mg IVPUSH Q6H [facility] Metoprolol Succinate (Metoprolol Succinate Er 100 Mg Tab.Er.24h) 100 mg PO DAILY [facility]; Protocol Last Admin: 07/19/24 10:22 Dose: Not Given Documented By: TAYLOR Non-Admin Reason: unresponsive Mirabegron (Mirabegron 50 Mg Tab.Er.24h) 50 mg PO DAILY [facility] Last Admin: 07/19/24 10:23 Dose: Not Given Documented By: TAYLOR Non-Admin Reason: unresponsive Olanzapine (Olanzapine 10 Mg Vial) 5 mg IM DAILY PRN PRN Reason: agitation Omeprazole (Omeprazole 20 Mg Capsule.Dr) 20 mg PO DAILY@0630 [facility] Last Admin: 07/19/24 06:36 Dose: Not Given Documented By: ANTBRITNEY Non-Admin Reason: Patient Asleep Ondansetron HCl (Ondansetron Hcl 4 Mg/2 Ml Vial) 4 mg IVPUSH Q8H PRN PRN Reason: Nausea and Vomiting Pharmacy Consult (Consult Rx Vancomycin Dosing) 1 each MISCELLANE DAILY PRN PRN Reason: Consult order Ropinirole HCl (Ropinirole Hcl 2 Mg Tablet) 2 mg PO BID [facility] Last Admin: 07/18/24 13:21 Dose: Not Given Documented By: TAYLOR Non-Admin Reason: Physician Held Med Sodium Chloride (0.9 % Sodium Chloride Flush 3 Ml Syringe) 3 ml IVFLUSH QSHIFT [facility] Last Admin: 07/19/24 08:01 Dose: 3 ml Documented By: TAYLOR Spironolactone (Spironolactone 25 Mg Tablet) 12.5 mg PO DAILY [facility]; Protocol Last Admin: 07/18/24 13:21 Dose: Not Given Documented By: TAYLOR Non-Admin Reason: lethargic Labs 07/19/24 06:46 07/19/24 06:46 Labs: Laboratory Results - last 24 hr 07/18/24 07/18/24 07/18/24 11:30 13:51 15:54 MCV MCH MCHC RDW Plt Count MPV Immature Gran % (Auto) Neut % (Auto) Lymph % (Auto) [place] % (Auto) Eos % (Auto) Baso % (Auto) Lymph # (Auto) [place] # (Auto) Eos # (Auto) Baso # (Auto) Abs Immat Gran (auto) Absolute Neuts (auto) Absolute Nucleated RBC Nucleated RBC % (auto) Smear Tech's Comments VBG pH 7.23 L 7.26 L VBG pCO2 138 125 VBG pO2 180 67 VBG HCO3 58 H 57 H VBG O2 Saturation 100.0 87.0 VBG Base Excess 22.9 23.0 Anion Gap Estim Creat Clear Calc Estimated GFR Random Glucose Calcium Random Vancomycin 16.9 07/18/24 07/19/24 07/19/24 22:12 06:46 06:46 MCV 106.1 H D MCH 29.8 MCHC 28.1 L RDW 12.9 Plt Count 220 MPV 9.7 Immature Gran % (Auto) 2.6 H Neut % (Auto) 82.5 H Lymph % (Auto) 3.1 L [place] % (Auto) 11.5 H Eos % (Auto) 0.0 Baso % (Auto) 0.3 Lymph # (Auto) 0.5 L [place] # (Auto) 1.8 H Eos # (Auto) 0.0 Baso # (Auto) 0.0 Abs Immat Gran (auto) 0.40 H Absolute Neuts (auto) 12.9 H Absolute Nucleated RBC 0.020 H Nucleated RBC % (auto) 0.1 Smear Tech's Comments VERIFIED VBG pH 7.40 VBG pCO2 91 VBG pO2 137 VBG HCO3 57 H VBG O2 Saturation 99.0 VBG Base Excess 26.5 Anion Gap 17 Estim Creat Clear Calc 39.6 39.6 Estimated GFR 49 Random Glucose Calcium Random Vancomycin 07/19/24 07/19/24 06:46 08:12 MCV MCH MCHC RDW Plt Count MPV Immature Gran % (Auto) Neut % (Auto) Lymph % (Auto) [place] % (Auto) Eos % (Auto) Baso % (Auto) Lymph # (Auto) [place] # (Auto) Eos # (Auto) Baso # (Auto) Abs Immat Gran (auto) Absolute Neuts (auto) Absolute Nucleated RBC Nucleated RBC % (auto) Smear Tech's Comments VBG pH 7.09 L* VBG pCO2 TNP VBG pO2 77 VBG HCO3 56 H VBG O2 Saturation 91.0 VBG Base Excess 17.8 Anion Gap Estim Creat Clear Calc Estimated GFR 49 Random Glucose 156 H Calcium 9.5 Random Vancomycin Microbiology Microbiology Results: Microbiology 07/18/24 10:10 Gram Stain - Final Sputum - Expectorated Sputum Culture - Preliminary Culture in progress. Assessment and Plan (1) Acute on chronic respiratory failure with hypoxia and hypercapnia: Status: Acute Plan 82-year-old male with pertinent history of chronic hypoxemic respiratory failure due to COPD on 2 L supplemental oxygen, chronic atrial fibrillation on anticoagulation, gastroesophageal reflux disease, mixed hyperlipidemia, congestive heart failure with preserved ejection fraction who presents to the emergency department for evaluation of dyspnea. Acute on chronic hypoxic respiratory failure with hypercarbia secondary to COPD exacerbation VQ scan with low probability of PE, venous doppler us negative Repeat chest CT 07/16 showing [id number] bilateral pleural effusions, enlarged right cardiac atria, enlarged pulmonary trunk, regular opacity in the right lower lobe Placed on BiPAP with worsening VBG explaind to family the need for intubation but they were comfortable with changing him to [employer] as he made it clear to them multiple times that he did not wanted to be on life support machines. Morphine ATC and PRN Valium ATC and PRN DC rest of medications Scopalamine for secretions Status changed in EMR. ACP: Discussed with his HCP- Ree and his daughter at the bedside who said the patient made it clear that he never wanted to be on any life supporting machines and given the current status of his medical condition they would switch him to comfort measures only. He will be taken off the Bipap machine. Quality Stroke Does the patient have a stroke diagnosis?: No VTE Prior VTE?: No VTE Risk Level:: Medical - moderate - high VTE Device Contraindication: Treatment Not Indicated VTE Drug Contraindication: N/A - Med Ordered
[2024-07-19] MEDS: diazePAM 10 MG/2 ML CARTRIDGE IVPUSH ×2 (12:01→16:40)
--- NOTE | 2024-07-19 12:20 | PC.NURSE ---
unresponsive , labor breathing , desating on BIPAP to low 80's . MD discussed with HCP and decision was made to make him BELT SANDER STONE . Medicated with Diazepam , BIPAP was changed to oxymask for comfort . Family : and daughter at bedside
--- NOTE | 2024-07-19 12:26 | PM.PNPUL ---
Subjective Subjective Date of Service: 07/19/24 Principal diagnosis: Atrial fibrillation Interval history: The patient was seen on exam. Currently on BiPAP nonresponsive. Patient with altered mental status likely multifactorial. Family meeting to discuss goals of care will take place. I do agree that he has a poor prognosis in view of his significant pulmonary disease in not likely to do well. Currently being ruled out for TB but likely has underlying infectious process. Can not rule out cancer. On top of that he has significant issues with electrolyte derangements. Already demonstrating evidence of multiorgan system failure. Objective Data Labs 07/19/24 06:46 07/19/24 06:46 Labs: Laboratory Results - last 24 hr 07/18/24 07/18/24 07/18/24 13:51 15:54 22:12 WBC RBC Hgb Hct MCV MCH MCHC RDW Plt Count MPV Immature Gran % (Auto) Neut % (Auto) Lymph % (Auto) [place] % (Auto) Eos % (Auto) Baso % (Auto) Lymph # (Auto) [place] # (Auto) Eos # (Auto) Baso # (Auto) Abs Immat Gran (auto) Absolute Neuts (auto) Absolute Nucleated RBC Nucleated RBC % (auto) Smear Tech's Comments VBG pH 7.26 L 7.40 VBG pCO2 125 91 VBG pO2 67 137 VBG HCO3 57 H 57 H VBG O2 Saturation 87.0 99.0 VBG Base Excess 23.0 26.5 Sodium Potassium Chloride Carbon Dioxide Anion Gap BUN Creatinine Estim Creat Clear Calc Estimated GFR Random Glucose Calcium Random Vancomycin 16.9 07/19/24 07/19/24 07/19/24 06:46 06:46 06:46 WBC 15.6 H RBC 4.59 L Hgb 13.7 L Hct 48.7 D MCV 106.1 H D MCH 29.8 MCHC 28.1 L RDW 12.9 Plt Count 220 MPV 9.7 Immature Gran % (Auto) 2.6 H Neut % (Auto) 82.5 H Lymph % (Auto) 3.1 L [place] % (Auto) 11.5 H Eos % (Auto) 0.0 Baso % (Auto) 0.3 Lymph # (Auto) 0.5 L [place] # (Auto) 1.8 H Eos # (Auto) 0.0 Baso # (Auto) 0.0 Abs Immat Gran (auto) 0.40 H Absolute Neuts (auto) 12.9 H Absolute Nucleated RBC 0.020 H Nucleated RBC % (auto) 0.1 Smear Tech's Comments VERIFIED VBG pH VBG pCO2 VBG pO2 VBG HCO3 VBG O2 Saturation VBG Base Excess Sodium 163 H* Potassium 5.6 H Chloride 107 Carbon Dioxide 45 H* Anion Gap 17 BUN 61 H Creatinine 1.38 1.38 Estim Creat Clear Calc 39.6 39.6 Estimated GFR 49 Random Glucose Calcium Random Vancomycin 07/19/24 07/19/24 06:46 08:12 WBC RBC Hgb Hct MCV MCH MCHC RDW Plt Count MPV Immature Gran % (Auto) Neut % (Auto) Lymph % (Auto) [place] % (Auto) Eos % (Auto) Baso % (Auto) Lymph # (Auto) [place] # (Auto) Eos # (Auto) Baso # (Auto) Abs Immat Gran (auto) Absolute Neuts (auto) Absolute Nucleated RBC Nucleated RBC % (auto) Smear Tech's Comments VBG pH 7.09 L* VBG pCO2 TNP VBG pO2 77 VBG HCO3 56 H VBG O2 Saturation 91.0 VBG Base Excess 17.8 Sodium Potassium Chloride Carbon Dioxide Anion Gap BUN Creatinine Estim Creat Clear Calc Estimated GFR 49 Random Glucose 156 H Calcium 9.5 Random Vancomycin Microbiology Microbiology Results: Microbiology 07/18/24 10:10 Sputum - Expectorated Gram Stain - Final 07/18/24 10:10 Sputum - Expectorated Sputum Culture - Preliminary Culture in progress. 07/12/24 17:21 Blood - Venous Blood Culture - Final No growth after 5 days. 07/12/24 17:23 Blood - Venous Blood Culture - Final No growth after 5 days. Review of Systems Review of Systems Yes Unobtainable due to mental status Physical Exam Vital Signs: Vital Signs: Last Vital Signs Temp 98.2 F 07/19/24 08:00 Pulse 100 07/19/24 08:39 Resp 20 07/19/24 08:39 BP 147/61 H 07/19/24 08:00 Pulse Ox 90 L 07/19/24 08:00 O2 Del Method Oxymask 07/19/24 08:00 O2 Flow Rate 15 07/19/24 08:00 FiO2 96 07/14/24 03:00 Oxygen Flow Rate 2 07/12/24 17:03 BMI result Body Mass Index 21.5 Const: Other: Constitutional : altered , not in distress Cardiovascular : no JVP, no lower extremity edema Respiratory : bilateral chest movement, not in resp distress , On bipap Gastrointestinal: soft, lax, Non tender Skin : Warm, Dry Neurological : altered Procedures Date of Service Date of Service: 07/19/24 Assessment and Plan Assessment and plan (1) Acute on chronic respiratory failure with hypoxia and hypercapnia: Status: Acute (2) Pulmonary nodules: Status: Acute (3) Right-sided heart failure: Status: Acute (4) Bronchiectasis: Status: Acute (5) COPD exacerbation: Status: Acute (6) CHF (congestive heart failure): Status: Acute Plan Goals of care should be discussed. In view of his significant altered mental status BiPAP is contraindicated. The patient is already DNR. In view of his multiple comorbidities and poor prognosis the family should consider comfort measures only. Time Spent With Patient Time: Total time managing care of this patient today ____ minutes. Progress Note: Quality Stroke Does the patient have a stroke diagnosis?: No
[2024-07-19] MEDS: Scopolamine 1.5 MG PATCH.TD.3 EAR-BEHIND (13:09)
--- NOTE | 2024-07-19 13:40 | MHC.CM.PN ---
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
[2024-07-19] MEDS: Morphine Sulfate 2 MG/ML CARTRIDGE IVPUSH ×2 (14:11→18:17)
--- NOTE | 2024-07-19 14:49 | HO.WOUND ---
Wound Consult: Initial 84yr old male admitted to [facility] on 07/12/24 - See progress notes and H&P for detailed history.? Wound consult placed for bridge of nose - BIPAP in use.?Chart review reveals patient recently transitioned to Comfort Measures Only care. All topical orders are based on comfort and maintaining dignity. Please reconsult should concerns arise. Recommendations: 1. Turn and Reposition every 2 hours and as needed for patient comfort.? Use pillows or wedges to support off loading positions. 2. Off Load all bony prominences with use of pillows and heel boots if needed.? Apply Preventative foams where needed. ? 3. Monitor for incontinence and moisture control, use barrier creams when needed for prevention and treatment. 4. Provide adequate and supplemental nutrition.? 5. Continue low air loss mattress. 6. When applicable maintain blood glucose levels per Providers order. Bridge of nose - Routine cleansing. Apply skin prep be sure to avoid eyes. Apply foam dressing under BIPAP when in use to aid in pressure redistribution - be sure to off load pressure when able. Re-consult wound care Nurse for wound deterioration or wound changes.
--- NOTE | 2024-07-19 22:20 | PM.EVENT ---
Event Note Date of Service: 07/19/24 Event Note: Note I was called to patient's bedside to pronounce patient, Mac Marsh, has . No spontaneous movement were present. There was not respond to verbal or tactile stimuli. Pupils were mid dilated and fixed. No breath sounds were appreciated over either lung field. No carotid pulses were palpable. No heart sounds were auscultated over entire pericardium. Patient was pronounced at 07/19/2024 - 9:45 PM. Daughter were at bedside. The family declined autopsy. 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 Time of was 9:45 PM. Time Spent With Patient Time: Total time managing care of this patient today ____ minutes.
--- NOTE | 2024-07-19 23:50 | PM.DS ---
DS: Providers Provider Date of Service: 07/19/24 Date of admission: 07/12/24 19:34 Date of discharge: 07/19/24 Primary care physician: Jefferson Taylor MD Consults: 07/12/24 22:11 Consult to Neurology Routine Consulting Provider: [facility] Reason for consultation: left sided weakness 07/14/24 01:38 Consult to Urology Routine Consulting Provider: [facility] Reason for consultation: hematuria 07/16/24 07:22 Consult to Cardiology Routine Consulting Provider: [facility] Reason for consultation: afib rvr 07/16/24 11:17 Consult to Pulmonology Routine Consulting Provider: [facility] Reason for consultation: hypoxia, chest CT abnormal 07/19/24 08:32 Consult to Wound Care Routine Reason for consultation: Skin assessment due to Device use 07/19/24 08:34 Consult to Critical Care Routine Consulting Provider: Fabricio Smith Reason for consultation: AMS, hypercapnia, res. acidosis, hypernatremia DS: Diagnosis Discharge Diagnosis (1) Acute on chronic respiratory failure with hypoxia and hypercapnia: Status: Acute (2) Pulmonary nodules: Status: Acute (3) Right-sided heart failure: Status: Acute (4) Bronchiectasis: Status: Acute (5) COPD exacerbation: Status: Acute (6) CHF (congestive heart failure): Status: Acute (7) Cor pulmonale: Status: Acute (8) Acute CVA (cerebrovascular accident): Status: Acute (9) Left-sided weakness: Status: Acute (10) Cerebral infarction: Status: Acute (11) Pneumonia: Status: Acute DS: Summary Hospital Course Hospital Course: The patient had prolonged hospital stay. for full details please return to EMR. Admission note HPI This is a 82-year-old male with pertinent history of chronic hypoxemic respiratory failure due to COPD on 2 L supplemental oxygen, chronic atrial fibrillation on anticoagulation, gastroesophageal reflux disease, mixed hyperlipidemia, congestive heart failure with preserved ejection fraction who presents to the emergency department for evaluation of dyspnea. Patient states his symptoms started 3 days prior to presentation. He has having shortness of breath which is worse with exertion. Also has associated purulent cough. Does have wheezing not relieve with home inhaler. Denies dyspnea or PND. Does have leg swelling but it is chronic as per the patient. No known fever, chills, chest pain, palpitations, abdominal pain, changes in urinary or bowel habits. In the emergency department, as per ER provider, patient had sudden onset of left-sided upper and lower extremity weakness. Stroke protocol was called and patient underwent CT head and CT angio head and neck. Neurology was consulted who requested admission with aspirin. Patient states his left-sided weakness has improved at the time of my evaluation. CT head without any acute abnormality and CT angio head and neck with patent CTA. Hospital course The patient was admitted for treatment of Acute on chronic hypoxic respiratory failure with hypercarbia secondary to COPD exacerbation with evidence of acute cerebral infarction per neurology evaluation. VQ scan with low probability of PE, venous doppler us negative. Chest CT 07/16 showing [id number] bilateral pleural effusions, enlarged right cardiac atria, enlarged pulmonary trunk, regular opacity in the right lower lobe. Placed on BiPAP with worsening VBG but his blood gas continued to get worse with his altered mentation. 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 He was taken off the BiPaP and placed on comfort measures with Oxygen, Morphine ATC and PRN, Valium ATC and PRN and Scopalamine for secretions. He on 07/19/2024 at 9:45 pm. and daughter were on the bedside. Time Attestation Discharge Coordination Time (in mins): 45 Quality: Safe Use of Opioids Does Pt have an Active Cancer Diagnosis on the Problem List?: No Quality: Stroke Does the patient have a stroke diagnosis?: Yes Reason for No Anti-thrombotic at DC: Not indicated Reason for No Anticoagulant at DC: N/A - Med Ordered Reason Not Initiating IV-Tpa: Not indicated Reason for No Anti-thrombotic by Day Two: N/A - Med Ordered Reason for No Statin at DC: N/A - Med Ordered Physical Exam Vital Signs: Vital Signs: Last Vital Signs Temp 98.2 F 07/19/24 08:00 Pulse 100 07/19/24 08:39 Resp 20 07/19/24 08:39 BP 147/61 H 07/19/24 08:00 Pulse Ox 90 L 07/19/24 08:00 O2 Del Method Oxymask 07/19/24 08:00 O2 Flow Rate 15 07/19/24 08:00 FiO2 96 07/14/24 03:00 Oxygen Flow Rate 2 07/12/24 17:03 BMI result Body Mass Index 21.5 Const: Other: DS: Data Data Completed and Pending Labs on day of discharge: Laboratory Results - last 24 hr 07/17/24 07/19/24 07/19/24 10:58 06:46 06:46 Immature Gran % (Auto) 2.6 H Neut % (Auto) 82.5 H Lymph % (Auto) 3.1 L [place] % (Auto) 11.5 H Eos % (Auto) 0.0 Baso % (Auto) 0.3 Lymph # (Auto) 0.5 L [place] # (Auto) 1.8 H Eos # (Auto) 0.0 Baso # (Auto) 0.0 Abs Immat Gran (auto) 0.40 H Absolute Neuts (auto) 12.9 H Absolute Nucleated RBC 0.020 H Nucleated RBC % (auto) 0.1 Smear Tech's Comments VERIFIED VBG pH VBG pCO2 VBG pO2 VBG HCO3 VBG O2 Saturation VBG Base Excess Sodium 163 H* Potassium 5.6 H Chloride 107 Carbon Dioxide 45 H* Anion Gap 17 BUN 61 H Creatinine 1.38 1.38 Estim Creat Clear Calc 39.6 Estimated GFR Random Glucose Calcium TB Test (T-Spot) Com Negative TB Test Nil Control Passed TB Test Panel A 0 TB Test Panel B 0 TB Test Positive Cntrl Passed 07/19/24 07/19/24 07/19/24 06:46 06:46 08:12 Immature Gran % (Auto) Neut % (Auto) Lymph % (Auto) [place] % (Auto) Eos % (Auto) Baso % (Auto) Lymph # (Auto) [place] # (Auto) Eos # (Auto) Baso # (Auto) Abs Immat Gran (auto) Absolute Neuts (auto) Absolute Nucleated RBC Nucleated RBC % (auto) Smear Tech's Comments VBG pH 7.09 L* VBG pCO2 TNP VBG pO2 77 VBG HCO3 56 H VBG O2 Saturation 91.0 VBG Base Excess 17.8 Sodium Potassium Chloride Carbon Dioxide Anion Gap BUN Creatinine Estim Creat Clear Calc 39.6 Estimated GFR 49 49 Random Glucose 156 H Calcium 9.5 TB Test (T-Spot) Com TB Test Nil Control TB Test Panel A TB Test Panel B TB Test Positive Cntrl Preliminary micro results at discharge 07/18/24 10:10 Sputum Culture - Preliminary Sputum - Expectorated Culture in progress. Imaging Chest x-ray: Radiologist's impression: ITS Impressions Brain MRI 07/13/24 12:44 IMPRESSION: 1. Motion degraded exam, limiting the sensitivity of the study. 2. There is no intracranial hemorrhage, acute infarction, mass effect, or edema. 3. There are moderate changes of small vessel ischemia. There are old lacunar type infarcts in the bilateral cerebellar hemispheres left greater than right. 4. Trace fluid in the left mastoid air cells. 5. Moderate dependent mucosal thickening left maxillary sinus. No air-fluid levels. Electronically signed by: Javid Baker MD 07/13/2024 01:34 PM EDT RP Pulmonary Perfusion Imaging 07/17/24 08:20 IMPRESSION: Low probability for pulmonary emboli. Electronically signed by: Yony Jamies MD 07/17/2024 10:09 AM EDT RP Venous Duplex 07/17/24 09:59 IMPRESSION: No acute deep venous thrombosis interrogated veins, bilateral lower extremities. Negative for DVT. Electronically signed by: Juventino Knight MD 07/17/2024 11:07 AM EDT RP Discharge Plan Discharge Date/Time: 07/19/24 21:45 Patient Disposition: Discharge Diagnosis: Referrals: Jefferson Taylor MD [Primary Care Provider] - 1 Week Discharge Medications: No Action atorvastatin 20 mg tablet 20 mg PO DAILY Qty: 90 3RF spironolactone 25 mg tablet 12.5 mg PO DAILY 90 Days Qty: 45 2RF metoprolol succinate 100 mg tablet extended release 24 hr 100 mg PO DAILY Qty: 90 3RF gabapentin 100 mg capsule 100 mg PO TID Qty: 270 0RF Trelegy Ellipta 200-62.5-25 mcg blister with device 1 ea inhalation DAILY pantoprazole 40 mg tablet,delayed release (DR/EC) 40 mg PO DAILY@0630 apixaban 5 mg tablet 5 mg PO BID diltiazem HCl 120 mg capsule,extended release 24 hr 120 mg PO BEDTIME ropinirole 2 mg tablet 2 mg PO BID furosemide 20 mg tablet 20 mg PO BID diltiazem HCl 240 mg capsule,extended release 24hr 240 mg PO DAILY Qty: 90 1RF Print Language: Latvian Discharge Date/Time: 07/20/24 00:35
[2024-07-20 00:34] LABS: TS Negative Control Passed; TS Panel A 0; TS Panel B 0; TS Positive Control Passed; TSpotTB Negative (Negative)
--- NOTE | 2024-08-08 14:24 | P.CDIM_ITS ---
PROVIDER RESPONSE TEXT: To clarify, the appropriate diagnosis supported by the clinical indicators: Sepsis is/was present and was present on admission: Confirmed QUERY TEXT: PHYSICIAN'S DOCUMENTATION REQUEST Date of Query: 08/08/2024 09:28 AM EDT Patient Name: Mac Marsh Admit Date: 07/12/2024 Dear Gabbie Crews MD, RETROSPECTIVE QUERY A review of the medical record indicates additional documentation may be needed. Please review below and update the documentation accordingly. Clinical indicators: Progress notes 07/16, , - Sepsis and acute on chronic respiratory failure due to right-sided pneumonia and COPD exacerbation. Sepsis resolved. S/P IV Ceftriaxone and Azithromycin Noted hypoxia on 07/14 > repeat CXR showing multifocal b/l pulmonary opacities mildly worsening. Changed antibiotics to Vancomycin and Zosyn. WBC 12.1 LA 2.1 HR 120 RR 24 TEMP 100.2 D/S 07/19 - Acute on chronic hypoxic respiratory failure due to COPD exacerbation. Sepsis Systemic manifestations of infection, with 2 or more SIRS criteria which include: Fever > 100.4?F or hypothermia < 96.8?F Leukocytosis - WBC > 12,000 or leukopenia, WBC < 4,000, or > 10% bands Tachycardia- > 90 beats/minute Tachypnea- RR > 20 breaths/minute or PaCO2 < 32mmHg Source: [employer]ck Manual 2013 Documentation should include the known or suspected organism, and the underlying infection, such as UTI or pneumonia Severe Sepsis Sepsis with associated acute organ dysfunction, such as renal or respiratory failure Documentation should indicate the association between the sepsis and the organ dysfunction Based on the above information and the recognized standard for sepsis, could you please clarify if this diagnoses is still accurate and reflective of the patient's condition to ensure quality of the medical record. - Sepsis is/was present and was present on admission resolved, possible, probable, suspected etc. After study Sepsis has been ruled out Other (explain) Clinically unable to determine (explain) Thank you, Lupe Robles, CCS, CDIS Use of terms such as suspected, likely, concern for, or probable (associated with a specific diagnosis that is being evaluated, monitored, or treated as if it exists) are acceptable and can be coded in the inpatient setting, when documented at the time of discharge. Please use your independent medical judgment in providing your response. THIS QUERY IS PART OF THE PERMANENT MEDICAL RECORD
== END 2024-07-20 00:35 | disposition expired | DRG 871 ==
LOC: HO.ED 19:35 → HO.EDOVER 22:09 → HO.S3 07-13 07:48 → HO.EDOVER 07-13 08:44 → HO.IMC 07-13 14:39
PROVIDERS: Internal Medicine; Nurse Practitioner Acute Care; Physician Assistant Medical; Registered Nurse Emergency; Admitting Provider Student in an Organized Health Care Education/Training Program; Emergency Provider Emergency Medicine; PCP Internal Medicine; Visit Provider Student in an Organized Health Care Education/Training Program
DX: A41.9 Sepsis, unspecified organism (principal); G92.8 Other toxic encephalopathy; I50.33 Acute on chronic diastolic (congestive) heart failure; J18.9 Pneumonia, unspecified organism; J96.21 Acute and chronic respiratory failure with hypoxia; J96.22 Acute and chronic respiratory failure with hypercapnia; G81.94 Hemiplegia, unspecified affecting left nondominant side; F05 Delirium due to known physiological condition; I48.92 Unspecified atrial flutter; J47.1 Bronchiectasis with (acute) exacerbation; J47.0 Bronchiectasis with acute lower respiratory infection; E87.21 Acute metabolic acidosis; R31.9 Hematuria, unspecified; T45.516A Underdosing of anticoagulants, initial encounter; Z66 Do not resuscitate; I50.813 Acute on chronic right heart failure; I27.29 Other secondary pulmonary hypertension; E78.2 Mixed hyperlipidemia; E87.5 Hyperkalemia; Z51.5 Encounter for palliative care; G25.81 Restless legs syndrome; I16.0 Hypertensive urgency; K21.9 Gastro-esophageal reflux disease without esophagitis; I11.0 Hypertensive heart disease with heart failure; I48.0 Paroxysmal atrial fibrillation; Z20.822 Contact with and (suspected) exposure to COVID-19; Z99.81 Dependence on supplemental oxygen; Z79.01 Long term (current) use of anticoagulants; Z79.899 Other long term (current) drug therapy
CPT/HCPCS: 0241U; 36415; 36600; 70450; 70496; 70498; 70551; 71045; 71250; 78580; 80048; 80053; 80061; 80202; 82565; 82803; 82947; 83036; 83605; 83880; 84484; 85025; 85027; 85610; 86481; 87040; 87070; 87116; 87205; 87206; 93005; 93306; 93970; 94640; 94660; 97162; 97166; 99285; A9540; J0456; J0696; J1160; J1171; J1271; J1938; J2270; J2359; J2543; J2919; J3360; J3370; J3371; J3475; J7120; Q9957; Q9967

== ENCOUNTER → 2024-07-12 17:06 | Outpatient (BNV) | payer MEDICARE, SELFPAY | PROVIDERS: Admitting Provider Student in an Organized Health Care Education/Training Program; Emergency Provider Emergency Medicine; PCP Internal Medicine; Visit Provider Internal Medicine Cardiovascular Disease | DX: I48.91 Unspecified atrial fibrillation (principal); I45.10 Unspecified right bundle-branch block; I25.2 Old myocardial infarction | CPT/HCPCS: 93010 ==

== ENCOUNTER → 2024-07-12 17:07 | Outpatient (BNV) | payer MEDICARE, SELFPAY | PROVIDERS: Emergency Provider Emergency Medicine; PCP Internal Medicine; Visit Provider Radiology Diagnostic Radiology | DX: I69.354 Hemiplegia and hemiparesis following cerebral infarction affecting left non-dominant side (principal); R06.00 Dyspnea, unspecified; R50.9 Fever, unspecified | CPT/HCPCS: 70450; 70496; 70498; 71045 ==

== ENCOUNTER 2024-07-12 19:34 | Outpatient (BNV) | payer MEDICARE, SELFPAY | END 2024-07-16 07:47 | PROVIDERS: Admitting Provider Student in an Organized Health Care Education/Training Program; Emergency Provider Emergency Medicine; PCP Internal Medicine; Visit Provider Radiology Diagnostic Radiology | DX: J90 Pleural effusion, not elsewhere classified (principal); R91.8 Other nonspecific abnormal finding of lung field; I28.8 Other diseases of pulmonary vessels; I51.7 Cardiomegaly | CPT/HCPCS: 71250 ==

== ENCOUNTER 2024-07-12 19:34 | Outpatient (BNV) | payer MEDICARE, SELFPAY | END 2024-07-14 13:01 | PROVIDERS: Admitting Provider Student in an Organized Health Care Education/Training Program; Emergency Provider Emergency Medicine; PCP Internal Medicine; Visit Provider Radiology Diagnostic Radiology | DX: R09.02 Hypoxemia (principal) | CPT/HCPCS: 71045 ==

== ENCOUNTER 2024-07-12 19:34 | Outpatient (BNV) | payer MEDICARE, SELFPAY | END 2024-07-13 07:00 | PROVIDERS: Admitting Provider Student in an Organized Health Care Education/Training Program; Emergency Provider Emergency Medicine; PCP Internal Medicine; Visit Provider Internal Medicine Cardiovascular Disease | DX: I51.7 Cardiomegaly (principal); I35.8 Other nonrheumatic aortic valve disorders | CPT/HCPCS: 93306 ==

== ENCOUNTER 2024-07-12 19:34 | Outpatient (BNV) | payer MEDICARE, SELFPAY | END 2024-07-15 18:47 | PROVIDERS: Admitting Provider Student in an Organized Health Care Education/Training Program; Emergency Provider Emergency Medicine; PCP Internal Medicine; Visit Provider Internal Medicine Cardiovascular Disease | DX: I48.91 Unspecified atrial fibrillation (principal); I45.10 Unspecified right bundle-branch block; I25.2 Old myocardial infarction | CPT/HCPCS: 93010 ==

== ENCOUNTER 2024-07-12 19:34 | Outpatient (BNV) | payer MEDICARE, SELFPAY | END 2024-07-13 12:44 | PROVIDERS: Admitting Provider Student in an Organized Health Care Education/Training Program; Emergency Provider Emergency Medicine; PCP Internal Medicine; Visit Provider Radiology Diagnostic Radiology | DX: I63.81 Other cerebral infarction due to occlusion or stenosis of small artery (principal); J84.9 Interstitial pulmonary disease, unspecified | CPT/HCPCS: 70551; 71045 ==

== ENCOUNTER 2024-07-12 19:34 | Outpatient (BNV) | payer MEDICARE, SELFPAY | END 2024-07-17 08:20 | PROVIDERS: Admitting Provider Student in an Organized Health Care Education/Training Program; Emergency Provider Emergency Medicine; PCP Internal Medicine; Visit Provider Radiology Diagnostic Radiology | DX: R06.00 Dyspnea, unspecified (principal); R09.02 Hypoxemia | CPT/HCPCS: 78580; 93970 ==

== ENCOUNTER → 2024-07-12 19:34 | Outpatient (BNV) | payer MEDICARE, SELFPAY | PROVIDERS: Admitting Provider Student in an Organized Health Care Education/Training Program; Emergency Provider Emergency Medicine; PCP Internal Medicine; Visit Provider Internal Medicine Critical Care Medicine | DX: I50.30 Unspecified diastolic (congestive) heart failure (principal); K21.9 Gastro-esophageal reflux disease without esophagitis; J44.1 Chronic obstructive pulmonary disease with (acute) exacerbation; J96.01 Acute respiratory failure with hypoxia; I48.20 Chronic atrial fibrillation, unspecified | CPT/HCPCS: 99232 ==

== ENCOUNTER → 2024-07-12 19:34 | Outpatient (BNV) | payer MEDICARE, SELFPAY | PROVIDERS: Admitting Provider Student in an Organized Health Care Education/Training Program; Emergency Provider Emergency Medicine; PCP Internal Medicine; Visit Provider Psychiatry & Neurology Neurology | DX: I63.411 Cerebral infarction due to embolism of right middle cerebral artery (principal) | CPT/HCPCS: 99222 ==

== ENCOUNTER → 2024-07-12 19:34 | Outpatient (BNV) | payer MEDICARE, SELFPAY | PROVIDERS: Admitting Provider Student in an Organized Health Care Education/Training Program; Emergency Provider Emergency Medicine; PCP Internal Medicine; Visit Provider Hospitalist | DX: J44.1 Chronic obstructive pulmonary disease with (acute) exacerbation (principal); I27.81 Cor pulmonale (chronic); I50.813 Acute on chronic right heart failure; J47.0 Bronchiectasis with acute lower respiratory infection; R91.8 Other nonspecific abnormal finding of lung field; J96.21 Acute and chronic respiratory failure with hypoxia; J96.22 Acute and chronic respiratory failure with hypercapnia | CPT/HCPCS: 99223; 99233 ==

== ENCOUNTER → 2024-07-12 19:34 | Outpatient (BNV) | payer MEDICARE, SELFPAY | PROVIDERS: Admitting Provider Student in an Organized Health Care Education/Training Program; Emergency Provider Emergency Medicine; PCP Internal Medicine; Visit Provider Student in an Organized Health Care Education/Training Program | DX: J96.21 Acute and chronic respiratory failure with hypoxia (principal); J96.22 Acute and chronic respiratory failure with hypercapnia; R91.8 Other nonspecific abnormal finding of lung field; J47.0 Bronchiectasis with acute lower respiratory infection; I50.813 Acute on chronic right heart failure; I63.411 Cerebral infarction due to embolism of right middle cerebral artery; J44.1 Chronic obstructive pulmonary disease with (acute) exacerbation | CPT/HCPCS: 99223; 99232; 99233; 99499 ==

== ENCOUNTER → 2024-07-12 19:34 | Outpatient (BNV) | payer MEDICARE, SELFPAY | PROVIDERS: Admitting Provider Student in an Organized Health Care Education/Training Program; Emergency Provider Emergency Medicine; PCP Internal Medicine; Visit Provider Internal Medicine Cardiovascular Disease | DX: J96.21 Acute and chronic respiratory failure with hypoxia (principal); J96.22 Acute and chronic respiratory failure with hypercapnia; I50.813 Acute on chronic right heart failure; I48.20 Chronic atrial fibrillation, unspecified | CPT/HCPCS: 99223 ==

== ENCOUNTER → 2024-07-12 19:34 | Outpatient (BNV) | payer MEDICARE, SELFPAY | PROVIDERS: Admitting Provider Student in an Organized Health Care Education/Training Program; Emergency Provider Emergency Medicine; PCP Internal Medicine; Visit Provider Urology | DX: R31.0 Gross hematuria (principal) | CPT/HCPCS: 99222 ==